=== PATIENT | female | born 1970 | race Caucasian/White ===

== ENCOUNTER → 2016-10-11 | Outpatient (CLI) | payer OTHER ==
[~2016-10-11] MED LIST: /CIPR75TA OR; /ONDA4TA OR; ADVIL PO; CARI350T; IBUP600T OR; METHACHOLINE KIT (J7674) INH ONE; ROBA750T OR; SOMA350T OR; TOPI100T; TOPI25TA2 OR; TRAM50TA2; TRAM50TA2 PO; VICO5TAB; VICO5TAB OR; VOLT1GEL TOP; ZANA4CAP OR; savella PO
== END ==
LOC: M CARPUL 14:09
PROVIDERS: ATTEND Nurse Practitioner Adult Health
DX: Z72.0 Tobacco use (principal)

== ENCOUNTER → 2016-10-29 | Outpatient (REF) | payer OTHER ==
[~2016-10-29] MED LIST changes: -METHACHOLINE KIT (J7674) INH ONE
== END ==
LOC: M SFHCWAGY 15:48
PROVIDERS: ATTEND Family Medicine
DX: R87.613 High grade squamous intraepithelial lesion on cytologic smear of cervix (HGSIL) (principal)

== ENCOUNTER → 2016-11-12 | Outpatient (CLI) | payer OTHER ==
--- NOTE | 2016-11-12 16:29 | REP ---
Clinical: Menorrhagia with irregular menstrual cycles . Technique: Transabdominal pelvic ultrasound followed by transvaginal examination for better evaluation of the endometrium and adnexa with color Doppler evaluation of the ovaries. Findings: Bladder is unremarkable and measures 8.7 x 6.3 x 5.2 cm . Normal anteverted uterus measures 9.1 x 4.4 x 6.1 cm . The endometrial complex measures 7 mm thickness. No discrete uterine or endometrial abnormalities are appreciated. Bilateral ovaries are normal in appearance and vascularity without evidence for torsion. Right ovary measures 3.6 x 3.7 x 2.6 cm with 2.6 cm dominant follicle ; R I = 0.57 . Left ovary measures 1.7 x 1.2 x 1.4 cm with 1 cm follicle ; R I = 0.48 . No pelvic fluid or adnexal mass lesions. Impression: 1. Normal pelvic ultrasound. No torsion.
== END ==
LOC: M WHC 14:49
PROVIDERS: ATTEND Nurse Practitioner Family
DX: N92.0 Excessive and frequent menstruation with regular cycle (principal)

== ENCOUNTER 2016-11-14 22:50 | Emergency (ER) | payer OTHER | END 2016-11-15 00:25 | disposition left against medical advice (07) | LOC: M ED 22:50 | DX: T78.40XA Allergy, unspecified, initial encounter (principal); Z53.20 Procedure and treatment not carried out because of patient's decision for unspecified reasons ==

== ENCOUNTER → 2016-12-09 | Outpatient (CLI) | payer OTHER ==
[~2016-12-09] VITALS: Ht 162.6 cm; Wt 94.3 kg
[~2016-12-09] MED LIST changes: +ACET650T2 PO; +AKWASOL OU; +ALBU17IN INH; +ALBUTEROL SULFATE 2.5 MG/0.5 ML INH NEB SOLN As Ordered ONE; +EXCETAB80 PO; +FLON1SPR; +IBUP60TA PO; +LIDOCAINE 2% INJ 100 MG/5 ML SDV (FOR ANES.) As Ordered ONE; +LIPI10TA PO; +NEUR600T PO; +NS 1,000 ML IV SCH; +OMEP40CA2 PO; +PROPOFOL 500 MG/50 ML VIAL As Ordered ONE; +ROBA750T4 PO; +SALI0.652; +SING10TA32 PO; +STEROID SHOT
--- NOTE | 2016-12-09 08:14 | ROOR ---
Patient Name: Dana Foster Procedure Date: 12/09/2016 7:49 AM Date of : 1970 Age: 46 Room: [facility] Gender: Female Note Status: Finalized Procedure: Upper GI endoscopy Indications: Heartburn Providers: Sagar SHAIKH MD Referring MD: Dasha Winchester NP Requesting Provider: Medicines: Monitored Anesthesia Care Complications: No immediate complications. Procedure: Pre-Anesthesia Assessment: - The heart rate, respiratory rate, oxygen saturations, blood pressure, adequacy of pulmonary ventilation, and response to care were monitored throughout the procedure. The Endoscope was introduced through the mouth, and advanced to the second part of duodenum. The upper GI endoscopy was accomplished without difficulty. The patient tolerated the procedure well. Findings: Small Hiatal Hernia. The esophagus was normal. The stomach was normal. The examined duodenum was normal. Impression: - Small Hiatal Hernia. - Normal esophagus. - Normal stomach. - Normal examined duodenum. - No specimens collected. Recommendation: - Follow an antireflux regimen indefinitely. - Continue present medications. Sagar Shaikh MD Sagar SHAIKH MD 12/09/2016 8:14:10 AM This report has been signed electronically. Number of Addenda: 0 Note Initiated On: 12/09/2016 7:49 AM Estimated Blood Loss: Estimated blood loss: none.
--- NOTE | 2016-12-09 08:16 | ROOR ---
Patient Name: Dana Foster Procedure Date: 12/09/2016 7:49 AM Date of : 1970 Age: 46 Room: [facility] Gender: Female Note Status: Finalized Procedure: Colonoscopy Indications: Change in bowel habits, Constipation Providers: Sagar SHAIKH MD Referring MD: Dasha Winchester NP Requesting Provider: Medicines: Monitored Anesthesia Care Complications: No immediate complications. Procedure: Pre-Anesthesia Assessment: - The heart rate, respiratory rate, oxygen saturations, blood pressure, adequacy of pulmonary ventilation, and response to care were monitored throughout the procedure. The Colonoscope was introduced through the anus and advanced to the terminal ileum, with identification of the appendiceal orifice and IC valve. The colonoscopy was performed without difficulty. The patient tolerated the procedure well. The quality of the bowel preparation was good. Findings: The perianal and digital rectal examinations were normal. (Exam: Complete, Prep: Good or Excellent.) The terminal ileum appeared normal. The entire examined colon appeared normal on direct and retroflexion views. Small Internal Hemorrhoids. Impression: - The examined portion of the ileum was normal. - The entire examined colon is normal on direct and retroflexion views. - Small Internal Hemorrhoids. - No specimens collected. Recommendation: - Continue present medications. Sagar Shaikh MD Sagar HSAIKH MD 12/09/2016 8:16:14 AM This report has been signed electronically. Number of Addenda: 0 Note Initiated On: 12/09/2016 7:49 AM Estimated Blood Loss: Estimated blood loss: none.
[2016-12-09 08:45] VITALS: BP 147/88
== END ==
LOC: M OPP 07:13
PROVIDERS: ATTEND Internal Medicine Gastroenterology
DX: R19.4 Change in bowel habit (principal); Z80.0 Family history of malignant neoplasm of digestive organs; K64.8 Other hemorrhoids; R12 Heartburn; K44.9 Diaphragmatic hernia without obstruction or gangrene; F17.200 Nicotine dependence, unspecified, uncomplicated; E78.00 Pure hypercholesterolemia, unspecified; M54.2 Cervicalgia; G43.909 Migraine, unspecified, not intractable, without status migrainosus; R56.9 Unspecified convulsions; J45.909 Unspecified asthma, uncomplicated; R06.83 Snoring; Z79.899 Other long term (current) drug therapy; Z88.5 Allergy status to narcotic agent; Z88.8 Allergy status to other drugs, medicaments and biological substances; Z91.040 Latex allergy status; Z91.89 Other specified personal risk factors, not elsewhere classified

== ENCOUNTER → 2017-01-18 | Outpatient (REF) | payer OTHER ==
[~2017-01-18] MED LIST changes: -ALBUTEROL SULFATE 2.5 MG/0.5 ML INH NEB SOLN As Ordered ONE; -LIDOCAINE 2% INJ 100 MG/5 ML SDV (FOR ANES.) As Ordered ONE; -NS 1,000 ML IV SCH; -PROPOFOL 500 MG/50 ML VIAL As Ordered ONE
[2017-01-18 19:34] LABS: ALBUMIN 3.8 GM/DL (3.2-5.2); ALBUMIN/GLOBULIN RATIO 1.12 (1.00-1.93); ALKALINE PHOSPHATASE 68 U/L (45-117); ALT/SGPT 14 U/L (12-78); ANION GAP 5 MEQ/L (8-16); AST/SGOT 10 U/L (15-37); BILIRUBIN,TOTAL 0.3 MG/DL (0.2-1.0); BLOOD UREA NITROGEN 10 MG/DL (7-18); CALCIUM LEVEL 8.6 MG/DL (8.5-10.1); CARBON DIOXIDE LEVEL 28 MEQ/L (21-32); CHLORIDE LEVEL 107 MEQ/L (98-107); GLOMERULAR FILTRATION RATE > 60.0 (>58); GLUCOSE, FASTING 89 MG/DL (70-105); POTASSIUM SERUM 4.6 MEQ/L (3.5-5.1); SODIUM LEVEL 140 MEQ/L (136-145); TOTAL PROTEIN 7.2 GM/DL (6.4-8.2)
[2017-01-18 20:13] LABS: BASO % 0.6 % (0.0-1.0); EOS # 0.2 K/mm3 (0.0-0.50); EOS % 3.6 % (0.0-3.0); LARGE UNSTAINED CELL # 0.1 K/mm3 (0.0-0.4); LARGE UNSTAINED CELL % 0.7 % (0.0-4.0); LYMPH # 2.3 K/mm3 (1.5-4.5); LYMPH % 34.3 % (24.0-44.0); MEAN CORPUSCULAR HEMOGLOBIN 29.2 pg (27.0-33.0); MEAN CORPUSCULAR HGB CONC 32.6 g/dl (32.0-36.5); MEAN CORPUSCULAR VOLUME 89.6 fl (80.0-96.0); MONO # 0.3 K/mm3 (0.0-0.8); MONO % 4.4 % (0.0-5.0); NEUTROPHILS # 3.7 K/mm3 (1.8-7.7); NEUTROPHILS % 56.4 % (36.0-66.0); PLATELET COUNT, AUTOMATED 415 k/mm3 (150-450); RED CELL DISTRIBUTION WIDTH 12.6 % (11.5-14.5); WHITE BLOOD COUNT 6.6 K/mm3 (4.0-10.0)
[2017-01-18 21:14] LABS: ERYTHROCYTE SEDIMENTATION RATE 11 mm/hr (0-20)
[2017-01-21 00:06] LABS: Lyme Disease IgG/IgM Antibodie <0.91 ISR (0.00-0.90); Lyme Disease IgM Ab Quantitati <0.80 index (0.00-0.79)
== END ==
LOC: M LABDRAW1 17:10
PROVIDERS: ATTEND Internal Medicine Rheumatology
DX: M35.9 Systemic involvement of connective tissue, unspecified (principal); Z79.899 Other long term (current) drug therapy

== ENCOUNTER → 2017-01-24 | Outpatient (REF) | payer OTHER | LOC: M LAB REF 16:58 | PROVIDERS: ATTEND Obstetrics & Gynecology | DX: N87.1 Moderate cervical dysplasia (principal) ==

== ENCOUNTER → 2017-03-30 | Outpatient (REF) ==
[~2017-03-30] MED LIST changes: -ACET650T2 PO; +ACET650T3 PO; +CELE1CAP9 PO; +IBUP1TAB6 PO; -IBUP60TA PO
--- NOTE | 2017-03-30 15:58 | REP ---
PARTIAL LUMBAR SPINE, THREE VIEWS: HISTORY: Degenerative disc disease. There is no acute fracture or subluxation. The intervertebral discs are decreased in height consistent with disc degeneration. Osteophytes are present on L1 through 4. IMPRESSION: Degenerative change as described above. Signed by Bhavik Ko MD 03/30/2017 04:04 P
== END ==
LOC: M SMT 14:35
PROVIDERS: ATTEND Internal Medicine
DX: Z02.1 Encounter for pre-employment examination (principal)

== ENCOUNTER 2017-07-16 15:51 | Emergency (ER) | payer OTHER ==
[~2017-07-16] VITALS: Ht 160 cm; Wt 101.4 kg
[~2017-07-16 15:51] MED LIST changes: -CELE1CAP9 PO
[2017-07-16 16:11] VITALS: BP 147/73
[2017-07-16] MEDS ORDERED: CELE1CAP9 PO (16:16)
[2017-07-16] MEDS ORDERED: NORCO 5/325MG TABLET (BULK FOR ED) PO ONE (19:00)
[2017-07-16] MEDS ORDERED: NORCO, ANEXSIA 5/325MG TABLET (HYDROcodone/ACETAMINOPHEN) PO ONE (19:00)
[2017-07-16] MEDS ORDERED: ONDANSETRON 4 MG ORAL DISINTEGRATING TAB (S0181) PO ONE (19:00)
== END 2017-07-16 19:14 | disposition home or self-care (01) ==
LOC: M ED 15:51
DX: M54.12 Radiculopathy, cervical region (principal); M54.16 Radiculopathy, lumbar region; G89.29 Other chronic pain; J45.909 Unspecified asthma, uncomplicated; K21.9 Gastro-esophageal reflux disease without esophagitis; Z88.5 Allergy status to narcotic agent; Z88.8 Allergy status to other drugs, medicaments and biological substances; Z91.040 Latex allergy status; L23.1 Allergic contact dermatitis due to adhesives; Z79.899 Other long term (current) drug therapy

== ENCOUNTER 2018-01-11 02:49 | Emergency (ER) | payer OTHER ==
[2018-01-11] MEDS: DOXYCYCLINE HYCLATE 100 MG TAB PO (06:37)
== END 2018-01-11 06:45 | disposition home or self-care (01) ==
LOC: M ED 02:49
DX: S40.261A Insect bite (nonvenomous) of right shoulder, initial encounter (principal); W57.XXXA Bitten or stung by nonvenomous insect and other nonvenomous arthropods, initial encounter; Y92.89 Other specified places as the place of occurrence of the external cause; J44.9 Chronic obstructive pulmonary disease, unspecified; K21.9 Gastro-esophageal reflux disease without esophagitis; G89.29 Other chronic pain; M54.9 Dorsalgia, unspecified; Z79.899 Other long term (current) drug therapy; Z88.5 Allergy status to narcotic agent; Z88.8 Allergy status to other drugs, medicaments and biological substances; Z91.048 Other nonmedicinal substance allergy status; F17.210 Nicotine dependence, cigarettes, uncomplicated
CPT/HCPCS: 99283

== ENCOUNTER 2018-04-02 18:08 | Emergency (ER) | payer OTHER ==
[2018-04-02] MEDS: NORCO, ANEXSIA 5/325MG TABLET (HYDROcodone/ACETAMINOPHEN) PO (20:09)
[2018-04-02] MEDS: NORCO 5/325MG TABLET (BULK FOR ED) PO (20:47)
== END 2018-04-02 20:49 | disposition home or self-care (01) ==
LOC: M ED 18:08
DX: S62.346A Nondisplaced fracture of base of fifth metacarpal bone, right hand, initial encounter for closed fracture (principal); W22.09XA Striking against other stationary object, initial encounter; Y92.89 Other specified places as the place of occurrence of the external cause; J45.909 Unspecified asthma, uncomplicated; G43.909 Migraine, unspecified, not intractable, without status migrainosus; M54.9 Dorsalgia, unspecified; K02.9 Dental caries, unspecified; Z79.899 Other long term (current) drug therapy; F17.200 Nicotine dependence, unspecified, uncomplicated; Z88.5 Allergy status to narcotic agent; Z88.8 Allergy status to other drugs, medicaments and biological substances; Z91.040 Latex allergy status; Z91.048 Other nonmedicinal substance allergy status
CPT/HCPCS: 73130

== ENCOUNTER → 2018-06-02 | Outpatient (REF) | payer OTHER ==
[2018-06-07 00:07] LABS: HPV HYBRID CAPTURE II Positive (Negative)
== END ==
LOC: M LAB REF 18:12
DX: Z12.4 Encounter for screening for malignant neoplasm of cervix (principal)

== ENCOUNTER → 2018-06-14 | Outpatient (REF) | payer OTHER | LOC: M LAB REF 17:46 | DX: L03.113 Cellulitis of right upper limb (principal) ==

== ENCOUNTER 2018-10-21 21:40 | Emergency (ER) | payer OTHER ==
[~2018-10-21] VITALS: Ht 160 cm; Wt 94.5 kg
[~2018-10-21 21:40] MED LIST changes: +CELE1CAP9 PO; +TIZA4CAP PO
[2018-10-21] MEDS ORDERED: TRAM-533 PO (21:48)
[2018-10-21] MEDS ORDERED: GABA800T4 PO (21:48)
[2018-10-21] MEDS ORDERED: BACL10TA2 PO (21:48)
[2018-10-21] MEDS ORDERED: NAPROXEN 250 MG TAB PO ONE (23:15)
[2018-10-21] MEDS ORDERED: NORCO, ANEXSIA 5/325MG TABLET (HYDROcodone/ACETAMINOPHEN) PO ONE (23:15)
[2018-10-21 23:17] VITALS: BP 140/78
[2018-10-21] MEDS ORDERED: NAPR250T4 PO (23:23)
--- NOTE | 2018-10-22 08:52 | REP ---
Clinical: Trauma. Technique: AP, lateral, bilateral oblique views of the right knee Findings: The osseous structures and joint spaces are intact and normal. There is no evidence for acute fracture or dislocation. No joint effusion is appreciated. Surrounding soft tissues are unremarkable. No subcutaneous emphysema or radiodense foreign body. Impression: Normal examination. No acute fracture or dislocation. Electronically Signed by Donald Brewster MD 10/22/2018 08:44 A
--- NOTE | 2018-10-22 09:08 | REP ---
Clinical: Trauma. Technique: AP, lateral, bilateral oblique views of the right hand. Comparison: 04/02/2018. Findings: Prior fixation for fifth metacarpal fracture noted. No acute fracture or dislocation identified. No subcutaneous emphysema or significant foreign body. Impression: Status post fixation for fifth metacarpal fracture. No acute fracture or dislocation identified. Electronically Signed by Donald Brewster MD 10/22/2018 09:00 A
== END 2018-10-21 23:29 | disposition home or self-care (01) ==
LOC: M ED 21:40
DX: S60.221A Contusion of right hand, initial encounter (principal); S80.01XA Contusion of right knee, initial encounter; W01.0XXA Fall on same level from slipping, tripping and stumbling without subsequent striking against object, initial encounter; Y92.098 Other place in other non-institutional residence as the place of occurrence of the external cause; G43.909 Migraine, unspecified, not intractable, without status migrainosus; G89.29 Other chronic pain; Z88.5 Allergy status to narcotic agent; Z88.8 Allergy status to other drugs, medicaments and biological substances; Z91.040 Latex allergy status; Z91.048 Other nonmedicinal substance allergy status; Z79.899 Other long term (current) drug therapy

== ENCOUNTER → 2018-11-09 | Outpatient (REF) | payer OTHER ==
[~2018-11-09] MED LIST changes: +BACL10TA2 PO; +GABA800T4 PO; +NAPR250T4 PO; +TRAM-533 PO
[2018-11-09 16:03] LABS: HEMATOCRIT 39.1 % (36.0-47.0); MEAN CORPUSCULAR HEMOGLOBIN 29.9 pg (27.0-33.0); MEAN CORPUSCULAR HGB CONC 33.2 g/dl (32.0-36.5); MEAN CORPUSCULAR VOLUME 89.9 fl (80.0-96.0); PLATELET COUNT, AUTOMATED 314 10^3/uL (150-450); RED BLOOD COUNT 4.35 10^6/uL (4.00-5.40); WHITE BLOOD COUNT 7.8 10^3/uL (4.0-10.0)
[2018-11-09 16:16] LABS: ALBUMIN 3.9 GM/DL (3.2-5.2); ALT/SGPT 22 U/L (12-78); BILIRUBIN,TOTAL 0.3 MG/DL (0.2-1.0); BLOOD UREA NITROGEN 13 MG/DL (7-18); CALCIUM LEVEL 8.6 MG/DL (8.5-10.1); CARBON DIOXIDE LEVEL 26 MEQ/L (21-32); CHLORIDE LEVEL 106 MEQ/L (98-107); CHOLESTEROL LEVEL 230 MG/DL (<200); CHOLESTEROL RISK RATIO 6.216 (<5); CREATININE FOR GFR 0.77 MG/DL (0.55-1.30); GLOMERULAR FILTRATION RATE > 60.0 (>58); GLUCOSE, FASTING 98 MG/DL (70-100); HDL CHOLESTEROL 37 MG/DL (>40); LDL CHOLESTEROL 159 MG/DL (<100); NON-HDL-C 193 MG/DL; POTASSIUM SERUM 4.7 MEQ/L (3.5-5.1); SODIUM LEVEL 137 MEQ/L (136-145); THYROID STIMULATING HORMONE 0.857 uIU/ML (0.358-3.740); TOTAL PROTEIN 7.3 GM/DL (6.4-8.2); TRIGLYCERIDES LEVEL 168 MG/DL (<150)
[2018-11-09 16:30] LABS: HEMOGLOBIN A1c 5.3 %
== END ==
LOC: M SFHCPLAZ 14:29
PROVIDERS: ATTEND Nurse Practitioner Adult Health
DX: Z00.00 Encounter for general adult medical examination without abnormal findings (principal); E78.01 Familial hypercholesterolemia; Z83.3 Family history of diabetes mellitus

== ENCOUNTER 2019-02-05 01:53 | Emergency (ER) | payer OTHER ==
[~2019-02-05] VITALS: Ht 160 cm; Wt 81.8 kg
[2019-02-05 01:53] VITALS: BP 185/87
[~2019-02-05 01:53] MED LIST changes: -/ONDA4TA OR; +ONDA-1 OR
== END 2019-02-05 03:08 | disposition left against medical advice (07) ==
LOC: M ED 01:53
DX: L98.9 Disorder of the skin and subcutaneous tissue, unspecified (principal); Z53.21 Procedure and treatment not carried out due to patient leaving prior to being seen by health care provider

== ENCOUNTER → 2019-02-06 | Outpatient (CLI) | payer OTHER ==
--- NOTE | 2019-02-06 16:51 | REPMRS ---
Patient History The patient states she has not had a clinical breast exam in over a year. Family history of colorectal cancer in father, endometrial cancer in mother. Digital Woman Screen Mammo: February 06, 2019 - Exam #: [id number] Bilateral CC and MLO view(s) were taken. Technologist: Jennifer Monroy Technologist Prior study comparison: September 10, 2016, digital woman screen mammo performed at [facility]. FINDINGS: There are scattered fibroglandular densities. There has been no change in the appearance of the mammogram from the prior studies. There is a mild amount of scattered fibroglandular density which is fairly symmetric. There is no interval development of dominant mass, architectural distortion, or clustered microcalcification suggestive of malignancy. 3-D tomosynthesis shows no additional findings. Assessment: BI-RADS/ACR category 1 mammogram. Negative Mammogram. Recommendation Routine screening mammogram of both breasts in 1 year (for women over age 40). This patient's Lifetime Breast Cancer RIsk is estimated at 8.7 %. This mammogram was interpreted with the aid of an FDA-approved computer-aided dectection system. Electronically Signed By: Rajesh Orozco MD 02/06/19 [id number]
== END ==
LOC: M WHC 14:33
PROVIDERS: ATTEND Nurse Practitioner Adult Health
DX: Z12.31 Encounter for screening mammogram for malignant neoplasm of breast (principal); Z80.49 Family history of malignant neoplasm of other genital organs

== ENCOUNTER 2019-04-07 19:36 | Emergency (ER) | payer OTHER ==
[~2019-04-07] VITALS: Ht 160 cm; Wt 93.2 kg
[2019-04-07] MEDS ORDERED: KETO0.02 (19:51)
[2019-04-07] MEDS ORDERED: BACL10TA2 (19:51)
[2019-04-07] MEDS ORDERED: ALL10TAB28 (19:51)
[2019-04-07] MEDS ORDERED: TRAM50TA2 (19:51)
[2019-04-07] MEDS ORDERED: NORCO, ANEXSIA 5/325MG TABLET (HYDROcodone/ACETAMINOPHEN) PO ONE (20:45)
[2019-04-07 21:27] VITALS: BP 147/70
[2019-04-07] MEDS ORDERED: NORC1TAB7 PO (21:36)
== END 2019-04-07 21:44 | disposition home or self-care (01) ==
LOC: M ED 19:36
DX: G89.29 Other chronic pain (principal); M54.9 Dorsalgia, unspecified; M54.30 Sciatica, unspecified side; M51.36 Other intervertebral disc degeneration, lumbar region; G43.909 Migraine, unspecified, not intractable, without status migrainosus; R56.9 Unspecified convulsions; J45.909 Unspecified asthma, uncomplicated; K92.9 Disease of digestive system, unspecified; Z72.0 Tobacco use; Z79.891 Long term (current) use of opiate analgesic; Z79.899 Other long term (current) drug therapy; Z91.89 Other specified personal risk factors, not elsewhere classified; Z91.040 Latex allergy status; Z88.5 Allergy status to narcotic agent; Z88.8 Allergy status to other drugs, medicaments and biological substances

== ENCOUNTER 2019-11-04 15:31 | Emergency (ER) | payer OTHER ==
[~2019-11-04] VITALS: Ht 167.6 cm; Wt 103.0 kg
[2019-11-04 15:31] VITALS: BP 147/90
[~2019-11-04 15:31] MED LIST changes: +ALL10TAB29; +BACL10TA2; +KETO0.02; +NORC1TAB7 PO; -OMEP40CA2 PO; +OMEP40CA97 PO
[2019-11-04] MEDS ORDERED: traMADol 50 MG TAB PO ONE (17:30)
[2019-11-04] MEDS ORDERED: TRAM50TA2 PO (17:32)
== END 2019-11-04 17:40 | disposition home or self-care (01) ==
LOC: M ED 15:31
DX: G89.29 Other chronic pain (principal); M54.5 Low back pain; J45.909 Unspecified asthma, uncomplicated; M54.10 Radiculopathy, site unspecified; G43.909 Migraine, unspecified, not intractable, without status migrainosus; H40.9 Unspecified glaucoma; Z79.899 Other long term (current) drug therapy; Z88.5 Allergy status to narcotic agent; Z88.8 Allergy status to other drugs, medicaments and biological substances; Z91.040 Latex allergy status; Z91.048 Other nonmedicinal substance allergy status; F17.210 Nicotine dependence, cigarettes, uncomplicated

== ENCOUNTER 2020-03-25 17:10 | Emergency (ER) | payer OTHER ==
[~2020-03-25] VITALS: Ht 160 cm; Wt 103.4 kg
[2020-03-25] MEDS ORDERED: KETOROLAC 60MG 2ML VIAL IM ONE (18:00)
--- NOTE | 2020-03-25 18:45 | REP ---
Clinical: Sinusitis. Technique: Five views of the sinuses. Findings: Mild mucosal thickening to the maxillary sinuses cannot be excluded. No fluid level identified. Osseous structures are intact and normal. Incidental nasal piercing. Impression: Mild mucosal thickening to the maxillary sinuses cannot be excluded. No fluid levels. Electronically Signed by Donald Brewster MD 03/25/2020 06:36 P
[2020-03-25] MEDS ORDERED: IBUP-1022 PO (19:05)
[2020-03-25] MEDS ORDERED: MAGICMW SSP (19:05)
[2020-03-25 19:12] VITALS: BP 140/90
== END 2020-03-25 19:13 | disposition home or self-care (01) ==
LOC: M ED 17:10
DX: M70.62 Trochanteric bursitis, left hip (principal); J01.90 Acute sinusitis, unspecified
CPT/HCPCS: 70220; 96372; 99283; J1885

== ENCOUNTER → 2020-04-16 | Outpatient (REF) | payer OTHER ==
[~2020-04-16] MED LIST changes: -ALL10TAB29; +CETI-24; +IBUP-1022 PO; +MAGICMW SSP
[2020-04-16 19:44] LABS: HEMOGLOBIN A1c 5.5 %
[2020-04-16 19:54] LABS: ALBUMIN 4.2 GM/DL (3.2-5.2); ALT/SGPT 27 U/L (12-78); BILIRUBIN,TOTAL 0.3 MG/DL (0.2-1.0); BLOOD UREA NITROGEN 19 MG/DL (7-18); CALCIUM LEVEL 9.8 MG/DL (8.5-10.1); CARBON DIOXIDE LEVEL 30 MEQ/L (21-32); CHLORIDE LEVEL 106 MEQ/L (98-107); CHOLESTEROL LEVEL 299 MG/DL (<200); CHOLESTEROL RISK RATIO 8.542 (<5); GLOMERULAR FILTRATION RATE > 60.0 (>51); GLUCOSE, FASTING 87 MG/DL (70-100); HDL CHOLESTEROL 35 MG/DL (>40); LDL CHOLESTEROL 210 MG/DL (<100); NON-HDL-C 264 MG/DL; POTASSIUM SERUM 5.6 MEQ/L (3.5-5.1); SODIUM LEVEL 139 MEQ/L (136-145); TOTAL PROTEIN 8.1 GM/DL (6.4-8.2); TRIGLYCERIDES LEVEL 269 MG/DL (<150)
== END ==
LOC: M SFHCPLAZ 14:08
PROVIDERS: ATTEND Nurse Practitioner Adult Health
DX: Z00.00 Encounter for general adult medical examination without abnormal findings (principal); Z83.3 Family history of diabetes mellitus; Z13.29 Encounter for screening for other suspected endocrine disorder; Z13.220 Encounter for screening for lipoid disorders

== ENCOUNTER 2020-12-25 17:48 | Emergency (ER) | payer OTHER ==
[~2020-12-25] VITALS: Ht 160 cm; Wt 110.3 kg
[2020-12-25 17:48] VITALS: BP 143/80
[~2020-12-25 17:48] MED LIST changes: +NAPR-849 PO; -NAPR250T4 PO
[2020-12-25] MEDS ORDERED: OMEP-221 (17:58)
[2020-12-25] MEDS ORDERED: IBUP80TA (17:58)
[2020-12-25] MEDS ORDERED: METH-1165 (17:58)
[2020-12-25] MEDS ORDERED: TIMO0.5S29 (17:58)
[2020-12-25] MEDS ORDERED: LATA0.0015 (17:58)
[2020-12-25] MEDS ORDERED: DOXYCYCLINE HYCLATE 100MG TABLET PO ONE (21:15)
== END 2020-12-25 21:27 | disposition home or self-care (01) ==
LOC: M ED 17:48
DX: S10.96XA Insect bite of unspecified part of neck, initial encounter (principal); Y92.9 Unspecified place or not applicable; Y93.9 Activity, unspecified; Y99.9 Unspecified external cause status; Z88.6 Allergy status to analgesic agent; Z91.040 Latex allergy status; Z88.8 Allergy status to other drugs, medicaments and biological substances

== ENCOUNTER 2021-07-11 14:46 | Emergency (ER) | payer OTHER ==
[~2021-07-11] VITALS: Ht 160 cm; Wt 105.5 kg
[~2021-07-11 14:46] MED LIST changes: +IBUP80TA; +LATA0.0015; +METH-1165; +OMEP-221; +OMEP40CA4 PO; -OMEP40CA97 PO; +TIMO0.5S29
--- OUTSIDE RECORDS SUMMARY | 2021-07-11 14:56 | CCD ---
Author Organization Unknown Address [address] [place] [address] Phone [phone] Care Team Providers Care Tableau Report Developer Name Role Phone LOLY RAMIREZ 4 [phone] BIBI RODARTE ANIMAL TECHNICIAN 3 [phone] Allergies Code Code System Name Reaction Severity Status Onset 20350331 RxNorm Claritin Active 11/13/2013 592967 RxNorm Cymbalta Active 11/13/2013 735149 RxNorm Lyrica Active 11/13/2013 2670 RxNorm Codeine Active 09/03/2015 420562 RxNorm Mobic Active 12/02/2016 Amitriptyline Hcl Active Adhesive Tape Other Moderate Active Notes: ANTIHISTAMINES (Active): Reaction : swelling, rash;Severity: Critical;OnsetDate: 12/27/2016; Comment: Entered By: Janel Ceja LPN|Signed By: Janel Ceja LPN|Uncoded: Y; Medications Name Status Start Date Stop Date acetaminophen 300 mg-codeine 30 mg tablet Completed 09/01/2018 albuterol sulfate hfa 108 mcg/act aers Completed 08/12/2020 albuterol sulfate HFA 90 mcg/actuation a erosol inhaler INHALE TWO PUFFS BY MOUTH EVERY 4 HOURS NEEDED FOR COUGH Active Not available amitriptyline 10 mg tablet Completed 09/01 amoxicillin 500 mg caps Completed 020 amoxicillin 500 mg capsule Completed 08/12 amoxicillin 500 mg-potassium clavulanate 125 mg tablet TAKE ONE TABLET BY MOUTH TWICE A DAY FOR 10 DAYS Completed 06/15/2021 artificial tears 1.4 % soln Completed Artificial Tears (polyvinyl alcohol) 1.4 % eye drops INSTILL 1 DROP IN EACH EYE FOUR TIMES A DAY DIRECTED Active Not available baclofen 10 mg tabs Completed 08/12/2020 baclofen 10 mg tablet TAKE ONE TABLET BY MOUTH THREE TIMES A DAY NEEDED Active Not available Breo Ellipta 100 mcg-25 mcg/dose powder for inhalation Completed 09/01/2018 brimonidine 0.2 % eye drops INSTILL 1 DROP INTO BOTH EYES TWICE A DAY Completed 12/24/2020 brimonidine tartrate 0.2 % soln Completed 08/12/2020 carisoprodol 350 mg tablet TAKE ONE TABLET BY MOUTH THREE TIMES A DAY NEEDED MAXIMUM DAILY DOSE 3 Completed 10/07/2020 celecoxib 100 mg capsule Completed 018 celecoxib 200 mg capsule Completed 018 cephalexin 500 mg capsule Completed 2017 cetirizine 10 mg tablet 1 tab as needed Completed 02/11/2021 escitalopram 10 mg tablet Completed 2018 fluconazole 150 mg tabs Completed fluconazole 150 mg tablet TAKE ONE TABLET BY MOUTH TODAY AND REPEAT IN 10 DAYS Completed 06/15/2021 fluticasone propionate 50 mcg/act susp Completed 08/12/2020 fluticasone propionate 50 mcg/actuation nasal spray,suspension C ompleted 12/24/2020 gabapentin 800 mg tabs Completed 08/12/20 20 gabapentin 800 mg tablet TAKE ONE TABLET BY MOUTH THREE TIMES A DAY Active Not available hydroco/apap tab 5-325mg Completed 021 hydrocodone 5 mg-acetaminophen 325 mg tablet Completed 09/21/2019 ibuprofen 800 mg tabs Completed 0 ibuprofen 600 mg tablet Completed 12/25/19 21 ibuprofen 800 mg tablet Completed 06/15/20 21 ketotifen 0.025 % (0.035 %) eye drops INSTILL 1 DROP IN EACH EYE TWO TIMES A DAY DIRECTED Completed 02/11/2021 ketotifen fumarate 0.025 % soln Completed 02/11/2021 latanoprost 0.005 % soln Completed 2019 latanoprost 0.005 % eye drops INSTILL 1 DROP IN BOTH EYES AT NIGHT Active No t available lidoc/banop/mi ac SWISH AND SPIT WITH 10ML FOUR TIMES A DAY NEEDED FOR MUCOSITIS Completed 02/11/2021 lidocaine HCl 3 % topical cream Completed 08/12/2020 Lidocaine Viscous 2 % mucosal solution Active Not available lorazepam 1 mg tablet Completed 12/24/2020 Menopause Support once daily Active Not available methocarbamol 750 mg tabs Completed 10/07 methocarbamol 500 mg tablet Completed 03/2018 methocarbamol 750 mg tablet Active Not available methylprednisolone 4 mg tablets in a dose pack Completed 09/21/2019 methylprednisolone dose pack 4 mg tbpk Completed 10/07/2020 naproxen 500 mg tabs Completed 10/07/2020 naproxen 250 mg tablet 1 tab as needed Completed 10/07/2020 naproxen 500 mg tablet Take 1 tablet twice a day by oral route as needed. Active Not available Nasacort 55 mcg nasal spray aerosol Completed 09/01/2018 omeprazole 40 mg capsule,delayed release TAKE ONE CAPSULE BY MOUTH EVERY DAY 30 MINUTES BEFORE MORNING MEAL Active Not available pantoprazole 40 mg tablet,delayed release Completed 09/01/2018 paroxetine 10 mg tablet Completed 12/25/19 21 paroxetine hydrochloride 10 mg tabs Completed 12/24/2020 Windsor Oil 1,000 mg capsule Take 1 capsule every day by oral route. Completed 12/24/2020 Saline Nasal 0.65 % spray aerosol as needed Active Not available timolol maleate 0.5 % eye drops Active Not available tizanidine 4 mg tablet Completed 8 tramadol 50 mg tablet TAKE ONE TABLET BY MOUTH THREE TIMES A DAY NEEDED MAXIMUM DAILY DOSE 3 TABLETS Active Not available tramadol ER 100 mg tablet,extended release 24 hr Completed 09/01/2018 tramadol hcl 50 mg tabs Completed 020 venlafaxine ER 75 mg capsule,extended re lease 24 hr TAKE ONE CAPSULE BY MOUTH EVERY DAY WITH FOOD Completed 12/24/2020 venlafaxine hydrochloride er 75 mg cp24 Completed 12/24/2020 zonisamide 25 mg capsule Completed 019 zonisamide 50 mg capsule TAKE ONE CAPSULE BY MOUTH TWICE A DAY Completed 0 02/11/2021 Problems Name Status Onset Date Source Spondylosis without Myelopathy Active 11/13/2013 H istory Displacement of Lumbar Intervertebral Disc without Myelopath y Unknown 11/13/2013 History Prolapsed Lumbar Intervertebral Disc Active 11/13/2013 History Intervertebral Disc Prolapse Active 11/13/2013 His tory Neck Pain Active 11/13/2013 History Fibromyalgia Unknown 11/13/2013 History Muscle Pain Active 11/13/2013 History Lumbosacral Radiculopathy Active 05/30/2014 Histor y Inflammation of Sacroiliac Joint Active 07/23/2014 History Displacement of Cervical Intervertebral Disc Unknown History Degeneration of Cervical Intervertebral Disc Unknown History Cervical Radiculopathy Active 07/23/2016 History Sciatic Neuropathy Active 10/20/2017 History Cervico-occipital Neuralgia Active 01/31/2018 Hist ory Procedures Date Name Performed by 12/06/2018 Carpal Tunnel Surgery Notes: R Information not available 09/26/2017 Admission to [facility] Surgery De partment Notes: X2 2016, 2017 Information not available 09/26/2017 Dorsal Column Stimulation Notes: TRIAL Information not available 09/26/1990 Ligation of Fallopian Tube Information n ot available Notes: tubal ligation in 1990, right bonilla d surgery - 03/201807/11/2018 Results Lab Results Date Name Specimen Result Interpretation Description Value Range Status Address 05/11/2021 [facility] P[facility] Report NOS No observation recorded. [facility]: [address] [facility], [place] 05/11/2021 SARS CoV 2 RNA (COVID-19), QL, bay stocker-PCR, Respirat ory Specimen NOS Normal Sars-cov-2 negative negative Final [facility]: [address] [facility] [place] 02/16/2021 [facility] Pdf Report NOS No observation recorded. [facility]: [address] [facility], [place] 02/16/2021 SARS CoV 2 RNA (COVID-19), QL, bay stocker-PCR, Respiratory Sp ecimen Other No observation recorded. [facility]: [address] [facility], [place] 02/16/2021 SARS CoV 2 RNA (COVID-19), QL, bay stocker-PCR, Respirat ory Specimen NOS Normal Sars-cov-2 negative negative Final [facility]: [address] [facility], [place] 12/01/2020 [facility] Pdf Report NOS No observation recorded. [facility]: [address] [facility], [place] 12/01/2020 SARS CoV 2 RNA (COVID-19), QL, bay stocker-PCR, Respirat ory Specimen NOS Normal Sars-cov-2 negative negative Final [facility]: [address] [facility], [place] 11/21/2020 [facility] Pdf Report NOS No observation recorded. [facility]: [address] [facility], [place] 11/21/2020 SARS CoV 2 RNA (COVID-19), QL, bay stocker-PCR, Respirat ory Specimen NOS Normal Sars-cov-2 negative negative Final [facility]: [address] [facility], [place] 11/10/2020 [facility] Pdf Report NOS No observation recorded. [facility]: [address] [facility] [place] 11/10/2020 SARS CoV 2 RNA (COVID-19), QL, bay stocker-PCR, Respirat ory Specimen NOS Normal Sars-cov-2 negative negative Final [facility]: [address] [place] [address], [place] 10/15/2020 [facility] Pdf Report NOS No observation recorded. [facility]: [address] [place] [address], [place] 10/15/2020 SARS CoV 2 RNA (COVID-19), QL, bay stocker-PCR, Respirat ory Specimen NOS Normal Sars-cov-2 negative negative Final [facility]: [address] [place] [address], [place] 08/15/2020 [facility] Pdf Report NOS No observation recorded. [facility]: [address] [place] [address], [place] 08/15/2020 SARS CoV 2 RNA (COVID-19), QL, bay stocker-PCR, Respirat ory Specimen NOS Normal Sars-cov-2 negative negative Final [facility]: [address] [place] [address], [place] 07/11/2020 SARS CoV 2 RNA (COVID-19), QL, bay stocker-PCR, Respiratory Specim en No observation recorded. [facility]: [address] [place] [address] 07/11/2020 [facility] Pdf Report NOS No observation recorded. [facility]: [address] [place] [address], [place] 07/11/2020 SARS CoV 2 RNA (COVID-19), QL, bay stocker-PCR, Respirat ory Specimen NOS Normal Sars-cov-2 negative negative Final [facility]: [address] [place] [address], [place] 04/07/2020 SARS CoV 2 RNA (COVID-19), QL, bay stocker-PCR, Respiratory Specim en No observation recorded. [facility]: [address] [place] [address] 02/08/2020 SARS CoV 2 RNA (COVID-19), QL, bay stocker-PCR, Respiratory Specim en No observation recorded. [facility]: [address] [place] [address] 06/15/2021 Inflammation of Sacroiliac Joint; Cervico-occipital Neuralgia; Muscle Pain; Degeneration of Lumbar Intervertebral Disc; Degeneration of Lumbosacral Intervertebral Disc; Displacement of Lumbar Intervertebral Disc without Myelopathy; Intervertebral Disc Disorder; Spondylosis without Myelopathy; Lumbosacral Spondylosis without Myelopathy; Lumbar Radiculopathy; Cervical Radiculopathy; Displacement of Cervical Intervertebral Disc without Myelopathy; Degeneration of Cervical Intervertebral Disc; Cervical Spondylosis without Myelopathy; Piriformis Syndrome; Degeneration of Intervertebral Disc; Lumbosacra l Radiculopathy; Greater Trochanteric Pain Syndrome; Myofascial Pain Jeanette Gross ANIMAL TECHNICIAN: [id number] [place] [address], Ph. 05/14/2021 Muscle Pain; Piriformis Syndrome; Inflammation of Sacroiliac Joint; Cervico- occipital Neuralgia; Degeneration of Lumbar Intervertebral Disc; Degeneration of Lumbosacral Intervertebral Disc; Displacement of Lumbar Intervertebral Disc without Myelopathy; Intervertebral Disc Disorder; Spondylosis without Myelopathy; Lumbosacral Spondylosis without Myelopathy; Lumbar Radiculopathy; Cervical Radiculopathy; Displacement of Cervical Intervertebral Disc without Myelopathy; Degeneration of Cervical Intervertebral Disc; Cervical Spondylosis without Myelopathy; Degeneration of Intervertebral Disc; Lumbosacral Radiculopathy; Greater Trochanteric Pain Syndrome Kj Rodriguez MD: [id number] [address], Ph. 05/11/2021 Pre-surgery Testing; Viral Screening Kj Rodriguez MD: [id number] [address], Ph. [phone] 05/07/2021 Inflammation of Sacroiliac Joint; Cervico-occipital Neuralgia; Muscle Pain; Degeneration of Lumbar Intervertebral Disc; Degeneration of Lumbosacral Intervertebral Disc; Displacement of Lumbar Intervertebral Disc without Myelopathy; Intervertebral Disc Disorder; Spondylosis without Myelopathy; Lumbosacral Spondylosis without Myelopathy; Lumbar Radiculopathy; Cervical Radiculopathy; Displacement of Cervical Intervertebral Disc without Myelopathy; Degeneration of Cervical Intervertebral Disc; Cervical Spondylosis without Myelopathy; Piriformis Syndrome; Degeneration of Intervertebral Disc; Lumbosacra l Radiculopathy; Greater Trochanteric Pain Syndrome Jeanette Gross ANIMAL TECHNICIAN: [id number] [address], [place] [address], Ph. 03/18/2021 Inflammation of Sacroiliac Joint; Cervico-occipital Neuralgia; Muscle Pain; Degeneration of Lumbar Intervertebral Disc; Degeneration of Lumbosacral Intervertebral Disc; Displacement of Lumbar Intervertebral Disc without Myelopathy; Intervertebral Disc Disorder; Spondylosis without Myelopathy; Lumbosacral Spondylosis without Myelopathy; Lumbar Radiculopathy; Cervical Radiculopathy; Displacement of Cervical Intervertebral Disc without Myelopathy; Degeneration of Cervical Intervertebral Disc; Cervical Spondylosis without Myelopathy; Piriformis Syndrome; Degeneration of Intervertebral Disc; Lumbosacra l Radiculopathy; Greater Trochanteric Pain Syndrome Jeanette Gross NP: [id number] [address], Ph. 03/02/2021 Muscle Pain; Inflammation of Sacroiliac Joint; Cervico-occipital Neuralgia; Degeneration of Lumbar Intervertebral Disc; Degeneration of Lumbosacral Intervertebral Disc; Displacement of Lumbar Intervertebral Disc without Myelopathy; Intervertebral Disc Disorder; Spondylosis without Myelopathy; Lumbosacral Spondylosis without Myelopathy; Lumbar Radiculopathy; Cervical Radiculopathy; Displacement of Cervical Intervertebral Disc without Myelopathy; Degeneration of Cervical Intervertebral Disc; Cervical Spondylosis without Myelopathy; Piriformis Syndrome; Degeneration of Intervertebral Disc; Lumbosacra l Radiculopathy; Greater Trochanteric Pain Syndrome Kj Rodriguez MD: [address] [address], [place] [address], Ph. 02/19/2021 Inflammation of Sacroiliac Joint; Cervico-occipital Neuralgia; Muscle Pain; Degeneration of Lumbar Intervertebral Disc; Degeneration of Lumbosacral Intervertebral Disc; Displacement of Lumbar Intervertebral Disc without Myelopathy; Intervertebral Disc Disorder; Spondylosis without Myelopathy; Lumbosacral Spondylosis without Myelopathy; Lumbar Radiculopathy; Cervical Radiculopathy; Displacement of Cervical Intervertebral Disc without Myelopathy; Degeneration of Cervical Intervertebral Disc; Cervical Spondylosis without Myelopathy; Piriformis Syndrome; Degeneration of Intervertebral Disc; Lumbosacra l Radiculopathy; Greater Trochanteric Pain Syndrome Kj Rodriguez MD: [address] [address], [facility] [place] [address], Ph. 02/16/2021 Pre-surgery Testing; Viral Screening Kj Rodriguez MD: [id number] [address], [facility] [place] [address], Ph. [phone] 02/11/2021 Inflammation of Sacroiliac Joint; Cervico-occipital Neuralgia; Muscle Pain; Degeneration of Lumbar Intervertebral Disc; Degeneration of Lumbosacral Intervertebral Disc; Displacement of Lumbar Intervertebral Disc without Myelopathy; Intervertebral Disc Disorder; Spondylosis without Myelopathy; Lumbosacral Spondylosis without Myelopathy; Lumbar Radiculopathy; Cervical Radiculopathy; Displacement of Cervical Intervertebral Disc without Myelopathy; Degeneration of Cervical Intervertebral Disc; Cervical Spondylosis without Myelopathy; Piriformis Syndrome; Degeneration of Intervertebral Disc; Lumbosacra l Radiculopathy; Greater Trochanteric Pain Syndrome Jeanette Gross NP: [id number] [address], [facility] [place] [address], Ph. 01/14/2021 Lumbar Radiculopathy; Degeneration of Lumbar Intervertebral Disc; Degeneration of Lumbosacral Intervertebral Disc; Displacement of Lumbar Intervertebral Disc without Myelopathy; Intervertebral Disc Disorder; Spondylosis without Myelopathy; Lumbosacral Spondylosis without Myelopathy; Cervical Radiculopathy; Displacement of Cervical Intervertebral Disc without Myelopathy; Degeneration of Cervical Intervertebral Disc; Cervical Spondylosis without Myelopathy; Piriformis Syndrome; Degeneration of Intervertebral Disc; Inflammation of Sacroiliac Joint; Greater Trochanteric Pain Syndrome; Cervico-occipital Neuralgia; Muscle Pain Kj Rodriguez MD: [id number] [address], [facility] [place] [address], Ph. 01/09/2021 Pre-surgery Testing; Viral Screening Kj Rodriguez MD: [id number] [address], [facility] [place] [address], Ph. [phone] 12/24/2020 Inflammation of Sacroiliac Joint; Cervico-occipital Neuralgia; Muscle Pain; Degeneration of Lumbar Intervertebral Disc; Degeneration of Lumbosacral Intervertebral Disc; Displacement of Lumbar Intervertebral Disc without Myelopathy; Intervertebral Disc Disorder; Spondylosis without Myelopathy; Lumbosacral Spondylosis without Myelopathy; Lumbar Radiculopathy; Cervical Radiculopathy; Displacement of Cervical Intervertebral Disc without Myelopathy; Degeneration of Cervical Intervertebral Disc; Cervical Spondylosis without Myelopathy; Piriformis Syndrome; Degeneration of Intervertebral Disc; Lumbosacra l Radiculopathy; Greater Trochanteric Pain Syndrome Jeanette Gross NP: [id number] [address], [facility] [place] [address], Ph. 12/03/2020 Cervical Spondylosis without Myelopathy; Degeneration of Cervical Intervertebral Disc; Displacement of Cervical Intervertebral Disc without Myelopathy; Cervical Radiculopathy; Greater Trochanteric Pain Syndrome of Left Lower Limb; Greater Trochanteric Pain Syndrome; Inflammation of Sacroiliac Joint; Cervico-occipital Neuralgia; Muscle Pain; Degeneration of Lumbar Intervertebral Disc; Degeneration of Lumbosacral Intervertebral Disc; Displacement of Lumbar Intervertebral Disc without Myelopathy; Intervertebral Disc Disorder; Spondylosis without Myelopathy; Lumbosacral Spondylosis without Myelopathy; Lumbar Radiculopathy; Piriformis Syndrome; Degeneration of Intervertebral Disc; Lumbosacral Radiculopathy Kj Rodriguez MD: [id number] [place] [address], Ph. 12/01/2020 Pre-surgery Testing; Viral Screening Kj Rodriguez MD: [id number] [place] [address], Ph. [phone] 11/26/2020 Cervical Spondylosis without Myelopathy; Degeneration of Cervical Intervertebral Disc; Displacement of Cervical Intervertebral Disc without Myelopathy; Cervical Radiculopathy; Greater Trochanteric Pain Syndrome of Left Lower Limb; Greater Trochanteric Pain Syndrome; Inflammation of Sacroiliac Joint; Cervico-occipital Neuralgia; Muscle Pain; Degeneration of Lumbar Intervertebral Disc; Degeneration of Lumbosacral Intervertebral Disc; Displacement of Lumbar Intervertebral Disc without Myelopathy; Intervertebral Disc Disorder; Spondylosis without Myelopathy; Lumbosacral Spondylosis without Myelopathy; Lumbar Radiculopathy; Piriformis Syndrome; Degeneration of Intervertebral Disc; Lumbosacral Radiculopathy Kj Rodriguez MD: [id number] [address], [facility] [place] [address], Ph. 11/21/2020 Pre-surgery Testing; Viral Screening Kj Rodriguez MD: [id number] [address], [facility] [place] [address], Ph. [phone] 11/10/2020 Pre-surgery Testing; Viral Screening Kj Rodriguez MD: [address] [address], [facility] [place] [address], Ph. [phone] 10/20/2020 Greater Trochanteric Pain Syndrome of Left Lower Limb; Greater Trochanteric Pain Syndrome; Inflammation of Sacroiliac Joint; Cervico-occipital Neuralgia; Muscle Pain; Degeneration of Lumbar Intervertebral Disc; Degeneration of Lumbosacral Intervertebral Disc; Displacement of Lumbar Intervertebral Disc without Myelopathy; Intervertebral Disc Disorder; Spondylosis without Myelopathy; Lumbosacral Spondylosis without Myelopathy; Lumbar Radiculopathy; Cervical Radiculopathy; Displacement of Cervical Intervertebral Disc without Myelopathy; Degeneration of Cervical Intervertebral Disc; Cervical Spondylosis without Myelopathy; Piriformis Syndrome; Degeneration of Intervertebral Disc; Lumbosacral Radiculopathy Kj Rodriguez MD: [address] [address], [facility] [place] [address], Ph. 10/15/2020 Pre-surgery Testing; Viral Screening Kj Rodriguez MD: [id number] [address], [facility] [place] [address], Ph. [phone] 10/07/2020 Inflammation of Sacroiliac Joint; Cervico-occipital Neuralgia; Muscle Pain; Degeneration of Lumbar Intervertebral Disc; Degeneration of Lumbosacral Intervertebral Disc; Displacement of Lumbar Intervertebral Disc without Myelopathy; Intervertebral Disc Disorder; Spondylosis without Myelopathy; Lumbosacral Spondylosis without Myelopathy; Lumbar Radiculopathy; Cervical Radiculopathy; Displacement of Cervical Intervertebral Disc without Myelopathy; Degeneration of Cervical Intervertebral Disc; Cervical Spondylosis without Myelopathy; Piriformis Syndrome; Degeneration of Intervertebral Disc; Lumbosacra l Radiculopathy; Greater Trochanteric Pain Syndrome Jeanette Gross NP: [id number] [address], [place] [address], Ph. 09/02/2020 Muscle Pain; Greater Trochanteric Pain Syndrome of Left Lower Limb; Greater Trochanteric Pain Syndrome; Inflammation of Sacroiliac Joint; Cervico-occipital Neuralgia; Degeneration of Lumbar Intervertebral Disc; Degeneration of Lumbosacral Intervertebral Disc; Displacement of Lumbar Intervertebral Disc without Myelopathy; Intervertebral Disc Disorder; Spondylosis without Myelopathy; Lumbosacral Spondylosis without Myelopathy; Lumbar Radiculopathy; Cervical Radiculopathy; Displacement of Cervical Intervertebral Disc without Myelopathy; Degeneration of Cervical Intervertebral Disc; Cervical Spondylosis without Myelopathy; Piriformis Syndrome; Degeneration of Intervertebral Disc; Lumbosacral Radiculopathy Kj Rodriguez MD: [id number] [address], Ph. 08/20/2020 Greater Trochanteric Pain Syndrome of Left Lower Limb; Greater Trochanteric Pain Syndrome; Inflammation of Sacroiliac Joint; Cervico-occipital Neuralgia; Muscle Pain; Degeneration of Lumbar Intervertebral Disc; Degeneration of Lumbosacral Intervertebral Disc; Displacement of Lumbar Intervertebral Disc without Myelopathy; Intervertebral Disc Disorder; Spondylosis without Myelopathy; Lumbosacral Spondylosis without Myelopathy; Lumbar Radiculopathy; Cervical Radiculopathy; Displacement of Cervical Intervertebral Disc without Myelopathy; Degeneration of Cervical Intervertebral Disc; Cervical Spondylosis without Myelopathy; Piriformis Syndrome; Degeneration of Intervertebral Disc; Lumbosacral Radiculopathy Kj Rodriguez MD: [id number] [address], Ph. 08/15/2020 Pre-surgery Testing; Viral Screening Kj Rodriguez MD: [id number] [address], Ph. [phone] 08/12/2020 Inflammation of Sacroiliac Joint; Cervico-occipital Neuralgia; Muscle Pain; Degeneration of Lumbar Intervertebral Disc; Degeneration of Lumbosacral Intervertebral Disc; Displacement of Lumbar Intervertebral Disc without Myelopathy; Intervertebral Disc Disorder; Spondylosis without Myelopathy; Lumbosacral Spondylosis without Myelopathy; Lumbar Radiculopathy; Cervical Radiculopathy; Displacement of Cervical Intervertebral Disc without Myelopathy; Degeneration of Cervical Intervertebral Disc; Cervical Spondylosis without Myelopathy; Piriformis Syndrome; Degeneration of Intervertebral Disc; Lumbosacra l Radiculopathy; Greater Trochanteric Pain Syndrome Jeanette Gross NP: [id number] [address], Ph. 07/16/2020 Lumbar Radiculopathy; Degeneration of Lumbar Intervertebral Disc; Degeneration of Lumbosacral Intervertebral Disc; Displacement of Lumbar Intervertebral Disc without Myelopathy; Intervertebral Disc Disorder; Spondylosis without Myelopathy; Lumbosacral Spondylosis without Myelopathy; Muscle Pain; Inflammation of Sacroiliac Joint; Cervical Radiculopathy; Displacement of Cervical Intervertebral Disc without Myelopathy; Degeneration of Cervical Intervertebral Disc; Cervical Spondylosis without Myelopathy; Cervico-occipital Neuralgia; Piriformis Syndrome; Myofascial Pain; Degeneration of Intervertebral Disc; Lumbosacral Radiculopathy; Greater Trochanteric Pain Syndrome Kj Rodriguez MD: [id number] [address], Ph. 07/11/2020 Pre-surgery Testing; Viral Screening Kj Rodriguez MD: [address] [address], Ph. [phone] 07/08/2020 Inflammation of Sacroiliac Joint; Cervico-occipital Neuralgia; Muscle Pain; Degeneration of Lumbar Intervertebral Disc; Degeneration of Lumbosacral Intervertebral Disc; Displacement of Lumbar Intervertebral Disc without Myelopathy; Intervertebral Disc Disorder; Spondylosis without Myelopathy; Lumbosacral Spondylosis without Myelopathy; Lumbar Radiculopathy; Cervical Radiculopathy; Displacement of Cervical Intervertebral Disc without Myelopathy; Degeneration of Cervical Intervertebral Disc; Cervical Spondylosis without Myelopathy; Piriformis Syndrome; Myofascial Pain; Degeneration of Intervertebral Disc; Lumbosacral Radiculopathy; Greater Trochanteric Pain Syndrome Jeanette Gauthier Ginny, ANIMAL TECHNICIAN: [id number] [address], [place] [address], Ph. 06/11/2020 Inflammation of Sacroiliac Joint; Cervico-occipital Neuralgia; Muscle Pain; Degeneration of Lumbar Intervertebral Disc; Degeneration of Lumbosacral Intervertebral Disc; Displacement of Lumbar Intervertebral Disc without Myelopathy; Intervertebral Disc Disorder; Spondylosis without Myelopathy; Lumbosacral Spondylosis without Myelopathy; Lumbar Radiculopathy; Cervical Radiculopathy; Displacement of Cervical Intervertebral Disc without Myelopathy; Degeneration of Cervical Intervertebral Disc; Cervical Spondylosis without Myelopathy; Piriformis Syndrome; Myofascial Pain; Degeneration of Intervertebral Disc; Lumbosacral Radiculopathy; Greater Trochanteric Pain Syndrome Jeanette Gauthier Ginny ANIMAL TECHNICIAN: [id number] [address], Ph. 05/21/2020 Trochanteric Bursitis of Left Hip; Greater Trochanteric Pain Syndrome; Inflammation of Sacroiliac Joint; Cervico-occipital Neuralgia; Muscle Pain; Degeneration of Lumbar Intervertebral Disc; Degeneration of Lumbosacral Intervertebral Disc; Displacement of Lumbar Intervertebral Disc without Myelopathy; Intervertebral Disc Disorder; Spondylosis without Myelopathy; Lumbosacral Spondylosis without Myelopathy; Lumbar Radiculopathy; Cervical Radiculopathy; Displacement of Cervical Intervertebral Disc without Myelopathy; Degeneration of Cervical Intervertebral Disc; Cervical Spondylosis without Myelopathy; Piriformis Syndrome; Myofascial Pain; Degeneration of Intervertebral Disc; Lumbosacral Radiculopathy Kj Rodriguez MD: [id number] [address], [facility] [place] [address], Ph. 05/15/2020 Inflammation of Sacroiliac Joint; Cervico-occipital Neuralgia; Muscle Pain; Degeneration of Lumbar Intervertebral Disc; Degeneration of Lumbosacral Intervertebral Disc; Displacement of Lumbar Intervertebral Disc without Myelopathy; Intervertebral Disc Disorder; Spondylosis without Myelopathy; Lumbosacral Spondylosis without Myelopathy; Lumbar Radiculopathy; Cervical Radiculopathy; Displacement of Cervical Intervertebral Disc without Myelopathy; Degeneration of Cervical Intervertebral Disc; Cervical Spondylosis without Myelopathy; Piriformis Syndrome; Myofascial Pain; Degeneration of Intervertebral Disc; Lumbosacral Radiculopathy; Greater Trochanteric Pain Syndrome Jeanette Gross NP: [id number] [address], [facility] [place] [address], Ph. 04/28/2020 Myofascial Pain; Inflammation of Sacroiliac Joint; Cervico-occipital Neuralgia; Degeneration of Lumbar Intervertebral Disc; Degeneration of Lumbosacral Intervertebral Disc; Displacement of Lumbar Intervertebral Disc without Myelopathy; Intervertebral Disc Disorder; Spondylosis without Myelopathy; Lumbosacral Spondylosis without Myelopathy; Lumbar Radiculopathy; Cervical Radiculopathy; Displacement of Cervical Intervertebral Disc without Myelopathy; Degeneration of Cervical Intervertebral Disc; Cervical Spondylosis without Myelopathy; Piriformis Syndrome; Degeneration of Intervertebral Disc; Lumbosac ral Radiculopathy; Greater Trochanteric Pain Syndrome Kj Rodriguez MD: [address] [address], [place] [address], Ph. 04/23/2020 Inflammation of Sacroiliac Joint; Cervico-occipital Neuralgia; Muscle Pain; Degeneration of Lumbar Intervertebral Disc; Degeneration of Lumbosacral Intervertebral Disc; Displacement of Lumbar Intervertebral Disc without Myelopathy; Intervertebral Disc Disorder; Spondylosis without Myelopathy; Lumbosacral Spondylosis without Myelopathy; Lumbar Radiculopathy; Cervical Radiculopathy; Displacement of Cervical Intervertebral Disc without Myelopathy; Degeneration of Cervical Intervertebral Disc; Cervical Spondylosis without Myelopathy; Piriformis Syndrome; Myofascial Pain; Degeneration of Intervertebral Disc; Lumbosacral Radiculopathy; Greater Trochanteric Pain Syndrome Jeanette Gross NP: [id number] [address], [place] [address], Ph. 04/10/2020 Lumbar Radiculopathy; Degeneration of Lumbar Intervertebral Disc; Degeneration of Lumbosacral Intervertebral Disc; Degeneration of Intervertebral Disc; Displacement of Lumbar Intervertebral Disc without Myelopathy; Intervertebral Disc Disorder; Spondylosis without Myelopathy; Lumbosacral Spondylosis without Myelopathy; Cervical Radiculopathy; Displacement of Cervical Intervertebral Disc without Myelopathy; Degeneration of Cervical Intervertebral Disc; Cervical Spondylosis without Myelopathy; Piriformis Syndrome; Myofascial Pain; Lumbosacral Radiculopathy; Greater Trochanteric Pain Syndrome; Inflammation of Sacroiliac Joint; Cervico-occipital Neuralgia; Muscle Pain Kj Rodriguez MD: [id number] [address], [place] [address], Ph. 04/07/2020 Pre-surgery Testing; Viral Screening Kj Rodriguez MD: [id number] [address], [place] [address], Ph. [phone] 02/27/2020 Inflammation of Sacroiliac Joint; Cervico-occipital Neuralgia; Muscle Pain; Degeneration of Lumbar Intervertebral Disc; Degeneration of Lumbosacral Intervertebral Disc; Displacement of Lumbar Intervertebral Disc without Myelopathy; Intervertebral Disc Disorder; Spondylosis without Myelopathy; Lumbosacral Spondylosis without Myelopathy; Lumbar Radiculopathy; Cervical Radiculopathy; Displacement of Cervical Intervertebral Disc without Myelopathy; Degeneration of Cervical Intervertebral Disc; Cervical Spondylosis without Myelopathy; Piriformis Syndrome; Myofascial Pain; Degeneration of Intervertebral Disc; Lumbosacral Radiculopathy; Greater Trochanteric Pain Syndrome Jeanette Gross NP: [id number] [address], Ph. 02/13/2020 Trochanteric Bursitis of Left Hip; Greater Trochanteric Pain Syndrome; Inflammation of Sacroiliac Joint; Cervico-occipital Neuralgia; Muscle Pain; Degeneration of Lumbar Intervertebral Disc; Degeneration of Lumbosacral Intervertebral Disc; Displacement of Lumbar Intervertebral Disc without Myelopathy; Intervertebral Disc Disorder; Spondylosis without Myelopathy; Lumbosacral Spondylosis without Myelopathy; Lumbar Radiculopathy; Cervical Radiculopathy; Displacement of Cervical Intervertebral Disc without Myelopathy; Degeneration of Cervical Intervertebral Disc; Cervical Spondylosis without Myelopathy; Piriformis Syndrome; Myofascial Pain; Degeneration of Intervertebral Disc; Lumbosacral Radiculopathy Kj Rodriguez MD: [address] [address], [place] [address], Ph. 02/08/2020 Pre-surgery Testing Kj Rodriguez MD: [id number] [facility], [facility] [place] [address], Ph. 01/11/2020 Inflammation of Sacroiliac Joint; Cervico-occipital Neuralgia; Muscle Pain; Degeneration of Lumbar Intervertebral Disc; Degeneration of Lumbosacral Intervertebral Disc; Displacement of Lumbar Intervertebral Disc without Myelopathy; Intervertebral Disc Disorder; Spondylosis without Myelopathy; Lumbosacral Spondylosis without Myelopathy; Lumbar Radiculopathy; Cervical Radiculopathy; Displacement of Cervical Intervertebral Disc without Myelopathy; Degeneration of Cervical Intervertebral Disc; Cervical Spondylosis without Myelopathy; Piriformis Syndrome; Myofascial Pain; Degeneration of Intervertebral Disc; Lumbosacral Radiculopathy; Greater Trochanteric Pain Syndrome Jeanette Gross NP: [id number] [place] [address], Ph. 12/31/2019 Inflammation of Sacroiliac Joint; Cervico-occipital Neuralgia; Muscle Pain; Degeneration of Lumbar Intervertebral Disc; Degeneration of Lumbosacral Intervertebral Disc; Displacement of Lumbar Intervertebral Disc without Myelopathy; Intervertebral Disc Disorder; Spondylosis without Myelopathy; Lumbosacral Spondylosis without Myelopathy; Lumbar Radiculopathy; Cervical Radiculopathy; Displacement of Cervical Intervertebral Disc without Myelopathy; Degeneration of Cervical Intervertebral Disc; Cervical Spondylosis without Myelopathy; Piriformis Syndrome; Myofascial Pain; Degeneration of Intervertebral Disc; Lumbosacral Radiculopathy; Greater Trochanteric Pain Syndrome Jeanette Gross ANIMAL TECHNICIAN: [id number] [facility], [facility] [place] [address], Ph. 12/03/2019 Lumbosacral Radiculopathy; Degeneration of Lumbar Intervertebral Disc; Degeneration of Lumbosacral Intervertebral Disc; Displacement of Lumbar Intervertebral Disc without Myelopathy; Intervertebral Disc Disorder; Spondylosis without Myelopathy; Lumbosacral Spondylosis without Myelopathy; Lumbar Radiculopathy; Cervical Radiculopathy; Displacement of Cervical Intervertebral Disc without Myelopathy; Degeneration of Cervical Intervertebral Disc; Cervical Spondylosis without Myelopathy; Piriformis Syndrome; Myofascial Pain; Degeneration of Intervertebral Disc; Muscle Pain; Inflammation of Sacroiliac Joint; Cervico-occipital Neuralgia Kj Rodriguez MD: [id number] [address], Ph. 11/14/2019 Inflammation of Sacroiliac Joint; Cervico-occipital Neuralgia; Muscle Pain; Degeneration of Lumbar Intervertebral Disc; Degeneration of Lumbosacral Intervertebral Disc; Displacement of Lumbar Intervertebral Disc without Myelopathy; Intervertebral Disc Disorder; Spondylosis without Myelopathy; Lumbosacral Spondylosis without Myelopathy; Lumbar Radiculopathy; Cervical Radiculopathy; Displacement of Cervical Intervertebral Disc without Myelopathy; Degeneration of Cervical Intervertebral Disc; Cervical Spondylosis without Myelopathy; Piriformis Syndrome; Myofascial Pain; Degeneration of Intervertebral Disc; Lumbosacral Radiculopathy Jeanette Gross NP: [id number] [address], Ph. 10/24/2019 Myofascial Pain; Inflammation of Sacroiliac Joint; Cervico-occipital Neuralgia; Muscle Pain; Degeneration of Lumbar Intervertebral Disc; Degeneration of Lumbosacral Intervertebral Disc; Displacement of Lumbar Intervertebral Disc without Myelopathy; Intervertebral Disc Disorder; Spondylosis without Myelopathy; Lumbosacral Spondylosis without Myelopathy; Lumbar Radiculopathy; Cervical Radiculopathy; Displacement of Cervical Intervertebral Disc without Myelopathy; Degeneration of Cervical Intervertebral Disc; Cervical Spondylosis without Myelopathy; Piriformis Syndrome; Degeneration of Intervertebral Disc; Lumbosacral Radiculopathy Kj Rodriguez MD: [id number] [address], Ph. 10/02/2019 Myofascial Pain; Inflammation of Sacroiliac Joint; Cervico-occipital Neuralgia; Muscle Pain; Degeneration of Lumbar Intervertebral Disc; Degeneration of Lumbosacral Intervertebral Disc; Displacement of Lumbar Intervertebral Disc without Myelopathy; Intervertebral Disc Disorder; Spondylosis without Myelopathy; Lumbosacral Spondylosis without Myelopathy; Lumbar Radiculopathy; Cervical Radiculopathy; Displacement of Cervical Intervertebral Disc without Myelopathy; Degeneration of Cervical Intervertebral Disc; Cervical Spondylosis without Myelopathy; Piriformis Syndrome; Degeneration of Intervertebral Disc; Lumbosacral Radiculopathy Kj Rodriguez MD: [id number] [address], Ph. 09/21/2019 Inflammation of Sacroiliac Joint; Cervico-occipital Neuralgia; Muscle Pain; Degeneration of Lumbar Intervertebral Disc; Degeneration of Lumbosacral Intervertebral Disc; Displacement of Lumbar Intervertebral Disc without Myelopathy; Intervertebral Disc Disorder; Spondylosis without Myelopathy; Lumbosacral Spondylosis without Myelopathy; Lumbar Radiculopathy; Cervical Radiculopathy; Displacement of Cervical Intervertebral Disc without Myelopathy; Degeneration of Cervical Intervertebral Disc; Cervical Spondylosis without Myelopathy; Piriformis Syndrome; Myofascial Pain; Degeneration of Intervertebral Disc; Lumbosacral Radiculopathy Jeanette Gross NP: [id number] [address], Ph. 09/05/2019 Myofascial Pain; Piriformis Syndrome; Inflammation of Sacroiliac Joint; Cervico- occipital Neuralgia; Muscle Pain; Degeneration of Lumbar Intervertebral Disc; Degeneration of Lumbosacral Intervertebral Disc; Displacement of Lumbar Intervertebral Disc without Myelopathy; Intervertebral Disc Disorder; Spondylosis without Myelopathy; Lumbosacral Spondylosis without Myelopathy; Lumbar Radiculopathy; Cervical Radiculopathy; Displacement of Cervical Intervertebral Disc without Myelopathy; Degeneration of Cervical Intervertebral Disc; Cervical Spondylosis without Myelopathy; Degeneration of Intervertebral Disc; Lumbosacral Radiculopathy Kj Rodriguez MD: [id number] [address], Ph. 08/14/2019 Inflammation of Sacroiliac Joint; Cervico-occipital Neuralgia; Muscle Pain; Degeneration of Lumbar Intervertebral Disc; Degeneration of Lumbosacral Intervertebral Disc; Displacement of Lumbar Intervertebral Disc without Myelopathy; Intervertebral Disc Disorder; Spondylosis without Myelopathy; Lumbosacral Spondylosis without Myelopathy; Lumbar Radiculopathy; Cervical Radiculopathy; Displacement of Cervical Intervertebral Disc without Myelopathy; Degeneration of Cervical Intervertebral Disc; Cervical Spondylosis without Myelopathy; Piriformis Syndrome; Myofascial Pain; Degeneration of Intervertebral Disc; Lumbosacral Radiculopathy Jeanette Gross ANIMAL TECHNICIAN: [address] [address], [place] [address], Ph. 07/25/2019 Lumbar Radiculopathy; Degeneration of Lumbar Intervertebral Disc; Degeneration of Lumbosacral Intervertebral Disc; Displacement of Lumbar Intervertebral Disc without Myelopathy; Intervertebral Disc Disorder; Inflammation of Sacroiliac Joint; Cervico-occipital Neuralgia; Muscle Pain; Spondylosis without Myelopathy; Lumbosacral Spondylosis without Myelopathy; Cervical Radiculopathy; Displacement of Cervical Intervertebral Disc without Myelopathy; Degeneration of Cervical Intervertebral Disc; Cervical Spondylosis without Myelopathy; Piriformis Syndrome; Myofascial Pain; Degeneration of Intervertebral Disc; Lumbosacral Radiculopathy Kj Rodriguez MD: [id number] [address], Ph. 07/23/2019 Inflammation of Sacroiliac Joint; Cervico-occipital Neuralgia; Muscle Pain; Degeneration of Lumbar Intervertebral Disc; Degeneration of Lumbosacral Intervertebral Disc; Displacement of Lumbar Intervertebral Disc without Myelopathy; Intervertebral Disc Disorder; Spondylosis without Myelopathy; Lumbosacral Spondylosis without Myelopathy; Lumbar Radiculopathy; Cervical Radiculopathy; Displacement of Cervical Intervertebral Disc without Myelopathy; Degeneration of Cervical Intervertebral Disc; Cervical Spondylosis without Myelopathy; Piriformis Syndrome; Myofascial Pain; Degeneration of Intervertebral Disc; Lumbosacral Radiculopathy Jeanette Gross NP: [id number] [address], [place] [address], Ph. 06/28/2019 Inflammation of Sacroiliac Joint; Cervico-occipital Neuralgia; Muscle Pain; Degeneration of Lumbar Intervertebral Disc; Degeneration of Lumbosacral Intervertebral Disc; Displacement of Lumbar Intervertebral Disc without Myelopathy; Intervertebral Disc Disorder; Spondylosis without Myelopathy; Lumbosacral Spondylosis without Myelopathy; Lumbar Radiculopathy; Cervical Radiculopathy; Displacement of Cervical Intervertebral Disc without Myelopathy; Degeneration of Cervical Intervertebral Disc; Cervical Spondylosis without Myelopathy; Piriformis Syndrome; Myofascial Pain; Degeneration of Intervertebral Disc; Lumbosacral Radiculopathy Kj Rodriguez MD: [address] [address], [place] [address], Ph. 06/15/2019 Inflammation of Sacroiliac Joint; Cervico-occipital Neuralgia; Muscle Pain; Degeneration of Lumbar Intervertebral Disc; Degeneration of Lumbosacral Intervertebral Disc; Displacement of Lumbar Intervertebral Disc without Myelopathy; Intervertebral Disc Disorder; Spondylosis without Myelopathy; Lumbosacral Spondylosis without Myelopathy; Lumbar Radiculopathy; Cervical Radiculopathy; Displacement of Cervical Intervertebral Disc without Myelopathy; Degeneration of Cervical Intervertebral Disc; Cervical Spondylosis without Myelopathy; Piriformis Syndrome; Myofascial Pain; Degeneration of Intervertebral Disc; Lumbosacral Radiculopathy Jeanette Gorss NP: [id number] [address], Ph. 05/22/2019 Inflammation of Sacroiliac Joint; Cervico-occipital Neuralgia; Muscle Pain; Degeneration of Lumbar Intervertebral Disc; Degeneration of Lumbosacral Intervertebral Disc; Displacement of Lumbar Intervertebral Disc without Myelopathy; Intervertebral Disc Disorder; Spondylosis without Myelopathy; Lumbosacral Spondylosis without Myelopathy; Lumbar Radiculopathy; Cervical Radiculopathy; Displacement of Cervical Intervertebral Disc without Myelopathy; Degeneration of Cervical Intervertebral Disc; Cervical Spondylosis without Myelopathy; Piriformis Syndrome; Myofascial Pain; Degeneration of Intervertebral Disc; Lumbosacral Radiculopathy Jeanette Gross NP: [address] [address], [place] [address], Ph. 04/26/2019 Inflammation of Sacroiliac Joint; Cervico-occipital Neuralgia; Muscle Pain; Degeneration of Lumbar Intervertebral Disc; Degeneration of Lumbosacral Intervertebral Disc; Displacement of Lumbar Intervertebral Disc without Myelopathy; Intervertebral Disc Disorder; Spondylosis without Myelopathy; Lumbosacral Spondylosis without Myelopathy; Lumbar Radiculopathy; Cervical Radiculopathy; Displacement of Cervical Intervertebral Disc without Myelopathy; Degeneration of Cervical Intervertebral Disc; Cervical Spondylosis without Myelopathy; Piriformis Syndrome; Myofascial Pain; Degeneration of Intervertebral Disc; Lumbosacral Radiculopathy Kj Rodriguez MD: [address] [address], Ph. 04/18/2019 Inflammation of Sacroiliac Joint; Cervico-occipital Neuralgia; Muscle Pain; Degeneration of Lumbar Intervertebral Disc; Degeneration of Lumbosacral Intervertebral Disc; Displacement of Lumbar Intervertebral Disc without Myelopathy; Intervertebral Disc Disorder; Spondylosis without Myelopathy; Lumbosacral Spondylosis without Myelopathy; Lumbar Radiculopathy; Cervical Radiculopathy; Displacement of Cervical Intervertebral Disc without Myelopathy; Degeneration of Cervical Intervertebral Disc; Cervical Spondylosis without Myelopathy; Piriformis Syndrome; Myofascial Pain; Degeneration of Intervertebral Disc; Lumbosacral Radiculopathy Jeanette Gross NP: [id number] [address], Ph. 03/22/2019 Inflammation of Sacroiliac Joint; Cervico-occipital Neuralgia; Muscle Pain; Degeneration of Lumbar Intervertebral Disc; Degeneration of Lumbosacral Intervertebral Disc; Displacement of Lumbar Intervertebral Disc without Myelopathy; Intervertebral Disc Disorder; Spondylosis without Myelopathy; Lumbosacral Spondylosis without Myelopathy; Lumbar Radiculopathy; Cervical Radiculopathy; Displacement of Cervical Intervertebral Disc without Myelopathy; Degeneration of Cervical Intervertebral Disc; Cervical Spondylosis without Myelopathy; Piriformis Syndrome; Myofascial Pain; Degeneration of Intervertebral Disc; Lumbosacral Radiculopathy Kj Rodriguez MD: [id number] [address], Ph. 03/20/2019 Inflammation of Sacroiliac Joint; Cervico-occipital Neuralgia; Muscle Pain; Degeneration of Lumbar Intervertebral Disc; Degeneration of Lumbosacral Intervertebral Disc; Displacement of Lumbar Intervertebral Disc without Myelopathy; Intervertebral Disc Disorder; Spondylosis without Myelopathy; Lumbosacral Spondylosis without Myelopathy; Lumbar Radiculopathy; Cervical Radiculopathy; Displacement of Cervical Intervertebral Disc without Myelopathy; Degeneration of Cervical Intervertebral Disc; Cervical Spondylosis without Myelopathy; Piriformis Syndrome; Myofascial Pain; Degeneration of Intervertebral Disc; Lumbosacral Radiculopathy Kj Rodriguez MD: [address] [address], Ph. 03/12/2019 Inflammation of Sacroiliac Joint; Cervico-occipital Neuralgia; Muscle Pain; Degeneration of Lumbar Intervertebral Disc; Degeneration of Lumbosacral Intervertebral Disc; Displacement of Lumbar Intervertebral Disc without Myelopathy; Intervertebral Disc Disorder; Spondylosis without Myelopathy; Lumbosacral Spondylosis without Myelopathy; Lumbar Radiculopathy; Cervical Radiculopathy; Displacement of Cervical Intervertebral Disc without Myelopathy; Degeneration of Cervical Intervertebral Disc; Cervical Spondylosis without Myelopathy; Piriformis Syndrome; Myofascial Pain; Degeneration of Intervertebral Disc; Lumbosacral Radiculopathy Jeanette Gross NP: [id number] [address], Ph. 02/21/2019 Cervical Radiculopathy; Displacement of Cervical Intervertebral Disc without Myelopathy; Degeneration of Cervical Intervertebral Disc; Cervical Spondylosis without Myelopathy; Inflammation of Sacroiliac Joint; Cervico-occipital Neuralgia; Muscle Pain; Degeneration of Lumbar Intervertebral Disc; Degeneration of Lumbosacral Intervertebral Disc; Displacement of Lumbar Intervertebral Disc without Myelopathy; Intervertebral Disc Disorder; Spondylosis without Myelopathy; Lumbosacral Spondylosis without Myelopathy; Lumbar Radiculopathy; Piriformis Syndrome; Myofascial Pain; Degeneration of Intervertebral Disc; Lumbosacral Radiculopathy Kj Rodriguez MD: [id number] [address], Ph. 02/20/2019 Inflammation of Sacroiliac Joint; Cervico-occipital Neuralgia; Muscle Pain; Degeneration of Lumbar Intervertebral Disc; Degeneration of Lumbosacral Intervertebral Disc; Displacement of Lumbar Intervertebral Disc without Myelopathy; Intervertebral Disc Disorder; Spondylosis without Myelopathy; Lumbosacral Spondylosis without Myelopathy; Lumbar Radiculopathy; Cervical Radiculopathy; Displacement of Cervical Intervertebral Disc without Myelopathy; Degeneration of Cervical Intervertebral Disc; Cervical Spondylosis without Myelopathy; Piriformis Syndrome; Myofascial Pain; Degeneration of Intervertebral Disc; Lumbosacral Radiculopathy Jeanette Gross ANIMAL TECHNICIAN: [id number] [address], Ph. 02/09/2019 Lumbar Radiculopathy; Degeneration of Lumbar Intervertebral Disc; Degeneration of Lumbosacral Intervertebral Disc; Displacement of Lumbar Intervertebral Disc without Myelopathy; Intervertebral Disc Disorder; Inflammation of Sacroiliac Joint; Cervico-occipital Neuralgia; Muscle Pain; Spondylosis without Myelopathy; Lumbosacral Spondylosis without Myelopathy; Cervical Radiculopathy; Displacement of Cervical Intervertebral Disc without Myelopathy; Degeneration of Cervical Intervertebral Disc; Cervical Spondylosis without Myelopathy; Piriformis Syndrome; Myofascial Pain; Degeneration of Intervertebral Disc; Lumbosacral Radiculopathy Kj Rodriguez MD: [address] [place] [address], Ph. 12/18/2018 Inflammation of Sacroiliac Joint; Cervico-occipital Neuralgia; Muscle Pain; Degeneration of Lumbar Intervertebral Disc; Degeneration of Lumbosacral Intervertebral Disc; Displacement of Lumbar Intervertebral Disc without Myelopathy; Intervertebral Disc Disorder; Spondylosis without Myelopathy; Lumbosacral Spondylosis without Myelopathy; Lumbar Radiculopathy; Cervical Radiculopathy; Displacement of Cervical Intervertebral Disc without Myelopathy; Degeneration of Cervical Intervertebral Disc; Cervical Spondylosis without Myelopathy; Piriformis Syndrome; Myofascial Pain; Degeneration of Intervertebral Disc; Lumbosacral Radiculopathy Jeanette Gross ANIMAL TECHNICIAN: [id number] [address], Ph. 10/27/2018 Lumbar Radiculopathy; Displacement of Lumbar Intervertebral Disc without Myelopathy; Intervertebral Disc Disorder; Degeneration of Lumbar Intervertebral Disc; Lumbosacral Radiculopathy; Degeneration of Lumbosacral Intervertebral Disc; Inflammation of Sacroiliac Joint; Cervico-occipital Neuralgia; Muscle Pain; Spondylosis without Myelopathy; Lumbosacral Spondylosis without Myelopathy; Cervical Radiculopathy; Displacement of Cervical Intervertebral Disc without Myelopathy; Degeneration of Cervical Intervertebral Disc; Cervical Spondylosis without Myelopathy; Piriformis Syndrome; Myofascial Pain; Deg eneration of Intervertebral Disc Kj Rodriguez MD: [id number] [address], [place] [address], Ph. 10/17/2018 Inflammation of Sacroiliac Joint; Cervico-occipital Neuralgia; Muscle Pain; Degeneration of Lumbar Intervertebral Disc; Degeneration of Lumbosacral Intervertebral Disc; Displacement of Lumbar Intervertebral Disc without Myelopathy; Intervertebral Disc Disorder; Spondylosis without Myelopathy; Lumbosacral Spondylosis without Myelopathy; Lumbar Radiculopathy; Cervical Radiculopathy; Displacement of Cervical Intervertebral Disc without Myelopathy; Degeneration of Cervical Intervertebral Disc; Cervical Spondylosis without Myelopathy; Piriformis Syndrome; Myofascial Pain; Degeneration of Intervertebral Disc; Lumbosacral Radiculopathy Jeanette Gross NP: [id number] [address], Ph. 09/04/2018 Inflammation of Sacroiliac Joint; Cervico-occipital Neuralgia; Muscle Pain; Degeneration of Lumbar Intervertebral Disc; Degeneration of Lumbosacral Intervertebral Disc; Displacement of Lumbar Intervertebral Disc without Myelopathy; Intervertebral Disc Disorder; Spondylosis without Myelopathy; Lumbosacral Spondylosis without Myelopathy; Lumbar Radiculopathy; Cervical Radiculopathy; Displacement of Cervical Intervertebral Disc without Myelopathy; Degeneration of Cervical Intervertebral Disc; Cervical Spondylosis without Myelopathy; Piriformis Syndrome; Myofascial Pain; Degeneration of Intervertebral Disc; Lumbosacral Radiculopathy Kj Rodriguez MD: [id number] [address], [place] [address], Ph. 09/01/2018 Inflammation of Sacroiliac Joint; Cervico-occipital Neuralgia; Muscle Pain; Degeneration of Lumbar Intervertebral Disc; Degeneration of Lumbosacral Intervertebral Disc; Displacement of Lumbar Intervertebral Disc without Myelopathy; Intervertebral Disc Disorder; Spondylosis without Myelopathy; Lumbosacral Spondylosis without Myelopathy; Lumbar Radiculopathy; Cervical Radiculopathy; Displacement of Cervical Intervertebral Disc without Myelopathy; Degeneration of Cervical Intervertebral Disc; Cervical Spondylosis without Myelopathy; Piriformis Syndrome; Myofascial Pain; Degeneration of Intervertebral Disc; Lumbosacral Radiculopathy Jeanette Gross NP: [id number], [facility] [place] [address], Ph. 08/11/2018 Cervical Radiculopathy; Degeneration of Cervical Intervertebral Disc; Displacement of Cervical Intervertebral Disc without Myelopathy; Cervical Spondylosis without Myelopathy; Cervico-occipital Neuralgia; Piriformis Syndrome; Myofascial Pain; Inflammation of Sacroiliac Joint; Degeneration of Intervertebral Disc; Lumbosacral Radiculopathy; Lumbosacral Spondylosis without Myelopathy; Displacement of Lumbar Intervertebral Disc without Myelopathy Kj Rodriguez MD: [id number], [facility] [place] [address], Ph. Social History Tobacco Smoking Status Heavy Tobacco Smoker (1/2 pack per a day) Vaccine List None recorded. Plan of Care Reminders Provider Appointments None recorded. Lab None recorded. Referral None recorded. Procedures None recorded. Surgeries None recorded. Imaging None recorded. Vitals 06/15/2021 11:00AM FOLLOW-UP Height Blood Pressure 5 ft 3 in 150/94 mm[Hg] 05/07/2021 10:00AM FOLLOW-UP Height Blood Pressure 5 ft 3 in 136/94 mm[Hg] 02/11/2021 03:15PM FOLLOW-UP Height Blood Pressure 5 ft 3 in 146/79 mm[Hg] 12/24/2020 02:30PM FOLLOW-UP Blood Pressure 150/80 mm[Hg] 10/20/2020 09:30AM Greater Trochanteric Bursa Inj Height 5 ft 3 in 10/07/2020 02:45PM FOLLOW-UP Height 5 ft 3 in 08/12/2020 02:45PM FOLLOW-UP Height Blood Pressure 5 ft 3 in 157/84 mm[Hg] 07/08/2020 02:30PM FOLLOW-UP Height Blood Pressure 5 ft 3 in 158/104 mm[Hg] 05/15/2020 01:15PM FOLLOW-UP Height Blood Pressure 5 ft 3 in 158/96 mm[Hg] 04/23/2020 03:30PM FOLLOW-UP Height Blood Pressure 5 ft 3 in 110/75 mm[Hg] 02/13/2020 10:30AM Greater Trochanteric Bursa Inj Height 5 ft 3 in 01/11/2020 09:30AM FOLLOW-UP Height Blood Pressure 5 ft 3 in 130/79 mm[Hg] 12/31/2019 03:30PM FOLLOW-UP Height Weight BMI Blood Pressure 5 ft 3 in 210 lbs 37.2 kg/m2 11/14/2019 02:30PM FOLLOW-UP Height Blood Pressure 5 ft 3 in 142/80 mm[Hg] 10/24/2019 10:00AM Periformis Injection Height 5 ft 3 in 09/21/2019 10:30AM FOLLOW-UP Height Blood Pressure 5 ft 3 in 140/80 mm[Hg] 09/05/2019 01:30PM Periformis Injection Height 5 ft 3 in 08/14/2019 02:00PM FOLLOW-UP Height Weight BMI Blood Pressure 5 ft 3 in 210 lbs 37.2 kg/m2 134/74 mm[Hg] 07/25/2019 02:00PM Lumbar epidural steroid inject Height 5 ft 3 in 07/23/2019 03:30PM FOLLOW-UP Height Weight BMI Blood Pressure 5 ft 3 in 210 lbs 37.2 kg/m2 134/80 mm[Hg] 05/22/2019 08:15AM FOLLOW-UP Height Blood Pressure 5 ft 3 in 125/75 mm[Hg] 04/18/2019 11:00AM FOLLOW-UP Height Weight BMI Blood Pressure 5 ft 3 in 210 lbs 37.2 kg/m2 124/80 mm[Hg] 03/12/2019 02:15PM FOLLOW-UP Height Weight BMI Blood Pressure 5 ft 3 in 210.5 lbs 37.3 kg/m2 126/84 mm[Hg] 02/20/2019 02:45PM FOLLOW-UP Height Blood Pressure 5 ft 3 in 12/18/2018 02:30PM FOLLOW-UP Height Weight BMI Blood Pressure 5 ft 3 in 215 lbs 38.1 kg/m2 128/90 mm[Hg] 10/17/2018 03:00PM FOLLOW-UP Height Weight BMI Blood Pressure 5 ft 3 in 214 lbs 37.9 kg/m2 128/78 mm[Hg] 09/01/2018 01:45PM FOLLOW-UP Height Weight BMI Blood Pressure 5 ft 3 in 214 lbs 37.9 kg/m2 110/64 mm[Hg] 07/11/2018 Blood Pressure 130/90 mm[Hg] 06/06/2018 Weight BMI Blood Pressure 223 lbs 39.65 kg/m2 140/98 mm[Hg] 05/11/2018 Blood Pressure 145/89 mm[Hg] 05/01/2018 Weight BMI Blood Pressure 223 lbs 39.65 kg/m2 168/109 mm[Hg] 03/31/2018 Weight BMI Blood Pressure 223 lbs 39.65 kg/m2 142/88 mm[Hg] 03/17/2018 Weight BMI Blood Pressure 223 lbs 39.65 kg/m2 137/90 mm[Hg] 03/13/2018 Blood Pressure 136/85 mm[Hg] 03/09/2018 Weight BMI Blood Pressure 223 lbs 39.65 kg/m2 147/91 mm[Hg] 02/22/2018 Blood Pressure 118/76 mm[Hg] 02/15/2018 Weight BMI Blood Pressure 223 lbs 39.65 kg/m2 146/94 mm[Hg] 01/31/2018 Weight BMI Blood Pressure 223 lbs 39.65 kg/m2 146/88 mm[Hg] 12/20/2017 Blood Pressure 137/86 mm[Hg] 12/06/2017 Blood Pressure 165/100 mm[Hg] 11/17/2017 Blood Pressure 132/83 mm[Hg] 11/03/2017 Blood Pressure 147/77 mm[Hg] 10/20/2017 Weight BMI Blood Pressure 223 lbs 39.65 kg/m2 148/84 mm[Hg] 09/13/2017 Weight BMI Blood Pressure 223 lbs 39.65 kg/m2 141/85 mm[Hg] 09/02/2017 Blood Pressure 135/80 mm[Hg] 07/29/2017 Blood Pressure 145/85 mm[Hg] 07/07/2017 Weight BMI Blood Pressure 223 lbs 39.65 kg/m2 133/81 mm[Hg] 06/24/2017 Blood Pressure 145/68 mm[Hg] 05/11/2017 Blood Pressure 137/79 mm[Hg] 03/31/2017 Blood Pressure 152/90 mm[Hg] 01/17/2017 Blood Pressure 129/88 mm[Hg] 12/27/2016 Blood Pressure 137/90 mm[Hg] 12/02/2016 Blood Pressure 122/80 mm[Hg] 11/04/2016 Blood Pressure 146/92 mm[Hg] 09/28/2016 Blood Pressure 145/75 mm[Hg] 09/01/2016 Blood Pressure 148/84 mm[Hg] 08/04/2016 Blood Pressure 137/74 mm[Hg] 07/23/2016 Blood Pressure 146/95 mm[Hg] 06/14/2016 Blood Pressure 146/77 mm[Hg] 05/11/2016 Blood Pressure 140/97 mm[Hg] 04/07/2016 Blood Pressure 152/91 mm[Hg] 02/05/2016 Blood Pressure 159/96 mm[Hg] 12/24/2015 Blood Pressure 119/78 mm[Hg] 12/05/2015 Blood Pressure 134/77 mm[Hg] 11/05/2015 Weight BMI Blood Pressure 189 lbs 33.60 kg/m2 137/88 mm[Hg] 10/21/2015 Blood Pressure 124/85 mm[Hg] 09/24/2015 Blood Pressure 115/75 mm[Hg] 09/03/2015 Blood Pressure 152/91 mm[Hg] 08/14/2015 Weight BMI Blood Pressure 189 lbs 33.60 kg/m2 132/85 mm[Hg] 07/25/2015 Blood Pressure 154/75 mm[Hg] 06/24/2015 Weight BMI Blood Pressure 189 lbs 33.60 kg/m2 126/79 mm[Hg] 06/09/2015 Blood Pressure 140/95 mm[Hg] 04/25/2015 Blood Pressure 137/84 mm[Hg] 04/02/2015 Weight BMI Blood Pressure 189 lbs 33.60 kg/m2 136/90 mm[Hg] 03/05/2015 Blood Pressure 132/85 mm[Hg] 02/06/2015 Blood Pressure 147/93 mm[Hg] 10/31/2014 Blood Pressure 138/80 mm[Hg] 07/23/2014 Blood Pressure 138/93 mm[Hg] 06/11/2014 Blood Pressure 130/77 mm[Hg] 05/30/2014 Blood Pressure 131/83 mm[Hg] 05/07/2014 Blood Pressure 119/76 mm[Hg] 03/25/2014 Blood Pressure 127/80 mm[Hg] 11/13/2013 Height Weight BMI Blood Pressure 5 ft 3 in 168 lbs 29.87 kg/m2 130/82 mm[Hg]"
--- OUTSIDE RECORDS SUMMARY | 2021-07-11 14:56 | CCD ---
Author Organization Unknown Address [address] [place] [id number] Phone [phone] Care Team Providers Care Tar Chaser Name Role Phone LOLY RAMIREZ 4 [phone] BIBI ROADRTE [employer] 3 [phone] Allergies Code Code System Name Reaction Severity Status Onset 20350331 RxNorm Claritin Active 11/13/2013 901505 RxNorm Cymbalta Active 11/13/2013 177452 RxNorm Lyrica Active 11/13/2013 2670 RxNorm Codeine Active 09/03/2015 634242 RxNorm Mobic Active 12/02/2016 Amitriptyline Hcl Active 11/17/2017 Adhesive Tape Other Moderate Active Notes: ANTIHISTAMINES [...] MOUTH TWICE A DAY FOR 10 DAYS Active Not available artificial tears 1.4 % soln Completed Artificial [...] MOUTH TODAY AND REPEAT IN 10 DAYS Active Not available fluticasone propionate 50 mcg/act susp Completed 08/12/2020 [...] Completed 12/25/19 21 ibuprofen 800 mg tablet Active Not avai lable ketotifen 0.025 % (0.035 %) eye drops [...] needed Completed 10/07/2020 naproxen 500 mg tablet Completed Nasacort 55 mcg nasal spray aerosol Completed 09/01/2018 omeprazole 40 mg capsule,delayed release TAKE ONE CAPSULE BY MOUTH EVERY DAY 30 MINUTES BEFORE MORNING MEAL Active Not available pantoprazole 40 mg tablet,delayed release Completed 09/01/2018 paroxetine 10 mg tablet Completed 12/25/19 21 paroxetine hydrochloride 10 mg tabs Completed 12/24/2020 [place] Oil 1,000 mg capsule Take 1 capsule every day by oral route. Completed 12/24/2020 Saline Nasal 0.65 % spray aerosol as needed Active Not available timolol maleate 0.5 % eye drops Active Not available tizanidine 4 mg tablet Completed 8 tramadol 50 mg tablet TAKE ONE TABLET BY MOUTH THREE TIMES A DAY NEEDED MAXIMUM DAILY DOSE 3 Active Not available tramadol ER 100 mg [...] R Information not available 09/26/2017 Admission to [facility] Notes: X2 2016, 2017 Information not available 09/26/2017 Dorsal Column Stimulation Notes: TRIAL Information not available 09/26/1990 Ligation of Fallopian Tube Information n ot available Notes: tubal ligation in 1990, right bonilla d surgery - 03/201807/11/2018 Results Lab Results Date Name Specimen Result Interpretation Description Value Range Status Address 05/11/2021 [facility] Pdf Report NOS No observation recorded. [facility]: [address] [facility] [place] 05/11/2021 SARS CoV 2 RNA (COVID-19), QL, telephoner-PCR, Respirat ory Specimen NOS Normal Sars-cov-2 negative negative Final [facility]: [address] [facility] [place] 02/16/2021 [facility] Pdf Report NOS No observation recorded. [facility]: [address] [facility] [place] 02/16/2021 SARS CoV 2 RNA (COVID-19), QL, telephoner-PCR, Respiratory Sp ecimen Other No observation recorded. [facility]: [address] [facility] [place] 02/16/2021 SARS CoV 2 RNA (COVID-19), QL, telephoner-PCR, Respirat ory Specimen NOS Normal Sars-cov-2 negative negative Final [facility]: [address] [facility] [place] 12/01/2020 [facility] Pdf Report NOS No observation recorded. [facility]: [address] [facility] [place] 12/01/2020 SARS CoV 2 RNA (COVID-19), QL, telephoner-PCR, Respirat ory Specimen NOS Normal Sars-cov-2 negative negative Final [facility]: [address] [facility] [place] 11/21/2020 [facility] Pdf Report NOS No observation recorded. [facility]: [address] [facility] [place] 11/21/2020 SARS CoV 2 RNA (COVID-19), QL, telephoner-PCR, Respirat ory Specimen NOS Normal Sars-cov-2 negative negative Final [facility]: [address] [facility] [place] 11/10/2020 [facility] Pdf Report NOS No observation recorded. [facility]: [address] [facility] [place] 11/10/2020 SARS CoV 2 RNA (COVID-19), QL, telephoner-PCR, Respirat ory Specimen NOS Normal Sars-cov-2 negative negative Final [facility]: [address] [facility] [place] 10/15/2020 [facility] Pdf Report NOS No observation recorded. [facility]: [address] [facility] [place] 10/15/2020 SARS CoV 2 RNA (COVID-19), QL, telephoner-PCR, Respirat ory Specimen NOS Normal Sars-cov-2 negative negative Final [facility]: [address] [place] [address], [place] 08/15/2020 [facility] Pdf Report NOS No observation recorded. [facility]: [address] [place] [address], [place] 08/15/2020 SARS CoV 2 RNA (COVID-19), QL, telephoner-PCR, Respirat ory Specimen NOS Normal Sars-cov-2 negative negative Final [facility]: [address] [place] [address], [place] 07/11/2020 SARS CoV 2 RNA (COVID-19), QL, telephoner-PCR, Respiratory Specim en No observation recorded. [employer] [facility]: [address] [place] [address] 07/11/2020 [facility] Pdf Report NOS No observation recorded. [facility]: [address] [place] [address], [place] 07/11/2020 SARS CoV 2 RNA (COVID-19), QL, telephoner-PCR, Respirat ory Specimen NOS Normal Sars-cov-2 negative negative Final [facility] Cov[facility]: [address] [place] [address], [place] 04/07/2020 SARS CoV 2 RNA (COVID-19), QL, telephoner-PCR, Respiratory Specim en No observation recorded. [employer]: [address] [place] [address] 02/08/2020 SARS CoV 2 RNA (COVID-19), QL, telephoner-PCR, Respiratory Specim en No observation recorded. [facility]: [address] [place] [address] 05/14/2021 Muscle Pain; Piriformis Syndrome; Inflammation of [...] Greater Trochanteric Pain Syndrome Kj Rodriguez MD: [id number] [address], Ph. 05/11/2021 Pre-surgery Testing; Viral Screening Kj Rodriguez MD: [address] [address], [place] [address], Ph. [phone] 05/07/2021 Inflammation of Sacroiliac Joint; Cervico-occipital Neuralgia; [...] Greater Trochanteric Pain Syndrome Jeanette Gross NP: [id number] [place] [address], Ph. 03/18/2021 Inflammation of Sacroiliac Joint; Cervico-occipital [...] Greater Trochanteric Pain Syndrome Jeanette Gross NP: [id number] [address], Ph. 03/02/2021 Muscle Pain; Inflammation of Sacroiliac [...] Greater Trochanteric Pain Syndrome Kj Rodriguez MD: [address] [address], Ph. 02/19/2021 Inflammation of Sacroiliac Joint; Cervico-occipital [...] Greater Trochanteric Pain Syndrome Kj Rodriguez MD: [address] [address], Ph. 02/16/2021 Pre-surgery Testing; Viral Screening Kj Rodriguez MD: [address] [address], Ph. [phone] 02/11/2021 Inflammation of Sacroiliac Joint; Cervico-occipital Neuralgia; [...] Greater Trochanteric Pain Syndrome Jeanette Gross NP: [address] [address], [facility] [place] [address], Ph. 01/14/2021 Lumbar Radiculopathy; Degeneration of Lumbar [...] Cervico-occipital Neuralgia; Muscle Pain Kj Rodriguez MD: [address] [address], Ph. 01/09/2021 Pre-surgery Testing; Viral Screening Kj Rodriguez MD: [address] [place] [address], Ph. [phone] 12/24/2020 Inflammation of Sacroiliac Joint; Cervico-occipital Neuralgia; [...] Greater Trochanteric Pain Syndrome Jeanette Gross NP: [address] [address], [facility] [place] [address], Ph. 12/03/2020 Cervical Spondylosis without Myelopathy; Degeneration [...] Intervertebral Disc; Lumbosacral Radiculopathy Kj Rodriguez MD: [address] [address], [place] [address], Ph. 12/01/2020 Pre-surgery Testing; Viral Screening Kj Rodriguez MD: [address] [address], Ph. [phone] 11/26/2020 Cervical Spondylosis without Myelopathy; Degeneration of [...] Intervertebral Disc; Lumbosacral Radiculopathy Kj Rodriguez MD: [address] [place] [address], Ph. 11/21/2020 Pre-surgery Testing; Viral Screening Kj Rodriguez MD: [address] [address], [place] [address], Ph. [phone] 11/10/2020 Pre-surgery Testing; Viral Screening Kj Rodriguez MD: [address] [address], [place] [address], Ph. [phone] 10/20/2020 Greater Trochanteric Pain Syndrome of Left [...] Intervertebral Disc; Lumbosacral Radiculopathy Kj Rodriguez MD: [address] [address], [facility] [place] [address], Ph. 10/15/2020 Pre-surgery Testing; Viral Screening Kj Rodriguez MD: [address] [address], Ph. [phone] 10/07/2020 Inflammation of Sacroiliac Joint; Cervico-occipital Neuralgia; [...] Greater Trochanteric Pain Syndrome Jeanette Gross NP: [address] [address], [facility] [place] [address], Ph. 09/02/2020 Muscle Pain; Greater Trochanteric Pain [...] Intervertebral Disc; Lumbosacral Radiculopathy Kj Rodriguez MD: [address] [address], [facility] [place] [address], Ph. 08/20/2020 Greater Trochanteric Pain Syndrome of [...] Intervertebral Disc; Lumbosacral Radiculopathy Kj Rodriguez MD: [address] [address], [facility] [place] [address], Ph. 08/15/2020 Pre-surgery Testing; Viral Screening Kj Rodriguez MD: [address] [address], [facility] [place] [address], Ph. [phone] 08/12/2020 Inflammation of Sacroiliac Joint; Cervico-occipital Neuralgia; [...] Greater Trochanteric Pain Syndrome Jeanette Gross NP: 18582 [facility], [facility] [place] [address], Ph. 07/16/2020 Lumbar Radiculopathy; Degeneration of Lumbar [...] Greater Trochanteric Pain Syndrome Kj Rodriguez MD: [address] [address], Ph. 07/11/2020 Pre-surgery Testing; Viral Screening Kj Rodriguez MD: [address] [address], Ph. [phone] 07/08/2020 Inflammation of Sacroiliac Joint; Cervico-occipital Neuralgia; [...] Greater Trochanteric Pain Syndrome Jeanette Gross NP: [address] [address], Ph. 06/11/2020 Inflammation of Sacroiliac Joint; Cervico-occipital [...] Radiculopathy; Greater Trochanteric Pain Syndrome Jeanette Gross [employer]: [address] [place] [address], Ph. 05/21/2020 Trochanteric Bursitis of Left Hip; [...] Intervertebral Disc; Lumbosacral Radiculopathy Kj Rodriguez MD: [address] [address], Ph. 05/15/2020 Inflammation of Sacroiliac Joint; Cervico-occipital [...] Greater Trochanteric Pain Syndrome Jeanette Gross NP: [address] [address], Ph. 04/28/2020 Myofascial Pain; Inflammation of Sacroiliac [...] Greater Trochanteric Pain Syndrome Kj Rodriguez MD: [address] [address], [facility] [place] [address], Ph. 04/23/2020 Inflammation of Sacroiliac Joint; Cervico-occipital [...] Greater Trochanteric Pain Syndrome Jeanette Gross NP: [address] [address], [place] [address], Ph. 04/10/2020 Lumbar Radiculopathy; Degeneration of Lumbar [...] Cervico-occipital Neuralgia; Muscle Pain Kj Rodriguez MD: [address] [address], [facility] [place] [address], Ph. 04/07/2020 Pre-surgery Testing; Viral Screening Kj Rodriguez MD: [address] [address], [facility] [place] [address], Ph. [phone] 02/27/2020 Inflammation of Sacroiliac Joint; Cervico-occipital Neuralgia; [...] Greater Trochanteric Pain Syndrome Jeanette Gross NP: [address] [address], Ph. 02/13/2020 Trochanteric Bursitis of Left Hip; [...] Intervertebral Disc; Lumbosacral Radiculopathy Kj Rodriguez MD: [address] [address], [facility] [place] [address], Ph. 02/08/2020 Pre-surgery Testing Kj Rodriguez MD: [address] [address], [facility] [place] [address], Ph. 01/11/2020 Inflammation of Sacroiliac Joint; Cervico-occipital [...] Radiculopathy; Greater Trochanteric Pain Syndrome Jeanette Gross [employer]: [address] [address], Ph. 12/31/2019 Inflammation of Sacroiliac Joint; Cervico-occipital [...] Radiculopathy; Greater Trochanteric Pain Syndrome Jeanette Gross [employer]: [address] [address], Ph. 12/03/2019 Lumbosacral Radiculopathy; Degeneration of Lumbar [...] Sacroiliac Joint; Cervico-occipital Neuralgia Kj Rodriguez MD: [address] [address], Ph. 11/14/2019 Inflammation of Sacroiliac Joint; Cervico-occipital [...] Intervertebral Disc; Lumbosacral Radiculopathy Jeanette Gross NP: [address] [address], Ph. 10/24/2019 Myofascial Pain; Inflammation of Sacroiliac [...] Intervertebral Disc; Lumbosacral Radiculopathy Kj Rodriguez MD: [address] [address], Ph. 10/02/2019 Myofascial Pain; Inflammation of Sacroiliac [...] Intervertebral Disc; Lumbosacral Radiculopathy Kj Rodriguez MD: [address] [address], Ph. 09/21/2019 Inflammation of Sacroiliac Joint; Cervico-occipital [...] Intervertebral Disc; Lumbosacral Radiculopathy Jeanette Gross NP: [address] [address], Ph. 09/05/2019 Myofascial Pain; Piriformis Syndrome; Inflammation [...] Intervertebral Disc; Lumbosacral Radiculopathy Kj Rodriguez MD: [address] [address], Ph. 08/14/2019 Inflammation of Sacroiliac Joint; Cervico-occipital [...] of Intervertebral Disc; Lumbosacral Radiculopathy Jeanette Gross [employer]: [address] [address], Ph. 07/25/2019 Lumbar Radiculopathy; Degeneration of Lumbar [...] Intervertebral Disc; Lumbosacral Radiculopathy Kj Rodriguez MD: [address] [address], [place] [address], Ph. 07/23/2019 Inflammation of Sacroiliac Joint; Cervico-occipital [...] Intervertebral Disc; Lumbosacral Radiculopathy Jeanette Gross NP: [address] [address], Ph. 06/28/2019 Inflammation of Sacroiliac Joint; Cervico-occipital [...] Intervertebral Disc; Lumbosacral Radiculopathy Kj Rodriguez MD: [address] [address], [facility] [place] [address], Ph. 06/15/2019 Inflammation of Sacroiliac Joint; Cervico-occipital [...] Intervertebral Disc; Lumbosacral Radiculopathy Jeanette Gross NP: 26321 [facility], [place] [address], Ph. 05/22/2019 Inflammation of Sacroiliac Joint; Cervico-occipital [...] Intervertebral Disc; Lumbosacral Radiculopathy Jeanette Gross NP: [address] [address], Ph. 04/26/2019 Inflammation of Sacroiliac Joint; Cervico-occipital [...] Intervertebral Disc; Lumbosacral Radiculopathy Kj Rodriguez MD: 82411 [facility] [address], [facility] [place] [address], Ph. 04/18/2019 Inflammation of Sacroiliac Joint; Cervico-occipital [...] Intervertebral Disc; Lumbosacral Radiculopathy Jeanette Gross NP: [address] [address], Ph. 03/22/2019 Inflammation of Sacroiliac Joint; Cervico-occipital [...] Intervertebral Disc; Lumbosacral Radiculopathy Kj Rodriguez MD: [address] [address], Ph. 03/20/2019 Inflammation of Sacroiliac Joint; Cervico-occipital [...] Intervertebral Disc; Lumbosacral Radiculopathy Kj Rodriguez MD: [address] [address], Ph. 03/12/2019 Inflammation of Sacroiliac Joint; Cervico-occipital [...] of Intervertebral Disc; Lumbosacral Radiculopathy Jeanette Gross [employer]: [address] [address], Ph. 02/21/2019 Cervical Radiculopathy; Displacement of Cervical [...] Intervertebral Disc; Lumbosacral Radiculopathy Kj Rodriguez MD: [address] [address], Ph. 02/20/2019 Inflammation of Sacroiliac Joint; Cervico-occipital [...] of Intervertebral Disc; Lumbosacral Radiculopathy Jeanette Gross [employer]: [address] [address], Ph. 02/09/2019 Lumbar Radiculopathy; Degeneration of Lumbar [...] Disc; Lumbosacral Radiculopathy Kj Rodriguez MD: [address] [place] [address], Ph. 12/18/2018 Inflammation of Sacroiliac Joint; Cervico-occipital [...] Intervertebral Disc; Lumbosacral Radiculopathy Jeanette Gross NP: [address], [place] [address], Ph. 10/27/2018 Lumbar Radiculopathy; Displacement of Lumbar [...] eneration of Intervertebral Disc Kj Rodriguez MD: [address], [place] [address], Ph. 10/17/2018 Inflammation of Sacroiliac Joint; Cervico-occipital [...] of Intervertebral Disc; Lumbosacral Radiculopathy Jeanette Gross [employer]: [address] [address], [place] [address], Ph. 09/04/2018 Inflammation of Sacroiliac Joint; Cervico-occipital [...] Intervertebral Disc; Lumbosacral Radiculopathy Kj Rodriguez MD: [address] [address], [place] [address], Ph. 09/01/2018 Inflammation of Sacroiliac Joint; Cervico-occipital [...] of Intervertebral Disc; Lumbosacral Radiculopathy Jeanette Gross [employer]: [address] [address], [place] [address], Ph. 08/11/2018 Cervical Radiculopathy; Degeneration of Cervical Intervertebral Disc; Displacement of Cervical Intervertebral Disc without Myelopathy; Cervical Spondylosis without Myelopathy; Cervico-occipital Neuralgia; Piriformis Syndrome; Myofascial Pain; Inflammation of Sacroiliac Joint; Degeneration of Intervertebral Disc; Lumbosacral Radiculopathy; Lumbosacral Spondylosis without Myelopathy; Displacement of Lumbar Intervertebral Disc without Myelopathy Kj Rodriguez MD: [address] [facility] [address], [address], [place] [address], Ph. Social History Tobacco Smoking Status Heavy Tobacco Smoker (1/2 pack per a day) Vaccine List None recorded. Plan of Care Reminders Provider Appointments None recorded. Lab None recorded. Referral None recorded. Procedures None recorded. Surgeries None recorded. Imaging None recorded. Vitals 05/07/2021 10:00AM FOLLOW-UP Height Blood Pressure 5 [...]
--- OUTSIDE RECORDS SUMMARY | 2021-07-11 14:57 | CCD ---
Author Organization Unknown Address [address] [place] [address] Phone [phone] Care Team Providers Care Knotter Hand Name Role Phone LOLY RAMIREZ 4 [phone] BIBI RODARTE AUTOMATIC CHIEF 3 [phone] Allergies Code Code System Name Reaction Severity Status Onset 20350331 RxNorm Claritin Active 11/13/2013 633776 RxNorm Cymbalta Active 11/13/2013 284414 RxNorm Lyrica Active 11/13/2013 2670 RxNorm Codeine Active 09/03/2015 833612 RxNorm Mobic Active 12/02/2016 Amitriptyline Hcl Active [...] paroxetine hydrochloride 10 mg tabs Completed 12/24/2020 [place] 1,000 mg capsule Take 1 capsule [...] R Information not available 09/26/2017 [facility]: X2 2016, 2017 Information not available 09/26/2017 Dorsal Column Stimulation Notes: TRIAL Information not available 09/26/1990 Ligation of Fallopian Tube Information n ot available Notes: tubal ligation in 1990, right bonilla d surgery - 03/201807/11/2018 Results Lab Results Date Name Specimen Result Interpretation Description Value Range Status Address 02/16/2021 [facility] P[facility] Report NOS No observation recorded. 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 [facility]: [address] [place] [address] 07/11/2020 [facility] Pdf Report NOS No observation recorded. 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 [facility] [employer] [facility]: [address] [place] [address] Past Encounters 05/11/2021 Pre-surgery Testing; Viral Screening Kj Rodriguez MD: [address]503 [facility], [address], [place] [address], Ph. [phone] 05/07/2021 Inflammation of Sacroiliac Joint; Cervico-occipital Neuralgia; [...] Greater Trochanteric Pain Syndrome Jeanette Gross NP: [id number] [address], Ph. 03/18/2021 Inflammation of Sacroiliac Joint; Cervico-occipital [...] Greater Trochanteric Pain Syndrome Jeanette Gross NP: [id number] [address], Ph. 03/02/2021 Muscle Pain; Inflammation of Sacroiliac [...] Greater Trochanteric Pain Syndrome Kj Rodriguez MD: [address] [address], Ph. 02/19/2021 Inflammation of Sacroiliac Joint; Cervico-occipital [...] Greater Trochanteric Pain Syndrome Kj Rodriguez MD: [address] [address], [facility] [place] [address], Ph. 02/16/2021 Pre-surgery Testing; Viral Screening Kj Rodriguez MD: [address] [address], [facility] [place] [address], Ph. [phone] 02/11/2021 Inflammation of Sacroiliac Joint; Cervico-occipital Neuralgia; [...] Greater Trochanteric Pain Syndrome Jeanette Gross NP: 14651 [facility], [facility] [place] [address], Ph. 01/14/2021 Lumbar Radiculopathy; Degeneration of Lumbar [...] Cervico-occipital Neuralgia; Muscle Pain Kj Rodriguez MD: [address] [address], [facility] [place] [address], Ph. 01/09/2021 Pre-surgery Testing; Viral Screening Kj Rodriguez MD: 45709 [facility], [facility] [place] [address], Ph. [phone] 12/24/2020 Inflammation of Sacroiliac Joint; Cervico-occipital Neuralgia; [...] Greater Trochanteric Pain Syndrome Jeanette Gross NP: 62387 [facility], [facility] [place] [address], Ph. 12/03/2020 Cervical Spondylosis without Myelopathy; Degeneration [...] Intervertebral Disc; Lumbosacral Radiculopathy Kj Rodriguez MD: 94245 [facility], [facility] [place] [address], Ph. 12/01/2020 Pre-surgery Testing; Viral Screening Kj Rodriguez MD: 54243 [facility], [facility] [place] [address], Ph. [phone] 11/26/2020 Cervical Spondylosis without Myelopathy; Degeneration of [...] Intervertebral Disc; Lumbosacral Radiculopathy Kj Rodriguez MD: [address] [address], [place] [address], Ph. 11/21/2020 Pre-surgery Testing; Viral Screening Kj Rodriguez MD: [address] [address], Ph. [phone] 11/10/2020 Pre-surgery Testing; Viral Screening Kj Rodriguez MD: [address] [address], Ph. [phone] 10/20/2020 Greater Trochanteric Pain Syndrome of Left [...] Intervertebral Disc; Lumbosacral Radiculopathy Kj Rodriguez MD: [address] [address], [place] [address], Ph. 10/15/2020 Pre-surgery Testing; Viral Screening Kj Rodriguez MD: [address] [address], Ph. [phone] 10/07/2020 Inflammation of Sacroiliac Joint; Cervico-occipital Neuralgia; [...] Lumbosacra l Radiculopathy; Greater Trochanteric Pain Syndrome Jeanettesheri MayesMARK medina: [address] [facility], [facility] [place] [address], Ph. 09/02/2020 Muscle Pain; Greater Trochanteric Pain [...] Intervertebral Disc; Lumbosacral Radiculopathy Kj Rodriguez MD: [address] [address], [facility] [place] [address], Ph. 08/20/2020 Greater Trochanteric Pain Syndrome of [...] Intervertebral Disc; Lumbosacral Radiculopathy Kj Rodriguez MD: [address] [address], [facility] [address], [place] [address], Ph. 08/15/2020 Pre-surgery Testing; Viral Screening Kj Rodriguez MD: [address] [address], Ph. [phone] 08/12/2020 Inflammation of Sacroiliac Joint; Cervico-occipital Neuralgia; [...] Greater Trochanteric Pain Syndrome Jeanette Gross NP: [address] [address], Ph. 07/16/2020 Lumbar Radiculopathy; Degeneration of Lumbar [...] Greater Trochanteric Pain Syndrome Kj Rodriguez MD: [address] [address], Ph. 07/11/2020 Pre-surgery Testing; Viral Screening Kj Rodriguez MD: [address] [address], Ph. [phone] 07/08/2020 Inflammation of Sacroiliac Joint; Cervico-occipital Neuralgia; [...] Radiculopathy; Greater Trochanteric Pain Syndrome Jeanette Gross AUTOMATIC CHIEF: [address] [address], Ph. 06/11/2020 Inflammation of Sacroiliac Joint; Cervico-occipital [...] Greater Trochanteric Pain Syndrome Jeanette Gross NP: [address] [address], Ph. 05/21/2020 Trochanteric Bursitis of Left Hip; [...] Pain; Degeneration of Intervertebral Disc; Lumbosacral Radiculopathy jK Rodriguez MD: [address] [address], [place] [address], Ph. 05/15/2020 Inflammation of Sacroiliac Joint; Cervico-occipital [...] Greater Trochanteric Pain Syndrome Jeanette Gross NP: [address] [address], Ph. 04/28/2020 Myofascial Pain; Inflammation of Sacroiliac [...] Greater Trochanteric Pain Syndrome Kj Rodriguez MD: [address] [address], Ph. 04/23/2020 Inflammation of Sacroiliac Joint; Cervico-occipital [...] Greater Trochanteric Pain Syndrome Jeanette Gross NP: [address] [address], [place] [address], Ph. 04/10/2020 Lumbar Radiculopathy; Degeneration of Lumbar [...] Cervico-occipital Neuralgia; Muscle Pain Kj Rodriguez MD: [address] [address], [facility] [place] [address], Ph. 04/07/2020 Pre-surgery Testing; Viral Screening Kj Rodriguez MD: [address] [address], [place] [address], Ph. [phone] 02/27/2020 Inflammation of Sacroiliac Joint; Cervico-occipital Neuralgia; [...] Greater Trochanteric Pain Syndrome Jeanette Gross NP: [address] [address], Ph. 02/13/2020 Trochanteric Bursitis of Left Hip; [...] Intervertebral Disc; Lumbosacral Radiculopathy Kj Rodriguez MD: 17676 [facility], [place] [address], Ph. 02/08/2020 Pre-surgery Testing Kj Rodriguez MD: [address] [address], [facility] [place] [address], Ph. 01/11/2020 Inflammation of Sacroiliac Joint; Cervico-occipital [...] Radiculopathy; Greater Trochanteric Pain Syndrome Jeanette Gross AUTOMATIC CHIEF: [address] [address], [facility] [place] [address], Ph. 12/31/2019 Inflammation of Sacroiliac Joint; Cervico-occipital [...] Radiculopathy; Greater Trochanteric Pain Syndrome Jeanette Gross AUTOMATIC CHIEF: [address]2862 [facility], [facility] [place] [address], Ph. 12/03/2019 Lumbosacral Radiculopathy; Degeneration of Lumbar [...] Sacroiliac Joint; Cervico-occipital Neuralgia Kj Rodriguez MD: [address] [address], Ph. 11/14/2019 Inflammation of Sacroiliac Joint; Cervico-occipital [...] Intervertebral Disc; Lumbosacral Radiculopathy Jeanette Gross NP: [address] [address], Ph. 10/24/2019 Myofascial Pain; Inflammation of Sacroiliac [...] Intervertebral Disc; Lumbosacral Radiculopathy Kj Rodriguez MD: [address] [address], Ph. 10/02/2019 Myofascial Pain; Inflammation of Sacroiliac [...] Intervertebral Disc; Lumbosacral Radiculopathy Kj Rodriguez MD: [address] [address], Ph. 09/21/2019 Inflammation of Sacroiliac Joint; Cervico-occipital [...] Intervertebral Disc; Lumbosacral Radiculopathy Jeanette Gross NP: [address] [address], Ph. 09/05/2019 Myofascial Pain; Piriformis Syndrome; Inflammation [...] Intervertebral Disc; Lumbosacral Radiculopathy Kj Rodriguez MD: [address] [address], Ph. 08/14/2019 Inflammation of Sacroiliac Joint; Cervico-occipital [...] of Intervertebral Disc; Lumbosacral Radiculopathy Jeanette Gross AUTOMATIC CHIEF: [address] [address], Ph. 07/25/2019 Lumbar Radiculopathy; Degeneration of Lumbar [...] Intervertebral Disc; Lumbosacral Radiculopathy Kj Rodriguez MD: [address] [address], Ph. 07/23/2019 Inflammation of Sacroiliac Joint; Cervico-occipital [...] Intervertebral Disc; Lumbosacral Radiculopathy Jeanette Gross NP: [address] [address], [place] [address], Ph. 06/28/2019 Inflammation of Sacroiliac Joint; Cervico-occipital [...] Intervertebral Disc; Lumbosacral Radiculopathy Kj Rodriguez MD: [address] [address], Ph. 06/15/2019 Inflammation of Sacroiliac Joint; Cervico-occipital [...] Intervertebral Disc; Lumbosacral Radiculopathy Jeanette Gross NP: [address] [address], Ph. 05/22/2019 Inflammation of Sacroiliac Joint; Cervico-occipital [...] Intervertebral Disc; Lumbosacral Radiculopathy Jeanette Gross NP: [address] [address], Ph. 04/26/2019 Inflammation of Sacroiliac Joint; Cervico-occipital [...] Intervertebral Disc; Lumbosacral Radiculopathy Kj Rodriguez MD: [address] [address], [place] [address], Ph. 04/18/2019 Inflammation of Sacroiliac Joint; Cervico-occipital [...] Intervertebral Disc; Lumbosacral Radiculopathy Jeanette Gross NP: [address] [address], [place] [address], Ph. 03/22/2019 Inflammation of Sacroiliac Joint; Cervico-occipital [...] Intervertebral Disc; Lumbosacral Radiculopathy Kj Rodriguez MD: [address] [address], [place] [address], Ph. 03/20/2019 Inflammation of Sacroiliac Joint; Cervico-occipital [...] Intervertebral Disc; Lumbosacral Radiculopathy Kj Rodriguez MD: [address] [address], Ph. 03/12/2019 Inflammation of Sacroiliac Joint; Cervico-occipital [...] Intervertebral Disc; Lumbosacral Radiculopathy Jeanette Gross NP: 52574 [facility], [place] [address], Ph. 02/21/2019 Cervical Radiculopathy; Displacement of Cervical [...] Intervertebral Disc; Lumbosacral Radiculopathy Kj Rodriguez MD: 17555 [facility], [place] [address], Ph. 02/20/2019 Inflammation of Sacroiliac Joint; Cervico-occipital [...] of Intervertebral Disc; Lumbosacral Radiculopathy Jeanette Gross AUTOMATIC CHIEF: [address] [address], Ph. 02/09/2019 Lumbar Radiculopathy; Degeneration of Lumbar [...] Intervertebral Disc; Lumbosacral Radiculopathy Kj Rodriguez MD: [facility] [place] [address], Ph. 12/18/2018 Inflammation of Sacroiliac Joint; Cervico-occipital [...] of Intervertebral Disc; Lumbosacral Radiculopathy Jeanette Gross AUTOMATIC CHIEF: [address] [address], Ph. 10/27/2018 Lumbar Radiculopathy; Displacement of Lumbar [...] eneration of Intervertebral Disc Kj Rodriguez MD: [address] [address], [place] [address], Ph. 10/17/2018 Inflammation of Sacroiliac Joint; Cervico-occipital [...] Intervertebral Disc; Lumbosacral Radiculopathy Jeanette Gross NP: [address] [address], [place] [address], Ph. 09/04/2018 Inflammation of Sacroiliac Joint; Cervico-occipital [...] Degeneration of Intervertebral Disc; Lumbosacral Radiculopathy Kj Rodrgiuez MD: 11989 [facility], [facility] [place] [address], Ph. 09/01/2018 Inflammation of Sacroiliac Joint; Cervico-occipital [...] Intervertebral Disc; Lumbosacral Radiculopathy Jeanette Gross NP: [address] [address], [place] [address], Ph. 08/11/2018 Cervical Radiculopathy; Degeneration of Cervical Intervertebral Disc; Displacement of Cervical Intervertebral Disc without Myelopathy; Cervical Spondylosis without Myelopathy; Cervico-occipital Neuralgia; Piriformis Syndrome; Myofascial Pain; Inflammation of Sacroiliac Joint; Degeneration of Intervertebral Disc; Lumbosacral Radiculopathy; Lumbosacral Spondylosis without Myelopathy; Displacement of Lumbar Intervertebral Disc without Myelopathy Kj Rodriguez MD: [address] [address], [place] [address], Ph. Social History Tobacco Smoking Status Heavy [...]
--- OUTSIDE RECORDS SUMMARY | 2021-07-11 14:57 | CCD ---
Author Organization Unknown Address [address] [place] [address] Phone [phone] Care Team Providers Care Pattern Mechanic Name Role Phone LOLY RAMIREZ 4 [phone] BIBI RODARTE PUBLIC HEALTH POLICY ANALYST 3 [phone] Allergies Code Code System Name Reaction Severity Status Onset 20350331 RxNorm Claritin Active 11/13/2013 113354 RxNorm Cymbalta Active 11/13/2013 374175 RxNorm Lyrica Active 11/13/2013 2670 RxNorm Codeine Active 09/03/2015 006418 RxNorm Mobic Active 12/02/2016 Amitriptyline Hcl Active [...] Completed 12/25/19 21 ibuprofen 800 mg tablet TAKE ONE TABLET BY MOUTH THREE TIMES A DAY NEEDED Active Not available ketotifen 0.025 % (0.035 %) eye drops [...] tablet Completed 03/2018 methocarbamol 750 mg tablet TAKE ONE TABLET BY MOUTH THREE TIMES A DAY NEEDED Active Not available methylprednisolone 4 mg tablets [...] paroxetine hydrochloride 10 mg tabs Completed 12/24/2020 [place] Oil 1,000 mg capsule Take 1 capsule [...] R Information not available 09/26/2017 Admission to [facility] Surgery De partment Notes: X2 2016, 2017 Information not available 09/26/2017 Dorsal Column Stimulation Notes: TRIAL Information not available 09/26/1990 Ligation of Fallopian Tube Information n ot available Notes: tubal ligation in 1990, right bonilla d surgery - 03/201807/11/2018 Results Lab Results Date Name Specimen Result Interpretation Description Value Range Status Address 02/16/2021 [facility] Pdf Report NOS No observation recorded. [facility]: [address] [facility] [place] 02/16/2021 SARS CoV 2 RNA (COVID-19), QL, central office trouble shooter-PCR, Respiratory Sp ecimen Other No observation recorded. [facility]: [address] [facility] [place] 02/16/2021 SARS CoV 2 RNA (COVID-19), QL, central office trouble shooter-PCR, Respirat ory Specimen NOS Normal Sars-cov-2 negative negative Final [facility]: [address] [facility] [place] 12/01/2020 [facility] Pdf Report NOS No observation recorded. [facility]: [address] [facility] [place] 12/01/2020 SARS CoV 2 RNA (COVID-19), QL, central office trouble shooter-PCR, Respirat ory Specimen NOS Normal Sars-cov-2 negative negative Final [facility]: [address] [facility] [place] 11/21/2020 [facility] Pdf Report NOS No observation recorded. [facility]: [address] [facility] [place] 11/21/2020 SARS CoV 2 RNA (COVID-19), QL, central office trouble shooter-PCR, Respirat ory Specimen NOS Normal Sars-cov-2 negative negative Final [facility]: [address] [facility] [place] 11/10/2020 [facility] Pdf Report NOS No observation recorded. [facility]: [address] [facility] [place] 11/10/2020 SARS CoV 2 RNA (COVID-19), QL, central office trouble shooter-PCR, Respirat ory Specimen NOS Normal Sars-cov-2 negative negative Final [facility]: [address] [facility] [place] 10/15/2020 [facility] Pdf Report NOS No observation recorded. [facility]: [address] [facility] [place] 10/15/2020 SARS CoV 2 RNA (COVID-19), QL, central office trouble shooter-PCR, Respirat ory Specimen NOS Normal Sars-cov-2 negative negative Final [facility]: [address] [facility] [place] 08/15/2020 [facility] Pdf Report NOS No observation recorded. [facility]: [address] [facility] [place] 08/15/2020 SARS CoV 2 RNA (COVID-19), QL, central office trouble shooter-PCR, Respirat ory Specimen NOS Normal Sars-cov-2 negative negative Final [facility]: [address] [facility] [place] 07/11/2020 SARS CoV 2 RNA (COVID-19), QL, central office trouble shooter-PCR, Respiratory Specim en No observation recorded. [facility]: [address] [place] [address] 07/11/2020 [facility] Pdf Report NOS No observation recorded. [facility]: [address] [facility] [place] 07/11/2020 SARS CoV 2 RNA (COVID-19), QL, central office trouble shooter-PCR, Respirat ory Specimen NOS Normal Sars-cov-2 negative negative Final [facility]: [address] [facility] [place] 04/07/2020 SARS CoV 2 RNA (COVID-19), QL, central office trouble shooter-PCR, Respiratory Specim en No observation recorded. [employer] [facility]: [address] [place] [address] 02/08/2020 SARS CoV 2 RNA (COVID-19), QL, central office trouble shooter-PCR, Respiratory Specim en No observation recorded. [employer]: [address] [place] [address] 05/07/2021 Inflammation of Sacroiliac Joint; Cervico-occipital Neuralgia; [...] Radiculopathy; Greater Trochanteric Pain Syndrome Jeanette Gross PUBLIC HEALTH POLICY ANALYST: [address] [address], Ph. 03/18/2021 Inflammation of Sacroiliac Joint; Cervico-occipital [...] Radiculopathy; Greater Trochanteric Pain Syndrome Jeanette Gross PUBLIC HEALTH POLICY ANALYST: [address] [address], Ph. 03/02/2021 Muscle Pain; Inflammation of Sacroiliac [...] Greater Trochanteric Pain Syndrome Kj Rodriguez MD: [id number] [address], Ph. 02/19/2021 Inflammation of Sacroiliac Joint; Cervico-occipital [...] Greater Trochanteric Pain Syndrome Kj Rodriguez MD: [address] [address], Ph. 02/16/2021 Pre-surgery Testing; Viral Screening Kj Rodriguez MD: [address] [address], Ph. [phone] 02/11/2021 Inflammation of Sacroiliac Joint; Cervico-occipital Neuralgia; [...] Greater Trochanteric Pain Syndrome Jeanette Gross NP: [id number] [address], Ph. 01/14/2021 Lumbar Radiculopathy; Degeneration of Lumbar [...] Cervico-occipital Neuralgia; Muscle Pain Kj Rodriguez MD: [address] [address], Ph. 01/09/2021 Pre-surgery Testing; Viral Screening Kj Rodriguez MD: [address] [address], Ph. [phone] 12/24/2020 Inflammation of Sacroiliac Joint; Cervico-occipital Neuralgia; [...] Greater Trochanteric Pain Syndrome Jeanette Gross NP: [id number] [place] [address], Ph. 12/03/2020 Cervical Spondylosis without Myelopathy; Degeneration [...] Intervertebral Disc; Lumbosacral Radiculopathy Kj Rodriguez MD: [address] [place] [address], Ph. 12/01/2020 Pre-surgery Testing; Viral Screening Kj Rodriguez MD: [address] [address], [facility] [place] [address], Ph. [phone] 11/26/2020 Cervical Spondylosis without Myelopathy; Degeneration of [...] Intervertebral Disc; Lumbosacral Radiculopathy Kj Rodriguez MD: [address] [address], [facility] [place] [address], Ph. 11/21/2020 Pre-surgery Testing; Viral Screening Kj Rodriguez MD: [address] [address], [facility] A, [place] [address], Ph. [phone] 11/10/2020 Pre-surgery Testing; Viral Screening Kj Rodriguez MD: [address] [address], [facility] [place] [address], Ph. [phone] 10/20/2020 Greater Trochanteric Pain Syndrome of Left [...] Intervertebral Disc; Lumbosacral Radiculopathy Kj Rodriguez MD: [address] [address], [facility] [place] [address], Ph. 10/15/2020 Pre-surgery Testing; Viral Screening Kj Rodriguez MD: [address] [address], [facility] [place] [address], Ph. [phone] 10/07/2020 Inflammation of Sacroiliac Joint; Cervico-occipital Neuralgia; [...] l Radiculopathy; Greater Trochanteric Pain Syndrome Jeanette Loretomitch SugeyMARK [place]ina: [address], [place] [address], Ph. 09/02/2020 Muscle Pain; Greater Trochanteric Pain [...] Intervertebral Disc; Lumbosacral Radiculopathy Kj Rodriguez MD: 51564 [facility] [address], [place] [address], Ph. 08/20/2020 Greater Trochanteric Pain Syndrome of [...] Intervertebral Disc; Lumbosacral Radiculopathy Kj Rodriguez MD: 69052 [facility] [address], [facility] [place] [address], Ph. 08/15/2020 Pre-surgery Testing; Viral Screening Kj Rodriguez MD: 72226 [facility] [address], [facility] [place] [address], Ph. [phone] 08/12/2020 Inflammation of Sacroiliac Joint; Cervico-occipital Neuralgia; [...] Greater Trochanteric Pain Syndrome Jeanette Gross NP: [address] [address], Ph. 07/16/2020 Lumbar Radiculopathy; Degeneration of Lumbar [...] Greater Trochanteric Pain Syndrome Kj Rodriguez MD: [address] [address], [place] [address], Ph. 07/11/2020 Pre-surgery Testing; Viral Screening Kj Rodriguez MD: [address] [address], Ph. [phone] 07/08/2020 Inflammation of Sacroiliac Joint; Cervico-occipital Neuralgia; [...] Greater Trochanteric Pain Syndrome Jeanette Gross NP: [address] [address], Ph. 06/11/2020 Inflammation of Sacroiliac Joint; Cervico-occipital [...] Greater Trochanteric Pain Syndrome Jeanette Gross NP: [address] [address], Ph. 05/21/2020 Trochanteric Bursitis of Left Hip; [...] Intervertebral Disc; Lumbosacral Radiculopathy Kj Rodriguez MD: [address] [address], Ph. 05/15/2020 Inflammation of Sacroiliac Joint; Cervico-occipital [...] Radiculopathy; Greater Trochanteric Pain Syndrome Jeanette Gross PUBLIC HEALTH POLICY ANALYST: [address] [address], Ph. 04/28/2020 Myofascial Pain; Inflammation of Sacroiliac [...] Greater Trochanteric Pain Syndrome Kj Rodriguez MD: [address] [address], Ph. 04/23/2020 Inflammation of Sacroiliac Joint; Cervico-occipital [...] Greater Trochanteric Pain Syndrome Jeanette Gross NP: [address] [address], Ph. 04/10/2020 Lumbar Radiculopathy; Degeneration of Lumbar [...] Cervico-occipital Neuralgia; Muscle Pain Kj Rodriguez MD: [address] [address], [facility] [place] [address], Ph. 04/07/2020 Pre-surgery Testing; Viral Screening Kj Rodriguez MD: [address] [address], [place] [address], Ph. [phone] 02/27/2020 Inflammation of Sacroiliac Joint; Cervico-occipital Neuralgia; [...] Greater Trochanteric Pain Syndrome Jeanette Gross NP: [address] [address], Ph. 02/13/2020 Trochanteric Bursitis of Left Hip; [...] Intervertebral Disc; Lumbosacral Radiculopathy Kj Rodriguez MD: 64189 [facility] [address], [place] [address], Ph. 02/08/2020 Pre-surgery Testing Kj Rodriguez MD: [address] [address], [facility] [place] [address], Ph. 01/11/2020 Inflammation of Sacroiliac Joint; Cervico-occipital [...] Greater Trochanteric Pain Syndrome Jeanette Gross NP: [address] [address], [facility] [place] [address], Ph. 12/31/2019 Inflammation of Sacroiliac Joint; Cervico-occipital [...] Radiculopathy; Greater Trochanteric Pain Syndrome Jeanette Gross PUBLIC HEALTH POLICY ANALYST: 606[address] [facility] [address], [facility] [place] [address], Ph. 12/03/2019 Lumbosacral Radiculopathy; Degeneration of Lumbar [...] Sacroiliac Joint; Cervico-occipital Neuralgia Kj Rodriguez MD: [address] [address], Ph. 11/14/2019 Inflammation of Sacroiliac Joint; Cervico-occipital [...] Intervertebral Disc; Lumbosacral Radiculopathy Jeanette Gross NP: [address] [address], Ph. 10/24/2019 Myofascial Pain; Inflammation of Sacroiliac [...] Intervertebral Disc; Lumbosacral Radiculopathy Kj Rodriguez MD: [address] [address], Ph. 10/02/2019 Myofascial Pain; Inflammation of Sacroiliac [...] Intervertebral Disc; Lumbosacral Radiculopathy Kj Rodriguez MD: [address] [address], Ph. 09/21/2019 Inflammation of Sacroiliac Joint; Cervico-occipital [...] Intervertebral Disc; Lumbosacral Radiculopathy Jeanette Gross NP: [address] [address], Ph. 09/05/2019 Myofascial Pain; Piriformis Syndrome; Inflammation [...] Intervertebral Disc; Lumbosacral Radiculopathy Kj Rodriguez MD: [address] [address], Ph. 08/14/2019 Inflammation of Sacroiliac Joint; Cervico-occipital [...] of Intervertebral Disc; Lumbosacral Radiculopathy Jeanette Gross PUBLIC HEALTH POLICY ANALYST: [address] [address], [place] [address], Ph. 07/25/2019 Lumbar Radiculopathy; Degeneration of Lumbar [...] Intervertebral Disc; Lumbosacral Radiculopathy Kj Rodriguez MD: [address] [address], Ph. 07/23/2019 Inflammation of Sacroiliac Joint; Cervico-occipital [...] Intervertebral Disc; Lumbosacral Radiculopathy Jeanette Gross NP: [address] [address], [place] [address], Ph. 06/28/2019 Inflammation of Sacroiliac Joint; Cervico-occipital [...] Intervertebral Disc; Lumbosacral Radiculopathy Kj Rodriguez MD: [address] [address], Ph. 06/15/2019 Inflammation of Sacroiliac Joint; Cervico-occipital [...] Intervertebral Disc; Lumbosacral Radiculopathy Jeanette Gross NP: [address] [address], Ph. 05/22/2019 Inflammation of Sacroiliac Joint; Cervico-occipital [...] of Intervertebral Disc; Lumbosacral Radiculopathy Jeanette Gross PUBLIC HEALTH POLICY ANALYST: [address] [address], Ph. 04/26/2019 Inflammation of Sacroiliac Joint; Cervico-occipital [...] Intervertebral Disc; Lumbosacral Radiculopathy Kj Rodriguez MD: [address] [address], Ph. 04/18/2019 Inflammation of Sacroiliac Joint; Cervico-occipital [...] Intervertebral Disc; Lumbosacral Radiculopathy Jeanette Gross NP: [address] [address], Ph. 03/22/2019 Inflammation of Sacroiliac Joint; Cervico-occipital [...] Intervertebral Disc; Lumbosacral Radiculopathy Kj Rodriguez MD: [address] [address], [place] [address], Ph. 03/20/2019 Inflammation of Sacroiliac Joint; Cervico-occipital [...] Intervertebral Disc; Lumbosacral Radiculopathy Kj Rodriguez MD: [address] [address], Ph. 03/12/2019 Inflammation of Sacroiliac Joint; Cervico-occipital [...] Intervertebral Disc; Lumbosacral Radiculopathy Jeanette Gross NP: [address] [address], Ph. 02/21/2019 Cervical Radiculopathy; Displacement of Cervical [...] Intervertebral Disc; Lumbosacral Radiculopathy Kj Rodriguez MD: [address] [address], Ph. 02/20/2019 Inflammation of Sacroiliac Joint; Cervico-occipital [...] of Intervertebral Disc; Lumbosacral Radiculopathy Jeanette Gross PUBLIC HEALTH POLICY ANALYST: [address] [address], Ph. 02/09/2019 Lumbar Radiculopathy; Degeneration of Lumbar [...] Intervertebral Disc; Lumbosacral Radiculopathy Kj Rodriguez MD: [address] [place] [address], Ph. 12/18/2018 Inflammation of Sacroiliac Joint; Cervico-occipital [...] of Intervertebral Disc; Lumbosacral Radiculopathy Jeanette Gross PUBLIC HEALTH POLICY ANALYST: [address] [address], [place] [address], Ph. 10/27/2018 Lumbar Radiculopathy; Displacement of Lumbar [...] eneration of Intervertebral Disc Kj Rodriguez MD: [address] [address], Ph. 10/17/2018 Inflammation of Sacroiliac Joint; Cervico-occipital [...] Intervertebral Disc; Lumbosacral Radiculopathy Jeanette Gross NP: [address] [address], Ph. 09/04/2018 Inflammation of Sacroiliac Joint; Cervico-occipital [...] Intervertebral Disc; Lumbosacral Radiculopathy Kj Rodriguez MD: [address] [address], [place] [address], Ph. 09/01/2018 Inflammation of Sacroiliac Joint; Cervico-occipital [...] Intervertebral Disc; Lumbosacral Radiculopathy Jeanette Gross NP: [address], [facility] [place] [address], Ph. 08/11/2018 Cervical Radiculopathy; Degeneration of Cervical Intervertebral Disc; Displacement of Cervical Intervertebral Disc without Myelopathy; Cervical Spondylosis without Myelopathy; Cervico-occipital Neuralgia; Piriformis Syndrome; Myofascial Pain; Inflammation of Sacroiliac Joint; Degeneration of Intervertebral Disc; Lumbosacral Radiculopathy; Lumbosacral Spondylosis without Myelopathy; Displacement of Lumbar Intervertebral Disc without Myelopathy Kj Rodriguez MD: [address], [facility] [place] [address], Ph. Social History Tobacco Smoking Status Heavy [...]
--- OUTSIDE RECORDS SUMMARY | 2021-07-11 14:57 | CCD ---
Author Author [facility] Organization [facility] Address Unknown Phone Unavailable Care Team Providers Care Multimedia Teacher Name Role Phone Dasha Winchester Unavailable PROBLEMS Type Condition ICD9-CM Code TUM94-PS Code Onset Dates Condition S tatus W/U Status Risk SNOMED Code Notes Problem Family history of diabetes mellitus in father Z83. 3 Active confirmed 885404828 Problem Altered bowel habits R19.4 Active confirmed 09167911 Problem Hx of carpal tunnel syndrome Z86.69 Active confirme d 015764995 Problem Recurrent sinus infections J32.9 Active confirmed 367039067 Problem Major depressive disorder, recurrent episode, unspecified F33.9 Active confirmed 475349357 Problem Anxiety F41.9 Active confirmed 25749622 Problem Headache R51 Active confirmed 51429075 Problem Insomnia G47.00 Active confirmed 645116570 Problem Back pain M54.9 Active confirmed 158687177 Problem BMI 36.0-36.9,adult Z68.36 Active confirmed 310905425 Problem Hypercholesteremia E78.0 Active confirmed 1 9140827 Problem Symptomatic menopausal or female climacteric states N95.1 Active confirmed 98474538 Problem Menorrhagia with regular cycle N92.0 Active confir med 891699975 Problem Reflux esophagitis K21.0 Active confirmed 2 51758081 Problem Left anterior shoulder pain M25.512 Active confirme d 14636550 Problem Left hip pain M25.552 Active confirmed 14396 002 Problem Hot flashes due to menopause N95.1 Active confirme d 878431121 Problem Seasonal allergies J30.2 Active confirmed 3 95759632 Problem Gastroesophageal reflux disease without esophagitis K21.9 Active confirmed 794813729 Problem BMI 37.0-37.9, adult Z68.37 Active confirmed 938851603 Problem Tobacco abuse Z72.0 Active confirmed 442577 000 Problem Uncomplicated asthma, unspecified asthma severity J45.909 Active confirmed 834313086 Problem 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.817 Active confirmed 43462445 Problem Continuous dependence on cigarette smoking F17.210 Active confirmed 892295843663299 Problem Herniated nucleus pulposus of lumbosacral region M 51.27 Active confirmed 09608345 ALLERGIES Allergen (clinical drug ingredient) Drug/Non Drug Allergy do cumented on EMR Reaction Allergy Type Onset Date Status Effexor dizzt napping Drug Allergy Active Benadryl makes her itch Drug Allergy Active loratadine Claritin(ND Code:[address]-47) Lip sweling bety d time breathingt Drug Allergy Active codeine Codeine Sulfate(NDC Code:[address]-60) GI Upset Drug Al lergy Active Latex (for allergy use only) Anaphylaxis Drug Allergy Active montelukast Singulair(ND Code:[address]-13) itching, facia l swelling Drug Allergy Active pregabalin Lyrica(NDC Code:[address]-90) stomach pains Drug Allergy Active azithromycin Zithromax Z-Edgar(NDC Code:[address]-39) mouth sw elling Drug Allergy Active duloxetine Cymbalta(NDC Code:[address]-29) period for 3 mo [facility] straight Drug Allergy Active ENCOUNTERS from 1970 to 2021-04-21 Encounter Location Date Provider Diagnosis [place] [address] [facility] [phone] [place] [address] Mar, Dasha Servage Well adult exam Z00.00 ; Unc omplicated asthma, unspecified asthma severity J45.909 ; Altered bowel habits R19.4 ; Seasonal allergies J30.2 ; Hot flashes due to menopause N95.1 ; Anxiety F41.9 ; Herniated nucleus pulposus of lumbosacral region M51.27 ; Tobacco abuse Z72.0 ; Gastroesophageal reflux disease without esophagitis K21.9 ; Family history of diabetes mellitus Z83.3 ; Diarrhea, unspecified type R19.7 ; Right ear pain H92.01 ; Screening, lipid Z13.220 and Screening for thyroid disorder Z13.29 IMMUNIZATIONS Vaccine Route Administration Date Status COVID-19 dose #2 given elsewhere Unspecified Unknown February 03, 2021 Administered COVID-19 dose #1 given elsewhere Unspecified Unknown Dec Administered Influenza 18 yrs & older Flublok IM Intramuscular Oct 23, 2020 Administered Influenza 6mo & up Fluzone IM Intramuscular Nov 09, 2018 Admi nistered Influenza 6mo & up Fluzone Unknown Jul 24, 2016 Admin istered SOCIAL HISTORY Tobacco Use: Social History Observation Description Date Details (start date - stop date) Current Smoker Sex Assigned At : Social History Observation Description Sex Assigned At Unknown Audit Question Answer Notes Total Score: 0 Interpretation: Alcohol Education 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 Yes LMP: 10/2018 Have you ever had an STD? No Prevention Strategies discussed: Other with Men only Use protection? No Drug and Alcohol Question Answer Notes Total Score: 0 Interpretation: No problems reported Alcohol Screening: Question Answer Notes Did you have a drink containing alcohol in the past year? No Points 0 Interpretation Negative BMI Care Goal Follow-Up Question Answer Notes Above Normal BMI Follow-Up Dietary management educatio n, guidance, and counseling Tobacco Use: Question Answer Notes Are you a: current smoker Smoking Cessation Information Given 10/23/2020 Patient counseled on the dangers of tobacco use and urged to quit: 10/23/2020 How many cigarettes a day do you smoke? 6-10 Are you interested in quitting? Not ready to quit Counseled the patient on smoking effects, education provided 10/23/2020 REASON FOR REFERRAL No Information VITAL SIGNS Weight 235.6 lbs Mar, Height 5'3" in Mar, BMI 41.73 kg/m2 Mar, Heart Rate 78 /min Mar, Respiratory Rate 18 /min Mar, Temperature 97.2 degrees Fahrenheit Mar, Oximetry 97% Mar, Blood pressure systolic 142 mm Hg Mar, Blood pressure diastolic 78 mm Hg Mar, MEDICATIONS Medication SIG (Take, Route, Frequency, Duration) Notes Start Da te End Date Status Ibuprofen 800 MG 1 tablet with food or milk as needed Ora lly Three times a day Active Latanoprost 0.005 % 1 dropeach eye Ophthalmic before bedtime Active Saline Nasal [place] 0.65 % 2 sprays in each nostril as needed Nasally every 2 hrs for 30 day(s) Feb, Active Fluconazole 150 MG 1 tablet Orally 1 today and repeat x 1 i n 10 days for 2 days Mar, Active ProAir HFA 108 (90 Base) MCG/ACT 2 puffs as needed for cough Inhalation every 4 hrs for 30 days Active traMADol HCl 50 MG 1 tablet Orally four times daily as needed Active Omeprazole 40 MG 1 capsule 30 minutes before morning meal Orally Once a day for 30 day(s) Active Methocarbamol 750 MG 1 tablet Orally three times daily as needed Not-Taking Amoxicillin-Pot Clavulanate 500-125 MG 1 tablet Orally bid for 1 0 days Mar, Active Baclofen 10 MG 1 tab Orally three times daily Mar, Active Artificial Tears 1.4 % INSTILL ONE DROP FOUR TIMES A DAY IN EACH EYE AND OR NEEDED DIRECTED Ophthalmic for 31 Not-Taking Gabapentin 800 MG 1 tablet Orally Three times a day Active PROCEDURES No Information RESULTS No Results REASON FOR VISIT AWE MEDICAL (GENERAL) HISTORY Type Description Date Medical History myofascial pain syndrome Medical History chronic migraines per patient Medical History carpal tunnel per patient Medical History tetanus booster 2008 Medical History tobacco abuse smoked for 26 years 1 pack per day Medical History 4 mm hypodense focus in the left lobe of the liver too small to accurately characterize but likely represents a small cyst per CT scan 04/06/2016 Medical History 10/05/16[facility] Medical History 10/11/16 positive Methacholine Challenge Medical History 12/09/16 Colonoscopy-negative Medical History 12/09/16 EDG-Small Hiatal hernia Medical History Glaucoma Surgical History Tubal ligation 1990 Surgical History LEEP procedure 01/24/2017 Hospitalization History [facility] Stomach Problems 05/15/10 Hospitalization History [facility] stomach problems 04/14/12 Goals Section No Information Health Concerns No Information MEDICAL EQUIPMENT No Information MENTAL STATUS No Information FUNCTIONAL STATUS No Information ASSESSMENTS Encounter Date Diagnosis Assessment Notes Treatment Notes Treatm ent Clinical Notes Mar, Well adult exam (ICD-10 - Z00.00) age appropriate anticipatory guidance given, per USPSTF recommendations; immunizations up to date. discussed plans for implementing improvement in identified areas Mar, Uncomplicated asthma, unspec ified asthma severity (ICD-10 - J45.909) positive methacholine challenge with PFT's in the past, no longer using long acting inhaler states she does not need it, only uses prn rescue inhaler Mar, Altered bowel habits (ICD-10 - R19.4) Leigh has had issues with her bowels since she lived in [place], colonoscopy completed, negative, states her bowels have improved. Mar, Seasonal allergies (ICD-10 - J30.2) states they work when she uses them. Mar, Hot flashes due to menopause (ICD-10 - N95.1) going to try over the counter vitamins Mar, Anxiety (ICD-10 - F41.9) has seen FRANSISCA Ledbetter in the past. was suppose to be following with the community clinic, pt has anxiety issues as well as depressive issues. denies suicidal thoughts Mar, Herniated nucleus pulposus of lumbosacra l region (ICD-10 - M51.27) following with [facility] [place] supposed to get spinal cord stimulator per notes. from last visit, but is now following with Dr. Rodriguez at [facility]. injections doing well on gabapentin and tramadol Mar, Tobacco abuse (ICD-10 - Z72.0) does not plan on quitting at the current time. Mar, Gastroesophageal reflux dise ase without esophagitis (ICD-10 - K21.9) Controlled with omeprazole Mar, Family history of diabetes mellitus (ICD-10 - Z8 3.3) Mar, Diarrhea, unspecified type (ICD-10 - R19.7) Tried Imodium, and Pepto helped somewhat Going camping tonight, unable to complete stool study, when she returns on Tuesday of next week if she continues to have diarrheal issues will contact the o ffice and we will performed GI panel Mar, Right ear pain (ICD-10 - H92.01) Will treat with antibiotic and Diflucan Mar, Screening, lipid (ICD-10 - Z13.220) Mar, Screening for thyroid disorder (ICD-10 - Z13.29) PLAN OF TREATMENT Medication Medication Name Sig Start Date Stop Date Omeprazole 40 MG 1 capsule 30 minutes before morning meal Orally Once a day for 30 day(s) ProAir HFA 108 (90 Base) MCG/ACT 2 puffs as needed for cough Inhalation every 4 hrs for 30 days Amoxicillin-Pot Clavulanate 500-125 MG 1 tablet Orally bid f or 10 days Mar, Fluconazole 150 MG 1 tablet Orally 1 today and repeat x 1 i n 10 days for 2 days Mar, Treatment Notes Assessment Notes Clinical Notes Well adult exam age appropriate anti cipatory guidance given, per USPSTF recommendations; immunizations up to date. discussed plans for implementing improvement in identified areas Uncomplicated asthma, unspecified asthma severity positive methacholine challenge with PFT's in the past, no longer using long acting inhaler states she does not need it, only uses prn rescue inhaler Altered bowel habits Leigh has had issue s with her bowels since she lived in [place], colonoscopy completed, negative, states her bowels have improved. Seasonal allergies states they work whe n she uses them. Hot flashes due to menopause going to tr y over the counter vitamins Anxiety has seen Paul Stoddard on, [employer] in the past. was suppose to be following with the community clinic,pt has anxiety issues as well as depressive issues. denies suicidal thoughts Herniated nucleus pulposus of lumbosacral region following with [facility] [place] supposed to get spinal cord stimulator per notes. from last visit,but is now following with Dr. Rodriguez at [facility]. injections doing well on gabapentin and tramadol Tobacco abuse does not plan on holly tting at the current time. Gastroesophageal reflux disease without esophagitis Controlled with omeprazole Diarrhea, unspecified type Tried Imodium , and Pepto helped somewhatGoing rubin smith, unable to complete stool study, when she returns on Tuesday of next week if she continues to have diarrheal issues will contact the office and we will performed GI panel Right ear pain Will treat with anti biotic and Diflucan Treatment Notes Test Name Order Date HEMOGLOBIN A1c 2021-04-20 Comprehensive Metabolic Profile (CMP) 2021-04-20 TSH 2021-04-20 LIPID PANEL (CARDIAC RISK) 2021-04-20 Next Appt Details 6 month routine Reason: Provider Name:Dasha Winchester, 03:30:00 PM, [address] [facility], , [place], [address], Insurance Providers Payer Name Payer Address Payer Phone Insured Name Patient Relati onship to Insured Coverage Start Date Coverage End Date [facility] [employer] [address] [facility] [phone] [place] self
--- OUTSIDE RECORDS SUMMARY | 2021-07-11 15:12 | CCD ---
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 Name Role Phone Ginger Iniguez Unavailable Unavailable Ginger Iniguez Unavailable Unavailable Ginger Iniguez Unavailable Unavailable Ginger Iniguez Unavailable Unavailable Ginger Iniguez Unavailable Unavailable Ginger Iniguez Unavailable Unavailable Ginger Iniguez Unavailable Unavailable Ginger Iniguez Unavailable Unavailable Ginger Iniguez Unavailable Unavailable Ginger Iniguez Unavailable Unavailable Geetha, Lor MD Unavailable Unavailable Geetha, Lor MD Unavailable Unavailable Geetha, Lor MD Unavailable Unavailable Geetha, Lor MD Unavailable Unavailable Geetha, Lor MD Unavailable Unavailable Geetha, Lor MD Unavailable Unavailable Geetha, Lor MD Unavailable Unavailable Geetha, Lor MD Unavailable Unavailable Geetha, Lor MD Unavailable Unavailable Geetha, Lor MD Unavailable Unavailable Geetha, Lor MD Unavailable Unavailable Geetha, Lor MD Unavailable Unavailable Geetha, Lor MD Unavailable Unavailable Geetha, Lor MD Unavailable Unavailable Geetha, Lor MD Unavailable Unavailable Geetha, Lor MD Unavailable Unavailable Geetha, Lor MD Unavailable Unavailable Geetha, Lor MD Unavailable Unavailable Geetha, Lor MD Unavailable Unavailable Geetha, Lor MD Unavailable Unavailable Geetha, Lor MD Unavailable Unavailable Geetha, Lor MD Unavailable Unavailable Geetha, Lor MD Unavailable Unavailable Geetha, Lor MD Unavailable Unavailable Geetha, Lor MD Unavailable Unavailable Geetha, Lor MD Unavailable Unavailable Geetha, Lor MD Unavailable Unavailable Geetha, Lor MD Unavailable Unavailable Geetha, Lor MD Unavailable Unavailable Geetha, Lor MD Unavailable Unavailable Geetha, Lor MD Unavailable Unavailable Geetha, Lor MD Unavailable Unavailable Geetha, Lor MD Unavailable Unavailable Geetha, Lor MD Unavailable Unavailable Geetha, Lor MD Unavailable Unavailable Geetha, Lor MD Unavailable Unavailable Geetha, Lor MD Unavailable Unavailable Geetha, Lor MD Unavailable Unavailable Geetha, Lor MD Unavailable Unavailable Geetha, Lor MD Unavailable Unavailable Geetha, Lor MD Unavailable Unavailable Geetha, Lor MD Unavailable Unavailable Geetha, Lor MD Unavailable Unavailable Geetha, Lor MD Unavailable Unavailable Geetha, Lor MD Unavailable Unavailable Geetha, Lor MD Unavailable Unavailable Geetha, Lor MD Unavailable Unavailable Geetha, Lor MD Unavailable Unavailable Geetha, Lor MD Unavailable Unavailable Geetha, Lor MD Unavailable Unavailable Geetha, Lor MD Unavailable Unavailable Geetha, Lor MD Unavailable Unavailable Hector Rodriguez MD Unavailable Unavailable Hector Rodriguez MD Unavailable Unavailable Hector Rodriguez MD Unavailable Unavailable Hector Rodriguez MD Unavailable Unavailable Hector Rodriguez MD Unavailable Unavailable Hector Rodriguez MD Unavailable Unavailable Hector Rodriguez MD Unavailable Unavailable Hector Rodriguez MD Unavailable Unavailable Hector Rodriguez MD Unavailable Unavailable BolHector farfan MD Unavailable Unavailable BolHector farfan MD Unavailable Unavailable BollaHector MD Unavailable Unavailable BolHector farfan MD Unavailable Unavailable BollaHector MD Unavailable Unavailable Bolnaheed, Hector Underwood MD Unavailable Unavailable BolHector farfan MD Unavailable Unavailable BolHector farfan MD Unavailable Unavailable Bolla, Hector Underwood MD Unavailable Unavailable Bolnaheed, Hector Underwood MD Unavailable Unavailable BolHector farfan MD Unavailable Unavailable BolHector farfan MD Unavailable Unavailable BolHector farfan MD Unavailable Unavailable BolHector farfan MD Unavailable Unavailable Bolnaheed, Hector Underwood MD Unavailable Unavailable Bolnaheed, Hector Underwood MD Unavailable Unavailable Bolnaheed, Hector Underwood MD Unavailable Unavailable Bolnaheed, Hector Underwood MD Unavailable Unavailable BolHector farfan MD Unavailable Unavailable BolHector farfan MD Unavailable Unavailable BolHector farfan MD Unavailable Unavailable BolHector farfan MD Unavailable Unavailable BolHector farfan MD Unavailable Unavailable BolHector farfan MD Unavailable Unavailable BolHector farfan MD Unavailable Unavailable BolHector farfan MD Unavailable Unavailable BolHector farfan MD Unavailable Unavailable BolHector farfan MD Unavailable Unavailable BolHector farfan MD Unavailable Unavailable BolHector farfan MD Unavailable Unavailable BolHector farfan MD Unavailable Unavailable BolHector farfan MD Unavailable Unavailable BolHector farfan MD Unavailable Unavailable BolHector farfan MD Unavailable Unavailable BolHector farfan MD Unavailable Unavailable BolHector farfan MD Unavailable Unavailable BolHector farfan MD Unavailable Unavailable BolHector farfan MD Unavailable Unavailable BolHector farfan MD Unavailable Unavailable BolHector farfan MD Unavailable Unavailable Jumalon, M Jeanette MAT MACHINE TENDER Unavailable Unavailable Jumalon, M Jeanette MAT MACHINE TENDER Unavailable Unavailable Jumalon, M Jeanette MAT MACHINE TENDER Unavailable Unavailable Jumalon, M Jeanette MAT MACHINE TENDER Unavailable Unavailable Jumalon, M Jeanette MAT MACHINE TENDER Unavailable Unavailable Jumalon, M Jeanette MAT MACHINE TENDER Unavailable Unavailable Jumalon, M Jeanette MAT MACHINE TENDER Unavailable Unavailable Jumalon, M Jeanette MAT MACHINE TENDER Unavailable Unavailable Jumalon, M Jeanette MAT MACHINE TENDER Unavailable Unavailable Jumalon, M Jeanette MAT MACHINE TENDER Unavailable Unavailable Jumalon, M Jeanette MAT MACHINE TENDER Unavailable Unavailable Jumalon, M Jeanette MAT MACHINE TENDER Unavailable Unavailable Jumalon, M Jeanette MAT MACHINE TENDER Unavailable Unavailable Jumalon, M Jeanette MAT MACHINE TENDER Unavailable Unavailable Jumalon, M Jeanette MAT MACHINE TENDER Unavailable Unavailable Jumalon, M Jeanette MAT MACHINE TENDER Unavailable Unavailable Jumalon, M Jeanette MAT MACHINE TENDER Unavailable Unavailable Jumalon, M Jeanette MAT MACHINE TENDER Unavailable Unavailable Jumalon, M Jeanette MAT MACHINE TENDER Unavailable Unavailable Jumalon, M Jeanette MAT MACHINE TENDER Unavailable Unavailable Jumalon, M Jeanette MAT MACHINE TENDER Unavailable Unavailable Jumalon, M Jeanette MAT MACHINE TENDER Unavailable Unavailable Jumalon, M Jeanette MAT MACHINE TENDER Unavailable Unavailable Jumalon, M Jeanette MAT MACHINE TENDER Unavailable Unavailable Jumalon, M Jeanette MAT MACHINE TENDER Unavailable Unavailable Jumalon, M Jeanette MAT MACHINE TENDER Unavailable Unavailable Jumalon, M Jeanette MAT MACHINE TENDER Unavailable Unavailable Jumalon, M Jeanette MAT MACHINE TENDER Unavailable Unavailable Jumalon, M Jeanette MAT MACHINE TENDER Unavailable Unavailable Jumalon, M Jeanette MAT MACHINE TENDER Unavailable Unavailable Hawkins, Bethel Victoria Unavailable Unavailable Hawkins, Bethel Victoria Unavailable Unavailable Hawkins, Bethel Victoria Unavailable Unavailable Hawkins, Bethel Victoria Unavailable Unavailable Hawkins, Bethel Victoria Unavailable Unavailable Hawkins, Bethel Victoria Unavailable Unavailable Hawkins, Bethel Victoria Unavailable Unavailable Hawkins, Bethel Victoria Unavailable Unavailable Hawkins, Bethel Victoria Unavailable Unavailable Hawkins, Bethel Victoria Unavailable Unavailable Hawkins, Bethel Victoria Unavailable Unavailable Hawkins, Bethel Victoria Unavailable Unavailable Hawkins, Bethel Victoria Unavailable Unavailable Re-disclosure Warning The records that you are about to access may contain information from federally-assisted alcohol or drug abuse programs. If such information is present, then the following federally mandated warning applies: This information has been disclosed to you from records protected by federal confidentiality rules (42 CFR part 2). The federal rules prohibit you from making any further disclosure of this information unless further disclosure is expressly permitted by the written consent of the person to whom it pertains or as otherwise permitted by 42 CFR part 2. A general authorization for the release of medical or other information is NOT sufficient for this purpose. The Federal rules restrict any use of the information to criminally investigate or prosecute any alcohol or drug abuse patient.The records that you are about to access may contain highly sensitive health information, the redisclosure of which is protected by Article 27-F of the [facility] Public Health law. If you continue you may have access to information: Regarding HIV / AIDS; Provided by facilities licensed or operated by the [facility] Office of Mental Health; or Provided by the [facility] Office for People With Developmental Disabilities. If such information is present, then the following [facility] mandated warning applies: This information has been disclosed to you from confidential records which are protected by state law. State law prohibits you from making any further disclosure of this information without the specific written consent of the person to whom it pertains, or as otherwise permitted by law. Any unauthorized further disclosure in violation of state law may result in a fine or prison sentence or both. A general authorization for the release of medical or other information is NOT sufficient authorization for further disc losure. Family History Family Member Name Family Member Gender Family Member Status Date o f Status Description Data Source(s) Unknown Unknown Problem MEDENT ([facility]) Unknown Male Problem MEDENT ([facility] Unknown Unknown Problem MEDENT ([facility], ) Unknown Unknown Problem MEDENT ([facility], ) dx age 68 father Encounters Encounter Providers Location Date Indications Data Source(s ) Jeanette Gross FOREST RESOURCE SPECIALIST: [id number] [facility] [address], [place] [address], Ph. Attender: Jeanette DÍAZ [facility] 06/15/2021 12:00:00 AM EDT ATHE NA ([facility]) Kj Rodriguez MD: [id number] [facility] [address], [place] [address], Ph. Attender: Kj Rodriguez MD [facility] 05/14/2021 12:00:00 AM EDT AUGUSTIN ([facility]) Kj Rodriguez MD: [address], [place] [address], Ph. Attender: Kj Rodriguez MD [place] - [facility] 05/14/2021 12:00:00 AM EDT AUGUSTIN ([facility]) Kj Rodriguez MD: [address], [place] [address], Ph. [phone] Attender: Kj Rodriguez MD [place] - [facility] 05/11/2021 12:00:00 AM EDT AUGUSTIN ([facility]) Kj Rodriguez MD: [address], [place] [address], Ph. [phone] Attender: Kj Rodriguez MD [place] - [facility] 05/11/2021 12:00:00 AM EDT AUGUSTIN ([facility]) Kj Rodriguez MD: [address], [place] [address], Ph. [phone] Attender: Kj Rodriguez MD DC - [facility] 05/11/2021 12:00:00 AM EDT AUGUSTIN ([facility]) Jeanette Gross, FOREST RESOURCE SPECIALIST: [address], [place] [address], Ph. Attender: Jeanette Gross [facility] - [facility] 05/07/2021 12:00:00 AM EDT LYSSA DIGGS ([facility]) Jeanette Gross, FOREST RESOURCE SPECIALIST: [address], [place] [address], Ph. Attender: Jeanette Gross [facility] - [facility] 05/07/2021 12:00:00 AM EDT ATHE NA ([facility]) Jeanette Gross, FOREST RESOURCE SPECIALIST: [address], [place] [address], Ph. Attender: Jeanette Gross [facility] - [facility] 05/07/2021 12:00:00 AM EDT ATHSheri DIGGS ([facility]) Jeanette Gross, FOREST RESOURCE SPECIALIST: [address], [place] [address], Ph. Attender: Jeanette Gross [facility] - [facility] 05/07/2021 12:00:00 AM EDT ATHSheri DIGGS ([facility]) Outpatient [address] [facility] [place] [address] 04/20/2021 12:00:00 AM EDT [facility] Jeanette Gross, FOREST RESOURCE SPECIALIST: [address], [place] [address], Ph. Attender: Jeanette Gross [facility] - [facility] 03/18/2021 12:00:00 AM EDT ATHSheri DIGGS ([facility]) Jeanette Gauthier Sugeyadam, FOREST RESOURCE SPECIALIST: [address], [place] [address], Ph. Attender: Jeanette Eidvasile [facility] - [facility] 03/18/2021 12:00:00 AM EDT ATHSheri DIGGS ([facility]) Jeanette Gross, FOREST RESOURCE SPECIALIST: [address], [place] [address], Ph. Attender: Jeanette Ginny [facility] - [facility] 03/18/2021 12:00:00 AM EDT ATHSheri DIGGS ([facility]) Jeanette Gross, FOREST RESOURCE SPECIALIST: [address], [address], [place] [address], Ph. Attender: Jeanette Gross [facility] - [facility] 03/18/2021 12:00:00 AM EDT ATHE NA ([facility]) Jeanette Gross, FOREST RESOURCE SPECIALIST: [address], [address], [place] [address], Ph. Attender: Jeanette Gross [facility] - [facility] 03/18/2021 12:00:00 AM EDT ATHE NA ([facility]) Kj Rodriguez MD: [address], [address], [place] [address], Ph. Attender: Kj Rodriguez MD DC - [facility] 03/02/2021 12:00:00 AM EDT AUGUSTIN ([facility]) Kj Rodriguez MD: [address], [address], [place] [address], Ph. Attender: Kj Rodriguez MD DC - [facility] 03/02/2021 12:00:00 AM EDT AUGUSTIN ([facility]) Kj Rodriguez MD: [address], [address], [place] [address], Ph. Attender: Kj Rodriguez MD DC - [facility] 03/02/2021 12:00:00 AM EDT AUGUSTIN ([facility]) Kj Rodriguez MD: [address], [address], [place] [address], Ph. Attender: Kj Rodriguez MD DC - [facility] 03/02/2021 12:00:00 AM EDT AUGUSTIN ([facility]) Kj Rodriguez MD: [address], [address], [place] [address], Ph. Attender: Kj Rodriguez MD DC - [facility] 03/02/2021 12:00:00 AM EDT AUGUSTIN ([facility]) Kj Rodriguez MD: [address], [address], [place] [address], Ph. Attender: Kj Rodriguez MD DC - [facility] 03/02/2021 12:00:00 AM EDT AUGUSTIN ([facility]) Kj Rodriguez MD: [address], [address], [place] [address], Ph. Attender: Kj SHEEHAN - [facility] 02/19/2021 12:00:00 AM EDT AUGUSTIN ([facility]) Kj Rodriguez MD: [address], [address], [place] [address], Ph. Attender: Kj SHEEHAN - [facility] 02/19/2021 12:00:00 AM EDT AUGUSTIN ([facility]) Kj Rodriguez MD: [address], [address], [place] [address], Ph. Attender: Kj Rodriguez MD DC - [facility] 02/19/2021 12:00:00 AM EDT AUGUSTIN ([facility]) Kj Rodriguez MD: [address], [address], [place] [address], Ph. Attender: Kj Rodriguez MD DC - [facility] 02/19/2021 12:00:00 AM EDT AUGUSTIN ([facility]) Kj Rodriguez MD: [address], [address], [place] [address], Ph. Attender: Kj Rodriguez MD DC - [facility] 02/19/2021 12:00:00 AM EDT AUGUSTIN ([facility]) Kj Rodriguez MD: [address], [address], [place] [address], Ph. Attender: Kj Rodriguez MD DC - [facility] 02/19/2021 12:00:00 AM EDT AUGUSITN ([facility]) Kj Rodriguez MD: [address], [address], [place] [address], Ph. Attender: Kj Rodriguez MD DC - [facility] 02/19/2021 12:00:00 AM EDT AUGUSTIN ([facility]) Kj Rodriguez MD: [address], [address], [place] [address], Ph. [phone] Attender: Kj SHEEHAN - [facility] 02/16/2021 12:00:00 AM EDT AUGUSTIN ([facility]) Kj Rodriguez MD: [address], [address], [place] [address], Ph. [phone] Attender: Kj Rodriguez MD DC - [facility] 02/16/2021 12:00:00 AM EDT AUGUSTIN ([facility]) Kj Rodriguez MD: [address], [place] [address], Ph. [phone] Attender: Kj SHEEHAN - [facility] 02/16/2021 12:00:00 AM EDT AUGUSTIN ([facility]) Kj Rodriguez MD: [address], [place] [address], Ph. [phone] Attender: Kj Rodriguez MD DC - [facility] 02/16/2021 12:00:00 AM EDT AUGUSTIN ([facility]) Kj Rodriguez MD: [address], [place] [address], Ph. [phone] Attender: Kj Rodriguez MD DC - [facility] 02/16/2021 12:00:00 AM EDT AUGUSTIN ([facility]) Kj Rodriguez MD: [address], [facility] [place] [address], Ph. [phone] Attender: Kj Rodriguez MD DC - [facility] 02/16/2021 12:00:00 AM EDT AUGUSTIN ([facility]) Kj Rodriguez MD: [address], [place] [address], Ph. [phone] Attender: Kj Rodriguez MD DC - [facility] 02/16/2021 12:00:00 AM EDT AUGUSTIN ([facility]) Kj Rodriguez MD: [address], [facility] [place] [address], Ph. [phone] Attender: Kj Rodriguez MD DC - [facility] 02/16/2021 12:00:00 AM EDT AUGUSTIN ([facility]) Jeanette Gross, FOREST RESOURCE SPECIALIST: [address], [address], [place] [address], Ph. Attender: [facility] - [facility] 02/11/2021 12:00:00 AM EDT ATHE DONTAE ([facility]) Jeanette Gross, FOREST RESOURCE SPECIALIST: [address], [address], [place] [address], Ph. Attender: Jeanette Gross [facility] - [facility] 02/11/2021 12:00:00 AM EDT ATHE NA ([facility]) Jeanette Gross, FOREST RESOURCE SPECIALIST: [address], [address], [place] [address], Ph. Attender: Jeanette Gross [facility] - [facility] 02/11/2021 12:00:00 AM EDT ATHE NA ([facility]) Jeanette Gross, FOREST RESOURCE SPECIALIST: [address], [place] [address], Ph. Attender: Jeanette Gross [facility] - [facility] 02/11/2021 12:00:00 AM EDT ATHE NA ([facility]) Jeanette Gross, FOREST RESOURCE SPECIALIST: [address], [place] [address], Ph. Attender: Jeanette Gross [facility] - [facility] 02/11/2021 12:00:00 AM EDT ATHE NA ([facility]) Jeanette Gross, FOREST RESOURCE SPECIALIST: [address], [address], [place] [address], Ph. Attender: Jeanette Gross [facility] - [facility] 02/11/2021 12:00:00 AM EDT ATHE NA ([facility]) Jeanette Gross, FOREST RESOURCE SPECIALIST: [address], [address], [place] [address], Ph. Attender: Jeanette Gross [facility] - [facility] 02/11/2021 12:00:00 AM EDT ATHSheri NA ([facility]) Jeanette Gross, FOREST RESOURCE SPECIALIST: [address], [place] [address], Ph. Attender: Jeanette Gross [facility] - [facility] 02/11/2021 12:00:00 AM EDT ATHSheri NA ([facility]) Jeanette Gross, FOREST RESOURCE SPECIALIST: [address], [place] [address], Ph. Attender: Jeanette Gross [facility] - [facility] 02/11/2021 12:00:00 AM EDT LYSSA DIGGS ([facility]) Victoria Hawkins [facility]: [address] [place] [address], Ph. Attender: Victoria SHEEHAN - [facility] - [facility] Medical 02/03/2021 12:00:00 AM EDT AUGUSTIN ([facility]) Kj Rodriguez MD: [address], [place] [address], Ph. Attender: Kj Rodriguez MD DC - [facility] 01/14/2021 12:00:00 AM EDT AUGUSTIN ([facility]) Kj Rodriguez MD: [address], [place] [address], Ph. Attender: Kj Rodriguez MD [place] - [facility] 01/14/2021 12:00:00 AM EDT AUGUSTIN ([facility]) Kj Rodriguez MD: [address], [place] [address], Ph. Attender: Kj Rodriguez MD DC - [facility] 01/14/2021 12:00:00 AM EDT AUGUSTIN ([facility]) Kj Rodriguez MD: [address], [address], [place] [address], Ph. Attender: Kj Rodriguez MD DC - [facility] 01/14/2021 12:00:00 AM EDT AUGUSTIN ([facility]) Kj Rodriguez MD: [address], [address], [place] [address], Ph. Attender: Kj Rodriguez MD DC - [facility] 01/14/2021 12:00:00 AM EDT AUGUSTIN ([facility]) Kj Rodriguez MD: [address], [address], [place] [address], Ph. Attender: Kj Rodriguez MD DC - [facility] 01/14/2021 12:00:00 AM EDT AUGUSTIN ([facility]) Kj Rodriguez MD: [address], [address], [place] [address], Ph. Attender: Kj Rodriguez MD DC - [facility] 01/14/2021 12:00:00 AM EDT AUGUSTIN ([facility]) Kj Rodriguez MD: [address], [address], [place] [address], Ph. Attender: Kj Rodriguez MD DC - [facility] 01/14/2021 12:00:00 AM EDT AUGUSTIN ([facility]) Kj Rodriguez MD: [address], [address], [place] [address], Ph. Attender: Kj Rodriguez MD DC - [facility] 01/14/2021 12:00:00 AM EDT AUGUSTIN ([facility]) Kj Rodriguez MD: [address], [address], [place] [address], Ph. Attender: Kj Rodriguez MD DC - [facility] 01/14/2021 12:00:00 AM EDT AUGUSTIN ([facility]) Kj Rodriguez MD: [address], [address], [place] [address], Ph. [phone] Attender: Kj Rodriguez MD DC - [facility] 01/09/2021 12:00:00 AM EDT AUGUSTIN ([facility]) Kj Rodriguez MD: [address], [address], [place] [address], Ph. [phone] Attender: Kj Rodriguez MD DC - [facility] 01/09/2021 12:00:00 AM EDT AUGUSTIN ([facility]) Kj Rodriguez MD: [address], [address], [place] [address], Ph. [phone] Attender: Kj Rodriguez MD DC - [facility] 01/09/2021 12:00:00 AM EDT AUGUSTIN ([facility]) Kj Rodriguez MD: [address], [address], [place] [address], Ph. [phone] Attender: Kj SHEEHAN - [facility] 01/09/2021 12:00:00 AM EDT AUGUSTIN ([facility]) Kj Rodriguez MD: [address], [address], [place] [address], Ph. [phone] Attender: Kj Rodriguez MD DC - [facility] 01/09/2021 12:00:00 AM EDT AUGUSTIN ([facility]) Kj Rodriguez MD: [address], [address], [place] [address], Ph. [phone] Attender: Kj Rodriguez MD DC - [facility] 01/09/2021 12:00:00 AM EDT AUGUSTIN ([facility]) Kj Rodriguez MD: [address], [address], [place] [address], Ph. [phone] Attender: Kj Rodriguez MD DC - [facility] 01/09/2021 12:00:00 AM EDT AUGUSTIN ([facility]) Kj Rodriguez MD: [address], [address], [place] [address], Ph. [phone] Attender: Kj Rodriguez MD DC - [facility] 01/09/2021 12:00:00 AM EDT AUGUSTIN ([facility]) Kj Rodriguez MD: [address], [address], [place] [address], Ph. [phone] Attender: Kj Rodriguez MD DC - [facility] 01/09/2021 12:00:00 AM EDT AUGUSTIN ([facility]) Kj Rodriguez MD: [address], [address], [place] [address], Ph. [phone] Attender: Kj SHEEHAN - [facility] 01/09/2021 12:00:00 AM EDT AUGUSTIN ([facility]) Kj Rodriguez MD: [address], [address], [place] [address], Ph. [phone] Attender: Kj SHEEHAN - [facility] 01/09/2021 12:00:00 AM EDT AUGUSTIN ([facility]) [place] [address] [facility] [address] 01/06/2021 12:00:00 AM EDT eCW1 ([facility] BRE Johnston-C: [address] [place], [place] [address], Ph. Attender: Victoria SHEEHAN [facility] Medical 01/06/2021 12:00:00 AM EDT AUGUSTIN ([facility]) BRE Johnston-C: [address] [place], [place] [address], Ph. Attender: Victoria SHEEHAN [facility] Medical 01/06/2021 12:00:00 AM EDT [place]USTIN ([facility]) Unknown [address] [facility] [address] 12/31/2020 12:00:00 AM EDT eCW1 ([facility]) Unknown [address] [facility] [address] 12/25/2020 12:00:00 AM EDT eCW1 ([facility]) Jeanette Gross, FOREST RESOURCE SPECIALIST: [address], [place] [address], Ph. Attender: Jeanette Gross [facility] - [facility] - [facility] Office 12/24/2020 12:00:00 AM EDT LYSSA DIGGS ([facility]) Jeanette Gross, FOREST RESOURCE SPECIALIST: [address], [place] [address], Ph. Attender: Jeanette Gross [facility] - [facility] - Main Office 12/24/2020 12:00:00 AM EDT ATHSheri DIGGS ([facility]) Jeanette Gross, FOREST RESOURCE SPECIALIST: [address], [address], [place] [address], Ph. Attender: Jeanette Gross [facility] - [facility] 12/24/2020 12:00:00 AM EDT ATHE NA ([facility]) Jeanette Gross, FOREST RESOURCE SPECIALIST: [address], [address], [place] [address], Ph. Attender: Jeanette Gross [facility] - [facility] 12/24/2020 12:00:00 AM EDT ATHE NA ([facility]) Jeanette Gross, FOREST RESOURCE SPECIALIST: [address], [place] [address], Ph. Attender: Jeanette Gross [facility] - [facility] 12/24/2020 12:00:00 AM EDT ATHE NA ([facility]) Jeanette Gross, FOREST RESOURCE SPECIALIST: [address], [place] [address], Ph. Attender: Jeanette Gross [facility] - [facility] 12/24/2020 12:00:00 AM EDT ATHE NA ([facility]) Jeanette Gross, FOREST RESOURCE SPECIALIST: [address], [address], [place] [address], Ph. Attender: Jeanette Gross [facility] - [facility] 12/24/2020 12:00:00 AM EDT ATHE NA ([facility]) Jeanette Gross, FOREST RESOURCE SPECIALIST: [address], [place] [address], Ph. Attender: Jeanette Gross [facility] - [facility] 12/24/2020 12:00:00 AM EDT ATHE NA ([facility]) Jeanette Gross, FOREST RESOURCE SPECIALIST: [address], [place] [address], Ph. Attender: Jeanette Gross [facility] - [facility] 12/24/2020 12:00:00 AM EDT ATHE NA ([facility]) Jeanette Gross, FOREST RESOURCE SPECIALIST: [address], [place] [address], Ph. Attender: Jeanette Gross [facility] - [facility] 12/24/2020 12:00:00 AM EDT ATHE NA ([facility]) Jeanette Gross, FOREST RESOURCE SPECIALIST: [address], [place] [address], Ph. Attender: Jeanette Gross [facility] - [facility] 12/24/2020 12:00:00 AM EDT ATHE NA ([facility]) Jeanette Gross, FOREST RESOURCE SPECIALIST: [address], [place] [address], Ph. Attender: Jeanette Gross [facility] - [facility] 12/24/2020 12:00:00 AM EDT ATHE NA ([facility]) Kj Rodriguez MD: [address], [place] [address], Ph. Attender: Kj Rodriguez MD DC - [facility] 12/03/2020 12:00:00 AM EST AUGUSTIN ([facility]) Kj Rodriguez MD: [address], [place] [address], Ph. Attender: Kj Rodriguez MD DC - [facility] 12/03/2020 12:00:00 AM EST AUGUSTIN ([facility]) Kj Rodriguez MD: [address], [address], [place] [address], Ph. Attender: Kj Rodriguez MD DC - [facility] 12/03/2020 12:00:00 AM EST AUGUSTIN ([facility]) Kj Rodriguez MD: [address], [address], [place] [address], Ph. Attender: Kj Rodriguez MD DC - [facility] 12/03/2020 12:00:00 AM EST AUGUSTIN ([facility]) Kj Rodriguez MD: [address], [address], [place] [address], Ph. Attender: Kj Rodriguez MD DC - [facility] 12/03/2020 12:00:00 AM EST AUGUSTIN ([facility]) Kj Rodriguez MD: [address], [place] [address], Ph. Attender: Kj Rodriguez MD DC - [facility] 12/03/2020 12:00:00 AM EST AUGUSTIN ([facility]) Kj Rodriguez MD: [address], [address], [place] [address], Ph. Attender: Kj Rodriguez MD DC - [facility] 12/03/2020 12:00:00 AM EST AUGUSTIN ([facility]) Kj Rodriguez MD: [address], [address], [place] [address], Ph. Attender: Kj Rodriguez MD DC - [facility] 12/03/2020 12:00:00 AM EST AUGUSTIN ([facility]) Kj Rodriguez MD: [address], [address], [place] [address], Ph. Attender: Kj Rodriguez MD DC - [facility] 12/03/2020 12:00:00 AM EST AUGUSTIN ([facility]) Kj Rodriguez MD: [address], [address], [place] [address], Ph. Attender: Kj Rodriguez MD DC - [facility] 12/03/2020 12:00:00 AM EST AUGUSTIN ([facility]) Kj Rodriguez MD: [address], [address], [place] [address], Ph. Attender: Kj Rodriguez MD DC - [facility] 12/03/2020 12:00:00 AM EST AUGUSTIN ([facility]) Kj Rodriguez MD: [address], [address], [place] [address], Ph. Attender: Kj Rodriguez MD DC - [facility] 12/03/2020 12:00:00 AM EST AUGUSTIN ([facility]) Kj Rodriguez MD: [address], [address], [place] [address], Ph. Attender: Kj Rodriguez MD DC - [facility] 12/03/2020 12:00:00 AM EST AUGUSTIN ([facility]) Kj Rodriguez MD: [address], [address], [place] [address], Ph. [phone] Attender: Kj Rodriguez MD DC - [facility] 12/01/2020 12:00:00 AM EST AUGUSTIN ([facility]) Kj Rodriguez MD: [address], [address], [place] [address], Ph. [phone] Attender: Kj Rodriguez MD DC - [facility] 12/01/2020 12:00:00 AM EST AUGUSTIN ([facility]) Kj Rodriguez MD: [address], [address], [place] [address], Ph. [phone] Attender: Kj Rodriguez MD DC - [facility] 12/01/2020 12:00:00 AM EST AUGUSTIN ([facility]) Kj Rodriguez MD: [address], [address], [place] [address], Ph. [phone] Attender: Kj Rodriguez MD DC - [facility] 12/01/2020 12:00:00 AM EST AUGUSTIN ([facility]) Kj Rodriguez MD: [address], [address], [place] [address], Ph. [phone] Attender: Kj Rodriguez MD DC - [facility] 12/01/2020 12:00:00 AM EST AUGUSTIN ([facility]) Kj Rodriguez MD: [address]47 [address], [address], [place] [address], Ph. [phone] Attender: Kj Rodriguez MD DC - [facility] 12/01/2020 12:00:00 AM EST AUGUSTIN ([facility]) Kj Rodriguez MD: [address], [address], [place] [address], Ph. [phone] Attender: Kj Rodriguez MD DC - [facility] 12/01/2020 12:00:00 AM EST AUGUSTIN ([facility]) Kj Rodriguez MD: [address], [place] [address], Ph. [phone] Attender: Kj Rodriguez MD DC - [facility] 12/01/2020 12:00:00 AM EST AUGUSTIN ([facility]) Kj Rodriguez MD: [address]295 [address], [address], [place] [address], Ph. [phone] Attender: Kj Rodriguez MD DC - [facility] 12/01/2020 12:00:00 AM EST AUGUSTIN ([facility]) Kj Rodriguez MD: [address], [place] [address], Ph. [phone] Attender: Kj Rodriguez MD DC - [facility] 12/01/2020 12:00:00 AM EST AUGUSTIN ([facility]) Kj Rodriguez MD: [address], [place] [address], Ph. [phone] Attender: Kj Rodriguez MD DC - [facility] 12/01/2020 12:00:00 AM EST AUGUSTIN ([facility]) Kj Rodriguez MD: [address], [place] [address], Ph. [phone] Attender: Kj Rodriguez MD DC - [facility] 12/01/2020 12:00:00 AM EST AUGUSTIN ([facility]) Kj Rodriguez MD: [address], [place] [address], Ph. [phone] Attender: Kj Rodriguez MD DC - [facility] 12/01/2020 12:00:00 AM EST AUGUSTIN ([facility]) Kj Rodriguez MD: [address]48 [address], [address], [place] [address], Ph. [phone] Attender: Kj Rodriguez MD DC - [facility] 12/01/2020 12:00:00 AM EST AUGUSTIN ([facility]) Kj Rodriguez MD: [address], [address], [place] [address], Ph. Attender: Kj Rodriguez MD DC - [facility] 11/26/2020 12:00:00 AM EST AUGUSTIN ([facility]) Kj Rodriguez MD: [address]30 [address], [address], [place] [address], Ph. Attender: Kj Rodriguez MD DC - [facility] 11/26/2020 12:00:00 AM EST AUGUSTIN ([facility]) Kj Rodriguez MD: [address]68 [address], [address], [place] [address], Ph. Attender: Kj Rodriguez MD DC - [facility] 11/26/2020 12:00:00 AM EST AUGUSTIN ([facility]) Kj Rodriguez MD: [address]878 [address], [place] [address], Ph. Attender: Kj Rodriguez MD DC - [facility] 11/26/2020 12:00:00 AM EST AUGUSTIN ([facility]) Kj Rodriguez MD: [address], [place] [address], Ph. Attender: Kj Rodriguez MD DC - [facility] 11/26/2020 12:00:00 AM EST AUGUSTIN ([facility]) Kj Rodriguez MD: [address]240 [address], [address], [place] [address], Ph. Attender: Kj Rodriguez MD DC - [facility] 11/26/2020 12:00:00 AM EST AUGUSTIN ([facility]) Kj Rodriguez MD: [address]31 [address], [address], [place] [address], Ph. Attender: Kj Rodriguez MD DC - [facility] 11/26/2020 12:00:00 AM EST AUGUSTIN ([facility]) Kj Rodriguez MD: [address]41 [address], [address], [place] [address], Ph. Attender: Kj Rodriguez MD DC - [facility] 11/26/2020 12:00:00 AM EST AUGUSTIN ([facility]) Kj Rodriguez MD: [address]88 [address], [place] [address], Ph. Attender: Kj Rodriguez MD DC - [facility] 11/26/2020 12:00:00 AM EST AUGUSTIN ([facility]) Kj Rodriguez MD: [address]31 [address], [place] [address], Ph. Attender: Kj Rodriguez MD DC - [facility] 11/26/2020 12:00:00 AM EST AUGUSTIN ([facility]) Kj Rodriguez MD: [address]96 [address], [place] [address], Ph. Attender: Kj SHEEHAN - [facility] 11/26/2020 12:00:00 AM EST AUGUSTIN ([facility]) Kj Rodriguez MD: [address]312 [address], [address], [place] [address], Ph. Attender: Kj Rodriguez MD DC - [facility] 11/26/2020 12:00:00 AM EST AUGUSTIN ([facility]) Kj Rodriguez MD: [address]27 [address], [address], [place] [address], Ph. Attender: Kj Rodriguez MD DC - [facility] 11/26/2020 12:00:00 AM EST AUGUSTIN ([facility]) Kj Rodriguez MD: [address]681 [address], [address], [place] [address], Ph. Attender: Kj Rodriguez MD DC - [facility] 11/26/2020 12:00:00 AM EST AUGUSTIN ([facility]) Kj Rodriguez MD: [address]41 [address], [address], [place] [address], Ph. Attender: Kj Rodriguez MD DC - [facility] 11/26/2020 12:00:00 AM EST AUGUSTIN ([facility]) Kj Rodriguez MD: [address]68 [address], [place] [address], Ph. [phone] Attender: Kj Rodriguez MD DC - [facility] 11/21/2020 12:00:00 AM EST AUGUSTIN ([facility]) Kj Rodriguez MD: [address]92 [address], [place] [address], Ph. [phone] Attender: Kj Rodriguez MD DC - [facility] 11/21/2020 12:00:00 AM EST AUGUSTIN ([facility]) Kj Rodriguez MD: [address]9 [address], [address], [place] [address], Ph. [phone] Attender: Kj Rodriguez MD DC - [facility] 11/21/2020 12:00:00 AM EST AUGUSTIN ([facility]) Kj Rodriguez MD: [address]83 [address], [address], [place] [address], Ph. [phone] Attender: Kj Rodriguez MD DC - [facility] 11/21/2020 12:00:00 AM EST AUGUSTIN ([facility]) Kj Rodriguez MD: [address]86 [address], [address], [place] [address], Ph. [phone] Attender: Kj SHEEHAN - [facility] 11/21/2020 12:00:00 AM EST AUGUSTIN ([facility]) Kj Rodriguez MD: 74227 [address], [address], [place] [address], Ph. [phone] Attender: Kj Rodriguez MD DC - [facility] 11/21/2020 12:00:00 AM EST AUGUSTIN ([facility]) Kj Rodriguez MD: [address]22 [address], [address], [place] [address], Ph. [phone] Attender: Kj Rodriguez MD DC - [facility] 11/21/2020 12:00:00 AM EST AUGUSTIN ([facility]) Kj Rodriguez MD: [address]81 [address], [address], [place] [address], Ph. [phone] Attender: Kj Rodriguez MD DC - [facility] 11/21/2020 12:00:00 AM EST AUGUSTIN ([facility]) Kj Rodriguez MD: [address]2775 [address], [address], [place] [address], Ph. [phone] Attender: Kj Rodriguez MD DC - [facility] 11/21/2020 12:00:00 AM EST AUGUSTIN ([facility]) Kj Rodriguez MD: [address]605 [address], [place] [address], Ph. [phone] Attender: Kj Rodriguez MD DC - [facility] 11/21/2020 12:00:00 AM EST AUGUSTIN ([facility]) Kj Rodriguez MD: [address]66 [address], [place] [address], Ph. [phone] Attender: Kj SHEEHAN - [facility] 11/21/2020 12:00:00 AM EST AUGUSTIN ([facility]) Kj Rodriguez MD: 38389 [address], [place] [address], Ph. [phone] Attender: Kj SHEEHAN - [facility] 11/21/2020 12:00:00 AM EST AUGUSTIN ([facility]) Kj Rodriguez MD: 78266 [address], [place] [address], Ph. [phone] Attender: Kj Rodriguez MD DC - [facility] 11/21/2020 12:00:00 AM EST AUGUSTIN ([facility]) Kj Rodriguez MD: [address]409 [address], [place] [address], Ph. [phone] Attender: Kj Rodriguez MD DC - [facility] 11/21/2020 12:00:00 AM EST AUGUSTIN ([facility]) Kj Rodriguez MD: 50363 [address], [place] [address], Ph. [phone] Attender: Kj SHEEHAN - [facility] 11/21/2020 12:00:00 AM EST AUGUSTIN ([facility]) Kj Rodriguez MD: [address]73 [address], [address], [place] [address], Ph. [phone] Attender: Kj Rodriguez MD DC - [facility] 11/21/2020 12:00:00 AM EST AUGUSTIN ([facility]) Kj Rodriguez MD: [address]4636 [address], [address], [place] [address], Ph. [phone] Attender: Kj Rodriguez MD DC - [facility] 11/10/2020 12:00:00 AM EST AUGUSTIN ([facility]) Kj Rodriguez MD: 76016 [address], [place] [address], Ph. [phone] Attender: Kj Rodriguez MD DC - [facility] 11/10/2020 12:00:00 AM EST AUGUSTIN ([facility]) Kj Rodriguez MD: 26953 [address], [address], [place] [address], Ph. [phone] Attender: Kj Rodriguez MD DC - [facility] 11/10/2020 12:00:00 AM EST AUGUSTIN ([facility]) Kj Rodriguez MD: [address]3045 [address], [address], [place] [address], Ph. [phone] Attender: Kj Rodriguez MD DC - [facility] 11/10/2020 12:00:00 AM EST AUGUSTIN ([facility]) Kj Rodriguez MD: [address]80 [address], [place] [address], Ph. [phone] Attender: Kj Rodriguez MD DC - [facility] 11/10/2020 12:00:00 AM EST AUGUSTIN ([facility]) Kj Rodriguez MD: 32353 [address], [address], [place] [address], Ph. [phone] Attender: Kj Rodriguez MD DC - [facility] 11/10/2020 12:00:00 AM EST AUGUSTIN ([facility]) Kj Rodriguez MD: [address]1242 [address], [address], [place] [address], Ph. [phone] Attender: Kj Rodriguez MD DC - [facility] 11/10/2020 12:00:00 AM EST AUGUSTIN ([facility]) Kj Rodriguez MD: 49591 [address], [address], [place] [address], Ph. [phone] Attender: Kj SHEEHAN - [facility] 11/10/2020 12:00:00 AM EST AUGUSTIN ([facility]) Kj Rodriguez MD: 65144 [address], [address], [place] [address], Ph. [phone] Attender: Kj SHEEHAN - [facility] 11/10/2020 12:00:00 AM EST AUGUSTIN ([facility]) Kj Rodriguez MD: 12102 [address], [address], [place] [address], Ph. [phone] Attender: Kj SHEEHAN - [facility] 11/10/2020 12:00:00 AM EST AUGUSTIN ([facility]) Kj Rodriguez MD: 67183 [address], [address], [place] [address], Ph. [phone] Attender: Kj SHEEHAN - [facility] 11/10/2020 12:00:00 AM EST AUGUSTIN ([facility]) Kj Rodriguez MD: [address]3914 [address], [address], [place] [address], Ph. [phone] Attender: Kj SHEEHAN - [facility] 11/10/2020 12:00:00 AM EST AUGUSTIN ([facility]) Kj Rodriguez MD: 32344 [address], [place] [address], Ph. [phone] Attender: Kj Rodriguez MD DC - [facility] 11/10/2020 12:00:00 AM EST AUGUSTIN ([facility]) Kj Rodriguez MD: 14192 [address], [place] [address], Ph. [phone] Attender: Kj Rodriguez MD DC - [facility] 11/10/2020 12:00:00 AM EST AUGUSTIN ([facility]) Kj Rodriguez MD: 89366 [address], [place] [address], Ph. [phone] Attender: Kj Rodriguez MD DC - [facility] 11/10/2020 12:00:00 AM EST AUGUSTIN ([facility]) Kj Rodriguez MD: 82242 [address], [place] [address], Ph. [phone] Attender: Kj Rodriguez MD DC - [facility] 11/10/2020 12:00:00 AM EST AUGUSTIN ([facility]) Kj Rodriguez MD: 46022 [address] [address], [place] [address], Ph. [phone] Attender: Kj Rodriguez MD DC - [facility] 11/10/2020 12:00:00 AM EST AUGUSTIN ([facility]) Outpatient [address] [facility] [address] 10/23/2020 12:00:00 AM EST eCW1 (Formerly [facility]) Kj Rodriguez MD: [address], [place] [address], Ph. Attender: Kj Rodriguez MD DC - [facility] 10/20/2020 12:00:00 AM EST AUGUSTIN ([facility]) Kj Rodriguez MD: 41646 [address], [address], [place] [address], Ph. Attender: Kj Rodriguez MD DC - [facility] 10/20/2020 12:00:00 AM EST AUGUSTIN ([facility]) Kj Rodriguez MD: 03881 [address], [address], [place] [address], Ph. Attender: Kj Rodriguez MD DC - [facility] 10/20/2020 12:00:00 AM EST AUGUSTIN ([facility]) Kj Rodriguez MD: 65118 [address], [address], [place] [address], Ph. Attender: Kj Rodriguez MD DC - [facility] 10/20/2020 12:00:00 AM EST AUGUSTIN ([facility]) Kj Rodriguez MD: 81159 [address], [address], [place] [address], Ph. Attender: Kj Rodriguez MD DC - [facility] 10/20/2020 12:00:00 AM EST AUGUSTIN ([facility]) Kj Rodriguez MD: 35867 [address], [address], [place] [address], Ph. Attender: Kj Rodriguez MD DC - [facility] 10/20/2020 12:00:00 AM EST AUGUSTIN ([facility]) Kj Rodriguez MD: 80281 [address], [address], [place] [address], Ph. Attender: Kj Rodriguez MD DC - [facility] 10/20/2020 12:00:00 AM EST AUGUSTIN ([facility]) Kj Rodriguez MD: 12570 [address], [place] [address], Ph. Attender: Kj Rodriguez MD DC - [facility] 10/20/2020 12:00:00 AM EST AUGUSTIN ([facility]) Kj Rodriguez MD: 82385 [address], [address], [place] [address], Ph. Attender: Kj Rodriguez MD DC - [facility] 10/20/2020 12:00:00 AM EST AUGUSTIN ([facility]) Kj Rodriguez MD: 28282 [address], [address], [place] [address], Ph. Attender: Kj SHEEHAN - [facility] 10/20/2020 12:00:00 AM EST AUGUSTIN ([facility]) Kj Rodriguez MD: 41256 [address], [place] [address], Ph. Attender: Kj SHEEHAN - [facility] 10/20/2020 12:00:00 AM EST AUGUSTIN ([facility]) Kj Rodriguez MD: 61657 [address], [address], [place] [address], Ph. Attender: Kj SHEEHAN - [facility] 10/20/2020 12:00:00 AM EST AUGUSTIN ([facility]) Kj Rodriguez MD: 55812 [address], [address], [place] [address], Ph. Attender: Kj Rodriguez MD DC - [facility] 10/20/2020 12:00:00 AM EST AUGUSTIN ([facility]) Kj Rodriguez MD: 64148 [address], [place] [address], Ph. Attender: Kj Rodriguez MD DC - [facility] 10/20/2020 12:00:00 AM EST AUGUSTIN ([facility]) Kj Rodriguez MD: 17091 [address], [address], [place] [address], Ph. Attender: Kj Rodriguez MD DC - [facility] 10/20/2020 12:00:00 AM EST AUGUSTIN ([facility]) Kj Rodriguez MD: 63706 [address], [place] [address], Ph. Attender: Kj Rodriguez MD DC - [facility] 10/20/2020 12:00:00 AM EST AUGUSTIN ([facility]) Kj Rodriguez MD: 23187 [address], [place] [address], Ph. Attender: Kj SHEEHAN - [facility] 10/20/2020 12:00:00 AM EST AUGUSTIN ([facility]) Kj Rodriguez MD: 60976 [address], [address], [place] [address], Ph. Attender: Kj SHEEHAN - [facility] 10/20/2020 12:00:00 AM EST AUGUSTIN ([facility]) Kj Rodriguez MD: 01721 [address], [place] [address], Ph. [phone] Attender: Kj Rodriguez MD DC - [facility] 10/15/2020 12:00:00 AM EST AUGUSTIN ([facility]) Kj Rodriguez MD: 29933 [address], [place] [address], Ph. [phone] Attender: Kj Rodriguez MD DC - [facility] 10/15/2020 12:00:00 AM EST AUGUSTIN ([facility]) Kj Rodriguez MD: 34763 [address], [address], [place] [address], Ph. [phone] Attender: jK Rodriguez MD DC - [facility] 10/15/2020 12:00:00 AM EST AUGUSTIN ([facility]) Kj Rodriguez MD: 87998 [address], [address], [place] [address], Ph. [phone] Attender: Kj Rodriguez MD DC - [facility] 10/15/2020 12:00:00 AM EST AUGUSTIN ([facility]) Kj Rodriguez MD: 96756 [address], [address], [place] [address], Ph. [phone] Attender: Kj Rodriguez MD DC - [facility] 10/15/2020 12:00:00 AM EST AUGUSTIN ([facility]) Kj Rodriguez MD: 69441 [address], [address], [place] [address], Ph. [phone] Attender: Kj Rodriguez MD DC - [facility] 10/15/2020 12:00:00 AM EST AUGUSTNI ([facility]) Kj Rodriguez MD: 59936 [address], [address], [place] [address], Ph. [phone] Attender: Kj Rodriguez MD DC - [facility] 10/15/2020 12:00:00 AM EST AUGUSTIN ([facility]) Kj Rodriguez MD: 37416 [address], [place] [address], Ph. [phone] Attender: Kj Rodriguez MD DC - [facility] 10/15/2020 12:00:00 AM EST AUGUSTIN ([facility]) Kj Rodriguez MD: 23196 [address], [address], [place] [address], Ph. [phone] Attender: Kj Rodriguez MD DC - [facility] 10/15/2020 12:00:00 AM EST AUGUSTIN ([facility]) Kj Rodriguez MD: 15880 [address], [place] [address], Ph. [phone] Attender: Kj Rodriguez MD DC - [facility] 10/15/2020 12:00:00 AM EST AUGUSTIN ([facility]) Kj Rodriguez MD: 25161 [address], [address], [place] [address], Ph. [phone] Attender: Kj Rodriguez MD DC - [facility] 10/15/2020 12:00:00 AM EST AUGUSTIN ([facility]) Kj Rodriguez MD: 18694 [address], [place] [address], Ph. [phone] Attender: Kj Rodriguez MD DC - [facility] 10/15/2020 12:00:00 AM EST AUGUSTIN ([facility]) Kj Rodriguez MD: 42009 [address], [place] [address], Ph. [phone] Attender: Kj Rodriguez MD DC - [facility] 10/15/2020 12:00:00 AM EST AUGUSTIN ([facility]) Kj Rodriguez MD: 58065 [address], [address], [place] [address], Ph. [phone] Attender: jK Rodriguez MD DC - [facility] 10/15/2020 12:00:00 AM EST AUGUSTIN ([facility]) Kj Rodriguez MD: 28539 [address], [address], [place] [address], Ph. [phone] Attender: Kj Rodriguez MD DC - [facility] 10/15/2020 12:00:00 AM EST AUGUSTIN ([facility]) Kj Rodriguez MD: 92795 [address], [facility] [place] [address], Ph. [phone] Attender: Kj Rodriguez MD DC - [facility] 10/15/2020 12:00:00 AM EST AUGUSTIN ([facility]) Kj Rodriguez MD: 96270 [address], [address], [place] [address], Ph. [phone] Attender: Kj Rodriguez MD DC - [facility] 10/15/2020 12:00:00 AM EST AUGUSTIN ([facility]) Kj Rodriguez MD: 00658 [address], [place] [address], Ph. [phone] Attender: Kj Rodriguez MD DC - [facility] 10/15/2020 12:00:00 AM EST AUGUSTIN ([facility]) Kj Rodriguez MD: 51795 [address], [address], [place] [address], Ph. [phone] Attender: Kj Rodriguez MD DC - [facility] 10/15/2020 12:00:00 AM EST AUGUSTIN ([facility]) Jeanette Gross, FOREST RESOURCE SPECIALIST: [address], [address], [place] [address], Ph. Attender: Jeanette Gross [facility] - [facility] 10/07/2020 12:00:00 AM EST ATHE NA ([facility]) Jeanette Gross, FOREST RESOURCE SPECIALIST: [address], [place] [address], Ph. Attender: Jeanette Gross [facility] - [facility] 10/07/2020 12:00:00 AM EST ATHE NA ([facility]) Jeanette Gross, FOREST RESOURCE SPECIALIST: [address], [place] [address], Ph. Attender: Jeanette Gross [facility] - [facility] 10/07/2020 12:00:00 AM EST ATHE NA ([facility]) Jeanette Gross, FOREST RESOURCE SPECIALIST: [address]18 [address], [place] [address], Ph. Attender: Jeanette Gross [facility] - [facility] 10/07/2020 12:00:00 AM EST ATHE NA ([facility]) Jeanette Gross, FOREST RESOURCE SPECIALIST: [address]27 [address], [place] [address], Ph. Attender: Jeanette Gross [facility] - [facility] 10/07/2020 12:00:00 AM EST ATHE NA ([facility]) Jeanette Gross, FOREST RESOURCE SPECIALIST: [address]25 [address], [place] [address], Ph. Attender: Jeanette Gross [facility] - [facility] 10/07/2020 12:00:00 AM EST ATHE NA ([facility]) Jeanette Gross, FOREST RESOURCE SPECIALIST: [address], [place] [address], Ph. Attender: Jeanette Gross [facility] - [facility] 10/07/2020 12:00:00 AM EST ATHE NA ([facility]) Jeanette Gross, FOREST RESOURCE SPECIALIST: [address]32 [address], [address], [place] [address], Ph. Attender: Jeanette Gross [facility] - [facility] 10/07/2020 12:00:00 AM EST ATHE NA ([facility]) Jeanette Gross, FOREST RESOURCE SPECIALIST: [address]695 [address], [place] [address], Ph. Attender: Jeanette Gross [facility] - [facility] 10/07/2020 12:00:00 AM EST ATHE NA ([facility]) Jeanette Gross, FOREST RESOURCE SPECIALIST: [address]37 [address], [place] [address], Ph. Attender: Jeanette Gross [facility] - [facility] 10/07/2020 12:00:00 AM EST ATHE NA ([facility]) Jeanette Gross, FOREST RESOURCE SPECIALIST: [address]141 [address], [place] [address], Ph. Attender: Jeanette Gross [facility] - [facility] 10/07/2020 12:00:00 AM EST ATHE NA ([facility]) Jeanette Gross, FOREST RESOURCE SPECIALIST: [address]35 [address], [place] [address], Ph. Attender: Jeanette Ginny [facility] - [facility] 10/07/2020 12:00:00 AM EST ATHE NA ([facility]) Jeanette Gross, FOREST RESOURCE SPECIALIST: [address]73 [address], [place] [address], Ph. Attender: Jeanette Gross [facility] - [facility] 10/07/2020 12:00:00 AM EST ATHE NA ([facility]) Jeanette Gross, FOREST RESOURCE SPECIALIST: [address]342 [address], [place] [address], Ph. Attender: Jeanette Gross [facility] - [facility] 10/07/2020 12:00:00 AM EST ATHE NA ([facility]) Jeanette Gross, FOREST RESOURCE SPECIALIST: [address]057 [address], [place] [address], Ph. Attender: Jeanette Gross [facility] - [facility] 10/07/2020 12:00:00 AM EST ATHE NA ([facility]) Jeanette Gross, FOREST RESOURCE SPECIALIST: [address]254 [address], [place] [address], Ph. Attender: Jeanette Gross [facility] - [facility] 10/07/2020 12:00:00 AM EST ATHE NA ([facility]) Jeanette Gross, FOREST RESOURCE SPECIALIST: [address]231 [address], [place] [address], Ph. Attender: Jeanette Gross [facility] - [facility] 10/07/2020 12:00:00 AM EST ATHE NA ([facility]) Jeanette Gross, FOREST RESOURCE SPECIALIST: [address]35 [address], [place] [address], Ph. Attender: Jeanette Gross [facility] - [facility] 10/07/2020 12:00:00 AM EST ATHE NA ([facility]) Jeanette Gross, FOREST RESOURCE SPECIALIST: [address]199 [address], [address], [place] [address], Ph. Attender: Jeanette Gross [facility] - [facility] 10/07/2020 12:00:00 AM EST ATHE NA ([facility]) Jeanette Dangelo Ginny, FOREST RESOURCE SPECIALIST: [address]191 [address], [place] [address], Ph. Attender: Jeanette Gross [facility] - [facility] 10/07/2020 12:00:00 AM EST ATHE NA ([facility]) Outpatient Attender: Lor Iniguez MD [facility] 09/08/2020 11:30:00 AM EST MEDENT ([facility] ) Kj Rodriguez MD: 21395 [address], [place] [address], Ph. Attender: Kj SHEEHAN - [facility] 09/02/2020 12:00:00 AM EST AUGUSTIN ([facility]) Kj Rodriguez MD: 87321 [address], [place] [address], Ph. Attender: Kj Rodriguez MD DC - [facility] 09/02/2020 12:00:00 AM EST AUGUSTIN ([facility]) Kj Rodriguez MD: 87248 [address], [place] [address], Ph. Attender: Kj Rodriguez MD DC - [facility] 09/02/2020 12:00:00 AM EST AUGUSTIN ([facility]) Kj Rodriguez MD: 10246 [address], [place] [address], Ph. Attender: Kj SHEEHAN - [facility] 09/02/2020 12:00:00 AM EST AUGUSTIN ([facility]) Kj Rodriguez MD: 30395 [address], [address], [place] [address], Ph. Attender: Kj SHEEHAN - [facility] 09/02/2020 12:00:00 AM EST AUGUSTIN ([facility]) Kj Rodriguez MD: 82736 [address], [place] [address], Ph. Attender: Kj SHEEHAN - [facility] 09/02/2020 12:00:00 AM EST AUGUSTIN ([facility]) Kj Rodriguez MD: 74104 [address], [place] [address], Ph. Attender: Kj SHEEHAN - [facility] 09/02/2020 12:00:00 AM EST AUGUSTIN ([facility]) Kj Rodriguez MD: 07291 [address], [place] [address], Ph. Attender: Kj SHEEHAN - [facility] 09/02/2020 12:00:00 AM EST AUGUSTIN ([facility]) Kj Rodriguez MD: 45816 [address], [address], [place] [address], Ph. Attender: Kj SHEEHAN - [facility] 09/02/2020 12:00:00 AM EST AUGUSTIN ([facility]) Kj Rodriguez MD: 00616 [address], [place] [address], Ph. Attender: Kj Rodriguez MD DC - [facility] 09/02/2020 12:00:00 AM EST AUGUSTIN ([facility]) Kj Rodriguez MD: 55100 [address], [address], [place] [address], Ph. Attender: Kj Rodriguez MD DC - [facility] 09/02/2020 12:00:00 AM EST AUGUSTIN ([facility]) Kj Rodriguez MD: 78516 [address], [place] [address], Ph. Attender: Kj SHEEHAN - [facility] 09/02/2020 12:00:00 AM EST AUGUSTIN ([facility]) Kj Rodriguez MD: 38502 [address], [place] [address], Ph. Attender: Kj SHEEHAN - [facility] 09/02/2020 12:00:00 AM EST AUGUSTIN ([facility]) Kj Rodriguez MD: 42106 [address], [address], [place] [address], Ph. Attender: Kj SHEEHAN - [facility] 09/02/2020 12:00:00 AM EST AUGUSTIN ([facility]) Kj Rodriguez MD: 68797 [address], [place] [address], Ph. Attender: Kj SHEEHAN - [facility] 09/02/2020 12:00:00 AM EST AUGUSTIN ([facility]) Kj Rodriguez MD: 98524 [address], [address], [place] [address], Ph. Attender: Kj Rodriguez MD DC - [facility] 09/02/2020 12:00:00 AM EST AUGUSTIN ([facility]) Kj Rodriguez MD: 78663 [address], [address], [place] [address], Ph. Attender: Kj Rodriguez MD DC - [facility] 09/02/2020 12:00:00 AM EST AUGUSTIN ([facility]) Kj Rodriguez MD: 70287 [address], [address], [place] [address], Ph. Attender: Kj Rodriguez MD DC - [facility] 09/02/2020 12:00:00 AM EST AUGUSTIN ([facility]) Kj Rodriguez MD: 51656 [address], [address], [place] [address], Ph. Attender: Kj Rodriguez MD DC - [facility] 09/02/2020 12:00:00 AM EST AUGUSTIN ([facility]) Kj Rodriguez MD: 26342 [address], [address], [place] [address], Ph. Attender: Kj Rodriguez MD DC - [facility] 09/02/2020 12:00:00 AM EST AUGUSTIN ([facility]) Kj Rodriguez MD: 92693 [address], [address], [place] [address], Ph. Attender: Kj Rodriguez MD DC - [facility] 09/02/2020 12:00:00 AM EST AUGUSTIN ([facility]) Kj oRdriguez MD: 49958 [address], [place] [address], Ph. Attender: Kj Rodriguez MD DC - [facility] 08/20/2020 12:00:00 AM EST AUGUSTIN ([facility]) Kj Rodriguez MD: 53036 [address], [place] [address], Ph. Attender: Kj SHEEHAN - [facility] 08/20/2020 12:00:00 AM EST AUGUSTIN ([facility]) Kj Rodriguez MD: 18814 [address], [place] [address], Ph. Attender: Kj SHEEHAN - [facility] 08/20/2020 12:00:00 AM EST AUGUSTIN ([facility]) Kj Rodrgiuez MD: 89774 [address], [place] [address], Ph. Attender: Kj SHEEHAN - [facility] 08/20/2020 12:00:00 AM EST AUGUSTIN ([facility]) Kj Rodriguez MD: 75325 [address], [place] [address], Ph. Attender: Kj SHEEHAN - [facility] 08/20/2020 12:00:00 AM EST AUGUSTIN ([facility]) Kj Rodriguez MD: 12563 [address], [place] [address], Ph. Attender: Kj SHEEHAN - [facility] 08/20/2020 12:00:00 AM EST AUGUSTIN ([facility]) Kj Rodriguez MD: 43108 [address], [place] [address], Ph. Attender: Kj Rodriguez MD DC - [facility] 08/20/2020 12:00:00 AM EST AUGUSTIN ([facility]) Kj Rodriguez MD: 84214 [address], [place] [address], Ph. Attender: Kj Rodriguez MD DC - [facility] 08/20/2020 12:00:00 AM EST AUGUSTIN ([facility]) Kj Rodriguez MD: 88161 [address], [place] [address], Ph. Attender: Kj Rodriguez MD DC - [facility] 08/20/2020 12:00:00 AM EST AUGUSTIN ([facility]) Kj Rodriguez MD: 86926 [address], [place] [address], Ph. Attender: Kj SHEEHAN - [facility] 08/20/2020 12:00:00 AM EST AUGUSTIN ([facility]) Kj Rodriguez MD: 04083 [address], [place] [address], Ph. Attender: Kj SHEEHAN - [facility] 08/20/2020 12:00:00 AM EST AUGUSTIN ([facility]) Kj Rodriguez MD: 77789 [address], [place] [address], Ph. Attender: Kj SHEEHAN - [facility] 08/20/2020 12:00:00 AM EST AUGUSTIN ([facility]) Kj Rodriguez MD: 64558 [address], [address], [place] [address], Ph. Attender: Kj Rodriguez MD DC - [facility] 08/20/2020 12:00:00 AM EST AUGUSTIN ([facility]) Kj Rodriguez MD: 82608 [address], [place] [address], Ph. Attender: Kj Rodriguez MD DC - [facility] 08/20/2020 12:00:00 AM EST AUGUSTIN ([facility]) Kj Rodriguez MD: 65427 [address], [place] [address], Ph. Attender: Kj Rodriguez MD DC - [facility] 08/20/2020 12:00:00 AM EST AUGUSTIN ([facility]) Kj Rodriguez MD: 66302 [address], [place] [address], Ph. Attender: Kj Rodriguez MD DC - [facility] 08/20/2020 12:00:00 AM EST AUGUSTIN ([facility]) Kj Rodriguez MD: 11135 [address], [place] [address], Ph. Attender: Kj Rodriguez MD DC - [facility] 08/20/2020 12:00:00 AM EST AUGUSTIN ([facility]) Kj Rodriguez MD: 64264 [address], [place] [address], Ph. Attender: Kj Rodriguez MD DC - [facility] 08/20/2020 12:00:00 AM EST AUGUSTIN ([facility]) Kj Rodriguez MD: 76716 [address], [address], [place] [address], Ph. Attender: Kj Rodriguez MD DC - [facility] 08/20/2020 12:00:00 AM EST AUGUSTIN ([facility]) Kj Rodriguez MD: 35262 [address], [address], [place] [address], Ph. Attender: Kj Rodriguez MD DC - [facility] 08/20/2020 12:00:00 AM EST AUGUSTIN ([facility]) Kj Rodriguez MD: 75432 [address], [place] [address], Ph. Attender: Kj Rodriguez MD DC - [facility] 08/20/2020 12:00:00 AM EST AUGUSTIN ([facility]) Kj Rodriguez MD: 35159 [address], [address], [place] [address], Ph. Attender: Kj SHEEHAN - [facility] 08/20/2020 12:00:00 AM EST AUGUSTIN ([facility]) Kj Rodriguez MD: [address], [place] [address], Ph. [phone] Attender: Kj SHEEHAN - [facility] 08/15/2020 12:00:00 AM EST AUGUSTIN ([facility]) Kj Rodriguez MD: [address], [address], [place] [address], Ph. [phone] Attender: Kj SHEEHAN - [facility] 08/15/2020 12:00:00 AM EST AUGUSTIN ([facility]) Kj Rodriguez MD: [address], [address], [place] [address], Ph. [phone] Attender: Kj Rodriguez MD DC - [facility] 08/15/2020 12:00:00 AM EST AUGUSTIN ([facility]) Kj Rodriguez MD: [address], [place] [address], Ph. [phone] Attender: Kj Rodriguez MD DC - [facility] 08/15/2020 12:00:00 AM EST AUGUSTIN ([facility]) Kj Rodriguez MD: [address], [place] [address], Ph. [phone] Attender: Kj Rodriguez MD DC - [facility] 08/15/2020 12:00:00 AM EST AUGUSTIN ([facility]) Kj Rodriguez MD: [address], [place] [address], Ph. [phone] Attender: Kj Rodriguez MD DC - [facility] 08/15/2020 12:00:00 AM EST AUGUSTIN ([facility]) Kj Rodriguez MD: [address], [address], [place] [address], Ph. [phone] Attender: Kj Rodriguez MD DC - [facility] 08/15/2020 12:00:00 AM EST AUGUSTIN ([facility]) Kj Rodriguez MD: [address], [place] [address], Ph. [phone] Attender: Kj Rodriguez MD DC - [facility] 08/15/2020 12:00:00 AM EST AUGUSTIN ([facility]) Kj Rodriguez MD: [address], [place] [address], Ph. [phone] Attender: Kj SHEEHAN - [facility] 08/15/2020 12:00:00 AM EST AUGUSTIN ([facility]) Kj Rodriguez MD: [address]17 [address], [address], [place] [address], Ph. [phone] Attender: Kj Rodriguez MD DC - [facility] 08/15/2020 12:00:00 AM EST AUGUSTIN ([facility]) Kj Rodriguez MD: [address]014 [address], [address], [place] [address], Ph. [phone] Attender: Kj Rodriguez MD DC - [facility] 08/15/2020 12:00:00 AM EST AUGUSTIN ([facility]) Kj Rodriguez MD: [address], [place] [address], Ph. [phone] Attender: Kj Rodriguez MD DC - [facility] 08/15/2020 12:00:00 AM EST AUGUSTIN ([facility]) Kj Rodriguez MD: [address]107 [address], [address], [place] [address], Ph. [phone] Attender: Kj Rodriguez MD DC - [facility] 08/15/2020 12:00:00 AM EST AUGUSTIN ([facility]) Kj Rodriguez MD: [address], [place] [address], Ph. [phone] Attender: Kj Rodriguez MD DC - [facility] 08/15/2020 12:00:00 AM EST AUGUSTIN ([facility]) Kj Rodriguez MD: [address]14 [address], [place] [address], Ph. [phone] Attender: Kj Rodriguez MD DC - [facility] 08/15/2020 12:00:00 AM EST AUGUSTIN ([facility]) Kj Rodriguez MD: [address]33 [address], [address], [place] [address], Ph. [phone] Attender: Kj Rodriguez MD DC - [facility] 08/15/2020 12:00:00 AM EST AUGUSTIN ([facility]) Kj Rodriguez MD: [address]38 [address], [address], [place] [address], Ph. [phone] Attender: Kj Rodriguez MD DC - [facility] 08/15/2020 12:00:00 AM EST AUGUSTIN ([facility]) Kj Rodriguez MD: [address]180 [address], [address], [place] [address], Ph. [phone] Attender: Kj SHEEHAN - [facility] 08/15/2020 12:00:00 AM EST AUGUSTIN ([facility]) Kj Rodriguez MD: [address]37 [address], [address], [place] [address], Ph. [phone] Attender: Kj SHEEHAN - [facility] 08/15/2020 12:00:00 AM EST AUGUSTIN ([facility]) Kj Rodriguez MD: [address]35 [address], [address], [place] [address], Ph. [phone] Attender: Kj SHEEHAN - [facility] 08/15/2020 12:00:00 AM EST AUGUSTIN ([facility]) Kj Rodriguez MD: [address]02 [address], [address], [place] [address], Ph. [phone] Attender: Kj SHEEHAN - [facility] 08/15/2020 12:00:00 AM EST AUGUSTIN ([facility]) Kj Rodriguez MD: [address], [address], [place] [address], Ph. [phone] Attender: Kj SHEEHAN - [facility] 08/15/2020 12:00:00 AM EST AUGUSTIN ([facility]) Kj Rodriguez MD: [address]35 [address], [place] [address], Ph. [phone] Attender: Kj Rodriguez MD DC - [facility] 08/15/2020 12:00:00 AM EST AUGUSTIN ([facility]) Jeanette Gross, FOREST RESOURCE SPECIALIST: [address], [place] [address], Ph. Attender: Jeanette Gross [facility] - [facility] 08/12/2020 12:00:00 AM EST ATHE NA ([facility]) Jeanette Gross, FOREST RESOURCE SPECIALIST: [address], [place] [address], Ph. Attender: Jeanette Gross [facility] 08/12/2020 12:00:00 AM EST ATHE NA ([facility]) Jeanette Gross, FOREST RESOURCE SPECIALIST: [address], [place] [address], Ph. Attender: Jeanette Gross [facility] - [facility] 08/12/2020 12:00:00 AM EST ATHE NA ([facility]) Jeanette Gross, FOREST RESOURCE SPECIALIST: [address], [place] [address], Ph. Attender: Jeanette Gross [facility] - [facility] 08/12/2020 12:00:00 AM EST ATHE NA ([facility]) Jeanette Gauthier Ginny, FOREST RESOURCE SPECIALIST: [address], [place] [address], Ph. Attender: Jeanette Gross [facility] - [facility] 08/12/2020 12:00:00 AM EST ATHE NA ([facility]) Jeanette Gross, FOREST RESOURCE SPECIALIST: [address], [place] [address], Ph. Attender: Jeanette Gross [facility] - [facility] 08/12/2020 12:00:00 AM EST ATHE NA ([facility]) Jeanette Gross, FOREST RESOURCE SPECIALIST: [address], [place] [address], Ph. Attender: Jeanette Gross [facility] - [facility] 08/12/2020 12:00:00 AM EST ATHE NA ([facility]) Jeanette Gross, FOREST RESOURCE SPECIALIST: [address], [place] [address], Ph. Attender: Jeanette Gross [facility] - [facility] 08/12/2020 12:00:00 AM EST ATHE NA ([facility]) Jeanette Gross, FOREST RESOURCE SPECIALIST: [address], [place] [address], Ph. Attender: Jeanette Gross [facility] - [facility] 08/12/2020 12:00:00 AM EST ATHE NA ([facility]) Jeanette Gorss, FOREST RESOURCE SPECIALIST: [address], [place] [address], Ph. Attender: Jeanette Gross [facility] - [facility] 08/12/2020 12:00:00 AM EST ATHE NA ([facility]) Jeanette Gross, FOREST RESOURCE SPECIALIST: [address], [place] [address], Ph. Attender: Jeanette Gross [facility] - [facility] 08/12/2020 12:00:00 AM EST ATHE NA ([facility]) Jeanette Gross, FOREST RESOURCE SPECIALIST: [address], [place] [address], Ph. Attender: Jeanette Gross [facility] 08/12/2020 12:00:00 AM EST ATHE NA ([facility]) Jeanette Gross, FOREST RESOURCE SPECIALIST: [address], [place] [address], Ph. Attender: Jeanette Gross [facility] 08/12/2020 12:00:00 AM EST ATHE NA ([facility]) Jeanette Gross, FOREST RESOURCE SPECIALIST: [address], [place] [address], Ph. Attender: Jeanette Gross [facility] 08/12/2020 12:00:00 AM EST ATHE NA ([facility]) Jeanette Gross, FOREST RESOURCE SPECIALIST: [address], [place] [address], Ph. Attender: Jeanette Gross [facility] - [facility] 08/12/2020 12:00:00 AM EST ATHE NA ([facility]) Jeanette Gross, FOREST RESOURCE SPECIALIST: [address], [place] [address], Ph. Attender: Jeanette Gross [facility] 08/12/2020 12:00:00 AM EST ATHE NA ([facility]) Jeanette Gross, FOREST RESOURCE SPECIALIST: [address], [address], [place] [address], Ph. Attender: Jeanette Gross [facility] 08/12/2020 12:00:00 AM EST ATHE NA ([facility]) Jeanette Gross, FOREST RESOURCE SPECIALIST: [address], [address], [place] [address], Ph. Attender: Jeanette Gross [facility] 08/12/2020 12:00:00 AM EST ATHE NA ([facility]) Jeanette Gross, FOREST RESOURCE SPECIALIST: [address], [place] [address], Ph. Attender: Jeanette Eidvasile [facility] - [facility] 08/12/2020 12:00:00 AM EST ATHE NA ([facility]) Jeanette Gross, FOREST RESOURCE SPECIALIST: [address], [address], [place] [address], Ph. Attender: Jeanette Sugeyelhamvasile [facility] - [facility] 08/12/2020 12:00:00 AM EST ATHE NA ([facility]) Jeanette Gross, FOREST RESOURCE SPECIALIST: [address], [address], [place] [address], Ph. Attender: Jeanette Sugeyelhamvasile [facility] - [facility] 08/12/2020 12:00:00 AM EST ATHE NA ([facility]) Jeanette Gross, FOREST RESOURCE SPECIALIST: [address], [address], [place] [address], Ph. Attender: Jeanette Gross [facility] - [facility] 08/12/2020 12:00:00 AM EST ATHE NA ([facility]) Jeanette Gross, FOREST RESOURCE SPECIALIST: [address], [place] [address], Ph. Attender: Jeanette Gross [facility] - [facility] 08/12/2020 12:00:00 AM EST ATHE NA ([facility]) Jeanette Gross, FOREST RESOURCE SPECIALIST: [address], [place] [address], Ph. Attender: Jeanette Gross [facility] - [facility] 08/12/2020 12:00:00 AM EST ATHE NA ([facility]) Outpatient Attender: Lor Iniguez MD [facility] 07/22/2020 11:15:00 AM EDT MEDENT ([facility] ) Kj Rodriguez MD: [address], [place] [address], Ph. Attender: Kj Rodriguez MD DC - [facility] 07/16/2020 12:00:00 AM EDT AUGUSTIN ([facility]) Kj Rodriguez MD: [address]161 [address], [place] [address], Ph. Attender: Kj Rodriguez MD DC - [facility] 07/16/2020 12:00:00 AM EDT AUGUSTIN ([facility]) Kj Rordiguez MD: [address]75 [address], [place] [address], Ph. Attender: Kj Rodriguez MD DC - [facility] 07/16/2020 12:00:00 AM EDT AUGUSTIN ([facility]) Kj Rodriguez MD: 98265 [address], [address], [place] [address], Ph. Attender: jK Rodriguez MD DC - [facility] 07/16/2020 12:00:00 AM EDT AUGUSTIN ([facility]) Kj Rodriguez MD: [address]10 [address], [address], [place] [address], Ph. Attender: Kj SHEEHAN - [facility] 07/16/2020 12:00:00 AM EDT AUGUSTIN ([facility]) Kj Rodriguez MD: [address]40 [address], [address], [place] [address], Ph. Attender: Kj SHEEHAN - [facility] 07/16/2020 12:00:00 AM EDT AUGUSTIN ([facility]) Kj Rodriguez MD: [address]874 [address], [address], [place] [address], Ph. Attender: Kj Rodriguez MD DC - [facility] 07/16/2020 12:00:00 AM EDT AUGUSTIN ([facility]) Kj Rodriguez MD: [address]00 [address], [address], [place] [address], Ph. Attender: Kj SHEEHAN - [facility] 07/16/2020 12:00:00 AM EDT AUGUSTIN ([facility]) Kj Rodriguez MD: 96263 [address], [address], [place] [address], Ph. Attender: Kj SHEEHAN - [facility] 07/16/2020 12:00:00 AM EDT AUGUSTIN ([facility]) Kj Rodriguez MD: [address]66 [address], [address], [place] [address], Ph. Attender: Kj SHEEHAN - [facility] 07/16/2020 12:00:00 AM EDT AUGUSTIN ([facility]) Kj Rodriguez MD: 73096 [address], [address], [place] [address], Ph. Attender: Kj SHEEHAN - [facility] 07/16/2020 12:00:00 AM EDT AUGUSTIN ([facility]) Kj Rodriguez MD: 32530 [address], [address], [place] [address], Ph. Attender: Kj SHEEHAN - [facility] 07/16/2020 12:00:00 AM EDT AUGUSTIN ([facility]) Kj Rodriguez MD: 87605 [address], [address], [place] [address], Ph. Attender: Kj SHEEHAN - [facility] 07/16/2020 12:00:00 AM EDT AUGUSTIN ([facility]) Kj Rodriguez MD: 58154 [address], [address], [place] [address], Ph. Attender: Kj SHEEHAN - [facility] 07/16/2020 12:00:00 AM EDT AUGUSTIN ([facility]) Kj Rodriguez MD: 33588 [address], [address], [place] [address], Ph. Attender: Kj SHEEHAN - [facility] 07/16/2020 12:00:00 AM EDT AUGUSTIN ([facility]) Kj Rodriguez MD: [address]2875 [address], [address], [place] [address], Ph. Attender: Kj SHEEHAN - [facility] 07/16/2020 12:00:00 AM EDT AUGUSTIN ([facility]) Kj Rodriguez MD: 23792 [address], [address], [place] [address], Ph. Attender: Kj SHEEHAN - [facility] 07/16/2020 12:00:00 AM EDT AUGUSTIN ([facility]) Kj Rodriguez MD: 21439 [address], [address], [place] [address], Ph. Attender: Kj SHEEHAN - [facility] 07/16/2020 12:00:00 AM EDT AUGUSTIN ([facility]) Kj Rodriguez MD: [address]7918 [address], [address], [place] [address], Ph. Attender: Kj SHEEHAN - [facility] 07/16/2020 12:00:00 AM EDT AUGUSTIN ([facility]) Kj Rodriguez MD: 05337 [address], [address], [place] [address], Ph. Attender: Kj SHEEHAN - [facility] 07/16/2020 12:00:00 AM EDT AUGUSTIN ([facility]) Kj Rodriguez MD: 08012 [address], [address], [place] [address], Ph. Attender: Kj SHEEHAN - [facility] 07/16/2020 12:00:00 AM EDT AUGUSTIN ([facility]) Kj Rodriguez MD: [address]1159 [address], [address], [place] [address], Ph. Attender: Kj Rodriguez MD DC - [facility] 07/16/2020 12:00:00 AM EDT AUGUSTIN ([facility]) Kj Rodriguez MD: 35697 [address], [address], [place] [address], Ph. Attender: Kj SHEEHAN - [facility] 07/16/2020 12:00:00 AM EDT AUGUSTIN ([facility]) Kj Rodriguez MD: 56263 [address], [address], [place] [address], Ph. Attender: Kj SHEEHAN - [facility] 07/16/2020 12:00:00 AM EDT AUGUSTIN ([facility]) Kj Rodriguez MD: 80858 [address], [address], [place] [address], Ph. Attender: Kj Rodriguez MD DC - [facility] 07/16/2020 12:00:00 AM EDT AUGUSTIN ([facility]) Kj Rodriguez MD: [address]16 [address], [place] [address], Ph. [phone] Attender: Kj SHEEHAN - [facility] 07/11/2020 12:00:00 AM EDT AUGUSTIN ([facility]) Kj Rodriguez MD: 27975 [address], [place] [address], Ph. [phone] Attender: Kj SHEEHAN - [facility] 07/11/2020 12:00:00 AM EDT AUGUSTIN ([facility]) Kj Rodriguez MD: [address]07 [address], [address], [place] [address], Ph. [phone] Attender: Kj Rodriguez MD DC - [facility] 07/11/2020 12:00:00 AM EDT AUGUSTIN ([facility]) Kj Rodriguez MD: 41434 [address], [address], [place] [address], Ph. [phone] Attender: Kj Rodriguez MD DC - [facility] 07/11/2020 12:00:00 AM EDT AUGUSTIN ([facility]) Kj Rodriguez MD: 70572 [address], [address], [place] [address], Ph. [phone] Attender: Kj Rodriguez MD DC - [facility] 07/11/2020 12:00:00 AM EDT AUGUSTIN ([facility]) Kj Rodriguez MD: 36156 [address], [address], [place] [address], Ph. [phone] Attender: Kj Rodriguez MD DC - [facility] 07/11/2020 12:00:00 AM EDT AUGUSTIN ([facility]) Kj Rodriguez MD: 42130 [address], [address], [place] [address], Ph. [phone] Attender: Kj SHEEHAN - [facility] 07/11/2020 12:00:00 AM EDT AUGUSTIN ([facility]) Kj Rodriguez MD: 71818 [address], [address], [place] [address], Ph. [phone] Attender: Kj SHEEHAN - [facility] 07/11/2020 12:00:00 AM EDT AUGUSTIN ([facility]) Kj Rodriguez MD: 84382 [address], [address], [place] [address], Ph. [phone] Attender: Kj Rodriguez MD DC - [facility] 07/11/2020 12:00:00 AM EDT AUGUSTIN ([facility]) Kj Rodriguez MD: 78178 [address], [address], [place] [address], Ph. [phone] Attender: Kj Rodriguez MD DC - [facility] 07/11/2020 12:00:00 AM EDT AUGUSTIN ([facility]) Kj Rodriguez MD: 44405 [address], [address], [place] [address], Ph. [phone] Attender: Kj SHEEHAN - [facility] 07/11/2020 12:00:00 AM EDT AUGUSTIN ([facility]) Kj oRdriguez MD: 59486 [address], [address], [place] [address], Ph. [phone] Attender: Kj Rodriguez MD DC - [facility] 07/11/2020 12:00:00 AM EDT AUGUSTIN ([facility]) Kj Rodriguez MD: 22953 [address], [address], [place] [address], Ph. [phone] Attender: Kj Rodriguez MD DC - [facility] 07/11/2020 12:00:00 AM EDT AUGUSTIN ([facility]) Kj Rodriguez MD: 85987 [address], [address], [place] [address], Ph. [phone] Attender: Kj SHEEHAN - [facility] 07/11/2020 12:00:00 AM EDT AUGUSTIN ([facility]) Kj Rodriguez MD: 54450 [address], [address], [place] [address], Ph. [phone] Attender: Kj SHEEHAN - [facility] 07/11/2020 12:00:00 AM EDT AUGUSTIN ([facility]) Kj Rodriguez MD: 75736 [address], [address], [place] [address], Ph. [phone] Attender: Kj Rodriguez MD DC - [facility] 07/11/2020 12:00:00 AM EDT AUGUSTIN ([facility]) Kj Rodriguez MD: 43978 [address], [address], [place] [address], Ph. [phone] Attender: Kj Rodriguez MD DC - [facility] 07/11/2020 12:00:00 AM EDT AUGUSTIN ([facility]) Kj Rodriguez MD: 59352 [address], [address], [place] [address], Ph. [phone] Attender: Kj SHEEHAN - [facility] 07/11/2020 12:00:00 AM EDT AUGUSTIN ([facility]) Kj Rodriguez MD: 38345 [address], [address], [place] [address], Ph. [phone] Attender: Kj Rodriguez MD DC - [facility] 07/11/2020 12:00:00 AM EDT AUGUSTIN ([facility]) Kj Rodriguez MD: 98828 [address], [address], [place] [address], Ph. [phone] Attender: Kj SHEEHAN - [facility] 07/11/2020 12:00:00 AM EDT AUGUSTIN ([facility]) Kj Rodriguez MD: 97848 [address], [address], [place] [address], Ph. [phone] Attender: Kj SHEEHAN - [facility] 07/11/2020 12:00:00 AM EDT AUGUSTIN ([facility]) Kj Rodriguez MD: [address]0723 [address], [address], [place] [address], Ph. [phone] Attender: Kj Rodriguez MD DC - [facility] 07/11/2020 12:00:00 AM EDT AUGUSTIN ([facility]) Kj Rodriguez MD: 95004 [address], [address], [place] [address], Ph. [phone] Attender: Kj Rodriguez MD DC - [facility] 07/11/2020 12:00:00 AM EDT AUGUSTIN ([facility]) Kj Rodriguez MD: 34647 [address], [address], [place] [address], Ph. [phone] Attender: Kj Rodriguez MD DC - [facility] 07/11/2020 12:00:00 AM EDT AUGUSTIN ([facility]) Kj Rodriguez MD: 77917 [address], [address], [place] [address], Ph. [phone] Attender: Kj Rodriguez MD DC - [facility] 07/11/2020 12:00:00 AM EDT AUGUSTIN ([facility]) Kj Rodriguez MD: [address]2975 [address], [address], [place] [address], Ph. [phone] Attender: Kj Rodriguez MD DC - [facility] 07/11/2020 12:00:00 AM EDT AUGUSTIN ([facility]) Jeanette Gross, FOREST RESOURCE SPECIALIST: [address], [address], [place] [address], Ph. Attender: [facility]ette [facility] [facility] - [facility] 07/08/2020 12:00:00 AM EDT ATHSheri DIGGS ([facility]) Jeanette Gross, FOREST RESOURCE SPECIALIST: [address], [address], [place] [address], Ph. Attender: Jeanette Gross [facility] - [facility] 07/08/2020 12:00:00 AM EDT ATHE NA ([facility]) Jeanette Gross, FOREST RESOURCE SPECIALIST: [address], [place] [address], Ph. Attender: Jeanette Gross [facility] - [facility] 07/08/2020 12:00:00 AM EDT ATHE NA ([facility]) Jeanette Gross, FOREST RESOURCE SPECIALIST: [address], [place] [address], Ph. Attender: Jeanette Gross [facility] - [facility] 07/08/2020 12:00:00 AM EDT ATHE NA ([facility]) Jeanette Gross, FOREST RESOURCE SPECIALIST: [address], [place] [address], Ph. Attender: Jeanette Gross [facility] - [facility] 07/08/2020 12:00:00 AM EDT ATHE NA ([facility]) Jeanette Gross, FOREST RESOURCE SPECIALIST: [address], [place] [address], Ph. Attender: Jeanette Gross [facility] - [facility] 07/08/2020 12:00:00 AM EDT ATHE NA ([facility]) Jeanette Gross, FOREST RESOURCE SPECIALIST: [address], [place] [address], Ph. Attender: Jeanette Gross [facility] - [facility] 07/08/2020 12:00:00 AM EDT ATHE NA ([facility]) Jeanette Gross, FOREST RESOURCE SPECIALIST: [address], [address], [place] [address], Ph. Attender: Jeanette Gross [facility] 07/08/2020 12:00:00 AM EDT ATHE NA ([facility]) Jeanette Gross, FOREST RESOURCE SPECIALIST: [address], [address], [place] [address], Ph. Attender: Jeanette Gross [facility] 07/08/2020 12:00:00 AM EDT ATHE NA ([facility]) Jeanette Gross, FOREST RESOURCE SPECIALIST: [address], [place] [address], Ph. Attender: Jeanette Eidvasile [facility] 07/08/2020 12:00:00 AM EDT ATHE NA ([facility]) Jeanette Gross, FOREST RESOURCE SPECIALIST: [address], [address], [place] [address], Ph. Attender: Jeanette Gross [facility] 07/08/2020 12:00:00 AM EDT ATHE NA ([facility]) Jeanette Gross, FOREST RESOURCE SPECIALIST: [address], [address], [place] [address], Ph. Attender: Jeanette Eidvasile [facility] 07/08/2020 12:00:00 AM EDT ATHE NA ([facility]) Jeanette Gross, FOREST RESOURCE SPECIALIST: [address], [address], [place] [address], Ph. Attender: Jeanette Gross [facility] - [facility] 07/08/2020 12:00:00 AM EDT ATHE NA ([facility]) Jeanette Gross, FOREST RESOURCE SPECIALIST: [address], [place] [address], Ph. Attender: Jeanette Gross [facility] - [facility] 07/08/2020 12:00:00 AM EDT ATHE NA ([facility]) Jeanette Gross, FOREST RESOURCE SPECIALIST: [address], [place] [address], Ph. Attender: Jeanette Gross [facility] - [facility] 07/08/2020 12:00:00 AM EDT ATHE NA ([facility]) Jeanette Gross, FOREST RESOURCE SPECIALIST: [address], [place] [address], Ph. Attender: Jeanette Gross [facility] - [facility] 07/08/2020 12:00:00 AM EDT ATHE NA ([facility]) Jeanette Gross, FOREST RESOURCE SPECIALIST: [address], [facility] [place] [address], Ph. Attender: Jeanette Gross [facility] - [facility] 07/08/2020 12:00:00 AM EDT ATHE NA ([facility]) Jeanette Gross, FOREST RESOURCE SPECIALIST: [address], [facility] [place] [address], Ph. Attender: Jeanette Gross [facility] - [facility] 07/08/2020 12:00:00 AM EDT ATHE NA ([facility]) Jeanette Gauthier Sugeyadam, FOREST RESOURCE SPECIALIST: [address], [address], [place] [address], Ph. Attender: Jeanette Gross [facility] - [facility] 07/08/2020 12:00:00 AM EDT ATHE NA ([facility]) Jeanette Gross, FOREST RESOURCE SPECIALIST: [address], [address], [place] [address], Ph. Attender: Jeanette Gross [facility] - [facility] 07/08/2020 12:00:00 AM EDT ATHE NA ([facility]) Jeanette Gross, FOREST RESOURCE SPECIALIST: [address], [place] [address], Ph. Attender: Jeanette Gross [facility] 07/08/2020 12:00:00 AM EDT ATHE NA ([facility]) Jeanette Gross, FOREST RESOURCE SPECIALIST: [address], [address], [place] [address], Ph. Attender: Jeanette Gross [facility] - [facility] 07/08/2020 12:00:00 AM EDT ATHE NA ([facility]) Jeanette Gross, FOREST RESOURCE SPECIALIST: [address], [address], [place] [address], Ph. Attender: Jeanette Gross [facility] - [facility] 07/08/2020 12:00:00 AM EDT ATHE NA ([facility]) Jeanette Gross, FOREST RESOURCE SPECIALIST: [address], [address], [place] [address], Ph. Attender: Jeanette Gross [facility] 07/08/2020 12:00:00 AM EDT ATHE NA ([facility]) Jeanette Gross, FOREST RESOURCE SPECIALIST: [address], [place] [address], Ph. Attender: Jeanette Gross [facility] - [facility] 07/08/2020 12:00:00 AM EDT ATHE NA ([facility]) Jeanette Gross, FOREST RESOURCE SPECIALIST: [address], [place] [address], Ph. Attender: Jeanette Gross [facility] - [facility] 07/08/2020 12:00:00 AM EDT ATHE NA ([facility]) Jeanette Gross, FOREST RESOURCE SPECIALIST: [address], [place] [address], Ph. Attender: Jeanette Gross [facility] - [facility] 07/08/2020 12:00:00 AM EDT ATHE NA ([facility]) Jeanette Gross, FOREST RESOURCE SPECIALIST: [address], [place] [address], Ph. Attender: Jeanette Gross [facility] - [facility] 06/11/2020 12:00:00 AM EDT ATHE NA ([facility]) Jeanette Gross, FOREST RESOURCE SPECIALIST: [address], [address], [place] [address], Ph. Attender: Jeanette Gross [facility] - [facility] 06/11/2020 12:00:00 AM EDT ATHE NA ([facility]) Jeanette Gross, FOREST RESOURCE SPECIALIST: [address], [address], [place] [address], Ph. Attender: Jeanette Gross [facility] - [facility] 06/11/2020 12:00:00 AM EDT ATHE NA ([facility]) Jeanette Gross, FOREST RESOURCE SPECIALIST: [address], [place] [address], Ph. Attender: Jeanette Gross [facility] - [facility] 06/11/2020 12:00:00 AM EDT ATHE NA ([facility]) Jeanette Gross, FOREST RESOURCE SPECIALIST: [address], [place] [address], Ph. Attender: Jeanette Gross [facility] - [facility] 06/11/2020 12:00:00 AM EDT ATHE NA ([facility]) Jeanette Gross, FOREST RESOURCE SPECIALIST: [address], [place] [address], Ph. Attender: Jeanette Gross [facility] - [facility] 06/11/2020 12:00:00 AM EDT ATHE NA ([facility]) Jeanette Gross, FOREST RESOURCE SPECIALIST: [address], [place] [address], Ph. Attender: Jeanette Gross [facility] - [facility] 06/11/2020 12:00:00 AM EDT ATHE NA ([facility]) Jeanette Gross, FOREST RESOURCE SPECIALIST: [address], [place] [address], Ph. Attender: Jeanette Gross [facility] - [facility] 06/11/2020 12:00:00 AM EDT ATHE NA ([facility]) Jeanette Gross, FOREST RESOURCE SPECIALIST: [address], [address], [place] [address], Ph. Attender: Jeanette Gross [facility] - [facility] 06/11/2020 12:00:00 AM EDT ATHE NA ([facility]) Jeanette Gross, FOREST RESOURCE SPECIALIST: [address], [address], [place] [address], Ph. Attender: Jeanette Gross [facility] - [facility] 06/11/2020 12:00:00 AM EDT ATHE NA ([facility]) Jeanette Gross, FOREST RESOURCE SPECIALIST: [address], [place] [address], Ph. Attender: Jeanette Gross [facility] - [facility] 06/11/2020 12:00:00 AM EDT ATHE NA ([facility]) Jeanette Gross, FOREST RESOURCE SPECIALIST: [address], [address], [place] [address], Ph. Attender: Jeanette Gross [facility] - [facility] 06/11/2020 12:00:00 AM EDT ATHE NA ([facility]) Jeanette Gross, FOREST RESOURCE SPECIALIST: [address], [address], [place] [address], Ph. Attender: Jeanette Gross [facility] - [facility] 06/11/2020 12:00:00 AM EDT ATHE NA ([facility]) Jeanette Gross, FOREST RESOURCE SPECIALIST: [address], [address], [place] [address], Ph. Attender: Jeanettesheri Gross [facility] - [facility] 06/11/2020 12:00:00 AM EDT ATHE NA ([facility]) Jeanette Gross, FOREST RESOURCE SPECIALIST: [address], [place] [address], Ph. Attender: Jeanette Grsos [facility] - [facility] 06/11/2020 12:00:00 AM EDT ATHE NA ([facility]) Jeanette Gross, FOREST RESOURCE SPECIALIST: [address], [place] [address], Ph. Attender: Jeanette Gross [facility] - [facility] 06/11/2020 12:00:00 AM EDT ATHE NA ([facility]) Jeanette Gross, FOREST RESOURCE SPECIALIST: [address], [place] [address], Ph. Attender: Jeanette Gross [facility] - [facility] 06/11/2020 12:00:00 AM EDT ATHE NA ([facility]) Jeanette Gross, FOREST RESOURCE SPECIALIST: [address], [place] [address], Ph. Attender: Jeanette Gross [facility] - [facility] 06/11/2020 12:00:00 AM EDT ATHE NA ([facility]) Jeanette Gross, FOREST RESOURCE SPECIALIST: [address], [place] [address], Ph. Attender: Jeanette Gross [facility] - [facility] 06/11/2020 12:00:00 AM EDT ATHE NA ([facility]) Jeanette Allanclarkemitch Gross, FOREST RESOURCE SPECIALIST: [address], [place] [address], Ph. Attender: Jeanette Gross [facility] - [facility] 06/11/2020 12:00:00 AM EDT ATHE NA ([facility]) Jeanette Gross, FOREST RESOURCE SPECIALIST: [address], [place] [address], Ph. Attender: Jeanette Gross [facility] - [facility] 06/11/2020 12:00:00 AM EDT ATHE NA ([facility]) Jeanette Gross, FOREST RESOURCE SPECIALIST: [address], [place] [address], Ph. Attender: Jeanette Gross [facility] 06/11/2020 12:00:00 AM EDT ATHE NA ([facility]) Jeanette Gross, FOREST RESOURCE SPECIALIST: [address]69 [address], [place] [address], Ph. Attender: Jeanette Gross [facility] 06/11/2020 12:00:00 AM EDT ATHE NA ([facility]) Jeanette Gross, FOREST RESOURCE SPECIALIST: [address]46 [address], [place] [address], Ph. Attender: Jeanette Gross [facility] - [facility] 06/11/2020 12:00:00 AM EDT ATHE NA ([facility]) Jeanette Gross, FOREST RESOURCE SPECIALIST: [address], [place] [address], Ph. Attender: Jeanette Gross [facility] 06/11/2020 12:00:00 AM EDT ATHE NA ([facility]) Jeanette Gross, FOREST RESOURCE SPECIALIST: [address], [address], [place] [address], Ph. Attender: Jeanette Gross [facility] - [facility] 06/11/2020 12:00:00 AM EDT ATHE NA ([facility]) Jeanette Gross, FOREST RESOURCE SPECIALIST: [address], [address], [place] [address], Ph. Attender: Jeanette Gross [facility] - [facility] 06/11/2020 12:00:00 AM EDT ATHE NA ([facility]) Jeanette Gross, FOREST RESOURCE SPECIALIST: [address], [address], [place] [address], Ph. Attender: Jeanette Gross [facility] - [facility] 06/11/2020 12:00:00 AM EDT ATHE NA ([facility]) Kj Rodriguez MD: [address]9216 [address], [address], [place] [address], Ph. Attender: Kj SHEEHAN - [facility] 05/21/2020 12:00:00 AM EDT AUGUSTIN ([facility]) Kj Rodriguez MD: 07141 [address], [address], [place] [address], Ph. Attender: Kj SHEEHAN - [facility] 05/21/2020 12:00:00 AM EDT AUGUSTIN ([facility]) Kj Rodriguez MD: [address]4517 [address], [address], [place] [address], Ph. Attender: Kj SHEEHAN - [facility] 05/21/2020 12:00:00 AM EDT AUGUSTIN ([facility]) Kj Rodriguez MD: [address]1298 [address], [address], [place] [address], Ph. Attender: Kj SHEEHAN - [facility] 05/21/2020 12:00:00 AM EDT AUGUSTIN ([facility]) Kj Rodriguez MD: 01255 [address], [address], [place] [address], Ph. Attender: Kj SHEEHAN - [facility] 05/21/2020 12:00:00 AM EDT AUGUSTIN ([facility]) Kj Rodriguez MD: 94883 [address], [address], [place] [address], Ph. Attender: Kj SHEEHAN - [facility] 05/21/2020 12:00:00 AM EDT AUGUSTIN ([facility]) Kj Rodriguez MD: 43745 [address], [address], [place] [address], Ph. Attender: Kj SHEEHAN - [facility] 05/21/2020 12:00:00 AM EDT AUGUSTIN ([facility]) Kj Rodriguez MD: 01446 [address], [address], [place] [address], Ph. Attender: Kj SHEEHAN - [facility] 05/21/2020 12:00:00 AM EDT AUGUSTIN ([facility]) Kj Rodriguez MD: 61491 [address], [address], [place] [address], Ph. Attender: Kj SHEEHAN - [facility] 05/21/2020 12:00:00 AM EDT AUGUSTIN ([facility]) Kj Rodriguez MD: 46182 [address], [address], [place] [address], Ph. Attender: Kj Rodriguez MD [place] - [facility] 05/21/2020 12:00:00 AM EDT AUGUSTIN ([facility]) Kj Rodriguez MD: 60646 [address], [address], [place] [address], Ph. Attender: Kj Rodriguez MD [place] - [facility] 05/21/2020 12:00:00 AM EDT AUGUSTIN ([facility]) Kj Rodriguez MD: 58891 [address], [address], [place] [address], Ph. Attender: Kj Rodriguez MD [place] - [facility] 05/21/2020 12:00:00 AM EDT AUGUSTIN ([facility]) Kj Rodriguez MD: 42884 [address], [address], [place] [address], Ph. Attender: Kj SHEEHAN - [facility] 05/21/2020 12:00:00 AM EDT AUGUSTIN ([facility]) Kj Rodriguez MD: 37777 [address], [address], [place] [address], Ph. Attender: Kj Rodriguez MD [place] - [facility] 05/21/2020 12:00:00 AM EDT AUGUSTIN ([facility]) Kj Rodriguez MD: 18793 [address], [address], [place] [address], Ph. Attender: Kj Rodriguez MD [place] - [facility] 05/21/2020 12:00:00 AM EDT AUGUSTIN ([facility]) Kj Rodriguez MD: 77795 [address], [address], [place] [address], Ph. Attender: Kj SHEEHAN - [facility] 05/21/2020 12:00:00 AM EDT AUGUSTIN ([facility]) Kj Rodriguez MD: 43986 [address], [address], [place] [address], Ph. Attender: Kj SHEEHAN - [facility] 05/21/2020 12:00:00 AM EDT AUGUSTIN ([facility]) Kj Rodriguez MD: 41846 [address], [address], [place] [address], Ph. Attender: Kj SHEEHAN - [facility] 05/21/2020 12:00:00 AM EDT AUGUSTIN ([facility]) Kj Rodriguez MD: 18087 [address], [address], [place] [address], Ph. Attender: Kj SHEEHAN - [facility] 05/21/2020 12:00:00 AM EDT AUGUSTIN ([facility]) Kj Rodriguez MD: 33005 [address], [address], [place] [address], Ph. Attender: Kj SHEEHAN - [facility] 05/21/2020 12:00:00 AM EDT AUGUSTIN ([facility]) Kj Rodriguez MD: 09733 [address], [address], [place] [address], Ph. Attender: Kj SHEEHAN - [facility] 05/21/2020 12:00:00 AM EDT AUGUSTIN ([facility]) Kj Rodriguez MD: 19549 [address], [address], [place] [address], Ph. Attender: Kj SHEEHAN - [facility] 05/21/2020 12:00:00 AM EDT AUGUSTIN ([facility]) Kj Rodriguez MD: 90969 [address], [address], [place] [address], Ph. Attender: Kj SHEEHAN - [facility] 05/21/2020 12:00:00 AM EDT AUGUSTIN ([facility]) Kj Rodriguez MD: 01151 [address], [address], [place] [address], Ph. Attender: Kj Rodriguez MD DC - [facility] 05/21/2020 12:00:00 AM EDT AUGSUTIN ([facility]) Kj Rodriguez MD: 77099 [address], [address], [place] [address], Ph. Attender: Kj SHEEHAN - [facility] 05/21/2020 12:00:00 AM EDT AUGUSTIN ([facility]) Kj Rodriguez MD: 19591 [address], [address], [place] [address], Ph. Attender: Kj SHEEHAN - [facility] 05/21/2020 12:00:00 AM EDT AUGUSTIN ([facility]) Kj Rodriguez MD: 55114 [address], [address], [place] [address], Ph. Attender: Kj SHEEHAN - [facility] 05/21/2020 12:00:00 AM EDT AUGUSTIN ([facility]) Kj Rodriguez MD: 76398 [address], [place] [address], Ph. Attender: Kj Rodriguez MD [place] - [facility] 05/21/2020 12:00:00 AM EDT AUGUSTIN ([facility]) Kj Rodriguez MD: 58546 [address], [address], [place] [address], Ph. Attender: Kj Rodriguez MD [place] - [facility] 05/21/2020 12:00:00 AM EDT AUGUSTIN ([facility]) Kj Rodriguez MD: 10819 [address], [facility] [place] [address], Ph. Attender: Kj Rodriguez MD DC - [facility] 05/21/2020 12:00:00 AM EDT AUGUSTIN ([facility]) Jeanette Gross, FOREST RESOURCE SPECIALIST: [address]56 [address], [place] [address], Ph. Attender: Jeanette Gross [facility] 05/15/2020 12:00:00 AM EDT LYSSA DIGGS ([facility]) Jeanette Gross, FOREST RESOURCE SPECIALIST: [address], [address], [place] [address], Ph. Attender: Jeanette Gross [facility] 05/15/2020 12:00:00 AM EDT LYSSA DIGGS ([facility]) Jeanette Gross, FOREST RESOURCE SPECIALIST: [address]158 [address], [place] [address], Ph. Attender: Jeanette Gross [facility] - [facility] 05/15/2020 12:00:00 AM EDT ATHE NA ([facility]) Jeanette Gross, FOREST RESOURCE SPECIALIST: [address]152 [address], [place] [address], Ph. Attender: Jeanette Gross [facility] - [facility] 05/15/2020 12:00:00 AM EDT ATHE NA ([facility]) Jeanette Gross, FOREST RESOURCE SPECIALIST: [address]456 [address], [place] [address], Ph. Attender: Jeanette Gross [facility] - [facility] 05/15/2020 12:00:00 AM EDT ATHE NA ([facility]) Jeanette Gross, FOREST RESOURCE SPECIALIST: 57017 [address], [place] [address], Ph. Attender: Jeanette Gross [facility] - [facility] 05/15/2020 12:00:00 AM EDT ATHE NA ([facility]) Jeanette Gross, FOREST RESOURCE SPECIALIST: [address]17 [address], [place] [address], Ph. Attender: Jeanette Gross [facility] 05/15/2020 12:00:00 AM EDT ATHE NA ([facility]) Jeanette Gross, FOREST RESOURCE SPECIALIST: 18538 [address], [place] [address], Ph. Attender: Jeanette Gross [facility] - [facility] 05/15/2020 12:00:00 AM EDT ATHE NA ([facility]) Jeanette Allanafshaneder Gross, FOREST RESOURCE SPECIALIST: [address]87 [address], [address], [place] [address], Ph. Attender: Jeanette Gross [facility] - [facility] 05/15/2020 12:00:00 AM EDT ATHE NA ([facility]) Jeanette Gross, FOREST RESOURCE SPECIALIST: [address]82 [address], [place] [address], Ph. Attender: Jeanette Gross [facility] - [facility] 05/15/2020 12:00:00 AM EDT ATHE NA (Pain [facility]) Jeanette Gross, FOREST RESOURCE SPECIALIST: [address], [place] [address], Ph. Attender: Jeanette Gross [facility] 05/15/2020 12:00:00 AM EDT ATHE NA ([facility]) Jeanette Gross, FOREST RESOURCE SPECIALIST: [address], [place] [address], Ph. Attender: Jeanette Gross [facility] - [facility] 05/15/2020 12:00:00 AM EDT ATHE NA ([facility]) Jeanette Gross, FOREST RESOURCE SPECIALIST: [address], [address], [place] [address], Ph. Attender: Jeanette Gross [facility] - [facility] 05/15/2020 12:00:00 AM EDT ATHE NA ([facility]) Jeanette Gross, FOREST RESOURCE SPECIALIST: [address], [place] [address], Ph. Attender: Jeanette Gross [facility] - [facility] 05/15/2020 12:00:00 AM EDT ATHE NA ([facility]) Jeanette Gross, FOREST RESOURCE SPECIALIST: [address], [place] [address], Ph. Attender: Jeanette Gross [facility] - [facility] 05/15/2020 12:00:00 AM EDT ATHE NA ([facility]) Jeanette Gross, FOREST RESOURCE SPECIALIST: [address], [place] [address], Ph. Attender: Jeanette Gross [facility] - [facility] 05/15/2020 12:00:00 AM EDT ATHE NA ([facility]) Jeanette Gross, FOREST RESOURCE SPECIALIST: [address], [place] [address], Ph. Attender: Jeanette Gross [facility] - [facility] 05/15/2020 12:00:00 AM EDT ATHE NA ([facility]) Jeanette Gross, FOREST RESOURCE SPECIALIST: [address], [place] [address], Ph. Attender: Jeanette Gross [facility] - [facility] 05/15/2020 12:00:00 AM EDT ATHE NA ([facility]) Jeanette Gross, FOREST RESOURCE SPECIALIST: [address], [place] [address], Ph. Attender: Jeanette Gross [facility] - [facility] 05/15/2020 12:00:00 AM EDT ATHE NA ([facility]) Jeanette Gross, FOREST RESOURCE SPECIALIST: [address], [place] [address], Ph. Attender: Jeanette Gross [facility] - [facility] 05/15/2020 12:00:00 AM EDT ATHE NA ([facility]) Jeanette Gross, FOREST RESOURCE SPECIALIST: [address], [place] [address], Ph. Attender: Jeanette Gross [facility] - [facility] 05/15/2020 12:00:00 AM EDT ATHE NA ([facility]) Jeanette Gross, FOREST RESOURCE SPECIALIST: [address], [place] [address], Ph. Attender: Jeanette Gross [facility] - [facility] 05/15/2020 12:00:00 AM EDT ATHE NA ([facility]) Jeanette Gross, FOREST RESOURCE SPECIALIST: [address], [place] [address], Ph. Attender: Jeanette Gross [facility] - [facility] 05/15/2020 12:00:00 AM EDT ATHE NA ([facility]) Jeanette Gross, FOREST RESOURCE SPECIALIST: [address], [place] [address], Ph. Attender: Jeanette Gross [facility] - [facility] 05/15/2020 12:00:00 AM EDT ATHE NA ([facility]) Jeanette Gross, FOREST RESOURCE SPECIALIST: [address], [place] [address], Ph. Attender: Jeanette Gross [facility] - [facility] 05/15/2020 12:00:00 AM EDT ATHE NA ([facility]) Jeanette Gross, FOREST RESOURCE SPECIALIST: [address], [address], [place] [address], Ph. Attender: Jeanette Gross [facility] - [facility] 05/15/2020 12:00:00 AM EDT ATHE NA ([facility]) Jeanette Gross, FOREST RESOURCE SPECIALIST: [address], [address], [place] [address], Ph. Attender: Jeanette Gross [facility] - [facility] 05/15/2020 12:00:00 AM EDT ATHE NA ([facility]) Jeanette Gross, FOREST RESOURCE SPECIALIST: [address], [place] [address], Ph. Attender: Jeanette Gross [facility] - [facility] 05/15/2020 12:00:00 AM EDT ATHE NA ([facility]) Jeanette Gross, FOREST RESOURCE SPECIALIST: [address], [place] [address], Ph. Attender: Jeanette Gross [facility] - [facility] 05/15/2020 12:00:00 AM EDT ATHE NA ([facility]) Jeanette Gross, FOREST RESOURCE SPECIALIST: [address], [address], [place] [address], Ph. Attender: Jeanette Gross [facility] - [facility] 05/15/2020 12:00:00 AM EDT ATHE NA ([facility]) Jeanette Gross, FOREST RESOURCE SPECIALIST: [address], [place] [address], Ph. Attender: Jeanettemichelle Mayeselhamvasile [facility] - [facility] 05/15/2020 12:00:00 AM EDT ATHE NA ([facility]) Immunizations Vaccine Date Status Description Data Source(s) COVID-19, mRNA, LNP-S, PF, 100 mcg/0.5 mL dose 02/03/2021 06 :15:03 PM EDT completed .5 mL [place] ([facility]) COVID-19 dose #2 given elsewhere Unspecified 02/03/2021 01:4 5:00 PM EDT completed eCW1 ([facility]) COVID-19 VACCINE Moderna 02/03/2021 12:00:00 AM EDT completed [facility] Vaccine Series Complete: YESThis Data wa s Submitted to [facility] Via [employer]. COVID-19, mRNA, LNP-S, PF, 100 mcg/0.5 mL dose 01/06/2021 06 :21:51 PM EDT completed .5 mL [place] ([facility]) COVID-19, mRNA, LNP-S, PF, 100 mcg/0.5 mL dose 01/06/2021 06 :21:51 PM EDT completed .5 mL [place] ([facility]) COVID-19 dose #1 given elsewhere Unspecified 01/06/2021 01:4 4:00 PM EDT completed eCW1 ([facility]) COVID-19 VACCINE Moderna 01/06/2021 12:00:00 AM EDT completed [facility] Vaccine Series Complete: NOThis Data was Submitted to [facility] Via [employer]. influenza, recombinant, quadrIvalent,injectable, prese rvative free 10/23/2020 02:34:00 PM EST completed eCW1 ([facility], 1928[facility]1983) influenza, recombinant, quadrIvalent,injectable, prese rvative free 10/23/2020 02:34:00 PM EST completed eCW1 ([facility], [facility]) influenza, recombinant, quadrIvalent,injectable, prese rvative free 10/23/2020 02:34:00 PM EST completed eCW1 ([facility], [facility]) influenza, recombinant, quadrIvalent,injectable, prese rvative free 10/23/2020 02:34:00 PM EST completed eCW1 ([facility], [facility]) influenza, recombinant, quadrIvalent,injectable, prese rvative free 10/23/2020 02:34:00 PM EST completed eCW1 ([facility], [facility]) Medications Medication Brand Name Start Date Product Form Dose Route Admi nistrative Instructions Pharmacy Instructions Status Indications Reaction Description Data Source(s) 500 mg 06/15/2021 12:00:00 AM EDT tablet 60 TAKE ONE TABLET BY MOUTH TWICE A DAY NEEDED TAKE ONE TABLET BY MOUTH TWICE A DAY NEEDED SOLD: 06/15/2021 [facility] 50 mg 05/27/2021 12:00:00 AM EDT tablet 90 TAKE ONE TABLET BY MOUTH THREE TIMES A DAY NEEDED MAXIMUM DAILY DOSE = 3 TABLETS TAKE ONE TABLET BY MOUTH THREE TIMES A DAY NEEDED MAXIMUM DAILY DOSE = 3 TABLETS SOLD: 05/27/2021 [facility] gabapentin 800 MG Oral Tablet GABAPENTIN 05/27/2021 12:00:00 AM EDT ta blet 90 TAKE ONE TABLET BY MOUTH THREE TIMES A DAY TAKE ONE TABLET BY MOUTH THREE TIMES A DAY SOLD: 05/27/2021 [facility] 800 mg 05/07/2021 12:00:00 AM EDT tablet 45 TAKE ONE TABLET BY MOUTH THREE TIMES A DAY NEEDED TAKE ONE TABLET BY MOUTH THREE TIMES A DAY NEEDED S OLD: 05/07/2021 [facility] 750 mg 05/07/2021 12:00:00 AM EDT tablet 90 TAKE ONE TABLET BY MOUTH THREE TIMES A DAY NEEDED TAKE ONE TABLET BY MOUTH THREE TIMES A DAY NEEDED S OLD: 05/07/2021 [facility] 40 mg 04/20/2021 12:00:00 AM EDT capsule,delayed release (DR/EC) 30 TAKE ONE CAPSULE BY MOUTH EVERY DAY 30 MINUTES BEFORE MORNING MEAL TAKE ONE CAPSULE BY MOUTH EVERY DAY 30 MINUTES BEFORE MORNING MEAL SOLD: 06/21/2021 [facility] 40 mg 04/20/2021 12:00:00 AM EDT capsule,delayed release (DR/EC) 30 TAKE ONE CAPSULE BY MOUTH EVERY DAY 30 MINUTES BEFORE MORNING MEAL TAKE ONE CAPSULE BY MOUTH EVERY DAY 30 MINUTES BEFORE MORNING MEAL SOLD: 05/27/2021 [facility] 40 mg 04/20/2021 12:00:00 AM EDT capsule,delayed release (DR/EC) 30 TAKE ONE CAPSULE BY MOUTH EVERY DAY 30 MINUTES BEFORE MORNING MEAL TAKE ONE CAPSULE BY MOUTH EVERY DAY 30 MINUTES BEFORE MORNING MEAL SOLD: 04/20/2021 [facility] 150 mg 04/20/2021 12:00:00 AM EDT tablet 2 TAKE ONE TABLET BY MOUTH TODAY AND REPEAT IN 10 DAYS TAKE ONE TABLET BY MOUTH TODAY AND REPEAT IN 10 DAYS S OLD: 04/20/2021 [facility] Amoxicillin 500 MG / Clavulanate 125 MG Oral Tablet 50 0-125 mg AMOXICILLIN/POTASSIUM CLAV 04/20/2021 12:00:00 AM EDT tablet 20 TAKE ONE TABLET BY MOUTH TWICE A DAY FOR 10 DAYS TAKE ONE TABLET BY MOUTH TWICE A DAY FOR 10 DAYS SOLD: 04/20/2021 [facility] 90 mcg/actuation 04/20/2021 12:00:00 AM EDT HFA aerosol inha ler 8 INHALE TWO PUFFS BY MOUTH EVERY 4 HOURS NEEDED FOR COUGH INHALE TWO PUFFS BY MOUTH EVERY 4 HOURS NEEDED FOR COUGH SOLD: 04/20/2021 [facility] Fluconazole 150 MG Oral Tablet Fluconazole 150 MG 04/20/2021 12:00: 00 AM EDT 1.0 {tablet} active Fluconazole 150 MG eCW1 ([facility]) Amoxicillin 500 MG / Clavulanate 125 MG Oral Tablet Amoxicillin-Pot Clavulanate 500-125 MG Amoxicillin-Pot Clavulanate 500-125 MG 04/20/2021 12:00:00 AM ED T 1.0 {tablet} active Amoxicillin-Pot Cla vulanate 500-125 MG eCW1 ([facility]) 50 mg 04/17/2021 12:00:00 AM EDT tablet 90 TAKE ONE TABLET BY MOUTH THREE TIMES A DAY NEEDED MAXIMUM DAILY DOSE = 3 TAKE ONE TABLET BY MOUTH THREE TIMES A DAY NEEDED MAXIMUM DAILY DOSE = 3 SOLD: 04/17/2021 [facility] gabapentin 800 MG Oral Tablet GABAPENTIN 04/17/2021 12:00:00 AM EDT ta blet 90 TAKE ONE TABLET BY MOUTH THREE TIMES A DAY TAKE ONE TABLET BY MOUTH THREE TIMES A DAY SOLD: 04/17/2021 [facility] gabapentin 800 MG Oral Tablet GABAPENTIN 03/16/2021 12:00:00 AM EDT ta blet 90 TAKE ONE TABLET BY MOUTH THREE TIMES A DAY TAKE ONE TABLET BY MOUTH THREE TIMES A DAY SOLD: 03/16/2021 [facility] 50 mg 03/02/2021 12:00:00 AM EDT tablet 90 TAKE ONE TABLET BY MOUTH THREE TIMES A DAY NEEDED MAXIMUM DAILY DOSE = 3 TABLETS TAKE ONE TABLET BY MOUTH THREE TIMES A DAY NEEDED MAXIMUM DAILY DOSE = 3 TABLETS SOLD: 03/03/2021 [facility] 10 mg 02/11/2021 12:00:00 AM EDT tablet 90 TAKE ONE TABLET BY MOUTH THREE TIMES A DAY NEEDED TAKE ONE TABLET BY MOUTH THREE TIMES A DAY NEEDED S OLD: 02/11/2021 [facility] 800 mg 02/11/2021 12:00:00 AM EDT tablet 45 TAKE ONE TABLET BY MOUTH THREE TIMES A DAY NEEDED TAKE ONE TABLET BY MOUTH THREE TIMES A DAY NEEDED S OLD: 02/11/2021 [facility] 0.5 % 01/08/2021 12:00:00 AM EDT drops 5 INSTILL 1 DROP IN EACH EYE TWO TIMES A DAY INSTILL 1 DROP IN EACH EYE TWO TIMES A DAY SOLD: 01/12/2021 [facility] gabapentin 800 MG Oral Tablet GABAPENTIN 01/07/2021 12:00:00 AM EDT ta blet 90 TAKE ONE TABLET BY MOUTH THREE TIMES A DAY TAKE ONE TABLET BY MOUTH THREE TIMES A DAY SOLD: 01/07/2021 [facility] 50 mg 12/24/2020 12:00:00 AM EDT tablet 120 TAKE ONE TABLET BY MOUTH FOUR TIMES A DAY NEEDED MAXIMUM DAILY DOSE = 4 TABLETS TAKE ONE TABLET BY MOUTH FOUR TIMES A DAY NEEDED MAXIMUM DAILY DOSE = 4 TABLETS SOLD: 12/24/2020 [facility] 800 mg 12/24/2020 12:00:00 AM EDT tablet 45 TAKE ONE TABLET BY MOUTH THREE TIMES A DAY NEEDED TAKE ONE TABLET BY MOUTH THREE TIMES A DAY NEEDED S OLD: 12/24/2020 [facility] 0.005 % 12/19/2020 12:00:00 AM EDT drops 2 INSTILL 1 DROP IN BOTH EYES AT NIGHT INSTILL 1 DROP IN BOTH EYES AT NIGHT SOLD: 12/19/2020 [facility] 0.5 % 12/19/2020 12:00:00 AM EDT drops 5 INSTILL 1 DROP INTO BOTH EYES ONCE A DAY INSTILL 1 DROP INTO BOTH EYES ONCE A DAY SOLD: 12/19/2020 [facility] gabapentin 800 MG Oral Tablet GABAPENTIN 11/21/2020 12:00:00 AM EST ta blet 90 TAKE ONE TABLET BY MOUTH THREE TIMES A DAY TAKE ONE TABLET BY MOUTH THREE TIMES A DAY SOLD: 11/21/2020 [facility] 750 mg 11/21/2020 12:00:00 AM EST tablet 90 TAKE ONE TABLET BY MOUTH THREE TIMES A DAY NEEDED TAKE ONE TABLET BY MOUTH THREE TIMES A DAY NEEDED S OLD: 01/22/2021 [facility] 750 mg 11/21/2020 12:00:00 AM EST tablet 90 TAKE ONE TABLET BY MOUTH THREE TIMES A DAY NEEDED TAKE ONE TABLET BY MOUTH THREE TIMES A DAY NEEDED S OLD: 11/21/2020 [facility] 800 mg 11/11/2020 12:00:00 AM EST tablet 45 TAKE ONE TABLET BY MOUTH THREE TIMES A DAY NEEDED TAKE ONE TABLET BY MOUTH THREE TIMES A DAY NEEDED S OLD: 11/11/2020 [facility] 50 mg 11/11/2020 12:00:00 AM EST tablet 100 TAKE ONE TABLET BY MOUTH FOUR TIMES A DAY NEEDED MAXIMUM DAILY DOSE = 4 TABLETS TAKE ONE TABLET BY MOUTH FOUR TIMES A DAY NEEDED MAXIMUM DAILY DOSE = 4 TABLETS SOLD: 11/11/2020 [facility] 750 mg 10/08/2020 12:00:00 AM EST tablet 90 TAKE ONE TABLET BY MOUTH THREE TIMES A DAY NEEDED TAKE ONE TABLET BY MOUTH THREE TIMES A DAY NEEDED S OLD: 10/08/2020 [facility] gabapentin 800 MG Oral Tablet GABAPENTIN 10/08/2020 12:00:00 AM EST ta blet 90 TAKE ONE TABLET BY MOUTH THREE TIMES A DAY TAKE ONE TABLET BY MOUTH THREE TIMES A DAY SOLD: 10/08/2020 [facility] 50 mg 09/25/2020 12:00:00 AM EST tablet 100 TAKE ONE TABLET BY MOUTH FOUR TIMES A DAY NEEDED MAXIMUM DAILY DOSE = 4 TAKE ONE TABLET BY MOUTH FOUR TIMES A DAY NEEDED MAXIMUM DAILY DOSE = 4 SOLD: 09/25/2020 [facility] 0.005 % 09/18/2020 12:00:00 AM EST drops 2 INSTILL 1 DROP INTO BOTH EYES ONCE EVERY NIGHT INSTILL 1 DROP INTO BOTH EYES ONCE EVERY NIGHT SOLD: 1 11/19/2019 [facility] 0.2 % 09/18/2020 12:00:00 AM EST drops 5 INSTILL 1 DROP INTO BOTH EYES TWICE A DAY INSTILL 1 DROP INTO BOTH EYES TWICE A DAY SOLD: 09/18/2020 [facility] 50 mg 09/09/2020 12:00:00 AM EST capsule 60 TAKE ONE CAPSULE BY MOUTH TWICE A DAY TAKE ONE CAPSULE BY MOUTH TWICE A DAY SOLD: 09/09/2020 [facility] zonisamide 50 MG Oral Capsule Zonisamide 09/08/2020 12:00:00 AM EST ORAL active MEDENT ([facility], ) 10 mg 08/28/2020 12:00:00 AM EST tablet 90 TAKE ONE TABLET BY MOUTH THREE TIMES A DAY NEEDED TAKE ONE TABLET BY MOUTH THREE TIMES A DAY NEEDED S OLD: 08/28/2020 [facility] 800 mg 08/28/2020 12:00:00 AM EST tablet 45 TAKE ONE TABLET BY MOUTH THREE TIMES A DAY NEEDED TAKE ONE TABLET BY MOUTH THREE TIMES A DAY NEEDED S OLD: 08/28/2020 [facility] gabapentin 800 MG Oral Tablet GABAPENTIN 08/28/2020 12:00:00 AM EST ta blet 90 TAKE ONE TABLET BY MOUTH THREE TIMES A DAY TAKE ONE TABLET BY MOUTH THREE TIMES A DAY SOLD: 08/28/2020 [facility] 50 mg 08/08/2020 12:00:00 AM EST tablet 100 TAKE ONE TABLET BY MOUTH FOUR TIMES A DAY NEEDED MAXIMUM DAILY DOSE = 4 TAKE ONE TABLET BY MOUTH FOUR TIMES A DAY NEEDED MAXIMUM DAILY DOSE = 4 SOLD: 08/08/2020 [facility] 1 mg 07/25/2020 12:00:00 AM EDT tablet 2 TAKE 1 TABLET BY MOUTH 1 HOUR AND THEN 10MINUTES BEFORE TEST IF NECESSARY, MAXIMUM DAILY DOSE = 2 TAKE 1 TABLET BY MOUTH 1 HOUR AND THEN 10MINUTES BEFORE TEST IF NECESSARY, MAXIMUM DAILY DOSE = 2 SOLD: 07/25/2020 [facility] 40 mg 07/12/2020 12:00:00 AM EDT capsule,delayed release (DR/EC) 30 TAKE 1 CAPSULE BY MOUTH 30 MINUTES BEFORE MORNING MEAL ONCE A DAY TAKE 1 CAPSULE BY MOUTH 30 MINUTES BEFORE MORNING MEAL ONCE A DAY SOLD: 10/15/2020 [facility] 40 mg 07/12/2020 12:00:00 AM EDT capsule,delayed release (DR/EC) 30 TAKE 1 CAPSULE BY MOUTH 30 MINUTES BEFORE MORNING MEAL ONCE A DAY TAKE 1 CAPSULE BY MOUTH 30 MINUTES BEFORE MORNING MEAL ONCE A DAY SOLD: 11/14/2020 [facility] 40 mg 07/12/2020 12:00:00 AM EDT capsule,delayed release (DR/EC) 30 TAKE 1 CAPSULE BY MOUTH 30 MINUTES BEFORE MORNING MEAL ONCE A DAY TAKE 1 CAPSULE BY MOUTH 30 MINUTES BEFORE MORNING MEAL ONCE A DAY SOLD: 12/17/2020 [facility] 40 mg 07/12/2020 12:00:00 AM EDT capsule,delayed release (DR/EC) 30 TAKE 1 CAPSULE BY MOUTH 30 MINUTES BEFORE MORNING MEAL ONCE A DAY TAKE 1 CAPSULE BY MOUTH 30 MINUTES BEFORE MORNING MEAL ONCE A DAY SOLD: 07/12/2020 [facility] 40 mg 07/12/2020 12:00:00 AM EDT capsule,delayed release (DR/EC) 30 TAKE 1 CAPSULE BY MOUTH 30 MINUTES BEFORE MORNING MEAL ONCE A DAY TAKE 1 CAPSULE BY MOUTH 30 MINUTES BEFORE MORNING MEAL ONCE A DAY SOLD: 08/15/2020 [facility] 40 mg 07/12/2020 12:00:00 AM EDT capsule,delayed release (DR/EC) 30 TAKE 1 CAPSULE BY MOUTH 30 MINUTES BEFORE MORNING MEAL ONCE A DAY TAKE 1 CAPSULE BY MOUTH 30 MINUTES BEFORE MORNING MEAL ONCE A DAY SOLD: 09/12/2020 [facility] gabapentin 800 MG Oral Tablet GABAPENTIN 07/09/2020 12:00:00 AM EDT ta blet 90 TAKE ONE TABLET BY MOUTH THREE TIMES A DAY TAKE ONE TABLET BY MOUTH THREE TIMES A DAY SOLD: 07/11/2020 [facility] 10 mg 07/09/2020 12:00:00 AM EDT tablet 90 TAKE ONE TABLET BY MOUTH THREE TIMES A DAY NEEDED TAKE ONE TABLET BY MOUTH THREE TIMES A DAY NEEDED S OLD: 07/11/2020 [facility] 50 mg 06/24/2020 12:00:00 AM EDT tablet 100 TAKE ONE TABLET BY MOUTH FOUR TIMES A DAY NEEDED MAXIMUM DAILY DOSE = 4 TAKE ONE TABLET BY MOUTH FOUR TIMES A DAY NEEDED MAXIMUM DAILY DOSE = 4 SOLD: 06/24/2020 [facility] 10 mg 06/07/2020 12:00:00 AM EDT tablet 90 TAKE ONE TABLET BY MOUTH THREE TIMES A DAY NEEDED TAKE ONE TABLET BY MOUTH THREE TIMES A DAY NEEDED S OLD: 06/08/2020 [facility] gabapentin 800 MG Oral Tablet GABAPENTIN 06/07/2020 12:00:00 AM EDT ta blet 90 TAKE ONE TABLET BY MOUTH THREE TIMES A DAY TAKE ONE TABLET BY MOUTH THREE TIMES A DAY SOLD: 06/08/2020 [facility] 500 mg 06/07/2020 12:00:00 AM EDT tablet 60 TAKE ONE TABLET BY MOUTH TWICE A DAY TAKE ONE TABLET BY MOUTH TWICE A DAY SOLD: 06/08/2020 [facility] 50 mg 05/20/2020 12:00:00 AM EDT tablet 100 TAKE ONE TABLET BY MOUTH FOUR TIMES A DAY NEEDED MAXIMUM DAILY DOSE = 4 TAKE ONE TABLET BY MOUTH FOUR TIMES A DAY NEEDED MAXIMUM DAILY DOSE = 4 SOLD: 05/20/2020 [facility] 40 mg 2020 12:00:00 AM EDT capsule,delayed release (DR/EC) 30 TAKE ONE CAPSULE BY MOUTH EVERY DAY 30 MINUTES BEFORE MORNING MEAL TAKE ONE CAPSULE BY MOUTH EVERY DAY 30 MINUTES BEFORE MORNING MEAL SOLD: 06/16/2020 [facility] 40 mg 2020 12:00:00 AM EDT capsule,delayed release (DR/EC) 30 TAKE ONE CAPSULE BY MOUTH EVERY DAY 30 MINUTES BEFORE MORNING MEAL TAKE ONE CAPSULE BY MOUTH EVERY DAY 30 MINUTES BEFORE MORNING MEAL SOLD: 05/17/2020 [facility] albuterol sulfate hfa 108 mcg/act aers completed albuterol sulfate hfa 108 mcg/act aers [place] ([facility]) naproxen 500 mg tabs completed naproxen 500 mg tabs [place] ([facility]) tramadol hcl 50 mg tabs completed tramadol hcl 50 mg tabs [place] ([facility]) 24 HR venlafaxine 75 MG Extended Release Oral Capsule venlafaxine ER 75 mg capsule,extended release 24 hr TAKE ONE CAPSULE BY MOUTH EVERY DAY WITH FOOD venlafaxine ER 75 mg capsule,extended release 24 hr TAKE ONE CAPSULE BY MOUTH EVERY DAY WITH FOOD completed 24 HR venlafaxine 75 MG Extended Release Oral Capsule [place] ([facility]) Amoxicillin 500 MG / Clavulanate 125 MG Oral Tablet amoxicillin 500 mg-potassium clavulanate 125 mg tablet TAKE ONE TABLET BY MOUTH TWICE A DAY FOR 10 DAYS amoxicillin 500 mg-potassium clavulanate 125 mg tablet TAKE ONE TABLET BY MOUTH TWICE A DAY FOR 10 DAYS completed amoxicillin 500 MG / clavulanate 125 MG Oral Tablet [place] ([facility]) paroxetine hydrochloride 10 mg tabs completed paroxetine hydrochloride 10 mg tabs [place] ([facility]) paroxetine 10 mg tablet [id number] complet ed paroxetine hydrochloride 10 MG Oral Tablet [place] ([facility]) Ketotifen 0.25 MG/ML Ophthalmic Solution ketotifen 0.025 % (0.035 %) eye drops INSTILL 1 DROP IN EACH EYE TWO TIMES A DAY DIRECTED ketotifen 0.025 % (0.035 %) eye drops INSTILL 1 DROP IN EACH EYE TWO TIMES A DAY DIRECTED completed ketotifen 0.25 MG/ML Ophthalmic Solution [place] ([facility]) Naproxen 500 MG Oral Tablet naproxen 500 mg tablet naproxen 500 mg ta blet completed naproxen 500 MG Oral Tablet [place] ([facility]) venlafaxine hydrochloride er 75 mg cp24 completed venlafaxine hydrochloride er 75 mg cp24 [place] ([facility]) fluticasone propionate 50 mcg/actuation nasal spray,suspension [id number] completed fluticasone propionate 0.05 MG/ACTUAT Metered Dose Nasal [place] ([facility]) Naproxen 250 MG Oral Tablet naproxen 250 mg tablet 1 t ab as needed naproxen 250 mg tablet 1 tab as needed completed naproxen 250 MG Oral Tablet [place] ([facility]) Baclofen 10 MG Oral Tablet baclofen 10 m g tablet TAKE ONE TABLET BY MOUTH THREE TIMES A DAY NEEDED baclofen 10 mg tablet TAKE ONE TABLET BY MOUTH THREE TIMES A DAY NEEDED completed baclof en 10 MG Oral Tablet [place] ([facility]) albuterol sulfate hfa 108 mcg/act aers completed albuterol sulfate hfa 108 mcg/act aers [place] ([facility]) hydroco/apap tab 5-325mg completed hydroco/apap tab 5-325mg [place] ([facility]) Ketotifen 0.25 MG/ML Ophthalmic Solution ketotifen 0.025 % (0.035 %) eye drops INSTILL 1 DROP IN EACH EYE TWO TIMES A DAY DIRECTED ketotifen 0.025 % (0.035 %) eye drops INSTILL 1 DROP IN EACH EYE TWO TIMES A DAY DIRECTED completed ketotifen 0.25 MG/ML Ophthalmic Solution [place] ([facility]) Baclofen 10 MG Oral Tablet baclofen 10 m g tablet TAKE ONE TABLET BY MOUTH THREE TIMES A DAY NEEDED baclofen 10 mg tablet TAKE ONE TABLET BY MOUTH THREE TIMES A DAY NEEDED completed baclof en 10 MG Oral Tablet [place] ([facility]) ketotifen fumarate 0.025 % soln completed ketotifen fumarate 0.025 % soln [place] ([facility]) naproxen 500 mg tabs completed naproxen 500 mg tabs [place] ([facility]) Carisoprodol 350 MG Oral Tablet carisopr odol 350 mg tablet TAKE ONE TABLET BY MOUTH THREE TIMES A DAY NEEDED MAXIMUM DAILY DOSE 3 carisoprodol 350 mg tablet TAKE ONE TABLET BY MOUTH THREE TIMES A DAY NEEDED MAXIMUM DAILY DOSE 3 completed carisoprodol 350 MG Oral Tablet [place] ([facility]) hydroco/apap tab 5-325mg completed hydroco/apap tab 5-325mg [facility] ([facility]) [place] [facility] 1,000 mg capsule Take 1 capsule every day by oral r oute. [id number] 1 capsule(s) completed [place] 1,000 mg capsule [place] ([facility]) gabapentin 800 mg tabs completed gabapentin 800 mg tabs [place] ([facility]) baclofen 10 mg tabs completed baclofen 10 mg tabs [place] ([facility]) Carisoprodol 350 MG Oral Tablet carisopr odol 350 mg tablet TAKE ONE TABLET BY MOUTH THREE TIMES A DAY NEEDED MAXIMUM DAILY DOSE 3 carisoprodol 350 mg tablet TAKE ONE TABLET BY MOUTH THREE TIMES A DAY NEEDED MAXIMUM DAILY DOSE 3 completed carisoprodol 350 MG Oral Tablet [place] [facility]) latanoprost 0.005 % soln completed latanoprost 0.005 % soln [place] ([facility]) lidoc/banop/mi ac SWISH AND SPIT WITH 10 ML FOUR TIMES A DAY NEEDED FOR MUCOSITIS completed lidoc/ banop/mi ac [place] ([facility]) methylprednisolone dose pack 4 mg tbpk completed methylprednisolone dose pack 4 mg tbpk [place] ([facility]) baclofen 10 mg tabs completed baclofen 10 mg tabs [place] ([facility]) tramadol hcl 50 mg tabs completed tramadol hcl 50 mg tabs [place] [facility]) zonisamide 50 MG Oral Capsule zonisamide 50 mg capsule TAKE ONE CAPSULE BY MOUTH TWICE A DAY zonisamide 50 mg capsule TAKE ONE CAPSULE BY MOUTH TWICE A DAY completed zonisamide 50 MG Oral Capsule [place] ([facility]) zonisamide 50 MG Oral Capsule zonisamide 50 mg capsule TAKE ONE CAPSULE BY MOUTH TWICE A DAY zonisamide 50 mg capsule TAKE ONE CAPSULE BY MOUTH TWICE A DAY completed zonisamide 50 MG Oral Capsule [place] ([facility]) fluticasone propionate 50 mcg/act susp completed fluticasone propionate 50 mcg/act susp [place] ([facility]) Amoxicillin 500 MG Oral Capsule amoxicillin 500 mg cap joe amoxicillin 500 mg capsule completed amoxicillin 50 0 MG Oral Capsule [place] ([facility]) gabapentin 800 mg tabs completed gabapentin 800 mg tabs [place] ([facility]) hydroco/apap tab 5-325mg completed hydroco/apap tab 5-325mg [place] ([facility]) Lidocaine Hydrochloride 30 MG/ML Topical Cream lidocai ne HCl 3 % topical cream lidocaine HCl 3 % topical cream comple sonja lidocaine hydrochloride 30 MG/ML Topical Cream [place] ([facility]) 24 HR venlafaxine 75 MG Extended Release Oral Capsule venlafaxine ER 75 mg capsule,extended release 24 hr TAKE ONE CAPSULE BY MOUTH EVERY DAY WITH FOOD venlafaxine ER 75 mg capsule,extended release 24 hr TAKE ONE CAPSULE BY MOUTH EVERY DAY WITH FOOD completed 24 HR venlafaxine 75 MG Extended Release Oral Capsule [place] ([facility]) tramadol hcl 50 mg tabs completed tramadol hcl 50 mg tabs [place] ([facility]) fluticasone propionate 50 mcg/act susp completed fluticasone propionate 50 mcg/act susp [place] ([facility]) methylprednisolone dose pack 4 mg tbpk completed methylprednisolone dose pack 4 mg tbpk [place] ([facility]) Omeprazole 40 MG Delayed Release Oral Ca psule omeprazole 40 mg capsule,delayed release TAKE 1 CAPSULE BY MOUTH 30 MINUTES BEFORE MORNING MEAL ONCE A DAY omeprazole 40 mg capsule,delayed release TAKE 1 CAPSULE BY MOUTH 30 MINUTES BEFORE MORNING MEAL ONCE A DAY complet ed omeprazole 40 MG Delayed Release Oral Capsule [place] ([facility]) latanoprost 0.005 % soln completed latanoprost 0.005 % soln [place] ([facility]) Ketotifen 0.25 MG/ML Ophthalmic Solution ketotifen 0.025 % (0.035 %) eye drops INSTILL 1 DROP IN EACH EYE TWO TIMES A DAY DIRECTED ketotifen 0.025 % (0.035 %) eye drops INSTILL 1 DROP IN EACH EYE TWO TIMES A DAY DIRECTED completed ketotifen 0.25 MG/ML Ophthalmic Solution [place] ([facility]) venlafaxine hydrochloride er 75 mg cp24 completed venlafaxine hydrochloride er 75 mg cp24 [facility] [place] [facility]) fluticasone propionate 50 mcg/act susp completed fluticasone propionate 50 mcg/act susp [facility] [place] [facility]) ketotifen fumarate 0.025 % soln completed ketotifen fumarate 0.025 % soln [facility] [place] [facility]) Naproxen 500 MG Oral Tablet naproxen 500 mg tablet naproxen 500 mg ta blet completed naproxen 500 MG Oral Tablet [place] ([facility]) Brimonidine tartrate 2 MG/ML Ophthalmic Solution brimonidine 0.2 % eye drops INSTILL 1 DROP INTO BOTH EYES TWICE A DAY brimonidine 0.2 % eye drops INSTILL 1 DROP INTO BOTH EYES TWICE A DAY comple sojna brimonidine tartrate 2 MG/ML Ophthalmic Solution [facility] [place] [facility]) methylprednisolone dose pack 4 mg tbpk completed methylprednisolone dose pack 4 mg tbpk [facility] [place] [facility]) gabapentin 800 mg tabs completed gabapentin 800 mg tabs [facility] [place] [facility]) tramadol hcl 50 mg tabs completed tramadol hcl 50 mg tabs [facility] [place] [facility]) baclofen 10 mg tabs completed baclofen 10 mg tabs [place] ([facility]) Brimonidine tartrate 2 MG/ML Ophthalmic Solution brimonidine 0.2 % eye drops INSTILL 1 DROP INTO BOTH EYES TWICE A DAY brimonidine 0.2 % eye drops INSTILL 1 DROP INTO BOTH EYES TWICE A DAY comple sonja brimonidine tartrate 2 MG/ML Ophthalmic Solution [place] ([facility]) baclofen 10 mg tabs completed baclofen 10 mg tabs [place] ([facility]) venlafaxine hydrochloride er 75 mg cp24 completed venlafaxine hydrochloride er 75 mg cp24 [facility] [place] [facility]) ibuprofen 800 mg tabs completed ibuprofen 800 mg tabs [place] ([facility]) ibuprofen 800 mg tabs completed ibuprofen 800 mg tabs [facility] [place] [facility]) Naproxen 250 MG Oral Tablet naproxen 250 mg tablet 1 t ab as needed naproxen 250 mg tablet 1 tab as needed completed naproxen 250 MG Oral Tablet [place] ([facility]) amoxicillin 500 mg caps completed amoxicillin 500 mg caps [facility] [place] [facility]) Methocarbamol 750 MG Oral Tablet methoca rbamol 750 mg tablet TAKE ONE TABLET BY MOUTH THREE TIMES A DAY NEEDED methocarbamol 750 mg tablet TAKE ONE TAB LET BY MOUTH THREE TIMES A DAY NEEDED comp leted methocarbamol 750 MG Oral Tablet [facility] [place] [facility]) methocarbamol 750 mg tabs compl eted methocarbamol 750 mg tabs [facility] [place] [facility]) albuterol sulfate HFA 90 mcg/actuation a erosol inhaler USE 2 PUFFS BY MOUTH EVERY 4 HOURS NEEDED FOR COUGH [id number] com pleted [id number] 200 ACTUAT albuterol 0.09 MG/ACTUAT Metered Dose Inhaler [facility] [place] [facility]) amoxicillin 500 mg caps completed amoxicillin 500 mg caps [facility] [place] [facility]) hydroco/apap tab 5-325mg completed hydroco/apap tab 5-325mg [facility] [place] [facility]) Carisoprodol 350 MG Oral Tablet carisopr odol 350 mg tablet TAKE ONE TABLET BY MOUTH THREE TIMES A DAY NEEDED MAXIMUM DAILY DOSE 3 carisoprodol 350 mg tablet TAKE ONE TABLET BY MOUTH THREE TIMES A DAY NEEDED MAXIMUM DAILY DOSE 3 completed carisoprodol 350 MG Oral Tablet [facility] [place] [facility]) albuterol sulfate hfa 108 mcg/act aers completed albuterol sulfate hfa 108 mcg/act aers [facility] [place] [facility]) gabapentin 800 mg tabs completed gabapentin 800 mg tabs [facility] [place] [facility]) tramadol hcl 50 mg tabs completed tramadol hcl 50 mg tabs [facility] [place] [facility]) latanoprost 0.005 % soln completed latanoprost 0.005 % soln [place] ([facility]) Carisoprodol 350 MG Oral Tablet carisopr odol 350 mg tablet TAKE ONE TABLET BY MOUTH THREE TIMES A DAY NEEDED MAXIMUM DAILY DOSE 3 carisoprodol 350 mg tablet TAKE ONE TABLET BY MOUTH THREE TIMES A DAY NEEDED MAXIMUM DAILY DOSE 3 completed carisoprodol 350 MG Oral Tablet [place] ([facility]) Lidocaine Hydrochloride 30 MG/ML Topical Cream lidocai ne HCl 3 % topical cream lidocaine HCl 3 % topical cream comple sonja lidocaine hydrochloride 30 MG/ML Topical Cream [place] ([facility]) albuterol sulfate hfa 108 mcg/act aers completed albuterol sulfate hfa 108 mcg/act aers [place] ([facility]) baclofen 10 mg tabs completed baclofen 10 mg tabs [place] ([facility]) fluconazole 150 mg tabs completed fluconazole 150 mg tabs [place] ([facility]) amoxicillin 500 mg caps completed amoxicillin 500 mg caps [place] ([facility]) naproxen 500 mg tabs completed naproxen 500 mg tabs [place] ([facility]) cetirizine hydrochloride 10 MG Oral Tabl et cetirizine 10 mg tablet 1 tab as needed cetirizine 10 mg tablet 1 tab as needed completed cetirizine hydrochloride 10 MG Oral Tablet [place] ([facility]) tramadol hcl 50 mg tabs completed tramadol hcl 50 mg tabs [place] ([facility] Carisoprodol 350 MG Oral Tablet carisopr odol 350 mg tablet TAKE ONE TABLET BY MOUTH THREE TIMES A DAY NEEDED MAXIMUM DAILY DOSE 3 carisoprodol 350 mg tablet TAKE ONE TABLET BY MOUTH THREE TIMES A DAY NEEDED MAXIMUM DAILY DOSE 3 completed carisoprodol 350 MG Oral Tablet [place] ([facility]) Fluconazole 150 MG Oral Tablet fluconazole 150 mg tabl et fluconazole 150 mg tablet completed fluconazole 150 MG Oral Tablet [place] ([facility]) artificial tears 1.4 % soln com pleted artificial tears 1.4 % soln [place] ([facility]) cetirizine hydrochloride 10 MG Oral Tabl et cetirizine 10 mg tablet 1 tab as needed cetirizine 10 mg tablet 1 tab as needed completed cetirizine hydrochloride 10 MG Oral Tablet [place] ([facility]) gabapentin 800 mg tabs completed gabapentin 800 mg tabs [place] ([facility]) Brimonidine tartrate 2 MG/ML Ophthalmic Solution brimonidine 0.2 % eye drops INSTILL 1 DROP INTO BOTH EYES TWICE A DAY brimonidine 0.2 % eye drops INSTILL 1 DROP INTO BOTH EYES TWICE A DAY comple sonja brimonidine tartrate 2 MG/ML Ophthalmic Solution [place] ([facility]) amoxicillin 500 mg caps completed amoxicillin 500 mg caps [place] ([facility]) naproxen 500 mg tabs completed naproxen 500 mg tabs [place] ([facility]) methocarbamol 750 mg tabs compl eted methocarbamol 750 mg tabs [place] ([facility]) brimonidine tartrate 0.2 % soln completed brimonidine tartrate 0.2 % soln [place] ([facility]) gabapentin 800 mg tabs completed gabapentin 800 mg tabs [place] ([facility]) brimonidine tartrate 0.2 % soln completed brimonidine tartrate 0.2 % soln [place] ([facility]) Naproxen 250 MG Oral Tablet naproxen 250 mg tablet 1 t ab as needed naproxen 250 mg tablet 1 tab as needed completed naproxen 250 MG Oral Tablet [place] ([facility]) albuterol sulfate hfa 108 mcg/act aers completed albuterol sulfate hfa 108 mcg/act aers [place] ([facility]) Baclofen 10 MG Oral Tablet baclofen 10 m g tablet TAKE ONE TABLET BY MOUTH THREE TIMES A DAY NEEDED baclofen 10 mg tablet TAKE ONE TABLET BY MOUTH THREE TIMES A DAY NEEDED completed baclof en 10 MG Oral Tablet [place] ([facility]) latanoprost 0.005 % soln completed latanoprost 0.005 % soln [place] ([facility]) amoxicillin 500 mg caps completed amoxicillin 500 mg caps [place] ([facility]) Baclofen 10 MG Oral Tablet baclofen 10 m g tablet TAKE ONE TABLET BY MOUTH THREE TIMES A DAY NEEDED baclofen 10 mg tablet TAKE ONE TABLET BY MOUTH THREE TIMES A DAY NEEDED completed baclof en 10 MG Oral Tablet [place] ([facility]) zonisamide 50 MG Oral Capsule zonisamide 50 mg capsule TAKE ONE CAPSULE BY MOUTH TWICE A DAY zonisamide 50 mg capsule TAKE ONE CAPSULE BY MOUTH TWICE A DAY completed zonisamide 50 MG Oral Capsule [place] ([facility]) paroxetine 10 mg tablet [id number] complet ed paroxetine hydrochloride 10 MG Oral Tablet [place] ([facility]) latanoprost 0.005 % soln completed latanoprost 0.005 % soln [place] ([facility]) Naproxen 500 MG Oral Tablet naproxen 500 mg tablet naproxen 500 mg ta blet completed naproxen 500 MG Oral Tablet [place] ([facility]) ibuprofen 800 mg tabs completed ibuprofen 800 mg tabs [place] ([facility]) fluticasone propionate 50 mcg/act susp completed fluticasone propionate 50 mcg/act susp [place] ([facility]) paroxetine 10 mg tablet [id number] complet ed paroxetine hydrochloride 10 MG Oral Tablet [place] ([facility]) albuterol sulfate hfa 108 mcg/act aers completed albuterol sulfate hfa 108 mcg/act aers [place] ([facility]) latanoprost 0.005 % soln completed latanoprost 0.005 % soln [place] ([facility]) amoxicillin 500 mg caps completed amoxicillin 500 mg caps [place] ([facility]) Carisoprodol 350 MG Oral Tablet carisopr odol 350 mg tablet TAKE ONE TABLET BY MOUTH THREE TIMES A DAY NEEDED MAXIMUM DAILY DOSE 3 carisoprodol 350 mg tablet TAKE ONE TABLET BY MOUTH THREE TIMES A DAY NEEDED MAXIMUM DAILY DOSE 3 completed carisoprodol 350 MG Oral Tablet [place] ([facility]) Ibuprofen 600 MG Oral Tablet ibuprofen 600 mg tablet ibuprofen 6 00 mg tablet completed ibuprofen 600 MG Oral Tablet [place] ([facility]) methocarbamol 750 mg tabs compl eted methocarbamol 750 mg tabs [place] ([facility]) Brimonidine tartrate 2 MG/ML Ophthalmic Solution brimonidine 0.2 % eye drops INSTILL 1 DROP INTO BOTH EYES TWICE A DAY brimonidine 0.2 % eye drops INSTILL 1 DROP INTO BOTH EYES TWICE A DAY yang romeroimonidine tartrate 2 MG/ML Ophthalmic Solution [place] ([facility]) cetirizine hydrochloride 10 MG Oral Tabl et cetirizine 10 mg tablet 1 tab as needed cetirizine 10 mg tablet 1 tab as needed completed cetirizine hydrochloride 10 MG Oral Tablet [place] ([facility]) amoxicillin 500 mg caps completed amoxicillin 500 mg caps [place] ([facility]) Lidocaine Hydrochloride 30 MG/ML Topical Cream lidocai ne HCl 3 % topical cream lidocaine HCl 3 % topical cream comple sonja lidocaine hydrochloride 30 MG/ML Topical Cream [place] ([facility]) brimonidine tartrate 0.2 % soln completed brimonidine tartrate 0.2 % soln [place] ([facility]) albuterol sulfate hfa 108 mcg/act aers completed albuterol sulfate hfa 108 mcg/act aers [place] ([facility]) fluconazole 150 mg tabs completed fluconazole 150 mg tabs [place] ([facility]) ketotifen fumarate 0.025 % soln completed ketotifen fumarate 0.025 % soln [place] ([facility]) fluticasone propionate 50 mcg/actuation nasal spray,suspension [id number] completed fluticasone propionate 0.05 MG/ACTUAT Metered Dose Nasal [place] [facility] [place] [facility]) albuterol sulfate HFA 90 mcg/actuation a erosol inhaler USE 2 PUFFS BY MOUTH EVERY 4 HOURS NEEDED FOR COUGH [id number] com pleted [id number] 200 ACTUAT albuterol 0.09 MG/ACTUAT Metered Dose Inhaler [place] ([facility]) Ketotifen 0.25 MG/ML Ophthalmic Solution ketotifen 0.025 % (0.035 %) eye drops INSTILL 1 DROP IN EACH EYE TWO TIMES A DAY DIRECTED ketotifen 0.025 % (0.035 %) eye drops INSTILL 1 DROP IN EACH EYE TWO TIMES A DAY DIRECTED completed ketotifen 0.25 MG/ML Ophthalmic Solution [place] ([facility]) [place] Oil 1,000 mg capsule Take 1 capsule every day by oral r oute. [id number] 1 capsule(s) completed [place] 1,000 mg capsule [place] ([facility]) Lidocaine Hydrochloride 30 MG/ML Topical Cream lidocai ne HCl 3 % topical cream lidocaine HCl 3 % topical cream comple sonja lidocaine hydrochloride 30 MG/ML Topical Cream [place] ([facility]) Baclofen 10 MG Oral Tablet baclofen 10 m g tablet TAKE ONE TABLET BY MOUTH THREE TIMES A DAY NEEDED baclofen 10 mg tablet TAKE ONE TABLET BY MOUTH THREE TIMES A DAY NEEDED completed baclof en 10 MG Oral Tablet [place] ([facility]) gabapentin 800 mg tabs completed gabapentin 800 mg tabs [place] ([facility]) 24 HR venlafaxine 75 MG Extended Release Oral Capsule venlafaxine ER 75 mg capsule,extended release 24 hr TAKE ONE CAPSULE BY MOUTH EVERY DAY WITH FOOD venlafaxine ER 75 mg capsule,extended release 24 hr TAKE ONE CAPSULE BY MOUTH EVERY DAY WITH FOOD completed 24 HR venlafaxine 75 MG Extended Release Oral Capsule [place] ([facility]) zonisamide 50 MG Oral Capsule zonisamide 50 mg capsule TAKE ONE CAPSULE BY MOUTH TWICE A DAY zonisamide 50 mg capsule TAKE ONE CAPSULE BY MOUTH TWICE A DAY completed zonisamide 50 MG Oral Capsule [place] ([facility]) cetirizine hydrochloride 10 MG Oral Tabl et cetirizine 10 mg tablet 1 tab as needed cetirizine 10 mg tablet 1 tab as needed completed cetirizine hydrochloride 10 MG Oral Tablet [place] ([facility]) baclofen 10 mg tabs completed baclofen 10 mg tabs [place] ([facility]) methocarbamol 750 mg tabs compl eted methocarbamol 750 mg tabs [place] ([facility]) baclofen 10 mg tabs completed baclofen 10 mg tabs [place] ([facility]) fluticasone propionate 50 mcg/act susp completed fluticasone propionate 50 mcg/act susp [place] ([facility]) cetirizine hydrochloride 10 MG Oral Tabl et cetirizine 10 mg tablet 1 tab as needed cetirizine 10 mg tablet 1 tab as needed completed cetirizine hydrochloride 10 MG Oral Tablet [place] ([facility]) ibuprofen 800 mg tabs completed ibuprofen 800 mg tabs [place] ([facility]) venlafaxine hydrochloride er 75 mg cp24 completed venlafaxine hydrochloride er 75 mg cp24 [place] [facility]) fluconazole 150 mg tabs completed fluconazole 150 mg tabs [place] ([facility]) hydroco/apap tab 5-325mg completed hydroco/apap tab 5-325mg [place] ([facility]) hydroco/apap tab 5-325mg completed hydroco/apap tab 5-325mg [place] ([facility]) Carisoprodol 350 MG Oral Tablet carisopr odol 350 mg tablet TAKE ONE TABLET BY MOUTH THREE TIMES A DAY NEEDED MAXIMUM DAILY DOSE 3 carisoprodol 350 mg tablet TAKE ONE TABLET BY MOUTH THREE TIMES A DAY NEEDED MAXIMUM DAILY DOSE 3 completed carisoprodol 350 MG Oral Tablet [place] ([facility]) Lorazepam 1 MG Oral Tablet lorazepam 1 mg tablet lorazepam 1 mg tablet completed lorazepam 1 MG Oral Table t [place] ([facility]) lidoc/banop/mi ac SWISH AND SPIT WITH 10 ML FOUR TIMES A DAY NEEDED FOR MUCOSITIS completed lidoc/ banop/mi ac [place] ([facility]) fluticasone propionate 50 mcg/act susp completed fluticasone propionate 50 mcg/act susp [place] ([facility]) fluticasone propionate 50 mcg/act susp completed fluticasone propionate 50 mcg/act susp [place] ([facility]) Ketotifen 0.25 MG/ML Ophthalmic Solution ketotifen 0.025 % (0.035 %) eye drops INSTILL 1 DROP IN EACH EYE TWO TIMES A DAY DIRECTED ketotifen 0.025 % (0.035 %) eye drops INSTILL 1 DROP IN EACH EYE TWO TIMES A DAY DIRECTED completed ketotifen 0.25 MG/ML Ophthalmic Solution [place] ([facility]) paroxetine 10 mg tablet [id number] complet ed paroxetine hydrochloride 10 MG Oral Tablet [place] ([facility]) venlafaxine hydrochloride er 75 mg cp24 completed venlafaxine hydrochloride er 75 mg cp24 [place] ([facility]) brimonidine tartrate 0.2 % soln completed brimonidine tartrate 0.2 % soln [place] ([facility]) fluticasone propionate 50 mcg/act susp completed fluticasone propionate 50 mcg/act susp [place] ([facility]) methylprednisolone dose pack 4 mg tbpk completed methylprednisolone dose pack 4 mg tbpk [place] ([facility]) fluticasone propionate 50 mcg/act susp completed fluticasone propionate 50 mcg/act susp [place] ([facility]) methocarbamol 750 mg tabs compl eted methocarbamol 750 mg tabs [place] ([facility]) Lidocaine Hydrochloride 30 MG/ML Topical Cream lidocai ne HCl 3 % topical cream lidocaine HCl 3 % topical cream comple sonja lidocaine hydrochloride 30 MG/ML Topical Cream [place] ([facility]) Carisoprodol 350 MG Oral Tablet carisopr odol 350 mg tablet TAKE ONE TABLET BY MOUTH THREE TIMES A DAY NEEDED MAXIMUM DAILY DOSE 3 carisoprodol 350 mg tablet TAKE ONE TABLET BY MOUTH THREE TIMES A DAY NEEDED MAXIMUM DAILY DOSE 3 completed carisoprodol 350 MG Oral Tablet [place] ([facility]) Naproxen 250 MG Oral Tablet naproxen 250 mg tablet 1 t ab as needed naproxen 250 mg tablet 1 tab as needed completed naproxen 250 MG Oral Tablet [place] ([facility]) albuterol sulfate HFA 90 mcg/actuation a erosol inhaler USE 2 PUFFS BY MOUTH EVERY 4 HOURS NEEDED FOR COUGH [id number] com pleted [id number] 200 ACTUAT albuterol 0.09 MG/ACTUAT Metered Dose Inhaler [place] ([facility]) fluconazole 150 mg tabs completed fluconazole 150 mg tabs [place] ([facility]) paroxetine hydrochloride 10 mg tabs completed paroxetine hydrochloride 10 mg tabs [place] ([facility]) ibuprofen 800 mg tabs completed ibuprofen 800 mg tabs [place] ([facility]) Amoxicillin 500 MG Oral Capsule amoxicillin 500 mg cap joe amoxicillin 500 mg capsule completed amoxicillin 50 0 MG Oral Capsule [place] ([facility]) methocarbamol 750 mg tabs compl eted methocarbamol 750 mg tabs [place] ([facility]) Ibuprofen 800 MG Oral Tablet ibuprofen 800 mg tablet ibuprofen 8 00 mg tablet completed ibuprofen 800 MG Oral Tablet [place] ([facility]) latanoprost 0.005 % soln completed latanoprost 0.005 % soln [place] ([facility]) Baclofen 10 MG Oral Tablet baclofen 10 m g tablet TAKE ONE TABLET BY MOUTH THREE TIMES A DAY NEEDED baclofen 10 mg tablet TAKE ONE TABLET BY MOUTH THREE TIMES A DAY NEEDED completed baclof en 10 MG Oral Tablet [place] ([facility]) fluticasone propionate 50 mcg/actuation nasal spray,suspension [id number] completed fluticasone propionate 0.05 MG/ACTUAT Metered Dose Nasal [place] ([facility]) lidoc/banop/mi ac SWISH AND SPIT WITH 10 ML FOUR TIMES A DAY NEEDED FOR MUCOSITIS completed lidoc/ banop/mi ac [place] ([facility]) Lidocaine Hydrochloride 30 MG/ML Topical Cream lidocai ne HCl 3 % topical cream lidocaine HCl 3 % topical cream comple sonja lidocaine hydrochloride 30 MG/ML Topical Cream [place] ([facility]) artificial tears 1.4 % soln com pleted artificial tears 1.4 % soln [place] ([facility]) fluticasone propionate 50 mcg/actuation nasal spray,suspension [id number] completed fluticasone propionate 0.05 MG/ACTUAT Metered Dose Nasal [place] ([facility]) Amoxicillin 500 MG Oral Capsule amoxicillin 500 mg cap joe amoxicillin 500 mg capsule completed amoxicillin 50 0 MG Oral Capsule [place] ([facility]) baclofen 10 mg tabs completed baclofen 10 mg tabs [place] ([facility]) latanoprost 0.005 % soln completed latanoprost 0.005 % soln [place] ([facility]) hydroco/apap tab 5-325mg completed hydroco/apap tab 5-325mg [place] ([facility]) baclofen 10 mg tabs completed baclofen 10 mg tabs [place] ([facility]) Omeprazole 40 MG Delayed Release Oral Ca psule omeprazole 40 mg capsule,delayed release TAKE 1 CAPSULE BY MOUTH 30 MINUTES BEFORE MORNING MEAL ONCE A DAY omeprazole 40 mg capsule,delayed release TAKE 1 CAPSULE BY MOUTH 30 MINUTES BEFORE MORNING MEAL ONCE A DAY complet ed omeprazole 40 MG Delayed Release Oral Capsule [place] ([facility]) paroxetine 10 mg tablet [id number] complet ed paroxetine hydrochloride 10 MG Oral Tablet [place] ([facility]) brimonidine tartrate 0.2 % soln completed brimonidine tartrate 0.2 % soln [place] ([facility]) paroxetine hydrochloride 10 mg tabs completed paroxetine hydrochloride 10 mg tabs [place] ([facility]) tramadol hcl 50 mg tabs completed tramadol hcl 50 mg tabs [place] ([facility]) fluconazole 150 mg tabs completed fluconazole 150 mg tabs [place] ([facility]) Amoxicillin 500 MG Oral Capsule amoxicillin 500 mg cap joe amoxicillin 500 mg capsule completed amoxicillin 50 0 MG Oral Capsule [place] ([facility]) albuterol sulfate hfa 108 mcg/act aers completed albuterol sulfate hfa 108 mcg/act aers [place] ([facility]) zonisamide 50 MG Oral Capsule zonisamide 50 mg capsule TAKE ONE CAPSULE BY MOUTH TWICE A DAY zonisamide 50 mg capsule TAKE ONE CAPSULE BY MOUTH TWICE A DAY completed zonisamide 50 MG Oral Capsule [place] ([facility]) paroxetine hydrochloride 10 mg tabs completed paroxetine hydrochloride 10 mg tabs [place] ([facility]) fluticasone propionate 50 mcg/act susp completed fluticasone propionate 50 mcg/act susp [facility] [place] [facility]) [place] 1,000 mg capsule Take 1 capsule every day by oral r oute. [id number] 1 capsule(s) completed [place] 1,000 mg capsule [place] ([facility]) Brimonidine tartrate 2 MG/ML Ophthalmic Solution brimonidine 0.2 % eye drops INSTILL 1 DROP INTO BOTH EYES TWICE A DAY brimonidine 0.2 % eye drops INSTILL 1 DROP INTO BOTH EYES TWICE A DAY comple sonja brimonidine tartrate 2 MG/ML Ophthalmic Solution [place] ([facility]) Ibuprofen 600 MG Oral Tablet ibuprofen 600 mg tablet ibuprofen 6 00 mg tablet completed ibuprofen 600 MG Oral Tablet [place] ([facility]) tramadol hcl 50 mg tabs completed tramadol hcl 50 mg tabs [place] ([facility]) methylprednisolone dose pack 4 mg tbpk completed methylprednisolone dose pack 4 mg tbpk [place] ([facility]) Ketotifen 0.25 MG/ML Ophthalmic Solution ketotifen 0.025 % (0.035 %) eye drops INSTILL 1 DROP IN EACH EYE TWO TIMES A DAY DIRECTED ketotifen 0.025 % (0.035 %) eye drops INSTILL 1 DROP IN EACH EYE TWO TIMES A DAY DIRECTED completed ketotifen 0.25 MG/ML Ophthalmic Solution [place] ([facility]) Lidocaine Hydrochloride 30 MG/ML Topical Cream lidocai ne HCl 3 % topical cream lidocaine HCl 3 % topical cream comple sonja lidocaine hydrochloride 30 MG/ML Topical Cream [place] ([facility]) tramadol hcl 50 mg tabs completed tramadol hcl 50 mg tabs [place] ([facility]) Naproxen 500 MG Oral Tablet naproxen 500 mg tablet naproxen 500 mg ta blet completed naproxen 500 MG Oral Tablet [place] ([facility]) brimonidine tartrate 0.2 % soln completed brimonidine tartrate 0.2 % soln [place] ([facility]) amoxicillin 500 mg caps completed amoxicillin 500 mg caps [place] ([facility]) fluticasone propionate 50 mcg/act susp completed fluticasone propionate 50 mcg/act susp [place] ([facility]) fluconazole 150 mg tabs completed fluconazole 150 mg tabs [place] ([facility]) Amoxicillin 500 MG Oral Capsule amoxicillin 500 mg cap joe amoxicillin 500 mg capsule completed amoxicillin 50 0 MG Oral Capsule [place] ([facility]) brimonidine tartrate 0.2 % soln completed brimonidine tartrate 0.2 % soln [place] ([facility]) Amoxicillin 500 MG Oral Capsule amoxicillin 500 mg cap joe amoxicillin 500 mg capsule completed amoxicillin 50 0 MG Oral Capsule [place] ([facility]) methocarbamol 750 mg tabs compl eted methocarbamol 750 mg tabs [place] ([facility]) baclofen 10 mg tabs completed baclofen 10 mg tabs [place] ([facility]) Lidocaine Hydrochloride 30 MG/ML Topical Cream lidocai ne HCl 3 % topical cream lidocaine HCl 3 % topical cream comple sonja lidocaine hydrochloride 30 MG/ML Topical Cream [place] ([facility]) gabapentin 800 mg tabs completed gabapentin 800 mg tabs [place] ([facility]) Omeprazole 40 MG Delayed Release Oral Ca psule omeprazole 40 mg capsule,delayed release TAKE 1 CAPSULE BY MOUTH 30 MINUTES BEFORE MORNING MEAL ONCE A DAY omeprazole 40 mg capsule,delayed release TAKE 1 CAPSULE BY MOUTH 30 MINUTES BEFORE MORNING MEAL ONCE A DAY complet ed omeprazole 40 MG Delayed Release Oral Capsule [place] ([facility]) paroxetine 10 mg tablet [id number] complet ed paroxetine hydrochloride 10 MG Oral Tablet [place] ([facility]) Amoxicillin 500 MG Oral Capsule amoxicillin 500 mg cap joe amoxicillin 500 mg capsule completed amoxicillin 50 0 MG Oral Capsule [place] ([facility]) Lorazepam 1 MG Oral Tablet lorazepam 1 mg tablet lorazepam 1 mg tablet completed lorazepam 1 MG Oral Table t [place] ([facility]) brimonidine tartrate 0.2 % soln completed brimonidine tartrate 0.2 % soln [place] ([facility]) baclofen 10 mg tabs completed baclofen 10 mg tabs [place] ([facility]) methylprednisolone dose pack 4 mg tbpk completed methylprednisolone dose pack 4 mg tbpk [place] ([facility]) Ketotifen 0.25 MG/ML Ophthalmic Solution ketotifen 0.025 % (0.035 %) eye drops INSTILL 1 DROP IN EACH EYE TWO TIMES A DAY DIRECTED ketotifen 0.025 % (0.035 %) eye drops INSTILL 1 DROP IN EACH EYE TWO TIMES A DAY DIRECTED completed ketotifen 0.25 MG/ML Ophthalmic Solution [place] ([facility]) naproxen 500 mg tabs completed naproxen 500 mg tabs [place] ([facility]) Carisoprodol 350 MG Oral Tablet carisopr odol 350 mg tablet TAKE ONE TABLET BY MOUTH THREE TIMES A DAY NEEDED MAXIMUM DAILY DOSE 3 carisoprodol 350 mg tablet TAKE ONE TABLET BY MOUTH THREE TIMES A DAY NEEDED MAXIMUM DAILY DOSE 3 completed carisoprodol 350 MG Oral Tablet [place] ([facility]) Fluconazole 150 MG Oral Tablet fluconazole 150 mg tabl et fluconazole 150 mg tablet completed fluconazole 150 MG Oral Tablet [place] ([facility]) brimonidine tartrate 0.2 % soln completed brimonidine tartrate 0.2 % soln [place] ([facility]) gabapentin 800 mg tabs completed gabapentin 800 mg tabs [place] ([facility]) Lidocaine Hydrochloride 30 MG/ML Topical Cream lidocai ne HCl 3 % topical cream lidocaine HCl 3 % topical cream comple sonja lidocaine hydrochloride 30 MG/ML Topical Cream [place] ([facility]) Ibuprofen 600 MG Oral Tablet ibuprofen 600 mg tablet ibuprofen 6 00 mg tablet completed ibuprofen 600 MG Oral Tablet [place] ([facility]) Naproxen 250 MG Oral Tablet naproxen 250 mg tablet 1 t ab as needed naproxen 250 mg tablet 1 tab as needed completed naproxen 250 MG Oral Tablet [place] ([facility]) amoxicillin 500 mg caps completed amoxicillin 500 mg caps [place] ([facility]) Amoxicillin 500 MG Oral Capsule amoxicillin 500 mg cap joe amoxicillin 500 mg capsule completed amoxicillin 50 0 MG Oral Capsule [place] ([facility]) fluticasone propionate 50 mcg/actuation nasal spray,suspension [id number] completed fluticasone propionate 0.05 MG/ACTUAT Metered Dose Nasal [place] ([facility]) ibuprofen 800 mg tabs completed ibuprofen 800 mg tabs [place] ([facility]) Baclofen 10 MG Oral Tablet baclofen 10 m g tablet TAKE ONE TABLET BY MOUTH THREE TIMES A DAY NEEDED baclofen 10 mg tablet TAKE ONE TABLET BY MOUTH THREE TIMES A DAY NEEDED completed baclof en 10 MG Oral Tablet [place] ([facility]) ibuprofen 800 mg tabs completed ibuprofen 800 mg tabs [place] ([facility]) ketotifen fumarate 0.025 % soln completed ketotifen fumarate 0.025 % soln [place] ([facility]) methocarbamol 750 mg tabs compl eted methocarbamol 750 mg tabs [place] ([facility]) naproxen 500 mg tabs completed naproxen 500 mg tabs [place] ([facility]) venlafaxine hydrochloride er 75 mg cp24 completed venlafaxine hydrochloride er 75 mg cp24 [place] ([facility]) baclofen 10 mg tabs completed baclofen 10 mg tabs [place] ([facility]) fluticasone propionate 50 mcg/act susp completed fluticasone propionate 50 mcg/act susp [place] ([facility]) naproxen 500 mg tabs completed naproxen 500 mg tabs [place] ([facility]) latanoprost 0.005 % soln completed latanoprost 0.005 % soln [place] ([facility]) latanoprost 0.005 % soln completed latanoprost 0.005 % soln [place] ([facility]) tramadol hcl 50 mg tabs completed tramadol hcl 50 mg tabs [place] ([facility]) methocarbamol 750 mg tabs compl eted methocarbamol 750 mg tabs [place] ([facility]) amoxicillin 500 mg caps completed amoxicillin 500 mg caps [place] ([facility]) Naproxen 500 MG Oral Tablet naproxen 500 mg tablet naproxen 500 mg ta blet completed naproxen 500 MG Oral Tablet [place] ([facility]) Ketotifen 0.25 MG/ML Ophthalmic Solution ketotifen 0.025 % (0.035 %) eye drops INSTILL 1 DROP IN EACH EYE TWO TIMES A DAY DIRECTED ketotifen 0.025 % (0.035 %) eye drops INSTILL 1 DROP IN EACH EYE TWO TIMES A DAY DIRECTED completed ketotifen 0.25 MG/ML Ophthalmic Solution [place] ([facility]) Amoxicillin 500 MG Oral Capsule amoxicillin 500 mg cap joe amoxicillin 500 mg capsule completed amoxicillin 50 0 MG Oral Capsule [place] ([facility]) Lorazepam 1 MG Oral Tablet lorazepam 1 mg tablet lorazepam 1 mg tablet completed lorazepam 1 MG Oral Table t [place] ([facility]) fluticasone propionate 50 mcg/actuation nasal spray,suspension [id number] completed fluticasone propionate 0.05 MG/ACTUAT Metered Dose Nasal [place] [facility] [place] [facility]) Naproxen 250 MG Oral Tablet naproxen 250 mg tablet 1 t ab as needed naproxen 250 mg tablet 1 tab as needed completed naproxen 250 MG Oral Tablet [place] ([facility]) ibuprofen 800 mg tabs completed ibuprofen 800 mg tabs [place] ([facility]) Naproxen 500 MG Oral Tablet naproxen 500 mg tablet naproxen 500 mg ta blet completed naproxen 500 MG Oral Tablet [place] ([facility]) Naproxen 250 MG Oral Tablet naproxen 250 mg tablet 1 t ab as needed naproxen 250 mg tablet 1 tab as needed completed naproxen 250 MG Oral Tablet [place] ([facility]) methocarbamol 750 mg tabs compl eted methocarbamol 750 mg tabs [place] ([facility]) cetirizine hydrochloride 10 MG Oral Tabl et cetirizine 10 mg tablet 1 tab as needed cetirizine 10 mg tablet 1 tab as needed completed cetirizine hydrochloride 10 MG Oral Tablet [place] ([facility]) fluticasone propionate 50 mcg/actuation nasal spray,suspension [id number] completed fluticasone propionate 0.05 MG/ACTUAT Metered Dose Nasal [place] ([facility]) Lidocaine Hydrochloride 30 MG/ML Topical Cream lidocai ne HCl 3 % topical cream lidocaine HCl 3 % topical cream comple sonja lidocaine hydrochloride 30 MG/ML Topical Cream [place] ([facility]) 24 HR venlafaxine 75 MG Extended Release Oral Capsule venlafaxine ER 75 mg capsule,extended release 24 hr TAKE ONE CAPSULE BY MOUTH EVERY DAY WITH FOOD venlafaxine ER 75 mg capsule,extended release 24 hr TAKE ONE CAPSULE BY MOUTH EVERY DAY WITH FOOD completed 24 HR venlafaxine 75 MG Extended Release Oral Capsule [place] ([facility]) amoxicillin 500 mg caps completed amoxicillin 500 mg caps [place] ([facility]) Lorazepam 1 MG Oral Tablet lorazepam 1 mg tablet lorazepam 1 mg tablet completed lorazepam 1 MG Oral Table t [place] ([facility]) baclofen 10 mg tabs completed baclofen 10 mg tabs [place] ([facility]) 24 HR venlafaxine 75 MG Extended Release Oral Capsule venlafaxine ER 75 mg capsule,extended release 24 hr TAKE ONE CAPSULE BY MOUTH EVERY DAY WITH FOOD venlafaxine ER 75 mg capsule,extended release 24 hr TAKE ONE CAPSULE BY MOUTH EVERY DAY WITH FOOD completed 24 HR venlafaxine 75 MG Extended Release Oral Capsule [place] ([facility]) gabapentin 800 mg tabs completed gabapentin 800 mg tabs [place] ([facility]) 24 HR venlafaxine 75 MG Extended Release Oral Capsule venlafaxine ER 75 mg capsule,extended release 24 hr TAKE ONE CAPSULE BY MOUTH EVERY DAY WITH FOOD venlafaxine ER 75 mg capsule,extended release 24 hr TAKE ONE CAPSULE BY MOUTH EVERY DAY WITH FOOD completed 24 HR venlafaxine 75 MG Extended Release Oral Capsule [place] ([facility]) brimonidine tartrate 0.2 % soln completed brimonidine tartrate 0.2 % soln [place] ([facility]) ibuprofen 800 mg tabs completed ibuprofen 800 mg tabs [place] ([facility]) hydroco/apap tab 5-325mg completed hydroco/apap tab 5-325mg [place] ([facility]) Lidocaine Hydrochloride 30 MG/ML Topical Cream lidocai ne HCl 3 % topical cream lidocaine HCl 3 % topical cream comple sonja lidocaine hydrochloride 30 MG/ML Topical Cream [place] ([facility]) gabapentin 800 mg tabs completed gabapentin 800 mg tabs [place] ([facility]) ibuprofen 800 mg tabs completed ibuprofen 800 mg tabs [place] ([facility]) fluticasone propionate 50 mcg/act susp completed fluticasone propionate 50 mcg/act susp [place] ([facility]) Amoxicillin 500 MG Oral Capsule amoxicillin 500 mg cap joe amoxicillin 500 mg capsule completed amoxicillin 50 0 MG Oral Capsule [place] ([facility]) ibuprofen 800 mg tabs completed ibuprofen 800 mg tabs [place] ([facility]) amoxicillin 500 mg caps completed amoxicillin 500 mg caps [place] ([facility]) methocarbamol 750 mg tabs compl eted methocarbamol 750 mg tabs [place] ([facility]) fluticasone propionate 50 mcg/act susp completed fluticasone propionate 50 mcg/act susp [place] ([facility]) Lidocaine Hydrochloride 30 MG/ML Topical Cream lidocai ne HCl 3 % topical cream lidocaine HCl 3 % topical cream comple sonja lidocaine hydrochloride 30 MG/ML Topical Cream [place] ([facility]) methylprednisolone dose pack 4 mg tbpk completed methylprednisolone dose pack 4 mg tbpk [place] ([facility]) fluticasone propionate 50 mcg/act susp completed fluticasone propionate 50 mcg/act susp [place] ([facility]) brimonidine tartrate 0.2 % soln completed brimonidine tartrate 0.2 % soln [place] ([facility]) ibuprofen 800 mg tabs completed ibuprofen 800 mg tabs [place] ([facility]) amoxicillin 500 mg caps completed amoxicillin 500 mg caps [place] ([facility]) brimonidine tartrate 0.2 % soln completed brimonidine tartrate 0.2 % soln [place] ([facility]) gabapentin 800 mg tabs completed gabapentin 800 mg tabs [place] ([facility]) latanoprost 0.005 % soln completed latanoprost 0.005 % soln [place] ([facility]) tramadol hcl 50 mg tabs completed tramadol hcl 50 mg tabs [place] ([facility]) tramadol hcl 50 mg tabs completed tramadol hcl 50 mg tabs [facility] [place] [facility]) paroxetine hydrochloride 10 mg tabs completed paroxetine hydrochloride 10 mg tabs [facility] [place] [facility]) albuterol sulfate hfa 108 mcg/act aers completed albuterol sulfate hfa 108 mcg/act aers [place] ([facility]) albuterol sulfate HFA 90 mcg/actuation a erosol inhaler USE 2 PUFFS BY MOUTH EVERY 4 HOURS NEEDED FOR COUGH [id number] com pleted [id number] 200 ACTUAT albuterol 0.09 MG/ACTUAT Metered Dose Inhaler [facility] [place] ([facility]) albuterol sulfate hfa 108 mcg/act aers completed albuterol sulfate hfa 108 mcg/act aers [facility] [place] [facility]) fluticasone propionate 50 mcg/act susp completed fluticasone propionate 50 mcg/act susp [facility] [place] [facility]) methylprednisolone dose pack 4 mg tbpk completed methylprednisolone dose pack 4 mg tbpk [facility] [place] [facility]) cetirizine hydrochloride 10 MG Oral Tabl et cetirizine 10 mg tablet 1 tab as needed cetirizine 10 mg tablet 1 tab as needed completed cetirizine hydrochloride 10 MG Oral Tablet [facility] [place] ([facility]) Amoxicillin 500 MG Oral Capsule amoxicillin 500 mg cap joe amoxicillin 500 mg capsule completed amoxicillin 50 0 MG Oral Capsule [facility] [place] [facility]) albuterol sulfate hfa 108 mcg/act aers completed albuterol sulfate hfa 108 mcg/act aers [facility] [place] [facility]) Lorazepam 1 MG Oral Tablet lorazepam 1 mg tablet lorazepam 1 mg tablet completed lorazepam 1 MG Oral Table t [place] ([facility]) Carisoprodol 350 MG Oral Tablet carisopr odol 350 mg tablet TAKE ONE TABLET BY MOUTH THREE TIMES A DAY NEEDED MAXIMUM DAILY DOSE 3 carisoprodol 350 mg tablet TAKE ONE TABLET BY MOUTH THREE TIMES A DAY NEEDED MAXIMUM DAILY DOSE 3 completed carisoprodol 350 MG Oral Tablet [facility] [place] [facility] [place]) methocarbamol 750 mg tabs compl eted methocarbamol 750 mg tabs [place] [facility]) ketotifen fumarate 0.025 % soln completed ketotifen fumarate 0.025 % soln [place]) latanoprost 0.005 % soln completed latanoprost 0.005 % soln [place]) brimonidine tartrate 0.2 % soln completed brimonidine tartrate 0.2 % soln [place]) methocarbamol 750 mg tabs compl eted methocarbamol 750 mg tabs [place] [facility]) naproxen 500 mg tabs completed naproxen 500 mg tabs [place] [facility]) Methocarbamol 750 MG Oral Tablet methoca rbamol 750 mg tablet TAKE ONE TABLET BY MOUTH THREE TIMES A DAY NEEDED methocarbamol 750 mg tablet TAKE ONE TAB LET BY MOUTH THREE TIMES A DAY NEEDED comp leted methocarbamol 750 MG Oral Tablet [place] ([facility]) methylprednisolone dose pack 4 mg tbpk completed methylprednisolone dose pack 4 mg tbpk [place] [facility]) venlafaxine hydrochloride er 75 mg cp24 completed venlafaxine hydrochloride er 75 mg cp24 [place] [facility]) naproxen 500 mg tabs completed naproxen 500 mg tabs [place] [facility]) Lorazepam 1 MG Oral Tablet lorazepam 1 mg tablet lorazepam 1 mg tablet completed lorazepam 1 MG Oral Table t [place] ([facility]) Amoxicillin 500 MG Oral Capsule amoxicillin 500 mg cap joe amoxicillin 500 mg capsule completed amoxicillin 50 0 MG Oral Capsule [place] ([facility]) ibuprofen 800 mg tabs completed ibuprofen 800 mg tabs [place] [facility]) zonisamide 50 MG Oral Capsule zonisamide 50 mg capsule TAKE ONE CAPSULE BY MOUTH TWICE A DAY zonisamide 50 mg capsule TAKE ONE CAPSULE BY MOUTH TWICE A DAY completed zonisamide 50 MG Oral Capsule [place] [facility]) Naproxen 500 MG Oral Tablet naproxen 500 mg tablet naproxen 500 mg ta blet completed naproxen 500 MG Oral Tablet [place] [facility]) fluconazole 150 mg tabs completed fluconazole 150 mg tabs [place] [facility]) Naproxen 250 MG Oral Tablet naproxen 250 mg tablet 1 t ab as needed naproxen 250 mg tablet 1 tab as needed completed naproxen 250 MG Oral Tablet [place] ([facility]) naproxen 500 mg tabs completed naproxen 500 mg tabs [place] [facility]) latanoprost 0.005 % soln completed latanoprost 0.005 % soln [place]) ibuprofen 800 mg tabs completed ibuprofen 800 mg tabs [place] [facility]) tramadol hcl 50 mg tabs completed tramadol hcl 50 mg tabs [place] [facility]) fluconazole 150 mg tabs completed fluconazole 150 mg tabs [place] [facility]) ibuprofen 800 mg tabs completed ibuprofen 800 mg tabs [place] [facility]) Naproxen 250 MG Oral Tablet naproxen 250 mg tablet 1 t ab as needed naproxen 250 mg tablet 1 tab as needed completed naproxen 250 MG Oral Tablet [place] [facility]) Lidocaine Hydrochloride 30 MG/ML Topical Cream lidocai ne HCl 3 % topical cream lidocaine HCl 3 % topical cream comple sonja lidocaine hydrochloride 30 MG/ML Topical Cream [place] [facility]) lidoc/banop/mi ac SWISH AND SPIT WITH 10 ML FOUR TIMES A DAY NEEDED FOR MUCOSITIS completed lidoc/ banop/mi ac [place] [facility]) Ibuprofen 600 MG Oral Tablet ibuprofen 600 mg tablet ibuprofen 6 00 mg tablet completed ibuprofen 600 MG Oral Tablet [place] ([facility]) albuterol sulfate hfa 108 mcg/act aers completed albuterol sulfate hfa 108 mcg/act aers [place] [facility]) paroxetine 10 mg tablet [id number] complet ed paroxetine hydrochloride 10 MG Oral Tablet [place] ([facility]) ibuprofen 800 mg tabs completed ibuprofen 800 mg tabs [place] ([facility]) [place] [employer] 1,000 mg capsule Take 1 capsule every day by oral r oute. [id number] 1 capsule(s) completed [place] [employer] 1,000 mg capsule [place] [facility]) amoxicillin 500 mg caps completed amoxicillin 500 mg caps [place] [facility]) 24 HR venlafaxine 75 MG Extended Release Oral Capsule venlafaxine ER 75 mg capsule,extended release 24 hr TAKE ONE CAPSULE BY MOUTH EVERY DAY WITH FOOD venlafaxine ER 75 mg capsule,extended release 24 hr TAKE ONE CAPSULE BY MOUTH EVERY DAY WITH FOOD completed 24 HR venlafaxine 75 MG Extended Release Oral Capsule [place] ([facility]) 24 HR venlafaxine 75 MG Extended Release Oral Capsule venlafaxine ER 75 mg capsule,extended release 24 hr TAKE ONE CAPSULE BY MOUTH EVERY DAY WITH FOOD venlafaxine ER 75 mg capsule,extended release 24 hr TAKE ONE CAPSULE BY MOUTH EVERY DAY WITH FOOD completed 24 HR venlafaxine 75 MG Extended Release Oral Capsule [place] ([facility]) paroxetine hydrochloride 10 mg tabs completed paroxetine hydrochloride 10 mg tabs [place] [facility]) fluconazole 150 mg tabs completed fluconazole 150 mg tabs [place] ([facility]) Amoxicillin 500 MG Oral Capsule amoxicillin 500 mg cap joe amoxicillin 500 mg capsule completed amoxicillin 50 0 MG Oral Capsule [place] ([facility]) Amoxicillin 500 MG Oral Capsule amoxicillin 500 mg cap joe amoxicillin 500 mg capsule completed amoxicillin 50 0 MG Oral Capsule [place] ([facility]) fluticasone propionate 50 mcg/actuation nasal spray,suspension [id number] completed fluticasone propionate 0.05 MG/ACTUAT Metered Dose Nasal [place] ([facility]) Naproxen 250 MG Oral Tablet naproxen 250 mg tablet 1 t ab as needed naproxen 250 mg tablet 1 tab as needed completed naproxen 250 MG Oral Tablet [place] ([facility]) Ibuprofen 600 MG Oral Tablet ibuprofen 600 mg tablet ibuprofen 6 00 mg tablet completed ibuprofen 600 MG Oral Tablet [place] ([facility]) gabapentin 800 mg tabs completed gabapentin 800 mg tabs [place] ([facility]) Methocarbamol 750 MG Oral Tablet methoca rbamol 750 mg tablet TAKE ONE TABLET BY MOUTH THREE TIMES A DAY NEEDED methocarbamol 750 mg tablet TAKE ONE TAB LET BY MOUTH THREE TIMES A DAY NEEDED comp leted methocarbamol 750 MG Oral Tablet [place] ([facility]) amoxicillin 500 mg caps completed amoxicillin 500 mg caps [place] ([facility]) naproxen 500 mg tabs completed naproxen 500 mg tabs [place] [facility]) gabapentin 800 mg tabs completed gabapentin 800 mg tabs [place] [facility]) hydroco/apap tab 5-325mg completed hydroco/apap tab 5-325mg [place] ([facility]) Amoxicillin 500 MG Oral Capsule amoxicillin 500 mg cap joe amoxicillin 500 mg capsule completed amoxicillin 50 0 MG Oral Capsule [place] ([facility]) Baclofen 10 MG Oral Tablet baclofen 10 m g tablet TAKE ONE TABLET BY MOUTH THREE TIMES A DAY NEEDED baclofen 10 mg tablet TAKE ONE TABLET BY MOUTH THREE TIMES A DAY NEEDED completed baclof en 10 MG Oral Tablet [place] ([facility]) methylprednisolone dose pack 4 mg tbpk completed methylprednisolone dose pack 4 mg tbpk [place] ([facility]) Naproxen 250 MG Oral Tablet naproxen 250 mg tablet 1 t ab as needed naproxen 250 mg tablet 1 tab as needed completed naproxen 250 MG Oral Tablet [place] ([facility]) tramadol hcl 50 mg tabs completed tramadol hcl 50 mg tabs [place] ([facility]) 24 HR venlafaxine 75 MG Extended Release Oral Capsule venlafaxine ER 75 mg capsule,extended release 24 hr TAKE ONE CAPSULE BY MOUTH EVERY DAY WITH FOOD venlafaxine ER 75 mg capsule,extended release 24 hr TAKE ONE CAPSULE BY MOUTH EVERY DAY WITH FOOD completed 24 HR venlafaxine 75 MG Extended Release Oral Capsule [facility] [place] [facility]) baclofen 10 mg tabs completed baclofen 10 mg tabs [facility] [place] [facility]) venlafaxine hydrochloride er 75 mg cp24 completed venlafaxine hydrochloride er 75 mg cp24 [place] [facility]) albuterol sulfate hfa 108 mcg/act aers completed albuterol sulfate hfa 108 mcg/act aers [place] [facility]) Omeprazole 40 MG Delayed Release Oral Ca psule omeprazole 40 mg capsule,delayed release TAKE 1 CAPSULE BY MOUTH 30 MINUTES BEFORE MORNING MEAL ONCE A DAY omeprazole 40 mg capsule,delayed release TAKE 1 CAPSULE BY MOUTH 30 MINUTES BEFORE MORNING MEAL ONCE A DAY complet ed omeprazole 40 MG Delayed Release Oral Capsule [place] ([facility]) tramadol hcl 50 mg tabs completed tramadol hcl 50 mg tabs [place] [facility]) gabapentin 800 mg tabs completed gabapentin 800 mg tabs [place] [facility]) fluticasone propionate 50 mcg/actuation nasal spray,suspension [id number] completed fluticasone propionate 0.05 MG/ACTUAT Metered Dose Nasal [place] ([facility]) fluconazole 150 mg tabs completed fluconazole 150 mg tabs [place] [facility]) venlafaxine hydrochloride er 75 mg cp24 completed venlafaxine hydrochloride er 75 mg cp24 [facility] [place] [facility]) Brimonidine tartrate 2 MG/ML Ophthalmic Solution brimonidine 0.2 % eye drops INSTILL 1 DROP INTO BOTH EYES TWICE A DAY brimonidine 0.2 % eye drops INSTILL 1 DROP INTO BOTH EYES TWICE A DAY comple sonja brimonidine tartrate 2 MG/ML Ophthalmic Solution [place] ([facility]) [place] [employer] 1,000 mg capsule Take 1 capsule every day by oral r oute. [id number] 1 capsule(s) completed [place] [employer] 1,000 mg capsule [facility] [place] [facility]) methylprednisolone dose pack 4 mg tbpk completed methylprednisolone dose pack 4 mg tbpk [facility] [place] [facility]) baclofen 10 mg tabs completed baclofen 10 mg tabs [place] ([facility]) methocarbamol 750 mg tabs compl eted methocarbamol 750 mg tabs [place] ([facility]) Ibuprofen 600 MG Oral Tablet ibuprofen 600 mg tablet ibuprofen 6 00 mg tablet completed ibuprofen 600 MG Oral Tablet [facility] [place] [facility]) ibuprofen 800 mg tabs completed ibuprofen 800 mg tabs [place] [facility]) [place] [employer] 1,000 mg capsule Take 1 capsule every day by oral r oute. [id number] 1 capsule(s) completed [place] [employer] 1,000 mg capsule [place] ([facility]) fluticasone propionate 50 mcg/actuation nasal spray,suspension [id number] completed fluticasone propionate 0.05 MG/ACTUAT Metered Dose Nasal [place] [facility] [place] [facility]) methylprednisolone dose pack 4 mg tbpk completed methylprednisolone dose pack 4 mg tbpk [place] [facility]) baclofen 10 mg tabs completed baclofen 10 mg tabs [place] [facility]) albuterol sulfate hfa 108 mcg/act aers completed albuterol sulfate hfa 108 mcg/act aers [place] [facility]) brimonidine tartrate 0.2 % soln completed brimonidine tartrate 0.2 % soln [place] [facility]) Methocarbamol 750 MG Oral Tablet methoca rbamol 750 mg tablet TAKE ONE TABLET BY MOUTH THREE TIMES A DAY NEEDED methocarbamol 750 mg tablet TAKE ONE TAB LET BY MOUTH THREE TIMES A DAY NEEDED comp leted methocarbamol 750 MG Oral Tablet [place] ([facility]) Naproxen 500 MG Oral Tablet naproxen 500 mg tablet naproxen 500 mg ta blet completed naproxen 500 MG Oral Tablet [place] ([facility]) brimonidine tartrate 0.2 % soln completed brimonidine tartrate 0.2 % soln [place]) hydroco/apap tab 5-325mg completed hydroco/apap tab 5-325mg [place] ([facility]) paroxetine hydrochloride 10 mg tabs completed paroxetine hydrochloride 10 mg tabs [place] [facility]) methylprednisolone dose pack 4 mg tbpk completed methylprednisolone dose pack 4 mg tbpk [place] [facility]) Carisoprodol 350 MG Oral Tablet carisopr odol 350 mg tablet TAKE ONE TABLET BY MOUTH THREE TIMES A DAY NEEDED MAXIMUM DAILY DOSE 3 carisoprodol 350 mg tablet TAKE ONE TABLET BY MOUTH THREE TIMES A DAY NEEDED MAXIMUM DAILY DOSE 3 completed carisoprodol 350 MG Oral Tablet [place] ([facility]) Carisoprodol 350 MG Oral Tablet carisopr odol 350 mg tablet TAKE ONE TABLET BY MOUTH THREE TIMES A DAY NEEDED MAXIMUM DAILY DOSE 3 carisoprodol 350 mg tablet TAKE ONE TABLET BY MOUTH THREE TIMES A DAY NEEDED MAXIMUM DAILY DOSE 3 completed carisoprodol 350 MG Oral Tablet [place] ([facility]) baclofen 10 mg tabs completed baclofen 10 mg tabs [place] [facility]) fluconazole 150 mg tabs completed fluconazole 150 mg tabs [place] [facility]) methocarbamol 750 mg tabs compl eted methocarbamol 750 mg tabs [place] ([facility] methocarbamol 750 mg tabs compl eted methocarbamol 750 mg tabs [place] ([facility]) artificial tears 1.4 % soln com pleted artificial tears 1.4 % soln [place] ([facility]) ibuprofen 800 mg tabs completed ibuprofen 800 mg tabs [place] [facility]) Omeprazole 40 MG Delayed Release Oral Ca psule omeprazole 40 mg capsule,delayed release TAKE 1 CAPSULE BY MOUTH 30 MINUTES BEFORE MORNING MEAL ONCE A DAY omeprazole 40 mg capsule,delayed release TAKE 1 CAPSULE BY MOUTH 30 MINUTES BEFORE MORNING MEAL ONCE A DAY complet ed omeprazole 40 MG Delayed Release Oral Capsule [place] ([facility]) Baclofen 10 MG Oral Tablet baclofen 10 m g tablet TAKE ONE TABLET BY MOUTH THREE TIMES A DAY NEEDED baclofen 10 mg tablet TAKE ONE TABLET BY MOUTH THREE TIMES A DAY NEEDED completed baclof en 10 MG Oral Tablet [place] ([facility]) gabapentin 800 mg tabs completed gabapentin 800 mg tabs [place] [facility]) Amoxicillin 500 MG Oral Capsule amoxicillin 500 mg cap joe amoxicillin 500 mg capsule completed amoxicillin 50 0 MG Oral Capsule [place] ([facility]) Ibuprofen 600 MG Oral Tablet ibuprofen 600 mg tablet ibuprofen 6 00 mg tablet completed ibuprofen 600 MG Oral Tablet [place] ([facility]) Baclofen 10 MG Oral Tablet baclofen 10 m g tablet TAKE ONE TABLET BY MOUTH THREE TIMES A DAY NEEDED baclofen 10 mg tablet TAKE ONE TABLET BY MOUTH THREE TIMES A DAY NEEDED completed baclof en 10 MG Oral Tablet [place] ([facility]) baclofen 10 mg tabs completed baclofen 10 mg tabs [place] ([facility] Lidocaine Hydrochloride 30 MG/ML Topical Cream lidocai ne HCl 3 % topical cream lidocaine HCl 3 % topical cream comple sonja lidocaine hydrochloride 30 MG/ML Topical Cream [place] ([facility]) venlafaxine hydrochloride er 75 mg cp24 completed venlafaxine hydrochloride er 75 mg cp24 [place] ([facility]) latanoprost 0.005 % soln completed latanoprost 0.005 % soln [place] ([facility]) albuterol sulfate HFA 90 mcg/actuation a erosol inhaler USE 2 PUFFS BY MOUTH EVERY 4 HOURS NEEDED FOR COUGH [id number] com pleted [id number] 200 ACTUAT albuterol 0.09 MG/ACTUAT Metered Dose Inhaler [place] ([facility]) naproxen 500 mg tabs completed naproxen 500 mg tabs [place] ([facility]) paroxetine 10 mg tablet [id number] complet ed paroxetine hydrochloride 10 MG Oral Tablet [place] ([facility] amoxicillin 500 mg caps completed amoxicillin 500 mg caps [place] ([facility]) albuterol sulfate hfa 108 mcg/act aers completed albuterol sulfate hfa 108 mcg/act aers [place] ([facility]) Ibuprofen 600 MG Oral Tablet ibuprofen 600 mg tablet ibuprofen 6 00 mg tablet completed ibuprofen 600 MG Oral Tablet [place] ([facility]) Fluconazole 150 MG Oral Tablet fluconazo le 150 mg tablet TAKE ONE TABLET BY MOUTH TODAY AND REPEAT IN 10 DAYS fluconazole 150 mg tablet TAKE ONE TABLE T BY MOUTH TODAY AND REPEAT IN 10 DAYS comp leted fluconazole 150 MG Oral Tablet [place] ([facility]) artificial tears 1.4 % soln com pleted artificial tears 1.4 % soln [place] ([facility]) baclofen 10 mg tabs completed baclofen 10 mg tabs [place] ([facility]) amoxicillin 500 mg caps completed amoxicillin 500 mg caps [place] ([facility]) ketotifen fumarate 0.025 % soln completed ketotifen fumarate 0.025 % soln [facility] [place] [facility]) [place] 1,000 mg capsule Take 1 capsule every day by oral r oute. [id number] 1 capsule(s) completed [place] 1,000 mg capsule [place] ([facility]) naproxen 500 mg tabs completed naproxen 500 mg tabs [place] ([facility]) venlafaxine hydrochloride er 75 mg cp24 completed venlafaxine hydrochloride er 75 mg cp24 [place] ([facility]) latanoprost 0.005 % soln completed latanoprost 0.005 % soln [place] ([facility]) gabapentin 800 mg tabs completed gabapentin 800 mg tabs [place] ([facility]) albuterol sulfate HFA 90 mcg/actuation a erosol inhaler USE 2 PUFFS BY MOUTH EVERY 4 HOURS NEEDED FOR COUGH [id number] com pleted [id number] 200 ACTUAT albuterol 0.09 MG/ACTUAT Metered Dose Inhaler [place] ([facility]) fluticasone propionate 50 mcg/act susp completed fluticasone propionate 50 mcg/act susp [place] ([facility]) Fluconazole 150 MG Oral Tablet fluconazole 150 mg tabl et fluconazole 150 mg tablet completed fluconazole 150 MG Oral Tablet [place] ([facility]) fluconazole 150 mg tabs completed fluconazole 150 mg tabs [place] ([facility]) fluticasone propionate 50 mcg/act susp completed fluticasone propionate 50 mcg/act susp [place] ([facility]) Ibuprofen 600 MG Oral Tablet ibuprofen 600 mg tablet ibuprofen 6 00 mg tablet completed ibuprofen 600 MG Oral Tablet [place] ([facility]) Baclofen 10 MG Oral Tablet baclofen 10 m g tablet TAKE ONE TABLET BY MOUTH THREE TIMES A DAY NEEDED baclofen 10 mg tablet TAKE ONE TABLET BY MOUTH THREE TIMES A DAY NEEDED completed baclof en 10 MG Oral Tablet [place] ([facility]) Lidocaine Hydrochloride 30 MG/ML Topical Cream lidocai ne HCl 3 % topical cream lidocaine HCl 3 % topical cream comple sonja lidocaine hydrochloride 30 MG/ML Topical Cream [place] ([facility]) Brimonidine tartrate 2 MG/ML Ophthalmic Solution brimonidine 0.2 % eye drops INSTILL 1 DROP INTO BOTH EYES TWICE A DAY brimonidine 0.2 % eye drops INSTILL 1 DROP INTO BOTH EYES TWICE A DAY comple [place]ja brimonidine tartrate 2 MG/ML Ophthalmic Solution [place] ([facility]) Lorazepam 1 MG Oral Tablet lorazepam 1 mg tablet lorazepam 1 mg tablet completed lorazepam 1 MG Oral Table t [place] ([facility]) 24 HR venlafaxine 75 MG Extended Release Oral Capsule venlafaxine ER 75 mg capsule,extended release 24 hr TAKE ONE CAPSULE BY MOUTH EVERY DAY WITH FOOD venlafaxine ER 75 mg capsule,extended release 24 hr TAKE ONE CAPSULE BY MOUTH EVERY DAY WITH FOOD completed 24 HR venlafaxine 75 MG Extended Release Oral Capsule [place] ([facility]) naproxen 500 mg tabs completed naproxen 500 mg tabs [place] ([facility]) lidoc/banop/mi ac SWISH AND SPIT WITH 10 ML FOUR TIMES A DAY NEEDED FOR MUCOSITIS completed lidoc/ banop/mi ac [place] ([facility]) amoxicillin 500 mg caps completed amoxicillin 500 mg caps [place] ([facility]) gabapentin 800 mg tabs completed gabapentin 800 mg tabs [place] [facility]) Lorazepam 1 MG Oral Tablet lorazepam 1 mg tablet lorazepam 1 mg tablet completed lorazepam 1 MG Oral Table t [place] ([facility]) albuterol sulfate hfa 108 mcg/act aers completed albuterol sulfate hfa 108 mcg/act aers [place] ([facility]) fluticasone propionate 50 mcg/act susp completed fluticasone propionate 50 mcg/act susp [place] ([facility]) Amoxicillin 500 MG Oral Capsule amoxicillin 500 mg cap joe amoxicillin 500 mg capsule completed amoxicillin 50 0 MG Oral Capsule [place] ([facility]) ibuprofen 800 mg tabs completed ibuprofen 800 mg tabs [place] ([facility]) Lidocaine Hydrochloride 30 MG/ML Topical Cream lidocai ne HCl 3 % topical cream lidocaine HCl 3 % topical cream comple sonja lidocaine hydrochloride 30 MG/ML Topical Cream [place] ([facility]) cetirizine hydrochloride 10 MG Oral Tabl et cetirizine 10 mg tablet 1 tab as needed cetirizine 10 mg tablet 1 tab as needed completed cetirizine hydrochloride 10 MG Oral Tablet [place] ([facility]) latanoprost 0.005 % soln completed latanoprost 0.005 % soln [place] ([facility]) paroxetine hydrochloride 10 mg tabs completed paroxetine hydrochloride 10 mg tabs [place] ([facility]) Naproxen 500 MG Oral Tablet naproxen 500 mg tablet naproxen 500 mg ta blet completed naproxen 500 MG Oral Tablet [place] ([facility] Amoxicillin 500 MG Oral Capsule amoxicillin 500 mg cap joe amoxicillin 500 mg capsule completed amoxicillin 50 0 MG Oral Capsule [place] ([facility]) Ibuprofen 600 MG Oral Tablet ibuprofen 600 mg tablet ibuprofen 6 00 mg tablet completed ibuprofen 600 MG Oral Tablet [place] ([facility]) Fluconazole 150 MG Oral Tablet fluconazole 150 mg tabl et fluconazole 150 mg tablet completed fluconazole 150 MG Oral Tablet [place] ([facility]) Naproxen 250 MG Oral Tablet naproxen 250 mg tablet 1 t ab as needed naproxen 250 mg tablet 1 tab as needed completed naproxen 250 MG Oral Tablet [place] ([facility]) Lidocaine Hydrochloride 30 MG/ML Topical Cream lidocai ne HCl 3 % topical cream lidocaine HCl 3 % topical cream comple sonja lidocaine hydrochloride 30 MG/ML Topical Cream [place] ([facility]) latanoprost 0.005 % soln completed latanoprost 0.005 % soln [place] ([facility]) tramadol hcl 50 mg tabs completed tramadol hcl 50 mg tabs [place] ([facility]) Carisoprodol 350 MG Oral Tablet carisopr odol 350 mg tablet TAKE ONE TABLET BY MOUTH THREE TIMES A DAY NEEDED MAXIMUM DAILY DOSE 3 carisoprodol 350 mg tablet TAKE ONE TABLET BY MOUTH THREE TIMES A DAY NEEDED MAXIMUM DAILY DOSE 3 completed carisoprodol 350 MG Oral Tablet [place] ([facility]) amoxicillin 500 mg caps completed amoxicillin 500 mg caps [place] ([facility]) baclofen 10 mg tabs completed baclofen 10 mg tabs [place] ([facility]) artificial tears 1.4 % soln com pleted artificial tears 1.4 % soln [place] ([facility]) paroxetine 10 mg tablet [id number] complet ed paroxetine hydrochloride 10 MG Oral Tablet [place] ([facility]) Lidocaine Hydrochloride 30 MG/ML Topical Cream lidocai ne HCl 3 % topical cream lidocaine HCl 3 % topical cream comple sonja lidocaine hydrochloride 30 MG/ML Topical Cream [place] ([facility]) Lidocaine Hydrochloride 30 MG/ML Topical Cream lidocai ne HCl 3 % topical cream lidocaine HCl 3 % topical cream comple sonja lidocaine hydrochloride 30 MG/ML Topical Cream [place] ([facility]) baclofen 10 mg tabs completed baclofen 10 mg tabs [place] ([facility]) fluconazole 150 mg tabs completed fluconazole 150 mg tabs [place] ([facility]) Amoxicillin 500 MG Oral Capsule amoxicillin 500 mg cap joe amoxicillin 500 mg capsule completed amoxicillin 50 0 MG Oral Capsule [place] ([facility]) naproxen 500 mg tabs completed naproxen 500 mg tabs [place] ([facility]) naproxen 500 mg tabs completed naproxen 500 mg tabs [place] ([facility]) [place] 1,000 mg capsule Take 1 capsule every day by oral r oute. [id number] 1 capsule(s) completed [place] 1,000 mg capsule [place] ([facility]) brimonidine tartrate 0.2 % soln completed brimonidine tartrate 0.2 % soln [place] ([facility]) ibuprofen 800 mg tabs completed ibuprofen 800 mg tabs [place] ([facility]) latanoprost 0.005 % soln completed latanoprost 0.005 % soln [place] ([facility]) paroxetine hydrochloride 10 mg tabs completed paroxetine hydrochloride 10 mg tabs [place] ([facility]) latanoprost 0.005 % soln completed latanoprost 0.005 % soln [place] ([facility]) fluticasone propionate 50 mcg/act susp completed fluticasone propionate 50 mcg/act susp [place] ([facility]) methocarbamol 750 mg tabs compl eted methocarbamol 750 mg tabs [place] ([facility]) fluconazole 150 mg tabs completed fluconazole 150 mg tabs [place] ([facility]) Carisoprodol 350 MG Oral Tablet carisopr odol 350 mg tablet TAKE ONE TABLET BY MOUTH THREE TIMES A DAY NEEDED MAXIMUM DAILY DOSE 3 carisoprodol 350 mg tablet TAKE ONE TABLET BY MOUTH THREE TIMES A DAY NEEDED MAXIMUM DAILY DOSE 3 completed carisoprodol 350 MG Oral Tablet [place] ([facility]) Carisoprodol 350 MG Oral Tablet carisopr odol 350 mg tablet TAKE ONE TABLET BY MOUTH THREE TIMES A DAY NEEDED MAXIMUM DAILY DOSE 3 carisoprodol 350 mg tablet TAKE ONE TABLET BY MOUTH THREE TIMES A DAY NEEDED MAXIMUM DAILY DOSE 3 completed carisoprodol 350 MG Oral Tablet [place] ([facility]) artificial tears 1.4 % soln com pleted artificial tears 1.4 % soln [place] ([facility]) ketotifen fumarate 0.025 % soln completed ketotifen fumarate 0.025 % soln [place] ([facility]) Amoxicillin 500 MG Oral Capsule amoxicillin 500 mg cap joe amoxicillin 500 mg capsule completed amoxicillin 50 0 MG Oral Capsule [place] ([facility]) Naproxen 250 MG Oral Tablet naproxen 250 mg tablet 1 t ab as needed naproxen 250 mg tablet 1 tab as needed completed naproxen 250 MG Oral Tablet [place] ([facility]) artificial tears 1.4 % soln com pleted artificial tears 1.4 % soln [place] ([facility]) ibuprofen 800 mg tabs completed ibuprofen 800 mg tabs [place] ([facility]) paroxetine hydrochloride 10 mg tabs completed paroxetine hydrochloride 10 mg tabs [place] ([facility]) gabapentin 800 mg tabs completed gabapentin 800 mg tabs [place] ([facility]) methylprednisolone dose pack 4 mg tbpk completed methylprednisolone dose pack 4 mg tbpk [place] ([facility]) ibuprofen 800 mg tabs completed ibuprofen 800 mg tabs [place] ([facility]) naproxen 500 mg tabs completed naproxen 500 mg tabs [place] ([facility]) Carisoprodol 350 MG Oral Tablet carisopr odol 350 mg tablet TAKE ONE TABLET BY MOUTH THREE TIMES A DAY NEEDED MAXIMUM DAILY DOSE 3 carisoprodol 350 mg tablet TAKE ONE TABLET BY MOUTH THREE TIMES A DAY NEEDED MAXIMUM DAILY DOSE 3 completed carisoprodol 350 MG Oral Tablet [place] ([facility]) methylprednisolone dose pack 4 mg tbpk completed methylprednisolone dose pack 4 mg tbpk [place] ([facility]) tramadol hcl 50 mg tabs completed tramadol hcl 50 mg tabs [place] ([facility]) paroxetine hydrochloride 10 mg tabs completed paroxetine hydrochloride 10 mg tabs [place] ([facility]) Ibuprofen 600 MG Oral Tablet ibuprofen 600 mg tablet ibuprofen 6 00 mg tablet completed ibuprofen 600 MG Oral Tablet [place] ([facility]) fluconazole 150 mg tabs completed fluconazole 150 mg tabs [place] [facility]) ibuprofen 800 mg tabs completed ibuprofen 800 mg tabs [place] ([facility]) fluticasone propionate 50 mcg/actuation nasal spray,suspension [id number] completed fluticasone propionate 0.05 MG/ACTUAT Metered Dose Nasal [place] ([facility]) artificial tears 1.4 % soln com pleted artificial tears 1.4 % soln [place] ([facility]) Naproxen 250 MG Oral Tablet naproxen 250 mg tablet 1 t ab as needed naproxen 250 mg tablet 1 tab as needed completed naproxen 250 MG Oral Tablet [place] ([facility]) lidoc/banop/mi ac SWISH AND SPIT WITH 10 ML FOUR TIMES A DAY NEEDED FOR MUCOSITIS completed lidoc/ banop/mi ac [place] ([facility]) fluconazole 150 mg tabs completed fluconazole 150 mg tabs [place] ([facility]) Lorazepam 1 MG Oral Tablet lorazepam 1 mg tablet lorazepam 1 mg tablet completed lorazepam 1 MG Oral Table t [place] ([facility]) gabapentin 800 mg tabs completed gabapentin 800 mg tabs [place] ([facility]) Lidocaine Hydrochloride 30 MG/ML Topical Cream lidocai ne HCl 3 % topical cream lidocaine HCl 3 % topical cream comple sonja lidocaine hydrochloride 30 MG/ML Topical Cream [place] ([facility]) Naproxen 250 MG Oral Tablet naproxen 250 mg tablet 1 t ab as needed naproxen 250 mg tablet 1 tab as needed completed naproxen 250 MG Oral Tablet [place] ([facility]) [place] 1,000 mg capsule Take 1 capsule every day by oral r oute. [id number] 1 capsule(s) completed [place] 1,000 mg capsule [place] ([facility]) Naproxen 250 MG Oral Tablet naproxen 250 mg tablet 1 t ab as needed naproxen 250 mg tablet 1 tab as needed completed naproxen 250 MG Oral Tablet [place] ([facility]) gabapentin 800 mg tabs completed gabapentin 800 mg tabs [place] ([facility]) Lidocaine Hydrochloride 30 MG/ML Topical Cream lidocai ne HCl 3 % topical cream lidocaine HCl 3 % topical cream comple sonja lidocaine hydrochloride 30 MG/ML Topical Cream [place] ([facility]) Lidocaine Hydrochloride 30 MG/ML Topical Cream lidocai ne HCl 3 % topical cream lidocaine HCl 3 % topical cream comple sonja lidocaine hydrochloride 30 MG/ML Topical Cream [place] ([facility]) venlafaxine hydrochloride er 75 mg cp24 completed venlafaxine hydrochloride er 75 mg cp24 [place] ([facility]) fluticasone propionate 50 mcg/act susp completed fluticasone propionate 50 mcg/act susp [place] ([facility]) lidoc/banop/mi ac SWISH AND SPIT WITH 10 ML FOUR TIMES A DAY NEEDED FOR MUCOSITIS completed lidoc/ banop/mi ac [place] ([facility]) [place] 1,000 mg capsule Take 1 capsule every day by oral r oute. [id number] 1 capsule(s) completed [place] 1,000 mg capsule [place] ([facility]) fluticasone propionate 50 mcg/act susp completed fluticasone propionate 50 mcg/act susp [place] ([facility]) artificial tears 1.4 % soln com pleted artificial tears 1.4 % soln [place] ([facility]) brimonidine tartrate 0.2 % soln completed brimonidine tartrate 0.2 % soln [place] ([facility]) fluconazole 150 mg tabs completed fluconazole 150 mg tabs [place] ([facility]) latanoprost 0.005 % soln completed latanoprost 0.005 % soln [place] ([facility]) tramadol hcl 50 mg tabs completed tramadol hcl 50 mg tabs [place] ([facility]) paroxetine 10 mg tablet [id number] complet ed paroxetine hydrochloride 10 MG Oral Tablet [place] ([facility]) methylprednisolone dose pack 4 mg tbpk completed methylprednisolone dose pack 4 mg tbpk [place] ([facility]) tramadol hcl 50 mg tabs completed tramadol hcl 50 mg tabs [place] ([facility]) [place] 1,000 mg capsule Take 1 capsule every day by oral r oute. [id number] 1 capsule(s) completed [place] 1,000 mg capsule [place] ([facility]) Carisoprodol 350 MG Oral Tablet carisopr odol 350 mg tablet TAKE ONE TABLET BY MOUTH THREE TIMES A DAY NEEDED MAXIMUM DAILY DOSE 3 carisoprodol 350 mg tablet TAKE ONE TABLET BY MOUTH THREE TIMES A DAY NEEDED MAXIMUM DAILY DOSE 3 completed carisoprodol 350 MG Oral Tablet [place] ([facility]) Brimonidine tartrate 2 MG/ML Ophthalmic Solution brimonidine 0.2 % eye drops INSTILL 1 DROP INTO BOTH EYES TWICE A DAY brimonidine 0.2 % eye drops INSTILL 1 DROP INTO BOTH EYES TWICE A DAY comple sonja brimonidine tartrate 2 MG/ML Ophthalmic Solution [place] ([facility] paroxetine 10 mg tablet [id number] complet ed paroxetine hydrochloride 10 MG Oral Tablet [place] ([facility]) naproxen 500 mg tabs completed naproxen 500 mg tabs [place] ([facility]) brimonidine tartrate 0.2 % soln completed brimonidine tartrate 0.2 % soln [place] ([facility]) 24 HR venlafaxine 75 MG Extended Release Oral Capsule venlafaxine ER 75 mg capsule,extended release 24 hr TAKE ONE CAPSULE BY MOUTH EVERY DAY WITH FOOD venlafaxine ER 75 mg capsule,extended release 24 hr TAKE ONE CAPSULE BY MOUTH EVERY DAY WITH FOOD completed 24 HR venlafaxine 75 MG Extended Release Oral Capsule [place] ([facility]) ketotifen fumarate 0.025 % soln completed ketotifen fumarate 0.025 % soln [place] ([facility]) artificial tears 1.4 % soln com pleted artificial tears 1.4 % soln [place] ([facility]) Naproxen 500 MG Oral Tablet naproxen 500 mg tablet naproxen 500 mg ta blet completed naproxen 500 MG Oral Tablet [place] ([facility]) amoxicillin 500 mg caps completed amoxicillin 500 mg caps [place] ([facility]) fluconazole 150 mg tabs completed fluconazole 150 mg tabs [place] ([facility]) tramadol hcl 50 mg tabs completed tramadol hcl 50 mg tabs [place] ([facility]) zonisamide 50 MG Oral Capsule zonisamide 50 mg capsule TAKE ONE CAPSULE BY MOUTH TWICE A DAY zonisamide 50 mg capsule TAKE ONE CAPSULE BY MOUTH TWICE A DAY completed zonisamide 50 MG Oral Capsule [place] ([facility]) fluconazole 150 mg tabs completed fluconazole 150 mg tabs [place] ([facility]) methylprednisolone dose pack 4 mg tbpk completed methylprednisolone dose pack 4 mg tbpk [place] ([facility]) Lorazepam 1 MG Oral Tablet lorazepam 1 mg tablet lorazepam 1 mg tablet completed lorazepam 1 MG Oral Table t [place] ([facility]) latanoprost 0.005 % soln completed latanoprost 0.005 % soln [place] ([facility]) artificial tears 1.4 % soln com pleted artificial tears 1.4 % soln [place] ([facility]) [place] 1,000 mg capsule Take 1 capsule every day by oral r oute. [id number] 1 capsule(s) completed [place] 1,000 mg capsule [place] ([facility]) Lidocaine Hydrochloride 30 MG/ML Topical Cream lidocai ne HCl 3 % topical cream lidocaine HCl 3 % topical cream comple sonja lidocaine hydrochloride 30 MG/ML Topical Cream [place] ([facility]) zonisamide 50 MG Oral Capsule zonisamide 50 mg capsule TAKE ONE CAPSULE BY MOUTH TWICE A DAY zonisamide 50 mg capsule TAKE ONE CAPSULE BY MOUTH TWICE A DAY completed zonisamide 50 MG Oral Capsule [place] ([facility]) Naproxen 500 MG Oral Tablet naproxen 500 mg tablet naproxen 500 mg ta blet completed naproxen 500 MG Oral Tablet [facility] [place] [facility]) albuterol sulfate hfa 108 mcg/act aers completed albuterol sulfate hfa 108 mcg/act aers [facility] [place] [facility]) tramadol hcl 50 mg tabs completed tramadol hcl 50 mg tabs [facility] [place] [facility]) artificial tears 1.4 % soln com pleted artificial tears 1.4 % soln [place] ([facility]) Carisoprodol 350 MG Oral Tablet carisopr odol 350 mg tablet TAKE ONE TABLET BY MOUTH THREE TIMES A DAY NEEDED MAXIMUM DAILY DOSE 3 carisoprodol 350 mg tablet TAKE ONE TABLET BY MOUTH THREE TIMES A DAY NEEDED MAXIMUM DAILY DOSE 3 completed carisoprodol 350 MG Oral Tablet [facility] [place] [facility]) tramadol hcl 50 mg tabs completed tramadol hcl 50 mg tabs [facility] [place] [facility]) fluconazole 150 mg tabs completed fluconazole 150 mg tabs [facility] [place] [facility]) brimonidine tartrate 0.2 % soln completed brimonidine tartrate 0.2 % soln [facility] [place] [facility]) Brimonidine tartrate 2 MG/ML Ophthalmic Solution brimonidine 0.2 % eye drops INSTILL 1 DROP INTO BOTH EYES TWICE A DAY brimonidine 0.2 % eye drops INSTILL 1 DROP INTO BOTH EYES TWICE A DAY comple sonja brimonidine tartrate 2 MG/ML Ophthalmic Solution [place] ([facility]) Naproxen 250 MG Oral Tablet naproxen 250 mg tablet 1 t ab as needed naproxen 250 mg tablet 1 tab as needed completed naproxen 250 MG Oral Tablet [place] ([facility]) 24 HR venlafaxine 75 MG Extended Release Oral Capsule venlafaxine ER 75 mg capsule,extended release 24 hr TAKE ONE CAPSULE BY MOUTH EVERY DAY WITH FOOD venlafaxine ER 75 mg capsule,extended release 24 hr TAKE ONE CAPSULE BY MOUTH EVERY DAY WITH FOOD completed 24 HR venlafaxine 75 MG Extended Release Oral Capsule [place] ([facility]) fluticasone propionate 50 mcg/act susp completed fluticasone propionate 50 mcg/act susp [place] ([facility]) baclofen 10 mg tabs completed baclofen 10 mg tabs [place] ([facility]) albuterol sulfate hfa 108 mcg/act aers completed albuterol sulfate hfa 108 mcg/act aers [facility] [place] [facility]) Carisoprodol 350 MG Oral Tablet carisopr odol 350 mg tablet TAKE ONE TABLET BY MOUTH THREE TIMES A DAY NEEDED MAXIMUM DAILY DOSE 3 carisoprodol 350 mg tablet TAKE ONE TABLET BY MOUTH THREE TIMES A DAY NEEDED MAXIMUM DAILY DOSE 3 completed carisoprodol 350 MG Oral Tablet [place] ([facility]) tramadol hcl 50 mg tabs completed tramadol hcl 50 mg tabs [place] ([facility]) albuterol sulfate HFA 90 mcg/actuation a erosol inhaler USE 2 PUFFS BY MOUTH EVERY 4 HOURS NEEDED FOR COUGH [id number] com pleted [id number] 200 ACTUAT albuterol 0.09 MG/ACTUAT Metered Dose Inhaler [place] ([facility]) Lorazepam 1 MG Oral Tablet lorazepam 1 mg tablet lorazepam 1 mg tablet completed lorazepam 1 MG Oral Table t [place] ([facility]) albuterol sulfate hfa 108 mcg/act aers completed albuterol sulfate hfa 108 mcg/act aers [place] ([facility]) fluconazole 150 mg tabs completed fluconazole 150 mg tabs [place] ([facility]) zonisamide 50 MG Oral Capsule zonisamide 50 mg capsule TAKE ONE CAPSULE BY MOUTH TWICE A DAY zonisamide 50 mg capsule TAKE ONE CAPSULE BY MOUTH TWICE A DAY completed zonisamide 50 MG Oral Capsule [place] ([facility]) gabapentin 800 mg tabs completed gabapentin 800 mg tabs [place] ([facility]) Fluconazole 150 MG Oral Tablet fluconazole 150 mg tabl et fluconazole 150 mg tablet completed fluconazole 150 MG Oral Tablet [place] ([facility]) naproxen 500 mg tabs completed naproxen 500 mg tabs [place] ([facility]) baclofen 10 mg tabs completed baclofen 10 mg tabs [place] ([facility]) methocarbamol 750 mg tabs compl eted methocarbamol 750 mg tabs [place] ([facility]) methocarbamol 750 mg tabs compl eted methocarbamol 750 mg tabs [place] ([facility]) baclofen 10 mg tabs completed baclofen 10 mg tabs [place] ([facility]) Ibuprofen 600 MG Oral Tablet ibuprofen 600 mg tablet ibuprofen 6 00 mg tablet completed ibuprofen 600 MG Oral Tablet [place] ([facility]) albuterol sulfate hfa 108 mcg/act aers completed albuterol sulfate hfa 108 mcg/act aers [place] ([facility]) Amoxicillin 500 MG Oral Capsule amoxicillin 500 mg cap joe amoxicillin 500 mg capsule completed amoxicillin 50 0 MG Oral Capsule [place] ([facility]) brimonidine tartrate 0.2 % soln completed brimonidine tartrate 0.2 % soln [place] ([facility]) latanoprost 0.005 % soln completed latanoprost 0.005 % soln [place] [facility]) hydroco/apap tab 5-325mg completed hydroco/apap tab 5-325mg [place] ([facility]) amoxicillin 500 mg caps completed amoxicillin 500 mg caps [place] ([facility]) Brimonidine tartrate 2 MG/ML Ophthalmic Solution brimonidine 0.2 % eye drops INSTILL 1 DROP INTO BOTH EYES TWICE A DAY brimonidine 0.2 % eye drops INSTILL 1 DROP INTO BOTH EYES TWICE A DAY comple sonja brimonidine tartrate 2 MG/ML Ophthalmic Solution [place] ([facility]) fluticasone propionate 50 mcg/actuation nasal spray,suspension [id number] completed fluticasone propionate 0.05 MG/ACTUAT Metered Dose Nasal [place] ([facility]) methylprednisolone dose pack 4 mg tbpk completed methylprednisolone dose pack 4 mg tbpk [place] ([facility]) albuterol sulfate HFA 90 mcg/actuation a erosol inhaler USE 2 PUFFS BY MOUTH EVERY 4 HOURS NEEDED FOR COUGH [id number] com pleted [id number] 200 ACTUAT albuterol 0.09 MG/ACTUAT Metered Dose Inhaler [place] ([facility]) albuterol sulfate hfa 108 mcg/act aers completed albuterol sulfate hfa 108 mcg/act aers [place] ([facility]) lidoc/banop/mi ac SWISH AND SPIT WITH 10 ML FOUR TIMES A DAY NEEDED FOR MUCOSITIS completed lidoc/ banop/mi ac [place] ([facility]) hydroco/apap tab 5-325mg completed hydroco/apap tab 5-325mg [place] ([facility]) Naproxen 250 MG Oral Tablet naproxen 250 mg tablet 1 t ab as needed naproxen 250 mg tablet 1 tab as needed completed naproxen 250 MG Oral Tablet [place] ([facility]) latanoprost 0.005 % soln completed latanoprost 0.005 % soln [place] ([facility]) amoxicillin 500 mg caps completed amoxicillin 500 mg caps [place] ([facility]) brimonidine tartrate 0.2 % soln completed brimonidine tartrate 0.2 % soln [place] ([facility]) fluconazole 150 mg tabs completed fluconazole 150 mg tabs [place] ([facility]) lidoc/banop/mi ac SWISH AND SPIT WITH 10 ML FOUR TIMES A DAY NEEDED FOR MUCOSITIS completed lidoc/ banop/mi ac [place] ([facility]) methylprednisolone dose pack 4 mg tbpk completed methylprednisolone dose pack 4 mg tbpk [place] ([facility]) Naproxen 250 MG Oral Tablet naproxen 250 mg tablet 1 t ab as needed naproxen 250 mg tablet 1 tab as needed completed naproxen 250 MG Oral Tablet [place] ([facility]) cetirizine hydrochloride 10 MG Oral Tabl et cetirizine 10 mg tablet 1 tab as needed cetirizine 10 mg tablet 1 tab as needed completed cetirizine hydrochloride 10 MG Oral Tablet [place] ([facility]) gabapentin 800 mg tabs completed gabapentin 800 mg tabs [place] ([facility]) amoxicillin 500 mg caps completed amoxicillin 500 mg caps [place] ([facility]) Methocarbamol 750 MG Oral Tablet methoca rbamol 750 mg tablet TAKE ONE TABLET BY MOUTH THREE TIMES A DAY NEEDED methocarbamol 750 mg tablet TAKE ONE TAB LET BY MOUTH THREE TIMES A DAY NEEDED comp leted methocarbamol 750 MG Oral Tablet [place] ([facility]) fluconazole 150 mg tabs completed fluconazole 150 mg tabs [place] ([facility]) Amoxicillin 500 MG Oral Capsule amoxicillin 500 mg cap joe amoxicillin 500 mg capsule completed amoxicillin 50 0 MG Oral Capsule [place] ([facility]) Brimonidine tartrate 2 MG/ML Ophthalmic Solution brimonidine 0.2 % eye drops INSTILL 1 DROP INTO BOTH EYES TWICE A DAY brimonidine 0.2 % eye drops INSTILL 1 DROP INTO BOTH EYES TWICE A DAY comple sonja brimonidine tartrate 2 MG/ML Ophthalmic Solution [place] ([facility]) Ketotifen 0.25 MG/ML Ophthalmic Solution ketotifen 0.025 % (0.035 %) eye drops INSTILL 1 DROP IN EACH EYE TWO TIMES A DAY DIRECTED ketotifen 0.025 % (0.035 %) eye drops INSTILL 1 DROP IN EACH EYE TWO TIMES A DAY DIRECTED completed ketotifen 0.25 MG/ML Ophthalmic Solution [facility] [place] [facility]) brimonidine tartrate 0.2 % soln completed brimonidine tartrate 0.2 % soln [place] ([facility]) Naproxen 250 MG Oral Tablet naproxen 250 mg tablet 1 t ab as needed naproxen 250 mg tablet 1 tab as needed completed naproxen 250 MG Oral Tablet [place] ([facility]) latanoprost 0.005 % soln completed latanoprost 0.005 % soln [place] ([facility]) Lorazepam 1 MG Oral Tablet lorazepam 1 mg tablet lorazepam 1 mg tablet completed lorazepam 1 MG Oral Table t [place] ([facility]) Carisoprodol 350 MG Oral Tablet carisopr odol 350 mg tablet TAKE ONE TABLET BY MOUTH THREE TIMES A DAY NEEDED MAXIMUM DAILY DOSE 3 carisoprodol 350 mg tablet TAKE ONE TABLET BY MOUTH THREE TIMES A DAY NEEDED MAXIMUM DAILY DOSE 3 completed carisoprodol 350 MG Oral Tablet [place] ([facility]) gabapentin 800 mg tabs completed gabapentin 800 mg tabs [place] ([facility]) tramadol hcl 50 mg tabs completed tramadol hcl 50 mg tabs [place] ([facility]) methylprednisolone dose pack 4 mg tbpk completed methylprednisolone dose pack 4 mg tbpk [place] [facility]) ketotifen fumarate 0.025 % soln completed ketotifen fumarate 0.025 % soln [place] ([facility]) Amoxicillin 500 MG Oral Capsule amoxicillin 500 mg cap joe amoxicillin 500 mg capsule completed amoxicillin 50 0 MG Oral Capsule [facility] [place] [facility]) naproxen 500 mg tabs completed naproxen 500 mg tabs [facility] [place] [facility]) Lidocaine Hydrochloride 30 MG/ML Topical Cream lidocai ne HCl 3 % topical cream lidocaine HCl 3 % topical cream comple sonja lidocaine hydrochloride 30 MG/ML Topical Cream [place] [facility]) fluticasone propionate 50 mcg/act susp completed fluticasone propionate 50 mcg/act susp [facility] ([facility]) Brimonidine tartrate 2 MG/ML Ophthalmic Solution brimonidine 0.2 % eye drops INSTILL 1 DROP INTO BOTH EYES TWICE A DAY brimonidine 0.2 % eye drops INSTILL 1 DROP INTO BOTH EYES TWICE A DAY comple sonja brimonidine tartrate 2 MG/ML Ophthalmic Solution [facility] [place] ([facility]) brimonidine tartrate 0.2 % soln completed brimonidine tartrate 0.2 % soln [place] ([facility]) paroxetine hydrochloride 10 mg tabs completed paroxetine hydrochloride 10 mg tabs [place] ([facility]) albuterol sulfate hfa 108 mcg/act aers completed albuterol sulfate hfa 108 mcg/act aers [place] ([facility]) brimonidine tartrate 0.2 % soln completed brimonidine tartrate 0.2 % soln [place] ([facility]) amoxicillin 500 mg caps completed amoxicillin 500 mg caps [place] ([facility]) albuterol sulfate hfa 108 mcg/act aers completed albuterol sulfate hfa 108 mcg/act aers [place] ([facility]) albuterol sulfate hfa 108 mcg/act aers completed albuterol sulfate hfa 108 mcg/act aers [place] ([facility]) methocarbamol 750 mg tabs compl eted methocarbamol 750 mg tabs [place] ([facility]) ibuprofen 800 mg tabs completed ibuprofen 800 mg tabs [place] ([facility]) Amoxicillin 500 MG Oral Capsule amoxicillin 500 mg cap joe amoxicillin 500 mg capsule completed amoxicillin 50 0 MG Oral Capsule [place] ([facility]) paroxetine 10 mg tablet [id number] complet ed paroxetine hydrochloride 10 MG Oral Tablet [place] ([facility]) fluconazole 150 mg tabs completed fluconazole 150 mg tabs [place] ([facility]) Insurance Providers Payer name Policy type / Coverage type Policy ID Covered republican ID Covered republican's relationship to corrales Policy [place] Plan Information FORMERLY [facility] [id number] SP [id number] Medicaid P [id number] S [id number] MEDICAID [id number] SP [id number] [facility] [id number] SP [id number] [facility] Comm Plan Medicaid F [id number] SELF [id number] [facility] Comm Plan Medicaid F [id number] SELF [id number] [facility] [id number] Self [facility] COMMUNITY PLAN MCDO [id number] SP [id number] Medicaid [facility] Healthcare S D [id number] SELF [id number] [facility] MEDICAID [id number] [place] [id number] [facility]-Medicaid [id number] [facility]-Medicaid [id number] [facility] Community Plan Commercial [id number] Self [id number] [facility] Community Plan Commercial [id number] Self [id number] [facility] [id number] ANSI-Medicaid [id number] [facility] Community Plan Commercial [id number] Self [id number] [facility] Community Plan Commercial [id number] Self [id number] [facility] Community Plan Commercial [id number] Self [id number] [facility] Community Plan Commercial [id number] Self [id number] [facility] Community Plan Commercial [id number] Self [id number] [facility] Community Plan Commercial [id number] Self [id number] [facility] Health Maintenance Organization (HMO) [id number] Self [id number] [facility] Community Plan Commercial [id number] Self [id number] [facility] Community Plan Commercial [id number] Self [id number] [facility] Community Plan Commercial [id number] Self [id number] [facility] Community Plan Commercial [id number] Self [id number] [facility] Community Plan Commercial [id number] Self [id number] [facility] Comm Plan Medicaid F [id number] SELF [id number] [facility] Health Maintenance Organization (HMO) [id number] Self [id number] [facility] Health Maintenance Organization (O) [id number] Self [id number] MEDICAID M [id number] S [id number] [facility] Health Maintenance Organization (HMO) [id number] Self [id number] [facility] Health Maintenance Organization (HMO) [id number] Self [id number] [facility] Health Maintenance Organization (HMO) [id number] Self [id number] [facility] Health Maintenance Organization (HMO) [id number] Self [id number] [facility] Health Maintenance Organization (HMO) [id number] Self MEDICAID [id number] SP [id number] SELF PAY UNAVAILABLE SP UNAVAILA BLE ESURANCE [id number] SP [id number] ESURANCE [id number] SP [id number] [facility] [id number] [facility] [id number] [place] [id number] 2 [id number] [place] [facility] [place] [id number] SP [id number] [facility] [id number] SP [id number] [facility] 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 [facility] [id number] SP [id number] [facility] ADMINISTATORS [id number] [facility] PLAN [facility] [id number] SP [id number] [facility] PLAN [facility] [id number] SP [id number] ANSI-Medicaid [id number] ANSI-Medicaid [id number] [facility] Community Plan Commercial [id number] Self [id number] ANSI-Medicaid [id number] [facility] PLAN XIX [id number] ANSI-Medicaid [id number] ANSI-Medicaid [id number] [facility] Community Plan Commercial [id number] Self [id number] Problems, Conditions, and Diagnoses No Information Surgeries/Procedures Procedure Description Date Indications Data Source(s) Immunization: Flublok Quadrivalent (18 years & older) 0.5mL IM (Influenza) 10/23/2020 12:00:00 AM EST eCW1 ([facility]) MRI SPINAL CANAL LUMBAR W/O CONTRAST MATERIAL 08/01/20 12:00:00 AM EST MEDENT ([facility]) MRI SPINAL CANAL LUMBAR W/O CONTRAST MATERIAL 08/01/20 12:00:00 AM EST [facility] ([facility]) Results ID Date Data Source [id number] 05/11/2021 12:00:00 AM EDT [place] ([facility]) Name Value Range Interpretation Code Description Data Marie rce(s) Supporting Document(s) SARS-CoV-2 (COVID-19) RNA [Presence] in Respiratory specimen by MIRTHA with probe detection negative negative Sars-cov-2 [facility]) ID Date Data Source [id number] 05/11/2021 12:00:00 AM EDT [place] ([facility]) Name Value Range Interpretation Code Description Data Marie rce(s) Supporting Document(s) ID Date Data Source [id number] 05/11/2021 12:00:00 AM EDT [facility] Name Value Range Interpretation Code Description Data Marie rce(s) Supporting Document(s) SARS-CoV-2 NEGATIVE [facility] This lab was ordered by [facility]-COVID19 and reported by [facility]. ID Date Data Source [id number] 05/11/2021 12:00:00 AM EDT [place] ([facility]) Name Value Range Interpretation Code Description Data Marie rce(s) Supporting Document(s) SARS-CoV-2 (COVID-19) RNA [Presence] in Respiratory specimen by MIRTHA with probe detection negative negative Sars-cov-2 [facility]) ID Date Data Source [id number] 05/11/2021 12:00:00 AM EDT [place] ([facility]) Name Value Range Interpretation Code Description Data Marie rce(s) Supporting Document(s) ID Date Data Source [id number] 02/16/2021 12:00:00 AM EDT [place] ([facility]) Name Value Range Interpretation Code Description Data Marie rce(s) Supporting Document(s) ID Date Data Source [id number] 02/16/2021 12:00:00 AM EDT [place] ([facility]) Name Value Range Interpretation Code Description Data Marie rce(s) Supporting Document(s) SARS-CoV-2 (COVID-19) RNA [Presence] in Respiratory specimen by MIRTHA with probe detection negative negative Sars-cov-2 [place] ([facility]) ID Date Data Source [id number] 02/16/2021 12:00:00 AM EDT [place] ([facility]) Name Value Range Interpretation Code Description Data Marie rce(s) Supporting Document(s) ID Date Data Source [id number] 02/16/2021 12:00:00 AM EDT [place] ([facility]) Name Value Range Interpretation Code Description Data Marie rce(s) Supporting Document(s) ID Date Data Source [id number] 02/16/2021 12:00:00 AM EDT [place] ([facility]) Name Value Range Interpretation Code Description Data Marie rce(s) Supporting Document(s) SARS-CoV-2 (COVID-19) RNA [Presence] in Respiratory specimen by MIRTHA with probe detection negative negative Sars-cov-2 [place] ([facility]) ID Date Data Source [id number] 02/16/2021 12:00:00 AM EDT [place] ([facility]) Name Value Range Interpretation Code Description Data Marie rce(s) Supporting Document(s) ID Date Data Source [id number] 02/16/2021 12:00:00 AM EDT [place] ([facility]) Name Value Range Interpretation Code Description Data Marie rce(s) Supporting Document(s) ID Date Data Source [id number] 02/16/2021 12:00:00 AM EDT [place] ([facility]) Name Value Range Interpretation Code Description Data Marie rce(s) Supporting Document(s) SARS-CoV-2 (COVID-19) RNA [Presence] in Respiratory specimen by MIRTHA with probe detection negative negative Sars-cov-2 [place] ([facility]) ID Date Data Source [id number] 02/16/2021 12:00:00 AM EDT [facility] ([facility]) Name Value Range Interpretation Code Description Data Marie rce(s) Supporting Document(s) ID Date Data Source [id number] 02/16/2021 12:00:00 AM EDT [place] ([facility]) Name Value Range Interpretation Code Description Data Marie rce(s) Supporting Document(s) ID Date Data Source [id number] 02/16/2021 12:00:00 AM EDT [place] ([facility]) Name Value Range Interpretation Code Description Data Marie rce(s) Supporting Document(s) SARS-CoV-2 (COVID-19) RNA [Presence] in Respiratory specimen by MIRTHA with probe detection negative negative Sars-cov-2 [place] ([facility]) ID Date Data Source [id number] 02/16/2021 12:00:00 AM EDT [place] ([facility]) Name Value Range Interpretation Code Description Data Marie rce(s) Supporting Document(s) ID Date Data Source [id number] 02/16/2021 12:00:00 AM EDT [place] ([facility]) Name Value Range Interpretation Code Description Data Marie rce(s) Supporting Document(s) ID Date Data Source [id number] 02/16/2021 12:00:00 AM EDT [facility]) Name Value Range Interpretation Code Description Data Marie rce(s) Supporting Document(s) SARS-CoV-2 (COVID-19) RNA [Presence] in Respiratory specimen by MIRTHA with probe detection negative negative [facility] ID Date Data Source [id number] 02/16/2021 12:00:00 AM EDT [facility]) Name Value Range Interpretation Code Description Data Marie rce(s) Supporting Document(s) ID Date Data Source [id number] 02/16/2021 12:00:00 AM EDT [facility]) Name Value Range Interpretation Code Description Data Marie rce(s) Supporting Document(s) ID Date Data Source [id number] 02/16/2021 12:00:00 AM EDT [facility]) Name Value Range Interpretation Code Description Data Marie rce(s) Supporting Document(s) SARS-CoV-2 (COVID-19) RNA [Presence] in Respiratory specimen by MIRTHA with probe detection negative negative [facility] ID Date Data Source [id number] 02/16/2021 12:00:00 AM EDT [facility]) Name Value Range Interpretation Code Description Data Marie rce(s) Supporting Document(s) ID Date Data Source [id number] 02/16/2021 12:00:00 AM EDT [facility]) Name Value Range Interpretation Code Description Data Marie rce(s) Supporting Document(s) SARS-CoV-2 (COVID-19) RNA [Presence] in Respiratory specimen by MIRTHA with probe detection negative negative Sars-cov-2 [place] ([facility]) ID Date Data Source [id number] 02/16/2021 12:00:00 AM EDT [place] ([facility]) Name Value Range Interpretation Code Description Data Marie rce(s) Supporting Document(s) ID Date Data Source [id number] 02/16/2021 12:00:00 AM EDT [place] ([facility]) Name Value Range Interpretation Code Description Data Marie rce(s) Supporting Document(s) ID Date Data Source [id number] 02/16/2021 12:00:00 AM EDT [facility] Name Value Range Interpretation Code Description Data Marie rce(s) Supporting Document(s) SARS-CoV-2 NEGATIVE [facility] This lab was ordered by [facility] and reported by [facility]. ID Date Data Source [id number] 12/01/2020 12:00:00 AM EST [facility] [place] ([facility]) Name Value Range Interpretation Code Description Data Marie rce(s) Supporting Document(s) SARS-CoV-2 (COVID-19) RNA [Presence] in Respiratory specimen by MIRTHA with probe detection negative negative Sars-cov-2 [place] ([facility]) ID Date Data Source [id number] 12/01/2020 12:00:00 AM EST [place] ([facility] [place]) Name Value Range Interpretation Code Description Data Marie rce(s) Supporting Document(s) ID Date Data Source [id number] 12/01/2020 12:00:00 AM EST [place] ([facility] [place]) Name Value Range Interpretation Code Description Data Marie rce(s) Supporting Document(s) SARS-CoV-2 (COVID-19) RNA [Presence] in Respiratory specimen by MIRTHA with probe detection negative negative Sars-cov-2 [place] ([facility]) ID Date Data Source [id number] 12/01/2020 12:00:00 AM EST [place] ([facility]) Name Value Range Interpretation Code Description Data Marie rce(s) Supporting Document(s) ID Date Data Source [id number] 12/01/2020 12:00:00 AM EST [place] ([facility]) Name Value Range Interpretation Code Description Data Marie rce(s) Supporting Document(s) SARS-CoV-2 (COVID-19) RNA [Presence] in Respiratory specimen by MIRTHA with probe detection negative negative Sars-cov-2 [facility] [place] ([facility]) ID Date Data Source [id number] 12/01/2020 12:00:00 AM EST [place] ([facility]) Name Value Range Interpretation Code Description Data Marie rce(s) Supporting Document(s) ID Date Data Source [id number] 12/01/2020 12:00:00 AM EST [place] ([facility]) Name Value Range Interpretation Code Description Data Marie rce(s) Supporting Document(s) SARS-CoV-2 (COVID-19) RNA [Presence] in Respiratory specimen by MIRTHA with probe detection negative negative Sars-cov-2 [place] ([facility]) ID Date Data Source [id number] 12/01/2020 12:00:00 AM EST [place] ([facility]) Name Value Range Interpretation Code Description Data Marie rce(s) Supporting Document(s) ID Date Data Source [id number] 12/01/2020 12:00:00 AM EST [place] ([facility]) Name Value Range Interpretation Code Description Data Marie rce(s) Supporting Document(s) SARS-CoV-2 (COVID-19) RNA [Presence] in Respiratory specimen by MIRTHA with probe detection negative negative Sars-cov-2 [place] ([facility]) ID Date Data Source [id number] 12/01/2020 12:00:00 AM EST [place] ([facility]) Name Value Range Interpretation Code Description Data Marie rce(s) Supporting Document(s) ID Date Data Source [id number] 12/01/2020 12:00:00 AM EST [place] ([facility]) Name Value Range Interpretation Code Description Data Marie rce(s) Supporting Document(s) SARS-CoV-2 (COVID-19) RNA [Presence] in Respiratory specimen by MIRTHA with probe detection negative negative Sars-cov-2 [facility] [place] ([facility]) ID Date Data Source [id number] 12/01/2020 12:00:00 AM EST [facility] [place] ([facility]) Name Value Range Interpretation Code Description Data Marie rce(s) Supporting Document(s) ID Date Data Source [id number] 12/01/2020 12:00:00 AM EST [facility] [place] ([facility]) Name Value Range Interpretation Code Description Data Marie rce(s) Supporting Document(s) SARS-CoV-2 (COVID-19) RNA [Presence] in Respiratory specimen by MIRTHA with probe detection negative negative Sars-cov-2 [place] ([facility]) ID Date Data Source [id number] 12/01/2020 12:00:00 AM EST [place] ([facility]) Name Value Range Interpretation Code Description Data Marie rce(s) Supporting Document(s) ID Date Data Source [id number] 12/01/2020 12:00:00 AM EST [place] ([facility]) Name Value Range Interpretation Code Description Data Marie rce(s) Supporting Document(s) SARS-CoV-2 (COVID-19) RNA [Presence] in Respiratory specimen by MIRTHA with probe detection negative negative Sars-cov-2 [place] ([facility]) ID Date Data Source [id number] 12/01/2020 12:00:00 AM EST [place] ([facility]) Name Value Range Interpretation Code Description Data Marie rce(s) Supporting Document(s) ID Date Data Source [id number] 12/01/2020 12:00:00 AM EST [place] ([facility]) Name Value Range Interpretation Code Description Data Marie rce(s) Supporting Document(s) SARS-CoV-2 (COVID-19) RNA [Presence] in Respiratory specimen by MIRTHA with probe detection negative negative Sars-cov-2 [place] ([facility]) ID Date Data Source [id number] 12/01/2020 12:00:00 AM EST [place] ([facility]) Name Value Range Interpretation Code Description Data Marie rce(s) Supporting Document(s) ID Date Data Source [id number] 12/01/2020 12:00:00 AM EST [place] ([facility]) Name Value Range Interpretation Code Description Data Marie rce(s) Supporting Document(s) SARS-CoV-2 (COVID-19) RNA [Presence] in Respiratory specimen by MIRTHA with probe detection negative negative Sars-cov-2 [place] ([facility]) ID Date Data Source [id number] 12/01/2020 12:00:00 AM EST [place] ([facility]) Name Value Range Interpretation Code Description Data Marie rce(s) Supporting Document(s) ID Date Data Source [id number] 12/01/2020 12:00:00 AM EST [place] ([facility]) Name Value Range Interpretation Code Description Data Marie rce(s) Supporting Document(s) SARS-CoV-2 (COVID-19) RNA [Presence] in Respiratory specimen by MIRTHA with probe detection negative negative Sars-cov-2 [place] ([facility] [place]) ID Date Data Source [id number] 12/01/2020 12:00:00 AM EST [place] ([facility] [place]) Name Value Range Interpretation Code Description Data Marie rce(s) Supporting Document(s) ID Date Data Source [id number] 12/01/2020 12:00:00 AM EST [facility] Name Value Range Interpretation Code Description Data Marie rce(s) Supporting Document(s) SARS-CoV-2 NEGATIVE [facility] This lab was ordered by [facility]-C[facility] and reported by [facility]. ID Date Data Source [id number] 12/01/2020 12:00:00 AM EST [place] ([facility] [place]) Name Value Range Interpretation Code Description Data Marie rce(s) Supporting Document(s) SARS-CoV-2 (COVID-19) RNA [Presence] in Respiratory specimen by MIRTHA with probe detection negative negative Sars-cov-2 [place] ([facility] [place]) ID Date Data Source [id number] 12/01/2020 12:00:00 AM EST [place] ([facility] [place]) Name Value Range Interpretation Code Description Data Marie rce(s) Supporting Document(s) ID Date Data Source [id number] 12/01/2020 12:00:00 AM EST [place] ([facility] [place]) Name Value Range Interpretation Code Description Data Marie rce(s) Supporting Document(s) SARS-CoV-2 (COVID-19) RNA [Presence] in Respiratory specimen by MIRTHA with probe detection negative negative Sars-cov-2 [place] ([facility] [place]) ID Date Data Source [id number] 12/01/2020 12:00:00 AM EST [place] ([facility]) Name Value Range Interpretation Code Description Data Marie rce(s) Supporting Document(s) ID Date Data Source [id number] 11/21/2020 12:00:00 AM EST [place] ([facility]) Name Value Range Interpretation Code Description Data Marie rce(s) Supporting Document(s) SARS-CoV-2 (COVID-19) RNA [Presence] in Respiratory specimen by MIRTHA with probe detection negative negative Sars-cov-2 [place] ([facility]) ID Date Data Source [id number] 11/21/2020 12:00:00 AM EST [place] ([facility]) Name Value Range Interpretation Code Description Data Marie rce(s) Supporting Document(s) ID Date Data Source [id number] 11/21/2020 12:00:00 AM EST [place] ([facility]) Name Value Range Interpretation Code Description Data Marie rce(s) Supporting Document(s) SARS-CoV-2 (COVID-19) RNA [Presence] in Respiratory specimen by MIRTHA with probe detection negative negative Sars-cov-2 [place] ([facility]) ID Date Data Source [id number] 11/21/2020 12:00:00 AM EST [place] ([facility]) Name Value Range Interpretation Code Description Data Maire rce(s) Supporting Document(s) ID Date Data Source [id number] 11/21/2020 12:00:00 AM EST [place] ([facility]) Name Value Range Interpretation Code Description Data Marie rce(s) Supporting Document(s) SARS-CoV-2 (COVID-19) RNA [Presence] in Respiratory specimen by MIRTHA with probe detection negative negative Sars-cov-2 [place] ([facility]) ID Date Data Source [id number] 11/21/2020 12:00:00 AM EST [place] ([facility]) Name Value Range Interpretation Code Description Data Marie rce(s) Supporting Document(s) ID Date Data Source [id number] 11/21/2020 12:00:00 AM EST [place] ([facility]) Name Value Range Interpretation Code Description Data Marie rce(s) Supporting Document(s) SARS-CoV-2 (COVID-19) RNA [Presence] in Respiratory specimen by MIRTHA with probe detection negative negative Sars-cov-2 [place] ([facility]) ID Date Data Source [id number] 11/21/2020 12:00:00 AM EST [place] ([facility]) Name Value Range Interpretation Code Description Data Marie rce(s) Supporting Document(s) ID Date Data Source [id number] 11/21/2020 12:00:00 AM EST [place] ([facility]) Name Value Range Interpretation Code Description Data Marie rce(s) Supporting Document(s) SARS-CoV-2 (COVID-19) RNA [Presence] in Respiratory specimen by MIRTHA with probe detection negative negative Sars-cov-2 [place] ([facility]) ID Date Data Source [id number] 11/21/2020 12:00:00 AM EST [place] ([facility]) Name Value Range Interpretation Code Description Data Marie rce(s) Supporting Document(s) ID Date Data Source [id number] 11/21/2020 12:00:00 AM EST [place] ([facility]) Name Value Range Interpretation Code Description Data Marie rce(s) Supporting Document(s) SARS-CoV-2 (COVID-19) RNA [Presence] in Respiratory specimen by MIRTHA with probe detection negative negative Sars-cov-2 [place] ([facility]) ID Date Data Source [id number] 11/21/2020 12:00:00 AM EST [place] ([facility]) Name Value Range Interpretation Code Description Data Marie rce(s) Supporting Document(s) ID Date Data Source [id number] 11/21/2020 12:00:00 AM EST [place] ([facility]) Name Value Range Interpretation Code Description Data Marie rce(s) Supporting Document(s) SARS-CoV-2 (COVID-19) RNA [Presence] in Respiratory specimen by MIRTHA with probe detection negative negative Sars-cov-2 [place] ([facility]) ID Date Data Source [id number] 11/21/2020 12:00:00 AM EST [place] ([facility]) Name Value Range Interpretation Code Description Data Marie rce(s) Supporting Document(s) ID Date Data Source [id number] 11/21/2020 12:00:00 AM EST [place] ([facility]) Name Value Range Interpretation Code Description Data Marie rce(s) Supporting Document(s) SARS-CoV-2 (COVID-19) RNA [Presence] in Respiratory specimen by MIRTHA with probe detection negative negative Sars-cov-2 [place] ([facility]) ID Date Data Source [id number] 11/21/2020 12:00:00 AM EST [place] ([facility]) Name Value Range Interpretation Code Description Data Marie rce(s) Supporting Document(s) ID Date Data Source [id number] 11/21/2020 12:00:00 AM EST [place] ([facility]) Name Value Range Interpretation Code Description Data Marie rce(s) Supporting Document(s) SARS-CoV-2 (COVID-19) RNA [Presence] in Respiratory specimen by MIRTHA with probe detection negative negative Sars-cov-2 [place] ([facility]) ID Date Data Source [id number] 11/21/2020 12:00:00 AM EST [place] ([facility]) Name Value Range Interpretation Code Description Data Marie rce(s) Supporting Document(s) ID Date Data Source [id number] 11/21/2020 12:00:00 AM EST [place] ([facility]) Name Value Range Interpretation Code Description Data Marie rce(s) Supporting Document(s) SARS-CoV-2 (COVID-19) RNA [Presence] in Respiratory specimen by MIRTHA with probe detection negative negative Sars-cov-2 [place] ([facility]) ID Date Data Source [id number] 11/21/2020 12:00:00 AM EST [place] ([facility]) Name Value Range Interpretation Code Description Data Marie rce(s) Supporting Document(s) ID Date Data Source [id number] 11/21/2020 12:00:00 AM EST [place] ([facility]) Name Value Range Interpretation Code Description Data Marie rce(s) Supporting Document(s) SARS-CoV-2 (COVID-19) RNA [Presence] in Respiratory specimen by MIRTHA with probe detection negative negative Sars-cov-2 [place] ([facility]) ID Date Data Source [id number] 11/21/2020 12:00:00 AM EST [place] ([facility]) Name Value Range Interpretation Code Description Data Marie rce(s) Supporting Document(s) ID Date Data Source [id number] 11/21/2020 12:00:00 AM EST [place] ([facility]) Name Value Range Interpretation Code Description Data Marie rce(s) Supporting Document(s) SARS-CoV-2 (COVID-19) RNA [Presence] in Respiratory specimen by MIRTHA with probe detection negative negative Sars-cov-2 [place] ([facility]) ID Date Data Source [id number] 11/21/2020 12:00:00 AM EST [place] ([facility]) Name Value Range Interpretation Code Description Data Marie rce(s) Supporting Document(s) ID Date Data Source [id number] 11/21/2020 12:00:00 AM EST [place] ([facility]) Name Value Range Interpretation Code Description Data Marie rce(s) Supporting Document(s) SARS-CoV-2 (COVID-19) RNA [Presence] in Respiratory specimen by MIRTHA with probe detection negative negative Sars-cov-2 [place] ([facility]) ID Date Data Source [id number] 11/21/2020 12:00:00 AM EST [place] ([facility]) Name Value Range Interpretation Code Description Data Marie rce(s) Supporting Document(s) ID Date Data Source [id number] 11/21/2020 12:00:00 AM EST [place] ([facility]) Name Value Range Interpretation Code Description Data Marie rce(s) Supporting Document(s) SARS-CoV-2 (COVID-19) RNA [Presence] in Respiratory specimen by MIRTHA with probe detection negative negative Sars-cov-2 [place] ([facility]) ID Date Data Source [id number] 11/21/2020 12:00:00 AM EST [place] ([facility]) Name Value Range Interpretation Code Description Data Marie rce(s) Supporting Document(s) ID Date Data Source [id number] 11/21/2020 12:00:00 AM EST [place] ([facility]) Name Value Range Interpretation Code Description Data Marie rce(s) Supporting Document(s) SARS-CoV-2 (COVID-19) RNA [Presence] in Respiratory specimen by MIRTHA with probe detection negative negative Sars-cov-2 [place] ([facility]) ID Date Data Source [id number] 11/21/2020 12:00:00 AM EST [place] ([facility]) Name Value Range Interpretation Code Description Data Marie rce(s) Supporting Document(s) ID Date Data Source [id number] 11/21/2020 12:00:00 AM EST [facility] Name Value Range Interpretation Code Description Data Marie rce(s) Supporting Document(s) SARS-CoV-2 NEGATIVE [facility] This lab was ordered by [facility] and reported by [facility]. ID Date Data Source [id number] 11/10/2020 12:00:00 AM EST [place] ([facility]) Name Value Range Interpretation Code Description Data Marie rce(s) Supporting Document(s) ID Date Data Source [id number] 11/10/2020 12:00:00 AM EST [place] ([facility]) Name Value Range Interpretation Code Description Data Marie rce(s) Supporting Document(s) SARS-CoV-2 (COVID-19) RNA [Presence] in Respiratory specimen by MIRTHA with probe detection negative negative Sars-cov-2 [place] ([facility]) ID Date Data Source [id number] 11/10/2020 12:00:00 AM EST [place] ([facility]) Name Value Range Interpretation Code Description Data Marie rce(s) Supporting Document(s) ID Date Data Source [id number] 11/10/2020 12:00:00 AM EST [place] ([facility]) Name Value Range Interpretation Code Description Data Marie rce(s) Supporting Document(s) SARS-CoV-2 (COVID-19) RNA [Presence] in Respiratory specimen by MIRTHA with probe detection negative negative Sars-cov-2 [place] ([facility]) ID Date Data Source [id number] 11/10/2020 12:00:00 AM EST [place] ([facility]) Name Value Range Interpretation Code Description Data Marie rce(s) Supporting Document(s) ID Date Data Source [id number] 11/10/2020 12:00:00 AM EST [place] ([facility]) Name Value Range Interpretation Code Description Data Marie rce(s) Supporting Document(s) SARS-CoV-2 (COVID-19) RNA [Presence] in Respiratory specimen by MIRTHA with probe detection negative negative Sars-cov-2 [place] ([facility]) ID Date Data Source [id number] 11/10/2020 12:00:00 AM EST [place] ([facility]) Name Value Range Interpretation Code Description Data Marie rce(s) Supporting Document(s) ID Date Data Source [id number] 11/10/2020 12:00:00 AM EST [place] ([facility]) Name Value Range Interpretation Code Description Data Marie rce(s) Supporting Document(s) SARS-CoV-2 (COVID-19) RNA [Presence] in Respiratory specimen by MIRTHA with probe detection negative negative Sars-cov-2 [place] ([facility]) ID Date Data Source [id number] 11/10/2020 12:00:00 AM EST [place] ([facility]) Name Value Range Interpretation Code Description Data Marie rce(s) Supporting Document(s) ID Date Data Source [id number] 11/10/2020 12:00:00 AM EST [place] ([facility]) Name Value Range Interpretation Code Description Data Marie rce(s) Supporting Document(s) SARS-CoV-2 (COVID-19) RNA [Presence] in Respiratory specimen by MIRTHA with probe detection negative negative Sars-cov-2 [place] ([facility]) ID Date Data Source [id number] 11/10/2020 12:00:00 AM EST [place] ([facility]) Name Value Range Interpretation Code Description Data Marie rce(s) Supporting Document(s) ID Date Data Source [id number] 11/10/2020 12:00:00 AM EST [place] ([facility]) Name Value Range Interpretation Code Description Data Marie rce(s) Supporting Document(s) SARS-CoV-2 (COVID-19) RNA [Presence] in Respiratory specimen by MIRTHA with probe detection negative negative Sars-cov-2 [place] ([facility]) ID Date Data Source [id number] 11/10/2020 12:00:00 AM EST [facility] ([facility]) Name Value Range Interpretation Code Description Data Marie rce(s) Supporting Document(s) ID Date Data Source [id number] 11/10/2020 12:00:00 AM EST [facility] [place] ([facility]) Name Value Range Interpretation Code Description Data Marie rce(s) Supporting Document(s) SARS-CoV-2 (COVID-19) RNA [Presence] in Respiratory specimen by MIRTHA with probe detection negative negative Sars-cov-2 [place] ([facility]) ID Date Data Source [id number] 11/10/2020 12:00:00 AM EST [facility] [place] ([facility]) Name Value Range Interpretation Code Description Data Marie rce(s) Supporting Document(s) ID Date Data Source [id number] 11/10/2020 12:00:00 AM EST [place] ([facility]) Name Value Range Interpretation Code Description Data Marie rce(s) Supporting Document(s) SARS-CoV-2 (COVID-19) RNA [Presence] in Respiratory specimen by MIRTHA with probe detection negative negative Sars-cov-2 [place] ([facility]) ID Date Data Source [id number] 11/10/2020 12:00:00 AM EST [facility] [place] ([facility]) Name Value Range Interpretation Code Description Data Marie rce(s) Supporting Document(s) ID Date Data Source [id number] 11/10/2020 12:00:00 AM EST [place] ([facility]) Name Value Range Interpretation Code Description Data Marie rce(s) Supporting Document(s) SARS-CoV-2 (COVID-19) RNA [Presence] in Respiratory specimen by MIRTHA with probe detection negative negative Sars-cov-2 [facility] ([facility]) ID Date Data Source [id number] 11/10/2020 12:00:00 AM EST [facility] ([facility]) Name Value Range Interpretation Code Description Data Marie rce(s) Supporting Document(s) ID Date Data Source [id number] 11/10/2020 12:00:00 AM EST [place] ([facility]) Name Value Range Interpretation Code Description Data Marie rce(s) Supporting Document(s) SARS-CoV-2 (COVID-19) RNA [Presence] in Respiratory specimen by MIRTHA with probe detection negative negative Sars-cov-2 [place] ([facility]) ID Date Data Source [id number] 11/10/2020 12:00:00 AM EST [facility] ([facility]) Name Value Range Interpretation Code Description Data Marie rce(s) Supporting Document(s) ID Date Data Source [id number] 11/10/2020 12:00:00 AM EST [facility] ([facility]) Name Value Range Interpretation Code Description Data Marie rce(s) Supporting Document(s) SARS-CoV-2 (COVID-19) RNA [Presence] in Respiratory specimen by MIRTHA with probe detection negative negative Sars-cov-2 [place] ([facility]) ID Date Data Source [id number] 11/10/2020 12:00:00 AM EST [place] ([facility]) Name Value Range Interpretation Code Description Data Marie rce(s) Supporting Document(s) ID Date Data Source [id number] 11/10/2020 12:00:00 AM EST [place] ([facility]) Name Value Range Interpretation Code Description Data Marie rce(s) Supporting Document(s) SARS-CoV-2 (COVID-19) RNA [Presence] in Respiratory specimen by MIRTHA with probe detection negative negative Sars-cov-2 [place] ([facility]) ID Date Data Source [id number] 11/10/2020 12:00:00 AM EST [place] ([facility]) Name Value Range Interpretation Code Description Data Marie rce(s) Supporting Document(s) SARS-CoV-2 (COVID-19) RNA [Presence] in Respiratory specimen by MIRTHA with probe detection negative negative Sars-cov-2 [place] ([facility]) ID Date Data Source [id number] 11/10/2020 12:00:00 AM EST [place] ([facility]) Name Value Range Interpretation Code Description Data Marie rce(s) Supporting Document(s) ID Date Data Source [id number] 11/10/2020 12:00:00 AM EST [place] ([facility]) Name Value Range Interpretation Code Description Data Marie rce(s) Supporting Document(s) SARS-CoV-2 (COVID-19) RNA [Presence] in Respiratory specimen by MIRTHA with probe detection negative negative Sars-cov-2 [place] ([facility]) ID Date Data Source [id number] 11/10/2020 12:00:00 AM EST [place] ([facility]) Name Value Range Interpretation Code Description Data Marie rce(s) Supporting Document(s) ID Date Data Source [id number] 11/10/2020 12:00:00 AM EST [place] ([facility]) Name Value Range Interpretation Code Description Data Marie rce(s) Supporting Document(s) SARS-CoV-2 (COVID-19) RNA [Presence] in Respiratory specimen by MIRTHA with probe detection negative negative Sars-cov-2 [place] ([facility]) ID Date Data Source [id number] 11/10/2020 12:00:00 AM EST [place] ([facility]) Name Value Range Interpretation Code Description Data Marie rce(s) Supporting Document(s) ID Date Data Source [id number] 11/10/2020 12:00:00 AM EST [place] ([facility]) Name Value Range Interpretation Code Description Data Marie rce(s) Supporting Document(s) SARS-CoV-2 (COVID-19) RNA [Presence] in Respiratory specimen by MIRTHA with probe detection negative negative Sars-cov-2 [place] ([facility]) ID Date Data Source [id number] 11/10/2020 12:00:00 AM EST [place] ([facility]) Name Value Range Interpretation Code Description Data Marie rce(s) Supporting Document(s) ID Date Data Source [id number] 11/10/2020 12:00:00 AM EST [facility] Name Value Range Interpretation Code Description Data Marie rce(s) Supporting Document(s) SARS-CoV-2 NEGATIVE [facility] This lab was ordered by [facility]-COVID19 and reported by [facility]. ID Date Data Source [id number] 10/15/2020 12:00:00 AM EST [place] ([facility]) Name Value Range Interpretation Code Description Data Marie rce(s) Supporting Document(s) SARS-CoV-2 (COVID-19) RNA [Presence] in Respiratory specimen by MIRTHA with probe detection negative negative Sars-cov-2 [place] ([facility]) ID Date Data Source [id number] 10/15/2020 12:00:00 AM EST [place] ([facility]) Name Value Range Interpretation Code Description Data Marie rce(s) Supporting Document(s) ID Date Data Source [id number] 10/15/2020 12:00:00 AM EST [place] ([facility]) Name Value Range Interpretation Code Description Data Marie rce(s) Supporting Document(s) SARS-CoV-2 (COVID-19) RNA [Presence] in Respiratory specimen by MIRTHA with probe detection negative negative Sars-cov-2 [place] ([facility]) ID Date Data Source [id number] 10/15/2020 12:00:00 AM EST [place] ([facility]) Name Value Range Interpretation Code Description Data Marie rce(s) Supporting Document(s) ID Date Data Source [id number] 10/15/2020 12:00:00 AM EST [place] ([facility]) Name Value Range Interpretation Code Description Data Marie rce(s) Supporting Document(s) SARS-CoV-2 (COVID-19) RNA [Presence] in Respiratory specimen by MIRTHA with probe detection negative negative Sars-cov-2 [place] ([facility]) ID Date Data Source [id number] 10/15/2020 12:00:00 AM EST [place] ([facility]) Name Value Range Interpretation Code Description Data Marie rce(s) Supporting Document(s) ID Date Data Source [id number] 10/15/2020 12:00:00 AM EST [place] ([facility]) Name Value Range Interpretation Code Description Data Marie rce(s) Supporting Document(s) SARS-CoV-2 (COVID-19) RNA [Presence] in Respiratory specimen by MIRTHA with probe detection negative negative Sars-cov-2 [place] ([facility]) ID Date Data Source [id number] 10/15/2020 12:00:00 AM EST [place] ([facility]) Name Value Range Interpretation Code Description Data Marie rce(s) Supporting Document(s) ID Date Data Source [id number] 10/15/2020 12:00:00 AM EST [place] ([facility]) Name Value Range Interpretation Code Description Data Marie rce(s) Supporting Document(s) SARS-CoV-2 (COVID-19) RNA [Presence] in Respiratory specimen by MIRTHA with probe detection negative negative Sars-cov-2 [place] ([facility]) ID Date Data Source [id number] 10/15/2020 12:00:00 AM EST [place] ([facility]) Name Value Range Interpretation Code Description Data Marie rce(s) Supporting Document(s) ID Date Data Source [id number] 10/15/2020 12:00:00 AM EST [place] ([facility]) Name Value Range Interpretation Code Description Data Marie rce(s) Supporting Document(s) SARS-CoV-2 (COVID-19) RNA [Presence] in Respiratory specimen by MIRTHA with probe detection negative negative Sars-cov-2 [place] ([facility]) ID Date Data Source [id number] 10/15/2020 12:00:00 AM EST [place] ([facility]) Name Value Range Interpretation Code Description Data Marie rce(s) Supporting Document(s) ID Date Data Source [id number] 10/15/2020 12:00:00 AM EST [place] ([facility]) Name Value Range Interpretation Code Description Data Marie rce(s) Supporting Document(s) SARS-CoV-2 (COVID-19) RNA [Presence] in Respiratory specimen by MIRTHA with probe detection negative negative Sars-cov-2 [place] ([facility]) ID Date Data Source [id number] 10/15/2020 12:00:00 AM EST [place] ([facility]) Name Value Range Interpretation Code Description Data Marie rce(s) Supporting Document(s) ID Date Data Source [id number] 10/15/2020 12:00:00 AM EST [place] ([facility]) Name Value Range Interpretation Code Description Data Marie rce(s) Supporting Document(s) SARS-CoV-2 (COVID-19) RNA [Presence] in Respiratory specimen by MIRTHA with probe detection negative negative Sars-cov-2 [place] ([facility]) ID Date Data Source [id number] 10/15/2020 12:00:00 AM EST [place] ([facility]) Name Value Range Interpretation Code Description Data Marie rce(s) Supporting Document(s) ID Date Data Source [id number] 10/15/2020 12:00:00 AM EST [place] ([facility]) Name Value Range Interpretation Code Description Data Marie rce(s) Supporting Document(s) SARS-CoV-2 (COVID-19) RNA [Presence] in Respiratory specimen by MIRTHA with probe detection negative negative Sars-cov-2 [place] ([facility]) ID Date Data Source [id number] 10/15/2020 12:00:00 AM EST [place] ([facility]) Name Value Range Interpretation Code Description Data Marie rce(s) Supporting Document(s) ID Date Data Source [id number] 10/15/2020 12:00:00 AM EST [place] ([facility]) Name Value Range Interpretation Code Description Data Marie rce(s) Supporting Document(s) SARS-CoV-2 (COVID-19) RNA [Presence] in Respiratory specimen by MIRTHA with probe detection negative negative Sars-cov-2 [place] ([facility]) ID Date Data Source [id number] 10/15/2020 12:00:00 AM EST [place] ([facility]) Name Value Range Interpretation Code Description Data Marie rce(s) Supporting Document(s) ID Date Data Source [id number] 10/15/2020 12:00:00 AM EST [place] ([facility]) Name Value Range Interpretation Code Description Data Marie rce(s) Supporting Document(s) SARS-CoV-2 (COVID-19) RNA [Presence] in Respiratory specimen by MIRTHA with probe detection negative negative Sars-cov-2 [place] ([facility]) ID Date Data Source [id number] 10/15/2020 12:00:00 AM EST [place] ([facility]) Name Value Range Interpretation Code Description Data Marie rce(s) Supporting Document(s) ID Date Data Source [id number] 10/15/2020 12:00:00 AM EST [place] ([facility]) Name Value Range Interpretation Code Description Data Marie rce(s) Supporting Document(s) SARS-CoV-2 (COVID-19) RNA [Presence] in Respiratory specimen by MIRTHA with probe detection negative negative Sars-cov-2 [place] ([facility]) ID Date Data Source [id number] 10/15/2020 12:00:00 AM EST [place] ([facility]) Name Value Range Interpretation Code Description Data Marie rce(s) Supporting Document(s) ID Date Data Source [id number] 10/15/2020 12:00:00 AM EST [place] ([facility]) Name Value Range Interpretation Code Description Data Marie rce(s) Supporting Document(s) SARS-CoV-2 (COVID-19) RNA [Presence] in Respiratory specimen by MIRTHA with probe detection negative negative Sars-cov-2 [place] ([facility]) ID Date Data Source [id number] 10/15/2020 12:00:00 AM EST [place] ([facility]) Name Value Range Interpretation Code Description Data Marie rce(s) Supporting Document(s) ID Date Data Source [id number] 10/15/2020 12:00:00 AM EST [place] ([facility]) Name Value Range Interpretation Code Description Data Marie rce(s) Supporting Document(s) SARS-CoV-2 (COVID-19) RNA [Presence] in Respiratory specimen by MIRTHA with probe detection negative negative Sars-cov-2 [place] ([facility]) ID Date Data Source [id number] 10/15/2020 12:00:00 AM EST [place] ([facility]) Name Value Range Interpretation Code Description Data Marie rce(s) Supporting Document(s) ID Date Data Source [id number] 10/15/2020 12:00:00 AM EST [place] ([facility]) Name Value Range Interpretation Code Description Data Marie rce(s) Supporting Document(s) SARS-CoV-2 (COVID-19) RNA [Presence] in Respiratory specimen by MIRTHA with probe detection negative negative Sars-cov-2 [place] ([facility]) ID Date Data Source [id number] 10/15/2020 12:00:00 AM EST [place] ([facility]) Name Value Range Interpretation Code Description Data Marie rce(s) Supporting Document(s) ID Date Data Source [id number] 10/15/2020 12:00:00 AM EST [place] ([facility]) Name Value Range Interpretation Code Description Data Marie rce(s) Supporting Document(s) SARS-CoV-2 (COVID-19) RNA [Presence] in Respiratory specimen by MIRTHA with probe detection negative negative Sars-cov-2 [place] ([facility]) ID Date Data Source [id number] 10/15/2020 12:00:00 AM EST [place] ([facility]) Name Value Range Interpretation Code Description Data Marie rce(s) Supporting Document(s) ID Date Data Source [id number] 10/15/2020 12:00:00 AM EST [place] ([facility]) Name Value Range Interpretation Code Description Data Marie rce(s) Supporting Document(s) SARS-CoV-2 (COVID-19) RNA [Presence] in Respiratory specimen by MIRTHA with probe detection negative negative Sars-cov-2 [place] ([facility]) ID Date Data Source [id number] 10/15/2020 12:00:00 AM EST [place] ([facility]) Name Value Range Interpretation Code Description Data Marie rce(s) Supporting Document(s) ID Date Data Source [id number] 10/15/2020 12:00:00 AM EST [place] ([facility]) Name Value Range Interpretation Code Description Data Marie rce(s) Supporting Document(s) SARS-CoV-2 (COVID-19) RNA [Presence] in Respiratory specimen by MIRTHA with probe detection negative negative Sars-cov-2 [place] ([facility]) ID Date Data Source [id number] 10/15/2020 12:00:00 AM EST [place] ([facility]) Name Value Range Interpretation Code Description Data Marie rce(s) Supporting Document(s) ID Date Data Source [id number] 10/15/2020 12:00:00 AM EST [facility] Name Value Range Interpretation Code Description Data Marie rce(s) Supporting Document(s) [facility] This lab was ordered by [facility]-COVID19 and reported by [facility]. ID Date Data Source [id number] 08/15/2020 12:00:00 AM EST [place] ([facility]) Name Value Range Interpretation Code Description Data Marie rce(s) Supporting Document(s) SARS-CoV-2 (COVID-19) RNA [Presence] in Respiratory specimen by MIRTHA with probe detection negative negative Sars-cov-2 [place] ([facility]) ID Date Data Source [id number] 08/15/2020 12:00:00 AM EST [place] ([facility]) Name Value Range Interpretation Code Description Data Mraie rce(s) Supporting Document(s) ID Date Data Source [id number] 08/15/2020 12:00:00 AM EST [place] ([facility]) Name Value Range Interpretation Code Description Data Marie rce(s) Supporting Document(s) SARS-CoV-2 (COVID-19) RNA [Presence] in Respiratory specimen by MIRTHA with probe detection negative negative Sars-cov-2 [place] ([facility]) ID Date Data Source [id number] 08/15/2020 12:00:00 AM EST [place] ([facility]) Name Value Range Interpretation Code Description Data Marie rce(s) Supporting Document(s) ID Date Data Source [id number] 08/15/2020 12:00:00 AM EST [place] ([facility]) Name Value Range Interpretation Code Description Data Marie rce(s) Supporting Document(s) SARS-CoV-2 (COVID-19) RNA [Presence] in Respiratory specimen by MIRTHA with probe detection negative negative Sars-cov-2 [place] ([facility]) ID Date Data Source [id number] 08/15/2020 12:00:00 AM EST [place] ([facility]) Name Value Range Interpretation Code Description Data Marie rce(s) Supporting Document(s) ID Date Data Source [id number] 08/15/2020 12:00:00 AM EST [place] ([facility]) Name Value Range Interpretation Code Description Data Marie rce(s) Supporting Document(s) SARS-CoV-2 (COVID-19) RNA [Presence] in Respiratory specimen by MIRTHA with probe detection negative negative Sars-cov-2 [place] ([facility]) ID Date Data Source [id number] 08/15/2020 12:00:00 AM EST [place] ([facility]) Name Value Range Interpretation Code Description Data Marie rce(s) Supporting Document(s) ID Date Data Source [id number] 08/15/2020 12:00:00 AM EST [place] ([facility]) Name Value Range Interpretation Code Description Data Marie rce(s) Supporting Document(s) SARS-CoV-2 (COVID-19) RNA [Presence] in Respiratory specimen by MIRTHA with probe detection negative negative Sars-cov-2 [place] ([facility]) ID Date Data Source [id number] 08/15/2020 12:00:00 AM EST [place] ([facility]) Name Value Range Interpretation Code Description Data Marie rce(s) Supporting Document(s) ID Date Data Source [id number] 08/15/2020 12:00:00 AM EST [place] ([facility]) Name Value Range Interpretation Code Description Data Marie rce(s) Supporting Document(s) SARS-CoV-2 (COVID-19) RNA [Presence] in Respiratory specimen by MIRTHA with probe detection negative negative Sars-cov-2 [place] ([facility]) ID Date Data Source [id number] 08/15/2020 12:00:00 AM EST [place] ([facility]) Name Value Range Interpretation Code Description Data Marie rce(s) Supporting Document(s) ID Date Data Source [id number] 08/15/2020 12:00:00 AM EST [place] ([facility]) Name Value Range Interpretation Code Description Data Marie rce(s) Supporting Document(s) SARS-CoV-2 (COVID-19) RNA [Presence] in Respiratory specimen by MIRTHA with probe detection negative negative Sars-cov-2 [place] ([facility]) ID Date Data Source [id number] 08/15/2020 12:00:00 AM EST [place] ([facility]) Name Value Range Interpretation Code Description Data Marie rce(s) Supporting Document(s) ID Date Data Source [id number] 08/15/2020 12:00:00 AM EST [place] ([facility]) Name Value Range Interpretation Code Description Data Marie rce(s) Supporting Document(s) SARS-CoV-2 (COVID-19) RNA [Presence] in Respiratory specimen by MIRTHA with probe detection negative negative Sars-cov-2 [place] ([facility]) ID Date Data Source [id number] 08/15/2020 12:00:00 AM EST [place] ([facility]) Name Value Range Interpretation Code Description Data Marie rce(s) Supporting Document(s) ID Date Data Source [id number] 08/15/2020 12:00:00 AM EST [place] ([facility]) Name Value Range Interpretation Code Description Data Marie rce(s) Supporting Document(s) SARS-CoV-2 (COVID-19) RNA [Presence] in Respiratory specimen by MIRTHA with probe detection negative negative Sars-cov-2 [place] ([facility]) ID Date Data Source [id number] 08/15/2020 12:00:00 AM EST [place] ([facility]) Name Value Range Interpretation Code Description Data Marie rce(s) Supporting Document(s) ID Date Data Source [id number] 08/15/2020 12:00:00 AM EST [place] ([facility]) Name Value Range Interpretation Code Description Data Marie rce(s) Supporting Document(s) SARS-CoV-2 (COVID-19) RNA [Presence] in Respiratory specimen by MIRTHA with probe detection negative negative Sars-cov-2 [place] ([facility]) ID Date Data Source [id number] 08/15/2020 12:00:00 AM EST [place] ([facility]) Name Value Range Interpretation Code Description Data Marie rce(s) Supporting Document(s) ID Date Data Source [id number] 08/15/2020 12:00:00 AM EST [place] ([facility]) Name Value Range Interpretation Code Description Data Marie rce(s) Supporting Document(s) SARS-CoV-2 (COVID-19) RNA [Presence] in Respiratory specimen by MIRTHA with probe detection negative negative Sars-cov-2 [place] ([facility]) ID Date Data Source [id number] 08/15/2020 12:00:00 AM EST [place] ([facility]) Name Value Range Interpretation Code Description Data Marie rce(s) Supporting Document(s) ID Date Data Source [id number] 08/15/2020 12:00:00 AM EST [place] ([facility]) Name Value Range Interpretation Code Description Data Marie rce(s) Supporting Document(s) SARS-CoV-2 (COVID-19) RNA [Presence] in Respiratory specimen by MIRTHA with probe detection negative negative Sars-cov-2 [place] ([facility]) ID Date Data Source [id number] 08/15/2020 12:00:00 AM EST [place] ([facility]) Name Value Range Interpretation Code Description Data Marie rce(s) Supporting Document(s) ID Date Data Source [id number] 08/15/2020 12:00:00 AM EST [place] ([facility]) Name Value Range Interpretation Code Description Data Marie rce(s) Supporting Document(s) SARS-CoV-2 (COVID-19) RNA [Presence] in Respiratory specimen by MIRTHA with probe detection negative negative Sars-cov-2 [place] ([facility]) ID Date Data Source [id number] 08/15/2020 12:00:00 AM EST [place] ([facility]) Name Value Range Interpretation Code Description Data Marie rce(s) Supporting Document(s) ID Date Data Source [id number] 08/15/2020 12:00:00 AM EST [place] ([facility]) Name Value Range Interpretation Code Description Data Marie rce(s) Supporting Document(s) SARS-CoV-2 (COVID-19) RNA [Presence] in Respiratory specimen by MIRTHA with probe detection negative negative Sars-cov-2 [place] ([facility]) ID Date Data Source [id number] 08/15/2020 12:00:00 AM EST [place] ([facility]) Name Value Range Interpretation Code Description Data Marie rce(s) Supporting Document(s) ID Date Data Source [id number] 08/15/2020 12:00:00 AM EST [place] ([facility]) Name Value Range Interpretation Code Description Data Marie rce(s) Supporting Document(s) SARS-CoV-2 (COVID-19) RNA [Presence] in Respiratory specimen by MIRTHA with probe detection negative negative Sars-cov-2 [place] [facility] [facility]) ID Date Data Source [id number] 08/15/2020 12:00:00 AM EST [place] ([facility]) Name Value Range Interpretation Code Description Data Marie rce(s) Supporting Document(s) ID Date Data Source [id number] 08/15/2020 12:00:00 AM EST [place] ([facility]) Name Value Range Interpretation Code Description Data Marie rce(s) Supporting Document(s) SARS-CoV-2 (COVID-19) RNA [Presence] in Respiratory specimen by MIRTHA with probe detection negative negative Sars-cov-2 [place] ([facility]) ID Date Data Source [id number] 08/15/2020 12:00:00 AM EST [place] ([facility]) Name Value Range Interpretation Code Description Data Marie rce(s) Supporting Document(s) ID Date Data Source [id number] 08/15/2020 12:00:00 AM EST [place] ([facility]) Name Value Range Interpretation Code Description Data Marie rce(s) Supporting Document(s) SARS-CoV-2 (COVID-19) RNA [Presence] in Respiratory specimen by MIRTHA with probe detection negative negative Sars-cov-2 [place] ([facility]) ID Date Data Source [id number] 08/15/2020 12:00:00 AM EST [place] ([facility]) Name Value Range Interpretation Code Description Data Marie rce(s) Supporting Document(s) ID Date Data Source [id number] 08/15/2020 12:00:00 AM EST [place] ([facility]) Name Value Range Interpretation Code Description Data Marie rce(s) Supporting Document(s) SARS-CoV-2 (COVID-19) RNA [Presence] in Respiratory specimen by MIRTHA with probe detection negative negative Sars-cov-2 [place] ([facility]) ID Date Data Source [id number] 08/15/2020 12:00:00 AM EST [place] ([facility]) Name Value Range Interpretation Code Description Data Marie rce(s) Supporting Document(s) ID Date Data Source [id number] 08/15/2020 12:00:00 AM EST [place] ([facility]) Name Value Range Interpretation Code Description Data Marie rce(s) Supporting Document(s) SARS-CoV-2 (COVID-19) RNA [Presence] in Respiratory specimen by MIRTHA with probe detection negative negative Sars-cov-2 [place] ([facility]) ID Date Data Source [id number] 08/15/2020 12:00:00 AM EST [place] ([facility]) Name Value Range Interpretation Code Description Data Marie rce(s) Supporting Document(s) ID Date Data Source [id number] 08/15/2020 12:00:00 AM EST [place] ([facility]) Name Value Range Interpretation Code Description Data Marie rce(s) Supporting Document(s) SARS-CoV-2 (COVID-19) RNA [Presence] in Respiratory specimen by MIRTHA with probe detection negative negative Sars-cov-2 [place] ([facility]) ID Date Data Source [id number] 08/15/2020 12:00:00 AM EST [place] ([facility]) Name Value Range Interpretation Code Description Data Marie rce(s) Supporting Document(s) ID Date Data Source [id number] 08/15/2020 12:00:00 AM EST [place] ([facility]) Name Value Range Interpretation Code Description Data Marie rce(s) Supporting Document(s) SARS-CoV-2 (COVID-19) RNA [Presence] in Respiratory specimen by MIRTHA with probe detection negative negative Sars-cov-2 [place] ([facility]) ID Date Data Source [id number] 08/15/2020 12:00:00 AM EST [place] ([facility]) Name Value Range Interpretation Code Description Data Marie rce(s) Supporting Document(s) ID Date Data Source [id number] 08/15/2020 12:00:00 AM EST [place] ([facility]) Name Value Range Interpretation Code Description Data Marie rce(s) Supporting Document(s) SARS coronavirus 2 RNA [Presence] in Res piratory specimen by MIRTHA with probe detection negative negative Sars-cov-2 [place] ([facility]) ID Date Data Source [id number] 08/15/2020 12:00:00 AM EST [place] ([facility]) Name Value Range Interpretation Code Description Data Marie rce(s) Supporting Document(s) ID Date Data Source [id number] 08/15/2020 12:00:00 AM EST [facility] Name Value Range Interpretation Code Description Data Marie rce(s) Supporting Document(s) SARS-CoV-2 [facility] This lab was ordered by [facility]-COVID19 and reported by [facility]. ID Date Data Source [id number] 07/11/2020 12:00:00 AM EDT [place] ([facility]) Name Value Range Interpretation Code Description Data Marie rce(s) Supporting Document(s) SARS-CoV-2 (COVID-19) RNA [Presence] in Respiratory specimen by MIRTHA with probe detection negative negative Sars-cov-2 [place] ([facility]) ID Date Data Source [id number] 07/11/2020 12:00:00 AM EDT [place] ([facility]) Name Value Range Interpretation Code Description Data Marie rce(s) Supporting Document(s) ID Date Data Source [id number] 07/11/2020 12:00:00 AM EDT [place] ([facility]) Name Value Range Interpretation Code Description Data Marie rce(s) Supporting Document(s) ID Date Data Source [id number] 07/11/2020 12:00:00 AM EDT [place] ([facility]) Name Value Range Interpretation Code Description Data Marie rce(s) Supporting Document(s) SARS-CoV-2 (COVID-19) RNA [Presence] in Respiratory specimen by MIRTHA with probe detection negative negative Sars-cov-2 [place] ([facility]) ID Date Data Source [id number] 07/11/2020 12:00:00 AM EDT [place] ([facility]) Name Value Range Interpretation Code Description Data Marie rce(s) Supporting Document(s) SARS-CoV-2 (COVID-19) RNA [Presence] in Respiratory specimen by MIRTHA with probe detection negative negative Sars-cov-2 [place] ([facility]) ID Date Data Source [id number] 07/11/2020 12:00:00 AM EDT [place] ([facility]) Name Value Range Interpretation Code Description Data Marie rce(s) Supporting Document(s) ID Date Data Source [id number] 07/11/2020 12:00:00 AM EDT [place] ([facility]) Name Value Range Interpretation Code Description Data Marie rce(s) Supporting Document(s) ID Date Data Source [id number] 07/11/2020 12:00:00 AM EDT [place] ([facility]) Name Value Range Interpretation Code Description Data Marie rce(s) Supporting Document(s) ID Date Data Source [id number] 07/11/2020 12:00:00 AM EDT [place] ([facility]) Name Value Range Interpretation Code Description Data Marie rce(s) Supporting Document(s) ID Date Data Source [id number] 07/11/2020 12:00:00 AM EDT [place] ([facility]) Name Value Range Interpretation Code Description Data Marie rce(s) Supporting Document(s) SARS-CoV-2 (COVID-19) RNA [Presence] in Respiratory specimen by MIRTHA with probe detection negative negative Sars-cov-2 [facility]) ID Date Data Source [id number] 07/11/2020 12:00:00 AM EDT [place] ([facility]) Name Value Range Interpretation Code Description Data Marie rce(s) Supporting Document(s) SARS-CoV-2 (COVID-19) RNA [Presence] in Respiratory specimen by MIRTHA with probe detection negative negative Sars-cov-2 [place] ([facility]) ID Date Data Source [id number] 07/11/2020 12:00:00 AM EDT [facility] [place] ([facility]) Name Value Range Interpretation Code Description Data Marie rce(s) Supporting Document(s) ID Date Data Source [id number] 07/11/2020 12:00:00 AM EDT [place] ([facility]) Name Value Range Interpretation Code Description Data Marie rce(s) Supporting Document(s) ID Date Data Source [id number] 07/11/2020 12:00:00 AM EDT [place] ([facility]) Name Value Range Interpretation Code Description Data Marie rce(s) Supporting Document(s) ID Date Data Source [id number] 07/11/2020 12:00:00 AM EDT [place] ([facility]) Name Value Range Interpretation Code Description Data Marie rce(s) Supporting Document(s) ID Date Data Source [id number] 07/11/2020 12:00:00 AM EDT [place] ([facility]) Name Value Range Interpretation Code Description Data Marie rce(s) Supporting Document(s) SARS-CoV-2 (COVID-19) RNA [Presence] in Respiratory specimen by MIRTHA with probe detection negative negative Sars-cov-2 [place] ([facility]) ID Date Data Source [id number] 07/11/2020 12:00:00 AM EDT [place] ([facility]) Name Value Range Interpretation Code Description Data Marie rce(s) Supporting Document(s) ID Date Data Source [id number] 07/11/2020 12:00:00 AM EDT [place] ([facility]) Name Value Range Interpretation Code Description Data Marie rce(s) Supporting Document(s) ID Date Data Source [id number] 07/11/2020 12:00:00 AM EDT [place] ([facility]) Name Value Range Interpretation Code Description Data Marie rce(s) Supporting Document(s) SARS-CoV-2 (COVID-19) RNA [Presence] in Respiratory specimen by MIRTHA with probe detection negative negative Sars-cov-2 [place] ([facility]) ID Date Data Source [id number] 07/11/2020 12:00:00 AM EDT [place] ([facility]) Name Value Range Interpretation Code Description Data Marie rce(s) Supporting Document(s) ID Date Data Source [id number] 07/11/2020 12:00:00 AM EDT [place] ([facility]) Name Value Range Interpretation Code Description Data Marie rce(s) Supporting Document(s) ID Date Data Source [id number] 07/11/2020 12:00:00 AM EDT [place] ([facility]) Name Value Range Interpretation Code Description Data Marie rce(s) Supporting Document(s) SARS-CoV-2 (COVID-19) RNA [Presence] in Respiratory specimen by MIRTHA with probe detection negative negative Sars-cov-2 [place] ([facility]) ID Date Data Source [id number] 07/11/2020 12:00:00 AM EDT [place] ([facility]) Name Value Range Interpretation Code Description Data Marie rce(s) Supporting Document(s) ID Date Data Source [id number] 07/11/2020 12:00:00 AM EDT [place] ([facility]) Name Value Range Interpretation Code Description Data Marie rce(s) Supporting Document(s) ID Date Data Source [id number] 07/11/2020 12:00:00 AM EDT [place] ([facility]) Name Value Range Interpretation Code Description Data Marie rce(s) Supporting Document(s) SARS-CoV-2 (COVID-19) RNA [Presence] in Respiratory specimen by MIRTHA with probe detection negative negative Sars-cov-2 [place] ([facility]) ID Date Data Source [id number] 07/11/2020 12:00:00 AM EDT [place] ([facility]) Name Value Range Interpretation Code Description Data Marie rce(s) Supporting Document(s) SARS-CoV-2 (COVID-19) RNA [Presence] in Respiratory specimen by MIRTHA with probe detection negative negative Sars-cov-2 [place] ([facility]) ID Date Data Source [id number] 07/11/2020 12:00:00 AM EDT [place] ([facility]) Name Value Range Interpretation Code Description Data Marie rce(s) Supporting Document(s) ID Date Data Source [id number] 07/11/2020 12:00:00 AM EDT [place] ([facility]) Name Value Range Interpretation Code Description Data Marie rce(s) Supporting Document(s) ID Date Data Source [id number] 07/11/2020 12:00:00 AM EDT [place] ([facility]) Name Value Range Interpretation Code Description Data Marie rce(s) Supporting Document(s) ID Date Data Source [id number] 07/11/2020 12:00:00 AM EDT [place] ([facility]) Name Value Range Interpretation Code Description Data Marie rce(s) Supporting Document(s) ID Date Data Source [id number] 07/11/2020 12:00:00 AM EDT [place] ([facility]) Name Value Range Interpretation Code Description Data Marie rce(s) Supporting Document(s) SARS-CoV-2 (COVID-19) RNA [Presence] in Respiratory specimen by MIRTHA with probe detection negative negative Sars-cov-2 [place] ([facility]) ID Date Data Source [id number] 07/11/2020 12:00:00 AM EDT [place] ([facility]) Name Value Range Interpretation Code Description Data Marie rce(s) Supporting Document(s) ID Date Data Source [id number] 07/11/2020 12:00:00 AM EDT [place] ([facility]) Name Value Range Interpretation Code Description Data Marie rce(s) Supporting Document(s) ID Date Data Source [id number] 07/11/2020 12:00:00 AM EDT [place] ([facility]) Name Value Range Interpretation Code Description Data Marie rce(s) Supporting Document(s) SARS-CoV-2 (COVID-19) RNA [Presence] in Respiratory specimen by MIRTHA with probe detection negative negative Sars-cov-2 [place] ([facility]) ID Date Data Source [id number] 07/11/2020 12:00:00 AM EDT [place] ([facility]) Name Value Range Interpretation Code Description Data Marie rce(s) Supporting Document(s) SARS-CoV-2 (COVID-19) RNA [Presence] in Respiratory specimen by MIRTHA with probe detection negative negative Sars-cov-2 [place] ([facility]) ID Date Data Source [id number] 07/11/2020 12:00:00 AM EDT [place] ([facility]) Name Value Range Interpretation Code Description Data Marie rce(s) Supporting Document(s) ID Date Data Source [id number] 07/11/2020 12:00:00 AM EDT [place] ([facility]) Name Value Range Interpretation Code Description Data Marie rce(s) Supporting Document(s) ID Date Data Source [id number] 07/11/2020 12:00:00 AM EDT [place] ([facility]) Name Value Range Interpretation Code Description Data Marie rce(s) Supporting Document(s) ID Date Data Source [id number] 07/11/2020 12:00:00 AM EDT [place] ([facility]) Name Value Range Interpretation Code Description Data Marie rce(s) Supporting Document(s) ID Date Data Source [id number] 07/11/2020 12:00:00 AM EDT [place] ([facility]) Name Value Range Interpretation Code Description Data Marie rce(s) Supporting Document(s) SARS-CoV-2 (COVID-19) RNA [Presence] in Respiratory specimen by MIRTHA with probe detection negative negative Sars-cov-2 [place] ([facility]) ID Date Data Source [id number] 07/11/2020 12:00:00 AM EDT [place] ([facility]) Name Value Range Interpretation Code Description Data Marie rce(s) Supporting Document(s) ID Date Data Source [id number] 07/11/2020 12:00:00 AM EDT [place] ([facility]) Name Value Range Interpretation Code Description Data Marie rce(s) Supporting Document(s) ID Date Data Source [id number] 07/11/2020 12:00:00 AM EDT [place] ([facility]) Name Value Range Interpretation Code Description Data Marie rce(s) Supporting Document(s) SARS-CoV-2 (COVID-19) RNA [Presence] in Respiratory specimen by MIRTHA with probe detection negative negative Sars-cov-2 [place] ([facility]) ID Date Data Source [id number] 07/11/2020 12:00:00 AM EDT [place] ([facility]) Name Value Range Interpretation Code Description Data Marie rce(s) Supporting Document(s) ID Date Data Source [id number] 07/11/2020 12:00:00 AM EDT [place] ([facility]) Name Value Range Interpretation Code Description Data Marie rce(s) Supporting Document(s) ID Date Data Source [id number] 07/11/2020 12:00:00 AM EDT [place] ([facility]) Name Value Range Interpretation Code Description Data Marie rce(s) Supporting Document(s) SARS-CoV-2 (COVID-19) RNA [Presence] in Respiratory specimen by MIRTHA with probe detection negative negative Sars-cov-2 [place] ([facility]) ID Date Data Source [id number] 07/11/2020 12:00:00 AM EDT [facility] [place] ([facility]) Name Value Range Interpretation Code Description Data Marie rce(s) Supporting Document(s) ID Date Data Source [id number] 07/11/2020 12:00:00 AM EDT [facility] [place] ([facility]) Name Value Range Interpretation Code Description Data Marie rce(s) Supporting Document(s) ID Date Data Source [id number] 07/11/2020 12:00:00 AM EDT [facility] [place] ([facility]) Name Value Range Interpretation Code Description Data Marie rce(s) Supporting Document(s) SARS-CoV-2 (COVID-19) RNA [Presence] in Respiratory specimen by MIRTHA with probe detection negative negative Sars-cov-2 [facility] [place] ([facility]) ID Date Data Source [id number] 07/11/2020 12:00:00 AM EDT [facility] [place] ([facility]) Name Value Range Interpretation Code Description Data Marie rce(s) Supporting Document(s) ID Date Data Source [id number] 07/11/2020 12:00:00 AM EDT [facility] [place] ([facility]) Name Value Range Interpretation Code Description Data Marie rce(s) Supporting Document(s) ID Date Data Source [id number] 07/11/2020 12:00:00 AM EDT [facility] [place] ([facility]) Name Value Range Interpretation Code Description Data Marie rce(s) Supporting Document(s) SARS-CoV-2 (COVID-19) RNA [Presence] in Respiratory specimen by MIRTHA with probe detection negative negative Sars-cov-2 [place] ([facility]) ID Date Data Source [id number] 07/11/2020 12:00:00 AM EDT [place] ([facility]) Name Value Range Interpretation Code Description Data Marie rce(s) Supporting Document(s) ID Date Data Source [id number] 07/11/2020 12:00:00 AM EDT [place] ([facility]) Name Value Range Interpretation Code Description Data Marie rce(s) Supporting Document(s) ID Date Data Source [id number] 07/11/2020 12:00:00 AM EDT [place] ([facility]) Name Value Range Interpretation Code Description Data Marie rce(s) Supporting Document(s) SARS-CoV-2 (COVID-19) RNA [Presence] in Respiratory specimen by MIRTHA with probe detection negative negative Sars-cov-2 [place] ([facility]) ID Date Data Source [id number] 07/11/2020 12:00:00 AM EDT [place] ([facility]) Name Value Range Interpretation Code Description Data Marie rce(s) Supporting Document(s) ID Date Data Source [id number] 07/11/2020 12:00:00 AM EDT [place] ([facility]) Name Value Range Interpretation Code Description Data Marie rce(s) Supporting Document(s) ID Date Data Source [id number] 07/11/2020 12:00:00 AM EDT [place] ([facility]) Name Value Range Interpretation Code Description Data Marie rce(s) Supporting Document(s) SARS-CoV-2 (COVID-19) RNA [Presence] in Respiratory specimen by MIRTHA with probe detection negative negative Sars-cov-2 [place] ([facility]) ID Date Data Source [id number] 07/11/2020 12:00:00 AM EDT [place] ([facility]) Name Value Range Interpretation Code Description Data Marie rce(s) Supporting Document(s) ID Date Data Source [id number] 07/11/2020 12:00:00 AM EDT [place] ([facility]) Name Value Range Interpretation Code Description Data Marie rce(s) Supporting Document(s) ID Date Data Source [id number] 07/11/2020 12:00:00 AM EDT [place] ([facility]) Name Value Range Interpretation Code Description Data Marie rce(s) Supporting Document(s) SARS-CoV-2 (COVID-19) RNA [Presence] in Respiratory specimen by MIRTHA with probe detection negative negative Sars-cov-2 [place] ([facility]) ID Date Data Source [id number] 07/11/2020 12:00:00 AM EDT [place] ([facility]) Name Value Range Interpretation Code Description Data Marie rce(s) Supporting Document(s) ID Date Data Source [id number] 07/11/2020 12:00:00 AM EDT [place] ([facility]) Name Value Range Interpretation Code Description Data Marie rce(s) Supporting Document(s) ID Date Data Source [id number] 07/11/2020 12:00:00 AM EDT [place] ([facility]) Name Value Range Interpretation Code Description Data Marie rce(s) Supporting Document(s) SARS coronavirus 2 RNA [Presence] in Res piratory specimen by MIRTHA with probe detection negative negative Sars-cov-2 [place] ([facility]) ID Date Data Source [id number] 07/11/2020 12:00:00 AM EDT [place] ([facility]) Name Value Range Interpretation Code Description Data Marie rce(s) Supporting Document(s) ID Date Data Source [id number] 07/11/2020 12:00:00 AM EDT [place] ([facility]) Name Value Range Interpretation Code Description Data Marie rce(s) Supporting Document(s) ID Date Data Source [id number] 07/11/2020 12:00:00 AM EDT [place] ([facility]) Name Value Range Interpretation Code Description Data Marie rce(s) Supporting Document(s) SARS coronavirus 2 RNA [Presence] in Res piratory specimen by MIRTHA with probe detection negative negative Sars-cov-2 [place] ([facility]) ID Date Data Source [id number] 07/11/2020 12:00:00 AM EDT [place] ([facility]) Name Value Range Interpretation Code Description Data Marie rce(s) Supporting Document(s) ID Date Data Source [id number] 07/11/2020 12:00:00 AM EDT [place] ([facility]) Name Value Range Interpretation Code Description Data Marie rce(s) Supporting Document(s) ID Date Data Source [id number] 07/11/2020 12:00:00 AM EDT [place] ([facility]) Name Value Range Interpretation Code Description Data Marie rce(s) Supporting Document(s) SARS coronavirus 2 RNA [Presence] in Res piratory specimen by MIRTHA with probe detection negative negative Sars-cov-2 [place] ([facility]) ID Date Data Source [id number] 07/11/2020 12:00:00 AM EDT [place] ([facility]) Name Value Range Interpretation Code Description Data Marie rce(s) Supporting Document(s) ID Date Data Source [id number] 07/11/2020 12:00:00 AM EDT [place] ([facility]) Name Value Range Interpretation Code Description Data Marie rce(s) Supporting Document(s) ID Date Data Source [id number] 07/11/2020 12:00:00 AM EDT [place] ([facility]) Name Value Range Interpretation Code Description Data Marie rce(s) Supporting Document(s) SARS coronavirus 2 RNA [Presence] in Res piratory specimen by MIRTHA with probe detection negative negative Sars-cov-2 [facility] [place] ([facility]) ID Date Data Source [id number] 07/11/2020 12:00:00 AM EDT [place] ([facility]) Name Value Range Interpretation Code Description Data Marie rce(s) Supporting Document(s) ID Date Data Source [id number] 07/11/2020 12:00:00 AM EDT [place] ([facility]) Name Value Range Interpretation Code Description Data Marie rce(s) Supporting Document(s) ID Date Data Source [id number] 07/11/2020 12:00:00 AM EDT [facility] Name Value Range Interpretation Code Description Data Marie rce(s) Supporting Document(s) SARS-CoV-2 [facility] This lab was ordered by [facility] [email or web address] and reported by [facility]. ID Date Data Source [id number] 05/16/2020 12:00:00 AM EDT [facility] Name Value Range Interpretation Code Description Data Marie rce(s) Supporting Document(s) SARS-CoV-2 [facility] This lab was ordered by [email or web address] and reported by [facility]. Procedure Social History Code Duration Value Status Description Data Source(s ) Smoking 04/20/2021 12:00:00 AM EDT Current Smoker completed Curre nt Smoker eCW1 ([facility]) Smoking 10/23/2020 12:00:00 AM EST Current Smoker completed Curre nt Smoker eCW1 ([facility]) Smoking 10/23/2020 12:00:00 AM EST Current Smoker completed Curre nt Smoker eCW1 ([facility]) Smoking 10/23/2020 12:00:00 AM EST Current Smoker completed Curre nt Smoker eCW1 ([facility]) Smoking 10/23/2020 12:00:00 AM EST Current Smoker completed Curre nt Smoker eCW1 ([facility]) Smoking 07/04/2020 12:00:00 AM EDT Current Smoker completed Curre nt Smoker eCW1 ([facility]) Smoking 07/04/2020 12:00:00 AM EDT Current Smoker completed Curre nt Smoker eCW1 ([facility]) Vital Signs ID Date Data Source [id number] Name Value Range Interpretation Code Description Data Source(s) Systolic blood pressure 150 mm[Hg] 150 mm[Hg] A THENA ([facility]) Body height 63 [in_i] 63 [in_i] [place] ([facility]) Diastolic blood pressure 94 mm[Hg] 94 mm[Hg] [place] ([facility]) Body height 63 [in_i] 63 [in_i] [place] ([facility]) Diastolic blood pressure 94 mm[Hg] 94 mm[Hg] [place] ([facility]) Systolic blood pressure 136 mm[Hg] 136 mm[Hg] A THE[place] ([facility]) Systolic blood pressure 136 mm[Hg] 136 mm[Hg] A THENA ([facility]) Body height 63 [in_i] 63 [in_i] [place] ([facility]) Diastolic blood pressure 94 mm[Hg] 94 mm[Hg] [place] ([facility]) Systolic blood pressure 136 mm[Hg] 136 mm[Hg] A THE[place] ([facility]) Body height 63 [in_i] 63 [in_i] [place] ([facility]) Diastolic blood pressure 94 mm[Hg] 94 mm[Hg] [place] ([facility]) Systolic blood pressure 136 mm[Hg] 136 mm[Hg] A THE[place] ([facility]) Body height 63 [in_i] 63 [in_i] [place] ([facility]) Diastolic blood pressure 94 mm[Hg] 94 mm[Hg] [place] ([facility]) Diastolic blood pressure 78 mm[Hg] 78 mm[Hg] eCW1 ([facility]) Systolic blood pressure 142 mm[Hg] 142 mm[Hg] e CW1 ([facility]) Body temperature 97.2 [degF] 97.2 [degF] eCW1 ( [facility]) Respiratory rate 18 /min 18 /min eCW1 ([facility]) Heart rate 78 /min 78 /min eCW1 ([facility]) Body mass index (BMI) [Ratio] 41.73 kg/m2 41.73 kg/m2 eCW1 ([facility]) Body height [in_i] eCW1 ([facility]) Body weight 235.6 [lb_av] 235.6 [lb_av] eCW1 ([facility]) Systolic blood pressure 146 mm[Hg] 146 mm[Hg] A THENA ([facility]) Body height 63 [in_i] 63 [in_i] [place] ([facility]) Diastolic blood pressure 79 mm[Hg] 79 mm[Hg] [place] ([facility]) Systolic blood pressure 146 mm[Hg] 146 mm[Hg] A THENA ([facility]) Body height 63 [in_i] 63 [in_i] [place] ([facility]) Diastolic blood pressure 79 mm[Hg] 79 mm[Hg] [place] ([facility]) Systolic blood pressure 146 mm[Hg] 146 mm[Hg] A THENA ([facility]) Body height 63 [in_i] 63 [in_i] [place] ([facility]) Diastolic blood pressure 79 mm[Hg] 79 mm[Hg] [place] ([facility]) Diastolic blood pressure 79 mm[Hg] 79 mm[Hg] [place] ([facility]) Systolic blood pressure 146 mm[Hg] 146 mm[Hg] A THE[place] ([facility]) Body height 63 [in_i] 63 [in_i] [place] ([facility]) Diastolic blood pressure 79 mm[Hg] 79 mm[Hg] [place] ([facility]) Systolic blood pressure 146 mm[Hg] 146 mm[Hg] A [facility] ([facility]) Body height 63 [in_i] 63 [in_i] [place] ([facility]) Systolic blood pressure 146 mm[Hg] 146 mm[Hg] A THENA ([facility]) Body height 63 [in_i] 63 [in_i] [place] ([facility]) Diastolic blood pressure 79 mm[Hg] 79 mm[Hg] [place] ([facility]) Systolic blood pressure 146 mm[Hg] 146 mm[Hg] A THENA ([facility]) Body height 63 [in_i] 63 [in_i] [place] ([facility]) Diastolic blood pressure 79 mm[Hg] 79 mm[Hg] [place] ([facility]) Systolic blood pressure 146 mm[Hg] 146 mm[Hg] A THENA ([facility]) Body height 63 [in_i] 63 [in_i] [place] ([facility]) Diastolic blood pressure 79 mm[Hg] 79 mm[Hg] [place] ([facility]) Systolic blood pressure 146 mm[Hg] 146 mm[Hg] A THENA ([facility]) Body height 63 [in_i] 63 [in_i] [place] ([facility]) Diastolic blood pressure 79 mm[Hg] 79 mm[Hg] [place] ([facility]) Systolic blood pressure 150 mm[Hg] 150 mm[Hg] A THENA ([facility]) Diastolic blood pressure 80 mm[Hg] 80 mm[Hg] [place] ([facility]) Systolic blood pressure 150 mm[Hg] 150 mm[Hg] A THE[place] ([facility]) Diastolic blood pressure 80 mm[Hg] 80 mm[Hg] [place] ([facility]) Systolic blood pressure 150 mm[Hg] 150 mm[Hg] A THENA ([facility]) Diastolic blood pressure 80 mm[Hg] 80 mm[Hg] [place] ([facility]) Systolic blood pressure 150 mm[Hg] 150 mm[Hg] A THENA ([facility]) Diastolic blood pressure 80 mm[Hg] 80 mm[Hg] [place] ([facility]) Systolic blood pressure 150 mm[Hg] 150 mm[Hg] A THENA ([facility]) Diastolic blood pressure 80 mm[Hg] 80 mm[Hg] [place] ([facility]) Systolic blood pressure 150 mm[Hg] 150 mm[Hg] A THENA ([facility]) Diastolic blood pressure 80 mm[Hg] 80 mm[Hg] [place] ([facility]) Systolic blood pressure 150 mm[Hg] 150 mm[Hg] A THENA ([facility]) Diastolic blood pressure 80 mm[Hg] 80 mm[Hg] [place] ([facility]) Systolic blood pressure 150 mm[Hg] 150 mm[Hg] A THENA ([facility]) Diastolic blood pressure 80 mm[Hg] 80 mm[Hg] [place] ([facility]) Systolic blood pressure 150 mm[Hg] 150 mm[Hg] A THENA ([facility]) Diastolic blood pressure 80 mm[Hg] 80 mm[Hg] [place] ([facility]) Systolic blood pressure 150 mm[Hg] 150 mm[Hg] A THENA ([facility]) Diastolic blood pressure 80 mm[Hg] 80 mm[Hg] [place] ([facility]) Systolic blood pressure 150 mm[Hg] 150 mm[Hg] A THENA ([facility]) Diastolic blood pressure 80 mm[Hg] 80 mm[Hg] [place] ([facility]) Systolic blood pressure 150 mm[Hg] 150 mm[Hg] A THENA ([facility]) Diastolic blood pressure 80 mm[Hg] 80 mm[Hg] [place] ([facility]) Body weight 229 [lb_av] 229 [lb_av] eCW1 ([facility]) Diastolic blood pressure 84 mm[Hg] 84 mm[Hg] eCW1 ([facility]) Systolic blood pressure 140 mm[Hg] 140 mm[Hg] e CW1 ([facility]) Body temperature 97.8 [degF] 97.8 [degF] eCW1 ( [facility]) Respiratory rate 18 /min 18 /min eCW1 ([facility]) Heart rate 80 /min 80 /min eCW1 ([facility]) Body mass index (BMI) [Ratio] 40.56 kg/m2 40.56 kg/m2 eCW1 ([facility]) Body height [in_i] eCW1 ([facility]) Body height 63 [in_i] 63 [in_i] [place] ([facility]) Body height 63 [in_i] 63 [in_i] [place] ([facility]) Body height 63 [in_i] 63 [in_i] [place] ([facility]) Body height 63 [in_i] 63 [in_i] [place] ([facility]) Body height 63 [in_i] 63 [in_i] [place] ([facility]) Body height 63 [in_i] 63 [in_i] [place] ([facility]) Body height 63 [in_i] 63 [in_i] [place] ([facility]) Body height 63 [in_i] 63 [in_i] [place] ([facility]) Body height 63 [in_i] 63 [in_i] [place] ([facility]) Body height 63 [in_i] 63 [in_i] [place] ([facility]) Body height 63 [in_i] 63 [in_i] [place] ([facility]) Body height 63 [in_i] 63 [in_i] [place] ([facility]) Body height 63 [in_i] 63 [in_i] [place] ([facility]) Body height 63 [in_i] 63 [in_i] [place] ([facility]) Body height 63 [in_i] 63 [in_i] [place] ([facility]) Body height 63 [in_i] 63 [in_i] [place] ([facility]) Body height 63 [in_i] 63 [in_i] [place] ([facility]) Body height 63 [in_i] 63 [in_i] [place] ([facility]) Body height 63 [in_i] 63 [in_i] [place] ([facility]) Body height 63 [in_i] 63 [in_i] [place] ([facility]) Body height 63 [in_i] 63 [in_i] [place] ([facility]) Body height 63 [in_i] 63 [in_i] [place] ([facility]) Body height 63 [in_i] 63 [in_i] [place] ([facility]) Body height 63 [in_i] 63 [in_i] [place] ([facility]) Body height 63 [in_i] 63 [in_i] [place] ([facility]) Body height 63 [in_i] 63 [in_i] [place] ([facility]) Body height 63 [in_i] 63 [in_i] [place] ([facility]) Body height 63 [in_i] 63 [in_i] [place] ([facility]) Body height 63 [in_i] 63 [in_i] [place] ([facility]) Body height 63 [in_i] 63 [in_i] [place] ([facility]) Body height 63 [in_i] 63 [in_i] [place] ([facility]) Body height 63 [in_i] 63 [in_i] [place] ([facility]) Body height 63 [in_i] 63 [in_i] [place] ([facility]) Body height 63 [in_i] 63 [in_i] [place] ([facility]) Body height 63 [in_i] 63 [in_i] [place] ([facility]) Body height 63 [in_i] 63 [in_i] [place] ([facility]) Body height 63 [in_i] 63 [in_i] [place] ([facility]) Body height 63 [in_i] 63 [in_i] [place] ([facility]) Systolic blood pressure 157 mm[Hg] 157 mm[Hg] A THENA ([facility]) Body height 63 [in_i] 63 [in_i] [place] ([facility]) Diastolic blood pressure 84 mm[Hg] 84 mm[Hg] [place]IN ([facility]) Systolic blood pressure 157 mm[Hg] 157 mm[Hg] A THENA ([facility]) Body height 63 [in_i] 63 [in_i] [place] ([facility]) Diastolic blood pressure 84 mm[Hg] 84 mm[Hg] [place]IN ([facility]) Systolic blood pressure 157 mm[Hg] 157 mm[Hg] A THENA ([facility]) Body height 63 [in_i] 63 [in_i] [place] ([facility]) Diastolic blood pressure 84 mm[Hg] 84 mm[Hg] [place] ([facility]) Systolic blood pressure 157 mm[Hg] 157 mm[Hg] A THENA ([facility]) Body height 63 [in_i] 63 [in_i] [facility] ([facility]) Diastolic blood pressure 84 mm[Hg] 84 mm[Hg] [facility] ([facility]) Systolic blood pressure 157 mm[Hg] 157 mm[Hg] A THENA ([facility]) Body height 63 [in_i] 63 [in_i] [facility] ([facility]) Diastolic blood pressure 84 mm[Hg] 84 mm[Hg] [facility] ([facility]) Systolic blood pressure 157 mm[Hg] 157 mm[Hg] A THENA ([facility]) Body height 63 [in_i] 63 [in_i] [facility] ([facility]) Diastolic blood pressure 84 mm[Hg] 84 mm[Hg] [facility] ([facility]) Systolic blood pressure 157 mm[Hg] 157 mm[Hg] A THENA ([facility]) Body height 63 [in_i] 63 [in_i] [facility] ([facility]) Diastolic blood pressure 84 mm[Hg] 84 mm[Hg] [facility] ([facility]) Systolic blood pressure 157 mm[Hg] 157 mm[Hg] A THENA ([facility]) Body height 63 [in_i] 63 [in_i] [facility] ([facility]) Diastolic blood pressure 84 mm[Hg] 84 mm[Hg] [facility]IN ([facility]) Systolic blood pressure 157 mm[Hg] 157 mm[Hg] A THENA ([facility]) Body height 63 [in_i] 63 [in_i] [facility]IN ([facility]) Diastolic blood pressure 84 mm[Hg] 84 mm[Hg] [facility]IN ([facility]) Systolic blood pressure 157 mm[Hg] 157 mm[Hg] A THENA ([facility]) Body height 63 [in_i] 63 [in_i] [facility] ([facility]) Diastolic blood pressure 84 mm[Hg] 84 mm[Hg] [facility] ([facility]) Systolic blood pressure 157 mm[Hg] 157 mm[Hg] A THENA ([facility]) Body height 63 [in_i] 63 [in_i] [place] ([facility]) Diastolic blood pressure 84 mm[Hg] 84 mm[Hg] [facility]IN ([facility]) Systolic blood pressure 157 mm[Hg] 157 mm[Hg] A THENA ([facility]) Body height 63 [in_i] 63 [in_i] [facility] ([facility]) Diastolic blood pressure 84 mm[Hg] 84 mm[Hg] [facility] ([facility]) Systolic blood pressure 157 mm[Hg] 157 mm[Hg] A THENA ([facility]) Body height 63 [in_i] 63 [in_i] [place] ([facility]) Diastolic blood pressure 84 mm[Hg] 84 mm[Hg] [facility]IN ([facility]) Systolic blood pressure 157 mm[Hg] 157 mm[Hg] A THENA ([facility]) Body height 63 [in_i] 63 [in_i] [facility] ([facility]) Diastolic blood pressure 84 mm[Hg] 84 mm[Hg] [facility] ([facility]) Systolic blood pressure 157 mm[Hg] 157 mm[Hg] A THENA ([facility]) Body height 63 [in_i] 63 [in_i] [facility] ([facility]) Diastolic blood pressure 84 mm[Hg] 84 mm[Hg] [facility] ([facility]) Systolic blood pressure 157 mm[Hg] 157 mm[Hg] A THENA ([facility]) Body height 63 [in_i] 63 [in_i] [place] ([facility]) Diastolic blood pressure 84 mm[Hg] 84 mm[Hg] [facility] ([facility]) Systolic blood pressure 157 mm[Hg] 157 mm[Hg] A THENA ([facility]) Body height 63 [in_i] 63 [in_i] [facility]IN ([facility]) Diastolic blood pressure 84 mm[Hg] 84 mm[Hg] [facility]IN ([facility]) Systolic blood pressure 157 mm[Hg] 157 mm[Hg] A THENA ([facility]) Body height 63 [in_i] 63 [in_i] [facility]IN ([facility]) Diastolic blood pressure 84 mm[Hg] 84 mm[Hg] [facility]IN ([facility]) Systolic blood pressure 157 mm[Hg] 157 mm[Hg] A THENA ([facility]) Body height 63 [in_i] 63 [in_i] [facility]IN ([facility]) Diastolic blood pressure 84 mm[Hg] 84 mm[Hg] [facility] ([facility]) Systolic blood pressure 157 mm[Hg] 157 mm[Hg] A THENA ([facility]) Body height 63 [in_i] 63 [in_i] [facility]IN ([facility]) Diastolic blood pressure 84 mm[Hg] 84 mm[Hg] [facility]IN ([facility]) Systolic blood pressure 157 mm[Hg] 157 mm[Hg] A THENA ([facility]) Body height 63 [in_i] 63 [in_i] [facility]IN ([facility]) Diastolic blood pressure 84 mm[Hg] 84 mm[Hg] [facility]IN ([facility]) Systolic blood pressure 157 mm[Hg] 157 mm[Hg] A THENA ([facility]) Body height 63 [in_i] 63 [in_i] [facility]UG[place]IN ([facility]) Diastolic blood pressure 84 mm[Hg] 84 mm[Hg] [facility]IN ([facility]) Systolic blood pressure 157 mm[Hg] 157 mm[Hg] A THENA ([facility]) Body height 63 [in_i] 63 [in_i] [facility] ([facility]) Diastolic blood pressure 84 mm[Hg] 84 mm[Hg] [facility]IN ([facility]) Systolic blood pressure 157 mm[Hg] 157 mm[Hg] A THENA ([facility]) Body height 63 [in_i] 63 [in_i] [facility]UG[facility]IN ([facility]) Diastolic blood pressure 84 mm[Hg] 84 mm[Hg] [facility]IN ([facility]) Systolic blood pressure 158 mm[Hg] 158 mm[Hg] A THENA ([facility]) Body height 63 [in_i] 63 [in_i] [facility] ([facility]) Diastolic blood pressure 104 mm[Hg] 104 mm[Hg] [facility] ([facility]) Systolic blood pressure 158 mm[Hg] 158 mm[Hg] A THENA ([facility]) Body height 63 [in_i] 63 [in_i] [facility]IN ([facility]) Diastolic blood pressure 104 mm[Hg] 104 mm[Hg] [facility] ([facility]) Systolic blood pressure 158 mm[Hg] 158 mm[Hg] A THENA ([facility]) Body height 63 [in_i] 63 [in_i] [facility] ([facility]) Diastolic blood pressure 104 mm[Hg] 104 mm[Hg] [facility]IN ([facility]) Systolic blood pressure 158 mm[Hg] 158 mm[Hg] A THENA ([facility]) Body height 63 [in_i] 63 [in_i] [facility]UG[facility]IN ([facility]) Diastolic blood pressure 104 mm[Hg] 104 mm[Hg] [facility]UG[facility]IN ([facility]) Body height 63 [in_i] 63 [in_i] [facility]UG[facility]IN ([facility]) Diastolic blood pressure 104 mm[Hg] 104 mm[Hg] [facility]UGUSTIN ([facility]) Systolic blood pressure 158 mm[Hg] 158 mm[Hg] A THENA ([facility]) Systolic blood pressure 158 mm[Hg] 158 mm[Hg] A THENA ([facility]) Body height 63 [in_i] 63 [in_i] AUGUSTIN ([facility]) Diastolic blood pressure 104 mm[Hg] 104 mm[Hg] AUGUSTIN ([facility]) Systolic blood pressure 158 mm[Hg] 158 mm[Hg] A THENA ([facility]) Body height 63 [in_i] 63 [in_i] AUGUSTIN ([facility]) Diastolic blood pressure 104 mm[Hg] 104 mm[Hg] AUGUSTIN ([facility]) Systolic blood pressure 158 mm[Hg] 158 mm[Hg] A THENA ([facility]) Body height 63 [in_i] 63 [in_i] AUGUSTIN ([facility]) Diastolic blood pressure 104 mm[Hg] 104 mm[Hg] AUGUSTIN ([facility]) Systolic blood pressure 158 mm[Hg] 158 mm[Hg] A THENA ([facility]) Body height 63 [in_i] 63 [in_i] AUGUSTIN ([facility]) Diastolic blood pressure 104 mm[Hg] 104 mm[Hg] AUGUSTIN ([facility]) Systolic blood pressure 158 mm[Hg] 158 mm[Hg] A THENA ([facility]) Body height 63 [in_i] 63 [in_i] AUGUSTIN ([facility]) Diastolic blood pressure 104 mm[Hg] 104 mm[Hg] AUGUSTIN ([facility]) Systolic blood pressure 158 mm[Hg] 158 mm[Hg] A THENA ([facility]) Body height 63 [in_i] 63 [in_i] AUGUSTIN ([facility]) Diastolic blood pressure 104 mm[Hg] 104 mm[Hg] AUGUSTIN ([facility]) Systolic blood pressure 158 mm[Hg] 158 mm[Hg] A THENA ([facility]) Body height 63 [in_i] 63 [in_i] AUGUSTIN ([facility]) Diastolic blood pressure 104 mm[Hg] 104 mm[Hg] AUGUSTIN ([facility]) Systolic blood pressure 158 mm[Hg] 158 mm[Hg] A THENA ([facility]) Body height 63 [in_i] 63 [in_i] AUGUSTIN ([facility]) Diastolic blood pressure 104 mm[Hg] 104 mm[Hg] AUGUSTIN ([facility]) Systolic blood pressure 158 mm[Hg] 158 mm[Hg] A THENA ([facility]) Body height 63 [in_i] 63 [in_i] AUGUSTIN ([facility]) Diastolic blood pressure 104 mm[Hg] 104 mm[Hg] AUGUSTIN ([facility]) Systolic blood pressure 158 mm[Hg] 158 mm[Hg] A THENA ([facility]) Body height 63 [in_i] 63 [in_i] AUGUSTIN ([facility]) Diastolic blood pressure 104 mm[Hg] 104 mm[Hg] AUGUSTIN ([facility]) Systolic blood pressure 158 mm[Hg] 158 mm[Hg] A THENA ([facility]) Body height 63 [in_i] 63 [in_i] AUGUSTIN ([facility]) Diastolic blood pressure 104 mm[Hg] 104 mm[Hg] AUGUSTIN ([facility]) Systolic blood pressure 158 mm[Hg] 158 mm[Hg] A THENA ([facility]) Systolic blood pressure 158 mm[Hg] 158 mm[Hg] A THENA ([facility]) Body height 63 [in_i] 63 [in_i] AUGUSTIN ([facility]) Diastolic blood pressure 104 mm[Hg] 104 mm[Hg] AUGUSTIN ([facility]) Body height 63 [in_i] 63 [in_i] AUGUSTIN ([facility]) Diastolic blood pressure 104 mm[Hg] 104 mm[Hg] AUGUSTIN ([facility]) Systolic blood pressure 158 mm[Hg] 158 mm[Hg] A THENA ([facility]) Body height 63 [in_i] 63 [in_i] AUGUSTIN ([facility]) Diastolic blood pressure 104 mm[Hg] 104 mm[Hg] AUGUSTIN ([facility]) Systolic blood pressure 158 mm[Hg] 158 mm[Hg] A THENA ([facility]) Body height 63 [in_i] 63 [in_i] AUGUSTIN ([facility]) Diastolic blood pressure 104 mm[Hg] 104 mm[Hg] AUGUSTIN ([facility]) Systolic blood pressure 158 mm[Hg] 158 mm[Hg] A THENA ([facility]) Body height 63 [in_i] 63 [in_i] AUGUSTIN ([facility]) Diastolic blood pressure 104 mm[Hg] 104 mm[Hg] AUGUSTIN ([facility]) Systolic blood pressure 158 mm[Hg] 158 mm[Hg] A THENA ([facility]) Body height 63 [in_i] 63 [in_i] AUGUSTIN ([facility]) Diastolic blood pressure 104 mm[Hg] 104 mm[Hg] AUGUSTIN ([facility]) Systolic blood pressure 158 mm[Hg] 158 mm[Hg] A THENA ([facility]) Body height 63 [in_i] 63 [in_i] AUGUSTIN ([facility]) Diastolic blood pressure 104 mm[Hg] 104 mm[Hg] AUGUSTIN ([facility]) Systolic blood pressure 158 mm[Hg] 158 mm[Hg] A THENA ([facility]) Body height 63 [in_i] 63 [in_i] AUGUSTIN ([facility]) Diastolic blood pressure 104 mm[Hg] 104 mm[Hg] AUGUSTIN ([facility]) Systolic blood pressure 158 mm[Hg] 158 mm[Hg] A THENA ([facility]) Body height 63 [in_i] 63 [in_i] AUGUSTIN ([facility]) Diastolic blood pressure 104 mm[Hg] 104 mm[Hg] AUGUSTIN ([facility]) Systolic blood pressure 158 mm[Hg] 158 mm[Hg] A THENA ([facility]) Body height 63 [in_i] 63 [in_i] AUGUSTIN ([facility]) Diastolic blood pressure 104 mm[Hg] 104 mm[Hg] AUGUSTIN ([facility]) Systolic blood pressure 158 mm[Hg] 158 mm[Hg] A THENA ([facility]) Body height 63 [in_i] 63 [in_i] AUGUSTIN ([facility]) Diastolic blood pressure 104 mm[Hg] 104 mm[Hg] AUGUSTIN ([facility]) Systolic blood pressure 158 mm[Hg] 158 mm[Hg] A THENA ([facility]) Systolic blood pressure 158 mm[Hg] 158 mm[Hg] A THENA ([facility]) Body height 63 [in_i] 63 [in_i] AUGUSTIN ([facility]) Diastolic blood pressure 96 mm[Hg] 96 mm[Hg] AUGUSTIN ([facility]) Systolic blood pressure 158 mm[Hg] 158 mm[Hg] A THENA ([facility]) Body height 63 [in_i] 63 [in_i] AUGUSTIN ([facility]) Diastolic blood pressure 96 mm[Hg] 96 mm[Hg] AUGUSTIN ([facility]) Body height 63 [in_i] 63 [in_i] AUGUSTIN ([facility]) Diastolic blood pressure 96 mm[Hg] 96 mm[Hg] AUGUSTIN ([facility]) Systolic blood pressure 158 mm[Hg] 158 mm[Hg] A THENA ([facility]) Body height 63 [in_i] 63 [in_i] AUGUSTIN ([facility]) Diastolic blood pressure 96 mm[Hg] 96 mm[Hg] AUGUSTIN ([facility]) Systolic blood pressure 158 mm[Hg] 158 mm[Hg] A THENA ([facility]) Systolic blood pressure 158 mm[Hg] 158 mm[Hg] A THENA ([facility]) Body height 63 [in_i] 63 [in_i] AUGUSTIN ([facility]) Diastolic blood pressure 96 mm[Hg] 96 mm[Hg] AUGUSTIN ([facility]) Systolic blood pressure 158 mm[Hg] 158 mm[Hg] A THENA ([facility]) Body height 63 [in_i] 63 [in_i] AUGUSTIN ([facility]) Diastolic blood pressure 96 mm[Hg] 96 mm[Hg] AUGUSTIN ([facility]) Systolic blood pressure 158 mm[Hg] 158 mm[Hg] A THENA ([facility]) Body height 63 [in_i] 63 [in_i] AUGUSTIN ([facility]) Diastolic blood pressure 96 mm[Hg] 96 mm[Hg] AUGUSTIN ([facility]) Body height 63 [in_i] 63 [in_i] AUGUSTIN ([facility]) Diastolic blood pressure 96 mm[Hg] 96 mm[Hg] AUGUSTIN ([facility]) Systolic blood pressure 158 mm[Hg] 158 mm[Hg] A THENA ([facility]) Body height 63 [in_i] 63 [in_i] AUGUSTIN ([facility]) Diastolic blood pressure 96 mm[Hg] 96 mm[Hg] AUGUSTIN ([facility]) Systolic blood pressure 158 mm[Hg] 158 mm[Hg] A THENA ([facility]) Body height 63 [in_i] 63 [in_i] AUGUSTIN ([facility]) Diastolic blood pressure 96 mm[Hg] 96 mm[Hg] AUGUSTIN ([facility]) Systolic blood pressure 158 mm[Hg] 158 mm[Hg] A THENA ([facility]) Systolic blood pressure 158 mm[Hg] 158 mm[Hg] A THENA ([facility]) Body height 63 [in_i] 63 [in_i] AUGUSTIN ([facility]) Diastolic blood pressure 96 mm[Hg] 96 mm[Hg] AUGUSTIN ([facility]) Systolic blood pressure 158 mm[Hg] 158 mm[Hg] A THENA ([facility]) Body height 63 [in_i] 63 [in_i] AUGUSTIN ([facility]) Body height 63 [in_i] 63 [in_i] AUGUSTIN ([facility]) Diastolic blood pressure 96 mm[Hg] 96 mm[Hg] AUGUSTIN ([facility]) Diastolic blood pressure 96 mm[Hg] 96 mm[Hg] AUGUSTIN ([facility]) Systolic blood pressure 158 mm[Hg] 158 mm[Hg] A THENA ([facility]) Systolic blood pressure 158 mm[Hg] 158 mm[Hg] A THENA ([facility]) Body height 63 [in_i] 63 [in_i] AUGUSTIN ([facility]) Diastolic blood pressure 96 mm[Hg] 96 mm[Hg] AUGUSTIN ([facility]) Body height 63 [in_i] 63 [in_i] AUGUSTIN ([facility]) Diastolic blood pressure 96 mm[Hg] 96 mm[Hg] AUGUSTIN ([facility]) Systolic blood pressure 158 mm[Hg] 158 mm[Hg] A THENA ([facility]) Body height 63 [in_i] 63 [in_i] AUGUSTIN ([facility]) Diastolic blood pressure 96 mm[Hg] 96 mm[Hg] AUGUSTIN ([facility]) Systolic blood pressure 158 mm[Hg] 158 mm[Hg] A THENA ([facility]) Body height 63 [in_i] 63 [in_i] AUGUSTIN ([facility]) Diastolic blood pressure 96 mm[Hg] 96 mm[Hg] AUGUSTIN ([facility]) Systolic blood pressure 158 mm[Hg] 158 mm[Hg] A THENA ([facility]) Systolic blood pressure 158 mm[Hg] 158 mm[Hg] A THENA ([facility]) Body height 63 [in_i] 63 [in_i] AUGUSTIN ([facility]) Diastolic blood pressure 96 mm[Hg] 96 mm[Hg] AUGUSTIN ([facility]) Body height 63 [in_i] 63 [in_i] AUGUSTIN ([facility]) Diastolic blood pressure 96 mm[Hg] 96 mm[Hg] AUGUSTIN ([facility]) Systolic blood pressure 158 mm[Hg] 158 mm[Hg] A THENA ([facility]) Body height 63 [in_i] 63 [in_i] AUGUSTIN ([facility]) Diastolic blood pressure 96 mm[Hg] 96 mm[Hg] AUGUSTIN ([facility]) Systolic blood pressure 158 mm[Hg] 158 mm[Hg] A THENA ([facility]) Body height 63 [in_i] 63 [in_i] AUGUSTIN ([facility]) Diastolic blood pressure 96 mm[Hg] 96 mm[Hg] AUGUSTIN ([facility]) Systolic blood pressure 158 mm[Hg] 158 mm[Hg] A THENA ([facility]) Body height 63 [in_i] 63 [in_i] AUGUSTIN ([facility]) Diastolic blood pressure 96 mm[Hg] 96 mm[Hg] AUGUSTIN ([facility]) Systolic blood pressure 158 mm[Hg] 158 mm[Hg] A THENA ([facility]) Systolic blood pressure 158 mm[Hg] 158 mm[Hg] A THENA ([facility]) Body height 63 [in_i] 63 [in_i] AUGUSTIN ([facility]) Diastolic blood pressure 96 mm[Hg] 96 mm[Hg] AUGUSTIN ([facility]) Systolic blood pressure 158 mm[Hg] 158 mm[Hg] A THENA ([facility]) Body height 63 [in_i] 63 [in_i] AUGUSTIN ([facility]) Diastolic blood pressure 96 mm[Hg] 96 mm[Hg] AUGUSTIN ([facility]) Body height 63 [in_i] 63 [in_i] AUGUSTIN ([facility]) Diastolic blood pressure 96 mm[Hg] 96 mm[Hg] AUGUSTIN ([facility]) Systolic blood pressure 158 mm[Hg] 158 mm[Hg] A THENA ([facility]) Systolic blood pressure 158 mm[Hg] 158 mm[Hg] A THENA ([facility]) Body height 63 [in_i] 63 [in_i] AUGUSTIN ([facility]) Diastolic blood pressure 96 mm[Hg] 96 mm[Hg] AUGUSTIN ([facility]) Systolic blood pressure 158 mm[Hg] 158 mm[Hg] A THENA ([facility]) Body height 63 [in_i] 63 [in_i] AUGUSTIN ([facility]) Diastolic blood pressure 96 mm[Hg] 96 mm[Hg] AUGUSTIN ([facility]) Body height 63 [in_i] 63 [in_i] AUGUSTIN ([facility]) Diastolic blood pressure 96 mm[Hg] 96 mm[Hg] AUGUSTIN ([facility]) Systolic blood pressure 158 mm[Hg] 158 mm[Hg] A THENA ([facility]) Systolic blood pressure 158 mm[Hg] 158 mm[Hg] A THENA ([facility]) Body height 63 [in_i] 63 [in_i] AUGUSTIN ([facility]) Diastolic blood pressure 96 mm[Hg] 96 mm[Hg] AUGUSTIN ([facility]) Body height 63 [in_i] 63 [in_i] AUGUSTIN ([facility]) Diastolic blood pressure 96 mm[Hg] 96 mm[Hg] AUGUSTIN ([facility]) Systolic blood pressure 158 mm[Hg] 158 mm[Hg] A THENA ([facility]) Body height 63 [in_i] 63 [in_i] AUGUSTIN ([facility]) Diastolic blood pressure 96 mm[Hg] 96 mm[Hg] AUGUSTIN ([facility]) Patient Treatment Plan of Care Planned Activity Planned Date Details Description Data Source (s) Amoxicillin 500 MG / Clavulanate 125 MG Oral Tablet 04/20/20 12:00:00 AM EDT eCW1 ([facility]) Fluconazole 150 MG Oral Tablet 04/20/2021 12:00:00 AM EDT eCW1 ([facility]) zonisamide 50 MG Oral Capsule AUGUSTIN ([facility]) venlafaxine hydrochloride er 75 mg cp24 AUGUSTIN ([facility]) 24 HR venlafaxine 75 MG Extended Release Oral Capsule AUGUSTIN ([facility]) tramadol hcl 50 mg tabs ATH NORMA ([facility]) [place] 1,000 mg capsule Take 1 capsule every day by oral rout e. AUGUSTIN ([facility]) paroxetine hydrochloride 10 mg tabs AUGUSTIN ([facility]) paroxetine 10 mg tablet ATHE NA ([facility]) Naproxen 250 MG Oral Tablet AUGUSTIN ([facility]) naproxen 500 mg tabs AUGUSTIN ([facility]) methylprednisolone dose pack 4 mg tbpk AUGUSTIN ([facility]) methocarbamol 750 mg tabs A THENA ([facility]) Lorazepam 1 MG Oral Tablet A THENA ([facility]) Lidocaine Hydrochloride 30 MG/ML Topical Cream AUGUSTIN ([facility]) lidoc/banop/mi ac SWISH AND SPIT WITH 10 ML FOUR TIMES A DAY NEEDED FOR MUCOSITIS AUGUSTIN [facility] latanoprost 0.005 % soln AT PATRICIO ([facility]) ketotifen fumarate 0.025 % soln AUGUSTIN ([facility]) Ketotifen 0.25 MG/ML Ophthalmic Solution AUGUSTIN ([facility]) Ibuprofen 800 MG Oral Tablet AUGUSTIN ([facility]) Ibuprofen 600 MG Oral Tablet AUGUSTIN ([facility]) ibuprofen 800 mg tabs ATHEN A ([facility]) hydroco/apap tab 5-325mg ATH NORMA ([facility]) gabapentin 800 mg tabs ATHE NA ([facility]) fluticasone propionate 50 mcg/actuation nasal spray,suspension AUGUSTIN ([facility]) fluticasone propionate 50 mcg/act susp AUGUSTIN ([facility]) Fluconazole 150 MG Oral Tablet AUGUSTIN ([facility]) fluconazole 150 mg tabs ATH NORMA ([facility]) cetirizine hydrochloride 10 MG Oral Tablet AUGUSTIN ([facility]) Carisoprodol 350 MG Oral Tablet AUGUSTIN ([facility]) brimonidine tartrate 0.2 % soln AUGUSTIN ([facility]) Brimonidine tartrate 2 MG/ML Ophthalmic Solution AUGUSTIN ([facility]) baclofen 10 mg tabs AUGUSTIN ([facility]) artificial tears 1.4 % soln AUGUSTIN ([facility]) Amoxicillin 500 MG / Clavulanate 125 MG Oral Tablet AUGUSTIN ([facility]) Amoxicillin 500 MG Oral Capsule AUGUSTIN ([facility]) amoxicillin 500 mg caps ATH NORMA ([facility]) albuterol sulfate hfa 108 mcg/act aers AUGUSTIN ([facility]) zonisamide 50 MG Oral Capsule AUGUSTIN ([facility]) venlafaxine hydrochloride er 75 mg cp24 AUGUSTIN ([facility]) 24 HR venlafaxine 75 MG Extended Release Oral Capsule AUGUSTIN ([facility]) tramadol hcl 50 mg tabs ATH NORMA ([facility]) [place] [employer] 1,000 mg capsule Take 1 capsule every day by oral rout e. AUGUSTIN ([facility]) paroxetine hydrochloride 10 mg tabs AUGUSTIN ([facility]) paroxetine 10 mg tablet ATHE NA ([facility]) Naproxen 500 MG Oral Tablet AUGUSTIN ([facility]) Naproxen 250 MG Oral Tablet AUGUSTIN ([facility]) naproxen 500 mg tabs AUGUSTIN ([facility]) methylprednisolone dose pack 4 mg tbpk AUGUSTIN ([facility]) methocarbamol 750 mg tabs A THENA ([facility]) Lorazepam 1 MG Oral Tablet A THENA ([facility]) Lidocaine Hydrochloride 30 MG/ML Topical Cream AUGUSTIN ([facility]) lidoc/banop/mi ac SWISH AND SPIT WITH 10 ML FOUR TIMES A DAY NEEDED FOR MUCOSITIS AUGUSTIN ([facility] latanoprost 0.005 % soln AT PATRICIO ([facility]) ketotifen fumarate 0.025 % soln AGUUSTIN ([facility]) Ketotifen 0.25 MG/ML Ophthalmic Solution AUGUSTIN ([facility]) Ibuprofen 600 MG Oral Tablet AUGUSTIN ([facility]) ibuprofen 800 mg tabs ATHEN A ([facility]) hydroco/apap tab 5-325mg ATH NORMA ([facility]) gabapentin 800 mg tabs ATHE NA ([facility]) fluticasone propionate 50 mcg/actuation nasal spray,suspension AUGUSTIN ([facility]) fluticasone propionate 50 mcg/act susp AUGUSTIN ([facility]) fluconazole 150 mg tabs ATH NORMA ([facility]) cetirizine hydrochloride 10 MG Oral Tablet AUGUSTIN ([facility]) Carisoprodol 350 MG Oral Tablet AUGUSTIN ([facility]) brimonidine tartrate 0.2 % soln AUGUSTIN ([facility]) Brimonidine tartrate 2 MG/ML Ophthalmic Solution AUUGSTIN ([facility]) baclofen 10 mg tabs AUGUSTIN ([facility]) artificial tears 1.4 % soln AUGUSTIN ([facility]) Amoxicillin 500 MG Oral Capsule AUGUSTIN ([facility]) amoxicillin 500 mg caps ATH NORMA ([facility]) artificial tears 1.4 % soln AUGUSTIN ([facility]) Amoxicillin 500 MG Oral Capsule AUGUSTIN ([facility]) amoxicillin 500 mg caps ATH NORMA ([facility]) albuterol sulfate hfa 108 mcg/act aers AUGUSTIN ([facility]) zonisamide 50 MG Oral Capsule AUGUSTIN ([facility]) venlafaxine hydrochloride er 75 mg cp24 AUGUSTIN ([facility]) 24 HR venlafaxine 75 MG Extended Release Oral Capsule AUGUSTIN ([facility]) tramadol hcl 50 mg tabs ATH NORMA ([facility]) [place] [employer] 1,000 mg capsule Take 1 capsule every day by oral rout e. AUGUSTIN ([facility] [place] paroxetine hydrochloride 10 mg tabs AUGUSTIN ([facility] [place]) paroxetine 10 mg tablet ATHE NA ([facility] [place]) Omeprazole 40 MG Delayed Release Oral Capsule AUGUSTIN ([facility] [place]) Naproxen 500 MG Oral Tablet AUGUSTIN ([facility] [place]) Naproxen 250 MG Oral Tablet AUGUSTIN ([facility] [place]) naproxen 500 mg tabs AUGUSTIN ([facility] [place]) methylprednisolone dose pack 4 mg tbpk AUGUSTIN ([facility] [place]) Methocarbamol 750 MG Oral Tablet AUGUSTIN ([facility] [place]) methocarbamol 750 mg tabs A THENA ([facility] [place]) Lorazepam 1 MG Oral Tablet A THENA ([facility] [place]) Lidocaine Hydrochloride 30 MG/ML Topical Cream AUGUSTIN ([facility] [place]) lidoc/banop/mi ac SWISH AND SPIT WITH 10 ML FOUR TIMES A DAY NEEDED FOR MUCOSITIS [facility] latanoprost 0.005 % soln AT PATRICIO ([facility] [place]) ketotifen fumarate 0.025 % soln AUGUSTIN ([facility] [place]) Ketotifen 0.25 MG/ML Ophthalmic Solution AUGUSTIN ([facility] [place]) Ibuprofen 600 MG Oral Tablet AUGUSTIN ([facility] [place]) ibuprofen 800 mg tabs ATHEN A ([facility] [place]) hydroco/apap tab 5-325mg ATH NORMA ([facility] [place]) gabapentin 800 mg tabs ATHE NA ([facility] [place]) fluticasone propionate 50 mcg/actuation nasal spray,suspension AUGUSTIN ([facility] [place]) fluticasone propionate 50 mcg/act susp AUGUSTIN ([facility] [place]) Fluconazole 150 MG Oral Tablet AUGUSTIN ([facility] [place]) fluconazole 150 mg tabs ATH NORMA ([facility] [place]) cetirizine hydrochloride 10 MG Oral Tablet AUGUSTIN ([facility] [place]) Carisoprodol 350 MG Oral Tablet AUGUSTIN ([facility] [place]) zonisamide 50 MG Oral Capsule AUGUSTIN ([facility] [place]) venlafaxine hydrochloride er 75 mg cp24 AUGUSTIN ([facility] [place]) 24 HR venlafaxine 75 MG Extended Release Oral Capsule AUGUSTIN ([facility] [place]) tramadol hcl 50 mg tabs ATH NORMA ([facility] [place]) [place] [employer] 1,000 mg capsule Take 1 capsule every day by oral rout e. AUGUSTIN ([facility] [place]) paroxetine hydrochloride 10 mg tabs AUGUSTIN ([facility] [place]) paroxetine 10 mg tablet ATHE NA ([facility] [place]) Naproxen 500 MG Oral Tablet AUGUSTIN ([facility] [place]) Naproxen 250 MG Oral Tablet AUGUSTIN ([facility] [place]) naproxen 500 mg tabs AUGUSTIN ([facility] [place]) Methocarbamol 750 MG Oral Tablet AUGUSTIN ([facility] [place]) methylprednisolone dose pack 4 mg tbpk AUGUSTIN ([facility] [place]) methocarbamol 750 mg tabs A THENA ([facility] [place]) methocarbamol 750 mg tabs A THENA ([facility] [place]) Lorazepam 1 MG Oral Tablet A THENA ([facility] [place]) Lidocaine Hydrochloride 30 MG/ML Topical Cream AUGUSTIN ([facility] [place]) Lorazepam 1 MG Oral Tablet A THENA ([facility] [place]) Lidocaine Hydrochloride 30 MG/ML Topical Cream AUGUSTIN ([facility] [place]) lidoc/banop/mi ac SWISH AND SPIT WITH 10 ML FOUR TIMES A DAY NEEDED FOR MUCOSITIS [facility] latanoprost 0.005 % soln AT PATRICIO ([facility] [place]) ketotifen fumarate 0.025 % soln AUGUSTIN ([facility] [place]) Ketotifen 0.25 MG/ML Ophthalmic Solution AUGUSTIN ([facility] [place]) Ibuprofen 600 MG Oral Tablet AUGUSTIN ([facility] [place]) ibuprofen 800 mg tabs ATHEN A ([facility] [place]) hydroco/apap tab 5-325mg ATH NORMA ([facility] [place]) gabapentin 800 mg tabs ATHE NA ([facility] [place]) fluticasone propionate 50 mcg/actuation nasal spray,suspension AUGUSTIN ([facility] [place]) fluticasone propionate 50 mcg/act susp AUGUSTIN ([facility] [place]) Fluconazole 150 MG Oral Tablet AUGUSTIN ([facility] [place]) fluconazole 150 mg tabs ATH NORMA ([facility] [place]) cetirizine hydrochloride 10 MG Oral Tablet AUGUSTIN ([facility] [place]) Carisoprodol 350 MG Oral Tablet AUGUSTIN ([facility] [place]) brimonidine tartrate 0.2 % soln AUGUSTIN ([facility] [place]) Brimonidine tartrate 2 MG/ML Ophthalmic Solution AUGUSTIN ([facility] [place]) baclofen 10 mg tabs AUGUSTIN ([facility] [place]) artificial tears 1.4 % soln AUGUSTIN ([facility] [place]) Amoxicillin 500 MG Oral Capsule AUGUSTIN ([facility] [place]) amoxicillin 500 mg caps ATH NORMA ([facility] [place]) lidoc/banop/mi ac SWISH AND SPIT WITH 10 ML FOUR TIMES A DAY NEEDED FOR MUCOSITIS [facility]IN ([facility] [place] latanoprost 0.005 % soln AT PATRICIO ([facility] [place]) ketotifen fumarate 0.025 % soln AUGUSTIN ([facility] [place]) Ketotifen 0.25 MG/ML Ophthalmic Solution AUGUSTIN ([facility] [place]) Ibuprofen 600 MG Oral Tablet AUGUSTIN ([facility] [place]) ibuprofen 800 mg tabs ATHEN A ([facility] [place]) hydroco/apap tab 5-325mg ATH NORMA ([facility] [place]) gabapentin 800 mg tabs ATHE NA ([facility] [place]) fluticasone propionate 50 mcg/actuation nasal spray,suspension AUGUSTIN ([facility] [place]) fluticasone propionate 50 mcg/act susp AUGUSTIN ([facility] [place]) fluconazole 150 mg tabs ATH NORMA ([facility] [place]) cetirizine hydrochloride 10 MG Oral Tablet AUGUSTIN ([facility] [place]) Carisoprodol 350 MG Oral Tablet AGUUSTIN ([facility] [place]) brimonidine tartrate 0.2 % soln AUGUSTIN ([facility] [place]) Brimonidine tartrate 2 MG/ML Ophthalmic Solution AUGUSTIN ([facility] [place]) baclofen 10 mg tabs AUGUSTIN ([facility] [place]) artificial tears 1.4 % soln AUGUSTIN ([facility] [place]) Amoxicillin 500 MG Oral Capsule AUGUSTIN ([facility] [place]) amoxicillin 500 mg caps ATH NORMA ([facility] [place]) albuterol sulfate hfa 108 mcg/act aers AUGUSTIN ([facility] [place]) albuterol sulfate HFA 90 mcg/actuation a erosol inhaler USE 2 PUFFS BY MOUTH EVERY 4 HOURS NEEDED FOR COUGH AUGUSTIN ([facility] [place]) albuterol sulfate hfa 108 mcg/act aers AUGUSTIN ([facility] [place]) zonisamide 50 MG Oral Capsule AUGUSTIN ([facility] [place]) venlafaxine hydrochloride er 75 mg cp24 AUGUSTIN ([facility] [place]) 24 HR venlafaxine 75 MG Extended Release Oral Capsule AUGUSTIN ([facility] [place]) tramadol hcl 50 mg tabs ATH NORMA ([facility] [place]) [place] [employer] [employer] 1,000 mg capsule Take 1 capsule every day by oral rout e. AUGUSTIN ([facility] [place]) paroxetine hydrochloride 10 mg tabs AUGUSTIN ([facility] [place]) paroxetine 10 mg tablet ATHE NA ([facility] [place]) Omeprazole 40 MG Delayed Release Oral Capsule AUGUSTIN ([facility] [place]) Naproxen 500 MG Oral Tablet AUGUSTIN ([facility] [place]) Naproxen 250 MG Oral Tablet AUGUSTIN ([facility] [place]) naproxen 500 mg tabs AUGUSTIN ([facility] [place]) albuterol sulfate hfa 108 mcg/act aers AUGUSTIN ([facility] [place]) methylprednisolone dose pack 4 mg tbpk AUGUSTIN ([facility] [place]) Methocarbamol 750 MG Oral Tablet AUGUSTIN ([facility] [place]) methocarbamol 750 mg tabs A THENA ([facility] [place]) Lorazepam 1 MG Oral Tablet A THENA ([facility] [place]) Lidocaine Hydrochloride 30 MG/ML Topical Cream AUGUSTIN ([facility] [place]) lidoc/banop/mi ac SWISH AND SPIT WITH 10 ML FOUR TIMES A DAY NEEDED FOR MUCOSITIS [facility] latanoprost 0.005 % soln AT PATRICIO ([facility] [place]) ketotifen fumarate 0.025 % soln AUGUSTIN ([facility] [place]) Ketotifen 0.25 MG/ML Ophthalmic Solution AUGUSTIN ([facility] [place]) Ibuprofen 600 MG Oral Tablet AUGUSTIN ([facility] [place]) ibuprofen 800 mg tabs ATHEN A ([facility] [place]) zonisamide 50 MG Oral Capsule AUGUSTIN ([facility] [place]) brimonidine tartrate 0.2 % soln AUGUSTIN ([facility] [place]) Brimonidine tartrate 2 MG/ML Ophthalmic Solution AUGUSTIN ([facility] [place]) baclofen 10 mg tabs AUGUSTIN ([facility] [place]) artificial tears 1.4 % soln AUGUSTIN ([facility] [place]) Amoxicillin 500 MG Oral Capsule AUGUSTIN ([facility] [place]) amoxicillin 500 mg caps ATH NORMA ([facility] [place]) albuterol sulfate HFA 90 mcg/actuation a erosol inhaler USE 2 PUFFS BY MOUTH EVERY 4 HOURS NEEDED FOR COUGH AUGUSTIN ([facility] [place]) albuterol sulfate hfa 108 mcg/act aers AUGUSTIN ([facility] [place]) venlafaxine hydrochloride er 75 mg cp24 AUGUSTIN ([facility] [place]) 24 HR venlafaxine 75 MG Extended Release Oral Capsule AUGUSTIN ([facility] [place]) tramadol hcl 50 mg tabs ATH NORMA ([facility] [place]) [place] [employer] [employer] 1,000 mg capsule Take 1 capsule every day by oral rout e. AUGUSTIN ([facility] [place]) paroxetine hydrochloride 10 mg tabs AUGUSTIN ([facility] [place]) paroxetine 10 mg tablet ATHE NA ([facility] [place]) Naproxen 500 MG Oral Tablet AUGUSTIN ([facility] [place]) Naproxen 250 MG Oral Tablet AUGUSTIN ([facility] [place]) naproxen 500 mg tabs AUGUSTIN ([facility] [place]) methylprednisolone dose pack 4 mg tbpk AUGUSTIN ([facility] [place] methocarbamol 750 mg tabs A THENA ([facility] [place]) Lorazepam 1 MG Oral Tablet A THENA ([facility] [place]) Lidocaine Hydrochloride 30 MG/ML Topical Cream AUGUSTIN ([facility] [place]) lidoc/banop/mi ac SWISH AND SPIT WITH 10 ML FOUR TIMES A DAY NEEDED FOR MUCOSITIS [facility]IN ([facility] latanoprost 0.005 % soln AT PATRICIO ([facility] [place]) ketotifen fumarate 0.025 % soln AUGUSTIN ([facility] [place]) Ketotifen 0.25 MG/ML Ophthalmic Solution AUGUSTIN ([facility] [place]) Ibuprofen 600 MG Oral Tablet AUGUSTIN ([facility] [place]) ibuprofen 800 mg tabs ATHEN A ([facility] [place]) hydroco/apap tab 5-325mg ATH NORMA ([facility] [place]) gabapentin 800 mg tabs ATHE NA ([facility]) fluticasone propionate 50 mcg/actuation nasal spray,suspension AUGUSTIN ([facility] [place]) fluticasone propionate 50 mcg/act susp AUGUSTIN ([facility] [place]) fluconazole 150 mg tabs ATH NORMA ([facility] [place]) cetirizine hydrochloride 10 MG Oral Tablet AUGUSTIN ([facility] [place]) Carisoprodol 350 MG Oral Tablet AUGUSTIN ([facility] [place]) brimonidine tartrate 0.2 % soln AUGUSTIN ([facility] [place]) Brimonidine tartrate 2 MG/ML Ophthalmic Solution AUGUSTIN ([facility] [place]) baclofen 10 mg tabs AUGUSTIN ([facility] [place]) hydroco/apap tab 5-325mg ATH NORMA ([facility] [place]) gabapentin 800 mg tabs ATHE NA ([facility] [place]) fluticasone propionate 50 mcg/actuation nasal spray,suspension AUGUSTIN ([facility] [place]) fluticasone propionate 50 mcg/act susp AUGUSTIN ([facility] [place]) Fluconazole 150 MG Oral Tablet AUGUSTIN ([facility] [place]) fluconazole 150 mg tabs ATH NORMA ([facility] [place]) cetirizine hydrochloride 10 MG Oral Tablet AUGUSTIN ([facility] [place]) Carisoprodol 350 MG Oral Tablet AUGUSTIN ([facility] [place]) brimonidine tartrate 0.2 % soln AUGUSTIN ([facility] [place]) Brimonidine tartrate 2 MG/ML Ophthalmic Solution AUGUSTIN ([facility] [place]) baclofen 10 mg tabs AUGUSTIN ([facility] [place]) artificial tears 1.4 % soln AUGUSTIN ([facility] [place]) Amoxicillin 500 MG Oral Capsule AUGUSTIN ([facility] [place]) amoxicillin 500 mg caps ATH NORMA ([facility] [place]) albuterol sulfate HFA 90 mcg/actuation a erosol inhaler USE 2 PUFFS BY MOUTH EVERY 4 HOURS NEEDED FOR COUGH AUGUSTIN ([facility] [place]) albuterol sulfate hfa 108 mcg/act aers AUGUSTIN ([facility] [place]) zonisamide 50 MG Oral Capsule AUGUSTIN ([facility] [place]) venlafaxine hydrochloride er 75 mg cp24 AUGUSTIN ([facility] [place]) 24 HR venlafaxine 75 MG Extended Release Oral Capsule AUGUSTIN ([facility] [place]) tramadol hcl 50 mg tabs ATH NORMA ([facility] [place]) [place] [employer] [employer] 1,000 mg capsule Take 1 capsule every day by oral rout e. AUGUSTIN ([facility] [place]) paroxetine hydrochloride 10 mg tabs AUGUSTIN ([facility] [place]) paroxetine 10 mg tablet ATHE NA ([facility] [place]) Omeprazole 40 MG Delayed Release Oral Capsule AUGUSTIN ([facility] [place]) Naproxen 500 MG Oral Tablet AUGUSTIN ([facility] [place]) Naproxen 250 MG Oral Tablet AUGUSTIN ([facility] [place]) naproxen 500 mg tabs AUGUSTIN ([facility] [place]) methylprednisolone dose pack 4 mg tbpk AUGUSTIN ([facility] [place]) Methocarbamol 750 MG Oral Tablet AUGUSTIN ([facility] [place]) methocarbamol 750 mg tabs A THENA ([facility] [place]) Lorazepam 1 MG Oral Tablet A THENA ([facility] [place]) Lidocaine Hydrochloride 30 MG/ML Topical Cream AUGUSTIN ([facility] [place]) lidoc/banop/mi ac SWISH AND SPIT WITH 10 ML FOUR TIMES A DAY NEEDED FOR MUCOSITIS [facility]IN ([facility] latanoprost 0.005 % soln AT PATRICIO ([facility] [place]) ketotifen fumarate 0.025 % soln AUGUSTIN ([facility] [place]) Ketotifen 0.25 MG/ML Ophthalmic Solution AUGUSTIN ([facility] [place]) Ibuprofen 600 MG Oral Tablet AUGUSTIN ([facility] [place]) ibuprofen 800 mg tabs ATHEN A ([facility] [place]) hydroco/apap tab 5-325mg ATH NORMA ([facility] [place]) gabapentin 800 mg tabs ATHE NA ([facility] [place]) fluticasone propionate 50 mcg/actuation nasal spray,suspension AUGUSTIN ([facility] [place] zonisamide 50 MG Oral Capsule AUGUSTIN ([facility] [place]) fluticasone propionate 50 mcg/act susp AUGUSTIN ([facility] [place]) Fluconazole 150 MG Oral Tablet AUGUSTIN ([facility] [place]) fluconazole 150 mg tabs ATH NORMA ([facility] [place]) cetirizine hydrochloride 10 MG Oral Tablet AUGUSTIN ([facility] [place]) Carisoprodol 350 MG Oral Tablet AUGUSTIN ([facility] [place]) brimonidine tartrate 0.2 % soln AUGUSTIN ([facility] [place]) Brimonidine tartrate 2 MG/ML Ophthalmic Solution AUGUSTIN ([facility] [place]) baclofen 10 mg tabs AUGUSTIN ([facility] [place]) venlafaxine hydrochloride er 75 mg cp24 AUGUSTIN ([facility] [place]) 24 HR venlafaxine 75 MG Extended Release Oral Capsule AUGUSTIN ([facility] [place]) tramadol hcl 50 mg tabs ATH NORMA ([facility] [place]) [place] [employer] 1,000 mg capsule Take 1 capsule every day by oral rout e. AUGUSTIN ([facility] [place]) paroxetine hydrochloride 10 mg tabs AUGUSTIN ([facility] [place]) paroxetine 10 mg tablet ATHE NA ([facility] [place]) Omeprazole 40 MG Delayed Release Oral Capsule AUGUSTIN ([facility] [place]) Naproxen 500 MG Oral Tablet AUGUSTIN ([facility] [place]) artificial tears 1.4 % soln AUGUSTIN ([facility] [place]) Naproxen 250 MG Oral Tablet AUGUSTIN ([facility] [place]) Amoxicillin 500 MG Oral Capsule AUGUSTIN ([facility] [place]) amoxicillin 500 mg caps ATH NORMA ([facility] [place]) naproxen 500 mg tabs AUGUSTIN ([facility] [place]) albuterol sulfate HFA 90 mcg/actuation a erosol inhaler USE 2 PUFFS BY MOUTH EVERY 4 HOURS NEEDED FOR COUGH AUGUSTIN ([facility] [place]) albuterol sulfate hfa 108 mcg/act aers AUGUSTIN ([facility] [place]) methylprednisolone dose pack 4 mg tbpk AUGUSTIN ([facility] [place]) zonisamide 50 MG Oral Capsule AUGUSTIN ([facility] [place]) Methocarbamol 750 MG Oral Tablet AUGUSTIN ([facility] [place]) venlafaxine hydrochloride er 75 mg cp24 AUGUSTIN ([facility] [place]) 24 HR venlafaxine 75 MG Extended Release Oral Capsule AUGUSTIN ([facility] [place]) tramadol hcl 50 mg tabs ATH NORMA ([facility] [place]) [place] [employer] [employer] 1,000 mg capsule Take 1 capsule every day by oral rout e. AUGUSTIN ([facility] [place]) methocarbamol 750 mg tabs A THENA ([facility] [place]) paroxetine hydrochloride 10 mg tabs AUGUSTIN ([facility] [place]) paroxetine 10 mg tablet ATHE NA ([facility] [place]) Omeprazole 40 MG Delayed Release Oral Capsule AUGUSTIN ([facility] [place]) Lorazepam 1 MG Oral Tablet A THENA ([facility] [place]) Naproxen 500 MG Oral Tablet AUGUSTIN ([facility] [place]) Naproxen 250 MG Oral Tablet AUGUSTIN ([facility] [place]) naproxen 500 mg tabs AUGUSTIN ([facility] [place]) methylprednisolone dose pack 4 mg tbpk AUGUSTIN ([facility] [place]) Lidocaine Hydrochloride 30 MG/ML Topical Cream AUGUSTIN ([facility] [place]) lidoc/banop/mi ac SWISH AND SPIT WITH 10 ML FOUR TIMES A DAY NEEDED FOR MUCOSITIS [facility]UGUSTIN ([facility] latanoprost 0.005 % soln AT PAT[place]ICIO ([facility]) ketotifen fumarate 0.025 % soln [place]IN ([facility]) Ketotifen 0.25 MG/ML Ophthalmic Solution [place]IN ([facility]) Ibuprofen 600 MG Oral Tablet [place]IN ([facility]) ibuprofen 800 mg tabs ATHEN A ([facility]) hydroco/apap tab 5-325mg ATH NORMA ([facility]) gabapentin 800 mg tabs ATHE NA ([facility]) fluticasone propionate 50 mcg/actuation nasal spray,suspension [place]IN ([facility]) fluticasone propionate 50 mcg/act susp [place]IN ([facility]) Fluconazole 150 MG Oral Tablet AUGUSTIN ([facility]) fluconazole 150 mg tabs ATH NORMA ([facility]) venlafaxine hydrochloride er 75 mg cp24 [place]IN ([facility]) 24 HR venlafaxine 75 MG Extended Release Oral Capsule AUGUSTIN ([facility]) tramadol hcl 50 mg tabs ATH NORMA ([facility]) [place] 1,000 mg capsule Take 1 capsule every day by oral rout e. [place]UGUSTIN ([facility]) paroxetine hydrochloride 10 mg tabs AUG[place]IN ([facility] paroxetine 10 mg tablet ATHE NA ([facility]) Naproxen 500 MG Oral Tablet AUGUSTIN ([facility]) Naproxen 250 MG Oral Tablet A[place]IN ([facility]) naproxen 500 mg tabs AUG[place]IN ([facility]) methylprednisolone dose pack 4 mg tbpk AUGUSTIN ([facility]) methocarbamol 750 mg tabs A THENA ([facility]) Lorazepam 1 MG Oral Tablet A THENA ([facility]) Lidocaine Hydrochloride 30 MG/ML Topical Cream AUGUSTIN ([facility]) latanoprost 0.005 % soln AT PATRICIO ([facility]) Ibuprofen 600 MG Oral Tablet [place]IN ([facility]) ibuprofen 800 mg tabs ATHEN A ([facility]) hydroco/apap tab 5-325mg ATH NORMA ([facility]) gabapentin 800 mg tabs ATHE NA ([facility]) fluticasone propionate 50 mcg/actuation nasal spray,suspension [place]IN ([facility]) fluticasone propionate 50 mcg/act susp [place]IN ([facility]) fluconazole 150 mg tabs ATH NORMA ([facility]) Carisoprodol 350 MG Oral Tablet AUG[place]IN ([facility]) venlafaxine hydrochloride er 75 mg cp24 [place]IN ([facility]) 24 HR venlafaxine 75 MG Extended Release Oral Capsule [place]UG[place]IN ([facility]) tramadol hcl 50 mg tabs ATH NORMA ([facility]) brimonidine tartrate 0.2 % soln [place]IN ([facility]) Brimonidine tartrate 2 MG/ML Ophthalmic Solution [place]IN ([facility]) Baclofen 10 MG Oral Tablet A THENA ([facility]) baclofen 10 mg tabs [place]UG[place]IN ([facility]) artificial tears 1.4 % soln AUG[place]IN ([facility]) Amoxicillin 500 MG Oral Capsule [place]UG[place]IN ([facility]) amoxicillin 500 mg caps ATH NORMA ([facility]) albuterol sulfate HFA 90 mcg/actuation a erosol inhaler USE 2 PUFFS BY MOUTH EVERY 4 HOURS NEEDED FOR COUGH AUGUSTIN ([facility]) albuterol sulfate hfa 108 mcg/act aers [place]IN ([facility]) [place] 1,000 mg capsule Take 1 capsule every day by oral rout e. AUGUSTIN ([facility]) paroxetine hydrochloride 10 mg tabs AUG[place]IN ([facility]) paroxetine 10 mg tablet ATHE NA ([facility]) Naproxen 500 MG Oral Tablet AUG[place]IN ([facility]) Naproxen 250 MG Oral Tablet [place]IN ([facility]) naproxen 500 mg tabs [place]IN ([facility]) methylprednisolone dose pack 4 mg tbpk AUG[place]IN ([facility]) methocarbamol 750 mg tabs A THENA ([facility]) Lorazepam 1 MG Oral Tablet A THENA ([facility]) Lidocaine Hydrochloride 30 MG/ML Topical Cream AUGUSTIN ([facility]) latanoprost 0.005 % soln AT PATRICIO ([facility]) Ibuprofen 600 MG Oral Tablet [place]IN ([facility]) ibuprofen 800 mg tabs ATHEN A ([facility]) hydroco/apap tab 5-325mg ATH NORMA ([facility]) gabapentin 800 mg tabs ATHE NA ([facility]) fluticasone propionate 50 mcg/actuation nasal spray,suspension AUG[place]IN ([facility]) fluticasone propionate 50 mcg/act susp [place]IN ([facility]) fluconazole 150 mg tabs ATH NORMA ([facility]) Carisoprodol 350 MG Oral Tablet [place]UG[place]IN ([facility]) brimonidine tartrate 0.2 % soln [place]IN ([facility]) Brimonidine tartrate 2 MG/ML Ophthalmic Solution [place]IN ([facility]) Baclofen 10 MG Oral Tablet A THENA ([facility]) baclofen 10 mg tabs [place]IN ([facility]) artificial tears 1.4 % soln [place]IN ([facility]) Amoxicillin 500 MG Oral Capsule [place]IN ([facility]) amoxicillin 500 mg caps ATH NORMA ([facility]) albuterol sulfate HFA 90 mcg/actuation a erosol inhaler USE 2 PUFFS BY MOUTH EVERY 4 HOURS NEEDED FOR COUGH [place]UG[place]IN ([facility]) albuterol sulfate hfa 108 mcg/act aers [place]UGUSTIN ([facility]) cetirizine hydrochloride 10 MG Oral Tablet AUG[place]IN ([facility]) Carisoprodol 350 MG Oral Tablet AUG[place]IN ([facility]) brimonidine tartrate 0.2 % soln [place]IN ([facility]) Brimonidine tartrate 2 MG/ML Ophthalmic Solution A[place]IN ([facility]) baclofen 10 mg tabs A[place]IN ([facility]) artificial tears 1.4 % soln AUG[place]IN ([facility]) Amoxicillin 500 MG Oral Capsule AUG[place]IN ([facility]) amoxicillin 500 mg caps ATH NORMA ([facility]) albuterol sulfate HFA 90 mcg/actuation a erosol inhaler USE 2 PUFFS BY MOUTH EVERY 4 HOURS NEEDED FOR COUGH AUGUSTIN ([facility]) albuterol sulfate hfa 108 mcg/act aers AUGUSTIN ([facility]) venlafaxine hydrochloride er 75 mg cp24 [place]IN ([facility]) 24 HR venlafaxine 75 MG Extended Release Oral Capsule [place]UG[place]IN ([facility]) tramadol hcl 50 mg tabs ATH NORMA ([facility]) [place] 1,000 mg capsule Take 1 capsule every day by oral rout e. [place]IN ([facility]) paroxetine hydrochloride 10 mg tabs AUG[place]IN ([facility]) paroxetine 10 mg tablet ATHE NA ([facility]) Naproxen 500 MG Oral Tablet AUG[place]IN ([facility]) Naproxen 250 MG Oral Tablet [place]IN ([facility]) naproxen 500 mg tabs [place]UG[place]IN ([facility]) methylprednisolone dose pack 4 mg tbpk [place]UGUSTIN ([facility]) methocarbamol 750 mg tabs A THENA ([facility]) Lorazepam 1 MG Oral Tablet A THENA ([facility]) Lidocaine Hydrochloride 30 MG/ML Topical Cream AUGUSTIN ([facility]) latanoprost 0.005 % soln AT PATRICIO ([facility]) Ibuprofen 600 MG Oral Tablet [place]IN ([facility]) ibuprofen 800 mg tabs ATHEN A ([facility]) hydroco/apap tab 5-325mg ATH NORMA ([facility]) gabapentin 800 mg tabs ATHE NA ([facility]) fluticasone propionate 50 mcg/actuation nasal spray,suspension AUGUSTIN ([facility]) fluticasone propionate 50 mcg/act susp [place]IN ([facility]) fluconazole 150 mg tabs ATH NORMA ([facility]) Carisoprodol 350 MG Oral Tablet AUG[place]IN ([facility]) brimonidine tartrate 0.2 % soln [place]IN ([facility]) Brimonidine tartrate 2 MG/ML Ophthalmic Solution AUG[place]IN ([facility]) Baclofen 10 MG Oral Tablet A THENA ([facility]) baclofen 10 mg tabs AUGUSTIN ([facility]) artificial tears 1.4 % soln AUG[place]IN ([facility]) Amoxicillin 500 MG Oral Capsule AUG[place]IN ([facility]) amoxicillin 500 mg caps ATH NORMA ([facility]) albuterol sulfate HFA 90 mcg/actuation a erosol inhaler USE 2 PUFFS BY MOUTH EVERY 4 HOURS NEEDED FOR COUGH AUGUSTIN ([facility]) albuterol sulfate hfa 108 mcg/act aers AUGUSTIN ([facility]) tramadol hcl 50 mg tabs ATH NORMA ([facility]) Lidocaine Hydrochloride 30 MG/ML Topical Cream AUG[place]IN ([facility]) Naproxen 250 MG Oral Tablet AUG[place]IN ([facility]) naproxen 500 mg tabs AUGUSTIN ([facility]) methylprednisolone dose pack 4 mg tbpk AUG[place]IN ([facility]) methocarbamol 750 mg tabs A THENA ([facility]) Lidocaine Hydrochloride 30 MG/ML Topical Cream AUGUSTIN ([facility]) latanoprost 0.005 % soln AT PATRICIO ([facility]) ibuprofen 800 mg tabs ATHEN A ([facility]) gabapentin 800 mg tabs ATHE NA ([facility]) fluticasone propionate 50 mcg/act susp AUGUSTIN ([facility]) fluconazole 150 mg tabs ATH NORMA ([facility]) Carisoprodol 350 MG Oral Tablet AUG[place]IN ([facility]) brimonidine tartrate 0.2 % soln [place]IN ([facility]) Baclofen 10 MG Oral Tablet A THENA ([facility]) baclofen 10 mg tabs AUG[place]IN ([facility]) Amoxicillin 500 MG Oral Capsule AUGUSTIN ([facility]) amoxicillin 500 mg caps ATH NORMA ([facility]) albuterol sulfate hfa 108 mcg/act aers AUGUSTIN ([facility]) latanoprost 0.005 % soln AT PATRICIO ([facility]) ibuprofen 800 mg tabs ATHEN A ([facility]) gabapentin 800 mg tabs ATHE NA ([facility]) fluticasone propionate 50 mcg/act susp AUGUSTIN ([facility]) fluconazole 150 mg tabs ATH NORMA ([facility]) Carisoprodol 350 MG Oral Tablet AUGUSTIN ([facility]) brimonidine tartrate 0.2 % soln [place]UG[place]IN ([facility]) Baclofen 10 MG Oral Tablet A THENA ([facility]) baclofen 10 mg tabs AUG[place]IN ([facility]) Amoxicillin 500 MG Oral Capsule AUGUSTIN ([facility]) amoxicillin 500 mg caps ATH NORMA ([facility]) albuterol sulfate hfa 108 mcg/act aers AUG[place]IN ([facility]) tramadol hcl 50 mg tabs ATH NORMA ([facility]) Naproxen 250 MG Oral Tablet AUGUSTIN ([facility]) naproxen 500 mg tabs AUGUSTIN ([facility]) methylprednisolone dose pack 4 mg tbpk AUG[place]IN ([facility]) methocarbamol 750 mg tabs A THENA ([facility]) tramadol hcl 50 mg tabs ATH NORMA ([facility]) Naproxen 250 MG Oral Tablet AUGUSTIN ([facility]) naproxen 500 mg tabs AUGUSTIN ([facility]) methylprednisolone dose pack 4 mg tbpk AUGUSTIN ([facility]) methocarbamol 750 mg tabs A THENA ([facility]) Lidocaine Hydrochloride 30 MG/ML Topical Cream AUGUSTIN ([facility]) tramadol hcl 50 mg tabs ATH NORMA ([facility]) Naproxen 250 MG Oral Tablet AUGUSTIN ([facility]) naproxen 500 mg tabs AUGUSTIN ([facility]) methylprednisolone dose pack 4 mg tbpk AUGUSTIN ([facility]) methocarbamol 750 mg tabs A THENA ([facility]) Lidocaine Hydrochloride 30 MG/ML Topical Cream AUGUSTIN ([facility]) latanoprost 0.005 % soln AT PATRICIO ([facility]) ibuprofen 800 mg tabs ATHEN A ([facility]) gabapentin 800 mg tabs ATHE NA ([facility]) fluticasone propionate 50 mcg/act susp AUGUSTIN ([facility]) fluconazole 150 mg tabs ATH NORMA ([facility]) latanoprost 0.005 % soln AT PATRICIO ([facility]) Naproxen 250 MG Oral Tablet AUGUSTIN ([facility]) Carisoprodol 350 MG Oral Tablet AUGUSTIN ([facility]) brimonidine tartrate 0.2 % soln AUGUSTIN ([facility]) Baclofen 10 MG Oral Tablet A THENA ([facility]) baclofen 10 mg tabs AUGUSTIN ([facility]) Amoxicillin 500 MG Oral Capsule AUGUSTIN ([facility]) amoxicillin 500 mg caps ATH NORMA ([facility]) albuterol sulfate hfa 108 mcg/act aers AUGUSTIN ([facility]) naproxen 500 mg tabs AUGUSTIN ([facility]) methylprednisolone dose pack 4 mg tbpk AUGUSTIN ([facility]) methocarbamol 750 mg tabs A THENA ([facility]) Lidocaine Hydrochloride 30 MG/ML Topical Cream AUGUSTIN ([facility]) latanoprost 0.005 % soln AT PATRICIO ([facility]) ibuprofen 800 mg tabs ATHEN A ([facility]) gabapentin 800 mg tabs ATHE NA ([facility]) fluticasone propionate 50 mcg/act susp AGUUSTIN ([facility]) fluconazole 150 mg tabs ATH NORMA ([facility]) Carisoprodol 350 MG Oral Tablet AUGUSTIN ([facility]) brimonidine tartrate 0.2 % soln AUGUSTIN ([facility]) Baclofen 10 MG Oral Tablet A THENA ([facility]) Lidocaine Hydrochloride 30 MG/ML Topical Cream AUGUSTIN ([facility]) latanoprost 0.005 % soln AT PATRICIO ([facility]) ibuprofen 800 mg tabs ATHEN A ([facility]) gabapentin 800 mg tabs ATHE NA ([facility]) fluticasone propionate 50 mcg/act susp AUGUSTIN ([facility]) fluconazole 150 mg tabs ATH NORMA ([facility]) baclofen 10 mg tabs AUG[place]IN ([facility]) Amoxicillin 500 MG Oral Capsule AUGUSTIN ([facility]) amoxicillin 500 mg caps ATH NORMA ([facility]) albuterol sulfate hfa 108 mcg/act aers AUGUSTIN ([facility]) Carisoprodol 350 MG Oral Tablet AUGUSTIN ([facility]) tramadol hcl 50 mg tabs ATH NORMA ([facility]) brimonidine tartrate 0.2 % soln [place]UG[place]IN ([facility]) Baclofen 10 MG Oral Tablet A THENA ([facility]) baclofen 10 mg tabs AUGUSTIN ([facility]) Amoxicillin 500 MG Oral Capsule AUGUSTIN ([facility]) amoxicillin 500 mg caps ATH NORMA ([facility]) albuterol sulfate hfa 108 mcg/act aers AUGUSTIN ([facility]) Naproxen 250 MG Oral Tablet AUGUSTIN ([facility]) naproxen 500 mg tabs AUGUSTIN ([facility]) methylprednisolone dose pack 4 mg tbpk AUGUSTIN ([facility] methocarbamol 750 mg tabs A THENA ([facility] ibuprofen 800 mg tabs ATHEN A ([facility] gabapentin 800 mg tabs ATHE NA ([facility]) fluticasone propionate 50 mcg/act susp AUGUSTIN ([facility]) fluconazole 150 mg tabs ATH NORMA ([facility]) Carisoprodol 350 MG Oral Tablet AUGUSTIN ([facility]) brimonidine tartrate 0.2 % soln AUGUSTIN ([facility]) Baclofen 10 MG Oral Tablet A THENA ([facility]) baclofen 10 mg tabs AUG[place]IN ([facility]) Amoxicillin 500 MG Oral Capsule AUGUSTIN ([facility]) amoxicillin 500 mg caps ATH NORMA ([facility]) albuterol sulfate hfa 108 mcg/act aers AUGUSTIN ([facility]) tramadol hcl 50 mg tabs ATH NORMA ([facility]) Naproxen 250 MG Oral Tablet AUGUSTIN ([facility]) naproxen 500 mg tabs AUGUSTIN ([facility]) methylprednisolone dose pack 4 mg tbpk AUGUSTIN ([facility]) methocarbamol 750 mg tabs A THENA ([facility]) Lidocaine Hydrochloride 30 MG/ML Topical Cream AUGUSTIN ([facility]) latanoprost 0.005 % soln AT PATRICIO ([facility]) tramadol hcl 50 mg tabs ATH NORMA ([facility]) Baclofen 10 MG Oral Tablet A THENA ([facility]) baclofen 10 mg tabs AUGUSTIN ([facility]) Amoxicillin 500 MG Oral Capsule AUGUSTIN ([facility]) amoxicillin 500 mg caps ATH NORMA ([facility]) albuterol sulfate hfa 108 mcg/act aers AUGUSTIN ([facility]) tramadol hcl 50 mg tabs ATH NORMA ([facility]) Lidocaine Hydrochloride 30 MG/ML Topical Cream AUGUSTIN ([facility]) latanoprost 0.005 % soln AT PATRICIO ([facility]) ibuprofen 800 mg tabs ATHEN A ([facility] gabapentin 800 mg tabs ATHE NA ([facility] fluticasone propionate 50 mcg/act susp AUGUSTIN ([facility]) fluconazole 150 mg tabs ATH NORMA ([facility]) brimonidine tartrate 0.2 % soln A[place]USTIN (Pain [facility]) baclofen 10 mg tabs AUGUSTIN ([facility]) Amoxicillin 500 MG Oral Capsule AUGUSTIN ([facility]) amoxicillin 500 mg caps ATH NORMA ([facility]) albuterol sulfate hfa 108 mcg/act aers [place]UGUSTIN ([facility]) tramadol hcl 50 mg tabs ATH NORMA ([facility]) Lidocaine Hydrochloride 30 MG/ML Topical Cream AUGUSTIN ([facility]) latanoprost 0.005 % soln AT PATRICIO ([facility]) ibuprofen 800 mg tabs ATHEN A ([facility]) Lidocaine Hydrochloride 30 MG/ML Topical Cream AUGUSTIN ([facility]) latanoprost 0.005 % soln AT PATRICIO ([facility]) ibuprofen 800 mg tabs ATHEN A ([facility]) gabapentin 800 mg tabs ATHE NA ([facility]) fluticasone propionate 50 mcg/act susp AUGUSTIN ([facility]) fluconazole 150 mg tabs ATH NORMA ([facility]) brimonidine tartrate 0.2 % soln AUGUSTIN ([facility]) baclofen 10 mg tabs AUGUSTIN ([facility]) Amoxicillin 500 MG Oral Capsule AUGUSTIN ([facility]) amoxicillin 500 mg caps ATH NORMA ([facility]) albuterol sulfate hfa 108 mcg/act aers AUGUSTIN ([facility]) Lidocaine Hydrochloride 30 MG/ML Topical Cream AUGUSTIN ([facility]) latanoprost 0.005 % soln AT PATRICIO ([facility]) ibuprofen 800 mg tabs ATHEN A ([facility]) gabapentin 800 mg tabs ATHE NA ([facility]) fluticasone propionate 50 mcg/act susp AUGUSTIN ([facility]) fluconazole 150 mg tabs ATH NORMA ([facility]) brimonidine tartrate 0.2 % soln AUGUSTIN ([facility]) baclofen 10 mg tabs AUGUSTIN ([facility]) Amoxicillin 500 MG Oral Capsule AUGUSTIN ([facility]) amoxicillin 500 mg caps ATH NORMA ([facility]) albuterol sulfate hfa 108 mcg/act aers AUGUSTIN ([facility]) gabapentin 800 mg tabs ATHE NA ([facility]) ibuprofen 800 mg tabs ATHEN A ([facility]) gabapentin 800 mg tabs ATHE NA ([facility]) fluticasone propionate 50 mcg/act susp AUGUSTIN ([facility]) fluconazole 150 mg tabs ATH NORMA ([facility]) Carisoprodol 350 MG Oral Tablet AUGUSTIN ([facility]) brimonidine tartrate 0.2 % soln AUGUSTIN ([facility]) Baclofen 10 MG Oral Tablet A THENA ([facility]) baclofen 10 mg tabs AUGUSTIN ([facility]) Amoxicillin 500 MG Oral Capsule AUGUSTIN ([facility]) amoxicillin 500 mg caps ATH NORMA ([facility]) albuterol sulfate hfa 108 mcg/act aers AUGUSTIN ([facility]) fluticasone propionate 50 mcg/act susp [place]UG[place]IN ([facility]) fluconazole 150 mg tabs ATH NORMA ([facility]) brimonidine tartrate 0.2 % soln AUGUSTIN ([facility]) baclofen 10 mg tabs [place]UGUSTIN ([facility]) Amoxicillin 500 MG Oral Capsule AUGUSTIN ([facility]) amoxicillin 500 mg caps ATH NORMA ([facility]) albuterol sulfate hfa 108 mcg/act aers [place]UGUSTIN ([facility]) tramadol hcl 50 mg tabs ATH NORMA ([facility] tramadol hcl 50 mg tabs ATH NORMA ([facility]) Naproxen 250 MG Oral Tablet AUGUSTIN ([facility] naproxen 500 mg tabs AUGUSTIN ([facility]) methylprednisolone dose pack 4 mg tbpk AUGUSTIN ([facility]) methocarbamol 750 mg tabs A THENA ([facility]) Lidocaine Hydrochloride 30 MG/ML Topical Cream AUGUSTIN ([facility]) latanoprost 0.005 % soln AT PATRICIO ([facility]) ibuprofen 800 mg tabs ATHEN A ([facility]) gabapentin 800 mg tabs ATHE NA ([facility]) fluticasone propionate 50 mcg/act susp [place]UGUSTIN ([facility]) fluconazole 150 mg tabs ATH NORMA ([facility]) Carisoprodol 350 MG Oral Tablet AUGUSTIN ([facility]) brimonidine tartrate 0.2 % soln AUGUSTIN ([facility]) tramadol hcl 50 mg tabs ATH NORMA ([facility])
[2021-07-11 15:19] LABS: BASO # 0.1 10^3/uL (0.0-0.2); BASO % 0.4 % (0.0-1.0); EOS # 0.2 10^3/uL (0.0-0.5); HEMATOCRIT 42.3 % (36.0-47.0); LYMPH # 3.2 10^3/uL (1.5-5.0); LYMPH % 28.9 % (24.0-44.0); MEAN CORPUSCULAR HEMOGLOBIN 29.5 pg (27.0-33.0); MEAN CORPUSCULAR HGB CONC 33.1 g/dl (32.0-36.5); MEAN CORPUSCULAR VOLUME 89.1 fl (80.0-96.0); MONO # 0.8 10^3/uL (0.0-0.8); MONO % 6.9 % (2.0-8.0); NEUTROPHILS # 6.9 10^3/uL (1.5-8.5); NEUTROPHILS % 61.4 % (36.0-66.0); PLATELET COUNT, AUTOMATED 403 10^3/uL (150-450); RED BLOOD COUNT 4.75 10^6/uL (4.00-5.40); WHITE BLOOD COUNT 11.2 10^3/uL (4.0-10.0)
--- NOTE | 2021-07-11 15:19 | REP ---
INDICATION: DYSPNEA/COUGH COMPARISON: Chest x-ray report dated 06/17/2015 TECHNIQUE: Portable AP view of the chest FINDINGS: The mediastinum and cardiac silhouette are within normal limits for portable technique. The lung nicole are clear without acute consolidation, effusion, or pneumothorax. Skeletal structures are intact. IMPRESSION: No acute cardiopulmonary process appreciated. <Electronically signed by Donald Brewster > 07/11/21 0961
[2021-07-11] MEDS ORDERED: HEPARIN DRIP 25,000 UNITS in IV 1 EA IV SCH (15:20)
[2021-07-11] MEDS ORDERED: HEPARIN SOD (PORCINE) 5000UNITS/ML 1ML VIAL/SYRINGE IV ONE (15:20)
[2021-07-11] MEDS ORDERED: TENECTEPLASE 50 MG KIT (TNKase) (J3101 PER 1MG) IV ONE (15:20)
[2021-07-11] MEDS ORDERED: NITROGLYCERIN/D5W 100MCG/ML 25 MG in IV 1 EA IV SCH (15:20)
[2021-07-11] MEDS ORDERED: NITROGLYCERIN IN D5W 25MG/250ML (100MCG/ML) As Ordered ONE (15:27)
[2021-07-11] MEDS ORDERED: CLOPIDOGREL 300 MG TAB (PLAVIX) PO STA (15:36)
[2021-07-11] MEDS ORDERED: ASPIRIN 81 MG CHEW TABLET PO ONE (15:40)
[2021-07-11] MEDS ORDERED: BACL10TA2 PO (15:55)
[2021-07-11] MEDS ORDERED: ACETAMINOPHEN 500 MG TAB PO ONE (15:55)
[2021-07-11 15:57] LABS: PROTHROMBIN TIME 13.6 SECONDS (12.7-14.5)
[2021-07-11 15:58] LABS: PARTIAL THROMBOPLASTIN TIME 32.7 SECONDS (25.9-37.0)
[2021-07-11 16:05] LABS: ALBUMIN 4.2 GM/DL (3.2-5.2); ALT/SGPT 40 U/L (12-78); BILIRUBIN,DIRECT < 0.1 MG/DL (0.0-0.2); BILIRUBIN,TOTAL 0.6 MG/DL (0.2-1.0); BLOOD UREA NITROGEN 16 MG/DL (7-18); CALCIUM LEVEL 9.5 MG/DL (8.5-10.1); CARBON DIOXIDE LEVEL 22 MEQ/L (21-32); CHLORIDE LEVEL 107 MEQ/L (98-107); CK-MB VALUE MASS 6.7 NG/ML (<3.6); CPK CREATINE PHOSPHOKINASE 186 U/L (26-192); CREATININE FOR GFR 0.86 MG/DL (0.55-1.30); GLOMERULAR FILTRATION RATE > 60.0 (>51); GLUCOSE, FASTING 117 MG/DL (70-100); NT-PRO BNP 713 PG/ML (<125); POTASSIUM SERUM 4.8 MEQ/L (3.5-5.1); SODIUM LEVEL 138 MEQ/L (136-145); TOTAL PROTEIN 8.6 GM/DL (6.4-8.2); TROPONIN I 2.75 NG/ML (< 0.10)
[2021-07-11 16:32] VITALS: BP 153/75
--- OUTSIDE RECORDS SUMMARY | 2021-07-11 16:58 | CCD ---
Author Author [facility] Organization [facility] Address Unknown Phone Unavailable Care Team Providers Care Java Manager Name Role Phone Ginger Iniguez Unavailable Unavailable [...] Unavailable Geetha, Lor MD Unavailable Unavailable Geetha, Olr MD Unavailable Unavailable Geetha, Lor MD Unavailable [...] Unavailable Unavailable BolHector farfan MD Unavailable Unavailable BoleHctor farfan MD Unavailable Unavailable BolHector farfan MD [...] farfan MD Unavailable Unavailable Jumalon, M Jeanette SURFBOARD DESIGNER Unavailable Unavailable Jumalon, M Jeanette SURFBOARD DESIGNER Unavailable Unavailable Jumalon, M Jeanette SURFBOARD DESIGNER Unavailable Unavailable Jumalon, M Jeanette SURFBOARD DESIGNER Unavailable Unavailable Jumalon, M Jeanette SURFBOARD DESIGNER Unavailable Unavailable Jumalon, M Jeanette SURFBOARD DESIGNER Unavailable Unavailable Jumalon, M Jeanette SURFBOARD DESIGNER Unavailable Unavailable Jumalon, M Jeanette SURFBOARD DESIGNER Unavailable Unavailable Jumalon, M Jeanette SURFBOARD DESIGNER Unavailable Unavailable Jumalon, M Jeanette SURFBOARD DESIGNER Unavailable Unavailable Jumalon, M Jeanette SURFBOARD DESIGNER Unavailable Unavailable Jumalon, M Jeanette SURFBOARD DESIGNER Unavailable Unavailable Jumalon, M Jeanette SURFBOARD DESIGNER Unavailable Unavailable Jumalon, M Jeanette SURFBOARD DESIGNER Unavailable Unavailable Jumalon, M Jeanette SURFBOARD DESIGNER Unavailable Unavailable Jumalon, M Jeanette SURFBOARD DESIGNER Unavailable Unavailable Jumalon, M Jeanette SURFBOARD DESIGNER Unavailable Unavailable Jumalon, M Jeanette SURFBOARD DESIGNER Unavailable Unavailable Jumalon, M Jeanette SURFBOARD DESIGNER Unavailable Unavailable Jumalon, M Jeanette SURFBOARD DESIGNER Unavailable Unavailable Jumalon, M Jeanette SURFBOARD DESIGNER Unavailable Unavailable Jumalon, M Jeanette SURFBOARD DESIGNER Unavailable Unavailable Jumalon, M Jeanette SURFBOARD DESIGNER Unavailable Unavailable Jumalon, M Jeanette SURFBOARD DESIGNER Unavailable Unavailable Jumalon, M Jeanette SURFBOARD DESIGNER Unavailable Unavailable Jumalon, M Jeanette SURFBOARD DESIGNER Unavailable Unavailable Jumalon, M Jeanette SURFBOARD DESIGNER Unavailable Unavailable Jumalon, M Jeanette SURFBOARD DESIGNER Unavailable Unavailable Jumalon, M Jeanette SURFBOARD DESIGNER Unavailable Unavailable Jumalon, M Jeanette SURFBOARD DESIGNER Unavailable Unavailable Hawkins, Donald Victoria Unavailable Unavailable Ahwkins, Donald Victoria Unavailable Unavailable Hawkins, Donald Victoria Unavailable Unavailable Hawkins, Donald Victoria Unavailable Unavailable Hawkins, Donald Victoria Unavailable Unavailable Hawkins, Donald Victoria Unavailable Unavailable Hawkins, Donald Victoria Unavailable Unavailable Hawkins, Donald Victoria Unavailable Unavailable Hawkins, Donald Victoria Unavailable Unavailable Hawkins, Donald Victoria Unavailable Unavailable Hawkins, Donald Victoria Unavailable Unavailable Hawkins, Donald Victoria Unavailable Unavailable Hawkins, Donald Victoria Unavailable Unavailable Re-disclosure Warning The records [...] is protected by Article 27-F of the [facility] Public Health law. If you continue you may have access to information: Regarding HIV / AIDS; Provided by facilities licensed or operated by the [facility] Office of Mental Health; or Provided by the [facility] Office for People With Developmental Disabilities. If such information is present, then the following [facility] mandated warning applies: This information has [...] law may result in a fine or penitentiary sentence or both. A general authorization for the release of medical or other information is NOT sufficient authorization for further disc losure. Family History Family Member Name Family Member Gender Family Member Status Date o f Status Description Data Source(s) Unknown Unknown Problem MEDENT ([facility]) Unknown Male Problem MEDENT ([facility] Unknown Unknown Problem MEDENT ([facility], ) Unknown Unknown Problem MEDENT ([facility], ) dx age 68 father Encounters Encounter Providers Location Date Indications Data Source(s ) Jeanette Gross ELECTRICAL ELECTRONICS TECHNICIAN: [address] [facility] [address], [place] [address], Ph. Attender: Jeanette DÍAZ [facility] Office 06/15/2021 12:00:00 AM EDT ATHE NA ([facility]) Kj Rodriguez MD: [address] [facility] [address], [place] [address], Ph. Attender: Kj Rodriguez MD [facility] Office 05/14/2021 12:00:00 AM EDT AUGUSTIN ([facility]) Kj Rodriguez MD: [address], [place] [address], Ph. Attender: Kj Rodriguez [place] - [facility] 05/14/2021 12:00:00 AM EDT AUGUSTIN ([facility]) Kj Rodriguez MD: [address], [place] [address], Ph. [phone] Attender: Kj Rodriguez MD [place] - [facility] 05/11/2021 12:00:00 AM EDT AUGUSTIN ([facility]) Kj Rodriguez MD: [address], [place] [address], Ph. [phone] Attender: Kj Rodriguez MD [place] - [facility] 05/11/2021 12:00:00 AM EDT AUGUSTIN ([facility]) Kj Rodriguez MD: [address], [place] [address], Ph. [phone] Attender: Kj Rodriguez MD [place] - [facility] 05/11/2021 12:00:00 AM EDT AUGUSTIN ([facility]) Jeanette Gross, ELECTRICAL ELECTRONICS TECHNICIAN: [address], [place] [address], Ph. Attender: Jeanette Gross [facility] - [facility] 05/07/2021 12:00:00 AM EDT LYSSA DIGGS ([facility]) Jeanette Gross, ELECTRICAL ELECTRONICS TECHNICIAN: [address], [place] [address], Ph. Attender: Jeanette Gross [facility] - [facility] 05/07/2021 12:00:00 AM EDT ATHE NA ([facility]) Jeanette Gross, ELECTRICAL ELECTRONICS TECHNICIAN: [address], [place] [address], Ph. Attender: Jeanette Gross [facility] - [facility] 05/07/2021 12:00:00 AM EDT ATHSheri DIGGS ([facility]) Jeanette Gross, ELECTRICAL ELECTRONICS TECHNICIAN: [address], [place] [address], Ph. Attender: Jeanette Gross [facility] - [facility] 05/07/2021 12:00:00 AM EDT ATHSheri DIGGS ([facility]) Outpatient [address] [facility] [place] [address] 04/20/2021 12:00:00 AM EDT [facility] ([facility]) Jeanette Gross, ELECTRICAL ELECTRONICS TECHNICIAN: [address], [place] [address], Ph. Attender: Jeanette Gross [facility] - [facility] 03/18/2021 12:00:00 AM EDT ATHSheri DIGGS ([facility]) Jeanette Gauthier Sugeyadam, ELECTRICAL ELECTRONICS TECHNICIAN: [address], [place] [address], Ph. Attender: Jeanette Eidvasile [facility] - [facility] 03/18/2021 12:00:00 AM EDT ATHSheri DIGGS ([facility]) Jeanette Gross, ELECTRICAL ELECTRONICS TECHNICIAN: [address], [place] [address], Ph. Attender: Jeanette Ginny [facility] - [facility] 03/18/2021 12:00:00 AM EDT ATHSheri DIGGS ([facility]) Jeanette Gross, ELECTRICAL ELECTRONICS TECHNICIAN: [address], [address], [place] [address], Ph. Attender: Jeanette Gross [facility] - [facility] 03/18/2021 12:00:00 AM EDT ATHE NA ([facility]) Jeanette Gross, ELECTRICAL ELECTRONICS TECHNICIAN: [address], [address], [place] [address], Ph. Attender: Jeanette Gross [facility] - [facility] 03/18/2021 12:00:00 AM EDT ATHE NA ([facility]) Kj Rodriguez MD: [address], [address], [place] [address], Ph. Attender: Kj Rodriguez MD [place] - [facility] 03/02/2021 12:00:00 AM EDT AUGUSTIN ([facility]) Kj Rodriguez MD: [address]98 [address], [address], [place] [address], Ph. Attender: Kj Rodriguez MD [place] - [facility] 03/02/2021 12:00:00 AM EDT AUGUSTIN ([facility]) Kj Rodriguez MD: [address]35 [address], [address], [place] [address], Ph. Attender: Kj Rodriguez MD [place] - [facility] 03/02/2021 12:00:00 AM EDT AUGUSTIN ([facility]) Kj Rodriguez MD: [address]08 [address], [address], [place] [address], Ph. Attender: Kj Rodriguez MD [place] - [facility] 03/02/2021 12:00:00 AM EDT AUGUSTIN ([facility]) Kj Rodriguez MD: [address]375 [address], [address], [place] [address], Ph. Attender: Kj Rodriguez MD [place] - [facility] 03/02/2021 12:00:00 AM EDT AUGUSTIN ([facility]) Kj Rodriguez MD: [address]56 [address], [address], [place] [address], Ph. Attender: Kj Rodriguez MD [place] - [facility] 03/02/2021 12:00:00 AM EDT AUGUSTIN ([facility]) Kj Rodriguez MD: [address]000 [address], [address], [place] [address], Ph. Attender: Kj SHEEHAN - [facility] 02/19/2021 12:00:00 AM EDT AUGUSTIN ([facility]) Kj Rodriguez MD: [address], [address], [place] [address], Ph. Attender: Kj SHEEHAN - [facility] 02/19/2021 12:00:00 AM EDT AUGUSTIN ([facility]) Kj Rodriguez MD: [address]229 [address], [address], [place] [address], Ph. Attender: Kj Rodriguez MD [place] - [facility] 02/19/2021 12:00:00 AM EDT AUGUSTIN ([facility]) Kj Rodriguez MD: [address], [address], [place] [address], Ph. Attender: Kj Rodriguez MD [place] - [facility] 02/19/2021 12:00:00 AM EDT AUGUSTIN ([facility]) Kj Rodriguez MD: [address]842 [address], [address], [place] [address], Ph. Attender: Kj Rodriguez MD [place] - [facility] 02/19/2021 12:00:00 AM EDT AUGUSTIN ([facility]) Kj Rodriguez MD: [address]68 [address], [address], [place] [address], Ph. Attender: Kj Rodriguez MD [place] - [facility] 02/19/2021 12:00:00 AM EDT AUGUSTIN ([facility]) Kj Rodriguez MD: [address]70 [address], [address], [place] [address], Ph. Attender: Kj Rodriguez MD [place] - [facility] 02/19/2021 12:00:00 AM EDT AUGUSTIN ([facility]) Kj Rodriguez MD: [address]998 [address], [address], [place] [address], Ph. [phone] Attender: Kj SHEEHAN - [facility] 02/16/2021 12:00:00 AM EDT AUGUSTIN ([facility]) Kj Rodriguez MD: [address]85 [address], [address], [place] [address], Ph. [phone] Attender: Kj Rodriguez MD [place] - [facility] 02/16/2021 12:00:00 AM EDT AUGUSTIN ([facility]) Kj Rodriguez MD: [address], [place] [address], Ph. [phone] Attender: Kj SHEEHAN - [facility] 02/16/2021 12:00:00 AM EDT AUGUSTIN ([facility]) Kj Rodriguez MD: [address], [place] [address], Ph. [phone] Attender: Kj Rodriguez MD [place] - [facility] 02/16/2021 12:00:00 AM EDT AUGUSTIN ([facility]) Kj Rodriguez MD: [address]93 [address], [place] [address], Ph. [phone] Attender: Kj Rodriguez MD [place] - [facility] 02/16/2021 12:00:00 AM EDT AUGUSTIN ([facility]) Kj Rodriguez MD: [address]47 [address], [facility] [place] [address], Ph. [phone] Attender: Kj Rodriguez MD [place] - [facility] 02/16/2021 12:00:00 AM EDT AUGUSTIN ([facility]) Kj Rodriguez MD: [address]293 [address], [place] [address], Ph. [phone] Attender: Kj Rodriguez MD [place] - [facility] 02/16/2021 12:00:00 AM EDT AUGUSTIN ([facility]) Kj Rodriguez MD: [address]77 [address], [facility] [place] [facility] [place] [address], Ph. [phone] Attender: Kj Rodriguez MD [place] - [facility] 02/16/2021 12:00:00 AM EDT AUGUSTIN ([facility]) Jeanette Gross, ELECTRICAL ELECTRONICS TECHNICIAN: [address], [address], [place] [address], Ph. Attender: [facility] 02/11/2021 12:00:00 AM EDT ATHE DONTAE ([facility]) Jeanette Gross, ELECTRICAL ELECTRONICS TECHNICIAN: [address], [address], [place] [address], Ph. Attender: Jeanette Gross [facility] - [facility] 02/11/2021 12:00:00 AM EDT ATHE NA ([facility]) Jeanette Gross, ELECTRICAL ELECTRONICS TECHNICIAN: [address], [address], [place] [address], Ph. Attender: Jeanette Gross [facility] - [facility] 02/11/2021 12:00:00 AM EDT ATHE NA ([facility]) Jeanette Gross, ELECTRICAL ELECTRONICS TECHNICIAN: [address], [place] [address], Ph. Attender: Jeanette Gross [facility] - [facility] 02/11/2021 12:00:00 AM EDT ATHE NA ([facility]) Jeanette Gross, ELECTRICAL ELECTRONICS TECHNICIAN: [address], [place] [address], Ph. Attender: Jeanette Gross [facility] - [facility] 02/11/2021 12:00:00 AM EDT ATHE NA ([facility]) Jeanette Gross, ELECTRICAL ELECTRONICS TECHNICIAN: [address], [address], [place] [address], Ph. Attender: Jeanette Gross [facility] - [facility] 02/11/2021 12:00:00 AM EDT ATHE NA ([facility]) Jeanette Gross, ELECTRICAL ELECTRONICS TECHNICIAN: [address], [address], [place] [address], Ph. Attender: Jeanette Gross [facility] - [facility] 02/11/2021 12:00:00 AM EDT ATHSheri NA ([facility]) Jeanette Gross, ELECTRICAL ELECTRONICS TECHNICIAN: [address], [place] [address], Ph. Attender: Jeanette Gross [facility] - [facility] 02/11/2021 12:00:00 AM EDT ATHSheri NA ([facility]) Jeanette Gross, ELECTRICAL ELECTRONICS TECHNICIAN: [address], [place] [address], Ph. Attender: Jeanette Gross [facility] - [facility] 02/11/2021 12:00:00 AM EDT LYSSA DIGSG ([facility]) Victoria Hawkins [facility]: [address] [place] [address], Ph. Attender: Victoria SHEEHAN - [facility] Medical 02/03/2021 12:00:00 AM EDT AUGUSTIN ([facility]) Kj Rodriguez MD: [address]84 [address], [place] [address], Ph. Attender: Kj Rodriguez MD [place] - [facility] 01/14/2021 12:00:00 AM EDT AUGUSTIN ([facility]) Kj Rodriguez MD: [address]50 [address], [place] [address], Ph. Attender: Kj Rodriguez MD [place] - [facility] 01/14/2021 12:00:00 AM EDT AUGUSTIN ([facility]) Kj Rodriguez MD: 08651 [address], [place] [address], Ph. Attender: Kj Rodriguez MD [place] - [facility] 01/14/2021 12:00:00 AM EDT AUGUSTIN ([facility]) Kj Rodriguez MD: [address]78 [address], [address], [place] [address], Ph. Attender: Kj Rodriguez MD [place] - [facility] 01/14/2021 12:00:00 AM EDT AUGUSTIN ([facility]) Kj Rodriguez MD: [address]1063 [address], [address], [place] [address], Ph. Attender: Kj Rodriguez MD [place] - [facility] 01/14/2021 12:00:00 AM EDT AUGUSTIN ([facility]) Kj Rodriguez MD: 56459 [address], [address], [place] [address], Ph. Attender: Kj Rodriguez MD [place] - [facility] 01/14/2021 12:00:00 AM EDT AUGUSTIN ([facility]) Kj Rodriguez MD: 67169 [address], [address], [place] [address], Ph. Attender: Kj Rodriguez MD [place] - [facility] 01/14/2021 12:00:00 AM EDT AUGUSTIN ([facility]) Kj Rodriguez MD: 41325 [address], [address], [place] [address], Ph. Attender: Kj Rodriguez MD [place] - [facility] 01/14/2021 12:00:00 AM EDT AUGUSTIN ([facility]) Kj Rodriguez MD: 25021 [address], [address], [place] [address], Ph. Attender: Kj Rodriguez MD [place] - [facility] 01/14/2021 12:00:00 AM EDT AUGUSTIN ([facility]) Kj Rodriguez MD: 99608 [address], [address], [place] [address], Ph. Attender: Kj Rodriguez MD [place] - [facility] 01/14/2021 12:00:00 AM EDT AUGUSTIN ([facility]) Kj Rodriguez MD: 59923 [address], [address], [place] [address], Ph. [phone] Attender: Kj Rodriguez MD [place] - [facility] 01/09/2021 12:00:00 AM EDT AUGUSTIN ([facility]) Kj Rodriguez MD: [address]7040 [address], [address], [place] [address], Ph. [phone] Attender: Kj Rodriguez MD [place] - [facility] 01/09/2021 12:00:00 AM EDT AUGUSTIN ([facility]) Kj Rodriguez MD: 80318 [address], [address], [place] [address], Ph. [phone] Attender: Kj Rodriguez MD [place] - [facility] 01/09/2021 12:00:00 AM EDT AUGUSTIN ([facility]) Kj Rodriguez MD: 83189 [address], [address], [place] [address], Ph. [phone] Attender: Kj SHEEHAN - [facility] 01/09/2021 12:00:00 AM EDT AUGUSTIN ([facility]) Kj Rodriguez MD: 71195 [address], [address], [place] [address], Ph. [phone] Attender: Kj Rodriguez MD [place] - [facility] 01/09/2021 12:00:00 AM EDT AUGUSTIN ([facility]) Kj Rodriguez MD: [address]8549 [address], [address], [place] [address], Ph. [phone] Attender: Kj Rodriguez MD [place] - [facility] 01/09/2021 12:00:00 AM EDT AUGUSTIN ([facility]) Kj Rodriguez MD: 55088 [address], [address], [place] [address], Ph. [phone] Attender: Kj Rodriguez MD [place] - [facility] 01/09/2021 12:00:00 AM EDT AUGUSTIN ([facility]) Kj Rodriguez MD: 46512 [address], [address], [place] [address], Ph. [phone] Attender: Kj Rodriguez MD [place] - [facility] 01/09/2021 12:00:00 AM EDT AUGUSTIN ([facility]) Kj Rodriguez MD: 83432 [address], [address], [place] [address], Ph. [phone] Attender: Kj Rodriguez MD [place] - [facility] 01/09/2021 12:00:00 AM EDT AUGUSTIN ([facility]) Kj Rodriguez MD: [address]32 [address], [address], [place] [address], Ph. [phone] Attender: Kj SHEEHAN - [facility] 01/09/2021 12:00:00 AM EDT AUGUSTIN ([facility]) Kj Rodriguez MD: 70596 [address], [address], [place] [address], Ph. [phone] Attender: Kj SHEEHAN - [facility] 01/09/2021 12:00:00 AM EDT AUGUSTIN ([facility]) Unknown [address] [facility] [address] 01/06/2021 12:00:00 AM EDT eCW1 ([facility]) [facility]: [address] [place], [place] [address], Ph. Attender: Victoria SHEEHAN [facility] Medical 01/06/2021 12:00:00 AM EDT AUGUSTIN ([facility]) [facility]: [address] [place], [place] [address], Ph. Attender: Victoria SHEEHAN [facility] Medical 01/06/2021 12:00:00 AM EDT AUGUSTIN ([facility]) Unknown [address] [facility] [address] 12/31/2020 12:00:00 AM EDT eCW1 ([facility]) Unknown [address] [facility] [address] 12/25/2020 12:00:00 AM EDT eCW1 ([facility]) Jeanette Gross, ELECTRICAL ELECTRONICS TECHNICIAN: [address], [place] [address], Ph. Attender: Jeanette Gross [facility] - [facility] - [facility] Office 12/24/2020 12:00:00 AM EDT LYSSA DIGGS ([facility]) Jeanette Gross, ELECTRICAL ELECTRONICS TECHNICIAN: [address], [place] [address], Ph. Attender: Jeanette Gross [facility] - [facility] - Main Office 12/24/2020 12:00:00 AM EDT ATHSheri DIGGS ([facility]) Jeanette Gross, ELECTRICAL ELECTRONICS TECHNICIAN: [address], [address], [place] [address], Ph. Attender: Jeanette Gross [facility] - [facility] 12/24/2020 12:00:00 AM EDT ATHE NA ([facility]) Jeanette Gross, ELECTRICAL ELECTRONICS TECHNICIAN: [address], [address], [place] [address], Ph. Attender: Jeanette Gross [facility] - [facility] 12/24/2020 12:00:00 AM EDT ATHE NA ([facility]) Jeanette Gross, ELECTRICAL ELECTRONICS TECHNICIAN: [address], [place] [address], Ph. Attender: Jeanette Gross [facility] - [facility] 12/24/2020 12:00:00 AM EDT ATHE NA ([facility]) Jeanette Gross, ELECTRICAL ELECTRONICS TECHNICIAN: [address], [place] [address], Ph. Attender: Jeanette Gross [facility] - [facility] 12/24/2020 12:00:00 AM EDT ATHE NA ([facility]) Jeanette Gross, ELECTRICAL ELECTRONICS TECHNICIAN: [address], [address], [place] [address], Ph. Attender: Jeanette Gross [facility] - [facility] 12/24/2020 12:00:00 AM EDT ATHE NA ([facility]) Jeanette Gross, ELECTRICAL ELECTRONICS TECHNICIAN: [address], [place] [address], Ph. Attender: Jeanette Gross [facility] - [facility] 12/24/2020 12:00:00 AM EDT ATHE NA ([facility]) Jeanette Gross, ELECTRICAL ELECTRONICS TECHNICIAN: [address], [place] [address], Ph. Attender: Jeanette Gross [facility] - [facility] 12/24/2020 12:00:00 AM EDT ATHE NA ([facility]) Jeanette Gross, ELECTRICAL ELECTRONICS TECHNICIAN: [address], [place] [address], Ph. Attender: Jeanette Gross [facility] - [facility] 12/24/2020 12:00:00 AM EDT ATHE NA ([facility]) Jeanette Gross, ELECTRICAL ELECTRONICS TECHNICIAN: [address], [place] [address], Ph. Attender: Jeanette Gross [facility] - [facility] 12/24/2020 12:00:00 AM EDT ATHE NA ([facility]) Jeanette Gross, ELECTRICAL ELECTRONICS TECHNICIAN: [address], [place] [address], Ph. Attender: Jeanette Gross [facility] - [facility] 12/24/2020 12:00:00 AM EDT ATHE NA ([facility]) Kj Rodriguez MD: [address], [place] [address], Ph. Attender: Kj Rodriguez MD [place] - [facility] 12/03/2020 12:00:00 AM EST AUGUSTIN ([facility]) Kj Rodriguez MD: [address]93 [address], [place] [address], Ph. Attender: Kj Rodriguez MD [place] - [facility] 12/03/2020 12:00:00 AM EST AUGUSTIN ([facility]) Kj Rodriguez MD: 36692 [address], [address], [place] [address], Ph. Attender: Kj Rodriguez MD [place] - [facility] 12/03/2020 12:00:00 AM EST AUGUSTIN ([facility]) Kj Rodriguez MD: [address]017 [address], [address], [place] [address], Ph. Attender: Kj Rodriguez MD [place] - [facility] 12/03/2020 12:00:00 AM EST AUGUSTIN ([facility]) Kj Rodriguez MD: [address]809 [address], [address], [place] [address], Ph. Attender: Kj Rodriguez MD [place] - [facility] 12/03/2020 12:00:00 AM EST AUGUSTIN ([facility]) Kj Rodriguez MD: 5[address]22 [address], [place] [address], Ph. Attender: Kj Rodriguez MD [place] - [facility] 12/03/2020 12:00:00 AM EST AUGUSTIN ([facility]) Kj Rodriguez MD: [address]244 [address], [address], [place] [address], Ph. Attender: Kj Rodriguez MD [place] - [facility] 12/03/2020 12:00:00 AM EST AUGUSTIN ([facility]) Kj Rodriguez MD: [address]30 [address], [address], [place] [address], Ph. Attender: Kj Rodriguez MD [place] - [facility] 12/03/2020 12:00:00 AM EST AUGUSTIN ([facility]) Kj Rodriguez MD: [address]682 [address], [address], [place] [address], Ph. Attender: Kj Rodriguez MD [place] - [facility] 12/03/2020 12:00:00 AM EST AUGUSTIN ([facility]) Kj Rodriguez MD: 07443 [address], [address], [place] [address], Ph. Attender: Kj Rodriguez MD [place] - [facility] 12/03/2020 12:00:00 AM EST AUGUSTIN ([facility]) Kj Rodriguez MD: [address]86 [address], [address], [place] [address], Ph. Attender: Kj Rodriguez MD [place] - [facility] 12/03/2020 12:00:00 AM EST AUGUSTIN ([facility]) Kj Rodriguez MD: [address]7542 [address], [address], [place] [address], Ph. Attender: Kj Rodriguez MD [place] - [facility] 12/03/2020 12:00:00 AM EST AUGUSTIN ([facility]) Kj Rodriguez MD: [address]014 [address], [address], [place] [address], Ph. Attender: Kj Rodriguez MD [place] - [facility] 12/03/2020 12:00:00 AM EST AUGUSTIN ([facility]) Kj Rodriguez MD: [address]806 [address], [address], [place] [address], Ph. [phone] Attender: Kj Rodriguez MD [place] - [facility] 12/01/2020 12:00:00 AM EST AUGUSTIN ([facility]) Kj Rodriguez MD: [address]489 [address], [address], [place] [address], Ph. [phone] Attender: Kj Rodriguez MD [place] - [facility] 12/01/2020 12:00:00 AM EST AUGUSTIN ([facility]) Kj Rodriguez MD: [address]38 [address], [address], [place] [address], Ph. [phone] Attender: Kj Rodriguez MD [place] - [facility] 12/01/2020 12:00:00 AM EST AUGUSTIN ([facility]) Kj Rodriguez MD: [address]11 [address], [address], [place] [address], Ph. [phone] Attender: Kj Rodriguez MD [place] - [facility] 12/01/2020 12:00:00 AM EST AUGUSTIN ([facility]) Kj Rodriguez MD: 16498 [address], [address], [place] [address], Ph. [phone] Attender: Kj Rodriguez MD [place] - [facility] 12/01/2020 12:00:00 AM EST AUGUSTIN ([facility]) Kj Rodriguez MD: 76373 [address], [address], [place] [address], Ph. [phone] Attender: Kj Rodriguez MD [place] - [facility] 12/01/2020 12:00:00 AM EST AUGUSTIN ([facility]) Kj Rodriguez MD: [address]31 [address], [address], [place] [address], Ph. [phone] Attender: Kj Rodriguez MD [place] - [facility] 12/01/2020 12:00:00 AM EST AUGUSTIN ([facility]) Kj Rodriguez MD: [address]340 [address], [place] [address], Ph. [phone] Attender: Kj Rodriguez MD [place] - [facility] 12/01/2020 12:00:00 AM EST AUGUSTIN ([facility]) Kj Rodriguez MD: [address]642 [address], [address], [place] [address], Ph. [phone] Attender: Kj Rodriguez MD [place] - [facility] 12/01/2020 12:00:00 AM EST AUGUSTIN ([facility]) Kj Rodriguez MD: [address]21 [address], [place] [address], Ph. [phone] Attender: Kj Rodriguez MD [place] - [facility] 12/01/2020 12:00:00 AM EST AUGUSTIN ([facility]) Kj Rodriguez MD: [address]5733 [address], [place] [address], Ph. [phone] Attender: Kj Rodriguez MD [place] - [facility] 12/01/2020 12:00:00 AM EST AUGUSTIN ([facility]) Kj Rodriguez MD: 09947 [address], [place] [address], Ph. [phone] Attender: Kj Rodriguez MD [place] - [facility] 12/01/2020 12:00:00 AM EST AUGUSTIN ([facility]) Kj Rodriguez MD: 89114 [address], [place] [address], Ph. [phone] Attender: Kj Rodriguez MD [place] - [facility] 12/01/2020 12:00:00 AM EST AUGUSTIN ([facility]) Kj Rodriguez MD: 42254 [address], [address], [place] [address], Ph. [phone] Attender: Kj Rodriguez MD [place] - [facility] 12/01/2020 12:00:00 AM EST AUGUSTIN ([facility]) Kj Rodriguez MD: 46061 [address], [address], [place] [address], Ph. Attender: Kj Rodriguez MD [place] - [facility] 11/26/2020 12:00:00 AM EST AUGUSTIN ([facility]) Kj Rodriguez MD: 89250 [address], [address], [place] [address], Ph. Attender: Kj Rodriguez MD [place] - [facility] 11/26/2020 12:00:00 AM EST AUGUSTIN ([facility]) Kj Rodriguez MD: 30907 [address], [address], [place] [address], Ph. Attender: Kj Rodriguez MD [place] - [facility] 11/26/2020 12:00:00 AM EST AUGUSTIN ([facility]) Kj Rodriguez MD: 48903 [address], [place] [address], Ph. Attender: Kj Rodriguez MD [place] - [facility] 11/26/2020 12:00:00 AM EST AUGUSTIN ([facility]) Kj Rodriguez MD: 94334 [address], [place] [address], Ph. Attender: Kj Rodriguez MD [place] - [facility] 11/26/2020 12:00:00 AM EST AUGUSTIN ([facility]) Kj Rodriguez MD: 82402 [address], [address], [place] [address], Ph. Attender: Kj Rodriguez MD [place] - [facility] 11/26/2020 12:00:00 AM EST AUGUSTIN ([facility]) Kj Rodriguez MD: 59417 [address], [address], [place] [address], Ph. Attender: Kj Rodriguez MD [place] - [facility] 11/26/2020 12:00:00 AM EST AUGUSTIN ([facility]) Kj Rodriguez MD: 79050 [address], [address], [place] [address], Ph. Attender: Kj Rodriguez MD [place] - [facility] 11/26/2020 12:00:00 AM EST AUGUSTIN ([facility]) Kj Rodriguez MD: 15326 [address], [place] [address], Ph. Attender: Kj Rodriguez MD [place] - [facility] 11/26/2020 12:00:00 AM EST AUGUSTIN ([facility]) Kj Rodriguez MD: 48437 [address], [place] [address], Ph. Attender: Kj Rodriguez MD [place] - [facility] 11/26/2020 12:00:00 AM EST AUGUSTIN ([facility]) Kj Rodriguez MD: 09319 [address], [place] [address], Ph. Attender: Kj SHEEHAN - [facility] 11/26/2020 12:00:00 AM EST AUGUSTIN ([facility]) Kj Rodriguez MD: 55933 [address], [address], [place] [address], Ph. Attender: Kj Rodriguez MD [place] - [facility] 11/26/2020 12:00:00 AM EST AUGUSTIN ([facility]) Kj Rodriguez MD: 32493 [address], [address], [place] [address], Ph. Attender: jK Rodriguez MD [place] - [facility] 11/26/2020 12:00:00 AM EST AUGUSTIN ([facility]) Kj Rodriguez MD: 61632 [address], [address], [place] [address], Ph. Attender: Kj Rodriguez MD [place] - [facility] 11/26/2020 12:00:00 AM EST AUGUSTIN ([facility]) Kj Rodriguez MD: 85944 [address], [address], [place] [address], Ph. Attender: Kj Rodriguez MD [place] - [facility] 11/26/2020 12:00:00 AM EST AUGUSTIN ([facility]) Kj Rodriguez MD: 63940 [address], [place] [address], Ph. [phone] Attender: Kj Rodriguez MD [place] - [facility] 11/21/2020 12:00:00 AM EST AUGUSTIN ([facility]) Kj Rodriguez MD: 11463 [address], [place] [address], Ph. [phone] Attender: Kj Rodriguez MD [place] - [facility] 11/21/2020 12:00:00 AM EST AUGUSTIN ([facility]) Kj Rodriguez MD: 21426 [address], [address], [place] [address], Ph. [phone] Attender: Kj Rodriguez MD [place] - [facility] 11/21/2020 12:00:00 AM EST AUGUSTIN ([facility]) Kj Rodriguez MD: 72190 [address], [address], [place] [address], Ph. [phone] Attender: Kj Rodriguez MD [place] - [facility] 11/21/2020 12:00:00 AM EST AUGUSTIN ([facility]) Kj Rodriguez MD: 48407 [address], [address], [place] [address], Ph. [phone] Attender: Kj SHEEHAN - [facility] 11/21/2020 12:00:00 AM EST AUGUSTIN ([facility]) Kj Rodriguez MD: 41459 [address], [address], [place] [address], Ph. [phone] Attender: Kj Rodriguez MD [place] - [facility] 11/21/2020 12:00:00 AM EST AUGUSTIN ([facility]) Kj Rodriguez MD: 54037 [address], [address], [place] [address], Ph. [phone] Attender: Kj Rodriguez MD [place] - [facility] 11/21/2020 12:00:00 AM EST AUGUSTIN ([facility]) Kj Rodriguez MD: 79979 [address], [address], [place] [address], Ph. [phone] Attender: Kj Rodriguez MD [place] - [facility] 11/21/2020 12:00:00 AM EST AUGUSTIN ([facility]) Kj Rodriguez MD: 96450 [address], [address], [place] [address], Ph. [phone] Attender: Kj Rodriguez MD [place] - [facility] 11/21/2020 12:00:00 AM EST AUGUSTIN ([facility]) Kj Rodriguez MD: 10869 [address], [place] [address], Ph. [phone] Attender: Kj Rodriguez MD [place] - [facility] 11/21/2020 12:00:00 AM EST AUGUSTIN ([facility]) Kj Rodriguez MD: 63710 [address], [place] [address], Ph. [phone] Attender: Kj SHEEHAN - [facility] 11/21/2020 12:00:00 AM EST AUGUSTIN ([facility]) Kj Rodriguez MD: 48100 [address], [place] [address], Ph. [phone] Attender: Kj SHEEHAN - [facility] 11/21/2020 12:00:00 AM EST AUGUSTIN ([facility]) Kj Rodriguez MD: 54999 [address], [place] [address], Ph. [phone] Attender: Kj Rodriguez MD [place] - [facility] 11/21/2020 12:00:00 AM EST AUGUSTIN ([facility]) Kj Rodriguez MD: 47042 [address], [place] [address], Ph. [phone] Attender: Kj Rodriguez MD [place] - [facility] 11/21/2020 12:00:00 AM EST AUGUSTIN ([facility]) Kj Rodriguez MD: 97298 [address], [place] [address], Ph. [phone] Attender: Kj SHEEHAN - [facility] 11/21/2020 12:00:00 AM EST AUGUSTIN ([facility]) Kj Rodriguez MD: 53989 [address], [address], [place] [address], Ph. [phone] Attender: Kj Rodriguez MD [place] - [facility] 11/21/2020 12:00:00 AM EST AUGUSTIN ([facility]) Kj Rodriguez MD: 21504 [address], [address], [place] [address], Ph. [phone] Attender: Kj Rodriguez MD [place] - [facility] 11/10/2020 12:00:00 AM EST AUGUSTIN ([facility]) Kj Rodriguez MD: 13614 [address], [place] [address], Ph. [phone] Attender: Kj Rodriguez MD [place] - [facility] 11/10/2020 12:00:00 AM EST AUGUSTIN ([facility]) Kj Rodriguez MD: 68329 [address], [address], [place] [address], Ph. [phone] Attender: Kj Rodriguez MD [place] - [facility] 11/10/2020 12:00:00 AM EST AUGUSTIN ([facility]) Kj Rodriguez MD: 65404 [address], [address], [place] [address], Ph. [phone] Attender: Kj Rodriguez MD [place] - [facility] 11/10/2020 12:00:00 AM EST AUGUSTIN ([facility]) Kj Rodriguez MD: 35946 [address], [place] [address], Ph. [phone] Attender: Kj Rodriguez MD [place] - [facility] 11/10/2020 12:00:00 AM EST AUGUSTIN ([facility]) Kj Rodriguez MD: 97926 [address], [address], [place] [address], Ph. [phone] Attender: Kj Rodriguez MD [place] - [facility] 11/10/2020 12:00:00 AM EST AUGUSTIN ([facility]) Kj Rodriguez MD: 09662 [address], [address], [place] [address], Ph. [phone] Attender: Kj Rodriguez MD [place] - [facility] 11/10/2020 12:00:00 AM EST AUGUSTIN ([facility]) Kj Rodriguez MD: 94064 [address], [address], [place] [address], Ph. [phone] Attender: Kj SHEEHAN - [facility] 11/10/2020 12:00:00 AM EST AUGUSTIN ([facility]) Kj Rodriguez MD: 63840 [address], [address], [place] [address], Ph. [phone] Attender: Kj SHEEHAN - [facility] 11/10/2020 12:00:00 AM EST AUGUSTIN ([facility]) Kj Rodriguez MD: 04351 [address], [address], [place] [address], Ph. [phone] Attender: Kj SHEEHAN - [facility] 11/10/2020 12:00:00 AM EST AUGUSTIN ([facility]) Kj Rodriguez MD: 34465 [address], [address], [place] [address], Ph. [phone] Attender: Kj SHEEHAN - [facility] 11/10/2020 12:00:00 AM EST AUGUSTIN ([facility]) Kj Rodriguez MD: 45696 [address], [address], [place] [address], Ph. [phone] Attender: Kj SHEEHAN - [facility] 11/10/2020 12:00:00 AM EST AUGUSTIN ([facility]) Kj Rodriguez MD: 67057 [address], [place] [address], Ph. [phone] Attender: Kj Rodriguez MD [place] - [facility] 11/10/2020 12:00:00 AM EST AUGUSTIN ([facility]) Kj Rodriguez MD: 56149 [address], [place] [address], Ph. [phone] Attender: Kj Rodriguez MD [place] - [facility] 11/10/2020 12:00:00 AM EST AUGUSTIN ([facility]) Kj Rodriguez MD: 58046 [address], [place] [address], Ph. [phone] Attender: Kj Rodriguez MD [place] - [facility] 11/10/2020 12:00:00 AM EST AUGUSTIN ([facility]) Kj Rodriguez MD: 70290 [address], [place] [address], Ph. [phone] Attender: Kj Rodriguez MD [place] - [facility] 11/10/2020 12:00:00 AM EST AUGUSTIN ([facility]) Kj Rodriguez MD: 30104 [address], [place] [address], Ph. [phone] Attender: Kj Rodriguez MD [place] - [facility] 11/10/2020 12:00:00 AM EST AUGUSTIN ([facility]) Outpatient [address] [facility] [address] 10/23/2020 12:00:00 AM EST eCW1 ([facility]) Kj Rodriguez MD: 96395 [address], [place] [address], Ph. Attender: Kj Rodriguez MD [place] - [facility] 10/20/2020 12:00:00 AM EST AUGUSTIN ([facility]) Kj Rodriguez MD: 65478 [address], [address], [place] [address], Ph. Attender: Kj Rodriguez MD [place] - [facility] 10/20/2020 12:00:00 AM EST AUGUSTIN ([facility]) Kj Rodriguez MD: 60833 [address], [address], [place] [address], Ph. Attender: Kj Rodriguez MD [place] - [facility] 10/20/2020 12:00:00 AM EST AUGUSTIN ([facility]) Kj Rodriguez MD: 12885 [address], [address], [place] [address], Ph. Attender: Kj Rodriguez MD [place] - [facility] 10/20/2020 12:00:00 AM EST AUGUSTIN ([facility]) Kj Rodriguez MD: 83544 [address], [address], [place] [address], Ph. Attender: Kj Rodriguez MD [place] - [facility] 10/20/2020 12:00:00 AM EST AUGUSTIN ([facility]) Kj Rodriguez MD: 25948 [address], [address], [place] [address], Ph. Attender: Kj Rodriguez MD [place] - [facility] 10/20/2020 12:00:00 AM EST AUGUSTIN ([facility]) Kj Rodriguez MD: 63855 [address], [address], [place] [address], Ph. Attender: Kj Rodriguez MD [place] - [facility] 10/20/2020 12:00:00 AM EST AUGUSTIN ([facility]) Kj Rodriguez MD: 31278 [address], [place] [address], Ph. Attender: Kj Rodriguez MD [place] - [facility] 10/20/2020 12:00:00 AM EST AUGUSTIN ([facility]) Kj Rodriguez MD: 76941 [address], [address], [place] [address], Ph. Attender: Kj Rodriguez MD [place] - [facility] 10/20/2020 12:00:00 AM EST AUGUSTIN ([facility]) Kj Rodriguez MD: [address], [address], [place] [address], Ph. Attender: Kj SHEEHAN - [facility] 10/20/2020 12:00:00 AM EST AUGUSTIN ([facility]) Kj Rodriguez MD: [address]37 [address], [place] [address], Ph. Attender: Kj SHEEHAN - [facility] 10/20/2020 12:00:00 AM EST AUGUSTIN ([facility]) Kj Rodriguez MD: [address]11 [address], [address], [place] [address], Ph. Attender: Kj SHEEHAN - [facility] 10/20/2020 12:00:00 AM EST AUGUSTIN ([facility]) Kj Rodriguez MD: [address]5735 [address], [address], [place] [address], Ph. Attender: Kj Rodriguez MD [place] - [facility] 10/20/2020 12:00:00 AM EST AUGUSTIN ([facility]) Kj Rodriguez MD: 30244 [address], [place] [address], Ph. Attender: Kj Rodriguez MD [place] - [facility] 10/20/2020 12:00:00 AM EST AUGUSTIN ([facility]) Kj Rodriguez MD: 53323 [address], [address], [place] [address], Ph. Attender: Kj Rodriguez MD [place] - [facility] 10/20/2020 12:00:00 AM EST AUGUSTIN ([facility]) Kj Rodriguez MD: 19137 [address], [place] [address], Ph. Attender: Kj Rodriguez MD [place] - [facility] 10/20/2020 12:00:00 AM EST AUGUSTIN ([facility]) Kj Rodriguez MD: 7[address]01 [address], [place] [address], Ph. Attender: Kj SHEEHAN - [facility] 10/20/2020 12:00:00 AM EST AUGUSTIN ([facility]) Kj Rodriguez MD: 95119 [address], [address], [place] [address], Ph. Attender: Kj SHEEHAN - [facility] 10/20/2020 12:00:00 AM EST AUGUSTIN ([facility]) Kj Rodriguez MD: [address]9090 [address], [place] [address], Ph. [phone] Attender: Kj Rodriguez MD [place] - [facility] 10/15/2020 12:00:00 AM EST AUGUSTIN ([facility]) Kj Rodriguez MD: [address]8980 [address], [place] [address], Ph. [phone] Attender: Kj Rodriguez MD [place] - [facility] 10/15/2020 12:00:00 AM EST AUGUSTIN ([facility]) Kj Rodriguez MD: 11960 [address], [address], [place] [address], Ph. [phone] Attender: Kj Rodriguez MD [place] - [facility] 10/15/2020 12:00:00 AM EST AUGUSTIN ([facility]) Kj Rodriguez MD: 53469 [address], [address], [place] [address], Ph. [phone] Attender: Kj Rodriguez MD [place] - [facility] 10/15/2020 12:00:00 AM EST AUGUSTIN ([facility]) Kj Rodriguez MD: 21116 [address], [address], [place] [address], Ph. [phone] Attender: Kj Rodriguez MD [place] - [facility] 10/15/2020 12:00:00 AM EST AUGUSTIN ([facility]) Kj Rodriguez MD: [address]2211 [address], [address], [place] [address], Ph. [phone] Attender: Kj Rodriguez MD [place] - [facility] 10/15/2020 12:00:00 AM EST AUGUSTIN ([facility]) jK Rodriguez MD: 18546 [address], [address], [place] [address], Ph. [phone] Attender: Kj Rodriguez MD [place] - [facility] 10/15/2020 12:00:00 AM EST AUGUSTIN ([facility]) Kj Rodriguez MD: 49011 [address], [place] [address], Ph. [phone] Attender: Kj Rodriguez MD [place] - [facility] 10/15/2020 12:00:00 AM EST AUGUSTIN ([facility]) Kj Rodriguez MD: 52352 [address], [address], [place] [address], Ph. [phone] Attender: Kj Rodriguez MD [place] - [facility] 10/15/2020 12:00:00 AM EST AUGUSTIN ([facility]) Kj Rodriguez MD: 05035 [address], [place] [address], Ph. [phone] Attender: Kj Rodriguez MD [place] - [facility] 10/15/2020 12:00:00 AM EST AUGUSTIN ([facility]) Kj Rodriguez MD: 27364 [address], [address], [place] [address], Ph. [phone] Attender: Kj Rodriguez MD [place] - [facility] 10/15/2020 12:00:00 AM EST AUGUSTIN ([facility]) Kj Rodriguez MD: 34039 [address], [place] [address], Ph. [phone] Attender: Kj Rodriguez MD [place] - [facility] 10/15/2020 12:00:00 AM EST AUGUSTIN ([facility]) Kj Rodriguez MD: 64753 [address], [place] [address], Ph. [phone] Attender: Kj Rodriguez MD [place] - [facility] 10/15/2020 12:00:00 AM EST AUGUSTIN ([facility]) Kj Rodriguez MD: 47472 [address], [address], [place] [address], Ph. [phone] Attender: Kj Rodriguez MD [place] - [facility] 10/15/2020 12:00:00 AM EST AUGUSTIN ([facility]) Kj Rodriguez MD: 98334 [address], [address], [place] [address], Ph. [phone] Attender: Kj Rodriguez MD [place] - [facility] 10/15/2020 12:00:00 AM EST AUGUSTIN ([facility]) Kj Rodriguez MD: 60147 [address], [facility] [place] [address], Ph. [phone] Attender: Kj Rodriguez MD [place] - [facility] 10/15/2020 12:00:00 AM EST AUGUSTIN ([facility]) Kj Rodriguez MD: [address]26 [address], [address], [place] [address], Ph. [phone] Attender: Kj Rodriguez MD [place] - [facility] 10/15/2020 12:00:00 AM EST AUGUSTIN ([facility]) Kj Rodriguez MD: [address]2447 [address], [place] [address], Ph. [phone] Attender: Kj Rodriguez MD [place] - [facility] 10/15/2020 12:00:00 AM EST AUGUSTIN ([facility]) Kj Rodriguez MD: [address]03 [address], [address], [place] [address], Ph. [phone] Attender: Kj Rodriguez MD [place] - [facility] 10/15/2020 12:00:00 AM EST AUGUSTIN ([facility]) Jeanette Gross, ELECTRICAL ELECTRONICS TECHNICIAN: [address], [address], [place] [address], Ph. Attender: Jeanette Gross [facility] - [facility] 10/07/2020 12:00:00 AM EST ATHE NA ([facility]) Jeanette Gross, ELECTRICAL ELECTRONICS TECHNICIAN: [address]3 [address], [place] [address], Ph. Attender: Jeanette Gross [facility] - [facility] 10/07/2020 12:00:00 AM EST ATHE NA ([facility]) Jeanette Gross, ELECTRICAL ELECTRONICS TECHNICIAN: [address]753 [address], [place] [address], Ph. Attender: Jeanette Gross [facility] - [facility] 10/07/2020 12:00:00 AM EST ATHE NA ([facility]) Jeanette Gross, ELECTRICAL ELECTRONICS TECHNICIAN: [address]38 [address], [place] [address], Ph. Attender: Jeanette Gross [facility] - [facility] 10/07/2020 12:00:00 AM EST ATHE NA ([facility]) Jeanette Gross, ELECTRICAL ELECTRONICS TECHNICIAN: [address]70 [address], [place] [address], Ph. Attender: Jeanette Gross [facility] - [facility] 10/07/2020 12:00:00 AM EST ATHE NA ([facility]) Jeanette Gross, ELECTRICAL ELECTRONICS TECHNICIAN: [address]35 [address], [place] [address], Ph. Attender: Jeanette Gross [facility] - [facility] 10/07/2020 12:00:00 AM EST ATHE NA ([facility]) Jeanette Gross, ELECTRICAL ELECTRONICS TECHNICIAN: [address]64 [address], [place] [address], Ph. Attender: Jeanette Gross [facility] - [facility] 10/07/2020 12:00:00 AM EST ATHE NA ([facility]) Jeanette Gross, ELECTRICAL ELECTRONICS TECHNICIAN: [address], [address], [place] [address], Ph. Attender: Jeanette Gross [facility] - [facility] 10/07/2020 12:00:00 AM EST ATHE NA ([facility]) Jeanette Gross, ELECTRICAL ELECTRONICS TECHNICIAN: [address]67 [address], [place] [address], Ph. Attender: Jeanette Gross [facility] - [facility] 10/07/2020 12:00:00 AM EST ATHE NA ([facility]) Jeanette Gross, ELECTRICAL ELECTRONICS TECHNICIAN: [address]70 [address], [place] [address], Ph. Attender: Jeanette Gross [facility] - [facility] 10/07/2020 12:00:00 AM EST ATHE NA ([facility]) Jeanette Gross, ELECTRICAL ELECTRONICS TECHNICIAN: [address]6777 [address], [place] [address], Ph. Attender: Jeanette Gross [facility] - [facility] 10/07/2020 12:00:00 AM EST ATHE NA ([facility]) Jeanette Gross, ELECTRICAL ELECTRONICS TECHNICIAN: [address]67 [address], [place] [address], Ph. Attender: Jeanette Ginny [facility] - [facility] 10/07/2020 12:00:00 AM EST ATHE NA ([facility]) Jeanette Gross, ELECTRICAL ELECTRONICS TECHNICIAN: [address]108 [address], [place] [address], Ph. Attender: Jeanette Gross [facility] - [facility] 10/07/2020 12:00:00 AM EST ATHE NA ([facility]) Jeanette Gross, ELECTRICAL ELECTRONICS TECHNICIAN: [address]64 [address], [place] [address], Ph. Attender: Jeanette Gross [facility] - [facility] 10/07/2020 12:00:00 AM EST ATHE NA ([facility]) Jeanette Gross, ELECTRICAL ELECTRONICS TECHNICIAN: [address]256 [address], [place] [address], Ph. Attender: Jeanette Gross [facility] - [facility] 10/07/2020 12:00:00 AM EST ATHE NA ([facility]) Jeanette Gross, ELECTRICAL ELECTRONICS TECHNICIAN: [address]88 [address], [place] [address], Ph. Attender: Jeanette Gross [facility] - [facility] 10/07/2020 12:00:00 AM EST ATHE NA ([facility]) Jeanette Gross, ELECTRICAL ELECTRONICS TECHNICIAN: [address]24 [address], [place] [address], Ph. Attender: Jeanette Gross [facility] - [facility] 10/07/2020 12:00:00 AM EST ATHE NA ([facility]) Jeanette Gross, ELECTRICAL ELECTRONICS TECHNICIAN: 94321 [address], [place] [address], Ph. Attender: Jeanette Gross [facility] - [facility] 10/07/2020 12:00:00 AM EST ATHE NA ([facility]) Jeanette Gross, ELECTRICAL ELECTRONICS TECHNICIAN: [address]32 [address], [address], [place] [address], Ph. Attender: Jeanette Gross [facility] - [facility] 10/07/2020 12:00:00 AM EST ATHE NA ([facility]) Jeanette Dangelo Ginny, ELECTRICAL ELECTRONICS TECHNICIAN: [address]123 [address], [place] [address], Ph. Attender: Jeanette Gross [facility] - [facility] 10/07/2020 12:00:00 AM EST ATHE NA ([facility]) Outpatient Attender: Lor Iniguez MD [facility] 09/08/2020 11:30:00 AM EST MEDENT ([facility], ) Kj Rodriguez MD: [address]1819 [address], [place] [address], Ph. Attender: Kj SHEEHAN - [facility] 09/02/2020 12:00:00 AM EST AUGUSTIN ([facility]) Kj Rodriguez MD: 64212 [address], [place] [address], Ph. Attender: Kj Rodriguez MD [place] - [facility] 09/02/2020 12:00:00 AM EST AUGUSTIN ([facility]) Kj Rodriguez MD: 63585 [address], [place] [address], Ph. Attender: Kj Rodriguez MD [place] - [facility] 09/02/2020 12:00:00 AM EST AUGUSTIN ([facility]) Kj Rodriguez MD: 89826 [address], [place] [address], Ph. Attender: Kj SHEEHAN - [facility] 09/02/2020 12:00:00 AM EST AUGUSTIN ([facility]) Kj Rodriguez MD: 52099 [address], [address], [place] [address], Ph. Attender: Kj SHEEHAN - [facility] 09/02/2020 12:00:00 AM EST AUGUSTIN ([facility]) Kj Rodriguez MD: 82007 [address], [place] [address], Ph. Attender: Kj SHEEHAN - [facility] 09/02/2020 12:00:00 AM EST AUGUSTIN ([facility]) Kj Rodriguez MD: 70056 [address], [place] [address], Ph. Attender: Kj SHEEHAN - [facility] 09/02/2020 12:00:00 AM EST AUGUSTIN ([facility]) Kj Rodriguez MD: 05836 [address], [place] [address], Ph. Attender: Kj SHEEHAN - [facility] 09/02/2020 12:00:00 AM EST AUGUSTIN ([facility]) Kj Rodriguez MD: 15807 [address], [address], [place] [address], Ph. Attender: Kj SHEEHAN - [facility] 09/02/2020 12:00:00 AM EST AUGUSTIN ([facility]) Kj Rodriguez MD: 39939 [address], [place] [address], Ph. Attender: Kj Rodriguez MD [place] - [facility] 09/02/2020 12:00:00 AM EST AUGUSTIN ([facility]) Kj Rodriguez MD: 46322 [address], [address], [place] [address], Ph. Attender: Kj Rodriguez MD [place] - [facility] 09/02/2020 12:00:00 AM EST AUGUSTIN ([facility]) Kj Rodriguez MD: 26607 [address], [place] [address], Ph. Attender: Kj SHEEHAN - [facility] 09/02/2020 12:00:00 AM EST AUGUSTIN ([facility]) Kj Rodriguez MD: 82686 [address], [place] [address], Ph. Attender: Kj SHEEHAN - [facility] 09/02/2020 12:00:00 AM EST AUGUSTIN ([facility]) Kj Rodriguez MD: 27690 [address], [address], [place] [address], Ph. Attender: Kj SHEEHAN - [facility] 09/02/2020 12:00:00 AM EST AUGUSTIN ([facility]) Kj Rodriguez MD: 21126 [address], [place] [address], Ph. Attender: Kj SHEEHAN - [facility] 09/02/2020 12:00:00 AM EST AUGUSTIN ([facility]) Kj Rodriguez MD: 58931 [address], [address], [place] [address], Ph. Attender: Kj Rodriguez MD [place] - [facility] 09/02/2020 12:00:00 AM EST AUGUSTIN ([facility]) Kj Rodriguez MD: 38729 [address], [address], [place] [address], Ph. Attender: Kj Rodriguez MD [place] - [facility] 09/02/2020 12:00:00 AM EST AUGUSTIN ([facility]) Kj Rodriguez MD: 12549 [address], [address], [place] [address], Ph. Attender: Kj Rodriguez MD [place] - [facility] 09/02/2020 12:00:00 AM EST AUGUSTIN ([facility]) Kj Rodriguez MD: 30218 [address], [address], [place] [address], Ph. Attender: Kj Rodriguez MD [place] - [facility] 09/02/2020 12:00:00 AM EST AUGUSTIN ([facility]) Kj Rodriguez MD: 70953 [address], [address], [place] [address], Ph. Attender: Kj Rodriguez MD [place] - [facility] 09/02/2020 12:00:00 AM EST AUGUSTIN ([facility]) Kj Rodriguez MD: 54217 [address], [address], [place] [address], Ph. Attender: Kj Rodriguez MD [place] - [facility] 09/02/2020 12:00:00 AM EST AUGUSTIN ([facility]) Kj Rodriguez MD: 37602 [address], [place] [address], Ph. Attender: Kj Rodriguez MD [place] - [facility] 08/20/2020 12:00:00 AM EST AUGUSTIN ([facility]) Kj Rodriguez MD: 80140 [address], [place] [address], Ph. Attender: Kj SHEEHAN - [facility] 08/20/2020 12:00:00 AM EST AUGUSTIN ([facility]) Kj Rodriguez MD: 42930 [address], [place] [address], Ph. Attender: Kj SHEEHAN - [facility] 08/20/2020 12:00:00 AM EST AUGUSTIN ([facility]) Kj Rodriguez MD: 00549 [address], [place] [address], Ph. Attender: Kj SHEEHAN - [facility] 08/20/2020 12:00:00 AM EST AUGUSTIN ([facility]) Kj Rodriguez MD: 70789 [address], [place] [address], Ph. Attender: Kj SHEEHAN - [facility] 08/20/2020 12:00:00 AM EST AUGUSTIN ([facility]) Kj Rodriguez MD: 42955 [address], [place] [address], Ph. Attender: Kj SHEEHAN - [facility] 08/20/2020 12:00:00 AM EST AUGUSTIN ([facility]) Kj Rodriguez MD: 38731 [address], [place] [address], Ph. Attender: Kj Rodriguez MD [place] - [facility] 08/20/2020 12:00:00 AM EST AUGUSTIN ([facility]) Kj Rodriguez MD: 34695 [address], [place] [address], Ph. Attender: Kj Rodriguez MD [place] - [facility] 08/20/2020 12:00:00 AM EST AUGUSTIN ([facility]) Kj Rodriguez MD: 91165 [address], [place] [address], Ph. Attender: Kj Rodriguez MD [place] - [facility] 08/20/2020 12:00:00 AM EST AUGUSTIN ([facility]) Kj Rodriguez MD: 90779 [address], [place] [address], Ph. Attender: Kj SHEEHAN - [facility] 08/20/2020 12:00:00 AM EST AUGUSTIN ([facility]) Kj Rodriguez MD: 00087 [address], [place] [address], Ph. Attender: Kj SHEEHAN - [facility] 08/20/2020 12:00:00 AM EST AUGUSTIN ([facility]) Kj Rodriguez MD: 68483 [address], [place] [address], Ph. Attender: Kj SHEEHAN - [facility] 08/20/2020 12:00:00 AM EST AUGUSTIN ([facility]) Kj Rodriguez MD: 24647 [address], [address], [place] [address], Ph. Attender: Kj Rodriguez MD [place] - [facility] 08/20/2020 12:00:00 AM EST AUGUSTIN ([facility]) Kj Rodriguez MD: 08303 [address], [place] [address], Ph. Attender: Kj Rodriguez MD [place] - [facility] 08/20/2020 12:00:00 AM EST AUGUSTIN ([facility]) Kj Rodriguez MD: 63035 [address], [place] [address], Ph. Attender: Kj Rodriguez MD [place] - [facility] 08/20/2020 12:00:00 AM EST AUGUSTIN ([facility]) Kj Rodriguez MD: 11840 [address], [place] [address], Ph. Attender: Kj Rodriguez MD [place] - [facility] 08/20/2020 12:00:00 AM EST AUGUSTIN ([facility]) Kj Rodriguez MD: 06782 [address], [place] [address], Ph. Attender: Kj Rodriguez MD [place] - [facility] 08/20/2020 12:00:00 AM EST AUGUSTIN ([facility]) Kj Rodriguez MD: 45850 [address], [place] [address], Ph. Attender: Kj Rodriguez MD [place] - [facility] 08/20/2020 12:00:00 AM EST AUGUSTIN ([facility]) Kj Rodriguez MD: 69547 [address], [address], [place] [address], Ph. Attender: Kj Rodriguez MD [place] - [facility] 08/20/2020 12:00:00 AM EST AUGUSTIN ([facility]) Kj Rodriguez MD: 24765 [address], [address], [place] [address], Ph. Attender: Kj Rodriguez MD [place] - [facility] 08/20/2020 12:00:00 AM EST AUGUSTIN ([facility]) Kj Rodriguez MD: 98823 [address], [place] [address], Ph. Attender: Kj Rodriguez MD [place] - [facility] 08/20/2020 12:00:00 AM EST AUGUSTIN ([facility]) Kj Rodriguez MD: 13839 [address], [address], [place] [address], Ph. Attender: Kj SHEEHAN - [facility] 08/20/2020 12:00:00 AM EST AUGUSTIN ([facility]) Kj Rodriguez MD: 67266 [address], [place] [address], Ph. [phone] Attender: Kj SHEEHAN - [facility] 08/15/2020 12:00:00 AM EST AUGUSTIN ([facility]) Kj Rodriguez MD: [address], [address], [place] [address], Ph. [phone] Attender: Kj SHEEHAN - [facility] 08/15/2020 12:00:00 AM EST AUGUSTIN ([facility]) Kj Rodriguez MD: [address], [address], [place] [address], Ph. [phone] Attender: Kj Rodriguez MD [place] - [facility] 08/15/2020 12:00:00 AM EST AUGUSTIN ([facility]) Kj Rodriguez MD: [address]32 [address], [place] [address], Ph. [phone] Attender: Kj Rodriguez MD [place] - [facility] 08/15/2020 12:00:00 AM EST AUGUSTIN ([facility]) Kj Rodriguez MD: [address]65 [address], [place] [address], Ph. [phone] Attender: Kj Rodriguez MD [place] - [facility] 08/15/2020 12:00:00 AM EST AUGUSTIN ([facility]) Kj Rodriguez MD: [address]449 [address], [place] [address], Ph. [phone] Attender: Kj Rodriguez MD [place] - [facility] 08/15/2020 12:00:00 AM EST AUGUSTIN ([facility]) Kj Rodriguez MD: [address]81 [address], [address], [place] [address], Ph. [phone] Attender: Kj Rodriguez MD [place] - [facility] 08/15/2020 12:00:00 AM EST AUGUSTIN ([facility]) Kj Rodriguez MD: [address]838 [address], [place] [address], Ph. [phone] Attender: Kj Rodriguez MD [place] - [facility] 08/15/2020 12:00:00 AM EST AUGUSTIN ([facility]) Kj Rodriguez MD: [address]00 [address], [place] [address], Ph. [phone] Attender: Kj SHEEHAN - [facility] 08/15/2020 12:00:00 AM EST AUGUSTIN ([facility]) Kj Rodriguez MD: [address]79 [address], [address], [place] [address], Ph. [phone] Attender: Kj Rodriguez MD [place] - [facility] 08/15/2020 12:00:00 AM EST AUGUSTIN ([facility]) Kj Rodriguez MD: [address]11 [address], [address], [place] [address], Ph. [phone] Attender: Kj Rodriguez MD [place] - [facility] 08/15/2020 12:00:00 AM EST AUGUSTIN ([facility]) Kj Rodriguez MD: [address]241 [address], [place] [address], Ph. [phone] Attender: Kj Rodriguez MD [place] - [facility] 08/15/2020 12:00:00 AM EST AUGUSTIN ([facility]) Kj Rodriguez MD: 04807 [address], [address], [place] [address], Ph. [phone] Attender: Kj Rodriguez MD [place] - [facility] 08/15/2020 12:00:00 AM EST AUGUSTIN ([facility]) Kj Rodriguez MD: [address]702 [address], [place] [address], Ph. [phone] Attender: Kj Rodriguez MD [place] - [facility] 08/15/2020 12:00:00 AM EST AUGUSTIN ([facility]) Kj Rodriguez MD: 28442 [address], [place] [address], Ph. [phone] Attender: Kj Rodriguez MD [place] - [facility] 08/15/2020 12:00:00 AM EST AUGUSTIN ([facility]) Kj Rodriguez MD: 36272 [address], [address], [place] [address], Ph. [phone] Attender: Kj Rodriguez MD [place] - [facility] 08/15/2020 12:00:00 AM EST AUGUSTIN ([facility]) Kj Rodriguez MD: [address]4535 [address], [address], [place] [address], Ph. [phone] Attender: Kj Rodriguez MD [place] - [facility] 08/15/2020 12:00:00 AM EST AUGUSTIN ([facility]) Kj Rodriguez MD: 40605 [address], [address], [place] [address], Ph. [phone] Attender: Kj SHEEHAN - [facility] 08/15/2020 12:00:00 AM EST AUGUSTIN ([facility]) Kj Rodriguez MD: 53257 [address], [address], [place] [address], Ph. [phone] Attender: Kj SHEEHAN - [facility] 08/15/2020 12:00:00 AM EST AUGUSTIN ([facility]) Kj Rodriguez MD: 17988 [address], [address], [place] [address], Ph. [phone] Attender: Kj SHEEHAN - [facility] 08/15/2020 12:00:00 AM EST AUGUSTIN ([facility]) Kj Rodriguez MD: 77798 [address], [address], [place] [address], Ph. [phone] Attender: Kj SHEEHAN - [facility] 08/15/2020 12:00:00 AM EST AUGUSTIN ([facility]) Kj Rodriguez MD: [address]15 [address], [address], [place] [address], Ph. [phone] Attender: Kj SHEEHAN - [facility] 08/15/2020 12:00:00 AM EST AUGUSTIN ([facility]) Kj Rodriguez MD: [address]98 [address], [place] [address], Ph. [phone] Attender: Kj Rodriguez MD [place] - [facility] 08/15/2020 12:00:00 AM EST AUGUSTIN ([facility]) Jeanette Gross, ELECTRICAL ELECTRONICS TECHNICIAN: [address], [place] [address], Ph. Attender: Jeanette Gross [facility] - [facility] 08/12/2020 12:00:00 AM EST ATHE NA ([facility]) Jeanette Gross, ELECTRICAL ELECTRONICS TECHNICIAN: [address], [place] [address], Ph. Attender: Jeanette Gross [facility] 08/12/2020 12:00:00 AM EST ATHE NA ([facility]) Jeanette Gross, ELECTRICAL ELECTRONICS TECHNICIAN: [address], [place] [address], Ph. Attender: Jeanette Gross [facility] - [facility] 08/12/2020 12:00:00 AM EST ATHE NA ([facility]) Jeanette Gross, ELECTRICAL ELECTRONICS TECHNICIAN: [address], [place] [address], Ph. Attender: Jeanette Gross [facility] - [facility] 08/12/2020 12:00:00 AM EST ATHE NA ([facility]) Jeanette Gauthier Ginny, ELECTRICAL ELECTRONICS TECHNICIAN: [address], [place] [address], Ph. Attender: Jeanette Gross [facility] - [facility] 08/12/2020 12:00:00 AM EST ATHE NA ([facility]) Jeanette Gross, ELECTRICAL ELECTRONICS TECHNICIAN: [address]49 [address], [place] [address], Ph. Attender: Jeanette Gross [facility] - [facility] 08/12/2020 12:00:00 AM EST ATHE NA ([facility]) Jeanette Gross, ELECTRICAL ELECTRONICS TECHNICIAN: [address]57 [address], [place] [address], Ph. Attender: Jeanette Gross [facility] - [facility] 08/12/2020 12:00:00 AM EST ATHE NA ([facility]) Jeanette Gross, ELECTRICAL ELECTRONICS TECHNICIAN: [address], [place] [address], Ph. Attender: Jeanette Gross [facility] - [facility] 08/12/2020 12:00:00 AM EST ATHE NA ([facility]) Jeanette Gross, ELECTRICAL ELECTRONICS TECHNICIAN: [address]245 [address], [place] [address], Ph. Attender: Jeanette Gross [facility] - [facility] 08/12/2020 12:00:00 AM EST ATHE NA ([facility]) Jeanette Gross, ELECTRICAL ELECTRONICS TECHNICIAN: [address], [place] [address], Ph. Attender: Jeanette Gross [facility] - [facility] 08/12/2020 12:00:00 AM EST ATHE NA ([facility]) Jeanette Gross, ELECTRICAL ELECTRONICS TECHNICIAN: [address]97 [address], [place] [address], Ph. Attender: Jeanette Gross [facility] - [facility] 08/12/2020 12:00:00 AM EST ATHE NA ([facility]) Jeanette Gross, ELECTRICAL ELECTRONICS TECHNICIAN: [address], [place] [address], Ph. Attender: Jeanette Gross [facility] 08/12/2020 12:00:00 AM EST ATHE NA ([facility]) Jeanette Gross, ELECTRICAL ELECTRONICS TECHNICIAN: [address]31 [address], [place] [address], Ph. Attender: Jeanette Gross [facility] 08/12/2020 12:00:00 AM EST ATHE NA ([facility]) Jeanette Gross, ELECTRICAL ELECTRONICS TECHNICIAN: [address]60 [address], [place] [address], Ph. Attender: Jeanette Gross [facility] 08/12/2020 12:00:00 AM EST ATHE NA ([facility]) Jeanette Gross, ELECTRICAL ELECTRONICS TECHNICIAN: [address]33 [address], [place] [address], Ph. Attender: Jeanette Gross [facility] - [facility] 08/12/2020 12:00:00 AM EST ATHE NA ([facility]) Jeanette Gross, ELECTRICAL ELECTRONICS TECHNICIAN: [address]74 [address], [place] [address], Ph. Attender: Jeanette Gross [facility] 08/12/2020 12:00:00 AM EST ATHE NA ([facility]) Jeanette Gross, ELECTRICAL ELECTRONICS TECHNICIAN: [address]703 [address], [address], [place] [address], Ph. Attender: Jeanette Gross [facility] 08/12/2020 12:00:00 AM EST ATHE NA ([facility]) Jeanette Gross, ELECTRICAL ELECTRONICS TECHNICIAN: [address]161 [address], [address], [place] [address], Ph. Attender: Jeanette Gross [facility] 08/12/2020 12:00:00 AM EST ATHE NA ([facility]) Jeanette Gross, ELECTRICAL ELECTRONICS TECHNICIAN: [address]329 [address], [place] [address], Ph. Attender: Jeanette Eidvasile [facility] - [facility] 08/12/2020 12:00:00 AM EST ATHE NA ([facility]) Jeanette Gross, ELECTRICAL ELECTRONICS TECHNICIAN: [address]19 [address], [address], [place] [address], Ph. Attender: Jeanette Sugeyelhamvasile [facility] - [facility] 08/12/2020 12:00:00 AM EST ATHE NA ([facility]) Jeanette Gross, ELECTRICAL ELECTRONICS TECHNICIAN: 49269 [address], [address], [place] [address], Ph. Attender: Jeanette Sugeyelhamvasile [facility] - [facility] 08/12/2020 12:00:00 AM EST ATHE NA ([facility]) Jeanette Gross, ELECTRICAL ELECTRONICS TECHNICIAN: [address], [address], [place] [address], Ph. Attender: Jeanette Gross [facility] - [facility] 08/12/2020 12:00:00 AM EST ATHE NA ([facility]) Jeanette Gross, ELECTRICAL ELECTRONICS TECHNICIAN: [address]295 [address], [place] [address], Ph. Attender: Jeanette Gross [facility] - [facility] 08/12/2020 12:00:00 AM EST ATHE NA ([facility]) Jeanette Gross, ELECTRICAL ELECTRONICS TECHNICIAN: [address]24 [address], [place] [address], Ph. Attender: Jeanette Grsos [facility] - [facility] 08/12/2020 12:00:00 AM EST ATHE NA ([facility]) Outpatient Attender: Lor Iniguez MD [facility] 07/22/2020 11:15:00 AM EDT MEDENT ([facility], ) Kj Rodriguez MD: [address]27 [address], [place] [address], Ph. Attender: Kj Rodriguez MD [place] - [facility] 07/16/2020 12:00:00 AM EDT AUGUSTIN ([facility]) Kj Rodriguez MD: 5[address]13 [address], [place] [address], Ph. Attender: Kj Rodriguez MD [place] - [facility] 07/16/2020 12:00:00 AM EDT AUGUSTIN ([facility]) Kj Rodriguez MD: 29120 [address], [place] [address], Ph. Attender: Kj Rodriguez MD [place] - [facility] 07/16/2020 12:00:00 AM EDT AUGUSTIN ([facility]) Kj Rodriguez MD: 59379 [address], [address], [place] [address], Ph. Attender: Kj Rodriguez MD [place] - [facility] 07/16/2020 12:00:00 AM EDT AUGUSTIN ([facility]) Kj Rodriguez MD: 08975 [address], [address], [place] [address], Ph. Attender: Kj SHEEHAN - [facility] 07/16/2020 12:00:00 AM EDT AUGUSTIN ([facility]) Kj Rodriguez MD: 93830 [address], [address], [place] [address], Ph. Attender: Kj SHEEHAN - [facility] 07/16/2020 12:00:00 AM EDT AUGUSTIN ([facility]) Kj Rodriguez MD: 85748 [address], [address], [place] [address], Ph. Attender: Kj Rodriguez MD [place] - [facility] 07/16/2020 12:00:00 AM EDT AUGUSTIN ([facility]) Kj Rodriguez MD: 14793 [address], [address], [place] [address], Ph. Attender: Kj SHEEHAN - [facility] 07/16/2020 12:00:00 AM EDT AUGUSTIN ([facility]) Kj Rodriguez MD: 56357 [address], [address], [place] [address], Ph. Attender: Kj SHEEHAN - [facility] 07/16/2020 12:00:00 AM EDT AUGUSTIN ([facility]) Kj Rodriguez MD: 97831 [address], [address], [place] [address], Ph. Attender: Kj SHEEHAN - [facility] 07/16/2020 12:00:00 AM EDT AUGUSTIN ([facility]) Kj Rodriguez MD: 14831 [address], [address], [place] [address], Ph. Attender: Kj SHEEHAN - [facility] 07/16/2020 12:00:00 AM EDT AUGUSTIN ([facility]) Kj Rodriguez MD: 98834 [address], [address], [place] [address], Ph. Attender: Kj SHEEHAN - [facility] 07/16/2020 12:00:00 AM EDT AUGUSTIN ([facility]) Kj Rodriguez MD: 55692 [address], [address], [place] [address], Ph. Attender: Kj SHEEHAN - [facility] 07/16/2020 12:00:00 AM EDT AUGUSTIN ([facility]) Kj Rodriguez MD: 94111 [address], [address], [place] [address], Ph. Attender: Kj SHEEHAN - [facility] 07/16/2020 12:00:00 AM EDT AUGUSTIN ([facility]) Kj Rodriguez MD: 43238 [address], [address], [place] [address], Ph. Attender: Kj SHEEHAN - [facility] 07/16/2020 12:00:00 AM EDT AUGUSTIN ([facility]) Kj Rodriguez MD: 23384 [address], [address], [place] [address], Ph. Attender: Kj SHEEHAN - [facility] 07/16/2020 12:00:00 AM EDT AUGUSTIN ([facility]) Kj Rodriguez MD: 31052 [address], [address], [place] [address], Ph. Attender: Kj SHEEHAN - [facility] 07/16/2020 12:00:00 AM EDT AUGUSTIN ([facility]) Kj Rodriguez MD: 42519 [address], [address], [place] [address], Ph. Attender: Kj SHEEHAN - [facility] 07/16/2020 12:00:00 AM EDT AUGUSTIN ([facility]) Kj Rodriguez MD: 45687 [address], [address], [place] [address], Ph. Attender: Kj SHEEHAN - [facility] 07/16/2020 12:00:00 AM EDT AUGUSTIN ([facility]) Kj Rodriguez MD: 23220 [address], [address], [place] [address], Ph. Attender: Kj SHEEHAN - [facility] 07/16/2020 12:00:00 AM EDT AUGUSTIN ([facility]) Kj Rodriguez MD: 08098 [address], [address], [place] [address], Ph. Attender: Kj SHEEHAN - [facility] 07/16/2020 12:00:00 AM EDT AUGUSTIN ([facility]) Kj Rodriguez MD: 54896 [address], [address], [place] [address], Ph. Attender: Kj Rodriguez MD [place] - [facility] 07/16/2020 12:00:00 AM EDT AUGUSTIN ([facility]) Kj Rodriguez MD: 89084 [address], [address], [place] [address], Ph. Attender: Kj SHEEHAN - [facility] 07/16/2020 12:00:00 AM EDT AUGUSTIN ([facility]) Kj Rodriguez MD: 57558 [address], [address], [place] [address], Ph. Attender: Kj SHEEHAN - [facility] 07/16/2020 12:00:00 AM EDT AUGUSTIN ([facility]) Kj Rodriguez MD: 97158 [address], [address], [place] [address], Ph. Attender: Kj Rodriguez MD [place] - [facility] 07/16/2020 12:00:00 AM EDT AUGUSTIN ([facility]) Kj Rodriguez MD: 24472 [address], [place] [address], Ph. [phone] Attender: Kj SHEEHAN - [facility] 07/11/2020 12:00:00 AM EDT AUGUSTIN ([facility]) Kj Rodriguez MD: 95979 [address], [place] [address], Ph. [phone] Attender: Kj SHEEHAN - [facility] 07/11/2020 12:00:00 AM EDT AUGUSTIN ([facility]) Kj Rodriguez MD: 75782 [address], [address], [place] [address], Ph. [phone] Attender: Kj Rodriguez MD [place] - [facility] 07/11/2020 12:00:00 AM EDT AUGUSTIN ([facility]) Kj Rodriguez MD: 05869 [address], [address], [place] [address], Ph. [phone] Attender: Kj Rodriguez MD [place] - [facility] 07/11/2020 12:00:00 AM EDT AUGUSTIN ([facility]) Kj Rodriguez MD: 51669 [address], [address], [place] [address], Ph. [phone] Attender: Kj Rodriguez MD [place] - [facility] 07/11/2020 12:00:00 AM EDT AUGUSTIN ([facility]) Kj Rodriguez MD: 11706 [address], [address], [place] [address], Ph. [phone] Attender: Kj Rodriguez MD [place] - [facility] 07/11/2020 12:00:00 AM EDT AUGUSTIN ([facility]) Kj Rodriguez MD: 45999 [address], [address], [place] [address], Ph. [phone] Attender: Kj SHEEHAN - [facility] 07/11/2020 12:00:00 AM EDT AUGUSTIN ([facility]) Kj Rodriguez MD: 14384 [address], [address], [place] [address], Ph. [phone] Attender: Kj SHEEHAN - [facility] 07/11/2020 12:00:00 AM EDT AUGUSTIN ([facility]) Kj Rodriguez MD: 54774 [address], [address], [place] [address], Ph. [phone] Attender: Kj Rodriguez MD [place] - [facility] 07/11/2020 12:00:00 AM EDT AUGUSTIN ([facility]) Kj Rodriguez MD: 51309 [address], [address], [place] [address], Ph. [phone] Attender: Kj Rodriguez MD [place] - [facility] 07/11/2020 12:00:00 AM EDT AUGUSTIN ([facility]) Kj Rodriguez MD: 39068 [address], [address], [place] [address], Ph. [phone] Attender: Kj SHEEHAN - [facility] 07/11/2020 12:00:00 AM EDT AUGUSTIN ([facility]) Kj Rodriguez MD: 94097 [address], [address], [place] [address], Ph. [phone] Attender: Kj Rodriguez MD [place] - [facility] 07/11/2020 12:00:00 AM EDT AUGUSTIN ([facility]) Kj Rodriguez MD: 13169 [address], [address], [place] [address], Ph. [phone] Attender: Kj Rodriguez MD [place] - [facility] 07/11/2020 12:00:00 AM EDT AUGUSTIN ([facility]) Kj Rodriguez MD: 37688 [address], [address], [place] [address], Ph. [phone] Attender: Kj SHEEHAN - [facility] 07/11/2020 12:00:00 AM EDT AUGUSTIN ([facility]) Kj Rodriguez MD: 79705 [address], [address], [place] [address], Ph. [phone] Attender: Kj SHEEHAN - [facility] 07/11/2020 12:00:00 AM EDT AUGUSTIN ([facility]) Kj Rodriguez MD: 80920 [address], [address], [place] [address], Ph. [phone] Attender: Kj Rodriguez MD [place] - [facility] 07/11/2020 12:00:00 AM EDT AUGUSTIN ([facility]) Kj Rodriguez MD: 45659 [address], [address], [place] [address], Ph. [phone] Attender: Kj Rodriguez MD [place] - [facility] 07/11/2020 12:00:00 AM EDT AUGUSTIN ([facility]) Kj Rodriguez MD: 73471 [address], [address], [place] [address], Ph. [phone] Attender: Kj SHEEHAN - [facility] 07/11/2020 12:00:00 AM EDT AUGUSTIN ([facility]) Kj Rodriguez MD: 85738 [address], [address], [place] [address], Ph. [phone] Attender: Kj Rodriguez MD [place] - [facility] 07/11/2020 12:00:00 AM EDT AUGUSTIN ([facility]) Kj Rodriguez MD: [address], [address], [place] [address], Ph. [phone] Attender: Kj SHEEHAN - [facility] 07/11/2020 12:00:00 AM EDT AUGUSTIN ([facility]) Kj Rodriguez MD: [address], [address], [place] [address], Ph. [phone] Attender: Kj SHEEHAN - [facility] 07/11/2020 12:00:00 AM EDT AUGUSTIN ([facility]) Kj Rodriguez MD: [address], [address], [place] [address], Ph. [phone] Attender: Kj Rodriguez MD [place] - [facility] 07/11/2020 12:00:00 AM EDT AUGUSTIN ([facility]) Kj Rodriguez MD: [address], [address], [place] [address], Ph. [phone] Attender: Kj Rodriguez MD [place] - [facility] 07/11/2020 12:00:00 AM EDT AUGUSTIN ([facility]) Kj Rodriguez MD: [address], [address], [place] [address], Ph. [phone] Attender: Kj Rodriguez MD [place] - [facility] 07/11/2020 12:00:00 AM EDT AUGUSTIN ([facility]) Kj Rodriguez MD: [address], [address], [place] [address], Ph. [phone] Attender: Kj Rodriguez MD [place] - [facility] 07/11/2020 12:00:00 AM EDT AUGUSTIN ([facility]) Kj Rodriguez MD: [address], [address], [place] [address], Ph. [phone] Attender: Kj Rodriguez MD [place] - [facility] 07/11/2020 12:00:00 AM EDT AUGUSTIN ([facility]) Jeanette Gross, ELECTRICAL ELECTRONICS TECHNICIAN: [address], [address], [place] [address], Ph. Attender: [facility] 07/08/2020 12:00:00 AM EDT ATHSheri DIGGS ([facility]) Jeanette Gross, ELECTRICAL ELECTRONICS TECHNICIAN: [address], [address], [place] [address], Ph. Attender: Jeanette Gross [facility] - [facility] 07/08/2020 12:00:00 AM EDT ATHE NA ([facility]) Jeanette Gross, ELECTRICAL ELECTRONICS TECHNICIAN: [address], [place] [address], Ph. Attender: Jeanette Gross [facility] - [facility] 07/08/2020 12:00:00 AM EDT ATHE NA ([facility]) Jeanette Gross, ELECTRICAL ELECTRONICS TECHNICIAN: [address], [place] [address], Ph. Attender: Jeanette Gross [facility] - [facility] 07/08/2020 12:00:00 AM EDT ATHE NA ([facility]) Jeanette Gross, ELECTRICAL ELECTRONICS TECHNICIAN: [address], [place] [address], Ph. Attender: Jeanette Gross [facility] - [facility] 07/08/2020 12:00:00 AM EDT ATHE NA ([facility]) Jeanette Gross, ELECTRICAL ELECTRONICS TECHNICIAN: [address], [place] [address], Ph. Attender: Jeanette Gross [facility] - [facility] 07/08/2020 12:00:00 AM EDT ATHE NA ([facility]) Jeanette Gross, ELECTRICAL ELECTRONICS TECHNICIAN: [address], [place] [address], Ph. Attender: Jeanette Gross [facility] - [facility] 07/08/2020 12:00:00 AM EDT ATHE NA ([facility]) Jeanette Gross, ELECTRICAL ELECTRONICS TECHNICIAN: [address], [address], [place] [address], Ph. Attender: Jeanette Gross [facility] 07/08/2020 12:00:00 AM EDT ATHE NA ([facility]) Jeanette Gross, ELECTRICAL ELECTRONICS TECHNICIAN: [address], [address], [place] [address], Ph. Attender: Jeanette Gross [facility] 07/08/2020 12:00:00 AM EDT ATHE NA ([facility]) Jeanette Gross, ELECTRICAL ELECTRONICS TECHNICIAN: [address], [place] [address], Ph. Attender: Jeanette Eidvasile [facility] 07/08/2020 12:00:00 AM EDT ATHE NA ([facility]) Jeanette Gross, ELECTRICAL ELECTRONICS TECHNICIAN: [address], [address], [place] [address], Ph. Attender: Jeanette Gross [facility] 07/08/2020 12:00:00 AM EDT ATHE NA ([facility]) Jeanette Gross, ELECTRICAL ELECTRONICS TECHNICIAN: [address], [address], [place] [address], Ph. Attender: Jeanette Eidvasile [facility] 07/08/2020 12:00:00 AM EDT ATHE NA ([facility]) Jeanette Gross, ELECTRICAL ELECTRONICS TECHNICIAN: [address], [address], [place] [address], Ph. Attender: Jeanette Gross [facility] - [facility] 07/08/2020 12:00:00 AM EDT ATHE NA ([facility]) Jeanette Gross, ELECTRICAL ELECTRONICS TECHNICIAN: [address], [place] [address], Ph. Attender: Jeanette Gross [facility] - [facility] 07/08/2020 12:00:00 AM EDT ATHE NA ([facility]) Jeanette Gross, ELECTRICAL ELECTRONICS TECHNICIAN: [address], [place] [address], Ph. Attender: Jeanette Gross [facility] - [facility] 07/08/2020 12:00:00 AM EDT ATHE NA ([facility]) Jeanette Gross, ELECTRICAL ELECTRONICS TECHNICIAN: [address], [place] [address], Ph. Attender: Jeanette Gross [facility] - [facility] 07/08/2020 12:00:00 AM EDT ATHE NA ([facility]) Jeanette Gross, ELECTRICAL ELECTRONICS TECHNICIAN: [address], [facility] [place] [address], Ph. Attender: Jeanette Gross [facility] - [facility] 07/08/2020 12:00:00 AM EDT ATHE NA ([facility]) Jeanette Gross, ELECTRICAL ELECTRONICS TECHNICIAN: [address]97 [address], [facility] [place] [address], Ph. Attender: Jeanette Gross [facility] - [facility] 07/08/2020 12:00:00 AM EDT ATHE NA ([facility]) Jeanette Gauthier Sugeyadam, ELECTRICAL ELECTRONICS TECHNICIAN: [address], [address], [place] [address], Ph. Attender: Jeanette Gross [facility] - [facility] 07/08/2020 12:00:00 AM EDT ATHE NA ([facility]) Jeanette Gross, ELECTRICAL ELECTRONICS TECHNICIAN: [address]64 [address], [address], [place] [address], Ph. Attender: Jeanette Gross [facility] - [facility] 07/08/2020 12:00:00 AM EDT ATHE NA ([facility]) Jeanette Gross, ELECTRICAL ELECTRONICS TECHNICIAN: [address], [place] [address], Ph. Attender: Jeantete Gross [facility] 07/08/2020 12:00:00 AM EDT ATHE NA ([facility]) Jeanette Gross, ELECTRICAL ELECTRONICS TECHNICIAN: [address], [address], [place] [address], Ph. Attender: Jeanette Gross [facility] - [facility] 07/08/2020 12:00:00 AM EDT ATHE NA ([facility]) Jeanette Gross, ELECTRICAL ELECTRONICS TECHNICIAN: [address], [address], [place] [address], Ph. Attender: Jeanette Gross [facility] - [facility] 07/08/2020 12:00:00 AM EDT ATHE NA ([facility]) Jeanette Gross, ELECTRICAL ELECTRONICS TECHNICIAN: [address], [address], [place] [address], Ph. Attender: Jeanette Gross [facility] 07/08/2020 12:00:00 AM EDT ATHE NA ([facility]) Jeanette Gross, ELECTRICAL ELECTRONICS TECHNICIAN: [address], [place] [address], Ph. Attender: Jeanette Gross [facility] - [facility] 07/08/2020 12:00:00 AM EDT ATHE NA ([facility]) Jeanette Gross, ELECTRICAL ELECTRONICS TECHNICIAN: [address], [place] [address], Ph. Attender: Jeanette Gross [facility] - [facility] 07/08/2020 12:00:00 AM EDT ATHE NA ([facility]) Jeanette Gross, ELECTRICAL ELECTRONICS TECHNICIAN: [address], [place] [address], Ph. Attender: Jeanette Gross [facility] - [facility] 07/08/2020 12:00:00 AM EDT ATHE NA ([facility]) Jeanette Gross, ELECTRICAL ELECTRONICS TECHNICIAN: [address]49 [address], [place] [address], Ph. Attender: Jeanette Gross [facility] - [facility] 06/11/2020 12:00:00 AM EDT ATHE NA ([facility]) Jeanette Gross, ELECTRICAL ELECTRONICS TECHNICIAN: [address]80 [address], [address], [place] [address], Ph. Attender: Jeanette Gross [facility] - [facility] 06/11/2020 12:00:00 AM EDT ATHE NA ([facility]) Jeanette Gross, ELECTRICAL ELECTRONICS TECHNICIAN: [address]258 [address], [address], [place] [address], Ph. Attender: Jeanette Gross [facility] - [facility] 06/11/2020 12:00:00 AM EDT ATHE NA ([facility]) Jeanette Gross, ELECTRICAL ELECTRONICS TECHNICIAN: [address]73 [address], [place] [address], Ph. Attender: Jeanette Gross [facility] - [facility] 06/11/2020 12:00:00 AM EDT ATHE NA ([facility]) Jeanette Gross, ELECTRICAL ELECTRONICS TECHNICIAN: [address]303 [address], [place] [address], Ph. Attender: Jeanette Gross [facility] - [facility] 06/11/2020 12:00:00 AM EDT ATHE NA ([facility]) Jeanette Gross, ELECTRICAL ELECTRONICS TECHNICIAN: 28043 [address], [place] [address], Ph. Attender: Jeanette Gross [facility] - [facility] 06/11/2020 12:00:00 AM EDT ATHE NA ([facility]) Jeantete Gross, ELECTRICAL ELECTRONICS TECHNICIAN: [address]98 [address], [place] [address], Ph. Attender: Jeanette Gross [facility] - [facility] 06/11/2020 12:00:00 AM EDT ATHE NA ([facility]) Jeanette Gross, ELECTRICAL ELECTRONICS TECHNICIAN: [address]173 [address], [place] [address], Ph. Attender: Jeanette Gross [facility] - [facility] 06/11/2020 12:00:00 AM EDT ATHE NA ([facility]) Jeanette Gross, ELECTRICAL ELECTRONICS TECHNICIAN: 47509 [address], [address], [place] [address], Ph. Attender: Jeanette Gross [facility] - [facility] 06/11/2020 12:00:00 AM EDT ATHE NA ([facility]) Jeanette Gross, ELECTRICAL ELECTRONICS TECHNICIAN: [address]29 [address], [address], [place] [address], Ph. Attender: Jeanette Gross [facility] - [facility] 06/11/2020 12:00:00 AM EDT ATHE NA ([facility]) Jeanette Gross, ELECTRICAL ELECTRONICS TECHNICIAN: 33481 [address], [place] [address], Ph. Attender: Jeanette Gross [facility] - [facility] 06/11/2020 12:00:00 AM EDT ATHE NA ([facility]) Jeanette Gross, ELECTRICAL ELECTRONICS TECHNICIAN: [address]01 [address], [address], [place] [address], Ph. Attender: Jeanette Gross [facility] - [facility] 06/11/2020 12:00:00 AM EDT ATHE NA ([facility]) Jeanette Gross, ELECTRICAL ELECTRONICS TECHNICIAN: [address]71 [address], [address], [place] [address], Ph. Attender: Jeanette Gross [facility] - [facility] 06/11/2020 12:00:00 AM EDT ATHE NA ([facility]) Jeanette Gross, ELECTRICAL ELECTRONICS TECHNICIAN: [address]69 [address], [address], [place] [address], Ph. Attender: Jeanettesheri Gross [facility] - [facility] 06/11/2020 12:00:00 AM EDT ATHE NA ([facility]) Jeanette Gross, ELECTRICAL ELECTRONICS TECHNICIAN: [address]4948 [address], [place] [address], Ph. Attender: Jeanette Gross [facility] - [facility] 06/11/2020 12:00:00 AM EDT ATHE NA ([facility]) Jeanette Gross, ELECTRICAL ELECTRONICS TECHNICIAN: 41333 [address], [place] [address], Ph. Attender: Jeanette Gross [facility] - [facility] 06/11/2020 12:00:00 AM EDT ATHE NA ([facility]) Jeanette Gross, ELECTRICAL ELECTRONICS TECHNICIAN: [address]997 [address], [place] [address], Ph. Attender: Jeanette Gross [facility] - [facility] 06/11/2020 12:00:00 AM EDT ATHE NA ([facility]) Jeanette Gross, ELECTRICAL ELECTRONICS TECHNICIAN: 53874 [address], [place] [address], Ph. Attender: Jeanette Gross [facility] - [facility] 06/11/2020 12:00:00 AM EDT ATHE NA ([facility]) Jeanette Gross, ELECTRICAL ELECTRONICS TECHNICIAN: 74454 [address], [place] [address], Ph. Attender: Jeanette Gross [facility] - [facility] 06/11/2020 12:00:00 AM EDT ATHE NA ([facility]) Jeanette Allanclarkemitch Gross, ELECTRICAL ELECTRONICS TECHNICIAN: 34971 [address], [place] [address], Ph. Attender: Jeanette Gross [facility] - [facility] 06/11/2020 12:00:00 AM EDT ATHE NA ([facility]) Jeanette Gross, ELECTRICAL ELECTRONICS TECHNICIAN: [address]9977 [address], [place] [address], Ph. Attender: Jeanette Gross [facility] - [facility] 06/11/2020 12:00:00 AM EDT ATHE NA ([facility]) Jeanette Gross, ELECTRICAL ELECTRONICS TECHNICIAN: [address]2386 [address], [place] [address], Ph. Attender: Jeanette Gross [facility] 06/11/2020 12:00:00 AM EDT ATHE NA ([facility]) Jeanette Gross, ELECTRICAL ELECTRONICS TECHNICIAN: 21072 [address], [place] [address], Ph. Attender: Jeanette Gross [facility] 06/11/2020 12:00:00 AM EDT ATHE NA ([facility]) Jeanette Gross, ELECTRICAL ELECTRONICS TECHNICIAN: [address]5829 [address], [place] [address], Ph. Attender: Jeanette Gross [facility] - [facility] 06/11/2020 12:00:00 AM EDT ATHE NA ([facility]) Jeanette Gross, ELECTRICAL ELECTRONICS TECHNICIAN: 33097 [address], [place] [address], Ph. Attender: Jeanette Gross [facility] 06/11/2020 12:00:00 AM EDT ATHE NA ([facility]) Jeanette Gross, ELECTRICAL ELECTRONICS TECHNICIAN: 47867 [address], [address], [place] [address], Ph. Attender: Jeanette Gross [facility] - [facility] 06/11/2020 12:00:00 AM EDT ATHE NA ([facility]) Jeanette Gross, ELECTRICAL ELECTRONICS TECHNICIAN: 57819 [address], [address], [place] [address], Ph. Attender: Jeanette Gross [facility] - [facility] 06/11/2020 12:00:00 AM EDT ATHE NA ([facility]) Jeanette Gross, ELECTRICAL ELECTRONICS TECHNICIAN: [address]3046 [address], [address], [place] [address], Ph. Attender: Jeanette Gross [facility] - [facility] 06/11/2020 12:00:00 AM EDT ATHE NA ([facility]) Kj Rodriguez MD: 00109 [address], [address], [place] [address], Ph. Attender: Kj SHEEHAN - [facility] 05/21/2020 12:00:00 AM EDT AUGUSTIN ([facility]) Kj Rodriguez MD: 85915 [address], [address], [place] [address], Ph. Attender: Kj SHEEHAN - [facility] 05/21/2020 12:00:00 AM EDT AUGUSTIN ([facility]) Kj Rodriguez MD: 91501 [address], [address], [place] [address], Ph. Attender: Kj SHEEHAN - [facility] 05/21/2020 12:00:00 AM EDT AUGUSTIN ([facility]) Kj Rodriguez MD: 95066 [address], [address], [place] [address], Ph. Attender: Kj SHEEHAN - [facility] 05/21/2020 12:00:00 AM EDT AUGUSTIN ([facility]) Kj Rodriguez MD: 95326 [address], [address], [place] [address], Ph. Attender: Kj SHEEHAN - [facility] 05/21/2020 12:00:00 AM EDT AUGUSTIN ([facility]) Kj Rodriguez MD: 63551 [address], [address], [place] [address], Ph. Attender: Kj SHEEHAN - [facility] 05/21/2020 12:00:00 AM EDT AUGUSTIN ([facility]) Kj Rodriguez MD: 58561 [address], [address], [place] [address], Ph. Attender: Kj SHEEHAN - [facility] 05/21/2020 12:00:00 AM EDT AUGUSTIN ([facility]) Kj Rodriguez MD: 74509 [address], [address], [place] [address], Ph. Attender: Kj SHEEHAN - [facility] 05/21/2020 12:00:00 AM EDT AUGUSTIN ([facility]) Kj Rodriguez MD: 08081 [address], [address], [place] [address], Ph. Attender: Kj SHEEHAN - [facility] 05/21/2020 12:00:00 AM EDT AUGUSTIN ([facility]) Kj Rodriguez MD: 57980 [address], [address], [place] [address], Ph. Attender: Kj Rodriguez MD [place] - [facility] 05/21/2020 12:00:00 AM EDT AUGUSTIN ([facility]) Kj Rodriguez MD: 88933 [address], [address], [place] [address], Ph. Attender: Kj Rodriguez MD [place] - [facility] 05/21/2020 12:00:00 AM EDT AUGUSTIN ([facility]) Kj Rodriguez MD: 17952 [address], [address], [place] [address], Ph. Attender: Kj Rodriguez MD [place] - [facility] 05/21/2020 12:00:00 AM EDT AUGUSTIN ([facility]) Kj Rodriguez MD: 22741 [address], [address], [place] [address], Ph. Attender: Kj SHEEHAN - [facility] 05/21/2020 12:00:00 AM EDT AUGUSTIN ([facility]) Kj Rodriguez MD: 31511 [address], [address], [place] [address], Ph. Attender: Kj Rodriguez MD [place] - [facility] 05/21/2020 12:00:00 AM EDT AUGUSTIN ([facility]) Kj Rodriguez MD: 13004 [address], [address], [place] [address], Ph. Attender: Kj Rodriguez MD [place] - [facility] 05/21/2020 12:00:00 AM EDT AUGUSTIN ([facility]) Kj Rodriguez MD: 69936 [address], [address], [place] [address], Ph. Attender: Kj SHEEHAN - [facility] 05/21/2020 12:00:00 AM EDT AUGUSTIN ([facility]) Kj Rodriguez MD: 63801 [address], [address], [place] [address], Ph. Attender: Kj SHEEHAN - [facility] 05/21/2020 12:00:00 AM EDT AUGUSTIN ([facility]) Kj Rodriguez MD: 76781 [address], [address], [place] [address], Ph. Attender: Kj SHEEHAN - [facility] 05/21/2020 12:00:00 AM EDT AUGUSTIN ([facility]) Kj Rodriguez MD: 15043 [address], [address], [place] [address], Ph. Attender: Kj SHEEHAN - [facility] 05/21/2020 12:00:00 AM EDT AUGUSTIN ([facility]) Kj Rodriguez MD: 46618 [address], [address], [place] [address], Ph. Attender: Kj SHEEHAN - [facility] 05/21/2020 12:00:00 AM EDT AUGUSTIN ([facility]) Kj Rodriguez MD: 03449 [address], [address], [place] [address], Ph. Attender: Kj SHEEHAN - [facility] 05/21/2020 12:00:00 AM EDT AUGUSTIN ([facility]) Kj Rodriguez MD: 01531 [address], [address], [place] [address], Ph. Attender: Kj SHEEHAN - [facility] 05/21/2020 12:00:00 AM EDT AUGUSTIN ([facility]) Kj Rodriguez MD: 63385 [address], [address], [place] [address], Ph. Attender: Kj SHEEHAN - [facility] 05/21/2020 12:00:00 AM EDT AUGUSTIN ([facility] [facility]) Kj Rodriguez MD: [id number], [address], [place] [address], Ph. Attender: Kj Rodriguez MD [place] - [facility] 05/21/2020 12:00:00 AM EDT AUGUSTIN ([facility]) Kj Rodriguez MD: [id number], [address], [place] [address], Ph. Attender: Kj SHEEHAN - [facility] 05/21/2020 12:00:00 AM EDT AUGUSTIN ([facility]) Kj Rodriguez MD: [id number], [address], [place] [address], Ph. Attender: Kj SHEEHAN - [facility] 05/21/2020 12:00:00 AM EDT AUGUSTIN ([facility]) Kj Rodriguez MD: [id number], [address], [place] [address], Ph. Attender: Kj SHEEHAN - [facility] 05/21/2020 12:00:00 AM EDT AUGUSTIN ([facility]) Kj Rodriguez MD: [id number], [place] [address], Ph. Attender: Kj Rodriguez MD [place] - [facility] 05/21/2020 12:00:00 AM EDT AUGUSTIN ([facility]) Kj Rodriguez MD: [id number], [address], [place] [address], Ph. Attender: Kj Rodriguez MD [place] - [facility] 05/21/2020 12:00:00 AM EDT AUGUSTIN ([facility]) Kj Rodriguez MD: [id number], [facility] [place] [address], Ph. Attender: Kj Rodriguez MD [place] - [facility] 05/21/2020 12:00:00 AM EDT AUGUSTIN ([facility]) Jeanette Gross, ELECTRICAL ELECTRONICS TECHNICIAN: [address], [place] [address], Ph. Attender: Jeanette Gross [facility] 05/15/2020 12:00:00 AM EDT LYSSA DIGGS ([facility]) Jeanette Gross, ELECTRICAL ELECTRONICS TECHNICIAN: [address], [address], [place] [address], Ph. Attender: Jeanette Gross [facility] 05/15/2020 12:00:00 AM EDT LYSSA DIGGS ([facility]) Jeanette Gross, ELECTRICAL ELECTRONICS TECHNICIAN: [address], [place] [address], Ph. Attender: Jeanette Gross [facility] - [facility] 05/15/2020 12:00:00 AM EDT ATHE NA ([facility]) Jeanette Gross, ELECTRICAL ELECTRONICS TECHNICIAN: [address], [place] [address], Ph. Attender: Jeanette Gross [facility] - [facility] 05/15/2020 12:00:00 AM EDT ATHE NA ([facility]) Jeanette Gross, ELECTRICAL ELECTRONICS TECHNICIAN: [address], [place] [address], Ph. Attender: Jeanette Gross [facility] - [facility] 05/15/2020 12:00:00 AM EDT ATHE NA ([facility]) Jeanette Gross, ELECTRICAL ELECTRONICS TECHNICIAN: [address], [place] [address], Ph. Attender: Jeanette Gross [facility] - [facility] 05/15/2020 12:00:00 AM EDT ATHE NA ([facility]) Jeanette Gross, ELECTRICAL ELECTRONICS TECHNICIAN: [address], [place] [address], Ph. Attender: Jeanette Gross [facility] - [facility] 05/15/2020 12:00:00 AM EDT ATHE NA ([facility]) Jeanette Gross, ELECTRICAL ELECTRONICS TECHNICIAN: [address], [place] [address], Ph. Attender: Jeanette Gross [facility] - [facility] 05/15/2020 12:00:00 AM EDT ATHE NA ([facility]) Jeanette Allanafshaneder Gross, ELECTRICAL ELECTRONICS TECHNICIAN: [address], [address], [place] [address], Ph. Attender: Jeanette Gross [facility] - [facility] 05/15/2020 12:00:00 AM EDT ATHE NA ([facility]) Jeanette Gross, ELECTRICAL ELECTRONICS TECHNICIAN: [address], [place] [address], Ph. Attender: Jeanette Gross [facility] - [facility] 05/15/2020 12:00:00 AM EDT ATHE NA ([facility]) Jeanette Gross, ELECTRICAL ELECTRONICS TECHNICIAN: [address], [place] [address], Ph. Attender: Jeanette Gross [facility] 05/15/2020 12:00:00 AM EDT ATHE NA ([facility]) Jeanette Gross, ELECTRICAL ELECTRONICS TECHNICIAN: [address], [place] [address], Ph. Attender: Jeanette Gross [facility] - [facility] 05/15/2020 12:00:00 AM EDT ATHE NA ([facility]) Jeanette Gross, ELECTRICAL ELECTRONICS TECHNICIAN: [address], [address], [place] [address], Ph. Attender: Jeanette Gross [facility] - [facility] 05/15/2020 12:00:00 AM EDT ATHE NA ([facility]) Jeanette Gross, ELECTRICAL ELECTRONICS TECHNICIAN: [address], [place] [address], Ph. Attender: Jeanette Gross [facility] - [facility] 05/15/2020 12:00:00 AM EDT ATHE NA ([facility]) Jeanette Gross, ELECTRICAL ELECTRONICS TECHNICIAN: [address], [place] [address], Ph. Attender: Jeanette Gross [facility] - [facility] 05/15/2020 12:00:00 AM EDT ATHE NA ([facility]) Jeanette Gross, ELECTRICAL ELECTRONICS TECHNICIAN: [address], [place] [address], Ph. Attender: Jeanette Gross [facility] - [facility] 05/15/2020 12:00:00 AM EDT ATHE NA ([facility]) Jeanette Gross, ELECTRICAL ELECTRONICS TECHNICIAN: [address], [place] [address], Ph. Attender: Jeanette Gross [facility] - [facility] 05/15/2020 12:00:00 AM EDT ATHE NA ([facility]) Jeanette Gross, ELECTRICAL ELECTRONICS TECHNICIAN: [address], [place] [address], Ph. Attender: Jeanette Gross [facility] - [facility] 05/15/2020 12:00:00 AM EDT ATHE NA ([facility]) Jeanette Gross, ELECTRICAL ELECTRONICS TECHNICIAN: [address], [place] [address], Ph. Attender: Jeanette Gross [facility] - [facility] 05/15/2020 12:00:00 AM EDT ATHE NA ([facility]) Jeanette Gross, ELECTRICAL ELECTRONICS TECHNICIAN: [address], [place] [address], Ph. Attender: Jeanette Gross [facility] - [facility] 05/15/2020 12:00:00 AM EDT ATHE NA ([facility]) Jeanette Gross, ELECTRICAL ELECTRONICS TECHNICIAN: [address], [place] [address], Ph. Attender: Jeanette Gross [facility] - [facility] 05/15/2020 12:00:00 AM EDT ATHE NA ([facility]) Jeanette Gross, ELECTRICAL ELECTRONICS TECHNICIAN: [address], [place] [address], Ph. Attender: Jeanette Gross [facility] - [facility] 05/15/2020 12:00:00 AM EDT ATHE NA ([facility]) Jeanette Gross, ELECTRICAL ELECTRONICS TECHNICIAN: [address], [place] [address], Ph. Attender: Jeanette Gross [facility] - [facility] 05/15/2020 12:00:00 AM EDT ATHE NA ([facility]) Jeanette Gross, ELECTRICAL ELECTRONICS TECHNICIAN: [address], [place] [address], Ph. Attender: Jeanette Gross [facility] - [facility] 05/15/2020 12:00:00 AM EDT ATHE NA ([facility]) Jeanette Gross, ELECTRICAL ELECTRONICS TECHNICIAN: [address], [place] [address], Ph. Attender: Jeanette Gross [facility] - [facility] 05/15/2020 12:00:00 AM EDT ATHE NA ([facility]) Jeanette Gross, ELECTRICAL ELECTRONICS TECHNICIAN: [address], [address], [place] [address], Ph. Attender: Jeanette Gross [facility] - [facility] 05/15/2020 12:00:00 AM EDT ATHE NA ([facility]) Jeanette Gross, ELECTRICAL ELECTRONICS TECHNICIAN: [address], [address], [place] [address], Ph. Attender: Jeanette Gross [facility] - [facility] 05/15/2020 12:00:00 AM EDT ATHE NA ([facility]) Jeanette Gross, ELECTRICAL ELECTRONICS TECHNICIAN: [address], [place] [address], Ph. Attender: Jeanette Gross [facility] - [facility] 05/15/2020 12:00:00 AM EDT ATHE NA ([facility]) Jeanette Gross, ELECTRICAL ELECTRONICS TECHNICIAN: [address], [place] [address], Ph. Attender: Jeanette Gross [facility] - [facility] 05/15/2020 12:00:00 AM EDT ATHE NA ([facility]) Jeanette Gross, ELECTRICAL ELECTRONICS TECHNICIAN: [address], [address], [place] [address], Ph. Attender: Jeanette Gross [facility] - [facility] 05/15/2020 12:00:00 AM EDT ATHE NA ([facility]) Jeanette Gross, ELECTRICAL ELECTRONICS TECHNICIAN: [address], [place] [address], Ph. Attender: Jeanettemichelle Mayeselhamvasile [facility] - [facility] 05/15/2020 12:00:00 AM EDT ATHE NA ([facility]) Immunizations Vaccine Date Status Description Data Source(s) COVID-19, mRNA, LNP-S, PF, 100 mcg/0.5 mL dose 02/03/2021 06 :15:03 PM EDT completed .5 mL AUGUSTIN ([facility]) COVID-19 dose #2 given elsewhere Unspecified 02/03/2021 01:4 5:00 PM EDT completed eCW1 ([facility]) COVID-19 VACCINE Moderna 02/03/2021 12:00:00 AM EDT completed [facility] Vaccine Series Complete: YESThis Data wa s Submitted to [facility]. COVID-19, mRNA, LNP-S, PF, 100 mcg/0.5 mL dose 01/06/2021 06 :21:51 PM EDT completed .5 mL AUGUSTIN ([facility]) COVID-19, mRNA, LNP-S, PF, 100 mcg/0.5 mL dose 01/06/2021 06 :21:51 PM EDT completed .5 mL AUGUSTIN ([facility]) COVID-19 dose #1 given elsewhere Unspecified 01/06/2021 01:4 4:00 PM EDT completed eCW1 ([facility]) COVID-19 VACCINE Moderna 01/06/2021 12:00:00 AM EDT completed [facility] Vaccine Series Complete: NOThis Data was Submitted to [facility] [employer]. influenza, recombinant, quadrIvalent,injectable, prese rvative free 10/23/2020 02:34:00 PM EST completed eCW1 ([facility]) influenza, recombinant, quadrIvalent,injectable, prese rvative free 10/23/2020 02:34:00 PM EST completed eCW1 ([facility]) influenza, recombinant, quadrIvalent,injectable, prese rvative free 10/23/2020 02:34:00 PM EST completed eCW1 ([facility]) influenza, recombinant, quadrIvalent,injectable, prese rvative free 10/23/2020 02:34:00 PM EST completed eCW1 ([facility]) influenza, recombinant, quadrIvalent,injectable, prese rvative free 10/23/2020 02:34:00 PM EST completed eCW1 ([facility]) Medications Medication Brand Name Start Date Product [...] 4 HOURS NEEDED FOR COUGH SOLD: 04/20/2021 [facility] Fluconazole 150 MG Oral Tablet Fluconazole 150 MG 04/20/2021 12:00: 00 AM EDT 1.0 {tablet} active Fluconazole 150 MG [facility] Amoxicillin 500 MG / Clavulanate 125 MG Oral Tablet Amoxicillin-Pot Clavulanate 500-125 MG Amoxicillin-Pot Clavulanate 500-125 MG 04/20/2021 12:00:00 AM ED T 1.0 {tablet} active Amoxicillin-Pot Cla vulanate 500-125 MG eCW1 ([facility]) 50 mg 04/17/2021 12:00:00 AM EDT tablet 90 TAKE ONE TABLET BY MOUTH THREE TIMES A DAY NEEDED MAXIMUM DAILY DOSE = 3 TAKE ONE TABLET BY MOUTH THREE TIMES A DAY NEEDED MAXIMUM DAILY DOSE = 3 SOLD: 04/17/2021 [facility] gabapentin 800 MG Oral Tablet GABAPENTIN 04/17/2021 12:00:00 AM EDT ta blet 90 TAKE ONE TABLET BY MOUTH THREE TIMES A DAY TAKE ONE TABLET BY MOUTH THREE TIMES A DAY SOLD: 04/17/2021 [facility] gabapentin 800 MG Oral Tablet [...] 09/08/2020 12:00:00 AM EST ORAL active MEDENT ([facility], ) 10 mg 08/28/2020 12:00:00 [...] MAXIMUM DAILY DOSE = 2 SOLD: 07/25/2020 [facility] 40 mg 07/12/2020 12:00:00 AM [...] hfa 108 mcg/act aers AUGUSTIN ([facility]) naproxen 500 mg tabs completed naproxen 500 mg tabs AUGUSTIN ([facility]) tramadol hcl 50 mg tabs completed tramadol hcl 50 mg tabs AUGUSTIN ([facility]) 24 HR venlafaxine 75 MG Extended Release Oral Capsule venlafaxine ER 75 mg capsule,extended release 24 hr TAKE ONE CAPSULE BY MOUTH EVERY DAY WITH FOOD venlafaxine ER 75 mg capsule,extended release 24 hr TAKE ONE CAPSULE BY MOUTH EVERY DAY WITH FOOD completed 24 HR venlafaxine 75 MG Extended Release Oral Capsule AUGUSTIN ([facility]) Amoxicillin 500 MG / Clavulanate 125 MG Oral Tablet amoxicillin 500 mg-potassium clavulanate 125 mg tablet TAKE ONE TABLET BY MOUTH TWICE A DAY FOR 10 DAYS amoxicillin 500 mg-potassium clavulanate 125 mg tablet TAKE ONE TABLET BY MOUTH TWICE A DAY FOR 10 DAYS completed amoxicillin 500 MG / clavulanate 125 MG Oral Tablet AUGUSTIN ([facility]) paroxetine hydrochloride 10 mg tabs completed paroxetine hydrochloride 10 mg tabs AUGUSTIN ([facility]) paroxetine 10 mg tablet [id number] complet ed paroxetine hydrochloride 10 MG Oral Tablet AUGUSTIN ([facility]) Ketotifen 0.25 MG/ML Ophthalmic Solution ketotifen 0.025 % (0.035 %) eye drops INSTILL 1 DROP IN EACH EYE TWO TIMES A DAY DIRECTED ketotifen 0.025 % (0.035 %) eye drops INSTILL 1 DROP IN EACH EYE TWO TIMES A DAY DIRECTED completed ketotifen 0.25 MG/ML Ophthalmic Solution AUGUSTIN ([facility]) Naproxen 500 MG Oral Tablet naproxen 500 mg tablet naproxen 500 mg ta blet completed naproxen 500 MG Oral Tablet AUGUSTIN ([facility]) venlafaxine hydrochloride er 75 mg cp24 completed venlafaxine hydrochloride er 75 mg cp24 AUGUSTIN ([facility]) fluticasone propionate 50 mcg/actuation nasal spray,suspension [id number] completed fluticasone propionate 0.05 MG/ACTUAT Metered Dose Nasal [place] AUGUSTIN ([facility]) Naproxen 250 MG Oral Tablet naproxen 250 mg tablet 1 t ab as needed naproxen 250 mg tablet 1 tab as needed completed naproxen 250 MG Oral Tablet AUGUSTIN ([facility]) Baclofen 10 MG Oral Tablet baclofen 10 m g tablet TAKE ONE TABLET BY MOUTH THREE TIMES A DAY NEEDED baclofen 10 mg tablet TAKE ONE TABLET BY MOUTH THREE TIMES A DAY NEEDED completed baclof en 10 MG Oral Tablet AUGUSTIN ([facility]) albuterol sulfate hfa 108 mcg/act aers completed albuterol sulfate hfa 108 mcg/act aers AUGUSTIN ([facility]) hydroco/apap tab 5-325mg completed hydroco/apap tab 5-325mg AUGUSTIN ([facility]) Ketotifen 0.25 MG/ML Ophthalmic Solution ketotifen 0.025 % (0.035 %) eye drops INSTILL 1 DROP IN EACH EYE TWO TIMES A DAY DIRECTED ketotifen 0.025 % (0.035 %) eye drops INSTILL 1 DROP IN EACH EYE TWO TIMES A DAY DIRECTED completed ketotifen 0.25 MG/ML Ophthalmic Solution AUGUSTIN ([facility]) Baclofen 10 MG Oral Tablet baclofen 10 m g tablet TAKE ONE TABLET BY MOUTH THREE TIMES A DAY NEEDED baclofen 10 mg tablet TAKE ONE TABLET BY MOUTH THREE TIMES A DAY NEEDED completed baclof en 10 MG Oral Tablet AUGUSTIN ([facility]) ketotifen fumarate 0.025 % soln completed ketotifen fumarate 0.025 % soln AUGUSTIN ([facility]) naproxen 500 mg tabs completed naproxen 500 mg tabs AUGUSTIN ([facility]) Carisoprodol 350 MG Oral Tablet carisopr odol 350 mg tablet TAKE ONE TABLET BY MOUTH THREE TIMES A DAY NEEDED MAXIMUM DAILY DOSE 3 carisoprodol 350 mg tablet TAKE ONE TABLET BY MOUTH THREE TIMES A DAY NEEDED MAXIMUM DAILY DOSE 3 completed carisoprodol 350 MG Oral Tablet AUGUSTIN ([facility]) hydroco/apap tab 5-325mg completed hydroco/apap tab 5-325mg RAKE ([facility]) Flint Oil 1,000 mg capsule Take 1 capsule every day by oral r oute. [id number] 1 capsule(s) completed Flint Oil 1,000 mg capsule AUGUSTIN ([facility]) gabapentin 800 mg tabs completed gabapentin 800 mg tabs AUGUSTIN ([facility]) baclofen 10 mg tabs completed baclofen 10 mg tabs AUGUSTIN ([facility]) Carisoprodol 350 MG Oral Tablet carisopr odol 350 mg tablet TAKE ONE TABLET BY MOUTH THREE TIMES A DAY NEEDED MAXIMUM DAILY DOSE 3 carisoprodol 350 mg tablet TAKE ONE TABLET BY MOUTH THREE TIMES A DAY NEEDED MAXIMUM DAILY DOSE 3 completed carisoprodol 350 MG Oral Tablet AUGUSTIN ([facility]) latanoprost 0.005 % soln completed latanoprost 0.005 % soln AUGUSTIN ([facility]) lidoc/banop/mi ac SWISH AND SPIT WITH 10 ML FOUR TIMES A DAY NEEDED FOR MUCOSITIS completed lidoc/ banop/mi ac AUGUSTIN ([facility]) methylprednisolone dose pack 4 mg tbpk completed methylprednisolone dose pack 4 mg tbpk AUGUSTIN ([facility]) baclofen 10 mg tabs completed baclofen 10 mg tabs AUGUSTIN ([facility]) tramadol hcl 50 mg tabs completed tramadol hcl 50 mg tabs AUGUSTIN ([facility]) zonisamide 50 MG Oral Capsule zonisamide 50 mg capsule TAKE ONE CAPSULE BY MOUTH TWICE A DAY zonisamide 50 mg capsule TAKE ONE CAPSULE BY MOUTH TWICE A DAY completed zonisamide 50 MG Oral Capsule AUGUSTIN ([facility]) zonisamide 50 MG Oral Capsule zonisamide 50 mg capsule TAKE ONE CAPSULE BY MOUTH TWICE A DAY zonisamide 50 mg capsule TAKE ONE CAPSULE BY MOUTH TWICE A DAY completed zonisamide 50 MG Oral Capsule AUGUSTIN ([facility]) fluticasone propionate 50 mcg/act susp completed fluticasone propionate 50 mcg/act susp AUGUSTIN ([facility]) Amoxicillin 500 MG Oral Capsule amoxicillin 500 mg cap joe amoxicillin 500 mg capsule completed amoxicillin 50 0 MG Oral Capsule AUGUSTIN ([facility]) gabapentin 800 mg tabs completed gabapentin 800 mg tabs AUGUSTIN ([facility]) hydroco/apap tab 5-325mg completed hydroco/apap tab 5-325mg AUGUSTIN ([facility]) Lidocaine Hydrochloride 30 MG/ML Topical Cream lidocai ne HCl 3 % topical cream lidocaine HCl 3 % topical cream comple sonja lidocaine hydrochloride 30 MG/ML Topical Cream AUGUSTIN ([facility]) 24 HR venlafaxine 75 MG Extended Release Oral Capsule venlafaxine ER 75 mg capsule,extended release 24 hr TAKE ONE CAPSULE BY MOUTH EVERY DAY WITH FOOD venlafaxine ER 75 mg capsule,extended release 24 hr TAKE ONE CAPSULE BY MOUTH EVERY DAY WITH FOOD completed 24 HR venlafaxine 75 MG Extended Release Oral Capsule AUGUSTIN ([facility]) tramadol hcl 50 mg tabs completed tramadol hcl 50 mg tabs AUG[place]IN ([facility]) fluticasone propionate 50 mcg/act susp completed fluticasone propionate 50 mcg/act susp AUGUSTIN ([facility]) methylprednisolone dose pack 4 mg tbpk completed methylprednisolone dose pack 4 mg tbpk AUGUSTIN ([facility]) Omeprazole 40 MG Delayed Release Oral Ca psule omeprazole 40 mg capsule,delayed release TAKE 1 CAPSULE BY MOUTH 30 MINUTES BEFORE MORNING MEAL ONCE A DAY omeprazole 40 mg capsule,delayed release TAKE 1 CAPSULE BY MOUTH 30 MINUTES BEFORE MORNING MEAL ONCE A DAY complet ed omeprazole 40 MG Delayed Release Oral Capsule AUGUSTIN ([facility]) latanoprost 0.005 % soln completed latanoprost 0.005 % soln AUGUSTIN ([facility]) Ketotifen 0.25 MG/ML Ophthalmic Solution ketotifen 0.025 % (0.035 %) eye drops INSTILL 1 DROP IN EACH EYE TWO TIMES A DAY DIRECTED ketotifen 0.025 % (0.035 %) eye drops INSTILL 1 DROP IN EACH EYE TWO TIMES A DAY DIRECTED completed ketotifen 0.25 MG/ML Ophthalmic Solution AUGUSTIN ([facility]) venlafaxine hydrochloride er 75 mg cp24 completed venlafaxine hydrochloride er 75 mg cp24 RAKE ([facility]) fluticasone propionate 50 mcg/act susp completed fluticasone propionate 50 mcg/act susp RAKE ([facility]) ketotifen fumarate 0.025 % soln completed ketotifen fumarate 0.025 % soln RAKE ([facility]) Naproxen 500 MG Oral Tablet naproxen 500 mg tablet naproxen 500 mg ta blet completed naproxen 500 MG Oral Tablet AUGUSTIN ([facility]) Brimonidine tartrate 2 MG/ML Ophthalmic Solution brimonidine 0.2 % eye drops INSTILL 1 DROP INTO BOTH EYES TWICE A DAY brimonidine 0.2 % eye drops INSTILL 1 DROP INTO BOTH EYES TWICE A DAY comple sonja brimonidine tartrate 2 MG/ML Ophthalmic Solution RAKE ([facility]) methylprednisolone dose pack 4 mg tbpk completed methylprednisolone dose pack 4 mg tbpk RAKE ([facility]) gabapentin 800 mg tabs completed gabapentin 800 mg tabs RAKE ([facility]) tramadol hcl 50 mg tabs completed tramadol hcl 50 mg tabs RAKE ([facility]) baclofen 10 mg tabs completed baclofen 10 mg tabs AUGUSTIN ([facility]) Brimonidine tartrate 2 MG/ML Ophthalmic Solution brimonidine 0.2 % eye drops INSTILL 1 DROP INTO BOTH EYES TWICE A DAY brimonidine 0.2 % eye drops INSTILL 1 DROP INTO BOTH EYES TWICE A DAY comple sonja brimonidine tartrate 2 MG/ML Ophthalmic Solution AUGUSTIN ([facility]) baclofen 10 mg tabs completed baclofen 10 mg tabs AUGUSTIN ([facility]) venlafaxine hydrochloride er 75 mg cp24 completed venlafaxine hydrochloride er 75 mg cp24 RAKE ([facility]) ibuprofen 800 mg tabs completed ibuprofen 800 mg tabs [place] ([facility]) ibuprofen 800 mg tabs completed ibuprofen 800 mg tabs [place] ([facility]) Naproxen 250 MG Oral Tablet naproxen 250 mg tablet 1 t ab as needed naproxen 250 mg tablet 1 tab as needed completed naproxen 250 MG Oral Tablet [place] ([facility]) amoxicillin 500 mg caps completed amoxicillin 500 mg caps [place] ([facility]) Methocarbamol 750 MG Oral Tablet methoca rbamol 750 mg tablet TAKE ONE TABLET BY MOUTH THREE TIMES A DAY NEEDED methocarbamol 750 mg tablet TAKE ONE TAB LET BY MOUTH THREE TIMES A DAY NEEDED comp leted methocarbamol 750 MG Oral Tablet [place] ([facility]) methocarbamol 750 mg tabs compl eted methocarbamol 750 mg tabs [place] ([facility]) albuterol sulfate HFA 90 mcg/actuation a erosol inhaler USE 2 PUFFS BY MOUTH EVERY 4 HOURS NEEDED FOR COUGH [id number] com pleted [id number] 200 ACTUAT albuterol 0.09 MG/ACTUAT Metered Dose Inhaler [place] ([facility]) amoxicillin 500 mg caps completed amoxicillin 500 mg caps [place] ([facility]) hydroco/apap tab 5-325mg completed hydroco/apap tab 5-325mg [place] ([facility]) Carisoprodol 350 MG Oral Tablet carisopr odol 350 mg tablet TAKE ONE TABLET BY MOUTH THREE TIMES A DAY NEEDED MAXIMUM DAILY DOSE 3 carisoprodol 350 mg tablet TAKE ONE TABLET BY MOUTH THREE TIMES A DAY NEEDED MAXIMUM DAILY DOSE 3 completed carisoprodol 350 MG Oral Tablet [place] ([facility]) albuterol sulfate hfa 108 mcg/act aers completed albuterol sulfate hfa 108 mcg/act aers [place] ([facility]) gabapentin 800 mg tabs completed gabapentin 800 mg tabs [place] ([facility]) tramadol hcl 50 mg tabs completed tramadol hcl 50 mg tabs [place] ([facility]) latanoprost 0.005 % soln completed latanoprost 0.005 % soln [place] ([facility]) Carisoprodol 350 MG Oral Tablet carisopr odol 350 mg tablet TAKE ONE TABLET BY MOUTH THREE TIMES A DAY NEEDED MAXIMUM DAILY DOSE 3 carisoprodol 350 mg tablet TAKE ONE TABLET BY MOUTH THREE TIMES A DAY NEEDED MAXIMUM DAILY DOSE 3 completed carisoprodol 350 MG Oral Tablet [place] ([facility]) Lidocaine Hydrochloride 30 MG/ML Topical Cream lidocai ne HCl 3 % topical cream lidocaine HCl 3 % topical cream comple sonja lidocaine hydrochloride 30 MG/ML Topical Cream [place] ([facility]) albuterol sulfate hfa 108 mcg/act aers completed albuterol sulfate hfa 108 mcg/act aers [place] ([facility]) baclofen 10 mg tabs completed baclofen 10 mg tabs [place] ([facility]) fluconazole 150 mg tabs completed fluconazole 150 mg tabs [place] ([facility]) amoxicillin 500 mg caps completed amoxicillin 500 mg caps [place] ([facility]) naproxen 500 mg tabs completed naproxen 500 mg tabs [place] ([facility]) cetirizine hydrochloride 10 MG Oral Tabl et cetirizine 10 mg tablet 1 tab as needed cetirizine 10 mg tablet 1 tab as needed completed cetirizine hydrochloride 10 MG Oral Tablet [place] ([facility]) tramadol hcl 50 mg tabs completed tramadol hcl 50 mg tabs [place] ([facility]) Carisoprodol 350 MG Oral Tablet carisopr odol 350 mg tablet TAKE ONE TABLET BY MOUTH THREE TIMES A DAY NEEDED MAXIMUM DAILY DOSE 3 carisoprodol 350 mg tablet TAKE ONE TABLET BY MOUTH THREE TIMES A DAY NEEDED MAXIMUM DAILY DOSE 3 completed carisoprodol 350 MG Oral Tablet [place] ([facility]) Fluconazole 150 MG Oral Tablet fluconazole 150 mg tabl et fluconazole 150 mg tablet completed fluconazole 150 MG Oral Tablet [place] ([facility]) artificial tears 1.4 % soln com pleted artificial tears 1.4 % soln [place] ([facility]) cetirizine hydrochloride 10 MG Oral Tabl et cetirizine 10 mg tablet 1 tab as needed cetirizine 10 mg tablet 1 tab as needed completed cetirizine hydrochloride 10 MG Oral Tablet [place] ([facility]) gabapentin 800 mg tabs completed gabapentin 800 mg tabs [place] ([facility]) Brimonidine tartrate 2 MG/ML Ophthalmic Solution brimonidine 0.2 % eye drops INSTILL 1 DROP INTO BOTH EYES TWICE A DAY brimonidine 0.2 % eye drops INSTILL 1 DROP INTO BOTH EYES TWICE A DAY comple sonja brimonidine tartrate 2 MG/ML Ophthalmic Solution [place] ([facility]) amoxicillin 500 mg caps completed amoxicillin 500 mg caps [place] ([facility]) naproxen 500 mg tabs completed naproxen 500 mg tabs [place] ([facility]) methocarbamol 750 mg tabs compl eted methocarbamol 750 mg tabs [place] ([facility]) brimonidine tartrate 0.2 % soln completed brimonidine tartrate 0.2 % soln [place] ([facility]) gabapentin 800 mg tabs completed gabapentin 800 mg tabs [place] ([facility]) brimonidine tartrate 0.2 % soln completed brimonidine tartrate 0.2 % soln [place] ([facility]) Naproxen 250 MG Oral Tablet naproxen 250 mg tablet 1 t ab as needed naproxen 250 mg tablet 1 tab as needed completed naproxen 250 MG Oral Tablet [place] ([facility]) albuterol sulfate hfa 108 mcg/act aers completed albuterol sulfate hfa 108 mcg/act aers [place] ([facility]) Baclofen 10 MG Oral Tablet baclofen 10 m g tablet TAKE ONE TABLET BY MOUTH THREE TIMES A DAY NEEDED baclofen 10 mg tablet TAKE ONE TABLET BY MOUTH THREE TIMES A DAY NEEDED completed baclof en 10 MG Oral Tablet [place] ([facility]) latanoprost 0.005 % soln completed latanoprost 0.005 % soln [place] ([facility]) amoxicillin 500 mg caps completed amoxicillin 500 mg caps [place] ([facility]) Baclofen 10 MG Oral Tablet baclofen 10 m g tablet TAKE ONE TABLET BY MOUTH THREE TIMES A DAY NEEDED baclofen 10 mg tablet TAKE ONE TABLET BY MOUTH THREE TIMES A DAY NEEDED completed baclof en 10 MG Oral Tablet [place] ([facility]) zonisamide 50 MG Oral Capsule zonisamide 50 mg capsule TAKE ONE CAPSULE BY MOUTH TWICE A DAY zonisamide 50 mg capsule TAKE ONE CAPSULE BY MOUTH TWICE A DAY completed zonisamide 50 MG Oral Capsule [place] ([facility]) paroxetine 10 mg tablet [id number] complet ed paroxetine hydrochloride 10 MG Oral Tablet [place] ([facility]) latanoprost 0.005 % soln completed latanoprost 0.005 % soln [place] ([facility]) Naproxen 500 MG Oral Tablet naproxen 500 mg tablet naproxen 500 mg ta blet completed naproxen 500 MG Oral Tablet [place] ([facility]) ibuprofen 800 mg tabs completed ibuprofen 800 mg tabs [place] ([facility]) fluticasone propionate 50 mcg/act susp completed fluticasone propionate 50 mcg/act susp [place] ([facility]) paroxetine 10 mg tablet [id number] complet ed paroxetine hydrochloride 10 MG Oral Tablet [place] ([facility]) albuterol sulfate hfa 108 mcg/act aers completed albuterol sulfate hfa 108 mcg/act aers [place] ([facility]) latanoprost 0.005 % soln completed latanoprost 0.005 % soln [place] ([facility]) amoxicillin 500 mg caps completed amoxicillin 500 mg caps [place] ([facility]) Carisoprodol 350 MG Oral Tablet carisopr odol 350 mg tablet TAKE ONE TABLET BY MOUTH THREE TIMES A DAY NEEDED MAXIMUM DAILY DOSE 3 carisoprodol 350 mg tablet TAKE ONE TABLET BY MOUTH THREE TIMES A DAY NEEDED MAXIMUM DAILY DOSE 3 completed carisoprodol 350 MG Oral Tablet [place] ([facility]) Ibuprofen 600 MG Oral Tablet ibuprofen 600 mg tablet ibuprofen 6 00 mg tablet completed ibuprofen 600 MG Oral Tablet [place] ([facility]) methocarbamol 750 mg tabs compl eted methocarbamol 750 mg tabs [place] ([facility]) Brimonidine tartrate 2 MG/ML Ophthalmic Solution brimonidine 0.2 % eye drops INSTILL 1 DROP INTO BOTH EYES TWICE A DAY brimonidine 0.2 % eye drops INSTILL 1 DROP INTO BOTH EYES TWICE A DAY yang romeroimonidine tartrate 2 MG/ML Ophthalmic Solution [place] ([facility]) cetirizine hydrochloride 10 MG Oral Tabl et cetirizine 10 mg tablet 1 tab as needed cetirizine 10 mg tablet 1 tab as needed completed cetirizine hydrochloride 10 MG Oral Tablet [place] ([facility]) amoxicillin 500 mg caps completed amoxicillin 500 mg caps [place] ([facility]) Lidocaine Hydrochloride 30 MG/ML Topical Cream lidocai ne HCl 3 % topical cream lidocaine HCl 3 % topical cream comple sonja lidocaine hydrochloride 30 MG/ML Topical Cream [place] ([facility]) brimonidine tartrate 0.2 % soln completed brimonidine tartrate 0.2 % soln [place] ([facility]) albuterol sulfate hfa 108 mcg/act aers completed albuterol sulfate hfa 108 mcg/act aers [place] ([facility]) fluconazole 150 mg tabs completed fluconazole 150 mg tabs [place] ([facility]) ketotifen fumarate 0.025 % soln completed ketotifen fumarate 0.025 % soln [place] ([facility]) fluticasone propionate 50 mcg/actuation nasal spray,suspension [id number] completed fluticasone propionate 0.05 MG/ACTUAT Metered Dose Nasal [place] ([facility]) albuterol sulfate HFA 90 mcg/actuation a erosol inhaler USE 2 PUFFS BY MOUTH EVERY 4 HOURS NEEDED FOR COUGH [id number] com pleted [id number] 200 ACTUAT albuterol 0.09 MG/ACTUAT Metered Dose Inhaler [place] ([facility]) Ketotifen 0.25 MG/ML Ophthalmic Solution ketotifen 0.025 % (0.035 %) eye drops INSTILL 1 DROP IN EACH EYE TWO TIMES A DAY DIRECTED ketotifen 0.025 % (0.035 %) eye drops INSTILL 1 DROP IN EACH EYE TWO TIMES A DAY DIRECTED completed ketotifen 0.25 MG/ML Ophthalmic Solution [place] ([facility]) Flint Oil 1,000 mg capsule Take 1 capsule every day by oral r oute. [id number] 1 capsule(s) completed Flint Oil 1,000 mg capsule [place] ([facility]) Lidocaine Hydrochloride 30 MG/ML Topical Cream lidocai ne HCl 3 % topical cream lidocaine HCl 3 % topical cream comple sonja lidocaine hydrochloride 30 MG/ML Topical Cream [place] ([facility]) Baclofen 10 MG Oral Tablet baclofen 10 m g tablet TAKE ONE TABLET BY MOUTH THREE TIMES A DAY NEEDED baclofen 10 mg tablet TAKE ONE TABLET BY MOUTH THREE TIMES A DAY NEEDED completed baclof en 10 MG Oral Tablet [place] ([facility]) gabapentin 800 mg tabs completed gabapentin 800 mg tabs [place] ([facility]) 24 HR venlafaxine 75 MG Extended Release Oral Capsule venlafaxine ER 75 mg capsule,extended release 24 hr TAKE ONE CAPSULE BY MOUTH EVERY DAY WITH FOOD venlafaxine ER 75 mg capsule,extended release 24 hr TAKE ONE CAPSULE BY MOUTH EVERY DAY WITH FOOD completed 24 HR venlafaxine 75 MG Extended Release Oral Capsule [place] ([facility]) zonisamide 50 MG Oral Capsule zonisamide 50 mg capsule TAKE ONE CAPSULE BY MOUTH TWICE A DAY zonisamide 50 mg capsule TAKE ONE CAPSULE BY MOUTH TWICE A DAY completed zonisamide 50 MG Oral Capsule [place] ([facility]) cetirizine hydrochloride 10 MG Oral Tabl et cetirizine 10 mg tablet 1 tab as needed cetirizine 10 mg tablet 1 tab as needed completed cetirizine hydrochloride 10 MG Oral Tablet [place] ([facility]) baclofen 10 mg tabs completed baclofen 10 mg tabs [place] ([facility]) methocarbamol 750 mg tabs compl eted methocarbamol 750 mg tabs [place] ([facility]) baclofen 10 mg tabs completed baclofen 10 mg tabs [place] ([facility]) fluticasone propionate 50 mcg/act susp completed fluticasone propionate 50 mcg/act susp [place] ([facility]) cetirizine hydrochloride 10 MG Oral Tabl et cetirizine 10 mg tablet 1 tab as needed cetirizine 10 mg tablet 1 tab as needed completed cetirizine hydrochloride 10 MG Oral Tablet [place] ([facility]) ibuprofen 800 mg tabs completed ibuprofen 800 mg tabs [place] ([facility]) venlafaxine hydrochloride er 75 mg cp24 completed venlafaxine hydrochloride er 75 mg cp24 [place] ([facility]) fluconazole 150 mg tabs completed fluconazole 150 mg tabs [place] ([facility]) hydroco/apap tab 5-325mg completed hydroco/apap tab 5-325mg [place] ([facility]) hydroco/apap tab 5-325mg completed hydroco/apap tab 5-325mg [place] ([facility]) Carisoprodol 350 MG Oral Tablet carisopr odol 350 mg tablet TAKE ONE TABLET BY MOUTH THREE TIMES A DAY NEEDED MAXIMUM DAILY DOSE 3 carisoprodol 350 mg tablet TAKE ONE TABLET BY MOUTH THREE TIMES A DAY NEEDED MAXIMUM DAILY DOSE 3 completed carisoprodol 350 MG Oral Tablet [place] ([facility]) Lorazepam 1 MG Oral Tablet lorazepam 1 mg tablet lorazepam 1 mg tablet completed lorazepam 1 MG Oral Table t [place] ([facility]) lidoc/banop/mi ac SWISH AND SPIT WITH 10 ML FOUR TIMES A DAY NEEDED FOR MUCOSITIS completed lidoc/ banop/mi ac [place] ([facility]) fluticasone propionate 50 mcg/act susp completed fluticasone propionate 50 mcg/act susp [place] ([facility]) fluticasone propionate 50 mcg/act susp completed fluticasone propionate 50 mcg/act susp [place] ([facility]) Ketotifen 0.25 MG/ML Ophthalmic Solution ketotifen 0.025 % (0.035 %) eye drops INSTILL 1 DROP IN EACH EYE TWO TIMES A DAY DIRECTED ketotifen 0.025 % (0.035 %) eye drops INSTILL 1 DROP IN EACH EYE TWO TIMES A DAY DIRECTED completed ketotifen 0.25 MG/ML Ophthalmic Solution [place] ([facility]) paroxetine 10 mg tablet [id number] complet ed paroxetine hydrochloride 10 MG Oral Tablet [place] ([facility]) venlafaxine hydrochloride er 75 mg cp24 completed venlafaxine hydrochloride er 75 mg cp24 [place] ([facility]) brimonidine tartrate 0.2 % soln completed brimonidine tartrate 0.2 % soln [place] ([facility]) fluticasone propionate 50 mcg/act susp completed fluticasone propionate 50 mcg/act susp [place] ([facility]) methylprednisolone dose pack 4 mg tbpk completed methylprednisolone dose pack 4 mg tbpk [place] ([facility]) fluticasone propionate 50 mcg/act susp completed fluticasone propionate 50 mcg/act susp [place] ([facility]) methocarbamol 750 mg tabs compl eted methocarbamol 750 mg tabs [place] ([facility]) Lidocaine Hydrochloride 30 MG/ML Topical Cream lidocai ne HCl 3 % topical cream lidocaine HCl 3 % topical cream comple sonja lidocaine hydrochloride 30 MG/ML Topical Cream [place] ([facility]) Carisoprodol 350 MG Oral Tablet carisopr odol 350 mg tablet TAKE ONE TABLET BY MOUTH THREE TIMES A DAY NEEDED MAXIMUM DAILY DOSE 3 carisoprodol 350 mg tablet TAKE ONE TABLET BY MOUTH THREE TIMES A DAY NEEDED MAXIMUM DAILY DOSE 3 completed carisoprodol 350 MG Oral Tablet [place] ([facility]) Naproxen 250 MG Oral Tablet naproxen 250 mg tablet 1 t ab as needed naproxen 250 mg tablet 1 tab as needed completed naproxen 250 MG Oral Tablet [place] ([facility]) albuterol sulfate HFA 90 mcg/actuation a erosol inhaler USE 2 PUFFS BY MOUTH EVERY 4 HOURS NEEDED FOR COUGH [id number] com pleted [id number] 200 ACTUAT albuterol 0.09 MG/ACTUAT Metered Dose Inhaler [place] ([facility]) fluconazole 150 mg tabs completed fluconazole 150 mg tabs [place] ([facility]) paroxetine hydrochloride 10 mg tabs completed paroxetine hydrochloride 10 mg tabs [place] ([facility]) ibuprofen 800 mg tabs completed ibuprofen 800 mg tabs [place] ([facility]) Amoxicillin 500 MG Oral Capsule amoxicillin 500 mg cap joe amoxicillin 500 mg capsule completed amoxicillin 50 0 MG Oral Capsule [place] ([facility]) methocarbamol 750 mg tabs compl eted methocarbamol 750 mg tabs [place] ([facility]) Ibuprofen 800 MG Oral Tablet ibuprofen 800 mg tablet ibuprofen 8 00 mg tablet completed ibuprofen 800 MG Oral Tablet [place] ([facility]) latanoprost 0.005 % soln completed latanoprost 0.005 % soln [place] ([facility]) Baclofen 10 MG Oral Tablet baclofen 10 m g tablet TAKE ONE TABLET BY MOUTH THREE TIMES A DAY NEEDED baclofen 10 mg tablet TAKE ONE TABLET BY MOUTH THREE TIMES A DAY NEEDED completed baclof en 10 MG Oral Tablet [place] ([facility]) fluticasone propionate 50 mcg/actuation nasal spray,suspension [id number] completed fluticasone propionate 0.05 MG/ACTUAT Metered Dose Nasal [place] ([facility]) lidoc/banop/mi ac SWISH AND SPIT WITH 10 ML FOUR TIMES A DAY NEEDED FOR MUCOSITIS completed lidoc/ banop/mi ac [place] ([facility]) Lidocaine Hydrochloride 30 MG/ML Topical Cream lidocai ne HCl 3 % topical cream lidocaine HCl 3 % topical cream comple sonja lidocaine hydrochloride 30 MG/ML Topical Cream [place] ([facility]) artificial tears 1.4 % soln com pleted artificial tears 1.4 % soln [place] ([facility]) fluticasone propionate 50 mcg/actuation nasal spray,suspension [id number] completed fluticasone propionate 0.05 MG/ACTUAT Metered Dose Nasal [place] ([facility]) Amoxicillin 500 MG Oral Capsule amoxicillin 500 mg cap joe amoxicillin 500 mg capsule completed amoxicillin 50 0 MG Oral Capsule [place] ([facility]) baclofen 10 mg tabs completed baclofen 10 mg tabs [place] ([facility]) latanoprost 0.005 % soln completed latanoprost 0.005 % soln [place] ([facility]) hydroco/apap tab 5-325mg completed hydroco/apap tab 5-325mg [place] ([facility]) baclofen 10 mg tabs completed baclofen 10 mg tabs [place] ([facility]) Omeprazole 40 MG Delayed Release Oral Ca psule omeprazole 40 mg capsule,delayed release TAKE 1 CAPSULE BY MOUTH 30 MINUTES BEFORE MORNING MEAL ONCE A DAY omeprazole 40 mg capsule,delayed release TAKE 1 CAPSULE BY MOUTH 30 MINUTES BEFORE MORNING MEAL ONCE A DAY complet ed omeprazole 40 MG Delayed Release Oral Capsule [place] ([facility]) paroxetine 10 mg tablet [id number] complet ed paroxetine hydrochloride 10 MG Oral Tablet [place] ([facility]) brimonidine tartrate 0.2 % soln completed brimonidine tartrate 0.2 % soln [place] ([facility]) paroxetine hydrochloride 10 mg tabs completed paroxetine hydrochloride 10 mg tabs [place] ([facility]) tramadol hcl 50 mg tabs completed tramadol hcl 50 mg tabs [place] ([facility]) fluconazole 150 mg tabs completed fluconazole 150 mg tabs [place] ([facility]) Amoxicillin 500 MG Oral Capsule amoxicillin 500 mg cap joe amoxicillin 500 mg capsule completed amoxicillin 50 0 MG Oral Capsule [place] ([facility]) albuterol sulfate hfa 108 mcg/act aers completed albuterol sulfate hfa 108 mcg/act aers [place] ([facility]) zonisamide 50 MG Oral Capsule zonisamide 50 mg capsule TAKE ONE CAPSULE BY MOUTH TWICE A DAY zonisamide 50 mg capsule TAKE ONE CAPSULE BY MOUTH TWICE A DAY completed zonisamide 50 MG Oral Capsule [place] ([facility]) paroxetine hydrochloride 10 mg tabs completed paroxetine hydrochloride 10 mg tabs [place] ([facility]) fluticasone propionate 50 mcg/act susp completed fluticasone propionate 50 mcg/act susp [place] ([facility]) Flint Oil 1,000 mg capsule Take 1 capsule every day by oral r oute. [id number] 1 capsule(s) completed Flint Oil 1,000 mg capsule [place] ([facility]) Brimonidine tartrate 2 MG/ML Ophthalmic Solution brimonidine 0.2 % eye drops INSTILL 1 DROP INTO BOTH EYES TWICE A DAY brimonidine 0.2 % eye drops INSTILL 1 DROP INTO BOTH EYES TWICE A DAY comple sonja brimonidine tartrate 2 MG/ML Ophthalmic Solution [place] ([facility]) Ibuprofen 600 MG Oral Tablet ibuprofen 600 mg tablet ibuprofen 6 00 mg tablet completed ibuprofen 600 MG Oral Tablet [place] ([facility]) tramadol hcl 50 mg tabs completed tramadol hcl 50 mg tabs [place] ([facility]) methylprednisolone dose pack 4 mg tbpk completed methylprednisolone dose pack 4 mg tbpk [place] ([facility]) Ketotifen 0.25 MG/ML Ophthalmic Solution ketotifen 0.025 % (0.035 %) eye drops INSTILL 1 DROP IN EACH EYE TWO TIMES A DAY DIRECTED ketotifen 0.025 % (0.035 %) eye drops INSTILL 1 DROP IN EACH EYE TWO TIMES A DAY DIRECTED completed ketotifen 0.25 MG/ML Ophthalmic Solution [place] ([facility]) Lidocaine Hydrochloride 30 MG/ML Topical Cream lidocai ne HCl 3 % topical cream lidocaine HCl 3 % topical cream comple sonja lidocaine hydrochloride 30 MG/ML Topical Cream [place] ([facility]) tramadol hcl 50 mg tabs completed tramadol hcl 50 mg tabs [place] ([facility]) Naproxen 500 MG Oral Tablet naproxen 500 mg tablet naproxen 500 mg ta blet completed naproxen 500 MG Oral Tablet [place] ([facility]) brimonidine tartrate 0.2 % soln completed brimonidine tartrate 0.2 % soln [place] ([facility]) amoxicillin 500 mg caps completed amoxicillin 500 mg caps [place] ([facility]) fluticasone propionate 50 mcg/act susp completed fluticasone propionate 50 mcg/act susp [place] ([facility]) fluconazole 150 mg tabs completed fluconazole 150 mg tabs [place] ([facility]) Amoxicillin 500 MG Oral Capsule amoxicillin 500 mg cap joe amoxicillin 500 mg capsule completed amoxicillin 50 0 MG Oral Capsule [place] ([facility]) brimonidine tartrate 0.2 % soln completed brimonidine tartrate 0.2 % soln [place] ([facility]) Amoxicillin 500 MG Oral Capsule amoxicillin 500 mg cap joe amoxicillin 500 mg capsule completed amoxicillin 50 0 MG Oral Capsule [place] ([facility]) methocarbamol 750 mg tabs compl eted methocarbamol 750 mg tabs [place] ([facility]) baclofen 10 mg tabs completed baclofen 10 mg tabs [place] ([facility]) Lidocaine Hydrochloride 30 MG/ML Topical Cream lidocai ne HCl 3 % topical cream lidocaine HCl 3 % topical cream comple sonja lidocaine hydrochloride 30 MG/ML Topical Cream [place] ([facility]) gabapentin 800 mg tabs completed gabapentin 800 mg tabs [place] ([facility]) Omeprazole 40 MG Delayed Release Oral Ca psule omeprazole 40 mg capsule,delayed release TAKE 1 CAPSULE BY MOUTH 30 MINUTES BEFORE MORNING MEAL ONCE A DAY omeprazole 40 mg capsule,delayed release TAKE 1 CAPSULE BY MOUTH 30 MINUTES BEFORE MORNING MEAL ONCE A DAY complet ed omeprazole 40 MG Delayed Release Oral Capsule [place] ([facility]) paroxetine 10 mg tablet [id number] complet ed paroxetine hydrochloride 10 MG Oral Tablet [place] ([facility]) Amoxicillin 500 MG Oral Capsule amoxicillin 500 mg cap joe amoxicillin 500 mg capsule completed amoxicillin 50 0 MG Oral Capsule [place] ([facility]) Lorazepam 1 MG Oral Tablet lorazepam 1 mg tablet lorazepam 1 mg tablet completed lorazepam 1 MG Oral Table t [place] ([facility]) brimonidine tartrate 0.2 % soln completed brimonidine tartrate 0.2 % soln [place] ([facility]) baclofen 10 mg tabs completed baclofen 10 mg tabs [place] ([facility]) methylprednisolone dose pack 4 mg tbpk completed methylprednisolone dose pack 4 mg tbpk [place] ([facility]) Ketotifen 0.25 MG/ML Ophthalmic Solution ketotifen 0.025 % (0.035 %) eye drops INSTILL 1 DROP IN EACH EYE TWO TIMES A DAY DIRECTED ketotifen 0.025 % (0.035 %) eye drops INSTILL 1 DROP IN EACH EYE TWO TIMES A DAY DIRECTED completed ketotifen 0.25 MG/ML Ophthalmic Solution [place] ([facility]) naproxen 500 mg tabs completed naproxen 500 mg tabs [place] ([facility]) Carisoprodol 350 MG Oral Tablet carisopr odol 350 mg tablet TAKE ONE TABLET BY MOUTH THREE TIMES A DAY NEEDED MAXIMUM DAILY DOSE 3 carisoprodol 350 mg tablet TAKE ONE TABLET BY MOUTH THREE TIMES A DAY NEEDED MAXIMUM DAILY DOSE 3 completed carisoprodol 350 MG Oral Tablet [place] ([facility]) Fluconazole 150 MG Oral Tablet fluconazole 150 mg tabl et fluconazole 150 mg tablet completed fluconazole 150 MG Oral Tablet [place] ([facility]) brimonidine tartrate 0.2 % soln completed brimonidine tartrate 0.2 % soln [place] ([facility]) gabapentin 800 mg tabs completed gabapentin 800 mg tabs [place] ([facility]) Lidocaine Hydrochloride 30 MG/ML Topical Cream lidocai ne HCl 3 % topical cream lidocaine HCl 3 % topical cream comple sonja lidocaine hydrochloride 30 MG/ML Topical Cream [place] ([facility]) Ibuprofen 600 MG Oral Tablet ibuprofen 600 mg tablet ibuprofen 6 00 mg tablet completed ibuprofen 600 MG Oral Tablet [place] ([facility]) Naproxen 250 MG Oral Tablet naproxen 250 mg tablet 1 t ab as needed naproxen 250 mg tablet 1 tab as needed completed naproxen 250 MG Oral Tablet [place] ([facility]) amoxicillin 500 mg caps completed amoxicillin 500 mg caps [place] ([facility]) Amoxicillin 500 MG Oral Capsule amoxicillin 500 mg cap joe amoxicillin 500 mg capsule completed amoxicillin 50 0 MG Oral Capsule [place] ([facility]) fluticasone propionate 50 mcg/actuation nasal spray,suspension [id number] completed fluticasone propionate 0.05 MG/ACTUAT Metered Dose Nasal [place] ([facility]) ibuprofen 800 mg tabs completed ibuprofen 800 mg tabs [place] ([facility]) Baclofen 10 MG Oral Tablet baclofen 10 m g tablet TAKE ONE TABLET BY MOUTH THREE TIMES A DAY NEEDED baclofen 10 mg tablet TAKE ONE TABLET BY MOUTH THREE TIMES A DAY NEEDED completed baclof en 10 MG Oral Tablet [place] ([facility]) ibuprofen 800 mg tabs completed ibuprofen 800 mg tabs [place] ([facility]) ketotifen fumarate 0.025 % soln completed ketotifen fumarate 0.025 % soln [place] ([facility]) methocarbamol 750 mg tabs compl eted methocarbamol 750 mg tabs [place] ([facility]) naproxen 500 mg tabs completed naproxen 500 mg tabs [place] ([facility]) venlafaxine hydrochloride er 75 mg cp24 completed venlafaxine hydrochloride er 75 mg cp24 [place] ([facility]) fluticasone propionate 50 mcg/act susp completed fluticasone propionate 50 mcg/act susp [place] ([facility]) baclofen 10 mg tabs completed baclofen 10 mg tabs [place] ([facility]) naproxen 500 mg tabs completed naproxen 500 mg tabs [place] ([facility]) latanoprost 0.005 % soln completed latanoprost 0.005 % soln [place] ([facility]) latanoprost 0.005 % soln completed latanoprost 0.005 % soln [place] ([facility]) tramadol hcl 50 mg tabs completed tramadol hcl 50 mg tabs [place] ([facility]) methocarbamol 750 mg tabs compl eted methocarbamol 750 mg tabs [place] ([facility]) amoxicillin 500 mg caps completed amoxicillin 500 mg caps [place] ([facility]) Naproxen 500 MG Oral Tablet naproxen 500 mg tablet naproxen 500 mg ta blet completed naproxen 500 MG Oral Tablet [place] ([facility]) Ketotifen 0.25 MG/ML Ophthalmic Solution ketotifen 0.025 % (0.035 %) eye drops INSTILL 1 DROP IN EACH EYE TWO TIMES A DAY DIRECTED ketotifen 0.025 % (0.035 %) eye drops INSTILL 1 DROP IN EACH EYE TWO TIMES A DAY DIRECTED completed ketotifen 0.25 MG/ML Ophthalmic Solution [place] ([facility]) Amoxicillin 500 MG Oral Capsule amoxicillin 500 mg cap joe amoxicillin 500 mg capsule completed amoxicillin 50 0 MG Oral Capsule [place] ([facility]) Lorazepam 1 MG Oral Tablet lorazepam 1 mg tablet lorazepam 1 mg tablet completed lorazepam 1 MG Oral Table t [place] ([facility]) fluticasone propionate 50 mcg/actuation nasal spray,suspension [id number] completed fluticasone propionate 0.05 MG/ACTUAT Metered Dose Nasal [place] ([facility]) Naproxen 250 MG Oral Tablet naproxen 250 mg tablet 1 t ab as needed naproxen 250 mg tablet 1 tab as needed completed naproxen 250 MG Oral Tablet [place] ([facility]) ibuprofen 800 mg tabs completed ibuprofen 800 mg tabs [place] ([facility]) Naproxen 500 MG Oral Tablet naproxen 500 mg tablet naproxen 500 mg ta blet completed naproxen 500 MG Oral Tablet [place] ([facility]) Naproxen 250 MG Oral Tablet naproxen 250 mg tablet 1 t ab as needed naproxen 250 mg tablet 1 tab as needed completed naproxen 250 MG Oral Tablet [place] ([facility]) methocarbamol 750 mg tabs compl eted methocarbamol 750 mg tabs [place] ([facility]) cetirizine hydrochloride 10 MG Oral Tabl et cetirizine 10 mg tablet 1 tab as needed cetirizine 10 mg tablet 1 tab as needed completed cetirizine hydrochloride 10 MG Oral Tablet [place] ([facility]) fluticasone propionate 50 mcg/actuation nasal spray,suspension [id number] completed fluticasone propionate 0.05 MG/ACTUAT Metered Dose Nasal [place] ([facility]) Lidocaine Hydrochloride 30 MG/ML Topical Cream lidocai ne HCl 3 % topical cream lidocaine HCl 3 % topical cream comple sonja lidocaine hydrochloride 30 MG/ML Topical Cream [place] ([facility]) 24 HR venlafaxine 75 MG Extended Release Oral Capsule venlafaxine ER 75 mg capsule,extended release 24 hr TAKE ONE CAPSULE BY MOUTH EVERY DAY WITH FOOD venlafaxine ER 75 mg capsule,extended release 24 hr TAKE ONE CAPSULE BY MOUTH EVERY DAY WITH FOOD completed 24 HR venlafaxine 75 MG Extended Release Oral Capsule [place] ([facility]) amoxicillin 500 mg caps completed amoxicillin 500 mg caps [place] ([facility]) Lorazepam 1 MG Oral Tablet lorazepam 1 mg tablet lorazepam 1 mg tablet completed lorazepam 1 MG Oral Table t [place] ([facility]) baclofen 10 mg tabs completed baclofen 10 mg tabs [place] ([facility]) 24 HR venlafaxine 75 MG Extended Release Oral Capsule venlafaxine ER 75 mg capsule,extended release 24 hr TAKE ONE CAPSULE BY MOUTH EVERY DAY WITH FOOD venlafaxine ER 75 mg capsule,extended release 24 hr TAKE ONE CAPSULE BY MOUTH EVERY DAY WITH FOOD completed 24 HR venlafaxine 75 MG Extended Release Oral Capsule [place] ([facility]) gabapentin 800 mg tabs completed gabapentin 800 mg tabs [place] ([facility]) 24 HR venlafaxine 75 MG Extended Release Oral Capsule venlafaxine ER 75 mg capsule,extended release 24 hr TAKE ONE CAPSULE BY MOUTH EVERY DAY WITH FOOD venlafaxine ER 75 mg capsule,extended release 24 hr TAKE ONE CAPSULE BY MOUTH EVERY DAY WITH FOOD completed 24 HR venlafaxine 75 MG Extended Release Oral Capsule [place] ([facility]) brimonidine tartrate 0.2 % soln completed brimonidine tartrate 0.2 % soln [place] ([facility]) ibuprofen 800 mg tabs completed ibuprofen 800 mg tabs [place] ([facility]) hydroco/apap tab 5-325mg completed hydroco/apap tab 5-325mg [place] ([facility]) Lidocaine Hydrochloride 30 MG/ML Topical Cream lidocai ne HCl 3 % topical cream lidocaine HCl 3 % topical cream comple sonja lidocaine hydrochloride 30 MG/ML Topical Cream [place] ([facility]) gabapentin 800 mg tabs completed gabapentin 800 mg tabs [place] ([facility]) ibuprofen 800 mg tabs completed ibuprofen 800 mg tabs [place] ([facility]) fluticasone propionate 50 mcg/act susp completed fluticasone propionate 50 mcg/act susp [place] ([facility]) Amoxicillin 500 MG Oral Capsule amoxicillin 500 mg cap joe amoxicillin 500 mg capsule completed amoxicillin 50 0 MG Oral Capsule [place] ([facility]) ibuprofen 800 mg tabs completed ibuprofen 800 mg tabs [place] ([facility]) amoxicillin 500 mg caps completed amoxicillin 500 mg caps [place] ([facility]) methocarbamol 750 mg tabs compl eted methocarbamol 750 mg tabs [place] ([facility]) fluticasone propionate 50 mcg/act susp completed fluticasone propionate 50 mcg/act susp [place] ([facility]) Lidocaine Hydrochloride 30 MG/ML Topical Cream lidocai ne HCl 3 % topical cream lidocaine HCl 3 % topical cream comple sonja lidocaine hydrochloride 30 MG/ML Topical Cream [place] ([facility]) methylprednisolone dose pack 4 mg tbpk completed methylprednisolone dose pack 4 mg tbpk [place] ([facility]) fluticasone propionate 50 mcg/act susp completed fluticasone propionate 50 mcg/act susp [place] ([facility]) brimonidine tartrate 0.2 % soln completed brimonidine tartrate 0.2 % soln [place] ([facility]) ibuprofen 800 mg tabs completed ibuprofen 800 mg tabs [place] ([facility]) amoxicillin 500 mg caps completed amoxicillin 500 mg caps [place] ([facility]) brimonidine tartrate 0.2 % soln completed brimonidine tartrate 0.2 % soln [place] ([facility]) gabapentin 800 mg tabs completed gabapentin 800 mg tabs [place] ([facility]) latanoprost 0.005 % soln completed latanoprost 0.005 % soln [place] ([facility]) tramadol hcl 50 mg tabs completed tramadol hcl 50 mg tabs [place] ([facility]) tramadol hcl 50 mg tabs completed tramadol hcl 50 mg tabs [place] ([facility]) paroxetine hydrochloride 10 mg tabs completed paroxetine hydrochloride 10 mg tabs [place] ([facility]) albuterol sulfate hfa 108 mcg/act aers completed albuterol sulfate hfa 108 mcg/act aers [place] ([facility]) albuterol sulfate HFA 90 mcg/actuation a erosol inhaler USE 2 PUFFS BY MOUTH EVERY 4 HOURS NEEDED FOR COUGH [id number] com pleted [id number] 200 ACTUAT albuterol 0.09 MG/ACTUAT Metered Dose Inhaler [place] ([facility]) albuterol sulfate hfa 108 mcg/act aers completed albuterol sulfate hfa 108 mcg/act aers [place] ([facility]) fluticasone propionate 50 mcg/act susp completed fluticasone propionate 50 mcg/act susp [place] ([facility]) methylprednisolone dose pack 4 mg tbpk completed methylprednisolone dose pack 4 mg tbpk [place] ([facility]) cetirizine hydrochloride 10 MG Oral Tabl et cetirizine 10 mg tablet 1 tab as needed cetirizine 10 mg tablet 1 tab as needed completed cetirizine hydrochloride 10 MG Oral Tablet [place] ([facility]) Amoxicillin 500 MG Oral Capsule amoxicillin 500 mg cap joe amoxicillin 500 mg capsule completed amoxicillin 50 0 MG Oral Capsule [place] ([facility]) albuterol sulfate hfa 108 mcg/act aers completed albuterol sulfate hfa 108 mcg/act aers [place] ([facility]) Lorazepam 1 MG Oral Tablet lorazepam 1 mg tablet lorazepam 1 mg tablet completed lorazepam 1 MG Oral Table t [place] ([facility]) Carisoprodol 350 MG Oral Tablet carisopr odol 350 mg tablet TAKE ONE TABLET BY MOUTH THREE TIMES A DAY NEEDED MAXIMUM DAILY DOSE 3 carisoprodol 350 mg tablet TAKE ONE TABLET BY MOUTH THREE TIMES A DAY NEEDED MAXIMUM DAILY DOSE 3 completed carisoprodol 350 MG Oral Tablet [place] ([facility]) methocarbamol 750 mg tabs compl eted methocarbamol 750 mg tabs [place] ([facility]) ketotifen fumarate 0.025 % soln completed ketotifen fumarate 0.025 % soln [place] ([facility]) latanoprost 0.005 % soln completed latanoprost 0.005 % soln [place] ([facility]) brimonidine tartrate 0.2 % soln completed brimonidine tartrate 0.2 % soln [place] ([facility]) methocarbamol 750 mg tabs compl eted methocarbamol 750 mg tabs [place] ([facility]) naproxen 500 mg tabs completed naproxen 500 mg tabs [place] ([facility]) Methocarbamol 750 MG Oral Tablet methoca rbamol 750 mg tablet TAKE ONE TABLET BY MOUTH THREE TIMES A DAY NEEDED methocarbamol 750 mg tablet TAKE ONE TAB LET BY MOUTH THREE TIMES A DAY NEEDED comp leted methocarbamol 750 MG Oral Tablet [place] ([facility]) methylprednisolone dose pack 4 mg tbpk completed methylprednisolone dose pack 4 mg tbpk [place] ([facility]) venlafaxine hydrochloride er 75 mg cp24 completed venlafaxine hydrochloride er 75 mg cp24 [place] ([facility]) naproxen 500 mg tabs completed naproxen 500 mg tabs [place] ([facility]) Lorazepam 1 MG Oral Tablet lorazepam 1 mg tablet lorazepam 1 mg tablet completed lorazepam 1 MG Oral Table t [place] ([facility]) Amoxicillin 500 MG Oral Capsule amoxicillin 500 mg cap joe amoxicillin 500 mg capsule completed amoxicillin 50 0 MG Oral Capsule [place] ([facility]) ibuprofen 800 mg tabs completed ibuprofen 800 mg tabs [place] ([facility]) zonisamide 50 MG Oral Capsule zonisamide 50 mg capsule TAKE ONE CAPSULE BY MOUTH TWICE A DAY zonisamide 50 mg capsule TAKE ONE CAPSULE BY MOUTH TWICE A DAY completed zonisamide 50 MG Oral Capsule [place] ([facility]) Naproxen 500 MG Oral Tablet naproxen 500 mg tablet naproxen 500 mg ta blet completed naproxen 500 MG Oral Tablet [place] ([facility]) fluconazole 150 mg tabs completed fluconazole 150 mg tabs [place] ([facility]) Naproxen 250 MG Oral Tablet naproxen 250 mg tablet 1 t ab as needed naproxen 250 mg tablet 1 tab as needed completed naproxen 250 MG Oral Tablet [place] ([facility]) naproxen 500 mg tabs completed naproxen 500 mg tabs [place] ([facility]) latanoprost 0.005 % soln completed latanoprost 0.005 % soln [place] ([facility]) ibuprofen 800 mg tabs completed ibuprofen 800 mg tabs [place] ([facility]) tramadol hcl 50 mg tabs completed tramadol hcl 50 mg tabs [place] ([facility]) fluconazole 150 mg tabs completed fluconazole 150 mg tabs [place] ([facility]) ibuprofen 800 mg tabs completed ibuprofen 800 mg tabs [place] ([facility]) Naproxen 250 MG Oral Tablet naproxen 250 mg tablet 1 t ab as needed naproxen 250 mg tablet 1 tab as needed completed naproxen 250 MG Oral Tablet [place] ([facility]) Lidocaine Hydrochloride 30 MG/ML Topical Cream lidocai ne HCl 3 % topical cream lidocaine HCl 3 % topical cream comple sonja lidocaine hydrochloride 30 MG/ML Topical Cream [place] ([facility]) lidoc/banop/mi ac SWISH AND SPIT WITH 10 ML FOUR TIMES A DAY NEEDED FOR MUCOSITIS completed lidoc/ banop/mi ac [place] ([facility]) Ibuprofen 600 MG Oral Tablet ibuprofen 600 mg tablet ibuprofen 6 00 mg tablet completed ibuprofen 600 MG Oral Tablet [place] ([facility]) albuterol sulfate hfa 108 mcg/act aers completed albuterol sulfate hfa 108 mcg/act aers [place] ([facility]) paroxetine 10 mg tablet [id number] complet ed paroxetine hydrochloride 10 MG Oral Tablet [place] ([facility]) ibuprofen 800 mg tabs completed ibuprofen 800 mg tabs [place] ([facility]) [place] Oil 1,000 mg capsule Take 1 capsule every day by oral r oute. [id number] 1 capsule(s) completed [place] [employer] 1,000 mg capsule [place] ([facility]) amoxicillin 500 mg caps completed amoxicillin 500 mg caps [place] ([facility]) 24 HR venlafaxine 75 MG Extended Release Oral Capsule venlafaxine ER 75 mg capsule,extended release 24 hr TAKE ONE CAPSULE BY MOUTH EVERY DAY WITH FOOD venlafaxine ER 75 mg capsule,extended release 24 hr TAKE ONE CAPSULE BY MOUTH EVERY DAY WITH FOOD completed 24 HR venlafaxine 75 MG Extended Release Oral Capsule [place] ([facility]) 24 HR venlafaxine 75 MG Extended Release Oral Capsule venlafaxine ER 75 mg capsule,extended release 24 hr TAKE ONE CAPSULE BY MOUTH EVERY DAY WITH FOOD venlafaxine ER 75 mg capsule,extended release 24 hr TAKE ONE CAPSULE BY MOUTH EVERY DAY WITH FOOD completed 24 HR venlafaxine 75 MG Extended Release Oral Capsule [place] ([facility]) paroxetine hydrochloride 10 mg tabs completed paroxetine hydrochloride 10 mg tabs [place] ([facility]) fluconazole 150 mg tabs completed fluconazole 150 mg tabs [place] ([facility]) Amoxicillin 500 MG Oral Capsule amoxicillin 500 mg cap joe amoxicillin 500 mg capsule completed amoxicillin 50 0 MG Oral Capsule [place] ([facility]) Amoxicillin 500 MG Oral Capsule amoxicillin 500 mg cap joe amoxicillin 500 mg capsule completed amoxicillin 50 0 MG Oral Capsule [place] ([facility]) fluticasone propionate 50 mcg/actuation nasal spray,suspension [id number] completed fluticasone propionate 0.05 MG/ACTUAT Metered Dose Nasal [place] ([facility]) Naproxen 250 MG Oral Tablet naproxen 250 mg tablet 1 t ab as needed naproxen 250 mg tablet 1 tab as needed completed naproxen 250 MG Oral Tablet [place] ([facility]) Ibuprofen 600 MG Oral Tablet ibuprofen 600 mg tablet ibuprofen 6 00 mg tablet completed ibuprofen 600 MG Oral Tablet [place] ([facility]) gabapentin 800 mg tabs completed gabapentin 800 mg tabs [place] ([facility]) Methocarbamol 750 MG Oral Tablet methoca rbamol 750 mg tablet TAKE ONE TABLET BY MOUTH THREE TIMES A DAY NEEDED methocarbamol 750 mg tablet TAKE ONE TAB LET BY MOUTH THREE TIMES A DAY NEEDED comp leted methocarbamol 750 MG Oral Tablet [place] ([facility]) amoxicillin 500 mg caps completed amoxicillin 500 mg caps [place] ([facility]) naproxen 500 mg tabs completed naproxen 500 mg tabs [place] ([facility]) gabapentin 800 mg tabs completed gabapentin 800 mg tabs [place] ([facility]) hydroco/apap tab 5-325mg completed hydroco/apap tab 5-325mg [place] ([facility]) Amoxicillin 500 MG Oral Capsule amoxicillin 500 mg cap joe amoxicillin 500 mg capsule completed amoxicillin 50 0 MG Oral Capsule [place] ([facility]) Baclofen 10 MG Oral Tablet baclofen 10 m g tablet TAKE ONE TABLET BY MOUTH THREE TIMES A DAY NEEDED baclofen 10 mg tablet TAKE ONE TABLET BY MOUTH THREE TIMES A DAY NEEDED completed baclof en 10 MG Oral Tablet [place] ([facility]) methylprednisolone dose pack 4 mg tbpk completed methylprednisolone dose pack 4 mg tbpk [place] ([facility]) Naproxen 250 MG Oral Tablet naproxen 250 mg tablet 1 t ab as needed naproxen 250 mg tablet 1 tab as needed completed naproxen 250 MG Oral Tablet [place] ([facility]) tramadol hcl 50 mg tabs completed tramadol hcl 50 mg tabs [place] ([facility]) 24 HR venlafaxine 75 MG Extended Release Oral Capsule venlafaxine ER 75 mg capsule,extended release 24 hr TAKE ONE CAPSULE BY MOUTH EVERY DAY WITH FOOD venlafaxine ER 75 mg capsule,extended release 24 hr TAKE ONE CAPSULE BY MOUTH EVERY DAY WITH FOOD completed 24 HR venlafaxine 75 MG Extended Release Oral Capsule [facility] ([facility]) baclofen 10 mg tabs completed baclofen 10 mg tabs [facility] ([facility]) venlafaxine hydrochloride er 75 mg cp24 completed venlafaxine hydrochloride er 75 mg cp24 [place] ([facility]) albuterol sulfate hfa 108 mcg/act aers completed albuterol sulfate hfa 108 mcg/act aers [place] [facility] [facility]) Omeprazole 40 MG Delayed Release Oral Ca psule omeprazole 40 mg capsule,delayed release TAKE 1 CAPSULE BY MOUTH 30 MINUTES BEFORE MORNING MEAL ONCE A DAY omeprazole 40 mg capsule,delayed release TAKE 1 CAPSULE BY MOUTH 30 MINUTES BEFORE MORNING MEAL ONCE A DAY complet ed omeprazole 40 MG Delayed Release Oral Capsule [place] ([facility]) tramadol hcl 50 mg tabs completed tramadol hcl 50 mg tabs [place] ([facility]) gabapentin 800 mg tabs completed gabapentin 800 mg tabs [place] ([facility]) fluticasone propionate 50 mcg/actuation nasal spray,suspension [id number] completed fluticasone propionate 0.05 MG/ACTUAT Metered Dose Nasal [place] ([facility]) fluconazole 150 mg tabs completed fluconazole 150 mg tabs [place] ([facility]) venlafaxine hydrochloride er 75 mg cp24 completed venlafaxine hydrochloride er 75 mg cp24 [place] ([facility]) Brimonidine tartrate 2 MG/ML Ophthalmic Solution brimonidine 0.2 % eye drops INSTILL 1 DROP INTO BOTH EYES TWICE A DAY brimonidine 0.2 % eye drops INSTILL 1 DROP INTO BOTH EYES TWICE A DAY comple sonja brimonidine tartrate 2 MG/ML Ophthalmic Solution [place] ([facility]) Flint Oil 1,000 mg capsule Take 1 capsule every day by oral r oute. [id number] 1 capsule(s) completed [place] Oil 1,000 mg capsule [place] ([facility]) methylprednisolone dose pack 4 mg tbpk completed methylprednisolone dose pack 4 mg tbpk [place] ([facility]) baclofen 10 mg tabs completed baclofen 10 mg tabs [place] ([facility]) methocarbamol 750 mg tabs compl eted methocarbamol 750 mg tabs [place] ([facility]) Ibuprofen 600 MG Oral Tablet ibuprofen 600 mg tablet ibuprofen 6 00 mg tablet completed ibuprofen 600 MG Oral Tablet [place] ([facility]) ibuprofen 800 mg tabs completed ibuprofen 800 mg tabs [place] ([facility]) Flint Oil 1,000 mg capsule Take 1 capsule every day by oral r oute. [id number] 1 capsule(s) completed [place] Oil 1,000 mg capsule [place] ([facility]) fluticasone propionate 50 mcg/actuation nasal spray,suspension [id number] completed fluticasone propionate 0.05 MG/ACTUAT Metered Dose Nasal [place] ([facility]) methylprednisolone dose pack 4 mg tbpk completed methylprednisolone dose pack 4 mg tbpk [place] ([facility]) baclofen 10 mg tabs completed baclofen 10 mg tabs [place] ([facility]) albuterol sulfate hfa 108 mcg/act aers completed albuterol sulfate hfa 108 mcg/act aers [place] ([facility]) brimonidine tartrate 0.2 % soln completed brimonidine tartrate 0.2 % soln [place] ([facility]) Methocarbamol 750 MG Oral Tablet methoca rbamol 750 mg tablet TAKE ONE TABLET BY MOUTH THREE TIMES A DAY NEEDED methocarbamol 750 mg tablet TAKE ONE TAB LET BY MOUTH THREE TIMES A DAY NEEDED comp leted methocarbamol 750 MG Oral Tablet [place] ([facility]) Naproxen 500 MG Oral Tablet naproxen 500 mg tablet naproxen 500 mg ta blet completed naproxen 500 MG Oral Tablet [place] ([facility]) brimonidine tartrate 0.2 % soln completed brimonidine tartrate 0.2 % soln [place] ([facility]) hydroco/apap tab 5-325mg completed hydroco/apap tab 5-325mg [place] ([facility]) paroxetine hydrochloride 10 mg tabs completed paroxetine hydrochloride 10 mg tabs [place] ([facility]) methylprednisolone dose pack 4 mg tbpk completed methylprednisolone dose pack 4 mg tbpk [place] ([facility]) Carisoprodol 350 MG Oral Tablet carisopr odol 350 mg tablet TAKE ONE TABLET BY MOUTH THREE TIMES A DAY NEEDED MAXIMUM DAILY DOSE 3 carisoprodol 350 mg tablet TAKE ONE TABLET BY MOUTH THREE TIMES A DAY NEEDED MAXIMUM DAILY DOSE 3 completed carisoprodol 350 MG Oral Tablet [place] ([facility]) Carisoprodol 350 MG Oral Tablet carisopr odol 350 mg tablet TAKE ONE TABLET BY MOUTH THREE TIMES A DAY NEEDED MAXIMUM DAILY DOSE 3 carisoprodol 350 mg tablet TAKE ONE TABLET BY MOUTH THREE TIMES A DAY NEEDED MAXIMUM DAILY DOSE 3 completed carisoprodol 350 MG Oral Tablet [place] ([facility]) baclofen 10 mg tabs completed baclofen 10 mg tabs [place] ([facility]) fluconazole 150 mg tabs completed fluconazole 150 mg tabs [place] ([facility]) methocarbamol 750 mg tabs compl eted methocarbamol 750 mg tabs [place] ([facility]) methocarbamol 750 mg tabs compl eted methocarbamol 750 mg tabs [place] ([facility]) artificial tears 1.4 % soln com pleted artificial tears 1.4 % soln [place] ([facility]) ibuprofen 800 mg tabs completed ibuprofen 800 mg tabs [place] ([facility]) Omeprazole 40 MG Delayed Release Oral Ca psule omeprazole 40 mg capsule,delayed release TAKE 1 CAPSULE BY MOUTH 30 MINUTES BEFORE MORNING MEAL ONCE A DAY omeprazole 40 mg capsule,delayed release TAKE 1 CAPSULE BY MOUTH 30 MINUTES BEFORE MORNING MEAL ONCE A DAY complet ed omeprazole 40 MG Delayed Release Oral Capsule [place] ([facility]) Baclofen 10 MG Oral Tablet baclofen 10 m g tablet TAKE ONE TABLET BY MOUTH THREE TIMES A DAY NEEDED baclofen 10 mg tablet TAKE ONE TABLET BY MOUTH THREE TIMES A DAY NEEDED completed baclof en 10 MG Oral Tablet [place] ([facility]) gabapentin 800 mg tabs completed gabapentin 800 mg tabs [place] ([facility]) Amoxicillin 500 MG Oral Capsule amoxicillin 500 mg cap joe amoxicillin 500 mg capsule completed amoxicillin 50 0 MG Oral Capsule [place] ([facility]) Ibuprofen 600 MG Oral Tablet ibuprofen 600 mg tablet ibuprofen 6 00 mg tablet completed ibuprofen 600 MG Oral Tablet [place] ([facility]) Baclofen 10 MG Oral Tablet baclofen 10 m g tablet TAKE ONE TABLET BY MOUTH THREE TIMES A DAY NEEDED baclofen 10 mg tablet TAKE ONE TABLET BY MOUTH THREE TIMES A DAY NEEDED completed baclof en 10 MG Oral Tablet [place] ([facility]) baclofen 10 mg tabs completed baclofen 10 mg tabs [place] ([facility]) Lidocaine Hydrochloride 30 MG/ML Topical Cream lidocai ne HCl 3 % topical cream lidocaine HCl 3 % topical cream comple sonja lidocaine hydrochloride 30 MG/ML Topical Cream [place] ([facility]) venlafaxine hydrochloride er 75 mg cp24 completed venlafaxine hydrochloride er 75 mg cp24 [place] ([facility]) latanoprost 0.005 % soln completed latanoprost 0.005 % soln [place] ([facility]) albuterol sulfate HFA 90 mcg/actuation a erosol inhaler USE 2 PUFFS BY MOUTH EVERY 4 HOURS NEEDED FOR COUGH [id number] com pleted [id number] 200 ACTUAT albuterol 0.09 MG/ACTUAT Metered Dose Inhaler [place] ([facility]) naproxen 500 mg tabs completed naproxen 500 mg tabs [place] ([facility]) paroxetine 10 mg tablet [id number] complet ed paroxetine hydrochloride 10 MG Oral Tablet [place] ([facility]) amoxicillin 500 mg caps completed amoxicillin 500 mg caps [place] ([facility]) albuterol sulfate hfa 108 mcg/act aers completed albuterol sulfate hfa 108 mcg/act aers [place] ([facility]) Ibuprofen 600 MG Oral Tablet ibuprofen 600 mg tablet ibuprofen 6 00 mg tablet completed ibuprofen 600 MG Oral Tablet [place] ([facility]) Fluconazole 150 MG Oral Tablet fluconazo le 150 mg tablet TAKE ONE TABLET BY MOUTH TODAY AND REPEAT IN 10 DAYS fluconazole 150 mg tablet TAKE ONE TABLE T BY MOUTH TODAY AND REPEAT IN 10 DAYS comp leted fluconazole 150 MG Oral Tablet [place] ([facility]) artificial tears 1.4 % soln com pleted artificial tears 1.4 % soln [place] ([facility]) baclofen 10 mg tabs completed baclofen 10 mg tabs [place] ([facility]) amoxicillin 500 mg caps completed amoxicillin 500 mg caps [place] ([facility]) ketotifen fumarate 0.025 % soln completed ketotifen fumarate 0.025 % soln [place] ([facility]) Flint Oil 1,000 mg capsule Take 1 capsule every day by oral r oute. [id number] 1 capsule(s) completed [place] Oil 1,000 mg capsule [place] ([facility]) naproxen 500 mg tabs completed naproxen 500 mg tabs [place] ([facility]) venlafaxine hydrochloride er 75 mg cp24 completed venlafaxine hydrochloride er 75 mg cp24 [place] ([facility]) latanoprost 0.005 % soln completed latanoprost 0.005 % soln [place] ([facility]) gabapentin 800 mg tabs completed gabapentin 800 mg tabs [place] ([facility]) albuterol sulfate HFA 90 mcg/actuation a erosol inhaler USE 2 PUFFS BY MOUTH EVERY 4 HOURS NEEDED FOR COUGH [id number] com pleted [id number] 200 ACTUAT albuterol 0.09 MG/ACTUAT Metered Dose Inhaler [place] ([facility]) fluticasone propionate 50 mcg/act susp completed fluticasone propionate 50 mcg/act susp [place] ([facility]) Fluconazole 150 MG Oral Tablet fluconazole 150 mg tabl et fluconazole 150 mg tablet completed fluconazole 150 MG Oral Tablet [place] ([facility]) fluconazole 150 mg tabs completed fluconazole 150 mg tabs [place] ([facility]) fluticasone propionate 50 mcg/act susp completed fluticasone propionate 50 mcg/act susp [place] ([facility]) Ibuprofen 600 MG Oral Tablet ibuprofen 600 mg tablet ibuprofen 6 00 mg tablet completed ibuprofen 600 MG Oral Tablet [place] ([facility]) Baclofen 10 MG Oral Tablet baclofen 10 m g tablet TAKE ONE TABLET BY MOUTH THREE TIMES A DAY NEEDED baclofen 10 mg tablet TAKE ONE TABLET BY MOUTH THREE TIMES A DAY NEEDED completed baclof en 10 MG Oral Tablet [place] ([facility]) Lidocaine Hydrochloride 30 MG/ML Topical Cream lidocai ne HCl 3 % topical cream lidocaine HCl 3 % topical cream comple sonja lidocaine hydrochloride 30 MG/ML Topical Cream [place] ([facility]) Brimonidine tartrate 2 MG/ML Ophthalmic Solution brimonidine 0.2 % eye drops INSTILL 1 DROP INTO BOTH EYES TWICE A DAY brimonidine 0.2 % eye drops INSTILL 1 DROP INTO BOTH EYES TWICE A DAY comple sonja brimonidine tartrate 2 MG/ML Ophthalmic Solution [place] ([facility]) Lorazepam 1 MG Oral Tablet lorazepam 1 mg tablet lorazepam 1 mg tablet completed lorazepam 1 MG Oral Table t [place] ([facility]) 24 HR venlafaxine 75 MG Extended Release Oral Capsule venlafaxine ER 75 mg capsule,extended release 24 hr TAKE ONE CAPSULE BY MOUTH EVERY DAY WITH FOOD venlafaxine ER 75 mg capsule,extended release 24 hr TAKE ONE CAPSULE BY MOUTH EVERY DAY WITH FOOD completed 24 HR venlafaxine 75 MG Extended Release Oral Capsule [place] ([facility]) naproxen 500 mg tabs completed naproxen 500 mg tabs [place] ([facility]) lidoc/banop/mi ac SWISH AND SPIT WITH 10 ML FOUR TIMES A DAY NEEDED FOR MUCOSITIS completed lidoc/ banop/mi ac [place] ([facility]) amoxicillin 500 mg caps completed amoxicillin 500 mg caps [place] ([facility]) gabapentin 800 mg tabs completed gabapentin 800 mg tabs [place] ([facility]) Lorazepam 1 MG Oral Tablet lorazepam 1 mg tablet lorazepam 1 mg tablet completed lorazepam 1 MG Oral Table t [place] ([facility]) albuterol sulfate hfa 108 mcg/act aers completed albuterol sulfate hfa 108 mcg/act aers [place] ([facility]) fluticasone propionate 50 mcg/act susp completed fluticasone propionate 50 mcg/act susp [place] ([facility]) Amoxicillin 500 MG Oral Capsule amoxicillin 500 mg cap joe amoxicillin 500 mg capsule completed amoxicillin 50 0 MG Oral Capsule [place] ([facility]) ibuprofen 800 mg tabs completed ibuprofen 800 mg tabs [place] ([facility]) Lidocaine Hydrochloride 30 MG/ML Topical Cream lidocai ne HCl 3 % topical cream lidocaine HCl 3 % topical cream comple sonja lidocaine hydrochloride 30 MG/ML Topical Cream [place] ([facility]) cetirizine hydrochloride 10 MG Oral Tabl et cetirizine 10 mg tablet 1 tab as needed cetirizine 10 mg tablet 1 tab as needed completed cetirizine hydrochloride 10 MG Oral Tablet [place] ([facility]) latanoprost 0.005 % soln completed latanoprost 0.005 % soln [place] ([facility]) paroxetine hydrochloride 10 mg tabs completed paroxetine hydrochloride 10 mg tabs [place] ([facility]) Naproxen 500 MG Oral Tablet naproxen 500 mg tablet naproxen 500 mg ta blet completed naproxen 500 MG Oral Tablet [place] ([facility]) Amoxicillin 500 MG Oral Capsule amoxicillin 500 mg cap joe amoxicillin 500 mg capsule completed amoxicillin 50 0 MG Oral Capsule [place] ([facility]) Ibuprofen 600 MG Oral Tablet ibuprofen 600 mg tablet ibuprofen 6 00 mg tablet completed ibuprofen 600 MG Oral Tablet [place] ([facility]) Fluconazole 150 MG Oral Tablet fluconazole 150 mg tabl et fluconazole 150 mg tablet completed fluconazole 150 MG Oral Tablet [place] ([facility]) Naproxen 250 MG Oral Tablet naproxen 250 mg tablet 1 t ab as needed naproxen 250 mg tablet 1 tab as needed completed naproxen 250 MG Oral Tablet [place] ([facility]) Lidocaine Hydrochloride 30 MG/ML Topical Cream lidocai ne HCl 3 % topical cream lidocaine HCl 3 % topical cream comple sonja lidocaine hydrochloride 30 MG/ML Topical Cream [place] ([facility]) latanoprost 0.005 % soln completed latanoprost 0.005 % soln [place] ([facility]) tramadol hcl 50 mg tabs completed tramadol hcl 50 mg tabs [place] ([facility]) Carisoprodol 350 MG Oral Tablet carisopr odol 350 mg tablet TAKE ONE TABLET BY MOUTH THREE TIMES A DAY NEEDED MAXIMUM DAILY DOSE 3 carisoprodol 350 mg tablet TAKE ONE TABLET BY MOUTH THREE TIMES A DAY NEEDED MAXIMUM DAILY DOSE 3 completed carisoprodol 350 MG Oral Tablet [place] ([facility]) amoxicillin 500 mg caps completed amoxicillin 500 mg caps [place] ([facility]) baclofen 10 mg tabs completed baclofen 10 mg tabs [place] ([facility]) artificial tears 1.4 % soln com pleted artificial tears 1.4 % soln [place] ([facility]) paroxetine 10 mg tablet [id number] complet ed paroxetine hydrochloride 10 MG Oral Tablet [place] ([facility]) Lidocaine Hydrochloride 30 MG/ML Topical Cream lidocai ne HCl 3 % topical cream lidocaine HCl 3 % topical cream comple sonja lidocaine hydrochloride 30 MG/ML Topical Cream [place] ([facility]) Lidocaine Hydrochloride 30 MG/ML Topical Cream lidocai ne HCl 3 % topical cream lidocaine HCl 3 % topical cream comple sonja lidocaine hydrochloride 30 MG/ML Topical Cream [place] ([facility]) baclofen 10 mg tabs completed baclofen 10 mg tabs [place] ([facility]) fluconazole 150 mg tabs completed fluconazole 150 mg tabs [place] ([facility]) Amoxicillin 500 MG Oral Capsule amoxicillin 500 mg cap joe amoxicillin 500 mg capsule completed amoxicillin 50 0 MG Oral Capsule [place] ([facility]) naproxen 500 mg tabs completed naproxen 500 mg tabs [place] ([facility]) naproxen 500 mg tabs completed naproxen 500 mg tabs [place] ([facility]) Flint Oil 1,000 mg capsule Take 1 capsule every day by oral r oute. [id number] 1 capsule(s) completed [place] Oil 1,000 mg capsule [place] ([facility]) brimonidine tartrate 0.2 % soln completed brimonidine tartrate 0.2 % soln [place] ([facility]) ibuprofen 800 mg tabs completed ibuprofen 800 mg tabs [place] ([facility]) latanoprost 0.005 % soln completed latanoprost 0.005 % soln [place] ([facility]) paroxetine hydrochloride 10 mg tabs completed paroxetine hydrochloride 10 mg tabs [place] ([facility]) fluticasone propionate 50 mcg/act susp completed fluticasone propionate 50 mcg/act susp [place] ([facility]) latanoprost 0.005 % soln completed latanoprost 0.005 % soln [place] ([facility]) methocarbamol 750 mg tabs compl eted methocarbamol 750 mg tabs [place] ([facility]) fluconazole 150 mg tabs completed fluconazole 150 mg tabs [place] ([facility]) Carisoprodol 350 MG Oral Tablet carisopr odol 350 mg tablet TAKE ONE TABLET BY MOUTH THREE TIMES A DAY NEEDED MAXIMUM DAILY DOSE 3 carisoprodol 350 mg tablet TAKE ONE TABLET BY MOUTH THREE TIMES A DAY NEEDED MAXIMUM DAILY DOSE 3 completed carisoprodol 350 MG Oral Tablet [place] ([facility]) Carisoprodol 350 MG Oral Tablet carisopr odol 350 mg tablet TAKE ONE TABLET BY MOUTH THREE TIMES A DAY NEEDED MAXIMUM DAILY DOSE 3 carisoprodol 350 mg tablet TAKE ONE TABLET BY MOUTH THREE TIMES A DAY NEEDED MAXIMUM DAILY DOSE 3 completed carisoprodol 350 MG Oral Tablet [place] ([facility]) artificial tears 1.4 % soln com pleted artificial tears 1.4 % soln [place] ([facility]) ketotifen fumarate 0.025 % soln completed ketotifen fumarate 0.025 % soln [place] ([facility]) Amoxicillin 500 MG Oral Capsule amoxicillin 500 mg cap joe amoxicillin 500 mg capsule completed amoxicillin 50 0 MG Oral Capsule [place] ([facility]) Naproxen 250 MG Oral Tablet naproxen 250 mg tablet 1 t ab as needed naproxen 250 mg tablet 1 tab as needed completed naproxen 250 MG Oral Tablet [place] ([facility]) artificial tears 1.4 % soln com pleted artificial tears 1.4 % soln [place] ([facility]) ibuprofen 800 mg tabs completed ibuprofen 800 mg tabs [place] ([facility]) paroxetine hydrochloride 10 mg tabs completed paroxetine hydrochloride 10 mg tabs [place] ([facility]) gabapentin 800 mg tabs completed gabapentin 800 mg tabs [place] ([facility]) methylprednisolone dose pack 4 mg tbpk completed methylprednisolone dose pack 4 mg tbpk [place] ([facility]) ibuprofen 800 mg tabs completed ibuprofen 800 mg tabs [place] ([facility]) naproxen 500 mg tabs completed naproxen 500 mg tabs [place] ([facility]) Carisoprodol 350 MG Oral Tablet carisopr odol 350 mg tablet TAKE ONE TABLET BY MOUTH THREE TIMES A DAY NEEDED MAXIMUM DAILY DOSE 3 carisoprodol 350 mg tablet TAKE ONE TABLET BY MOUTH THREE TIMES A DAY NEEDED MAXIMUM DAILY DOSE 3 completed carisoprodol 350 MG Oral Tablet [place] ([facility]) methylprednisolone dose pack 4 mg tbpk completed methylprednisolone dose pack 4 mg tbpk [place] ([facility]) tramadol hcl 50 mg tabs completed tramadol hcl 50 mg tabs [place] ([facility]) paroxetine hydrochloride 10 mg tabs completed paroxetine hydrochloride 10 mg tabs [place] ([facility]) Ibuprofen 600 MG Oral Tablet ibuprofen 600 mg tablet ibuprofen 6 00 mg tablet completed ibuprofen 600 MG Oral Tablet [place] ([facility]) fluconazole 150 mg tabs completed fluconazole 150 mg tabs [place] ([facility]) ibuprofen 800 mg tabs completed ibuprofen 800 mg tabs [place] ([facility]) fluticasone propionate 50 mcg/actuation nasal spray,suspension [id number] completed fluticasone propionate 0.05 MG/ACTUAT Metered Dose Nasal [place] ([facility]) artificial tears 1.4 % soln com pleted artificial tears 1.4 % soln [place] ([facility]) Naproxen 250 MG Oral Tablet naproxen 250 mg tablet 1 t ab as needed naproxen 250 mg tablet 1 tab as needed completed naproxen 250 MG Oral Tablet [place] ([facility]) lidoc/banop/mi ac SWISH AND SPIT WITH 10 ML FOUR TIMES A DAY NEEDED FOR MUCOSITIS completed lidoc/ banop/mi ac [place] ([facility]) fluconazole 150 mg tabs completed fluconazole 150 mg tabs [place] ([facility]) Lorazepam 1 MG Oral Tablet lorazepam 1 mg tablet lorazepam 1 mg tablet completed lorazepam 1 MG Oral Table t [place] ([facility]) gabapentin 800 mg tabs completed gabapentin 800 mg tabs [place] ([facility]) Lidocaine Hydrochloride 30 MG/ML Topical Cream lidocai ne HCl 3 % topical cream lidocaine HCl 3 % topical cream comple sonja lidocaine hydrochloride 30 MG/ML Topical Cream [place] ([facility]) Naproxen 250 MG Oral Tablet naproxen 250 mg tablet 1 t ab as needed naproxen 250 mg tablet 1 tab as needed completed naproxen 250 MG Oral Tablet [place] ([facility]) Flint Oil 1,000 mg capsule Take 1 capsule every day by oral r oute. [id number] 1 capsule(s) completed [place] Oil 1,000 mg capsule [place] ([facility]) Naproxen 250 MG Oral Tablet naproxen 250 mg tablet 1 t ab as needed naproxen 250 mg tablet 1 tab as needed completed naproxen 250 MG Oral Tablet [place] ([facility]) gabapentin 800 mg tabs completed gabapentin 800 mg tabs [place] ([facility]) Lidocaine Hydrochloride 30 MG/ML Topical Cream lidocai ne HCl 3 % topical cream lidocaine HCl 3 % topical cream comple sonja lidocaine hydrochloride 30 MG/ML Topical Cream [place] ([facility]) Lidocaine Hydrochloride 30 MG/ML Topical Cream lidocai ne HCl 3 % topical cream lidocaine HCl 3 % topical cream comple sonja lidocaine hydrochloride 30 MG/ML Topical Cream [place] ([facility]) venlafaxine hydrochloride er 75 mg cp24 completed venlafaxine hydrochloride er 75 mg cp24 [place] ([facility]) fluticasone propionate 50 mcg/act susp completed fluticasone propionate 50 mcg/act susp [place] ([facility]) lidoc/banop/mi ac SWISH AND SPIT WITH 10 ML FOUR TIMES A DAY NEEDED FOR MUCOSITIS completed lidoc/ banop/mi ac [place] ([facility]) Flint Oil 1,000 mg capsule Take 1 capsule every day by oral r oute. [id number] 1 capsule(s) completed Flint Oil 1,000 mg capsule [place] ([facility]) fluticasone propionate 50 mcg/act susp completed fluticasone propionate 50 mcg/act susp [place] ([facility]) artificial tears 1.4 % soln com pleted artificial tears 1.4 % soln [place] ([facility]) brimonidine tartrate 0.2 % soln completed brimonidine tartrate 0.2 % soln [place] ([facility]) fluconazole 150 mg tabs completed fluconazole 150 mg tabs [place] ([facility]) latanoprost 0.005 % soln completed latanoprost 0.005 % soln [place] ([facility]) tramadol hcl 50 mg tabs completed tramadol hcl 50 mg tabs [place] ([facility]) paroxetine 10 mg tablet [id number] complet ed paroxetine hydrochloride 10 MG Oral Tablet [place] ([facility]) methylprednisolone dose pack 4 mg tbpk completed methylprednisolone dose pack 4 mg tbpk [place] ([facility]) tramadol hcl 50 mg tabs completed tramadol hcl 50 mg tabs [place] ([facility]) Flint Oil 1,000 mg capsule Take 1 capsule every day by oral r oute. [id number] 1 capsule(s) completed [place] Oil 1,000 mg capsule [place] ([facility]) Carisoprodol 350 MG Oral Tablet carisopr odol 350 mg tablet TAKE ONE TABLET BY MOUTH THREE TIMES A DAY NEEDED MAXIMUM DAILY DOSE 3 carisoprodol 350 mg tablet TAKE ONE TABLET BY MOUTH THREE TIMES A DAY NEEDED MAXIMUM DAILY DOSE 3 completed carisoprodol 350 MG Oral Tablet [place] ([facility]) Brimonidine tartrate 2 MG/ML Ophthalmic Solution brimonidine 0.2 % eye drops INSTILL 1 DROP INTO BOTH EYES TWICE A DAY brimonidine 0.2 % eye drops INSTILL 1 DROP INTO BOTH EYES TWICE A DAY comple sonja brimonidine tartrate 2 MG/ML Ophthalmic Solution [place] ([facility]) paroxetine 10 mg tablet [id number] complet ed paroxetine hydrochloride 10 MG Oral Tablet [place] ([facility]) naproxen 500 mg tabs completed naproxen 500 mg tabs [place] ([facility]) brimonidine tartrate 0.2 % soln completed brimonidine tartrate 0.2 % soln [place] ([facility]) 24 HR venlafaxine 75 MG Extended Release Oral Capsule venlafaxine ER 75 mg capsule,extended release 24 hr TAKE ONE CAPSULE BY MOUTH EVERY DAY WITH FOOD venlafaxine ER 75 mg capsule,extended release 24 hr TAKE ONE CAPSULE BY MOUTH EVERY DAY WITH FOOD completed 24 HR venlafaxine 75 MG Extended Release Oral Capsule [place] ([facility]) ketotifen fumarate 0.025 % soln completed ketotifen fumarate 0.025 % soln [place] ([facility]) artificial tears 1.4 % soln com pleted artificial tears 1.4 % soln [place] ([facility]) Naproxen 500 MG Oral Tablet naproxen 500 mg tablet naproxen 500 mg ta blet completed naproxen 500 MG Oral Tablet [place] ([facility]) amoxicillin 500 mg caps completed amoxicillin 500 mg caps [place] ([facility]) fluconazole 150 mg tabs completed fluconazole 150 mg tabs [place] ([facility]) tramadol hcl 50 mg tabs completed tramadol hcl 50 mg tabs [place] ([facility]) zonisamide 50 MG Oral Capsule zonisamide 50 mg capsule TAKE ONE CAPSULE BY MOUTH TWICE A DAY zonisamide 50 mg capsule TAKE ONE CAPSULE BY MOUTH TWICE A DAY completed zonisamide 50 MG Oral Capsule [place] ([facility]) fluconazole 150 mg tabs completed fluconazole 150 mg tabs [place] ([facility]) methylprednisolone dose pack 4 mg tbpk completed methylprednisolone dose pack 4 mg tbpk [place] ([facility]) Lorazepam 1 MG Oral Tablet lorazepam 1 mg tablet lorazepam 1 mg tablet completed lorazepam 1 MG Oral Table t [place] ([facility]) latanoprost 0.005 % soln completed latanoprost 0.005 % soln [place] ([facility]) artificial tears 1.4 % soln com pleted artificial tears 1.4 % soln [place] ([facility]) Flint Oil 1,000 mg capsule Take 1 capsule every day by oral r oute. [id number] 1 capsule(s) completed [place] Oil 1,000 mg capsule [place] ([facility]) Lidocaine Hydrochloride 30 MG/ML Topical Cream lidocai ne HCl 3 % topical cream lidocaine HCl 3 % topical cream comple sonja lidocaine hydrochloride 30 MG/ML Topical Cream [place] ([facility]) zonisamide 50 MG Oral Capsule zonisamide 50 mg capsule TAKE ONE CAPSULE BY MOUTH TWICE A DAY zonisamide 50 mg capsule TAKE ONE CAPSULE BY MOUTH TWICE A DAY completed zonisamide 50 MG Oral Capsule [place] ([facility]) Naproxen 500 MG Oral Tablet naproxen 500 mg tablet naproxen 500 mg ta blet completed naproxen 500 MG Oral Tablet [place] ([facility]) albuterol sulfate hfa 108 mcg/act aers completed albuterol sulfate hfa 108 mcg/act aers [place] ([facility]) tramadol hcl 50 mg tabs completed tramadol hcl 50 mg tabs [place] ([facility]) artificial tears 1.4 % soln com pleted artificial tears 1.4 % soln [place] ([facility]) Carisoprodol 350 MG Oral Tablet carisopr odol 350 mg tablet TAKE ONE TABLET BY MOUTH THREE TIMES A DAY NEEDED MAXIMUM DAILY DOSE 3 carisoprodol 350 mg tablet TAKE ONE TABLET BY MOUTH THREE TIMES A DAY NEEDED MAXIMUM DAILY DOSE 3 completed carisoprodol 350 MG Oral Tablet [place] ([facility]) tramadol hcl 50 mg tabs completed tramadol hcl 50 mg tabs [place] ([facility]) fluconazole 150 mg tabs completed fluconazole 150 mg tabs [place] ([facility]) brimonidine tartrate 0.2 % soln completed brimonidine tartrate 0.2 % soln [place] ([facility]) Brimonidine tartrate 2 MG/ML Ophthalmic Solution brimonidine 0.2 % eye drops INSTILL 1 DROP INTO BOTH EYES TWICE A DAY brimonidine 0.2 % eye drops INSTILL 1 DROP INTO BOTH EYES TWICE A DAY comple sonja brimonidine tartrate 2 MG/ML Ophthalmic Solution [place] ([facility]) Naproxen 250 MG Oral Tablet naproxen 250 mg tablet 1 t ab as needed naproxen 250 mg tablet 1 tab as needed completed naproxen 250 MG Oral Tablet [place] ([facility]) 24 HR venlafaxine 75 MG Extended Release Oral Capsule venlafaxine ER 75 mg capsule,extended release 24 hr TAKE ONE CAPSULE BY MOUTH EVERY DAY WITH FOOD venlafaxine ER 75 mg capsule,extended release 24 hr TAKE ONE CAPSULE BY MOUTH EVERY DAY WITH FOOD completed 24 HR venlafaxine 75 MG Extended Release Oral Capsule [place] ([facility]) fluticasone propionate 50 mcg/act susp completed fluticasone propionate 50 mcg/act susp [place] ([facility]) baclofen 10 mg tabs completed baclofen 10 mg tabs [place] ([facility]) albuterol sulfate hfa 108 mcg/act aers completed albuterol sulfate hfa 108 mcg/act aers [place] ([facility]) Carisoprodol 350 MG Oral Tablet carisopr odol 350 mg tablet TAKE ONE TABLET BY MOUTH THREE TIMES A DAY NEEDED MAXIMUM DAILY DOSE 3 carisoprodol 350 mg tablet TAKE ONE TABLET BY MOUTH THREE TIMES A DAY NEEDED MAXIMUM DAILY DOSE 3 completed carisoprodol 350 MG Oral Tablet [place] ([facility]) tramadol hcl 50 mg tabs completed tramadol hcl 50 mg tabs [place] ([facility]) albuterol sulfate HFA 90 mcg/actuation a erosol inhaler USE 2 PUFFS BY MOUTH EVERY 4 HOURS NEEDED FOR COUGH [id number] com pleted [id number] 200 ACTUAT albuterol 0.09 MG/ACTUAT Metered Dose Inhaler [place] ([facility]) Lorazepam 1 MG Oral Tablet lorazepam 1 mg tablet lorazepam 1 mg tablet completed lorazepam 1 MG Oral Table t [place] ([facility]) albuterol sulfate hfa 108 mcg/act aers completed albuterol sulfate hfa 108 mcg/act aers [place] ([facility]) fluconazole 150 mg tabs completed fluconazole 150 mg tabs [place] ([facility]) zonisamide 50 MG Oral Capsule zonisamide 50 mg capsule TAKE ONE CAPSULE BY MOUTH TWICE A DAY zonisamide 50 mg capsule TAKE ONE CAPSULE BY MOUTH TWICE A DAY completed zonisamide 50 MG Oral Capsule [place] ([facility]) gabapentin 800 mg tabs completed gabapentin 800 mg tabs [place] ([facility]) Fluconazole 150 MG Oral Tablet fluconazole 150 mg tabl et fluconazole 150 mg tablet completed fluconazole 150 MG Oral Tablet [place] ([facility]) naproxen 500 mg tabs completed naproxen 500 mg tabs [place] ([facility]) baclofen 10 mg tabs completed baclofen 10 mg tabs [place] ([facility]) methocarbamol 750 mg tabs compl eted methocarbamol 750 mg tabs [place] ([facility]) methocarbamol 750 mg tabs compl eted methocarbamol 750 mg tabs [place] ([facility]) baclofen 10 mg tabs completed baclofen 10 mg tabs [place] ([facility]) Ibuprofen 600 MG Oral Tablet ibuprofen 600 mg tablet ibuprofen 6 00 mg tablet completed ibuprofen 600 MG Oral Tablet [place] ([facility]) albuterol sulfate hfa 108 mcg/act aers completed albuterol sulfate hfa 108 mcg/act aers [place] ([facility]) Amoxicillin 500 MG Oral Capsule amoxicillin 500 mg cap joe amoxicillin 500 mg capsule completed amoxicillin 50 0 MG Oral Capsule [place] ([facility]) brimonidine tartrate 0.2 % soln completed brimonidine tartrate 0.2 % soln [place] ([facility]) latanoprost 0.005 % soln completed latanoprost 0.005 % soln [place] ([facility]) hydroco/apap tab 5-325mg completed hydroco/apap tab 5-325mg [place] ([facility]) amoxicillin 500 mg caps completed amoxicillin 500 mg caps [place] ([facility]) Brimonidine tartrate 2 MG/ML Ophthalmic Solution brimonidine 0.2 % eye drops INSTILL 1 DROP INTO BOTH EYES TWICE A DAY brimonidine 0.2 % eye drops INSTILL 1 DROP INTO BOTH EYES TWICE A DAY comple sonja brimonidine tartrate 2 MG/ML Ophthalmic Solution [place] ([facility]) fluticasone propionate 50 mcg/actuation nasal spray,suspension [id number] completed fluticasone propionate 0.05 MG/ACTUAT Metered Dose Nasal [place] ([facility]) methylprednisolone dose pack 4 mg tbpk completed methylprednisolone dose pack 4 mg tbpk [place] ([facility]) albuterol sulfate HFA 90 mcg/actuation a erosol inhaler USE 2 PUFFS BY MOUTH EVERY 4 HOURS NEEDED FOR COUGH [id number] com pleted [id number] 200 ACTUAT albuterol 0.09 MG/ACTUAT Metered Dose Inhaler [place] ([facility]) albuterol sulfate hfa 108 mcg/act aers completed albuterol sulfate hfa 108 mcg/act aers [place] ([facility]) lidoc/banop/mi ac SWISH AND SPIT WITH 10 ML FOUR TIMES A DAY NEEDED FOR MUCOSITIS completed lidoc/ banop/mi ac [place] ([facility]) hydroco/apap tab 5-325mg completed hydroco/apap tab 5-325mg [place] ([facility]) Naproxen 250 MG Oral Tablet naproxen 250 mg tablet 1 t ab as needed naproxen 250 mg tablet 1 tab as needed completed naproxen 250 MG Oral Tablet [place] ([facility]) latanoprost 0.005 % soln completed latanoprost 0.005 % soln [place] ([facility]) amoxicillin 500 mg caps completed amoxicillin 500 mg caps [place] ([facility]) brimonidine tartrate 0.2 % soln completed brimonidine tartrate 0.2 % soln [place] ([facility]) fluconazole 150 mg tabs completed fluconazole 150 mg tabs [place] ([facility]) lidoc/banop/mi ac SWISH AND SPIT WITH 10 ML FOUR TIMES A DAY NEEDED FOR MUCOSITIS completed lidoc/ banop/mi ac [place] ([facility]) methylprednisolone dose pack 4 mg tbpk completed methylprednisolone dose pack 4 mg tbpk [place] ([facility]) Naproxen 250 MG Oral Tablet naproxen 250 mg tablet 1 t ab as needed naproxen 250 mg tablet 1 tab as needed completed naproxen 250 MG Oral Tablet [place] ([facility]) cetirizine hydrochloride 10 MG Oral Tabl et cetirizine 10 mg tablet 1 tab as needed cetirizine 10 mg tablet 1 tab as needed completed cetirizine hydrochloride 10 MG Oral Tablet [place] ([facility]) gabapentin 800 mg tabs completed gabapentin 800 mg tabs [place] ([facility]) amoxicillin 500 mg caps completed amoxicillin 500 mg caps [place] ([facility]) Methocarbamol 750 MG Oral Tablet methoca rbamol 750 mg tablet TAKE ONE TABLET BY MOUTH THREE TIMES A DAY NEEDED methocarbamol 750 mg tablet TAKE ONE TAB LET BY MOUTH THREE TIMES A DAY NEEDED comp leted methocarbamol 750 MG Oral Tablet [place] ([facility]) fluconazole 150 mg tabs completed fluconazole 150 mg tabs [place] ([facility]) Amoxicillin 500 MG Oral Capsule amoxicillin 500 mg cap joe amoxicillin 500 mg capsule completed amoxicillin 50 0 MG Oral Capsule [place] ([facility]) Brimonidine tartrate 2 MG/ML Ophthalmic Solution brimonidine 0.2 % eye drops INSTILL 1 DROP INTO BOTH EYES TWICE A DAY brimonidine 0.2 % eye drops INSTILL 1 DROP INTO BOTH EYES TWICE A DAY comple sonja brimonidine tartrate 2 MG/ML Ophthalmic Solution [place] ([facility]) Ketotifen 0.25 MG/ML Ophthalmic Solution ketotifen 0.025 % (0.035 %) eye drops INSTILL 1 DROP IN EACH EYE TWO TIMES A DAY DIRECTED ketotifen 0.025 % (0.035 %) eye drops INSTILL 1 DROP IN EACH EYE TWO TIMES A DAY DIRECTED completed ketotifen 0.25 MG/ML Ophthalmic Solution [place] ([facility]) brimonidine tartrate 0.2 % soln completed brimonidine tartrate 0.2 % soln [place] ([facility]) Naproxen 250 MG Oral Tablet naproxen 250 mg tablet 1 t ab as needed naproxen 250 mg tablet 1 tab as needed completed naproxen 250 MG Oral Tablet [place] ([facility]) latanoprost 0.005 % soln completed latanoprost 0.005 % soln [place] ([facility]) Lorazepam 1 MG Oral Tablet lorazepam 1 mg tablet lorazepam 1 mg tablet completed lorazepam 1 MG Oral Table t [place] ([facility]) Carisoprodol 350 MG Oral Tablet carisopr odol 350 mg tablet TAKE ONE TABLET BY MOUTH THREE TIMES A DAY NEEDED MAXIMUM DAILY DOSE 3 carisoprodol 350 mg tablet TAKE ONE TABLET BY MOUTH THREE TIMES A DAY NEEDED MAXIMUM DAILY DOSE 3 completed carisoprodol 350 MG Oral Tablet [place] ([facility]) gabapentin 800 mg tabs completed gabapentin 800 mg tabs [place] ([facility]) tramadol hcl 50 mg tabs completed tramadol hcl 50 mg tabs [place] ([facility]) methylprednisolone dose pack 4 mg tbpk completed methylprednisolone dose pack 4 mg tbpk [place] ([facility]) ketotifen fumarate 0.025 % soln completed ketotifen fumarate 0.025 % soln [place] ([facility]) Amoxicillin 500 MG Oral Capsule amoxicillin 500 mg cap joe amoxicillin 500 mg capsule completed amoxicillin 50 0 MG Oral Capsule [place] ([facility]) naproxen 500 mg tabs completed naproxen 500 mg tabs [place] ([facility]) Lidocaine Hydrochloride 30 MG/ML Topical Cream lidocai ne HCl 3 % topical cream lidocaine HCl 3 % topical cream comple sonja lidocaine hydrochloride 30 MG/ML Topical Cream [place] ([facility]) fluticasone propionate 50 mcg/act susp completed fluticasone propionate 50 mcg/act susp [place] ([facility]) Brimonidine tartrate 2 MG/ML Ophthalmic Solution brimonidine 0.2 % eye drops INSTILL 1 DROP INTO BOTH EYES TWICE A DAY brimonidine 0.2 % eye drops INSTILL 1 DROP INTO BOTH EYES TWICE A DAY comple sonja brimonidine tartrate 2 MG/ML Ophthalmic Solution [place] ([facility]) brimonidine tartrate 0.2 % soln completed brimonidine tartrate 0.2 % soln [place] ([facility]) paroxetine hydrochloride 10 mg tabs completed paroxetine hydrochloride 10 mg tabs [place] ([facility]) albuterol sulfate hfa 108 mcg/act aers completed albuterol sulfate hfa 108 mcg/act aers [place] ([facility]) brimonidine tartrate 0.2 % soln completed brimonidine tartrate 0.2 % soln [place] ([facility]) amoxicillin 500 mg caps completed amoxicillin 500 mg caps [place] ([facility]) albuterol sulfate hfa 108 mcg/act aers completed albuterol sulfate hfa 108 mcg/act aers [place] ([facility]) albuterol sulfate hfa 108 mcg/act aers completed albuterol sulfate hfa 108 mcg/act aers [place] ([facility]) methocarbamol 750 mg tabs compl eted methocarbamol 750 mg tabs [place] ([facility]) ibuprofen 800 mg tabs completed ibuprofen 800 mg tabs [place] ([facility]) Amoxicillin 500 MG Oral Capsule amoxicillin 500 mg cap joe amoxicillin 500 mg capsule completed amoxicillin 50 0 MG Oral Capsule [place] ([facility]) paroxetine 10 mg tablet [id number] complet ed paroxetine hydrochloride 10 MG Oral Tablet [place] ([facility]) fluconazole 150 mg tabs completed fluconazole 150 mg tabs [place] ([facility]) Insurance Providers Payer name Policy type / Coverage type Policy ID Covered alliance party ID Covered alliance party's relationship to corrales Policy [place] Plan Information [facility] [id number] SP [id number] Medicaid P [id number] S [id number] MEDICAID [id number] SP [id number] [facility] [id number] SP [id number] [facility] Comm Plan Medicaid F [id number] SELF [id number] [facility] Comm Plan Medicaid F [id number] [facility] [id number] [facility] .[id number] Self [facility] MCDO [id number] SP [id number] Medicaid [facility] Healthcare S D [id number] SELF [id number] [facility] MEDICAID [id number] [place] [id number] [facility] [id number] [facility] [id number] [facility] Community Plan Commercial [id number] Self [id number] [facility] Community Plan Commercial [id number] Self [id number] [facility] [id number] ANSI-Medicaid [id number] [facility] Community Plan Commercial [id number] Self [id number] [facility] Community Plan Commercial [id number] Self [id number] [facility] Community Plan Commercial [id number] Self [id number] [facility] Community Plan Commercial [id number] Self [id number] [facility] Community Plan Commercial [id number] Self [id number] [facility] Community Plan Commercial [id number] Self [id number] [facility] Health Maintenance Organization (HMO) [id number] Self [id number] [facility] Community Plan Commercial [id number] Self [id number] [facility] Community Plan Commercial [id number] Self [id number] [facility] Community Plan Commercial [id number] Self [id number] [facility] Community Plan Commercial [id number] Self [id number] [facility] Community Plan Commercial [id number] Self [id number] [facility] Comm Plan Medicaid F [id number] SELF [id number] [facility] Health Maintenance Organization (HMO) [id number] Self [id number] [facility] Health Maintenance Organization (O) [id number] Self [id number] MEDICAID M [id number] S [id number] [facility] Health Maintenance Organization (HMO) [id number] Self [id number] [facility] Health Maintenance Organization (HMO) [id number] Self [id number] [facility] Health Maintenance Organization (HMO) [id number] Self [id number] [facility] Health Maintenance Organization (HMO) [id number] Self [id number] [facility] Health Maintenance Organization (HMO) [id number] Self MEDICAID [id number] SP [id number] SELF PAY UNAVAILABLE SP UNAVAILA BLE ESURANCE [id number] SP [id number] ESURANCE [id number] SP [id number] [facility] [id number] [facility] [id number] [place] [employer] [place] [id number] 2 [id number] [place] [employer] [place] [id number] SP [id number] [facility] [id number] SP [id number] [facility] [id number] SP [id number] [facility] ADMINISTATORS [id number] [facility] [id number] SP [id number] [facility] [facility]AN [facility] [id number] SP [id number] ANSI-Medicaid [id number] ANSI-Medicaid [id number] [facility] Community Plan Commercial [id number] Self [id number] ANSI-Medicaid [id number] [facility] XIX [id number] 18 [id number] ANSI-Medicaid [id number] ANSI-Medicaid [id number] [facility] Community Plan Commercial [id number] Self [id number] Problems, Conditions, and Diagnoses No Information Surgeries/Procedures Procedure Description Date Indications Data Source(s) Immunization: Flublok Quadrivalent (18 years & older) 0.5mL IM (Influenza) 10/23/2020 12:00:00 AM EST eCW1 ([facility]) MRI SPINAL CANAL LUMBAR W/O CONTRAST MATERIAL 08/01/20 12:00:00 AM EST MEDENT ([facility]) MRI SPINAL CANAL LUMBAR W/O CONTRAST MATERIAL 08/01/20 12:00:00 AM EST MEDENT ([facility]) Results ID Date Data Source [id number] 05/11/2021 12:00:00 AM EDT [place] ([facility]) Name Value Range Interpretation Code Description Data Marie rce(s) Supporting Document(s) SARS-CoV-2 (COVID-19) RNA [Presence] in Respiratory specimen by MIRTHA with probe detection negative negative Sars-cov-2 [facility]) ID Date Data Source [id number] 05/11/2021 12:00:00 AM EDT [place] ([facility]) Name Value Range Interpretation Code Description Data Marie rce(s) Supporting Document(s) ID Date Data Source [id number] 05/11/2021 12:00:00 AM EDT [facility] Name Value Range Interpretation Code Description Data Marie rce(s) Supporting Document(s) SARS-CoV-2 NEGATIVE [facility] This lab was ordered by [facility]-COVID19 and reported by [employer]. ID Date Data Source [id number] 05/11/2021 12:00:00 AM EDT [place] ([facility]) Name Value Range Interpretation Code Description Data Marie rce(s) Supporting Document(s) SARS-CoV-2 (COVID-19) RNA [Presence] in Respiratory specimen by MIRTHA with probe detection negative negative Sars-cov-2 [facility]) ID Date Data Source [id number] 05/11/2021 12:00:00 AM EDT [place] ([facility]) Name Value Range Interpretation Code Description Data Marie rce(s) Supporting Document(s) ID Date Data Source [id number] 02/16/2021 12:00:00 AM EDT [place] ([facility]) Name Value Range Interpretation Code Description Data Marie rce(s) Supporting Document(s) ID Date Data Source [id number] 02/16/2021 12:00:00 AM EDT [place] ([facility]) Name Value Range Interpretation Code Description Data Marie rce(s) Supporting Document(s) SARS-CoV-2 (COVID-19) RNA [Presence] in Respiratory specimen by MIRTHA with probe detection negative negative Sars-cov-2 [place] ([facility]) ID Date Data Source [id number] 02/16/2021 12:00:00 AM EDT [place] ([facility]) Name Value Range Interpretation Code Description Data Marie rce(s) Supporting Document(s) ID Date Data Source [id number] 02/16/2021 12:00:00 AM EDT [place] ([facility]) Name Value Range Interpretation Code Description Data Marie rce(s) Supporting Document(s) ID Date Data Source [id number] 02/16/2021 12:00:00 AM EDT [place] ([facility]) Name Value Range Interpretation Code Description Data Marie rce(s) Supporting Document(s) SARS-CoV-2 (COVID-19) RNA [Presence] in Respiratory specimen by MIRTHA with probe detection negative negative Sars-cov-2 [place] ([facility]) ID Date Data Source [id number] 02/16/2021 12:00:00 AM EDT [place] ([facility]) Name Value Range Interpretation Code Description Data Marie rce(s) Supporting Document(s) ID Date Data Source [id number] 02/16/2021 12:00:00 AM EDT [place] ([facility]) Name Value Range Interpretation Code Description Data Marie rce(s) Supporting Document(s) ID Date Data Source [id number] 02/16/2021 12:00:00 AM EDT [place] ([facility]) Name Value Range Interpretation Code Description Data Marie rce(s) Supporting Document(s) SARS-CoV-2 (COVID-19) RNA [Presence] in Respiratory specimen by MIRTHA with probe detection negative negative Sars-cov-2 [place] ([facility]) ID Date Data Source [id number] 02/16/2021 12:00:00 AM EDT [place] ([facility]) Name Value Range Interpretation Code Description Data Marie rce(s) Supporting Document(s) ID Date Data Source [id number] 02/16/2021 12:00:00 AM EDT [place] ([facility]) Name Value Range Interpretation Code Description Data Marie rce(s) Supporting Document(s) ID Date Data Source [id number] 02/16/2021 12:00:00 AM EDT [place] ([facility]) Name Value Range Interpretation Code Description Data Marie rce(s) Supporting Document(s) SARS-CoV-2 (COVID-19) RNA [Presence] in Respiratory specimen by MIRTHA with probe detection negative negative Sars-cov-2 [place] ([facility]) ID Date Data Source [id number] 02/16/2021 12:00:00 AM EDT [place] ([facility]) Name Value Range Interpretation Code Description Data Marie rce(s) Supporting Document(s) ID Date Data Source [id number] 02/16/2021 12:00:00 AM EDT [place] ([facility]) Name Value Range Interpretation Code Description Data Marie rce(s) Supporting Document(s) ID Date Data Source [id number] 02/16/2021 12:00:00 AM EDT [facility]) Name Value Range Interpretation Code Description Data Marie rce(s) Supporting Document(s) SARS-CoV-2 (COVID-19) RNA [Presence] in Respiratory specimen by MIRTHA with probe detection negative [facility] Date Data Source [id number] 02/16/2021 12:00:00 AM EDT [facility]) Name Value Range Interpretation Code Description Data Marie rce(s) Supporting Document(s) ID Date Data Source [id number] 02/16/2021 12:00:00 AM EDT [facility]) Name Value Range Interpretation Code Description Data Marie rce(s) Supporting Document(s) ID Date Data Source [id number] 02/16/2021 12:00:00 AM EDT [facility]) Name Value Range Interpretation Code Description Data Marie rce(s) Supporting Document(s) SARS-CoV-2 (COVID-19) RNA [Presence] in Respiratory specimen by MIRTHA with probe detection negative negative [facility] ID Date Data Source [id number] 02/16/2021 12:00:00 AM EDT [facility]) Name Value Range Interpretation Code Description Data Marie rce(s) Supporting Document(s) ID Date Data Source [id number] 02/16/2021 12:00:00 AM EDT [facility]) Name Value Range Interpretation Code Description Data Marie rce(s) Supporting Document(s) SARS-CoV-2 (COVID-19) RNA [Presence] in Respiratory specimen by MIRTHA with probe detection negative negative Sars-cov-2 [place] ([facility]) ID Date Data Source [id number] 02/16/2021 12:00:00 AM EDT [place] ([facility]) Name Value Range Interpretation Code Description Data Marie rce(s) Supporting Document(s) ID Date Data Source [id number] 02/16/2021 12:00:00 AM EDT [place] ([facility]) Name Value Range Interpretation Code Description Data Marie rce(s) Supporting Document(s) ID Date Data Source [id number] 02/16/2021 12:00:00 AM EDT [facility] Name Value Range Interpretation Code Description Data Marie rce(s) Supporting Document(s) [facility] was ordered by [facility]-COVID19 and reported by [employer]. ID Date Data Source [id number] 12/01/2020 12:00:00 AM EST [place] ([facility]) Name Value Range Interpretation Code Description Data Marie rce(s) Supporting Document(s) SARS-CoV-2 (COVID-19) RNA [Presence] in Respiratory specimen by MIRTHA with probe detection negative negative [facility] ID Date Data Source [id number] 12/01/2020 12:00:00 AM EST [place] ([facility]) Name Value Range Interpretation Code Description Data Marie rce(s) Supporting Document(s) ID Date Data Source [id number] 12/01/2020 12:00:00 AM EST [place] ([facility]) Name Value Range Interpretation Code Description Data Marie rce(s) Supporting Document(s) SARS-CoV-2 (COVID-19) RNA [Presence] in Respiratory specimen by MIRTHA with probe detection negative negative Sars-cov-2 [place] ([facility]) ID Date Data Source [id number] 12/01/2020 12:00:00 AM EST [place] ([facility]) Name Value Range Interpretation Code Description Data Marie rce(s) Supporting Document(s) ID Date Data Source [id number] 12/01/2020 12:00:00 AM EST [place] ([facility]) Name Value Range Interpretation Code Description Data Marie rce(s) Supporting Document(s) SARS-CoV-2 (COVID-19) RNA [Presence] in Respiratory specimen by MIRTHA with probe detection negative negative Sars-cov-2 [place] ([facility]) ID Date Data Source [id number] 12/01/2020 12:00:00 AM EST [place] ([facility]) Name Value Range Interpretation Code Description Data Marie rce(s) Supporting Document(s) ID Date Data Source [id number] 12/01/2020 12:00:00 AM EST [place] ([facility]) Name Value Range Interpretation Code Description Data Marie rce(s) Supporting Document(s) SARS-CoV-2 (COVID-19) RNA [Presence] in Respiratory specimen by MIRTHA with probe detection negative negative Sars-cov-2 [place] ([facility]) ID Date Data Source [id number] 12/01/2020 12:00:00 AM EST [place] ([facility]) Name Value Range Interpretation Code Description Data Marie rce(s) Supporting Document(s) SARS-CoV-2 (COVID-19) RNA [Presence] in Respiratory specimen by MIRTHA with probe detection negative negative Sars-cov-2 [place] ([facility]) ID Date Data Source [id number] 12/01/2020 12:00:00 AM EST [place] ([facility]) Name Value Range Interpretation Code Description Data Marie rce(s) Supporting Document(s) ID Date Data Source [id number] 12/01/2020 12:00:00 AM EST [place] ([facility]) Name Value Range Interpretation Code Description Data Marie rce(s) Supporting Document(s) ID Date Data Source [id number] 12/01/2020 12:00:00 AM EST [place] ([facility]) Name Value Range Interpretation Code Description Data Marie rce(s) Supporting Document(s) SARS-CoV-2 (COVID-19) RNA [Presence] in Respiratory specimen by MIRTHA with probe detection negative negative Sars-cov-2 [place] ([facility]) ID Date Data Source [id number] 12/01/2020 12:00:00 AM EST [place] ([facility]) Name Value Range Interpretation Code Description Data Marie rce(s) Supporting Document(s) ID Date Data Source [id number] 12/01/2020 12:00:00 AM EST [place] ([facility]) Name Value Range Interpretation Code Description Data Marie rce(s) Supporting Document(s) SARS-CoV-2 (COVID-19) RNA [Presence] in Respiratory specimen by MIRTHA with probe detection negative negative Sars-cov-2 [place] ([facility]) ID Date Data Source [id number] 12/01/2020 12:00:00 AM EST [place] ([facility]) Name Value Range Interpretation Code Description Data Marie rce(s) Supporting Document(s) ID Date Data Source [id number] 12/01/2020 12:00:00 AM EST [place] ([facility]) Name Value Range Interpretation Code Description Data Marie rce(s) Supporting Document(s) SARS-CoV-2 (COVID-19) RNA [Presence] in Respiratory specimen by MIRTHA with probe detection negative negative Sars-cov-2 [place] ([facility]) ID Date Data Source [id number] 12/01/2020 12:00:00 AM EST [place] ([facility]) Name Value Range Interpretation Code Description Data Marie rce(s) Supporting Document(s) ID Date Data Source [id number] 12/01/2020 12:00:00 AM EST [place] ([facility]) Name Value Range Interpretation Code Description Data Marie rce(s) Supporting Document(s) SARS-CoV-2 (COVID-19) RNA [Presence] in Respiratory specimen by MIRTHA with probe detection negative negative Sars-cov-2 [place] ([facility]) ID Date Data Source [id number] 12/01/2020 12:00:00 AM EST [place] ([facility]) Name Value Range Interpretation Code Description Data Marie rce(s) Supporting Document(s) ID Date Data Source [id number] 12/01/2020 12:00:00 AM EST [place] ([facility]) Name Value Range Interpretation Code Description Data Marie rce(s) Supporting Document(s) SARS-CoV-2 (COVID-19) RNA [Presence] in Respiratory specimen by MIRTHA with probe detection negative negative Sars-cov-2 [place] ([facility]) ID Date Data Source [id number] 12/01/2020 12:00:00 AM EST [place] ([facility]) Name Value Range Interpretation Code Description Data Marie rce(s) Supporting Document(s) ID Date Data Source [id number] 12/01/2020 12:00:00 AM EST [place] ([facility]) Name Value Range Interpretation Code Description Data Marie rce(s) Supporting Document(s) SARS-CoV-2 (COVID-19) RNA [Presence] in Respiratory specimen by MIRTHA with probe detection negative negative Sars-cov-2 [place] ([facility]) ID Date Data Source [id number] 12/01/2020 12:00:00 AM EST [place] ([facility]) Name Value Range Interpretation Code Description Data Marie rce(s) Supporting Document(s) ID Date Data Source [id number] 12/01/2020 12:00:00 AM EST [facility] Name Value Range Interpretation Code Description Data Marie rce(s) Supporting Document(s) SARS-CoV-2 NEGATIVE [facility] This lab was ordered by [facility]-COVID19 and reported by [employer]. ID Date Data Source [id number] 12/01/2020 12:00:00 AM EST [place] ([facility]) Name Value Range Interpretation Code Description Data Marie rce(s) Supporting Document(s) SARS-CoV-2 (COVID-19) RNA [Presence] in Respiratory specimen by MIRTHA with probe detection negative negative Sars-cov-2 [place] ([facility]) ID Date Data Source [id number] 12/01/2020 12:00:00 AM EST [place] ([facility]) Name Value Range Interpretation Code Description Data Marie rce(s) Supporting Document(s) ID Date Data Source [id number] 12/01/2020 12:00:00 AM EST [place] ([facility]) Name Value Range Interpretation Code Description Data Amrie rce(s) Supporting Document(s) SARS-CoV-2 (COVID-19) RNA [Presence] in Respiratory specimen by MIRTHA with probe detection negative negative Sars-cov-2 [place] ([facility]) ID Date Data Source [id number] 12/01/2020 12:00:00 AM EST [place] ([facility]) Name Value Range Interpretation Code Description Data Marie rce(s) Supporting Document(s) ID Date Data Source [id number] 11/21/2020 12:00:00 AM EST [place] ([facility]) Name Value Range Interpretation Code Description Data Marie rce(s) Supporting Document(s) SARS-CoV-2 (COVID-19) RNA [Presence] in Respiratory specimen by MIRTHA with probe detection negative negative Sars-cov-2 [place] ([facility]) ID Date Data Source [id number] 11/21/2020 12:00:00 AM EST [place] ([facility]) Name Value Range Interpretation Code Description Data Marie rce(s) Supporting Document(s) ID Date Data Source [id number] 11/21/2020 12:00:00 AM EST [place] ([facility]) Name Value Range Interpretation Code Description Data Marie rce(s) Supporting Document(s) SARS-CoV-2 (COVID-19) RNA [Presence] in Respiratory specimen by MIRTHA with probe detection negative negative Sars-cov-2 [place] ([facility]) ID Date Data Source [id number] 11/21/2020 12:00:00 AM EST [place] ([facility]) Name Value Range Interpretation Code Description Data Marie rce(s) Supporting Document(s) ID Date Data Source [id number] 11/21/2020 12:00:00 AM EST [place] ([facility]) Name Value Range Interpretation Code Description Data Marie rce(s) Supporting Document(s) SARS-CoV-2 (COVID-19) RNA [Presence] in Respiratory specimen by MIRTHA with probe detection negative negative Sars-cov-2 [place] ([facility]) ID Date Data Source [id number] 11/21/2020 12:00:00 AM EST [place] ([facility]) Name Value Range Interpretation Code Description Data Marie rce(s) Supporting Document(s) ID Date Data Source [id number] 11/21/2020 12:00:00 AM EST [place] ([facility]) Name Value Range Interpretation Code Description Data Marie rce(s) Supporting Document(s) SARS-CoV-2 (COVID-19) RNA [Presence] in Respiratory specimen by MIRTHA with probe detection negative negative Sars-cov-2 [place] ([facility]) ID Date Data Source [id number] 11/21/2020 12:00:00 AM EST [place] ([facility]) Name Value Range Interpretation Code Description Data Marie rce(s) Supporting Document(s) ID Date Data Source [id number] 11/21/2020 12:00:00 AM EST [place] ([facility]) Name Value Range Interpretation Code Description Data Marie rce(s) Supporting Document(s) SARS-CoV-2 (COVID-19) RNA [Presence] in Respiratory specimen by MIRTHA with probe detection negative negative Sars-cov-2 [place] ([facility]) ID Date Data Source [id number] 11/21/2020 12:00:00 AM EST [place] ([facility]) Name Value Range Interpretation Code Description Data Marie rce(s) Supporting Document(s) ID Date Data Source [id number] 11/21/2020 12:00:00 AM EST [place] ([facility]) Name Value Range Interpretation Code Description Data Marie rce(s) Supporting Document(s) SARS-CoV-2 (COVID-19) RNA [Presence] in Respiratory specimen by MIRTHA with probe detection negative negative Sars-cov-2 [place] ([facility]) ID Date Data Source [id number] 11/21/2020 12:00:00 AM EST [place] ([facility]) Name Value Range Interpretation Code Description Data Marie rce(s) Supporting Document(s) SARS-CoV-2 (COVID-19) RNA [Presence] in Respiratory specimen by MIRTHA with probe detection negative negative Sars-cov-2 [place] ([facility]) ID Date Data Source [id number] 11/21/2020 12:00:00 AM EST [place] ([facility]) Name Value Range Interpretation Code Description Data Marie rce(s) Supporting Document(s) ID Date Data Source [id number] 11/21/2020 12:00:00 AM EST [place] ([facility]) Name Value Range Interpretation Code Description Data Marie rce(s) Supporting Document(s) ID Date Data Source [id number] 11/21/2020 12:00:00 AM EST [place] ([facility]) Name Value Range Interpretation Code Description Data Marie rce(s) Supporting Document(s) SARS-CoV-2 (COVID-19) RNA [Presence] in Respiratory specimen by MIRTHA with probe detection negative negative Sars-cov-2 [place] ([facility]) ID Date Data Source [id number] 11/21/2020 12:00:00 AM EST [place] ([facility]) Name Value Range Interpretation Code Description Data Marie rce(s) Supporting Document(s) ID Date Data Source [id number] 11/21/2020 12:00:00 AM EST [place] ([facility]) Name Value Range Interpretation Code Description Data Marie rce(s) Supporting Document(s) SARS-CoV-2 (COVID-19) RNA [Presence] in Respiratory specimen by MIRTHA with probe detection negative negative Sars-cov-2 [place] ([facility]) ID Date Data Source [id number] 11/21/2020 12:00:00 AM EST [place] ([facility]) Name Value Range Interpretation Code Description Data Marie rce(s) Supporting Document(s) ID Date Data Source [id number] 11/21/2020 12:00:00 AM EST [place] ([facility]) Name Value Range Interpretation Code Description Data Marie rce(s) Supporting Document(s) SARS-CoV-2 (COVID-19) RNA [Presence] in Respiratory specimen by MIRTHA with [facility] detection [facility] ID Date Data Source [id number] 11/21/2020 12:00:00 AM EST [place] ([facility]) Name Value Range Interpretation Code Description Data Marie rce(s) Supporting Document(s) ID Date Data Source [id number] 11/21/2020 12:00:00 AM EST [place] ([facility]) Name Value Range Interpretation Code Description Data Marie rce(s) Supporting Document(s) SARS-CoV-2 (COVID-19) RNA [Presence] in Respiratory specimen by MIRTHA with probe detection negative negative [facility] ID Date Data Source [id number] 11/21/2020 12:00:00 AM EST [place] ([facility]) Name Value Range Interpretation Code Description Data Marie rce(s) Supporting Document(s) ID Date Data Source [id number] 11/21/2020 12:00:00 AM EST [place] ([facility]) Name Value Range Interpretation Code Description Data Marie rce(s) Supporting Document(s) SARS-CoV-2 (COVID-19) RNA [Presence] in Respiratory specimen by MIRTHA with probe detection negative negative Sars-cov-2 [place] ([facility]) ID Date Data Source [id number] 11/21/2020 12:00:00 AM EST [place] ([facility]) Name Value Range Interpretation Code Description Data Marie rce(s) Supporting Document(s) ID Date Data Source [id number] 11/21/2020 12:00:00 AM EST [place] ([facility]) Name Value Range Interpretation Code Description Data Marie rce(s) Supporting Document(s) SARS-CoV-2 (COVID-19) RNA [Presence] in Respiratory specimen by MIRTHA with probe detection negative negative Sars-cov-2 [place] ([facility]) ID Date Data Source [id number] 11/21/2020 12:00:00 AM EST [place] ([facility]) Name Value Range Interpretation Code Description Data Marie rce(s) Supporting Document(s) ID Date Data Source [id number] 11/21/2020 12:00:00 AM EST [place] ([facility]) Name Value Range Interpretation Code Description Data Marie rce(s) Supporting Document(s) SARS-CoV-2 (COVID-19) RNA [Presence] in Respiratory specimen by MIRTHA with probe detection negative negative Sars-cov-2 [place] ([facility]) ID Date Data Source [id number] 11/21/2020 12:00:00 AM EST [place] ([facility]) Name Value Range Interpretation Code Description Data Marie rce(s) Supporting Document(s) ID Date Data Source [id number] 11/21/2020 12:00:00 AM EST [place] ([facility]) Name Value Range Interpretation Code Description Data Marie rce(s) Supporting Document(s) SARS-CoV-2 (COVID-19) RNA [Presence] in Respiratory specimen by MIRTHA with probe detection negative negative Sars-cov-2 [place] ([facility]) ID Date Data Source [id number] 11/21/2020 12:00:00 AM EST [place] ([facility]) Name Value Range Interpretation Code Description Data Marie rce(s) Supporting Document(s) ID Date Data Source [id number] 11/21/2020 12:00:00 AM EST [facility] Name Value Range Interpretation Code Description Data Marie rce(s) Supporting Document(s) SARS-CoV-2 NEGATIVE [facility] This lab was ordered by [facility]-COVID19 and reported by [employer]. ID Date Data Source [id number] 11/10/2020 12:00:00 AM EST [place] ([facility]) Name Value Range Interpretation Code Description Data Marie rce(s) Supporting Document(s) ID Date Data Source [id number] 11/10/2020 12:00:00 AM EST [place] ([facility]) Name Value Range Interpretation Code Description Data Marie rce(s) Supporting Document(s) SARS-CoV-2 (COVID-19) RNA [Presence] in Respiratory specimen by MIRTHA with probe detection negative negative Sars-cov-2 [place] ([facility]) ID Date Data Source [id number] 11/10/2020 12:00:00 AM EST [place] ([facility]) Name Value Range Interpretation Code Description Data Marie rce(s) Supporting Document(s) ID Date Data Source [id number] 11/10/2020 12:00:00 AM EST [place] ([facility]) Name Value Range Interpretation Code Description Data Marie rce(s) Supporting Document(s) SARS-CoV-2 (COVID-19) RNA [Presence] in Respiratory specimen by MIRTHA with probe detection negative negative Sars-cov-2 [place] ([facility]) ID Date Data Source [id number] 11/10/2020 12:00:00 AM EST [place] ([facility]) Name Value Range Interpretation Code Description Data Marie rce(s) Supporting Document(s) ID Date Data Source [id number] 11/10/2020 12:00:00 AM EST [place] ([facility]) Name Value Range Interpretation Code Description Data Marie rce(s) Supporting Document(s) SARS-CoV-2 (COVID-19) RNA [Presence] in Respiratory specimen by MIRTHA with probe detection negative negative Sars-cov-2 [place] ([facility]) ID Date Data Source [id number] 11/10/2020 12:00:00 AM EST [place] ([facility]) Name Value Range Interpretation Code Description Data Marie rce(s) Supporting Document(s) ID Date Data Source [id number] 11/10/2020 12:00:00 AM EST [place] ([facility]) Name Value Range Interpretation Code Description Data Marie rce(s) Supporting Document(s) SARS-CoV-2 (COVID-19) RNA [Presence] in Respiratory specimen by MIRTHA with probe detection negative negative Sars-cov-2 [place] ([facility]) ID Date Data Source [id number] 11/10/2020 12:00:00 AM EST [place] ([facility]) Name Value Range Interpretation Code Description Data Marie rce(s) Supporting Document(s) ID Date Data Source [id number] 11/10/2020 12:00:00 AM EST [place] ([facility]) Name Value Range Interpretation Code Description Data Marie rce(s) Supporting Document(s) SARS-CoV-2 (COVID-19) RNA [Presence] in Respiratory specimen by MIRTHA with probe detection negative negative Sars-cov-2 [place] ([facility]) ID Date Data Source [id number] 11/10/2020 12:00:00 AM EST [place] ([facility]) Name Value Range Interpretation Code Description Data Marie rce(s) Supporting Document(s) ID Date Data Source [id number] 11/10/2020 12:00:00 AM EST [place] ([facility]) Name Value Range Interpretation Code Description Data Marie rce(s) Supporting Document(s) SARS-CoV-2 (COVID-19) RNA [Presence] in Respiratory specimen by MIRTHA with probe detection negative negative Sars-cov-2 [place] ([facility]) ID Date Data Source [id number] 11/10/2020 12:00:00 AM EST [place] ([facility]) Name Value Range Interpretation Code Description Data Marie rce(s) Supporting Document(s) ID Date Data Source [id number] 11/10/2020 12:00:00 AM EST [place] ([facility]) Name Value Range Interpretation Code Description Data Marie rce(s) Supporting Document(s) SARS-CoV-2 (COVID-19) RNA [Presence] in Respiratory specimen by MIRTHA with probe detection negative negative Sars-cov-2 [place] ([facility]) ID Date Data Source [id number] 11/10/2020 12:00:00 AM EST [place] ([facility]) Name Value Range Interpretation Code Description Data Marie rce(s) Supporting Document(s) ID Date Data Source [id number] 11/10/2020 12:00:00 AM EST [place] ([facility]) Name Value Range Interpretation Code Description Data Marie rce(s) Supporting Document(s) SARS-CoV-2 (COVID-19) RNA [Presence] in Respiratory specimen by MIRTHA with probe detection negative negative Sars-cov-2 [place] ([facility]) ID Date Data Source [id number] 11/10/2020 12:00:00 AM EST [place] ([facility]) Name Value Range Interpretation Code Description Data Marie rce(s) Supporting Document(s) ID Date Data Source [id number] 11/10/2020 12:00:00 AM EST [place] ([facility]) Name Value Range Interpretation Code Description Data Marie rce(s) Supporting Document(s) SARS-CoV-2 (COVID-19) RNA [Presence] in Respiratory specimen by MIRTHA with probe detection negative negative Sars-cov-2 [place] ([facility]) ID Date Data Source [id number] 11/10/2020 12:00:00 AM EST [place] ([facility]) Name Value Range Interpretation Code Description Data Marie rce(s) Supporting Document(s) ID Date Data Source [id number] 11/10/2020 12:00:00 AM EST [place] ([facility]) Name Value Range Interpretation Code Description Data Marie rce(s) Supporting Document(s) SARS-CoV-2 (COVID-19) RNA [Presence] in Respiratory specimen by MIRTHA with probe detection negative negative Sars-cov-2 [place] ([facility]) ID Date Data Source [id number] 11/10/2020 12:00:00 AM EST [place] ([facility]) Name Value Range Interpretation Code Description Data Marie rce(s) Supporting Document(s) ID Date Data Source [id number] 11/10/2020 12:00:00 AM EST [place] ([facility]) Name Value Range Interpretation Code Description Data Marie rce(s) Supporting Document(s) SARS-CoV-2 (COVID-19) RNA [Presence] in Respiratory specimen by MIRTHA with probe detection negative negative Sars-cov-2 [place] ([facility]) ID Date Data Source [id number] 11/10/2020 12:00:00 AM EST [place] ([facility]) Name Value Range Interpretation Code Description Data Marie rce(s) Supporting Document(s) ID Date Data Source [id number] 11/10/2020 12:00:00 AM EST [place] ([facility]) Name Value Range Interpretation Code Description Data Marie rce(s) Supporting Document(s) SARS-CoV-2 (COVID-19) RNA [Presence] in Respiratory specimen by MIRTHA with probe detection negative negative Sars-cov-2 [place] ([facility]) ID Date Data Source [id number] 11/10/2020 12:00:00 AM EST [place] ([facility]) Name Value Range Interpretation Code Description Data Marie rce(s) Supporting Document(s) SARS-CoV-2 (COVID-19) RNA [Presence] in Respiratory specimen by MIRTHA with probe detection negative negative Sars-cov-2 [place] ([facility]) ID Date Data Source [id number] 11/10/2020 12:00:00 AM EST [place] ([facility]) Name Value Range Interpretation Code Description Data Marie rce(s) Supporting Document(s) ID Date Data Source [id number] 11/10/2020 12:00:00 AM EST [place] ([facility]) Name Value Range Interpretation Code Description Data Marie rce(s) Supporting Document(s) SARS-CoV-2 (COVID-19) RNA [Presence] in Respiratory specimen by MIRTHA with probe detection negative negative Sars-cov-2 [place] ([facility]) ID Date Data Source [id number] 11/10/2020 12:00:00 AM EST [place] ([facility]) Name Value Range Interpretation Code Description Data Marie rce(s) Supporting Document(s) ID Date Data Source [id number] 11/10/2020 12:00:00 AM EST [place] ([facility]) Name Value Range Interpretation Code Description Data Marie rce(s) Supporting Document(s) SARS-CoV-2 (COVID-19) RNA [Presence] in Respiratory specimen by MIRTHA with probe detection negative negative Sars-cov-2 [place] ([facility]) ID Date Data Source [id number] 11/10/2020 12:00:00 AM EST [place] ([facility]) Name Value Range Interpretation Code Description Data Marie rce(s) Supporting Document(s) ID Date Data Source [id number] 11/10/2020 12:00:00 AM EST [place] ([facility]) Name Value Range Interpretation Code Description Data Marie rce(s) Supporting Document(s) SARS-CoV-2 (COVID-19) RNA [Presence] in Respiratory specimen by MIRTHA with probe detection negative negative Sars-cov-2 [place] ([facility]) ID Date Data Source [id number] 11/10/2020 12:00:00 AM EST [place] ([facility]) Name Value Range Interpretation Code Description Data Marie rce(s) Supporting Document(s) ID Date Data Source [id number] 11/10/2020 12:00:00 AM EST [facility] Name Value Range Interpretation Code Description Data Marie rce(s) Supporting Document(s) SARS-CoV-2 NEGATIVE [facility] This lab was ordered by [facility]-COVID19 and reported by [employer]. ID Date Data Source [id number] 10/15/2020 12:00:00 AM EST [place] ([facility]) Name Value Range Interpretation Code Description Data Marie rce(s) Supporting Document(s) SARS-CoV-2 (COVID-19) RNA [Presence] in Respiratory specimen by MIRTHA with probe detection negative negative Sars-cov-2 [place] ([facility]) ID Date Data Source [id number] 10/15/2020 12:00:00 AM EST [place] ([facility]) Name Value Range Interpretation Code Description Data Marie rce(s) Supporting Document(s) ID Date Data Source [id number] 10/15/2020 12:00:00 AM EST [place] ([facility]) Name Value Range Interpretation Code Description Data Marie rce(s) Supporting Document(s) SARS-CoV-2 (COVID-19) RNA [Presence] in Respiratory specimen by MIRTHA with probe detection negative negative Sars-cov-2 [place] ([facility]) ID Date Data Source [id number] 10/15/2020 12:00:00 AM EST [place] ([facility]) Name Value Range Interpretation Code Description Data Marie rce(s) Supporting Document(s) ID Date Data Source [id number] 10/15/2020 12:00:00 AM EST [place] ([facility]) Name Value Range Interpretation Code Description Data Marie rce(s) Supporting Document(s) SARS-CoV-2 (COVID-19) RNA [Presence] in Respiratory specimen by MIRTHA with probe detection negative negative Sars-cov-2 [place] ([facility]) ID Date Data Source [id number] 10/15/2020 12:00:00 AM EST [place] ([facility]) Name Value Range Interpretation Code Description Data Marie rce(s) Supporting Document(s) ID Date Data Source [id number] 10/15/2020 12:00:00 AM EST [place] ([facility]) Name Value Range Interpretation Code Description Data Marie rce(s) Supporting Document(s) SARS-CoV-2 (COVID-19) RNA [Presence] in Respiratory specimen by MIRTHA with probe detection negative negative Sars-cov-2 [place] ([facility]) ID Date Data Source [id number] 10/15/2020 12:00:00 AM EST [place] ([facility]) Name Value Range Interpretation Code Description Data Marie rce(s) Supporting Document(s) ID Date Data Source [id number] 10/15/2020 12:00:00 AM EST [place] ([facility]) Name Value Range Interpretation Code Description Data Marie rce(s) Supporting Document(s) SARS-CoV-2 (COVID-19) RNA [Presence] in Respiratory specimen by MIRTHA with probe detection negative negative Sars-cov-2 [place] ([facility]) ID Date Data Source [id number] 10/15/2020 12:00:00 AM EST [place] ([facility]) Name Value Range Interpretation Code Description Data Marie rce(s) Supporting Document(s) ID Date Data Source [id number] 10/15/2020 12:00:00 AM EST [place] ([facility]) Name Value Range Interpretation Code Description Data Marie rce(s) Supporting Document(s) SARS-CoV-2 (COVID-19) RNA [Presence] in Respiratory specimen by MIRTHA with probe detection negative negative Sars-cov-2 [place] ([facility]) ID Date Data Source [id number] 10/15/2020 12:00:00 AM EST [place] ([facility]) Name Value Range Interpretation Code Description Data Marie rce(s) Supporting Document(s) ID Date Data Source [id number] 10/15/2020 12:00:00 AM EST [place] ([facility]) Name Value Range Interpretation Code Description Data Marie rce(s) Supporting Document(s) SARS-CoV-2 (COVID-19) RNA [Presence] in Respiratory specimen by MIRTHA with probe detection negative negative Sars-cov-2 [place] ([facility]) ID Date Data Source [id number] 10/15/2020 12:00:00 AM EST [place] ([facility]) Name Value Range Interpretation Code Description Data Marie rce(s) Supporting Document(s) ID Date Data Source [id number] 10/15/2020 12:00:00 AM EST [place] ([facility]) Name Value Range Interpretation Code Description Data Marie rce(s) Supporting Document(s) SARS-CoV-2 (COVID-19) RNA [Presence] in Respiratory specimen by MIRTHA with probe detection negative negative Sars-cov-2 [place] ([facility]) ID Date Data Source [id number] 10/15/2020 12:00:00 AM EST [place] ([facility]) Name Value Range Interpretation Code Description Data Marie rce(s) Supporting Document(s) ID Date Data Source [id number] 10/15/2020 12:00:00 AM EST [place] ([facility]) Name Value Range Interpretation Code Description Data Marie rce(s) Supporting Document(s) SARS-CoV-2 (COVID-19) RNA [Presence] in Respiratory specimen by MIRTHA with probe detection negative negative Sars-cov-2 [place] ([facility]) ID Date Data Source [id number] 10/15/2020 12:00:00 AM EST [place] ([facility]) Name Value Range Interpretation Code Description Data Marie rce(s) Supporting Document(s) ID Date Data Source [id number] 10/15/2020 12:00:00 AM EST [place] ([facility]) Name Value Range Interpretation Code Description Data Marie rce(s) Supporting Document(s) SARS-CoV-2 (COVID-19) RNA [Presence] in Respiratory specimen by MIRTHA with probe detection negative negative Sars-cov-2 [place] ([facility]) ID Date Data Source [id number] 10/15/2020 12:00:00 AM EST [place] ([facility]) Name Value Range Interpretation Code Description Data Marie rce(s) Supporting Document(s) ID Date Data Source [id number] 10/15/2020 12:00:00 AM EST [place] ([facility]) Name Value Range Interpretation Code Description Data Marie rce(s) Supporting Document(s) SARS-CoV-2 (COVID-19) RNA [Presence] in Respiratory specimen by MIRTHA with probe detection negative negative Sars-cov-2 [place] ([facility]) ID Date Data Source [id number] 10/15/2020 12:00:00 AM EST [place] ([facility]) Name Value Range Interpretation Code Description Data Marie rce(s) Supporting Document(s) ID Date Data Source [id number] 10/15/2020 12:00:00 AM EST [place] ([facility]) Name Value Range Interpretation Code Description Data Marie rce(s) Supporting Document(s) SARS-CoV-2 (COVID-19) RNA [Presence] in Respiratory specimen by MIRTHA with probe detection negative negative Sars-cov-2 [place] ([facility]) ID Date Data Source [id number] 10/15/2020 12:00:00 AM EST [place] ([facility]) Name Value Range Interpretation Code Description Data Marie rce(s) Supporting Document(s) ID Date Data Source [id number] 10/15/2020 12:00:00 AM EST [place] ([facility]) Name Value Range Interpretation Code Description Data Marie rce(s) Supporting Document(s) SARS-CoV-2 (COVID-19) RNA [Presence] in Respiratory specimen by MIRTHA with probe detection negative negative Sars-cov-2 [place] ([facility]) ID Date Data Source [id number] 10/15/2020 12:00:00 AM EST [place] ([facility]) Name Value Range Interpretation Code Description Data Marie rce(s) Supporting Document(s) ID Date Data Source [id number] 10/15/2020 12:00:00 AM EST [place] ([facility]) Name Value Range Interpretation Code Description Data Marie rce(s) Supporting Document(s) SARS-CoV-2 (COVID-19) RNA [Presence] in Respiratory specimen by MIRTHA with probe detection negative negative Sars-cov-2 [place] ([facility]) ID Date Data Source [id number] 10/15/2020 12:00:00 AM EST [place] ([facility]) Name Value Range Interpretation Code Description Data Marie rce(s) Supporting Document(s) ID Date Data Source [id number] 10/15/2020 12:00:00 AM EST [place] ([facility]) Name Value Range Interpretation Code Description Data Marie rce(s) Supporting Document(s) SARS-CoV-2 (COVID-19) RNA [Presence] in Respiratory specimen by MIRTHA with probe detection negative negative Sars-cov-2 [place] ([facility]) ID Date Data Source [id number] 10/15/2020 12:00:00 AM EST [place] ([facility]) Name Value Range Interpretation Code Description Data Marie rce(s) Supporting Document(s) ID Date Data Source [id number] 10/15/2020 12:00:00 AM EST [place] ([facility]) Name Value Range Interpretation Code Description Data Marie rce(s) Supporting Document(s) SARS-CoV-2 (COVID-19) RNA [Presence] in Respiratory specimen by MIRTHA with probe detection negative negative Sars-cov-2 [place] ([facility]) ID Date Data Source [id number] 10/15/2020 12:00:00 AM EST [place] ([facility]) Name Value Range Interpretation Code Description Data Marie rce(s) Supporting Document(s) ID Date Data Source [id number] 10/15/2020 12:00:00 AM EST [place] ([facility]) Name Value Range Interpretation Code Description Data Marie rce(s) Supporting Document(s) SARS-CoV-2 (COVID-19) RNA [Presence] in Respiratory specimen by MIRTHA with probe detection negative negative Sars-cov-2 [place] ([facility]) ID Date Data Source [id number] 10/15/2020 12:00:00 AM EST [place] ([facility]) Name Value Range Interpretation Code Description Data Marie rce(s) Supporting Document(s) ID Date Data Source [id number] 10/15/2020 12:00:00 AM EST [place] ([facility]) Name Value Range Interpretation Code Description Data Marie rce(s) Supporting Document(s) SARS-CoV-2 (COVID-19) RNA [Presence] in Respiratory specimen by MIRTHA with probe detection negative negative Sars-cov-2 [place] ([facility]) ID Date Data Source [id number] 10/15/2020 12:00:00 AM EST [place] ([facility]) Name Value Range Interpretation Code Description Data Marie rce(s) Supporting Document(s) ID Date Data Source [id number] 10/15/2020 12:00:00 AM EST [facility] Name Value Range Interpretation Code Description Data Marie rce(s) Supporting Document(s) SARS-CoV-2 NEGATIVE [facility] This lab was ordered by [facility]-COVID19 and reported by [employer]. ID Date Data Source [id number] 08/15/2020 12:00:00 AM EST [place] ([facility]) Name Value Range Interpretation Code Description Data Marie rce(s) Supporting Document(s) SARS-CoV-2 (COVID-19) RNA [Presence] in Respiratory specimen by MIRTHA with probe detection negative negative Sars-cov-2 [place] ([facility]) ID Date Data Source [id number] 08/15/2020 12:00:00 AM EST [place] ([facility]) Name Value Range Interpretation Code Description Data Marie rce(s) Supporting Document(s) ID Date Data Source [id number] 08/15/2020 12:00:00 AM EST [place] ([facility]) Name Value Range Interpretation Code Description Data Marie rce(s) Supporting Document(s) SARS-CoV-2 (COVID-19) RNA [Presence] in Respiratory specimen by MIRTHA with probe detection negative negative Sars-cov-2 [place] ([facility]) ID Date Data Source [id number] 08/15/2020 12:00:00 AM EST [place] ([facility]) Name Value Range Interpretation Code Description Data Marie rce(s) Supporting Document(s) ID Date Data Source [id number] 08/15/2020 12:00:00 AM EST [place] ([facility]) Name Value Range Interpretation Code Description Data Marie rce(s) Supporting Document(s) SARS-CoV-2 (COVID-19) RNA [Presence] in Respiratory specimen by MIRTHA with probe detection negative negative Sars-cov-2 [place] ([facility]) ID Date Data Source [id number] 08/15/2020 12:00:00 AM EST [place] ([facility]) Name Value Range Interpretation Code Description Data Marie rce(s) Supporting Document(s) ID Date Data Source [id number] 08/15/2020 12:00:00 AM EST [place] ([facility]) Name Value Range Interpretation Code Description Data Marie rce(s) Supporting Document(s) SARS-CoV-2 (COVID-19) RNA [Presence] in Respiratory specimen by MIRTHA with probe detection negative negative Sars-cov-2 [place] ([facility]) ID Date Data Source [id number] 08/15/2020 12:00:00 AM EST [place] ([facility]) Name Value Range Interpretation Code Description Data Marie rce(s) Supporting Document(s) ID Date Data Source [id number] 08/15/2020 12:00:00 AM EST [place] ([facility]) Name Value Range Interpretation Code Description Data Marie rce(s) Supporting Document(s) SARS-CoV-2 (COVID-19) RNA [Presence] in Respiratory specimen by MIRTHA with probe detection negative negative Sars-cov-2 [place] ([facility]) ID Date Data Source [id number] 08/15/2020 12:00:00 AM EST [place] ([facility]) Name Value Range Interpretation Code Description Data Marie rce(s) Supporting Document(s) ID Date Data Source [id number] 08/15/2020 12:00:00 AM EST [place] ([facility]) Name Value Range Interpretation Code Description Data Marie rce(s) Supporting Document(s) SARS-CoV-2 (COVID-19) RNA [Presence] in Respiratory specimen by MIRTHA with probe detection negative negative Sars-cov-2 [place] ([facility]) ID Date Data Source [id number] 08/15/2020 12:00:00 AM EST [place] ([facility]) Name Value Range Interpretation Code Description Data Marie rce(s) Supporting Document(s) ID Date Data Source [id number] 08/15/2020 12:00:00 AM EST [place] ([facility]) Name Value Range Interpretation Code Description Data Marie rce(s) Supporting Document(s) SARS-CoV-2 (COVID-19) RNA [Presence] in Respiratory specimen by MIRTHA with probe detection negative negative Sars-cov-2 [place] ([facility]) ID Date Data Source [id number] 08/15/2020 12:00:00 AM EST [place] ([facility]) Name Value Range Interpretation Code Description Data Marie rce(s) Supporting Document(s) ID Date Data Source [id number] 08/15/2020 12:00:00 AM EST [place] ([facility]) Name Value Range Interpretation Code Description Data Marie rce(s) Supporting Document(s) SARS-CoV-2 (COVID-19) RNA [Presence] in Respiratory specimen by MIRTHA with probe detection negative negative Sars-cov-2 [place] ([facility]) ID Date Data Source [id number] 08/15/2020 12:00:00 AM EST [place] ([facility]) Name Value Range Interpretation Code Description Data Marie rce(s) Supporting Document(s) ID Date Data Source [id number] 08/15/2020 12:00:00 AM EST [place] ([facility]) Name Value Range Interpretation Code Description Data Marie rce(s) Supporting Document(s) SARS-CoV-2 (COVID-19) RNA [Presence] in Respiratory specimen by MIRTHA with probe detection negative negative Sars-cov-2 [place] ([facility]) ID Date Data Source [id number] 08/15/2020 12:00:00 AM EST [place] ([facility]) Name Value Range Interpretation Code Description Data Marie rce(s) Supporting Document(s) ID Date Data Source [id number] 08/15/2020 12:00:00 AM EST [place] ([facility]) Name Value Range Interpretation Code Description Data Marie rce(s) Supporting Document(s) SARS-CoV-2 (COVID-19) RNA [Presence] in Respiratory specimen by MIRTHA with probe detection negative negative Sars-cov-2 [place] ([facility]) ID Date Data Source [id number] 08/15/2020 12:00:00 AM EST [place] ([facility]) Name Value Range Interpretation Code Description Data Marie rce(s) Supporting Document(s) ID Date Data Source [id number] 08/15/2020 12:00:00 AM EST [place] ([facility]) Name Value Range Interpretation Code Description Data Marie rce(s) Supporting Document(s) SARS-CoV-2 (COVID-19) RNA [Presence] in Respiratory specimen by MIRTHA with probe detection negative negative Sars-cov-2 [place] ([facility]) ID Date Data Source [id number] 08/15/2020 12:00:00 AM EST [place] ([facility]) Name Value Range Interpretation Code Description Data Marie rce(s) Supporting Document(s) ID Date Data Source [id number] 08/15/2020 12:00:00 AM EST [place] ([facility]) Name Value Range Interpretation Code Description Data Marie rce(s) Supporting Document(s) SARS-CoV-2 (COVID-19) RNA [Presence] in Respiratory specimen by MIRTHA with probe detection negative negative Sars-cov-2 [place] ([facility]) ID Date Data Source [id number] 08/15/2020 12:00:00 AM EST [place] ([facility]) Name Value Range Interpretation Code Description Data Marie rce(s) Supporting Document(s) ID Date Data Source [id number] 08/15/2020 12:00:00 AM EST [place] ([facility]) Name Value Range Interpretation Code Description Data Marie rce(s) Supporting Document(s) SARS-CoV-2 (COVID-19) RNA [Presence] in Respiratory specimen by MIRTHA with probe detection negative negative Sars-cov-2 [place] ([facility]) ID Date Data Source [id number] 08/15/2020 12:00:00 AM EST [place] ([facility]) Name Value Range Interpretation Code Description Data Marie rce(s) Supporting Document(s) ID Date Data Source [id number] 08/15/2020 12:00:00 AM EST [place] ([facility]) Name Value Range Interpretation Code Description Data Marie rce(s) Supporting Document(s) SARS-CoV-2 (COVID-19) RNA [Presence] in Respiratory specimen by MIRTHA with probe detection negative negative Sars-cov-2 [place] ([facility]) ID Date Data Source [id number] 08/15/2020 12:00:00 AM EST [place] ([facility]) Name Value Range Interpretation Code Description Data Marie rce(s) Supporting Document(s) ID Date Data Source [id number] 08/15/2020 12:00:00 AM EST [place] ([facility]) Name Value Range Interpretation Code Description Data Marie rce(s) Supporting Document(s) SARS-CoV-2 (COVID-19) RNA [Presence] in Respiratory specimen by MIRTHA with probe detection negative negative Sars-cov-2 [place] ([facility]) ID Date Data Source [id number] 08/15/2020 12:00:00 AM EST [place] ([facility]) Name Value Range Interpretation Code Description Data Marie rce(s) Supporting Document(s) ID Date Data Source [id number] 08/15/2020 12:00:00 AM EST [place] ([facility]) Name Value Range Interpretation Code Description Data Marie rce(s) Supporting Document(s) SARS-CoV-2 (COVID-19) RNA [Presence] in Respiratory specimen by MIRTHA with probe detection negative negative Sars-cov-2 [place] ([facility]) ID Date Data Source [id number] 08/15/2020 12:00:00 AM EST [place] ([facility]) Name Value Range Interpretation Code Description Data Marie rce(s) Supporting Document(s) ID Date Data Source [id number] 08/15/2020 12:00:00 AM EST [place] ([facility]) Name Value Range Interpretation Code Description Data Marie rce(s) Supporting Document(s) SARS-CoV-2 (COVID-19) RNA [Presence] in Respiratory specimen by MIRTHA with probe detection negative negative Sars-cov-2 [place] ([facility]) ID Date Data Source [id number] 08/15/2020 12:00:00 AM EST [place] ([facility]) Name Value Range Interpretation Code Description Data Marie rce(s) Supporting Document(s) ID Date Data Source [id number] 08/15/2020 12:00:00 AM EST [place] ([facility]) Name Value Range Interpretation Code Description Data Marie rce(s) Supporting Document(s) SARS-CoV-2 (COVID-19) RNA [Presence] in Respiratory specimen by MIRTHA with probe detection negative negative Sars-cov-2 [place] ([facility]) ID Date Data Source [id number] 08/15/2020 12:00:00 AM EST [place] ([facility]) Name Value Range Interpretation Code Description Data Marie rce(s) Supporting Document(s) ID Date Data Source [id number] 08/15/2020 12:00:00 AM EST [place] ([facility]) Name Value Range Interpretation Code Description Data Marie rce(s) Supporting Document(s) SARS-CoV-2 (COVID-19) RNA [Presence] in Respiratory specimen by MIRTHA with probe detection negative negative Sars-cov-2 [place] ([facility]) ID Date Data Source [id number] 08/15/2020 12:00:00 AM EST [place] ([facility]) Name Value Range Interpretation Code Description Data Marie rce(s) Supporting Document(s) ID Date Data Source [id number] 08/15/2020 12:00:00 AM EST [place] ([facility]) Name Value Range Interpretation Code Description Data Marie rce(s) Supporting Document(s) SARS-CoV-2 (COVID-19) RNA [Presence] in Respiratory specimen by MIRTHA with probe detection negative negative Sars-cov-2 [place] ([facility]) ID Date Data Source [id number] 08/15/2020 12:00:00 AM EST [place] ([facility]) Name Value Range Interpretation Code Description Data Marie rce(s) Supporting Document(s) ID Date Data Source [id number] 08/15/2020 12:00:00 AM EST [place] ([facility]) Name Value Range Interpretation Code Description Data Marie rce(s) Supporting Document(s) SARS-CoV-2 (COVID-19) RNA [Presence] in Respiratory specimen by MIRTHA with probe detection negative negative Sars-cov-2 [place] ([facility]) ID Date Data Source [id number] 08/15/2020 12:00:00 AM EST [place] ([facility]) Name Value Range Interpretation Code Description Data Marie rce(s) Supporting Document(s) ID Date Data Source [id number] 08/15/2020 12:00:00 AM EST [place] ([facility]) Name Value Range Interpretation Code Description Data Marie rce(s) Supporting Document(s) SARS coronavirus 2 RNA [Presence] in Res piratory specimen by MIRTHA with probe detection negative negative Sars-cov-2 [place] ([facility]) ID Date Data Source [id number] 08/15/2020 12:00:00 AM EST [place] ([facility]) Name Value Range Interpretation Code Description Data Marie rce(s) Supporting Document(s) ID Date Data Source [id number] 08/15/2020 12:00:00 AM EST [facility] Name Value Range Interpretation Code Description Data Marie rce(s) Supporting Document(s) SARS-CoV-2 [facility] This lab was ordered by [facility]-COVID19 and reported by [employer]. ID Date Data Source [id number] 07/11/2020 12:00:00 AM EDT [place] ([facility]) Name Value Range Interpretation Code Description Data Marie rce(s) Supporting Document(s) SARS-CoV-2 (COVID-19) RNA [Presence] in Respiratory specimen by MIRTHA with [facility] Date Data Source [id number] 07/11/2020 12:00:00 AM EDT [place] ([facility]) Name Value Range Interpretation Code Description Data Marie rce(s) Supporting Document(s) SARS-CoV-2 (COVID-19) RNA [Presence] in Respiratory specimen by MIRTHA with probe detection negative negative Sars-cov-2 [place] ([facility]) ID Date Data Source [id number] 07/11/2020 12:00:00 AM EDT [place] ([facility]) Name Value Range Interpretation Code Description Data Marie rce(s) Supporting Document(s) ID Date Data Source [id number] 07/11/2020 12:00:00 AM EDT [place] ([facility]) Name Value Range Interpretation Code Description Data Marie rce(s) Supporting Document(s) ID Date Data Source [id number] 07/11/2020 12:00:00 AM EDT [place] ([facility]) Name Value Range Interpretation Code Description Data Marie rce(s) Supporting Document(s) ID Date Data Source [id number] 07/11/2020 12:00:00 AM EDT [place] ([facility]) Name Value Range Interpretation Code Description Data Marie rce(s) Supporting Document(s) ID Date Data Source [id number] 07/11/2020 12:00:00 AM EDT [place] ([facility]) Name Value Range Interpretation Code Description Data Marie rce(s) Supporting Document(s) SARS-CoV-2 (COVID-19) RNA [Presence] in Respiratory specimen by MIRTHA with probe detection negative negative Sars-cov-2 [place] ([facility]) ID Date Data Source [id number] 07/11/2020 12:00:00 AM EDT [place] ([facility]) Name Value Range Interpretation Code Description Data Marie rce(s) Supporting Document(s) ID Date Data Source [id number] 07/11/2020 12:00:00 AM EDT [place] ([facility]) Name Value Range Interpretation Code Description Data Marie rce(s) Supporting Document(s) ID Date Data Source [id number] 07/11/2020 12:00:00 AM EDT [facility]) Name Value Range Interpretation Code Description Data Marie rce(s) Supporting Document(s) SARS-CoV-2 (COVID-19) RNA [Presence] in Respiratory specimen by MIRTHA with probe detection negative negative Sars-cov-2 [facility]) ID Date Data Source [id number] 07/11/2020 [facility] Name Value Range Interpretation Code Description Data Marie rce(s) Supporting Document(s) ID Date Data Source [id number] 07/11/2020 12:00:00 AM EDT [facility]) Name Value Range Interpretation Code Description Data Marie rce(s) Supporting Document(s) ID Date Data Source [id number] 07/11/2020 12:00:00 AM EDT [place] ([facility]) Name Value Range Interpretation Code Description Data Marie rce(s) Supporting Document(s) SARS-CoV-2 (COVID-19) RNA [Presence] in Respiratory specimen by MIRTHA with probe detection negative [facility] ID Date Data Source [id number] 07/11/2020 12:00:00 AM EDT [facility]) Name Value Range Interpretation Code Description Data Marie rce(s) Supporting Document(s) ID Date Data Source [id number] 07/11/2020 12:00:00 AM EDT [place] ([facility]) Name Value Range Interpretation Code Description Data Marie rce(s) Supporting Document(s) ID Date Data Source [id number] 07/11/2020 12:00:00 AM EDT [place] ([facility]) Name Value Range Interpretation Code Description Data Marie rce(s) Supporting Document(s) SARS-CoV-2 (COVID-19) RNA [Presence] in Respiratory specimen by MIRTHA with probe detection negative negative Sars-cov-2 [place] ([facility]) ID Date Data Source [id number] 07/11/2020 12:00:00 AM EDT [place] ([facility]) Name Value Range Interpretation Code Description Data Marie rce(s) Supporting Document(s) ID Date Data Source [id number] 07/11/2020 12:00:00 AM EDT [place] ([facility]) Name Value Range Interpretation Code Description Data Marie rce(s) Supporting Document(s) ID Date Data Source [id number] 07/11/2020 12:00:00 AM EDT [place] ([facility]) Name Value Range Interpretation Code Description Data Marie rce(s) Supporting Document(s) SARS-CoV-2 (COVID-19) RNA [Presence] in Respiratory specimen by MIRTHA with probe detection negative negative Sars-cov-2 [place] ([facility]) ID Date Data Source [id number] 07/11/2020 12:00:00 AM EDT [place] ([facility]) Name Value Range Interpretation Code Description Data Marie rce(s) Supporting Document(s) SARS-CoV-2 (COVID-19) RNA [Presence] in Respiratory specimen by MIRTHA with probe detection negative negative Sars-cov-2 [place] ([facility]) ID Date Data Source [id number] 07/11/2020 12:00:00 AM EDT [place] ([facility]) Name Value Range Interpretation Code Description Data Marie rce(s) Supporting Document(s) ID Date Data Source [id number] 07/11/2020 12:00:00 AM EDT [place] ([facility]) Name Value Range Interpretation Code Description Data Marie rce(s) Supporting Document(s) ID Date Data Source [id number] 07/11/2020 12:00:00 AM EDT [place] ([facility]) Name Value Range Interpretation Code Description Data Marie rce(s) Supporting Document(s) ID Date Data Source [id number] 07/11/2020 12:00:00 AM EDT [place] ([facility]) Name Value Range Interpretation Code Description Data Marie rce(s) Supporting Document(s) ID Date Data Source [id number] 07/11/2020 12:00:00 AM EDT [place] ([facility]) Name Value Range Interpretation Code Description Data Marie rce(s) Supporting Document(s) SARS-CoV-2 (COVID-19) RNA [Presence] in Respiratory specimen by MIRTHA with probe detection negative negative Sars-cov-2 [place] ([facility]) ID Date Data Source [id number] 07/11/2020 12:00:00 AM EDT [place] ([facility]) Name Value Range Interpretation Code Description Data Marie rce(s) Supporting Document(s) SARS-CoV-2 (COVID-19) RNA [Presence] in Respiratory specimen by MIRTHA with probe detection negative negative Sars-cov-2 [place] ([facility]) ID Date Data Source [id number] 07/11/2020 12:00:00 AM EDT [place] ([facility]) Name Value Range Interpretation Code Description Data Marie rce(s) Supporting Document(s) ID Date Data Source [id number] 07/11/2020 12:00:00 AM EDT [place] ([facility]) Name Value Range Interpretation Code Description Data Marie rce(s) Supporting Document(s) ID Date Data Source [id number] 07/11/2020 12:00:00 AM EDT [place] ([facility]) Name Value Range Interpretation Code Description Data Marie rce(s) Supporting Document(s) ID Date Data Source [id number] 07/11/2020 12:00:00 AM EDT [place] ([facility]) Name Value Range Interpretation Code Description Data Marie rce(s) Supporting Document(s) ID Date Data Source [id number] 07/11/2020 12:00:00 AM EDT [place] ([facility]) Name Value Range Interpretation Code Description Data Marie rce(s) Supporting Document(s) SARS-CoV-2 (COVID-19) RNA [Presence] in Respiratory specimen by MIRTHA with probe detection negative negative Sars-cov-2 [place] ([facility]) ID Date Data Source [id number] 07/11/2020 12:00:00 AM EDT [place] ([facility]) Name Value Range Interpretation Code Description Data Marie rce(s) Supporting Document(s) ID Date Data Source [id number] 07/11/2020 12:00:00 AM EDT [place] ([facility]) Name Value Range Interpretation Code Description Data Marie rce(s) Supporting Document(s) ID Date Data Source [id number] 07/11/2020 12:00:00 AM EDT [place] ([facility]) Name Value Range Interpretation Code Description Data Marie rce(s) Supporting Document(s) SARS-CoV-2 (COVID-19) RNA [Presence] in Respiratory specimen by MIRTHA with probe detection negative negative Sars-cov-2 [place] ([facility]) ID Date Data Source [id number] 07/11/2020 12:00:00 AM EDT [place] ([facility]) Name Value Range Interpretation Code Description Data Marie rce(s) Supporting Document(s) SARS-CoV-2 (COVID-19) RNA [Presence] in Respiratory specimen by MIRTHA with probe detection negative negative Sars-cov-2 [place] ([facility]) ID Date Data Source [id number] 07/11/2020 12:00:00 AM EDT [place] ([facility]) Name Value Range Interpretation Code Description Data Marie rce(s) Supporting Document(s) ID Date Data Source [id number] 07/11/2020 12:00:00 AM EDT [place] ([facility]) Name Value Range Interpretation Code Description Data Marie rce(s) Supporting Document(s) ID Date Data Source [id number] 07/11/2020 12:00:00 AM EDT [place] ([facility]) Name Value Range Interpretation Code Description Data Marie rce(s) Supporting Document(s) ID Date Data Source [id number] 07/11/2020 12:00:00 AM EDT [place] ([facility]) Name Value Range Interpretation Code Description Data Marie rce(s) Supporting Document(s) ID Date Data Source [id number] 07/11/2020 12:00:00 AM EDT [place] ([facility]) Name Value Range Interpretation Code Description Data Marie rce(s) Supporting Document(s) SARS-CoV-2 (COVID-19) RNA [Presence] in Respiratory specimen by MIRTHA with probe detection negative negative Sars-cov-2 [place] ([facility]) ID Date Data Source [id number] 07/11/2020 12:00:00 AM EDT [place] ([facility]) Name Value Range Interpretation Code Description Data Marie rce(s) Supporting Document(s) ID Date Data Source [id number] 07/11/2020 12:00:00 AM EDT [place] ([facility]) Name Value Range Interpretation Code Description Data Marie rce(s) Supporting Document(s) ID Date Data Source [id number] 07/11/2020 12:00:00 AM EDT [place] ([facility]) Name Value Range Interpretation Code Description Data Marie rce(s) Supporting Document(s) SARS-CoV-2 (COVID-19) RNA [Presence] in Respiratory specimen by MIRTHA with probe detection negative negative Sars-cov-2 [place] ([facility]) ID Date Data Source [id number] 07/11/2020 12:00:00 AM EDT [place] ([facility]) Name Value Range Interpretation Code Description Data Marie rce(s) Supporting Document(s) ID Date Data Source [id number] 07/11/2020 12:00:00 AM EDT [place] ([facility]) Name Value Range Interpretation Code Description Data Maire rce(s) Supporting Document(s) ID Date Data Source [id number] 07/11/2020 12:00:00 AM EDT [place] ([facility]) Name Value Range Interpretation Code Description Data Marie rce(s) Supporting Document(s) SARS-CoV-2 (COVID-19) RNA [Presence] in Respiratory specimen by MIRTHA with probe detection negative negative Sars-cov-2 [place] ([facility]) ID Date Data Source [id number] 07/11/2020 12:00:00 AM EDT RAKE ([facility]) Name Value Range Interpretation Code Description Data Marie rce(s) Supporting Document(s) ID Date Data Source [id number] 07/11/2020 12:00:00 AM EDT [place]KE ([facility]) Name Value Range Interpretation Code Description Data Marie rce(s) Supporting Document(s) ID Date Data Source [id number] 07/11/2020 12:00:00 AM EDT [place] ([facility]) Name Value Range Interpretation Code Description Data Marie rce(s) Supporting Document(s) SARS-CoV-2 (COVID-19) RNA [Presence] in Respiratory specimen by MIRTHA with probe detection negative negative Sars-cov-2 [facility] ([facility]) ID Date Data Source [id number] 07/11/2020 12:00:00 AM EDT [place] ([facility]) Name Value Range Interpretation Code Description Data Marie rce(s) Supporting Document(s) ID Date Data Source [id number] 07/11/2020 12:00:00 AM EDT [place] ([facility]) Name Value Range Interpretation Code Description Data Marie rce(s) Supporting Document(s) ID Date Data Source [id number] 07/11/2020 12:00:00 AM EDT [place] ([facility]) Name Value Range Interpretation Code Description Data Marie rce(s) Supporting Document(s) SARS-CoV-2 (COVID-19) RNA [Presence] in Respiratory specimen by MIRTHA with probe detection negative negative Sars-cov-2 [place] ([facility]) ID Date Data Source [id number] 07/11/2020 12:00:00 AM EDT [place] ([facility]) Name Value Range Interpretation Code Description Data Marie rce(s) Supporting Document(s) ID Date Data Source [id number] 07/11/2020 12:00:00 AM EDT [place] ([facility]) Name Value Range Interpretation Code Description Data Marie rce(s) Supporting Document(s) ID Date Data Source [id number] 07/11/2020 12:00:00 AM EDT [place] ([facility]) Name Value Range Interpretation Code Description Data Marie rce(s) Supporting Document(s) SARS-CoV-2 (COVID-19) RNA [Presence] in Respiratory specimen by MIRTHA with probe detection negative negative Sars-cov-2 [place] ([facility]) ID Date Data Source [id number] 07/11/2020 12:00:00 AM EDT [place] ([facility]) Name Value Range Interpretation Code Description Data Marie rce(s) Supporting Document(s) ID Date Data Source [id number] 07/11/2020 12:00:00 AM EDT [place] ([facility]) Name Value Range Interpretation Code Description Data Marie rce(s) Supporting Document(s) ID Date Data Source [id number] 07/11/2020 12:00:00 AM EDT [place] ([facility]) Name Value Range Interpretation Code Description Data Marie rce(s) Supporting Document(s) SARS-CoV-2 (COVID-19) RNA [Presence] in Respiratory specimen by MIRTHA with probe detection negative negative Sars-cov-2 [place] ([facility]) ID Date Data Source [id number] 07/11/2020 12:00:00 AM EDT [place] ([facility]) Name Value Range Interpretation Code Description Data Marie rce(s) Supporting Document(s) ID Date Data Source [id number] 07/11/2020 12:00:00 AM EDT [place] ([facility]) Name Value Range Interpretation Code Description Data Marie rce(s) Supporting Document(s) ID Date Data Source [id number] 07/11/2020 12:00:00 AM EDT [place] ([facility]) Name Value Range Interpretation Code Description Data Marie rce(s) Supporting Document(s) SARS-CoV-2 (COVID-19) RNA [Presence] in Respiratory specimen by MIRTHA with probe detection negative negative Sars-cov-2 [place] ([facility]) ID Date Data Source [id number] 07/11/2020 12:00:00 AM EDT [place] ([facility]) Name Value Range Interpretation Code Description Data Marie rce(s) Supporting Document(s) ID Date Data Source [id number] 07/11/2020 12:00:00 AM EDT [place] ([facility]) Name Value Range Interpretation Code Description Data Marie rce(s) Supporting Document(s) ID Date Data Source [id number] 07/11/2020 12:00:00 AM EDT [place] ([facility]) Name Value Range Interpretation Code Description Data Marie rce(s) Supporting Document(s) SARS coronavirus 2 RNA [Presence] in Res piratory specimen by MIRTHA with probe detection negative negative Sars-cov-2 [place] ([facility]) ID Date Data Source [id number] 07/11/2020 12:00:00 AM EDT [place] ([facility]) Name Value Range Interpretation Code Description Data Marie rce(s) Supporting Document(s) ID Date Data Source [id number] 07/11/2020 12:00:00 AM EDT [place] ([facility]) Name Value Range Interpretation Code Description Data Marie rce(s) Supporting Document(s) ID Date Data Source [id number] 07/11/2020 12:00:00 AM EDT [place] ([facility]) Name Value Range Interpretation Code Description Data Marie rce(s) Supporting Document(s) SARS coronavirus 2 RNA [Presence] in Res piratory specimen by MIRTHA with probe detection negative negative Sars-cov-2 [place] ([facility]) ID Date Data Source [id number] 07/11/2020 12:00:00 AM EDT [place] ([facility]) Name Value Range Interpretation Code Description Data Marie rce(s) Supporting Document(s) ID Date Data Source [id number] 07/11/2020 12:00:00 AM EDT [place] ([facility]) Name Value Range Interpretation Code Description Data Marei rce(s) Supporting Document(s) ID Date Data Source [id number] 07/11/2020 12:00:00 AM EDT [place] ([facility]) Name Value Range Interpretation Code Description Data Marie rce(s) Supporting Document(s) SARS coronavirus 2 RNA [Presence] in Res piratory specimen by MIRTHA with probe detection negative negative Sars-cov-2 [place] ([facility]) ID Date Data Source [id number] 07/11/2020 12:00:00 AM EDT [place] ([facility]) Name Value Range Interpretation Code Description Data Marie rce(s) Supporting Document(s) ID Date Data Source [id number] 07/11/2020 12:00:00 AM EDT [place] ([facility]) Name Value Range Interpretation Code Description Data Marie rce(s) Supporting Document(s) ID Date Data Source [id number] 07/11/2020 12:00:00 AM EDT [place] ([facility]) Name Value Range Interpretation Code Description Data Marie rce(s) Supporting Document(s) SARS coronavirus 2 RNA [Presence] in Res piratory specimen by MIRTHA with probe detection negative negative Sars-cov-2 [place] ([facility]) ID Date Data Source [id number] 07/11/2020 12:00:00 AM EDT [place] ([facility]) Name Value Range Interpretation Code Description Data Marie rce(s) Supporting Document(s) ID Date Data Source [id number] 07/11/2020 12:00:00 AM EDT [place] ([facility]) Name Value Range Interpretation Code Description Data Marie rce(s) Supporting Document(s) ID Date Data Source [id number] 07/11/2020 12:00:00 AM EDT [facility] Name Value Range Interpretation Code Description Data Marie rce(s) Supporting Document(s) SARS-CoV-2 [facility] This lab was ordered by [facility] and reported by [facility]. ID Date Data Source [id number] 05/16/2020 12:00:00 AM EDT [facility] Name Value Range Interpretation Code Description Data Marie rce(s) Supporting Document(s) SARS-CoV-2 [facility] This lab was ordered by [facility] and reported by [facility]. Procedure Social History Code Duration Value Status Description Data Source(s ) Smoking 04/20/2021 12:00:00 AM EDT Current Smoker completed Curre nt Smoker [facility] Smoking 10/23/2020 12:00:00 AM EST Current Smoker completed Curre nt Smoker eCW1 ([facility]) Smoking 10/23/2020 12:00:00 AM EST Current Smoker completed Curre nt Smoker eCW1 ([facility]) Smoking 10/23/2020 12:00:00 AM EST Current Smoker completed Curre nt Smoker eCW1 ([facility]) Smoking 10/23/2020 12:00:00 AM EST Current Smoker completed Curre nt Smoker eCW1 ([facility]) Smoking 07/04/2020 12:00:00 AM EDT Current Smoker completed Curre nt Smoker eCW1 ([facility]) Smoking 07/04/2020 12:00:00 AM EDT Current Smoker completed Curre nt Smoker eCW1 ([facility]) Vital Signs ID Date Data Source [id number] Name Value Range Interpretation Code Description Data Source(s) Systolic blood pressure 150 mm[Hg] 150 mm[Hg] A THENA ([facility]) Body height 63 [in_i] 63 [in_i] [place] ([facility]) Diastolic blood pressure 94 mm[Hg] 94 mm[Hg] [place] ([facility]) Body height 63 [in_i] 63 [in_i] [place] ([facility]) Diastolic blood pressure 94 mm[Hg] 94 mm[Hg] [place] ([facility]) Systolic blood pressure 136 mm[Hg] 136 mm[Hg] A [place]NA ([facility]) Systolic blood pressure 136 mm[Hg] 136 mm[Hg] A [place] ([facility]) Body height 63 [in_i] 63 [in_i] [place] ([facility]) Diastolic blood pressure 94 mm[Hg] 94 mm[Hg] [place] ([facility]) Systolic blood pressure 136 mm[Hg] 136 mm[Hg] A [place] ([facility]) Body height 63 [in_i] 63 [in_i] [place] ([facility]) Diastolic blood pressure 94 mm[Hg] 94 mm[Hg] [place] ([facility]) Systolic blood pressure 136 mm[Hg] 136 mm[Hg] A [place] ([facility]) Body height 63 [in_i] 63 [in_i] [place] ([facility]) Diastolic blood pressure 94 mm[Hg] 94 mm[Hg] [place] ([facility]) Diastolic blood pressure 78 mm[Hg] 78 mm[Hg] [facility] Systolic blood pressure 142 mm[Hg] 142 mm[Hg] e CW1 ([facility]) Body temperature 97.2 [degF] 97.2 [degF] [facility]CW[facility] ( [facility]) Respiratory rate 18 /min 18 /min eCW[facility] Heart rate 78 /min 78 /min eCW1 ([facility]) Body mass index (BMI) [Ratio] 41.73 kg/m2 41.73 kg/m2 eCW1 ([facility]) Body height [in_i] eCW1 ([facility]) Body weight 235.6 [lb_av] 235.6 [lb_av] eCW1 ([facility]) Systolic blood pressure 146 mm[Hg] 146 mm[Hg] A THENA ([facility]) Body height 63 [in_i] 63 [in_i] [place] ([facility]) Diastolic blood pressure 79 mm[Hg] 79 mm[Hg] [place] ([facility]) Systolic blood pressure 146 mm[Hg] 146 mm[Hg] A [place] ([facility]) Body height 63 [in_i] 63 [in_i] [place] ([facility]) Diastolic blood pressure 79 mm[Hg] 79 mm[Hg] [place] ([facility]) Systolic blood pressure 146 mm[Hg] 146 mm[Hg] A [place] ([facility]) Body height 63 [in_i] 63 [in_i] [place] ([facility]) Diastolic blood pressure 79 mm[Hg] 79 mm[Hg] [place] ([facility]) Diastolic blood pressure 79 mm[Hg] 79 mm[Hg] [place] ([facility]) Systolic blood pressure 146 mm[Hg] 146 mm[Hg] A [place] ([facility]) Body height 63 [in_i] 63 [in_i] [place] ([facility]) Diastolic blood pressure 79 mm[Hg] 79 mm[Hg] [place] ([facility]) Systolic blood pressure 146 mm[Hg] 146 mm[Hg] A [place] ([facility]) Body height 63 [in_i] 63 [in_i] [place] ([facility]) Systolic blood pressure 146 mm[Hg] 146 mm[Hg] A [place] ([facility]) Body height 63 [in_i] 63 [in_i] [place] ([facility]) Diastolic blood pressure 79 mm[Hg] 79 mm[Hg] [place] ([facility]) Systolic blood pressure 146 mm[Hg] 146 mm[Hg] A [place] ([facility]) Body height 63 [in_i] 63 [in_i] [place] ([facility]) Diastolic blood pressure 79 mm[Hg] 79 mm[Hg] [place] ([facility]) Systolic blood pressure 146 mm[Hg] 146 mm[Hg] A [place] ([facility]) Body height 63 [in_i] 63 [in_i] [place] ([facility]) Diastolic blood pressure 79 mm[Hg] 79 mm[Hg] [place] ([facility]) Systolic blood pressure 146 mm[Hg] 146 mm[Hg] A [place] ([facility]) Body height 63 [in_i] 63 [in_i] [place] ([facility]) Diastolic blood pressure 79 mm[Hg] 79 mm[Hg] [place] ([facility]) Systolic blood pressure 150 mm[Hg] 150 mm[Hg] A [place] ([facility]) Diastolic blood pressure 80 mm[Hg] 80 mm[Hg] [place] ([facility]) Systolic blood pressure 150 mm[Hg] 150 mm[Hg] A [place] ([facility]) Diastolic blood pressure 80 mm[Hg] 80 mm[Hg] [place] ([facility]) Systolic blood pressure 150 mm[Hg] 150 mm[Hg] A [place] ([facility]) Diastolic blood pressure 80 mm[Hg] 80 mm[Hg] [place] ([facility]) Systolic blood pressure 150 mm[Hg] 150 mm[Hg] A [place] ([facility]) Diastolic blood pressure 80 mm[Hg] 80 mm[Hg] [place] ([facility]) Systolic blood pressure 150 mm[Hg] 150 mm[Hg] A [place] ([facility]) Diastolic blood pressure 80 mm[Hg] 80 mm[Hg] [place] ([facility]) Systolic blood pressure 150 mm[Hg] 150 mm[Hg] A [place]NA ([facility]) Diastolic blood pressure 80 mm[Hg] 80 mm[Hg] [place] ([facility]) Systolic blood pressure 150 mm[Hg] 150 mm[Hg] A [place]NA ([facility]) Diastolic blood pressure 80 mm[Hg] 80 mm[Hg] [place] ([facility]) Systolic blood pressure 150 mm[Hg] 150 mm[Hg] A THENA ([facility]) Diastolic blood pressure 80 mm[Hg] 80 mm[Hg] [place] ([facility]) Systolic blood pressure 150 mm[Hg] 150 mm[Hg] A [place]NA ([facility]) Diastolic blood pressure 80 mm[Hg] 80 mm[Hg] [place] ([facility]) Systolic blood pressure 150 mm[Hg] 150 mm[Hg] A THENA ([facility]) Diastolic blood pressure 80 mm[Hg] 80 mm[Hg] [place] ([facility]) Systolic blood pressure 150 mm[Hg] 150 mm[Hg] A [place]NA ([facility]) Diastolic blood pressure 80 mm[Hg] 80 mm[Hg] [place] ([facility]) Systolic blood pressure 150 mm[Hg] 150 mm[Hg] A THENA ([facility]) Diastolic blood pressure 80 mm[Hg] 80 mm[Hg] [place] ([facility]) Body weight 229 [lb_av] 229 [lb_av] eCW1 ([facility]) Diastolic blood pressure 84 mm[Hg] 84 mm[Hg] [facility] Systolic blood pressure 140 mm[Hg] 140 mm[Hg] e CW1 ([facility]) Body temperature 97.8 [degF] 97.8 [degF] [facility]CW1 ( [facility]) Respiratory rate 18 /min 18 /min eCW1 [facility] Heart rate 80 /min 80 /min eCW1 ([facility]) Body mass index (BMI) [Ratio] 40.56 kg/m2 40.56 kg/m2 eCW1 [facility]) Body height [in_i] eCW1 ([facility]) Body height 63 [in_i] 63 [in_i] [place] ([facility]) Body height 63 [in_i] 63 [in_i] [place] ([facility]) Body height 63 [in_i] 63 [in_i] [place] ([facility]) Body height 63 [in_i] 63 [in_i] [place] ([facility]) Body height 63 [in_i] 63 [in_i] [place] ([facility]) Body height 63 [in_i] 63 [in_i] [place] ([facility]) Body height 63 [in_i] 63 [in_i] [place] ([facility]) Body height 63 [in_i] 63 [in_i] [place] ([facility]) Body height 63 [in_i] 63 [in_i] [place] ([facility]) Body height 63 [in_i] 63 [in_i] [place] ([facility]) Body height 63 [in_i] 63 [in_i] [place] ([facility]) Body height 63 [in_i] 63 [in_i] [place] ([facility]) Body height 63 [in_i] 63 [in_i] [place] ([facility]) Body height 63 [in_i] 63 [in_i] [place] ([facility]) Body height 63 [in_i] 63 [in_i] [place] ([facility]) Body height 63 [in_i] 63 [in_i] [place] ([facility]) Body height 63 [in_i] 63 [in_i] [place] ([facility]) Body height 63 [in_i] 63 [in_i] [place] ([facility]) Body height 63 [in_i] 63 [in_i] [place] ([facility]) Body height 63 [in_i] 63 [in_i] [place] ([facility]) Body height 63 [in_i] 63 [in_i] [place] ([facility]) Body height 63 [in_i] 63 [in_i] [place] ([facility]) Body height 63 [in_i] 63 [in_i] [place] ([facility]) Body height 63 [in_i] 63 [in_i] [place] ([facility]) Body height 63 [in_i] 63 [in_i] [place] ([facility]) Body height 63 [in_i] 63 [in_i] [place] ([facility]) Body height 63 [in_i] 63 [in_i] [place] ([facility]) Body height 63 [in_i] 63 [in_i] [place] ([facility]) Body height 63 [in_i] 63 [in_i] [place] ([facility]) Body height 63 [in_i] 63 [in_i] [place] ([facility]) Body height 63 [in_i] 63 [in_i] [place] ([facility]) Body height 63 [in_i] 63 [in_i] [place] ([facility]) Body height 63 [in_i] 63 [in_i] [place] ([facility]) Body height 63 [in_i] 63 [in_i] [place] ([facility]) Body height 63 [in_i] 63 [in_i] [place] ([facility]) Body height 63 [in_i] 63 [in_i] [place] ([facility]) Body height 63 [in_i] 63 [in_i] [place] ([facility]) Body height 63 [in_i] 63 [in_i] [place] ([facility]) Systolic blood pressure 157 mm[Hg] 157 mm[Hg] A THENA ([facility]) Body height 63 [in_i] 63 [in_i] [place] ([facility]) Diastolic blood pressure 84 mm[Hg] 84 mm[Hg] [place] ([facility]) Systolic blood pressure 157 mm[Hg] 157 mm[Hg] A THENA ([facility]) Body height 63 [in_i] 63 [in_i] [place] ([facility]) Diastolic blood pressure 84 mm[Hg] 84 mm[Hg] [place] ([facility]) Systolic blood pressure 157 mm[Hg] 157 mm[Hg] A THENA ([facility]) Body height 63 [in_i] 63 [in_i] [place] ([facility]) Diastolic blood pressure 84 mm[Hg] 84 mm[Hg] [place] ([facility]) Systolic blood pressure 157 mm[Hg] 157 mm[Hg] A THENA ([facility]) Body height 63 [in_i] 63 [in_i] [place] ([facility]) Diastolic blood pressure 84 mm[Hg] 84 mm[Hg] [place] ([facility]) Systolic blood pressure 157 mm[Hg] 157 mm[Hg] A THENA ([facility]) Body height 63 [in_i] 63 [in_i] [place] ([facility]) Diastolic blood pressure 84 mm[Hg] 84 mm[Hg] [place] ([facility]) Systolic blood pressure 157 mm[Hg] 157 mm[Hg] A THENA ([facility]) Body height 63 [in_i] 63 [in_i] [place] ([facility]) Diastolic blood pressure 84 mm[Hg] 84 mm[Hg] [place] ([facility]) Systolic blood pressure 157 mm[Hg] 157 mm[Hg] A THENA ([facility]) Body height 63 [in_i] 63 [in_i] [place] ([facility]) Diastolic blood pressure 84 mm[Hg] 84 mm[Hg] [place] ([facility]) Systolic blood pressure 157 mm[Hg] 157 mm[Hg] A THENA ([facility]) Body height 63 [in_i] 63 [in_i] [facility] [facility]) Diastolic blood pressure 84 mm[Hg] 84 mm[Hg] AUGUSTIN ([facility]) Systolic blood pressure 157 mm[Hg] 157 mm[Hg] A THENA ([facility]) Body height 63 [in_i] 63 [in_i] AUGUSTIN ([facility]) Diastolic blood pressure 84 mm[Hg] 84 mm[Hg] AUGUSTIN ([facility]) Systolic blood pressure 157 mm[Hg] 157 mm[Hg] A THENA ([facility]) Body height 63 [in_i] 63 [in_i] AUGUSTIN ([facility]) Diastolic blood pressure 84 mm[Hg] 84 mm[Hg] AUGUSTIN ([facility]) Systolic blood pressure 157 mm[Hg] 157 mm[Hg] A THENA ([facility]) Body height 63 [in_i] 63 [in_i] AUGUSTIN ([facility]) Diastolic blood pressure 84 mm[Hg] 84 mm[Hg] AUGUSTIN ([facility]) Systolic blood pressure 157 mm[Hg] 157 mm[Hg] A THENA ([facility]) Body height 63 [in_i] 63 [in_i] AUGUSTIN ([facility]) Diastolic blood pressure 84 mm[Hg] 84 mm[Hg] AUGUSTIN ([facility]) Systolic blood pressure 157 mm[Hg] 157 mm[Hg] A THENA ([facility]) Body height 63 [in_i] 63 [in_i] AUGUSTIN ([facility]) Diastolic blood pressure 84 mm[Hg] 84 mm[Hg] AUGUSTIN ([facility]) Systolic blood pressure 157 mm[Hg] 157 mm[Hg] A THENA ([facility]) Body height 63 [in_i] 63 [in_i] AUGUSTIN ([facility]) Diastolic blood pressure 84 mm[Hg] 84 mm[Hg] AUGUSTIN ([facility]) Systolic blood pressure 157 mm[Hg] 157 mm[Hg] A THENA ([facility]) Body height 63 [in_i] 63 [in_i] AUGUSTIN ([facility]) Diastolic blood pressure 84 mm[Hg] 84 mm[Hg] AUGUSTIN ([facility]) Systolic blood pressure 157 mm[Hg] 157 mm[Hg] A THENA ([facility]) Body height 63 [in_i] 63 [in_i] AUGUSTIN ([facility]) Diastolic blood pressure 84 mm[Hg] 84 mm[Hg] AUGUSTIN ([facility]) Systolic blood pressure 157 mm[Hg] 157 mm[Hg] A THENA ([facility]) Body height 63 [in_i] 63 [in_i] AUGUSTIN ([facility]) Diastolic blood pressure 84 mm[Hg] 84 mm[Hg] AUGUSTIN ([facility]) Systolic blood pressure 157 mm[Hg] 157 mm[Hg] A THENA ([facility]) Body height 63 [in_i] 63 [in_i] AUGUSTIN ([facility]) Diastolic blood pressure 84 mm[Hg] 84 mm[Hg] AUGUSTIN ([facility]) Systolic blood pressure 157 mm[Hg] 157 mm[Hg] A THENA ([facility]) Body height 63 [in_i] 63 [in_i] AUGUSTIN ([facility]) Diastolic blood pressure 84 mm[Hg] 84 mm[Hg] AUGUSTIN ([facility]) Systolic blood pressure 157 mm[Hg] 157 mm[Hg] A THENA ([facility]) Body height 63 [in_i] 63 [in_i] AUGUSTIN ([facility]) Diastolic blood pressure 84 mm[Hg] 84 mm[Hg] AUGUSTIN ([facility]) Systolic blood pressure 157 mm[Hg] 157 mm[Hg] A THENA ([facility]) Body height 63 [in_i] 63 [in_i] AUGUSTIN ([facility]) Diastolic blood pressure 84 mm[Hg] 84 mm[Hg] AUGUSTIN ([facility]) Systolic blood pressure 157 mm[Hg] 157 mm[Hg] A THENA ([facility]) Body height 63 [in_i] 63 [in_i] AUGUSTIN ([facility]) Diastolic blood pressure 84 mm[Hg] 84 mm[Hg] AUGUSTIN ([facility]) Systolic blood pressure 157 mm[Hg] 157 mm[Hg] A THENA ([facility]) Body height 63 [in_i] 63 [in_i] AUGUSTIN ([facility]) Diastolic blood pressure 84 mm[Hg] 84 mm[Hg] AUGUSTIN ([facility]) Systolic blood pressure 157 mm[Hg] 157 mm[Hg] A THENA ([facility]) Body height 63 [in_i] 63 [in_i] AUGUSTIN ([facility]) Diastolic blood pressure 84 mm[Hg] 84 mm[Hg] AUGUSTIN ([facility]) Systolic blood pressure 158 mm[Hg] 158 mm[Hg] A THENA ([facility]) Body height 63 [in_i] 63 [in_i] AUGUSTIN ([facility]) Diastolic blood pressure 104 mm[Hg] 104 mm[Hg] AUGUSTIN ([facility]) Systolic blood pressure 158 mm[Hg] 158 mm[Hg] A THENA ([facility]) Body height 63 [in_i] 63 [in_i] AUGUSTIN ([facility]) Diastolic blood pressure 104 mm[Hg] 104 mm[Hg] AUGUSTIN ([facility]) Systolic blood pressure 158 mm[Hg] 158 mm[Hg] A THENA ([facility]) Body height 63 [in_i] 63 [in_i] AUGUSTIN ([facility]) Diastolic blood pressure 104 mm[Hg] 104 mm[Hg] AUGUSTIN ([facility]) Systolic blood pressure 158 mm[Hg] 158 mm[Hg] A THENA ([facility]) Body height 63 [in_i] 63 [in_i] AUGUSTIN ([facility]) Diastolic blood pressure 104 mm[Hg] 104 mm[Hg] AUGUSTIN ([facility]) Body height 63 [in_i] 63 [in_i] AUGUSTIN ([facility]) Diastolic blood pressure 104 mm[Hg] 104 mm[Hg] AUGUSTIN ([facility]) Systolic blood pressure 158 mm[Hg] 158 mm[Hg] A THENA ([facility]) Body height 63 [in_i] 63 [in_i] AUGUSTIN ([facility]) Diastolic blood pressure 104 mm[Hg] 104 mm[Hg] AUGUSTIN ([facility]) Systolic blood pressure 158 mm[Hg] 158 mm[Hg] A THENA ([facility]) Systolic blood pressure 158 mm[Hg] 158 mm[Hg] A THENA ([facility]) Body height 63 [in_i] 63 [in_i] AUGUSTIN ([facility]) Diastolic blood pressure 104 mm[Hg] 104 mm[Hg] AUGUSTIN ([facility]) Systolic blood pressure 158 mm[Hg] 158 mm[Hg] A THENA ([facility]) Body height 63 [in_i] 63 [in_i] AUGUSTIN ([facility]) Diastolic blood pressure 104 mm[Hg] 104 mm[Hg] AUGUSTIN ([facility]) Systolic blood pressure 158 mm[Hg] 158 mm[Hg] A THENA ([facility]) Body height 63 [in_i] 63 [in_i] AUGUSTIN ([facility]) Diastolic blood pressure 104 mm[Hg] 104 mm[Hg] AUGUSTIN ([facility]) Systolic blood pressure 158 mm[Hg] 158 mm[Hg] A THENA ([facility]) Body height 63 [in_i] 63 [in_i] AUGUSTIN ([facility]) Diastolic blood pressure 104 mm[Hg] 104 mm[Hg] AUGUSTIN ([facility]) Systolic blood pressure 158 mm[Hg] 158 mm[Hg] A THENA ([facility]) Body height 63 [in_i] 63 [in_i] AUGUSTIN ([facility]) Diastolic blood pressure 104 mm[Hg] 104 mm[Hg] AUGUSTIN ([facility]) Systolic blood pressure 158 mm[Hg] 158 mm[Hg] A THENA ([facility]) Body height 63 [in_i] 63 [in_i] AUGUSTIN ([facility]) Diastolic blood pressure 104 mm[Hg] 104 mm[Hg] AUGUSTIN ([facility]) Systolic blood pressure 158 mm[Hg] 158 mm[Hg] A THENA ([facility]) Body height 63 [in_i] 63 [in_i] AUGUSTIN ([facility]) Diastolic blood pressure 104 mm[Hg] 104 mm[Hg] AUGUSTIN ([facility]) Systolic blood pressure 158 mm[Hg] 158 mm[Hg] A THENA ([facility]) Body height 63 [in_i] 63 [in_i] AUGUSTIN ([facility]) Diastolic blood pressure 104 mm[Hg] 104 mm[Hg] AUGUSTIN ([facility]) Systolic blood pressure 158 mm[Hg] 158 mm[Hg] A THENA ([facility]) Body height 63 [in_i] 63 [in_i] AUGUSTIN ([facility]) Diastolic blood pressure 104 mm[Hg] 104 mm[Hg] AUGUSTIN ([facility]) Systolic blood pressure 158 mm[Hg] 158 mm[Hg] A THENA ([facility]) Body height 63 [in_i] 63 [in_i] AUGUSTIN ([facility]) Diastolic blood pressure 104 mm[Hg] 104 mm[Hg] AUGUSTIN ([facility]) Systolic blood pressure 158 mm[Hg] 158 mm[Hg] A THENA ([facility]) Body height 63 [in_i] 63 [in_i] AUGUSTIN ([facility]) Diastolic blood pressure 104 mm[Hg] 104 mm[Hg] AUGUSTIN ([facility]) Systolic blood pressure 158 mm[Hg] 158 mm[Hg] A THENA ([facility]) Body height 63 [in_i] 63 [in_i] AUGUSTIN ([facility]) Diastolic blood pressure 104 mm[Hg] 104 mm[Hg] AUGUSTIN ([facility]) Systolic blood pressure 158 mm[Hg] 158 mm[Hg] A THENA ([facility]) Body height 63 [in_i] 63 [in_i] AUGUSTIN ([facility]) Diastolic blood pressure 104 mm[Hg] 104 mm[Hg] AUGUSTIN ([facility]) Systolic blood pressure 158 mm[Hg] 158 mm[Hg] A THENA ([facility]) Body height 63 [in_i] 63 [in_i] AUGUSTIN ([facility]) Diastolic blood pressure 104 mm[Hg] 104 mm[Hg] AUGUSTIN ([facility]) Systolic blood pressure 158 mm[Hg] 158 mm[Hg] A THENA ([facility]) Body height 63 [in_i] 63 [in_i] AUGUSTIN ([facility]) Diastolic blood pressure 104 mm[Hg] 104 mm[Hg] AUGUSTIN ([facility]) Systolic blood pressure 158 mm[Hg] 158 mm[Hg] A THENA ([facility]) Body height 63 [in_i] 63 [in_i] AUGUSTIN ([facility]) Diastolic blood pressure 104 mm[Hg] 104 mm[Hg] AUGUSTIN ([facility]) Systolic blood pressure 158 mm[Hg] 158 mm[Hg] A THENA ([facility]) Body height 63 [in_i] 63 [in_i] AUGUSTIN ([facility]) Diastolic blood pressure 104 mm[Hg] 104 mm[Hg] AUGUSTIN ([facility]) Systolic blood pressure 158 mm[Hg] 158 mm[Hg] A THENA ([facility]) Body height 63 [in_i] 63 [in_i] AUGUSTIN ([facility]) Diastolic blood pressure 104 mm[Hg] 104 mm[Hg] AUGUSTIN ([facility]) Systolic blood pressure 158 mm[Hg] 158 mm[Hg] A THENA ([facility]) Body height 63 [in_i] 63 [in_i] AUGUSTIN ([facility]) Diastolic blood pressure 104 mm[Hg] 104 mm[Hg] AUGUSTIN ([facility]) Systolic blood pressure 158 mm[Hg] 158 mm[Hg] A THENA ([facility]) Body height 63 [in_i] 63 [in_i] AUGUSTIN ([facility]) Diastolic blood pressure 104 mm[Hg] 104 mm[Hg] AUGUSTIN ([facility]) Systolic blood pressure 158 mm[Hg] 158 mm[Hg] A THENA ([facility]) Body height 63 [in_i] 63 [in_i] AUGUSTIN ([facility]) Diastolic blood pressure 104 mm[Hg] 104 mm[Hg] AUGUSTIN ([facility]) Systolic blood pressure 158 mm[Hg] 158 mm[Hg] A THENA ([facility]) Body height 63 [in_i] 63 [in_i] AUGUSTIN ([facility]) Diastolic blood pressure 96 mm[Hg] 96 mm[Hg] AUGUSTIN ([facility]) Systolic blood pressure 158 mm[Hg] 158 mm[Hg] A THENA ([facility]) Systolic blood pressure 158 mm[Hg] 158 mm[Hg] A THENA ([facility]) Body height 63 [in_i] 63 [in_i] AUGUSTIN ([facility]) Diastolic blood pressure 96 mm[Hg] 96 mm[Hg] AUGUSTIN ([facility]) Body height 63 [in_i] 63 [in_i] AUGUSTIN ([facility]) Diastolic blood pressure 96 mm[Hg] 96 mm[Hg] AUGUSTIN ([facility]) Systolic blood pressure 158 mm[Hg] 158 mm[Hg] A THENA ([facility]) Systolic blood pressure 158 mm[Hg] 158 mm[Hg] A THENA ([facility]) Body height 63 [in_i] 63 [in_i] AUGUSTIN ([facility]) Diastolic blood pressure 96 mm[Hg] 96 mm[Hg] AUGUSTIN ([facility]) Systolic blood pressure 158 mm[Hg] 158 mm[Hg] A THENA ([facility]) Systolic blood pressure 158 mm[Hg] 158 mm[Hg] A THENA ([facility]) Body height 63 [in_i] 63 [in_i] AUGUSTIN ([facility]) Diastolic blood pressure 96 mm[Hg] 96 mm[Hg] AUGUSTIN ([facility]) Body height 63 [in_i] 63 [in_i] AUGUSTIN ([facility]) Diastolic blood pressure 96 mm[Hg] 96 mm[Hg] AUGUSTIN ([facility]) Systolic blood pressure 158 mm[Hg] 158 mm[Hg] A THENA ([facility]) Systolic blood pressure 158 mm[Hg] 158 mm[Hg] A THENA ([facility]) Body height 63 [in_i] 63 [in_i] AUGUSTIN ([facility]) Diastolic blood pressure 96 mm[Hg] 96 mm[Hg] AUGUSTIN ([facility]) Body height 63 [in_i] 63 [in_i] AUGUSTIN ([facility]) Diastolic blood pressure 96 mm[Hg] 96 mm[Hg] AUGUSTIN ([facility]) Body height 63 [in_i] 63 [in_i] AUGUSTIN ([facility]) Diastolic blood pressure 96 mm[Hg] 96 mm[Hg] AUGUSTIN ([facility]) Systolic blood pressure 158 mm[Hg] 158 mm[Hg] A THENA ([facility]) Body height 63 [in_i] 63 [in_i] AUGUSTIN ([facility]) Diastolic blood pressure 96 mm[Hg] 96 mm[Hg] AUGUSTIN ([facility]) Systolic blood pressure 158 mm[Hg] 158 mm[Hg] A THENA ([facility]) Body height 63 [in_i] 63 [in_i] AUGUSTIN ([facility]) Diastolic blood pressure 96 mm[Hg] 96 mm[Hg] AUGUSTIN ([facility]) Systolic blood pressure 158 mm[Hg] 158 mm[Hg] A THENA ([facility]) Body height 63 [in_i] 63 [in_i] AUGUSTIN ([facility]) Diastolic blood pressure 96 mm[Hg] 96 mm[Hg] AUGUSTIN ([facility]) Systolic blood pressure 158 mm[Hg] 158 mm[Hg] A THENA ([facility]) Body height 63 [in_i] 63 [in_i] AUGUSTIN ([facility]) Diastolic blood pressure 96 mm[Hg] 96 mm[Hg] AUGUSTIN ([facility]) Systolic blood pressure 158 mm[Hg] 158 mm[Hg] A THENA ([facility]) Systolic blood pressure 158 mm[Hg] 158 mm[Hg] A THENA ([facility]) Body height 63 [in_i] 63 [in_i] AUGUSTIN ([facility]) Diastolic blood pressure 96 mm[Hg] 96 mm[Hg] AUGUSTIN ([facility]) Body height 63 [in_i] 63 [in_i] AUGUSTIN ([facility]) Diastolic blood pressure 96 mm[Hg] 96 mm[Hg] AUGUSTIN ([facility]) Systolic blood pressure 158 mm[Hg] 158 mm[Hg] A THENA ([facility]) Body height 63 [in_i] 63 [in_i] AUGUSTIN ([facility]) Diastolic blood pressure 96 mm[Hg] 96 mm[Hg] AUGUSTIN ([facility]) Systolic blood pressure 158 mm[Hg] 158 mm[Hg] A THENA ([facility]) Body height 63 [in_i] 63 [in_i] AUGUSTIN ([facility]) Diastolic blood pressure 96 mm[Hg] 96 mm[Hg] AUGUSTIN ([facility]) Systolic blood pressure 158 mm[Hg] 158 mm[Hg] A THENA ([facility]) Body height 63 [in_i] 63 [in_i] AUGUSTIN ([facility]) Diastolic blood pressure 96 mm[Hg] 96 mm[Hg] AUGUSTIN ([facility]) Systolic blood pressure 158 mm[Hg] 158 mm[Hg] A THENA ([facility]) Body height 63 [in_i] 63 [in_i] AUGUSTIN ([facility]) Diastolic blood pressure 96 mm[Hg] 96 mm[Hg] AUGUSTIN ([facility]) Systolic blood pressure 158 mm[Hg] 158 mm[Hg] A THENA ([facility]) Body height 63 [in_i] 63 [in_i] AUGUSTIN ([facility]) Diastolic blood pressure 96 mm[Hg] 96 mm[Hg] AUGUSTIN ([facility]) Systolic blood pressure 158 mm[Hg] 158 mm[Hg] A THENA ([facility]) Body height 63 [in_i] 63 [in_i] AUGUSTIN ([facility]) Diastolic blood pressure 96 mm[Hg] 96 mm[Hg] AUGUSTIN ([facility]) Systolic blood pressure 158 mm[Hg] 158 mm[Hg] A THENA ([facility]) Body height 63 [in_i] 63 [in_i] AUGUSTIN ([facility]) Diastolic blood pressure 96 mm[Hg] 96 mm[Hg] AUGUSTIN ([facility]) Systolic blood pressure 158 mm[Hg] 158 mm[Hg] A THENA ([facility]) Systolic blood pressure 158 mm[Hg] 158 mm[Hg] A THENA ([facility]) Body height 63 [in_i] 63 [in_i] AUGUSTIN ([facility]) Systolic blood pressure 158 mm[Hg] 158 mm[Hg] A THENA ([facility]) Body height 63 [in_i] 63 [in_i] AUGUSTIN ([facility]) Diastolic blood pressure 96 mm[Hg] 96 mm[Hg] AUGUSTIN ([facility]) Diastolic blood pressure 96 mm[Hg] 96 mm[Hg] AUGUSTIN ([facility]) Body height 63 [in_i] 63 [in_i] AUGUSTIN ([facility]) Diastolic blood pressure 96 mm[Hg] 96 mm[Hg] AUGUSTIN ([facility]) Systolic blood pressure 158 mm[Hg] 158 mm[Hg] A THENA ([facility]) Systolic blood pressure 158 mm[Hg] 158 mm[Hg] A THENA ([facility]) Body height 63 [in_i] 63 [in_i] AUGUSTIN ([facility]) Diastolic blood pressure 96 mm[Hg] 96 mm[Hg] AUGUSTIN ([facility]) Systolic blood pressure 158 mm[Hg] 158 mm[Hg] A THENA ([facility]) Body height 63 [in_i] 63 [in_i] AUGUSTIN ([facility]) Diastolic blood pressure 96 mm[Hg] 96 mm[Hg] AUGUSTIN ([facility]) Body height 63 [in_i] 63 [in_i] AUGUSTIN ([facility]) Diastolic blood pressure 96 mm[Hg] 96 mm[Hg] AUGUSTIN ([facility]) Systolic blood pressure 158 mm[Hg] 158 mm[Hg] A THENA ([facility]) Body height 63 [in_i] 63 [in_i] AUGUSTIN ([facility]) Diastolic blood pressure 96 mm[Hg] 96 mm[Hg] AUGUSTIN ([facility]) Systolic blood pressure 158 mm[Hg] 158 mm[Hg] A THENA ([facility]) Body height 63 [in_i] 63 [in_i] AUGUSTIN ([facility]) Diastolic blood pressure 96 mm[Hg] 96 mm[Hg] AUGUSTIN ([facility]) Systolic blood pressure 158 mm[Hg] 158 mm[Hg] A THENA ([facility]) Body height 63 [in_i] 63 [in_i] AUGUSTIN ([facility]) Diastolic blood pressure 96 mm[Hg] 96 mm[Hg] AUGUSTIN ([facility]) Patient Treatment Plan of Care Planned Activity Planned Date Details Description Data Source (s) Amoxicillin 500 MG / Clavulanate 125 MG Oral Tablet 04/20/20 12:00:00 AM EDT eCW1 ([facility]) Fluconazole 150 MG Oral Tablet 04/20/2021 12:00:00 AM EDT [facility] zonisamide 50 MG Oral Capsule AUGUSTIN ([facility]) venlafaxine hydrochloride er 75 mg cp24 [place]IN ([facility]) 24 HR venlafaxine 75 MG Extended Release Oral Capsule [place]UGUSTIN ([facility]) tramadol hcl 50 mg tabs ATH NORMA ([facility]) Flint Oil 1,000 mg capsule Take 1 capsule every day by oral rout e. [place]IN ([facility]) paroxetine hydrochloride 10 mg tabs [place]IN ([facility]) paroxetine 10 mg tablet ATHE NA ([facility]) Naproxen 250 MG Oral Tablet [place]IN ([facility]) naproxen 500 mg tabs A[place]IN ([facility]) methylprednisolone dose pack 4 mg tbpk AUGUSTIN ([facility]) methocarbamol 750 mg tabs A THENA ([facility]) Lorazepam 1 MG Oral Tablet A THENA ([facility]) Lidocaine Hydrochloride 30 MG/ML Topical Cream AUGUSTIN ([facility]) lidoc/banop/mi ac SWISH AND SPIT WITH 10 ML FOUR TIMES A DAY NEEDED FOR [facility]UCOSITIS [facility] latanoprost 0.005 % soln AT PATRICIO ([facility]) ketotifen fumarate 0.025 % soln [place]UGUSTIN ([facility]) Ketotifen 0.25 MG/ML Ophthalmic Solution AUGUSTIN ([facility]) Ibuprofen 800 MG Oral Tablet [place]UGUSTIN ([facility]) Ibuprofen 600 MG Oral Tablet [place]IN ([facility]) ibuprofen 800 mg tabs ATHEN A ([facility]) hydroco/apap tab 5-325mg ATH NORMA ([facility]) gabapentin 800 mg tabs ATHE NA ([facility]) fluticasone propionate 50 mcg/actuation nasal spray,suspension [place]IN ([facility]) fluticasone propionate 50 mcg/act susp [place]IN ([facility]) Fluconazole 150 MG Oral Tablet [place]IN ([facility]) fluconazole 150 mg tabs ATH NORMA ([facility]) cetirizine hydrochloride 10 MG Oral Tablet [place]IN ([facility]) Carisoprodol 350 MG Oral Tablet [place]IN ([facility]) brimonidine tartrate 0.2 % soln [place]IN ([facility]) Brimonidine tartrate 2 MG/ML Ophthalmic Solution [place]IN ([facility]) baclofen 10 mg tabs [place]IN ([facility]) artificial tears 1.4 % soln [place]IN ([facility]) Amoxicillin 500 MG / Clavulanate 125 MG Oral Tablet [place]UG[place]IN ([facility]) Amoxicillin 500 MG Oral Capsule [place]IN ([facility]) amoxicillin 500 mg caps ATH NORMA ([facility]) albuterol sulfate hfa 108 mcg/act aers [place]IN ([facility]) zonisamide 50 MG Oral Capsule [place]IN ([facility]) venlafaxine hydrochloride er 75 mg cp24 [place] ([facility]) 24 HR venlafaxine 75 MG Extended Release Oral Capsule [place] ([facility]) tramadol hcl 50 mg tabs ATH NORMA ([facility]) Flint Oil 1,000 mg capsule Take 1 capsule every day by oral rout e. [place]IN ([facility]) paroxetine hydrochloride 10 mg tabs [place]IN ([facility]) paroxetine 10 mg tablet ATHE NA ([facility]) Naproxen 500 MG Oral Tablet [place] ([facility]) Naproxen 250 MG Oral Tablet [place] ([facility]) naproxen 500 mg tabs A[place]IN ([facility]) methylprednisolone dose pack 4 mg tbpk [place]IN ([facility]) methocarbamol 750 mg tabs A THENA ([facility]) Lorazepam 1 MG Oral Tablet A THENA ([facility]) Lidocaine Hydrochloride 30 MG/ML Topical Cream [place]IN ([facility]) lidoc/banop/mi ac SWISH AND SPIT WITH 10 ML FOUR TIMES A DAY NEEDED FOR MUCOSITIS [facility] [facility] latanoprost 0.005 % soln AT PATRICIO ([facility]) ketotifen fumarate 0.025 % soln [place]IN ([facility]) Ketotifen 0.25 MG/ML Ophthalmic Solution [place]IN ([facility]) Ibuprofen 600 MG Oral Tablet [place]IN ([facility]) ibuprofen 800 mg tabs ATHEN A ([facility]) hydroco/apap tab 5-325mg ATH NORMA ([facility]) gabapentin 800 mg tabs ATHE NA ([facility]) fluticasone propionate 50 mcg/actuation nasal spray,suspension [place]UG[place]IN ([facility]) fluticasone propionate 50 mcg/act susp [place]IN ([facility]) fluconazole 150 mg tabs ATH NORMA ([facility] cetirizine hydrochloride 10 MG Oral Tablet [place] ([facility]) Carisoprodol 350 MG Oral Tablet [place] ([facility]) brimonidine tartrate 0.2 % soln [place] ([facility]) Brimonidine tartrate 2 MG/ML Ophthalmic Solution [place] ([facility]) baclofen 10 mg tabs [place]UG[place]IN ([facility]) artificial tears 1.4 % soln [place]IN ([facility] Amoxicillin 500 MG Oral Capsule [place]IN ([facility]) amoxicillin 500 mg caps ATH NORMA ([facility]) artificial tears 1.4 % soln [place]IN ([facility] Amoxicillin 500 MG Oral Capsule [place] ([facility]) amoxicillin 500 mg caps ATH NORMA ([facility]) albuterol sulfate hfa 108 mcg/act aers [place]UGUSTIN ([facility]) zonisamide 50 MG Oral Capsule [place] ([facility]) zonisamide 50 MG Oral Capsule [place]IN ([facility]) venlafaxine hydrochloride er 75 mg cp24 [place]IN ([facility]) 24 HR venlafaxine 75 MG Extended Release Oral Capsule [place]IN ([facility]) tramadol hcl 50 mg tabs ATH NORMA ([facility]) Flint Oil 1,000 mg capsule Take 1 capsule every day by oral rout e. [place]IN ([facility]) paroxetine hydrochloride 10 mg tabs [place]IN ([facility]) paroxetine 10 mg tablet ATHE NA ([facility]) Omeprazole 40 MG Delayed Release Oral Capsule [place]UG[place]IN ([facility]) Naproxen 500 MG Oral Tablet [place] ([facility]) Naproxen 250 MG Oral Tablet [place] ([facility]) naproxen 500 mg tabs A[place]IN ([facility]) methylprednisolone dose pack 4 mg tbpk AUG[place]IN ([facility]) Methocarbamol 750 MG Oral Tablet [place]UG[place]IN ([facility]) methocarbamol 750 mg tabs A THENA ([facility]) Lorazepam 1 MG Oral Tablet A THENA ([facility]) Lidocaine Hydrochloride 30 MG/ML Topical Cream [place]UG[place]IN ([facility]) lidoc/banop/mi ac SWISH AND SPIT WITH 10 ML FOUR TIMES A DAY NEEDED FOR MUCOSITIS [facility] [facility] latanoprost 0.005 % soln AT PATRICIO ([facility]) ketotifen fumarate 0.025 % soln [place]IN ([facility]) Ketotifen 0.25 MG/ML Ophthalmic Solution AUGUSTIN ([facility]) Ibuprofen 600 MG Oral Tablet AUGUSTIN ([facility]) ibuprofen 800 mg tabs ATHEN A ([facility]) hydroco/apap tab 5-325mg ATH NORMA ([facility]) gabapentin 800 mg tabs ATHE NA ([facility]) fluticasone propionate 50 mcg/actuation nasal spray,suspension [place]IN ([facility]) fluticasone propionate 50 mcg/act susp [place]USTIN ([facility]) Fluconazole 150 MG Oral Tablet [place]UG[place]IN ([facility]) fluconazole 150 mg tabs ATH NORMA ([facility]) cetirizine hydrochloride 10 MG Oral Tablet [place] ([facility]) Carisoprodol 350 MG Oral Tablet [place] ([facility]) venlafaxine hydrochloride er 75 mg cp24 [place]UG[place]IN ([facility]) 24 HR venlafaxine 75 MG Extended Release Oral Capsule [place]UG[place]IN ([facility]) tramadol hcl 50 mg tabs ATH NORMA ([facility]) Flint Oil 1,000 mg capsule Take 1 capsule every day by oral rout e. [place]IN ([facility]) paroxetine hydrochloride 10 mg tabs A[place]IN ([facility]) paroxetine 10 mg tablet ATHE NA ([facility]) Naproxen 500 MG Oral Tablet [place]UG[place] ([facility]) Naproxen 250 MG Oral Tablet [place] ([facility]) naproxen 500 mg tabs A[place]IN ([facility]) methylprednisolone dose pack 4 mg tbpk AUG[place]IN ([facility]) methocarbamol 750 mg tabs A THENA ([facility]) Lorazepam 1 MG Oral Tablet A THENA ([facility]) Lidocaine Hydrochloride 30 MG/ML Topical Cream AUG[place]IN ([facility]) lidoc/banop/mi ac SWISH AND SPIT WITH 10 ML FOUR TIMES A DAY NEEDED FOR MUCOSITIS [facility] [facility] latanoprost 0.005 % soln AT PATRICIO ([facility]) ketotifen fumarate 0.025 % soln [place]UG[place]IN ([facility]) Ketotifen 0.25 MG/ML Ophthalmic Solution AUG[place]IN ([facility]) Ibuprofen 600 MG Oral Tablet A[place]IN ([facility]) ibuprofen 800 mg tabs ATHEN A ([facility]) hydroco/apap tab 5-325mg ATH NORMA ([facility]) gabapentin 800 mg tabs ATHE NA ([facility]) fluticasone propionate 50 mcg/actuation nasal spray,suspension AUGUSTIN ([facility]) fluticasone propionate 50 mcg/act susp [place]UGUSTIN ([facility]) fluconazole 150 mg tabs ATH NORMA ([facility]) cetirizine hydrochloride 10 MG Oral Tablet AUG[place]IN ([facility]) Carisoprodol 350 MG Oral Tablet [place]UG[place]IN ([facility]) brimonidine tartrate 0.2 % soln [place]UG[place]IN ([facility]) Brimonidine tartrate 2 MG/ML Ophthalmic Solution [place]IN ([facility]) baclofen 10 mg tabs AUG[place]IN ([facility]) artificial tears 1.4 % soln [place]UG[place]IN ([facility]) Amoxicillin 500 MG Oral Capsule [place]UG[place]IN ([facility]) amoxicillin 500 mg caps ATH NORMA ([facility]) albuterol sulfate hfa 108 mcg/act aers AUGUSTIN ([facility]) Methocarbamol 750 MG Oral Tablet AUG[place]IN ([facility]) methocarbamol 750 mg tabs A THENA ([facility]) Lorazepam 1 MG Oral Tablet A THENA ([facility]) Lidocaine Hydrochloride 30 MG/ML Topical Cream AUGUSTIN ([facility]) lidoc/banop/mi ac SWISH AND SPIT WITH 10 ML FOUR TIMES A DAY NEEDED FOR MUCOSITIS [facility] ([facility] latanoprost 0.005 % soln AT PATRICIO ([facility]) ketotifen fumarate 0.025 % soln [place]UG[place]IN ([facility]) Ketotifen 0.25 MG/ML Ophthalmic Solution AUGUSTIN ([facility]) Ibuprofen 600 MG Oral Tablet AUG[place]IN ([facility]) ibuprofen 800 mg tabs ATHEN A ([facility]) hydroco/apap tab 5-325mg ATH NORMA ([facility]) gabapentin 800 mg tabs ATHE NA ([facility]) fluticasone propionate 50 mcg/actuation nasal spray,suspension AUG[place]IN ([facility]) fluticasone propionate 50 mcg/act susp AUGUSTIN ([facility]) Fluconazole 150 MG Oral Tablet AUG[place]IN ([facility]) fluconazole 150 mg tabs ATH NORMA ([facility]) cetirizine hydrochloride 10 MG Oral Tablet [place] ([facility]) Carisoprodol 350 MG Oral Tablet [place]IN ([facility]) brimonidine tartrate 0.2 % soln [place]IN ([facility]) Brimonidine tartrate 2 MG/ML Ophthalmic Solution [place]UGUSTIN ([facility]) baclofen 10 mg tabs AUG[place]IN ([facility]) artificial tears 1.4 % soln [place]UG[place]IN ([facility]) Amoxicillin 500 MG Oral Capsule [place] ([facility] amoxicillin 500 mg caps ATH NORMA ([facility]) albuterol sulfate HFA 90 mcg/actuation a erosol inhaler USE 2 PUFFS BY MOUTH EVERY 4 HOURS NEEDED FOR COUGH [place]UG[place]IN ([facility]) albuterol sulfate hfa 108 mcg/act aers AUGUSTIN ([facility]) albuterol sulfate hfa 108 mcg/act aers [place]IN ([facility]) zonisamide 50 MG Oral Capsule [place]IN ([facility]) zonisamide 50 MG Oral Capsule [place]IN ([facility]) venlafaxine hydrochloride er 75 mg cp24 [place]IN ([facility]) 24 HR venlafaxine 75 MG Extended Release Oral Capsule [place]IN ([facility]) tramadol hcl 50 mg tabs ATH NORMA ([facility]) Flint Oil 1,000 mg capsule Take 1 capsule every day by oral rout e. [place]IN ([facility]) paroxetine hydrochloride 10 mg tabs [place]IN ([facility]) paroxetine 10 mg tablet ATHE NA ([facility]) Omeprazole 40 MG Delayed Release Oral Capsule [place]IN ([facility]) Naproxen 500 MG Oral Tablet [place] ([facility]) Naproxen 250 MG Oral Tablet [place] ([facility]) naproxen 500 mg tabs [place]IN ([facility]) venlafaxine hydrochloride er 75 mg cp24 [place] ([facility]) 24 HR venlafaxine 75 MG Extended Release Oral Capsule [place]IN ([facility]) tramadol hcl 50 mg tabs ATH NORMA ([facility]) Flint Oil 1,000 mg capsule Take 1 capsule every day by oral rout e. [place]IN ([facility]) paroxetine hydrochloride 10 mg tabs A[place]IN ([facility]) methylprednisolone dose pack 4 mg tbpk [place]IN ([facility]) paroxetine 10 mg tablet ATHE NA ([facility]) Naproxen 500 MG Oral Tablet [place] ([facility]) Methocarbamol 750 MG Oral Tablet [place]IN ([facility]) methocarbamol 750 mg tabs A THENA ([facility]) Lorazepam 1 MG Oral Tablet A THENA ([facility]) Naproxen 250 MG Oral Tablet [place]IN ([facility]) naproxen 500 mg tabs A[place]IN ([facility]) methylprednisolone dose pack 4 mg tbpk AUG[place]IN ([facility]) methocarbamol 750 mg tabs A THENA ([facility]) Lorazepam 1 MG Oral Tablet A THENA ([facility]) Lidocaine Hydrochloride 30 MG/ML Topical Cream [place]IN ([facility]) lidoc/banop/mi ac SWISH AND SPIT WITH 10 ML FOUR TIMES A DAY NEEDED FOR MUCOSITIS [place]IN ([facility] latanoprost 0.005 % soln AT PATRICIO ([facility]) ketotifen fumarate 0.025 % soln [place]IN ([facility]) Ketotifen 0.25 MG/ML Ophthalmic Solution AUGUSTIN ([facility]) Ibuprofen 600 MG Oral Tablet AUGUSTIN ([facility]) ibuprofen 800 mg tabs ATHEN A ([facility]) hydroco/apap tab 5-325mg ATH NORMA ([facility]) gabapentin 800 mg tabs ATHE NA ([facility]) fluticasone propionate 50 mcg/actuation nasal spray,suspension A[place]IN ([facility]) fluticasone propionate 50 mcg/act susp [place]IN ([facility]) fluconazole 150 mg tabs ATH NORMA ([facility]) cetirizine hydrochloride 10 MG Oral Tablet AUG[place]IN ([facility]) Carisoprodol 350 MG Oral Tablet AUG[place]IN ([facility]) brimonidine tartrate 0.2 % soln A[place]IN ([facility]) Brimonidine tartrate 2 MG/ML Ophthalmic Solution AUGUSTIN ([facility]) baclofen 10 mg tabs AUGUSTIN ([facility]) hydroco/apap tab 5-325mg ATH NORMA ([facility]) Lidocaine Hydrochloride 30 MG/ML Topical Cream AUGUSTIN ([facility]) gabapentin 800 mg tabs ATHE NA ([facility]) fluticasone propionate 50 mcg/actuation nasal spray,suspension AUG[place]IN ([facility]) fluticasone propionate 50 mcg/act susp A[place]USTIN ([facility]) lidoc/banop/mi ac SWISH AND SPIT WITH 10 ML FOUR TIMES A DAY NEEDED FOR MUCOSITIS [place]IN ([facility]) Fluconazole 150 MG Oral Tablet AUGUSTIN ([facility]) latanoprost 0.005 % soln AT PATRICIO ([facility]) fluconazole 150 mg tabs ATH NORMA ([facility]) ketotifen fumarate 0.025 % soln AUGUSTIN ([facility]) Ketotifen 0.25 MG/ML Ophthalmic Solution AUGUSTIN ([facility]) Ibuprofen 600 MG Oral Tablet AUG[place]IN ([facility]) ibuprofen 800 mg tabs ATHEN A ([facility]) cetirizine hydrochloride 10 MG Oral Tablet AUG[place]IN ([facility]) Carisoprodol 350 MG Oral Tablet AUG[place]IN ([facility]) brimonidine tartrate 0.2 % soln AUGUSTIN ([facility]) Brimonidine tartrate 2 MG/ML Ophthalmic Solution AUGUSTIN ([facility]) baclofen 10 mg tabs AUGUSTIN ([facility]) artificial tears 1.4 % soln AUG[place]IN ([facility]) Amoxicillin 500 MG Oral Capsule AUGUSTIN ([facility]) amoxicillin 500 mg caps ATH NORMA ([facility]) albuterol sulfate HFA 90 mcg/actuation a erosol inhaler USE 2 PUFFS BY MOUTH EVERY 4 HOURS NEEDED FOR COUGH [place]UGUSTIN ([facility]) albuterol sulfate hfa 108 mcg/act aers AUGUSTIN ([facility]) brimonidine tartrate 0.2 % soln [place]IN ([facility]) Brimonidine tartrate 2 MG/ML Ophthalmic Solution AUGUSTIN ([facility]) baclofen 10 mg tabs AUG[place]IN ([facility]) artificial tears 1.4 % soln AUG[place]IN ([facility]) Amoxicillin 500 MG Oral Capsule A[place]IN ([facility]) amoxicillin 500 mg caps ATH NORMA ([facility]) albuterol sulfate HFA 90 mcg/actuation a erosol inhaler USE 2 PUFFS BY MOUTH EVERY 4 HOURS NEEDED FOR COUGH [place]UGUSTIN ([facility]) albuterol sulfate hfa 108 mcg/act aers AUGUSTIN ([facility]) zonisamide 50 MG Oral Capsule AUGUSTIN ([facility]) zonisamide 50 MG Oral Capsule [place]IN ([facility] venlafaxine hydrochloride er 75 mg cp24 [place]IN ([facility]) 24 HR venlafaxine 75 MG Extended Release Oral Capsule [place]UG[place]IN ([facility]) tramadol hcl 50 mg tabs ATH NORMA ([facility]) Flint Oil 1,000 mg capsule Take 1 capsule every day by oral rout e. AUGUSTIN ([facility]) paroxetine hydrochloride 10 mg tabs AUG[place]IN ([facility]) paroxetine 10 mg tablet ATHE NA ([facility]) Omeprazole 40 MG Delayed Release Oral Capsule [place]IN ([facility]) Naproxen 500 MG Oral Tablet [place] ([facility]) Naproxen 250 MG Oral Tablet [place]IN ([facility]) naproxen 500 mg tabs AUG[place]IN ([facility]) methylprednisolone dose pack 4 mg tbpk AUG[place]IN ([facility]) Methocarbamol 750 MG Oral Tablet AUGUSTIN ([facility]) methocarbamol 750 mg tabs A THENA ([facility]) Lorazepam 1 MG Oral Tablet A THENA ([facility]) Lidocaine Hydrochloride 30 MG/ML Topical Cream AUGUSTIN ([facility]) lidoc/banop/mi ac SWISH AND SPIT WITH 10 ML FOUR TIMES A DAY NEEDED FOR MUCOSITIS [facility] latanoprost 0.005 % soln AT PATRICIO ([facility]) ketotifen fumarate 0.025 % soln AUGUSTIN ([facility]) Ketotifen 0.25 MG/ML Ophthalmic Solution [facility]USTIN ([facility]) Ibuprofen 600 MG Oral Tablet AUGUSTIN ([facility]) ibuprofen 800 mg tabs ATHEN A ([facility]) hydroco/apap tab 5-325mg ATH NORMA ([facility]) gabapentin 800 mg tabs ATHE NA ([facility]) fluticasone propionate 50 mcg/actuation nasal spray,suspension [place]IN ([facility]) venlafaxine hydrochloride er 75 mg cp24 AUG[place]IN ([facility]) 24 HR venlafaxine 75 MG Extended Release Oral Capsule AUGUSTIN ([facility]) tramadol hcl 50 mg tabs ATH NORMA ([facility]) Flint Oil 1,000 mg capsule Take 1 capsule every day by oral rout e. AUGUSTIN ([facility]) paroxetine hydrochloride 10 mg tabs AUGUSTIN ([facility]) paroxetine 10 mg tablet ATHE NA ([facility]) Omeprazole 40 MG Delayed Release Oral Capsule AUGUSTIN ([facility]) Naproxen 500 MG Oral Tablet [place]UG[place]IN ([facility]) Naproxen 250 MG Oral Tablet A[place]IN ([facility]) naproxen 500 mg tabs AUGUSTIN ([facility]) methylprednisolone dose pack 4 mg tbpk AUGUSTIN ([facility]) Methocarbamol 750 MG Oral Tablet AUGUSTIN ([facility]) methocarbamol 750 mg tabs A THENA ([facility]) Lorazepam 1 MG Oral Tablet A THENA ([facility]) Lidocaine Hydrochloride 30 MG/ML Topical Cream AUGUSTIN ([facility]) lidoc/banop/mi ac SWISH AND SPIT WITH 10 ML FOUR TIMES A DAY NEEDED FOR MUCOSITIS [facility] latanoprost 0.005 % soln AT PATRICIO ([facility]) fluticasone propionate 50 mcg/act susp AUGUSTIN ([facility]) Fluconazole 150 MG Oral Tablet AUGUSTIN ([facility] fluconazole 150 mg tabs ATH NORMA ([facility]) cetirizine hydrochloride 10 MG Oral Tablet AUG[place]IN ([facility]) Carisoprodol 350 MG Oral Tablet AUG[place]IN ([facility]) brimonidine tartrate 0.2 % soln AUGUSTIN ([facility]) Brimonidine tartrate 2 MG/ML Ophthalmic Solution [place]IN ([facility]) baclofen 10 mg tabs AUGUSTIN ([facility]) ketotifen fumarate 0.025 % soln AUGUSTIN ([facility]) Ketotifen 0.25 MG/ML Ophthalmic Solution [place]IN ([facility]) Ibuprofen 600 MG Oral Tablet [place]UG[place]IN ([facility]) ibuprofen 800 mg tabs ATHEN A ([facility]) hydroco/apap tab 5-325mg ATH NORMA ([facility]) gabapentin 800 mg tabs ATHE NA ([facility]) fluticasone propionate 50 mcg/actuation nasal spray,suspension A[place]IN ([facility]) fluticasone propionate 50 mcg/act susp AUGUSTIN ([facility]) artificial tears 1.4 % soln AUGUSTIN ([facility] Amoxicillin 500 MG Oral Capsule [place]IN ([facility]) Fluconazole 150 MG Oral Tablet [place]IN ([facility]) amoxicillin 500 mg caps ATH NORMA ([facility]) albuterol sulfate HFA 90 mcg/actuation a erosol inhaler USE 2 PUFFS BY MOUTH EVERY 4 HOURS NEEDED FOR COUGH AUGUSTIN ([facility]) fluconazole 150 mg tabs ATH NORMA ([facility]) albuterol sulfate hfa 108 mcg/act aers AUGUSTIN ([facility]) zonisamide 50 MG Oral Capsule [place]UG[place]IN ([facility]) venlafaxine hydrochloride er 75 mg cp24 AUG[place]IN ([facility]) 24 HR venlafaxine 75 MG Extended Release Oral Capsule [place]UG[place]IN ([facility]) tramadol hcl 50 mg tabs ATH NORMA ([facility]) Flint Oil 1,000 mg capsule Take 1 capsule every day by oral rout e. [place]IN ([facility]) paroxetine hydrochloride 10 mg tabs AUG[place]IN ([facility]) paroxetine 10 mg tablet ATHE NA ([facility]) Omeprazole 40 MG Delayed Release Oral Capsule [place]IN ([facility] Naproxen 500 MG Oral Tablet [place]IN ([facility]) Naproxen 250 MG Oral Tablet [place]IN ([facility]) naproxen 500 mg tabs A[place]IN ([facility]) methylprednisolone dose pack 4 mg tbpk AUG[place]IN ([facility]) venlafaxine hydrochloride er 75 mg cp24 [place]IN ([facility]) 24 HR venlafaxine 75 MG Extended Release Oral Capsule [place]UG[place]IN ([facility]) tramadol hcl 50 mg tabs ATH NORMA ([facility]) Flint Oil 1,000 mg capsule Take 1 capsule every day by oral rout e. [place]IN ([facility]) paroxetine hydrochloride 10 mg tabs A[place]IN ([facility] paroxetine 10 mg tablet ATHE NA ([facility]) Naproxen 500 MG Oral Tablet [place]IN ([facility]) Naproxen 250 MG Oral Tablet [place]IN ([facility]) naproxen 500 mg tabs AUG[place]IN ([facility]) methylprednisolone dose pack 4 mg tbpk AUGUSTIN ([facility]) methocarbamol 750 mg tabs A THENA ([facility]) Lorazepam 1 MG Oral Tablet A THENA ([facility]) Lidocaine Hydrochloride 30 MG/ML Topical Cream AUGUSTIN ([facility]) latanoprost 0.005 % soln AT PATRICIO ([facility]) Ibuprofen 600 MG Oral Tablet AUG[place]IN ([facility]) ibuprofen 800 mg tabs ATHEN A ([facility]) hydroco/apap tab 5-325mg ATH NORMA ([facility]) gabapentin 800 mg tabs ATHE NA ([facility]) fluticasone propionate 50 mcg/actuation nasal spray,suspension AUGUSTIN ([facility]) fluticasone propionate 50 mcg/act susp [place]USTIN ([facility]) fluconazole 150 mg tabs ATH NORMA ([facility]) Carisoprodol 350 MG Oral Tablet AUG[place]IN ([facility]) venlafaxine hydrochloride er 75 mg cp24 [place]UG[place]IN ([facility]) 24 HR venlafaxine 75 MG Extended Release Oral Capsule [place]UG[place]IN ([facility]) tramadol hcl 50 mg tabs ATH NORMA ([facility] brimonidine tartrate 0.2 % soln AUGUSTIN ([facility]) Brimonidine tartrate 2 MG/ML Ophthalmic Solution [place]UG[place]IN ([facility] Baclofen 10 MG Oral Tablet A THENA ([facility]) baclofen 10 mg tabs AUGUSTIN ([facility]) artificial tears 1.4 % soln AUGUSTIN ([facility] Amoxicillin 500 MG Oral Capsule [place]UG[place]IN ([facility]) amoxicillin 500 mg caps ATH NORMA ([facility]) albuterol sulfate HFA 90 mcg/actuation a erosol inhaler USE 2 PUFFS BY MOUTH EVERY 4 HOURS NEEDED FOR COUGH AUGUSTIN ([facility]) albuterol sulfate hfa 108 mcg/act aers AUGUSTIN ([facility]) Flint Oil 1,000 mg capsule Take 1 capsule every day by oral rout e. AUG[place]IN ([facility]) paroxetine hydrochloride 10 mg tabs A[place]IN ([facility]) paroxetine 10 mg tablet ATHE NA ([facility]) Naproxen 500 MG Oral Tablet [place]UG[place]IN ([facility]) Naproxen 250 MG Oral Tablet [place]IN ([facility]) naproxen 500 mg tabs AUG[place]IN ([facility]) methylprednisolone dose pack 4 mg tbpk AUGUSTNI ([facility]) methocarbamol 750 mg tabs A THENA ([facility]) Lorazepam 1 MG Oral Tablet A THENA ([facility]) Lidocaine Hydrochloride 30 MG/ML Topical Cream AUGUSTIN ([facility]) latanoprost 0.005 % soln AT PATRICIO ([facility]) Ibuprofen 600 MG Oral Tablet AUGUSTIN ([facility]) ibuprofen 800 mg tabs ATHEN A ([facility]) hydroco/apap tab 5-325mg ATH NORMA ([facility]) gabapentin 800 mg tabs ATHE NA ([facility]) fluticasone propionate 50 mcg/actuation nasal spray,suspension AUGUSTIN ([facility]) fluticasone propionate 50 mcg/act susp AUGUSTIN ([facility]) fluconazole 150 mg tabs ATH NORMA ([facility]) Carisoprodol 350 MG Oral Tablet AUG[place]IN ([facility]) brimonidine tartrate 0.2 % soln AUG[place]IN ([facility]) Brimonidine tartrate 2 MG/ML Ophthalmic Solution AUGUSTIN ([facility]) Baclofen 10 MG Oral Tablet A THENA ([facility]) baclofen 10 mg tabs AUGUSTIN ([facility]) artificial tears 1.4 % soln AUGUSTIN ([facility]) Amoxicillin 500 MG Oral Capsule A[place]IN ([facility]) amoxicillin 500 mg caps ATH NROMA ([facility]) albuterol sulfate HFA 90 mcg/actuation a erosol inhaler USE 2 PUFFS BY MOUTH EVERY 4 HOURS NEEDED FOR COUGH AUGUSTIN ([facility]) albuterol sulfate hfa 108 mcg/act aers AUGUSTIN ([facility] cetirizine hydrochloride 10 MG Oral Tablet AUG[place]IN ([facility]) Carisoprodol 350 MG Oral Tablet AUG[place]IN ([facility]) brimonidine tartrate 0.2 % soln AUGUSTIN ([facility]) Brimonidine tartrate 2 MG/ML Ophthalmic Solution AUGUSTIN ([facility]) baclofen 10 mg tabs AUGUSTIN ([facility]) artificial tears 1.4 % soln AUGUSTIN ([facility]) Amoxicillin 500 MG Oral Capsule [place]IN ([facility]) amoxicillin 500 mg caps ATH NORMA ([facility]) albuterol sulfate HFA 90 mcg/actuation a erosol inhaler USE 2 PUFFS BY MOUTH EVERY 4 HOURS NEEDED FOR COUGH [place]UG[place]IN ([facility]) albuterol sulfate hfa 108 mcg/act aers AUGUSTIN ([facility]) venlafaxine hydrochloride er 75 mg cp24 AUG[place]IN ([facility]) 24 HR venlafaxine 75 MG Extended Release Oral Capsule AUG[place]IN ([facility]) tramadol hcl 50 mg tabs ATH NORMA ([facility]) Flint Oil 1,000 mg capsule Take 1 capsule every day by oral rout e. AUGUSTIN ([facility]) paroxetine hydrochloride 10 mg tabs AUG[place]IN ([facility]) paroxetine 10 mg tablet ATHE NA ([facility]) Naproxen 500 MG Oral Tablet [place]UG[place]IN ([facility]) Naproxen 250 MG Oral Tablet [place]IN ([facility]) naproxen 500 mg tabs AUGUSTIN ([facility]) methylprednisolone dose pack 4 mg tbpk AUGUSTIN ([facility]) methocarbamol 750 mg tabs A THENA ([facility]) Lorazepam 1 MG Oral Tablet A THENA ([facility]) Lidocaine Hydrochloride 30 MG/ML Topical Cream AUGUSTIN ([facility]) latanoprost 0.005 % soln AT PATRICIO ([facility]) Ibuprofen 600 MG Oral Tablet AUGUSTIN ([facility]) ibuprofen 800 mg tabs ATHEN A ([facility]) hydroco/apap tab 5-325mg ATH NORMA ([facility]) gabapentin 800 mg tabs ATHE NA ([facility]) fluticasone propionate 50 mcg/actuation nasal spray,suspension AUGUSTIN ([facility]) fluticasone propionate 50 mcg/act susp [place]USTIN ([facility]) fluconazole 150 mg tabs ATH NORMA ([facility]) Carisoprodol 350 MG Oral Tablet AUG[place]IN ([facility]) brimonidine tartrate 0.2 % soln AUGUSTIN ([facility]) Brimonidine tartrate 2 MG/ML Ophthalmic Solution AUGUSTIN ([facility]) Baclofen 10 MG Oral Tablet A THENA ([facility]) baclofen 10 mg tabs A[place]USTIN ([facility]) artificial tears 1.4 % soln AUGUSTIN ([facility]) Amoxicillin 500 MG Oral Capsule [place]IN ([facility]) amoxicillin 500 mg caps ATH NORMA ([facility]) albuterol sulfate HFA 90 mcg/actuation a erosol inhaler USE 2 PUFFS BY MOUTH EVERY 4 HOURS NEEDED FOR COUGH AUGUSTIN ([facility]) albuterol sulfate hfa 108 mcg/act aers [place]UG[place]IN ([facility]) tramadol hcl 50 mg tabs ATH NORMA ([facility]) Naproxen 250 MG Oral Tablet AUG[place]IN ([facility]) naproxen 500 mg tabs A[place]IN ([facility]) methylprednisolone dose pack 4 mg tbpk AUG[place]IN ([facility]) methocarbamol 750 mg tabs A THENA ([facility]) Lidocaine Hydrochloride 30 MG/ML Topical Cream AUGUSTIN ([facility]) latanoprost 0.005 % soln AT PATRICIO ([facility]) ibuprofen 800 mg tabs ATHEN A ([facility]) gabapentin 800 mg tabs ATHE NA ([facility]) fluticasone propionate 50 mcg/act susp AUG[place]IN ([facility] fluconazole 150 mg tabs ATH NORMA ([facility]) Carisoprodol 350 MG Oral Tablet AUGUSTIN ([facility]) brimonidine tartrate 0.2 % soln AUG[place]IN ([facility]) Baclofen 10 MG Oral Tablet A THENA ([facility]) baclofen 10 mg tabs A[facility]IN ([facility]) Amoxicillin 500 MG Oral Capsule AUG[facility]IN ([facility]) amoxicillin 500 mg caps ATH NORMA ([facility]) albuterol sulfate hfa 108 mcg/act aers AUGUSTIN ([facility]) Lidocaine Hydrochloride 30 MG/ML Topical Cream AUGUSTIN ([facility]) latanoprost 0.005 % soln AT PATRICIO ([facility]) tramadol hcl 50 mg tabs ATH NORMA ([facility]) ibuprofen 800 mg tabs ATHEN A ([facility]) gabapentin 800 mg tabs ATHE NA ([facility] Naproxen 250 MG Oral Tablet AUG[place]IN ([facility]) naproxen 500 mg tabs AUGUSTIN ([facility]) methylprednisolone dose pack 4 mg tbpk AUG[place]IN ([facility]) methocarbamol 750 mg tabs A THENA ([facility]) fluticasone propionate 50 mcg/act susp A[place]IN ([facility]) fluconazole 150 mg tabs ATH NORMA ([facility]) Carisoprodol 350 MG Oral Tablet AUG[place]IN ([facility]) brimonidine tartrate 0.2 % soln [place]IN ([facility]) Baclofen 10 MG Oral Tablet A THENA ([facility]) baclofen 10 mg tabs AUGUSTIN ([facility]) Amoxicillin 500 MG Oral Capsule AUG[place]IN ([facility]) amoxicillin 500 mg caps ATH NORMA ([facility]) albuterol sulfate hfa 108 mcg/act aers AUGUSTIN ([facility]) tramadol hcl 50 mg tabs ATH NORMA ([facility]) Naproxen 250 MG Oral Tablet AUG[place]IN ([facility]) naproxen 500 mg tabs A[place]IN ([facility] tramadol hcl 50 mg tabs ATH NORMA ([facility]) Naproxen 250 MG Oral Tablet AUG[place]IN ([facility]) naproxen 500 mg tabs A[place]IN ([facility]) methylprednisolone dose pack 4 mg tbpk AUGUSTIN ([facility]) methylprednisolone dose pack 4 mg tbpk A[facility]IN ([facility]) methocarbamol 750 mg tabs A THENA ([facility]) methocarbamol 750 mg tabs A THENA ([facility]) Lidocaine Hydrochloride 30 MG/ML Topical Cream AUGUSTIN ([facility]) latanoprost 0.005 % soln AT PATRICIO ([facility]) Lidocaine Hydrochloride 30 MG/ML Topical Cream AUGUSTIN ([facility]) ibuprofen 800 mg tabs ATHEN A ([facility] latanoprost 0.005 % soln AT PATRICIO ([facility]) gabapentin 800 mg tabs ATHE NA ([facility]) fluticasone propionate 50 mcg/act susp AUGUSTIN ([facility]) fluconazole 150 mg tabs ATH NORMA ([facility] Naproxen 250 MG Oral Tablet AUGUSTIN ([facility]) Carisoprodol 350 MG Oral Tablet AUGUSTIN ([facility]) brimonidine tartrate 0.2 % soln AUGUSTIN ([facility]) Baclofen 10 MG Oral Tablet A THENA ([facility]) baclofen 10 mg tabs AUGUSTIN ([facility]) Amoxicillin 500 MG Oral Capsule AUG[place]IN ([facility]) amoxicillin 500 mg caps ATH NORMA ([facility]) albuterol sulfate hfa 108 mcg/act aers AUGUSTIN ([facility]) naproxen 500 mg tabs AUGUSTIN ([facility]) methylprednisolone dose pack 4 mg tbpk AUGUSTIN ([facility]) methocarbamol 750 mg tabs A THENA ([facility]) Lidocaine Hydrochloride 30 MG/ML Topical Cream AUGUSTIN ([facility]) latanoprost 0.005 % soln AT PATRICIO ([facility]) ibuprofen 800 mg tabs ATHEN A ([facility]) gabapentin 800 mg tabs ATHE NA ([facility]) fluticasone propionate 50 mcg/act susp AUGUSTIN ([facility]) fluconazole 150 mg tabs ATH NORMA ([facility]) Carisoprodol 350 MG Oral Tablet AUGUSTIN ([facility]) brimonidine tartrate 0.2 % soln AUGUSTIN ([facility]) Baclofen 10 MG Oral Tablet A THENA ([facility]) baclofen 10 mg tabs AUGUSTIN ([facility]) Amoxicillin 500 MG Oral Capsule AUGUSTIN ([facility]) amoxicillin 500 mg caps ATH NORMA ([facility]) albuterol sulfate hfa 108 mcg/act aers AUGUSTIN ([facility]) tramadol hcl 50 mg tabs ATH NORMA ([facility]) Lidocaine Hydrochloride 30 MG/ML Topical Cream AUGUSTIN ([facility]) latanoprost 0.005 % soln AT PATRICIO ([facility]) Naproxen 250 MG Oral Tablet AUGUSTIN ([facility]) ibuprofen 800 mg tabs ATHEN A ([facility]) gabapentin 800 mg tabs ATHE NA ([facility]) fluticasone propionate 50 mcg/act susp AUGUSTIN ([facility] fluconazole 150 mg tabs ATH NORMA ([facility]) naproxen 500 mg tabs AUGUSTIN ([facility]) methylprednisolone dose pack 4 mg tbpk AUGUSTIN ([facility]) methocarbamol 750 mg tabs A THENA ([facility]) ibuprofen 800 mg tabs ATHEN A ([facility]) Carisoprodol 350 MG Oral Tablet AUGUSTIN ([facility]) brimonidine tartrate 0.2 % soln AUGUSTIN ([facility]) Baclofen 10 MG Oral Tablet A THENA ([facility]) baclofen 10 mg tabs AUGUSTIN ([facility]) Amoxicillin 500 MG Oral Capsule AUGUSTIN ([facility]) amoxicillin 500 mg caps ATH NORMA ([facility]) albuterol sulfate hfa 108 mcg/act aers AUGUSTIN ([facility]) gabapentin 800 mg tabs ATHE NA ([facility]) fluticasone propionate 50 mcg/act susp AUGUSTIN ([facility]) fluconazole 150 mg tabs ATH NORMA ([facility]) Carisoprodol 350 MG Oral Tablet AUGUSTIN ([facility]) brimonidine tartrate 0.2 % soln AUGUSTIN ([facility] Baclofen 10 MG Oral Tablet A THENA ([facility]) baclofen 10 mg tabs AUGUSTIN ([facility]) Amoxicillin 500 MG Oral Capsule AUGUSTIN ([facility]) amoxicillin 500 mg caps ATH NORMA ([facility]) albuterol sulfate hfa 108 mcg/act aers AUGUSTIN ([facility]) tramadol hcl 50 mg tabs ATH NORMA ([facility]) Naproxen 250 MG Oral Tablet AUGUSTIN ([facility]) naproxen 500 mg tabs AUGUSTIN ([facility]) methylprednisolone dose pack 4 mg tbpk AUGUSTIN ([facility]) methocarbamol 750 mg tabs A THENA ([facility]) Lidocaine Hydrochloride 30 MG/ML Topical Cream AUGUSTIN ([facility]) latanoprost 0.005 % soln AT PATRICIO ([facility]) Baclofen 10 MG Oral Tablet A THENA ([facility]) baclofen 10 mg tabs AUGUSTIN ([facility]) Amoxicillin 500 MG Oral Capsule AUGUSTIN ([facility]) amoxicillin 500 mg caps ATH NORMA ([facility]) albuterol sulfate hfa 108 mcg/act aers AUGUSTIN ([facility]) tramadol hcl 50 mg tabs ATH NORMA ([facility]) tramadol hcl 50 mg tabs ATH NORMA ([facility]) Lidocaine Hydrochloride 30 MG/ML Topical Cream AUGUSTIN ([facility]) latanoprost 0.005 % soln AT PATRICIO ([facility]) ibuprofen 800 mg tabs ATHEN A ([facility]) gabapentin 800 mg tabs ATHE NA ([facility]) fluticasone propionate 50 mcg/act susp AUGUSTIN ([facility]) fluconazole 150 mg tabs ATH NORMA ([facility]) brimonidine tartrate 0.2 % soln AUGUSTIN ([facility]) baclofen 10 mg tabs AUGUSTIN ([facility]) Amoxicillin 500 MG Oral Capsule AUGUSTIN ([facility]) amoxicillin 500 mg caps ATH NORMA ([facility]) albuterol sulfate hfa 108 mcg/act aers AUGUSTIN ([facility]) tramadol hcl 50 mg tabs ATH NORMA ([facility]) Lidocaine Hydrochloride 30 MG/ML Topical Cream AUGUSTIN ([facility]) latanoprost 0.005 % soln AT PATRICIO ([facility]) ibuprofen 800 mg tabs ATHEN A ([facility]) Lidocaine Hydrochloride 30 MG/ML Topical Cream AUGUSTIN ([facility]) Lidocaine Hydrochloride 30 MG/ML Topical Cream AUGUSTIN ([facility]) latanoprost 0.005 % soln AT PATRICIO ([facility]) ibuprofen 800 mg tabs ATHEN A ([facility] gabapentin 800 mg tabs ATHE NA ([facility]) fluticasone propionate 50 mcg/act susp AUGUSTIN ([facility]) fluconazole 150 mg tabs ATH NORMA ([facility]) brimonidine tartrate 0.2 % soln AUGUSTIN ([facility]) baclofen 10 mg tabs AUGUSTIN ([facility]) Amoxicillin 500 MG Oral Capsule AUGUSTIN ([facility]) amoxicillin 500 mg caps ATH NORMA ([facility]) albuterol sulfate hfa 108 mcg/act aers AUGUSTIN ([facility]) ibuprofen 800 mg tabs ATHEN A ([facility]) gabapentin 800 mg tabs ATHE NA ([facility]) fluticasone propionate 50 mcg/act susp AUGUSTIN ([facility]) fluconazole 150 mg tabs ATH NORMA ([facility]) Carisoprodol 350 MG Oral Tablet AUGUSTIN ([facility]) brimonidine tartrate 0.2 % soln AUGUSTIN ([facility]) Baclofen 10 MG Oral Tablet A THENA ([facility]) baclofen 10 mg tabs AUGUSTIN ([facility]) Amoxicillin 500 MG Oral Capsule AUGUSTIN ([facility]) amoxicillin 500 mg caps ATH NORMA ([facility]) albuterol sulfate hfa 108 mcg/act aers AUGUSTIN ([facility]) latanoprost 0.005 % soln AT PATRICIO ([facility]) ibuprofen 800 mg tabs ATHEN A ([facility]) gabapentin 800 mg tabs ATHE NA ([facility]) fluticasone propionate 50 mcg/act susp AUGUSTIN ([facility]) fluconazole 150 mg tabs ATH NORMA ([facility]) brimonidine tartrate 0.2 % soln AUGUSTIN ([facility]) baclofen 10 mg tabs AUGUSTIN ([facility]) Amoxicillin 500 MG Oral Capsule AUGUSTIN ([facility]) amoxicillin 500 mg caps ATH NORMA ([facility]) albuterol sulfate hfa 108 mcg/act aers AUGUSTIN ([facility]) tramadol hcl 50 mg tabs ATH NORMA ([facility]) Naproxen 250 MG Oral Tablet AUGUSTIN ([facility]) naproxen 500 mg tabs AUGUSTIN ([facility]) methylprednisolone dose pack 4 mg tbpk AUGUSTIN ([facility]) methocarbamol 750 mg tabs A THENA ([facility]) Lidocaine Hydrochloride 30 MG/ML Topical Cream AUGUSTIN ([facility]) latanoprost 0.005 % soln AT PATRICIO ([facility]) ibuprofen 800 mg tabs ATHEN A ([facility]) gabapentin 800 mg tabs ATHE NA ([facility]) fluticasone propionate 50 mcg/act susp AUGUSTIN ([facility]) fluconazole 150 mg tabs ATH NORMA ([facility]) Carisoprodol 350 MG Oral Tablet AUGUSTIN ([facility]) brimonidine tartrate 0.2 % soln AUGUSTIN ([facility]) tramadol hcl 50 mg tabs ATH NORMA ([facility]) gabapentin 800 mg tabs ATHE NA ([facility]) fluticasone propionate 50 mcg/act susp AUGUSTIN ([facility]) fluconazole 150 mg tabs ATH NORMA ([facility]) brimonidine tartrate 0.2 % soln AUGUSTIN ([facility]) baclofen 10 mg tabs AUGUSTIN ([facility]) Amoxicillin 500 MG Oral Capsule AUGUSTIN ([facility]) amoxicillin 500 mg caps ATH NORMA ([facility]) albuterol sulfate hfa 108 mcg/act aers AUGUSTIN ([facility]) tramadol hcl 50 mg tabs ATH NORMA ([facility])
--- NOTE | 2021-07-12 19:30 | ECGEPIP ---
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
== END 2021-07-11 16:49 | disposition short-term general hospital (02) ==
LOC: M ED 14:46
DX: I21.3 ST elevation (STEMI) myocardial infarction of unspecified site (principal); G43.909 Migraine, unspecified, not intractable, without status migrainosus; F17.200 Nicotine dependence, unspecified, uncomplicated; Z79.899 Other long term (current) drug therapy; Z91.89 Other specified personal risk factors, not elsewhere classified; Z88.5 Allergy status to narcotic agent; Z88.8 Allergy status to other drugs, medicaments and biological substances; Z91.040 Latex allergy status
CPT/HCPCS: 36415; 71045; 80047; 80048; 80076; 82550; 82553; 83880; 84443; 85025; 85610; 85730; 87798; 93005; 93041; 94760; 96365; 96375; 96376; 99285; J1644; J3101

== ENCOUNTER 2022-01-14 15:28 | Emergency (ER) | payer OTHER ==
[~2022-01-14] VITALS: Ht 160 cm; Wt 104.5 kg
[~2022-01-14 15:28] MED LIST changes: -OMEP-221; +OMEP40CA5
[2022-01-14 15:29] VITALS: BP 178/86
== END 2022-01-14 15:58 | disposition left against medical advice (07) ==
LOC: M ED 15:28
DX: Z53.21 Procedure and treatment not carried out due to patient leaving prior to being seen by health care provider (principal)

== ENCOUNTER → 2022-06-16 | Outpatient (CLI) | payer OTHER ==
[2022-06-16 13:34] LABS: HEMATOCRIT 37.8 % (36.0-47.0); HEMOGLOBIN 11.9 g/dl (12.0-15.5); MEAN CORPUSCULAR HGB CONC 31.5 g/dl (32.0-36.5); PLATELET COUNT, AUTOMATED 336 10^3/uL (150-450); RED BLOOD COUNT 4.11 10^6/uL (4.00-5.40); WHITE BLOOD COUNT 5.3 10^3/uL (4.0-10.0)
[2022-06-16 14:15] LABS: ALT/SGPT 23 U/L (12-78); BILIRUBIN,TOTAL 0.3 MG/DL (0.2-1.0); BLOOD UREA NITROGEN 13 MG/DL (7-18); CALCIUM LEVEL 9.6 MG/DL (8.5-10.1); CARBON DIOXIDE LEVEL 27 MEQ/L (21-32); CHLORIDE LEVEL 108 MEQ/L (98-107); CHOLESTEROL LEVEL 163 MG/DL (<200); CHOLESTEROL RISK RATIO 4.075 (<5); CREATININE FOR GFR 0.78 MG/DL (0.55-1.30); GLOMERULAR FILTRATION RATE > 60.0 (>51); GLUCOSE, FASTING 120 MG/DL (70-100); HDL CHOLESTEROL 40 MG/DL (>40); LDL CHOLESTEROL 76 MG/DL (<100); NON-HDL-C 123 MG/DL; POTASSIUM SERUM 5.2 MEQ/L (3.5-5.1); SODIUM LEVEL 138 MEQ/L (136-145); TOTAL PROTEIN 8.2 GM/DL (6.4-8.2); TRIGLYCERIDES LEVEL 237 MG/DL (<150)
== END ==
LOC: M PLALAB 10:11
PROVIDERS: ATTEND Nurse Practitioner Adult Health
DX: J45.909 Unspecified asthma, uncomplicated (principal)

== ENCOUNTER → 2023-06-14 | Outpatient (CLI) | payer OTHER ==
[~2023-06-14] MED LIST changes: -AKWASOL OU; +ARTIDRO2 OU; +CELE0.09 PO; -CELE1CAP9 PO; -KETO0.02; +KETO5DRO33; +MONT-5 PO; -SING10TA32 PO; +TIMO0.5S20; -TIMO0.5S29
== END ==
LOC: M PLAIMG 14:20
PROVIDERS: ATTEND Pain Medicine Interventional Pain Medicine
DX: M54.12 Radiculopathy, cervical region (principal)

== ENCOUNTER → 2023-10-24 | Outpatient (CLI) | payer OTHER ==
[2023-10-24 15:54] LABS: HEMATOCRIT 35.9 % (36.0-47.0); HEMOGLOBIN 10.9 g/dl (12.0-15.5); MEAN CORPUSCULAR HEMOGLOBIN 26.1 pg (27.0-33.0); MEAN CORPUSCULAR HGB CONC 30.4 g/dl (32.0-36.5); MEAN CORPUSCULAR VOLUME 86.1 fl (80.0-96.0); PLATELET COUNT, AUTOMATED 342 10^3/uL (150-450); RED BLOOD COUNT 4.17 10^6/uL (4.00-5.40); WHITE BLOOD COUNT 7.7 10^3/uL (4.0-10.0)
[2023-10-24 16:22] LABS: HEMOGLOBIN A1c 6.1 % (4.0-6.0)
[2023-10-24 16:29] LABS: FERRITIN 16.5 NG/ML (7.3-270.7)
[2023-10-24 16:30] LABS: THYROID STIMULATING HORMONE 0.826 uIU/ML (0.55-4.78)
[2023-10-24 16:53] LABS: ALBUMIN 3.9 G/DL (3.2-5.2); ALKALINE PHOSPHATASE 96 U/L (46-116); ALT/SGPT 21 U/L (7.0-40); AST/SGOT 34 U/L (<34); BILIRUBIN,TOTAL 0.4 MG/DL (0.3-1.2); BLOOD UREA NITROGEN 15 MG/DL (9-23); CALCIUM LEVEL 9.2 MG/DL (8.5-10.1); CARBON DIOXIDE LEVEL 26 MMOL/L (20-31); CHLORIDE LEVEL 106 MMOL/L (98-107); CHOLESTEROL LEVEL 281 MG/DL (<200); GLOMERULAR FILTRATION RATE > 60.0 (>51); GLUCOSE, FASTING 102 MG/DL (60-100); HDL CHOLESTEROL 35.1 MG/DL (>40); LDL CHOLESTEROL 183.1 MG/DL (<100); NON-HDL-C 245.9 MG/DL; POTASSIUM SERUM 4.9 MMOL/L (3.5-5.1); SODIUM LEVEL 137 MMOL/L (136-145); TOTAL PROTEIN 7.8 G/DL (5.7-8.2); TRIGLYCERIDES LEVEL 314 MG/DL (<150)
== END ==
LOC: M PLALAB 14:14
PROVIDERS: ATTEND Nurse Practitioner Adult Health
DX: J45.909 Unspecified asthma, uncomplicated (principal); K21.9 Gastro-esophageal reflux disease without esophagitis; Z83.3 Family history of diabetes mellitus; Z13.220 Encounter for screening for lipoid disorders; Z13.29 Encounter for screening for other suspected endocrine disorder; Z95.5 Presence of coronary angioplasty implant and graft

== ENCOUNTER → 2023-11-22 | Outpatient (CLI) | payer OTHER | LOC: M RAD 14:58 | PROVIDERS: ATTEND Pain Medicine Interventional Pain Medicine | DX: M25.552 Pain in left hip (principal) ==

== ENCOUNTER 2023-12-01 15:11 | Emergency (ER) | payer OTHER ==
[~2023-12-01] VITALS: Ht 157.5 cm; Wt 122.7 kg
[2023-12-01] MEDS ORDERED: CARV3.12 (15:20)
[2023-12-01] MEDS ORDERED: ATOR80TA59 (15:20)
[2023-12-01] MEDS: ACETAMINOPHEN 500 MG TAB PO ONE (17:02)
[2023-12-01] MEDS ORDERED: METH-1164 PO (17:05)
[2023-12-01 17:13] VITALS: BP 152/82; TEMP 98.2; O2SAT 98
[2023-12-01] MEDS: ONDANSETRON 4MG ORAL DISINTEGRATING TAB PO ONE (17:14)
[2023-12-01] MEDS ORDERED: ONDANSETRON 4MG ORAL DISINTEGRATING TAB SL PRN (17:15)
== END 2023-12-01 17:15 | disposition home or self-care (01) ==
LOC: M ED 15:11
DX: S09.90XA Unspecified injury of head, initial encounter (principal); S13.4XXA Sprain of ligaments of cervical spine, initial encounter; V43.52XA Car driver injured in collision with other type car in traffic accident, initial encounter; Y92.410 Unspecified street and highway as the place of occurrence of the external cause; Y93.89 Activity, other specified; Y99.8 Other external cause status; J45.909 Unspecified asthma, uncomplicated; N18.9 Chronic kidney disease, unspecified; G43.909 Migraine, unspecified, not intractable, without status migrainosus; R56.9 Unspecified convulsions; M54.9 Dorsalgia, unspecified; M79.7 Fibromyalgia; Z87.891 Personal history of nicotine dependence; Z88.8 Allergy status to other drugs, medicaments and biological substances; Z91.040 Latex allergy status; Z88.5 Allergy status to narcotic agent

== ENCOUNTER → 2023-12-21 | Outpatient (CLI) | payer OTHER ==
[~2023-12-21] MED LIST changes: +ATOR80TA59; +CARV3.12; +METH-1164 PO
== END ==
LOC: M PLAIMG 14:56
PROVIDERS: ATTEND Pain Medicine Interventional Pain Medicine
DX: M25.552 Pain in left hip (principal)

== ENCOUNTER → 2024-02-06 | Outpatient (CLI) | payer OTHER ==
[~2024-02-06] MED LIST changes: +PROHANCE 279.3MG/ML 15ML VIAL As Ordered ONE; +PROHANCE 279.3MG/ML 5ML VIAL As Ordered ONE
== END ==
LOC: M RAD 11:33
PROVIDERS: ATTEND Pain Medicine Interventional Pain Medicine
DX: M25.551 Pain in right hip (principal)
CPT/HCPCS: 73723; A9576

== ENCOUNTER → 2024-06-11 | Outpatient (REF) | payer OTHER, MEDICAID ==
[~2024-06-11] MED LIST changes: +GABA-1635 PO; -GABA800T4 PO; -PROHANCE 279.3MG/ML 15ML VIAL As Ordered ONE; -PROHANCE 279.3MG/ML 5ML VIAL As Ordered ONE
[2024-06-14 15:22] LABS: HPV APTIMA Not Detected (Not Detected)
== END ==
LOC: M SFHCWAGY 18:05
PROVIDERS: ATTEND Nurse Practitioner Adult Health
DX: Z12.4 Encounter for screening for malignant neoplasm of cervix (principal); R87.5 Abnormal microbiological findings in specimens from female genital organs; R87.610 Atypical squamous cells of undetermined significance on cytologic smear of cervix (ASC-US)

== ENCOUNTER → 2025-01-08 | Outpatient (CLI) | payer OTHER ==
[2025-01-08 15:34] LABS: HEMATOCRIT 36.8 % (36.0-47.0); HEMOGLOBIN 11.3 g/dl (12.0-15.5); MEAN CORPUSCULAR HEMOGLOBIN 24.8 pg (27.0-33.0); MEAN CORPUSCULAR HGB CONC 30.7 g/dl (32.0-36.5); MEAN CORPUSCULAR VOLUME 80.9 fl (80.0-96.0); PLATELET COUNT, AUTOMATED 305 10^3/uL (150-450); RED BLOOD COUNT 4.55 10^6/uL (4.00-5.40); WHITE BLOOD COUNT 5.5 10^3/uL (4.0-10.0)
[2025-01-08 15:48] LABS: ALBUMIN 4.4 G/DL (3.2-5.2); ALKALINE PHOSPHATASE 130 U/L (35-104); ALT/SGPT 20 U/L (7.0-40); AST/SGOT 14 U/L (<34); BILIRUBIN,TOTAL 0.3 MG/DL (0.3-1.2); BLOOD UREA NITROGEN 10 MG/DL (9-23); CALCIUM LEVEL 9.5 MG/DL (8.5-10.1); CARBON DIOXIDE LEVEL 26 MMOL/L (20-31); CHLORIDE LEVEL 99 MMOL/L (98-107); CHOLESTEROL LEVEL 153 MG/DL (<200); FREE T4 0.91 NG/DL (0.89-1.76); GLOMERULAR FILTRATION RATE > 90.0 (>51); GLUCOSE, FASTING 405 MG/DL (60-100); HDL CHOLESTEROL 42.5 MG/DL (>40); LDL CHOLESTEROL 68.9 MG/DL (<100); NON-HDL-C 110.5 MG/DL; POTASSIUM SERUM 4.5 MMOL/L (3.5-5.1); SODIUM LEVEL 135 MMOL/L (136-145); THYROID STIMULATING HORMONE 1.376 uIU/ML (0.55-4.78); TOTAL PROTEIN 7.9 G/DL (5.7-8.2); TRIGLYCERIDES LEVEL 208 MG/DL (<150)
[2025-01-08 16:17] LABS: HEMOGLOBIN A1c > 14.0 % (4.0-6.0)
== END ==
LOC: M PLALAB 12:58
PROVIDERS: ATTEND Nurse Practitioner Adult Health
DX: Z95.5 Presence of coronary angioplasty implant and graft (principal)

== ENCOUNTER → 2025-06-24 | Outpatient (CLI) | payer OTHER ==
[~2025-06-24] MED LIST changes: -IBUP-1022 PO; -IBUP1TAB6 PO; +IBUP600T42 PO; +SFHIBU600 PO
[2025-06-24 16:06] LABS: ESTIMATED AVERAGE GLUCOSE 131.0 MG/DL (60-110)
[2025-06-24 16:14] LABS: ALT/SGPT 13 U/L (7.0-40); AST/SGOT 14 U/L (<34); CALCIUM LEVEL 9.3 MG/DL (8.5-10.1); CARBON DIOXIDE LEVEL 26 MMOL/L (20-31); CHLORIDE LEVEL 104 MMOL/L (98-107); CHOLESTEROL LEVEL 135 MG/DL (<200); CHOLESTEROL RISK RATIO 3.59 (<5); CREATININE FOR GFR 0.71 MG/DL (0.55-1.30); GLOMERULAR FILTRATION RATE > 90.0 (>51); LDL CHOLESTEROL 60.4 MG/DL (<100); NON-HDL-C 97.4 MG/DL; POTASSIUM SERUM 5.1 MMOL/L (3.5-5.1); SODIUM LEVEL 137 MMOL/L (136-145); TRIGLYCERIDES LEVEL 185 MG/DL (<150)
== END ==
LOC: M PLALAB 13:31
PROVIDERS: ATTEND Nurse Practitioner Adult Health
DX: E11.65 Type 2 diabetes mellitus with hyperglycemia (principal); E78.2 Mixed hyperlipidemia